=== PATIENT | female | born 1935 | race Caucasian/White ===

== ENCOUNTER 2017-12-19 06:01 | Inpatient (IN) | payer MEDICARE, OTHER, SELFPAY ==
[2017-12-04 14:38] VITALS: BP 141/81; PULSE 71; RESP 16; TEMP 36.2; O2SAT 95; BMI 32.1
--- NOTE | 2017-12-04 14:50 | SDCEKG_ITS ---
Test Reason : Blood Pressure : / mmHG Vent. Rate : 076 BPM Atrial Rate : 048 BPM P-R Int : 152 ms QRS Dur : 102 ms QT Int : 402 ms P-R-T Axes : 030 -02 036 degrees QTc Int : 452 ms Sinus rhythm with frequent Premature ventricular complexes Poor R wave progression Abnormal ECG Confirmed by CLARENCE DIXON, FLAKITO ([id number]), material expeditor JUAN J SALAZAR ([id number]) on 12/06/2017 11:34:57 AM Referred By: Camilo Maya Confirmed By:FLAKITO LIMA MD
[2017-12-04 15:18] LABS: Absolute Lymphocyte Count 1.33 X10^3/ul (0.83-4.51); Basophil# 0.04 X10^3/uL; Basophil% 0.6 % (0-1); Eosinophil# 0.09 X10^3/uL; Eosinophils% 1.3 % (0-5); Hematocrit 40.5 % (37-47); Hemoglobin 13.2 g/dl (12.0-15.0); Lymphocyte # 1.33 X10^3/ul (4.0); Lymphocyte % 18.6 % (19-41); Mean Corp Hgb Conc 32.6 g/gl (32-36); Mean Corpuscular Hgb 31.1 pg (27.0-32.0); Mean Corpuscular Volume 95.5 fL (81-99); Monocyte# 0.67 X10^3/uL; Monocyte% 9.4 % (0-10); Neutrophil # 5.01 X10^3/uL (2.7-7.7); Neutrophil % 69.8 % (47-70); Platelet Count 228 K/mm3 (150-450); RBC Distribution Width CV 12.8 % (11.6-14.6); RBC Distribution Width SD 43.1 fl (35.1-43.9); Red Blood Count 4.24 M/mm3 (4.2-5.4); White Blood Count 7.2 K/mm3 (4.4-11.0)
[2017-12-04 15:22] LABS: POSITIVE COUNT NO; POSITIVE DIFFERENTIAL NO; POSITIVE MORPHOLOGY NO
[2017-12-04 15:26] LABS: Partial Thromboplast Time 29.4 Seconds (24.1-36.2)
[2017-12-04 15:47] LABS: Anion Gap 6 (5-15); BUN 21 mg/dL (7-18); BUN/Creat Ratio 20.4 RATIO (10-20); Calcium,Total 9.1 mg/dL (8.5-10.1); Chloride 109 mmol/L (98-107); Creatinine, Serum 1.03 mg/dL (0.55-1.02); EST Glomerular Filtration Rate 55 mL/min (>60); Est Glom Filt Rate - Afr Amer 66 mL/min (>60); Glucose 105 mg/dL (70-110); Potassium 4.5 mmol/L (3.5-5.1); Sodium Level 146 mmol/L (136-145); Thyroid Stim Hormone (TSH) 0.95 uIU/mL (0.358-3.74)
[2017-12-04 16:00] LABS: Hemoglobin A1c 6.5 % (4.2-6.3)
--- NOTE | 2017-12-06 13:23 | HP.PCM_ITS ---
History and Physical DATE OF SERVICE: 12/19/2017 SCHEDULED PROCEDURE: Direct anterior right total hip arthroplasty HISTORY OF PRESENT ILLNESS: This is an 82-year-old female who is been having ongoing pain in her right hip for the past 6-8 months. Patient states her pain is constant, dull, aching, and sharp. She has increased pain walking any amount of distance and for standing. Sitting and laying down are temporarily helpful. She has increased pain with activities of daily living including housework and shopping. Patient states she has fallen as well as tripped and stumbled due to her right hip pain. Patient complains of pain over the right lateral hip that radiates down into the leg and foot. She does report some numbness and tingling. Pain does awaken her at night. Patient has tried conservative measures consisting of ice , heat, and elevation with temporary relief. She has tried physical therapy with no relief in symptoms. Patient has tried [id number] Tylenol as well as meloxicam with no significant relief in symptoms. She has been using a cane and walker due to the pain. She does wear a back brace. After failing conservative measures and discussing all treatment options with Dr. Maya, the patient would like to proceed with a right total hip arthroplasty. Patient has obtained surgical clearance from her primary care physician Dr. 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 Patient has a medical history pertinent for hypertension , diabetes, as well as nonischemic cardiomyopathy. He currently denies any chest pain, shortness of breath, fevers chills, or recent infections REVIEW OF SYSTEMS: ROS: Const: Denies anorexia, anxiety, change in appetite, fever, hard of hearing, vision problems and weight change. CV: Denies chest pain, heart murmur, irregular heartbeat and peripheral vascular disease. Resp: Denies asthma, cough, pneumonia, sleep apnea, SOB, tuberculosis and wheezing. GI: Reports heartburn, but denies constipation, diarrhea, difficulty swallowing , nausea, bloody stools and vomiting. : Genital: reports postmenopausal. Urinary: denies incontinence. Musculo: Denies leg swelling, limp, trouble walking and weakness. Skin: Denies Raynaud's, history of shingles and tattoo. Neuro: Denies ambulatory dysfunction, dizziness, numbness/tingling and tremor. Psych: Denies anxiety, depression, insomnia, mental illness and stress. Noe/Lymph: Denies anemia, bleeding/bruising tendency and past transfusion. Reviewed, no changes. PAST MEDICAL HISTORY: Advance Care Plan: Other Directive, POA Effective Date: 08/11/2016 Other Directive, LIVING WILL Effective Date: 08/11/2016 PMH: Medical Problems: Diabetes, High Blood Pressure, Asthma, Hypercholesterolemia, Thyroid Disease Accidents: None Surgical Hx: Bunion - BILAT FEET Finger - RT RING FINGER RT TKR - (06/28/2010) [place] @ [facility] LT Hip Nakul - (11/13/2012) [facility] @ [place] Back - (2011) Microdiskectomy - (03/2014) [place] @ [facility] Anesthesia Complications: None Assistive Devices: Glasses, Dentures - PARTIAL Reviewed, no changes. SOCIAL HISTORY: SH: Marital: .Occupation: Retired.Work Status: Retired.Hand Dominance: Ambidextrous. Personal Habits: Smoking: Patient has never smoked.Cigarette Use: Never.Alcohol : Denies use.Drug Use: Denies Use.Enjoy Exercising: Never Exercises. Reviewed, no changes. VITALS: Ht: 65 Wt: 188lb Wt k.277 BMI: 31.3 BP: 120/82 Pulse: 78 Resp: 16 T: 97.8 T: 36.6C ALLERGIES: No Known Drug Allergy MEDICATIONS: Metformin 500mg 1 tab PO bid, Simvastatin 40 mg 1 tab PO daily, Aspir-81 81 mg 1 tab PO daily, Levothyroxine Sodium 75mcg 1 tab PO daily, Omeprazole 40 mg 1 cap PO daily, Gabapentin 400 mg 1 cap PO tid, Glipizide 5 mg 1 tab PO bid, Losartan Potassium 100 mg 1 tab PO daily, Bupropion HCL SR 150 mg 1 tab PO bid, Meloxicam 15 mg 1 by mouth every day, Furosemide 40 mg 1 by mouth every day, Iron 325 (65 Fe) MG 1 by mouth every day, Cyclobenzaprine HCL 10 mg 1 by mouth at bedtime, Symbicort 160-4.5 mcg/Act 2 puffs PO daily, Albuterol Mdi 90 mcg/ Act 2-3 puffs every 6 hours as needed, Klor-Con M10 10 Meq 1 by mouth every day , Loperamide HCL 2 mg one PO daily, Glucerna Advance Shake drink daily, Proair HFA 108 (90 Base) mcg/Act 2 puffs as needed, Carvedilol 12.5 mg 1po qday PRE-OP EXAM: General appearance:NORMAL Other: Eyes: Conjunctivae and lids: NORMAL Pupils: ERR Ears, Nose, Mouth, and Throat: NORMAL Other: Inspection of lips, teeth and gums: NORMAL Other: Neck: Examination of neck: no masses noted. Respiratory: Assessment of respiratory effort: NORMAL Other: Ausculation of lungs: clear to ausculation no wheeses, ronchi or rales. Cardiovascular: Ausculation of heart: regular rate and rhythem, no mummurs, gallops or rubs. Exam of carotid arteries: NORMAL Other: Gastrointestinal: Exam of abdomen: soft, nontender, nondistended bowel sounds present. Lymphatic: Palpation of nodes in neck: NORMAL Other: Palpation of nodes in Axillae: NORMAL Other: Neurological: see below Psychiatric: Orientation to time, place and person: NORMAL Other: Mood and affect: NORMAL Other: PHYSICAL EXAMINATION: Patient walks with an antalgic gait. Patient has increased pain with movement of the right hip including flexion and internal rotation. She has flexion to 70 ?, internal rotation to neutral, external rotation to 20?. Sensations intact to light touch. Neurovascularly intact. IMAGING STUDIES: X-rays were obtained at [facility] on June 07, 2017 which shows joint space narrowing, subchondral sclerosis, and osteophyte formation consistent with severe osteoarthritis with a previous left hip hemiarthroplasty cemented. IMPRESSION: 1. Severe right hip osteoarthritis 2. Hypertension 3. Type 2 diabetes mellitus 4. Asthma 5. Hypercholesterolemia 6. Thyroid disease 7. Nonischemic cardiomyopathy PLAN: Dr. Maya did discuss and review with the patient all treatment options including surgical versus nonsurgical. Patient wishes to proceed with above- stated procedure. Potential risks, benefits, and complications of this procedure were discussed in detail including but not limited to , infection , nerve and blood vessel damage, persistent pain, numbness, tingling, paresthesias, blood clot, pulmonary embolism, and requirement for further surgery. The patient expressed full understanding has no further questions for the doctor. Patient does agree to proceed with the above-stated procedure and has signed the surgery consent form. ___ I have re-examined the patient. There are no clinical changes since date of exam. ___ See progress notes for changes. ___ Dictated on admission Date: Time: Signature:
--- NOTE | 2017-12-12 11:06 | CASEMGMT ---
Social Work Note Attempted to place call to pt 3x, and phone rang busy without an option to leave a vm. RN CM to f/u with post-operatively. Matilde Lazar, [employer]P [employer] CLIENT INSIGHTS CONSULTANT
[2017-12-19] VITALS (17 sets, daily range): BP systolic 102–137; BP diastolic 47–81; PULSE 70–83; RESP 16–18; TEMP 35.6–36.8; O2SAT 94–100; BMI 32.1; BMI 34.5
[2017-12-19] MEDS: oxyCODONE HCl Cr 10 MG Tablet PO (06:49)
[2017-12-19] MEDS: Celecoxib 200 MG Capsule 400 MG PO (06:49)
[2017-12-19] MEDS: Acetaminophen 500 MG Tablet 1000 MG PO ×3 (06:49→22:20)
[2017-12-19 07:01] LABS: Bedside Glucose 161 mg/dL (70-110)
[2017-12-19] MEDS: Lactated Ringers 1,000 ML 999 ML IV (07:15)
[2017-12-19] MEDS: Cefazolin 2 GM in 0.9% Normal Saline 100 ML IV (08:02)
--- NOTE | 2017-12-19 08:15 | RAD_ITS ---
STUDY: X-RAY - PELVIS AND RIGHT HIP REASON FOR EXAM: Female, 82 years old. Total anterior hip replacement. TECHNIQUE: Radiological exam, hip, unilateral, with pelvis when performed; 1 view COMPARISON: None. FINDINGS: Fluoroscopic imaging provided for right total hip replacement. There is good alignment. RAD/Hip 1 view with Pelvis IMPRESSION: Status post right total hip replacement. There is good alignment. Electronically Signed: Felix Ziegler MD at 11:43 EST Tel [phone], Service support ,
--- NOTE | 2017-12-19 09:44 | OP.PCM_ITS ---
Report of Operation Date of Procedure: 12/19/17 Pre-Operative Diagnosis: Right hip primary osteroarthritis Post-Operative Diagnosis: Right hip primary osteroarthritis Surgery/Procedure Performed:: Right direct anterior total hip replacement Description of Surgical Findings:: stAble hip with equal leg lengths paint sprayer sandblaster: Patria Gaytan paint sprayer sandblaster: Dorian Gregorio MS3 Type of Anesthesia:: Spinal Anesthesiologist: Tai Bedoya Special Medications: 2 g Ancef, 1 g TXA at incision, 1 g TXA closure, 10 mg Decadron, joint cocktail (5 mg Duramorph, 30 mL of 0.5% Ropivicaine, 1000 units of epinephrine, 30 mg of Toradol) Specimen's removed: Bony cuts Estimated Blood Loss (mL): 150 Fluids Replaced: 1900 milliliters crystalloid Description of Procedure: Components used: 1. Accolade 2 Divide femoral stem size 5 132? 2. Melisa trident acetabular shell size 56 mm 3. Melisa X3 polyethylene F 4. Divide Biolox delta 36mm, 0mm femoral head Brief history operative indications: 82 yo f who failed conservative measures for their hip osteoarthritis. X-rays were consistent with osteoarthritis including joint space narrowing, osteophyte formation and subchondral cysts. Total hip replacement was discussed with the patient with risks and benefits including but not limited to blood loss, DVTs, PEs, neurovascular damage, dislocation, general risks of anesthesia including loss of life. Patient demonstrated an understanding medical clearance is obtained the patient was consented for surgery. Procedure: On the date of procedure the patient's r hip was marked in the preoperative area. Patient was then taken back to the operating room where anesthesia assumed control of the C-spine and airway and administered anesthetic. Patient was transferred to the operating table and placed in the supine position. The hips were placed at the break of the bed and a sacral bump was placed. The r lower extremity was then prepped out in a sterile fashion using chlorhexidine while the surgeon scrubbed. The PA was vital in the positioning of the patient. Upon reentering the room the r lower extremity was draped in the standard orthopedic fashion and the incision was marked. A timeout was called and everyone agreed upon the side, the site, the procedure be performed, antibody given, and patient's identity. At this time incision was made through skin, subcutaneous tissue, and fat down to fascia. The fascia was then incised and the TFL was retracted laterally. A retractor was placed on the lateral border of the femoral neck. Attention was directed to the inferior portion of the approach and all crossing vessels were identified and appropriately coagulated. A retractor was then placed on the medial portion of the femoral neck. The anterior capsule was then cleared of all soft tissue and then H shaped capsulotomy was made. The retractors were then placed inside the capsule. The femoral neck was identified and a cleanup cut was made. At this time a power corkscrew was used to remove the femoral head. Attention was then turned toward the acetabulum where the soft tissues were appropriately retracted and the acetabulum was sequentially reamed to 55 mm. A 56 mm cup was then selected and impacted into place. Acetabular liner was impacted into place and locking mechanism was verified. The position of the acetabular cup was then verified under live fluoroscopy. Attention was then turned to the femur. Soft tissue releases on the medial and lateral femoral neck were appropriately done, the leg was externally rotated and lateralized. A Salazar retractor was placed medially and proximally to the greater trochanter this allowed appropriate visualization and exposure of the femoral canal. Rongeour was then used to remove excess lateral bone. A canal finder and entry broach were used to open the proximal canal. Once we verified we were down the femoral canal we subsequently broached up to a size 5 femur. The appropriate neck was placed in the previously selected head was trialed with a 0 mm neck. Traction was pulled and the hip was reduced with internal rotation. Once it was appropriately reduced and stability was checked. There was minimal shuck, equal leg lengths and appropriate stability with hyperextension and external rotation as well as with 90? flexion and internal rotation. Fluoroscopy was then also used to verify the position of the components and leg lengths using the contralateral side for comparison. The trial components were then dislocated the proximal femur was again exposed and the components were removed from the wound. The final components were verified and opened. The wound was copiously irrigated out with normal saline. The acetabulum was checked for any residual debris. The final components were placed and impacted. Traction and internal rotation were again used to reduce the hip. After adequate reduction the hip remained stable with appropriate leg lengths. The final components were once again checked with live fluoroscopy and were found to be satisfactory. The wound was then copiously irrigated with normal saline once more, and hemostasis was obtained. Closure was then done using #1 Vicryl runner to close the fascia. A 2-0 vicryl interuppted sutures were used to close the subcutaneous skin. A 3-0 Monocryl and Steri-Strips were used for final skin closure. A Silverlon dressing was placed. Patient was awakened by anesthesia and transferred to the [facility]. Patient was then transferred to the PACU for recovery. Postoperative plan: Patient will get 24 hours postop antibiotics. Patient will get in-house physical therapy and will be weight-bear as tolerated. Patient will follow up in office in 2 weeks for a wound check and x-rays. Grafts/Implants Used: Melisa - Complications none - Admit VTE Documentation VTE Present on Admission: No VTE Mechan Device Prophylaxis: SCD's, Thigh High CAMPBELL Hose VTE Pharm Prophylaxis ordered?: Yes
[2017-12-19] MEDS: Scopolamine 1mg/72hr Patch 1 PATCH TD (10:12)
--- NOTE | 2017-12-19 10:15 | RAD_ITS ---
STUDY: X-RAY - PELVIS AND RIGHT HIP REASON FOR EXAM: Female, 82 years old. Status post right total hip replacement. TECHNIQUE: Radiological exam, hip, unilateral, with pelvis when performed; 2 or 3 views. COMPARISON: None. FINDINGS: The patient is status post right total hip replacement. There is good alignment. Postoperative soft tissue changes. RAD/Hip Min 2 Views (Portable) IMPRESSION: Status post total hip replacement. There is good alignment. Electronically Signed: Felix Ziegler MD at 11:50 EST Tel [phone], Service support ,
[2017-12-19 10:50] LABS: Bedside Glucose 171 mg/dL (70-110)
--- NOTE | 2017-12-19 12:02 | CASEMGMT ---
Social Work Note Call from [place] stating that the pt had called her requesting a bed, and she confirms she would be able to accept the pt. Will confirm plan with pt upon arrival to floor. Transfer Summary to ECF on chart for physician to complete. SW to continue to follow and assist with discharge planning. Matilde Lazar, DEPENDENCY CASE MANAGER PLAN CONSULTANT
[2017-12-19] MEDS: Albuterol 2.5 MG/3 ML VIAL.NEB. INHALATION ×2 (12:50→19:01)
[2017-12-19] MEDS: Budesonide Respules 0.5 MG/2 ML AMPUL.NEB. INHALATION ×2 (12:50→19:01)
[2017-12-19] MEDS: Lactated Ringers 1,000 ML 125 ML IV (13:51)
[2017-12-19] MEDS: Furosemide 20 MG Tablet PO (13:54)
[2017-12-19] MEDS: Gabapentin 400 MG Capsule PO (13:56)
--- NOTE | 2017-12-19 14:12 | PCM.CONS.GEN ---
Problem List (1) CAD (coronary artery disease) Status: Chronic (2) Asthma Status: Chronic (3) Nonrheumatic mitral (valve) prolapse Status: Chronic (4) Benign hypertension Status: Chronic (5) Type 2 diabetes mellitus Status: Chronic (6) Gastroesophageal reflux disease Status: Chronic (7) Hyperlipidemia Status: Chronic Qualifiers: Hyperlipidemia type: pure hypercholesterolemia Qualified Code(s): E78.00 - Pure hypercholesterolemia, unspecified; E78.00 - Pure hypercholesterolemia, unspecified; E78.00 - Pure hypercholesterolemia, unspecified; E78.0 - Pure hypercholesterolemia (8) Hypothyroidism Status: Chronic (9) Osteoarthritis Status: Chronic Reason for Consult Date of Consultation: 12/19/17 Reason for Consultation: Consult requested by Dr. Maya for postoperative medical management History of Present Illness: The patient is a 82 year old F underwent a right direct anterior total hip replacement by Dr. Maya. Patient seen eating lunch and denies any pain at this time. [] Past Medical History Past Medical History (Chronic Problems): Chronic Problems (Last Reviewed 11/06/17 @ 13:33 by Patrick Duenas MD) CAD (coronary artery disease) (Chronic) PVC's (premature ventricular contractions) (Chronic) Nonischemic cardiomyopathy (Chronic) Non-ST elevation (NSTEMI) myocardial infarction (Chronic) Acute respiratory failure (Chronic) Asthma (Chronic) Nonrheumatic mitral (valve) prolapse (Chronic) Nonrheumatic mitral (valve) insufficiency (Chronic) Asthma exacerbation (Chronic) Elevated troponin (Chronic) Benign hypertension (Chronic) Type 2 diabetes mellitus (Chronic) Gastroesophageal reflux disease (Chronic) Hyperlipidemia (Chronic) Hypothyroidism (Chronic) Osteoarthritis (Chronic) Hx of fracture of hip (Chronic) Chronic pain (Chronic) Respiratory failure (Chronic) Acute respiratory failure (Chronic) Non-STEMI (non-ST elevated myocardial infarction) (Chronic) Cardiomyopathy (Chronic) PVT (paroxysmal ventricular tachycardia) (Chronic) Allergies codeine Adverse Reaction (Verified 12/04/17 14:05) constipation Home Medications: Ambulatory Orders Medication Instructions Recorded Aspirin [Aspirin, Baby] 81 mg PO DINNER 11/12/13 Carvedilol [Coreg (Beta Jin)] 12.5 mg PO BID 11/12/13 Gabapentin [Neurontin] 400 mg PO TID 11/12/13 Levothyroxine [Synthroid] 75 mcg PO DAILY 11/12/13 Metformin HCl [Glucophage] 500 mg PO BID 11/12/13 Omeprazole [Prilosec] 40 mg PO DAILY 11/12/13 Simvastatin [Zocor] 40 mg PO QHS 11/12/13 BuPROPion (SR) [Wellbutrin Sr] 150 mg PO BID 10/17/15 Meloxicam [Mobic] 15 mg PO DAILY 10/17/15 ferrous sulfate 325 mg (65 mg 325 mg PO QHS tab 11/02/17 iron) tablet glipizide 5 mg tablet 5 mg PO QDAY 11/02/17 losartan 50 mg tablet 50 mg PO QHS 90 Days #90 tab 11/02/17 budesonide-formoterol HFA 160 2 puff INHALATION BID g 11/06/17 mcg-4.5 mcg/actuation aerosol inhaler cyclobenzaprine 10 mg tablet 10 mg PO TID PRN 11/06/17 furosemide 20 mg tablet 20 mg PO QDAY 11/06/17 loperamide 2 mg capsule 2 mg PO Q1-4H PRN 11/06/17 Albuterol IH (ProAir) [Proair Hfa 2 puff INHALATION Q6H PRN PRN 12/04/17 (SP)Vent Pts] Albuterol Inhaler [Ventolin Hfa] 1 - 2 puff INHALATION BID PRN 12/04/17 Glucerna Shake 120 ml PO DAILY 12/04/17 Potassium Chloride [Klor-Con 10] 20 meq PO DAILY 12/04/17 Sulfamethoxazole/Trimethoprim 1 each PO BID 12/19/17 [Sulfamethoxazole-Tmp Ds Tablet] Surgical History: cataract, total knee arthroplasty Smoking Status: Never smoker - *Family History Maternal History Items: No pertinent history, - - no Heart disease Review of Systems Constitutional: Denies: Chills, Fever, Weight Change Eyes: Denies: Blurred vision, Double vision HEENT: Denies: Head Aches, Sinus Congestion, Sinus Drainage Cardiovascular: Denies: Chest Pain, Palpitations Respiratory: Denies: Cough, Shortness of breath at rest, Sputum production Gastrointestinal: Denies: Abdominal Pain, Nausea, Vomiting Genitourinary: Denies: Dysuria Musculoskeletal: Denies: Joint Pain, Joint Tenderness Skin: Denies: Rash, Wounds Neurological: Denies: Numbness, Tingling, Focal weakness Psychiatric: Reports: Depression. Denies: Anxiety Hematologic/ Lymphatic: Denies: Easy Bruising, Easy Bleeding, Hx of blood clot - Physical Exam General: Alert, Cooperative, No apparent distress, - - up eating lunch HEENT: Atraumatic, Normocephalic Oral: Moist Mucosa, No Gingival or Mucosal Lesions/ Ulcerations Neck: No Nodes, Thyroid Normal Size and Texture Lungs: Clear to auscultation, Normal air movement, No rhonchi, No wheeze Cardiovascular: Regular rate, Regular Rhythm, Normal S1, Normal S2 Abdomen: Bowel Sounds Present, Soft, Non Tender, Non-Distended, No Hepato-splenomegaly Extremities: No edema, No Calf Tenderness Skin: No rashes, No breakdown Musculoskeletal: No Tenderness to Palpation of Joints or Extremities, No Muscle Wasting Psych/Mental Status: Normal Affect, Appropriate Vital Signs Temp Pulse Resp BP Pulse Ox 36.7 C 79 18 124/56 H 95 12/19/17 12:10 12/19/17 13:11 12/19/17 13:13 12/19/17 12:10 12/19/17 13:13 Oxygen Delivery Method Room Air Weight: 94.2 kg Body Mass Index (BMI) 34.5 Finger Stick Blood Glucose 171 Intake and Output for Last 24 Hours 12/17/17 12/18/17 12/19/17 23:59 23:59 23:59 Intake Total 2300 / 2300 Balance 2300 / 2300 POC Glucose 12/19/17 12/19/17 10:46 06:34 POC Glucose 171 H 161 H Assessment/Plan 1. Status post right hip replacement doing remarkably well so far. Further management per orthopedics 2. Diabetes mellitus type 2 Continue with glipizide and metformin I have added sliding scale insulin 3. DVT prophylaxis Management per orthopedics, patient is on aspirin 325 mg twice daily. For the consult. Hospitalist service will follow along. Code Visit Inpatient E&M: 80067 Init Hosp L2
--- NOTE | 2017-12-19 14:19 | CON.PCM_ITS ---
Problem List (1) CAD (coronary artery disease) Status: Chronic (2) Asthma Status: Chronic (3) Nonrheumatic mitral (valve) prolapse Status: Chronic (4) Benign hypertension Status: Chronic (5) Type 2 diabetes mellitus Status: Chronic (6) Gastroesophageal reflux disease Status: Chronic (7) Hyperlipidemia Status: Chronic Qualifiers: Hyperlipidemia type: pure hypercholesterolemia Qualified Code(s): E78.00 - Pure hypercholesterolemia, unspecified; E78.00 - Pure hypercholesterolemia, unspecified; E78.00 - Pure hypercholesterolemia, unspecified; E78.0 - Pure hypercholesterolemia (8) Hypothyroidism Status: Chronic (9) Osteoarthritis Status: Chronic Reason for Consult Date of Consultation: 12/19/17 Reason for Consultation: Consult requested by Dr. Maya for postoperative medical management History of Present Illness: The patient is a 82 year old F underwent a right direct anterior total hip replacement by Dr. Maya. Patient seen eating lunch and denies any pain at this time. [] Past Medical History Past Medical History (Chronic Problems): Chronic Problems (Last Reviewed 11/06/17 @ 13:33 by Patrick Duenas MD) CAD (coronary artery disease) (Chronic) PVC's (premature ventricular contractions) (Chronic) Nonischemic cardiomyopathy (Chronic) Non-ST elevation (NSTEMI) myocardial infarction (Chronic) Acute respiratory failure (Chronic) Asthma (Chronic) Nonrheumatic mitral (valve) prolapse (Chronic) Nonrheumatic mitral (valve) insufficiency (Chronic) Asthma exacerbation (Chronic) Elevated troponin (Chronic) Benign hypertension (Chronic) Type 2 diabetes mellitus (Chronic) Gastroesophageal reflux disease (Chronic) Hyperlipidemia (Chronic) Hypothyroidism (Chronic) Osteoarthritis (Chronic) Hx of fracture of hip (Chronic) Chronic pain (Chronic) Respiratory failure (Chronic) Acute respiratory failure (Chronic) Non-STEMI (non-ST elevated myocardial infarction) (Chronic) Cardiomyopathy (Chronic) PVT (paroxysmal ventricular tachycardia) (Chronic) Allergies codeine Adverse Reaction (Verified 12/04/17 14:05) constipation Home Medications: Ambulatory Orders Medication Instructions Recorded Aspirin [Aspirin, Baby] 81 mg PO DINNER 11/12/13 Carvedilol [Coreg (Beta Jin)] 12.5 mg PO BID 11/12/13 Gabapentin [Neurontin] 400 mg PO TID 11/12/13 Levothyroxine [Synthroid] 75 mcg PO DAILY 11/12/13 Metformin HCl [Glucophage] 500 mg PO BID 11/12/13 Omeprazole [Prilosec] 40 mg PO DAILY 11/12/13 Simvastatin [Zocor] 40 mg PO QHS 11/12/13 BuPROPion (SR) [Wellbutrin Sr] 150 mg PO BID 10/17/15 Meloxicam [Mobic] 15 mg PO DAILY 10/17/15 ferrous sulfate 325 mg (65 mg 325 mg PO QHS tab 11/02/17 iron) tablet glipizide 5 mg tablet 5 mg PO QDAY 11/02/17 losartan 50 mg tablet 50 mg PO QHS 90 Days #90 tab 11/02/17 budesonide-formoterol HFA 160 2 puff INHALATION BID g 11/06/17 mcg-4.5 mcg/actuation aerosol inhaler cyclobenzaprine 10 mg tablet 10 mg PO TID PRN 11/06/17 furosemide 20 mg tablet 20 mg PO QDAY 11/06/17 loperamide 2 mg capsule 2 mg PO Q1-4H PRN 11/06/17 Albuterol IH (ProAir) [Proair Hfa 2 puff INHALATION Q6H PRN PRN 12/04/17 (SP)Vent Pts] Albuterol Inhaler [Ventolin Hfa] 1 - 2 puff INHALATION BID PRN 12/04/17 Glucerna Shake 120 ml PO DAILY 12/04/17 Potassium Chloride [Klor-Con 10] 20 meq PO DAILY 12/04/17 Sulfamethoxazole/Trimethoprim 1 each PO BID 12/19/17 [Sulfamethoxazole-Tmp Ds Tablet] Surgical History: cataract, total knee arthroplasty Smoking Status: Never smoker - *Family History Maternal History Items: No pertinent history, - - no Heart disease Review of Systems Constitutional: Denies: Chills, Fever, Weight Change Eyes: Denies: Blurred vision, Double vision HEENT: Denies: Head Aches, Sinus Congestion, Sinus Drainage Cardiovascular: Denies: Chest Pain, Palpitations Respiratory: Denies: Cough, Shortness of breath at rest, Sputum production Gastrointestinal: Denies: Abdominal Pain, Nausea, Vomiting Genitourinary: Denies: Dysuria Musculoskeletal: Denies: Joint Pain, Joint Tenderness Skin: Denies: Rash, Wounds Neurological: Denies: Numbness, Tingling, Focal weakness Psychiatric: Reports: Depression. Denies: Anxiety Hematologic/ Lymphatic: Denies: Easy Bruising, Easy Bleeding, Hx of blood clot - Physical Exam General: Alert, Cooperative, No apparent distress, - - up eating lunch HEENT: Atraumatic, Normocephalic Oral: Moist Mucosa, No Gingival or Mucosal Lesions/ Ulcerations Neck: No Nodes, Thyroid Normal Size and Texture Lungs: Clear to auscultation, Normal air movement, No rhonchi, No wheeze Cardiovascular: Regular rate, Regular Rhythm, Normal S1, Normal S2 Abdomen: Bowel Sounds Present, Soft, Non Tender, Non-Distended, No Hepato- splenomegaly Extremities: No edema, No Calf Tenderness Skin: No rashes, No breakdown Musculoskeletal: No Tenderness to Palpation of Joints or Extremities, No Muscle Wasting Psych/Mental Status: Normal Affect, Appropriate Vital Signs Temp Pulse Resp BP Pulse Ox 36.7 C 79 18 124/56 H 95 12/19/17 12:10 12/19/17 13:11 12/19/17 13:13 12/19/17 12:10 12/19/17 13:13 Oxygen Delivery Method Room Air Weight: 94.2 kg Body Mass Index (BMI) 34.5 Finger Stick Blood Glucose 171 Intake and Output for Last 24 Hours 12/17/17 12/18/17 12/19/17 23:59 23:59 23:59 Intake Total 2300 / 2300 Balance 2300 / 2300 POC Glucose 12/19/17 12/19/17 10:46 06:34 POC Glucose 171 H 161 H Assessment/Plan 1. Status post right hip replacement * doing remarkably well so far. * Further management per orthopedics 2. Diabetes mellitus type 2 * Continue with glipizide and metformin * I have added sliding scale insulin 3. DVT prophylaxis * Management per orthopedics, patient is on aspirin 325 mg twice daily. For the consult. Hospitalist service will follow along. Code Visit Inpatient E&M: 11530 Init Hosp L2
[2017-12-19] MEDS: Cefazolin 1 GM/50 ML BAG IV (15:44)
[2017-12-19] MEDS: Aspirin 325 MG Tablet PO (15:45)
[2017-12-19 16:06] LABS: Bedside Glucose 321 mg/dL (70-110)
[2017-12-19] MEDS: Senna/Docusate Sodium 1 Tablet 2 TABLET PO (22:18)
[2017-12-19] MEDS: Carvedilol 12.5 MG Tablet PO (22:19)
[2017-12-19] MEDS: Losartan Potassium 50 MG Tablet PO (22:19)
[2017-12-19] MEDS: Atorvastatin Calcium 20 MG Tablet PO (22:19)
[2017-12-19] MEDS: Ferrous Sulfate 325 MG Tablet PO (22:19)
[2017-12-19] MEDS: Smz/Tmp Ds Tablet 1 TABLET PO (22:20)
[2017-12-19 22:36] LABS: Bedside Glucose 189 mg/dL (70-110)
[2017-12-20] MEDS: Cefazolin 1 GM/50 ML BAG IV (00:13)
[2017-12-20] MEDS: Lactated Ringers 1,000 ML 125 ML IV (00:13)
[2017-12-20 03:21] VITALS: BP 120/63; PULSE 70; RESP 16; TEMP 36.6; O2SAT 95
[2017-12-20 06:04] LABS: Hemoglobin 11.9 g/dl (12.0-15.0); Mean Corp Hgb Conc 33.1 g/gl (32-36); Mean Corpuscular Volume 93.8 fL (81-99); Platelet Count 209 K/mm3 (150-450); RBC Distribution Width CV 12.5 % (11.6-14.6); RBC Distribution Width SD 41.6 fl (35.1-43.9); Red Blood Count 3.84 M/mm3 (4.2-5.4); White Blood Count 12.8 K/mm3 (4.4-11.0)
[2017-12-20 06:08] LABS: Scan Indicated on CBC? Y/N NO
[2017-12-20 06:29] LABS: Anion Gap 9 (5-15); BUN 28 mg/dL (7-18); BUN/Creat Ratio 19.6 RATIO (10-20); Calcium,Total 8.7 mg/dL (8.5-10.1); Chloride 103 mmol/L (98-107); Creatinine, Serum 1.43 mg/dL (0.55-1.02); EST Glomerular Filtration Rate 38 mL/min (>60); Est Glom Filt Rate - Afr Amer 45 mL/min (>60); Estimated Creatinine Clearance 28.23 ml/min; Glucose 121 mg/dL (74-106); Potassium 4.5 mmol/L (3.5-5.1); Sodium Level 139 mmol/L (136-145)
[2017-12-20] MEDS: Acetaminophen 500 MG Tablet 1000 MG PO ×3 (06:41→21:33)
[2017-12-20] MEDS: Levothyroxine 75 MCG Tablet PO (06:41)
[2017-12-20] MEDS: Budesonide Respules 0.5 MG/2 ML AMPUL.NEB. INHALATION ×2 (06:54→20:00)
[2017-12-20] MEDS: Albuterol 2.5 MG/3 ML VIAL.NEB. INHALATION ×2 (06:54→19:50)
[2017-12-20 06:56] VITALS: PULSE 72; RESP 16; O2SAT 94
[2017-12-20 06:56] LABS: Bedside Glucose 121 mg/dL (70-110)
[2017-12-20] MEDS: Gabapentin 400 MG Capsule PO ×3 (07:56→17:02)
[2017-12-20] MEDS: Aspirin 325 MG Tablet PO ×2 (07:56→17:02)
[2017-12-20 09:30] VITALS: BP 104/65; PULSE 71; RESP 16; TEMP 37.1; O2SAT 95
[2017-12-20] MEDS: Senna/Docusate Sodium 1 Tablet 2 TABLET PO (09:39)
[2017-12-20] MEDS: Furosemide 20 MG Tablet PO (09:39)
[2017-12-20] MEDS: Famotidine 20 MG Tablet PO (09:39)
[2017-12-20] MEDS: Carvedilol 12.5 MG Tablet PO (09:39)
[2017-12-20] MEDS: Pantoprazole Sodium 40 MG Tablet PO (09:39)
--- NOTE | 2017-12-20 10:03 | PCM.PN.ORT ---
Subjective: The patient was sitting in bed upon examination. Patient denies any chest pain, shortness of breath, dizziness, lightheadedness, nausea or vomiting, or calf pain. Pain is controlled on medications. No adverse overnight events. Just finished with physical therapy and does report soreness in the right hip. Medications are helpful. Plan is for patient to go to transitional care unit due to comorbidities as well as living home alone. Patient is concerned for her safety. Objective: Vital signs stable and afebrile. Patient is able to plantarflex and dorsiflex actively. Sensation is intact to light touch to saphenous, sural, superficial and deep peroneal, and tibial distribution. Dressing is clean dry and intact. Negative Homans bilaterally, negative signs and symptoms of DVT. - Physical Exam General: Alert, Oriented x3, Cooperative, No apparent distress Vital Signs Temp Pulse Resp BP Pulse Ox 98.7 F 71 16 104/65 95 12/20/17 09:30 12/20/17 09:30 12/20/17 09:30 12/20/17 09:30 12/20/17 09:30 Oxygen Delivery Method Room Air Weight: 94.2 kg Body Mass Index (BMI) 34.5 Finger Stick Blood Glucose 171 Intake and Output for Last 24 Hours 12/18/17 12/19/17 12/20/17 23:59 23:59 23:59 Intake Total 3003 / 3003 2588 / 2588 Output Total 3 / 3 Balance 3000 / 3000 2588 / 2588 Laboratory Tests Past 24 Hrs 12/20/17 12/20/17 05:40 05:40 WBC 12.8 H RBC 3.84 L Hgb 11.9 L Hct 36.0 L MCV 93.8 MCH 31.0 MCHC 33.1 RDW 12.5 RDW Differential 41.6 Plt Count 209 MPV 11.0 Sodium 139 Potassium 4.5 Chloride 103 Carbon Dioxide 27.0 Anion Gap 9 BUN 28 H Creatinine 1.43 H Estim Creat Clear Calc 28.23 Est GFR (MDRD) Af Amer 45 L Est GFR (MDRD) Non-Af 38 L BUN/Creatinine Ratio 19.6 Glucose 121 H Calcium 8.7 POC Glucose 12/20/17 12/19/17 12/19/17 06:47 22:30 15:55 POC Glucose 121 H 189 H 321 H 12/19/17 10:46 POC Glucose 171 H Assessment/Plan 1. S/P right direct anterior total hip arthroplasty POD #1 2. Continue Pain Medications: Tylenol and OxyIR 3. DVT Prophylaxis: Aspirin 325 mg twice daily 4. PT/OT: Weightbearing as tolerated 5. H & H: 11.9/36.0, asymptomatic 6. Leukocytosis: Currently 12.8, afebrile. Patient did receive Decadron intraoperatively 7. Encouraged Incentive Spirometry 8. Disposition: Due to patient's comorbidities and safety concerns patient will be going to the transitional care unit here at [facility] upon discharge. Patient will Require a 3 day stay.
--- NOTE | 2017-12-20 10:58 | PCM.PN.HOSP ---
Subjective: feeling good. no hip pain. ambulating (w assist) well. Vitals/I&O's: Vital Signs Temp Pulse Resp BP Pulse Ox 37.1 C 71 16 104/65 95 12/20/17 09:30 12/20/17 09:30 12/20/17 09:30 12/20/17 09:30 12/20/17 09:30 Oxygen Delivery Method Room Air Weight: 94.2 kg Body Mass Index (BMI) 34.5 Finger Stick Blood Glucose 171 Intake and Output for Last 24 Hours 12/18/17 12/19/17 12/20/17 23:59 23:59 23:59 Intake Total 3003 / 3003 2588 / 2588 Output Total 3 / 3 Balance 3000 / 3000 2588 / 2588 General: Alert, Cooperative, No apparent distress HEENT: Atraumatic, Normocephalic Neck: No Nodes, Thyroid Normal Size and Texture Lungs: Clear to auscultation, Normal air movement, No rhonchi, No wheeze Cardiovascular: Regular rate, Regular Rhythm, Normal S1, Normal S2 Abdomen: Bowel Sounds Present, Soft, Non Tender, Non-Distended, No Hepato-splenomegaly Extremities: No edema, No Calf Tenderness Skin: No rashes, No breakdown Psych/Mental Status: Normal Affect, Appropriate Laboratory Results 12/19/17 15:55: POC Glucose 321 H 12/19/17 22:30: POC Glucose 189 H 12/20/17 05:40: WBC 12.8 H, RBC 3.84 L, Hgb 11.9 L, Hct 36.0 L, MCV 93.8, MCH 31.0, MCHC 33.1, RDW 12.5, RDW Differential 41.6, Plt Count 209, MPV 11.0 12/20/17 05:40: Sodium 139, Potassium 4.5, Chloride 103, Carbon Dioxide 27.0, Anion Gap 9, BUN 28 H, Creatinine 1.43 H, Estim Creat Clear Calc 28.23, Est GFR (MDRD) Af Amer 45 L, Est GFR (MDRD) Non-Af 38 L, BUN/Creatinine Ratio 19.6, Glucose 121 H, Calcium 8.7 12/20/17 06:47: POC Glucose 121 H Current Medications Acetaminophen (Tylenol) 1,000 mg PO Q8 MICHELA Last Admin: 12/20/17 06:41 Dose: 1,000 mg Albuterol Sulfate (Ventolin Aerosols) 2.5 mg INHALATION Q4H PRN PRN Reason: SOB AND/OR WHEEZING Albuterol Sulfate (Ventolin Aerosols) 2.5 mg INHALATION Q6HWA.RT [facility] Last Admin: 12/20/17 06:54 Dose: 2.5 mg Aspirin (Aspirin) 325 mg PO BIDCM [facility] Last Admin: 12/20/17 07:56 Dose: 325 mg Atorvastatin Calcium (Lipitor) 20 mg PO QHS [facility] Last Admin: 12/19/17 22:19 Dose: 20 mg Budesonide (Pulmicort Aerosol) 0.5 mg INHALATION Q12H.RT [facility] Last Admin: 12/20/17 06:54 Dose: 0.5 mg Bupropion HCl (Wellbutrin Sr) 150 mg PO BID [facility] Last Admin: 12/20/17 09:39 Dose: 150 mg Carvedilol (Coreg) 12.5 mg PO BID [facility] Last Admin: 12/20/17 09:39 Dose: 12.5 mg Cyclobenzaprine HCl (Flexeril) 10 mg PO TID PRN PRN Reason: MUSCLE SPASMS Dextrose (D50w Syringe) 0 gm IV X1 PRN; Protocol PRN Reason: Hypoglycemia Famotidine (Pepcid) 20 mg PO DAILY [facility] Last Admin: 12/20/17 09:39 Dose: 20 mg Ferrous Sulfate (Ferrous Sulfate) 325 mg PO QHS [facility] Last Admin: 12/19/17 22:19 Dose: 325 mg Furosemide (Lasix) 20 mg PO DAILY [facility] Last Admin: 12/20/17 09:39 Dose: 20 mg Gabapentin (Neurontin) 400 mg PO TIDCM [facility] Last Admin: 12/20/17 07:56 Dose: 400 mg Glipizide (Glucotrol) 5 mg PO DAILY@0800 [facility] Last Admin: 12/20/17 07:56 Dose: 5 mg Glucagon () 1 mg IM .X1 PRN PRN Reason: Hypoglycemia Insulin Aspart (Novolog Flexpen (Bkc)) 0 units SC TIDAC [facility] PRN Reason: Protocol Last Admin: 12/20/17 06:47 Dose: Not Given Ketorolac Tromethamine (Toradol) 15 mg IV Q6H PRN PRN PRN Reason: MILD-MOD PAIN (1-5/10) Levothyroxine Sodium (Synthroid) 75 mcg PO DAILY@0600 [facility] Last Admin: 12/20/17 06:41 Dose: 75 mcg Loperamide HCl (Imodium) 2 mg PO .Q1-4H PRN PRN Reason: Diarrhea Losartan Potassium (Cozaar) 50 mg PO QHS [facility] Last Admin: 12/19/17 22:19 Dose: 50 mg [facility] Last Admin: 12/20/17 07:56 Dose: 500 mg Morphine Sulfate (Morphine) 2 - 4 mg IV Q2H PRN PRN PRN Reason: SEVERE PAIN (6-10/10) Morphine Sulfate (Morphine) 2 - 4 mg IV Q2H PRN PRN PRN Reason: SEVERE PAIN (6-10/10) Nutritional Formula (Lactose Free) (Glucerna Shake) 120 ml PO TIDCM [facility] Last Admin: 12/20/17 07:56 Dose: Not Given Ondansetron HCl (Zofran) 4 mg IV Q8H PRN PRN PRN Reason: NAUSEA Oxycodone HCl (Oxyir) 5 - 10 mg PO Q4H PRN PRN PRN Reason: MOD-SEVERE PAIN (4-10/10) Pantoprazole Sodium (Protonix) 40 mg PO DAILY [facility] Last Admin: 12/20/17 09:39 Dose: 40 mg Potassium [facility] ([facility]Dur) [facility] Last Admin: 12/20/17 07:56 Dose: 20 meq Promethazine HCl (Phenergan (Ll)) 12.5 mg IM Q6H PRN PRN; Protocol PRN Reason: NAUSEA/VOMITING Senna/Docusate Sodium (Senokot-S, Mariana-Colace) 2 tablet PO BID [facility] Last Admin: 12/20/17 09:39 Dose: 2 tablet Assessment/Plan 1. Status post right hip replacement doing remarkably well so far. Further management per orthopedics 2. Diabetes mellitus type 2 Continue with glipizide and metformin I have added sliding scale insulin 3. DVT prophylaxis Management per orthopedics, patient is on aspirin 325 mg twice daily. 4. leukocytosis: likely reactive +/- intraop decadron 5. CKD 3: Cr slightly up from baseline. Monitor. Code Visit Inpatient E&M: 90327 Subs Hosp L2
--- NOTE | 2017-12-20 11:02 | PN_ITS ---
Subjective: feeling good. no hip pain. ambulating (w assist) well. Vitals/I&O's: Vital Signs Temp Pulse Resp BP Pulse Ox 37.1 C 71 16 104/65 95 12/20/17 09:30 12/20/17 09:30 12/20/17 09:30 12/20/17 09:30 12/20/17 09:30 Oxygen Delivery Method Room Air Weight: 94.2 kg Body Mass Index (BMI) 34.5 Finger Stick Blood Glucose 171 Intake and Output for Last 24 Hours 12/18/17 12/19/17 12/20/17 23:59 23:59 23:59 Intake Total 3003 / 3003 2588 / 2588 Output Total 3 / 3 Balance 3000 / 3000 2588 / 2588 General: Alert, Cooperative, No apparent distress HEENT: Atraumatic, Normocephalic Neck: No Nodes, Thyroid Normal Size and Texture Lungs: Clear to auscultation, Normal air movement, No rhonchi, No wheeze Cardiovascular: Regular rate, Regular Rhythm, Normal S1, Normal S2 Abdomen: Bowel Sounds Present, Soft, Non Tender, Non-Distended, No Hepato- splenomegaly Extremities: No edema, No Calf Tenderness Skin: No rashes, No breakdown Psych/Mental Status: Normal Affect, Appropriate Laboratory Results 12/19/17 15:55: POC Glucose 321 H 12/19/17 22:30: POC Glucose 189 H 12/20/17 05:40: WBC 12.8 H, RBC 3.84 L, Hgb 11.9 L, Hct 36.0 L, MCV 93.8, MCH 31.0, MCHC 33.1, RDW 12.5, RDW Differential 41.6, Plt Count 209, MPV 11.0 12/20/17 05:40: Sodium 139, Potassium 4.5, Chloride 103, Carbon Dioxide 27.0, Anion Gap 9, BUN 28 H, Creatinine 1.43 H, Estim Creat Clear Calc 28.23, Est GFR (MDRD) Af Amer 45 L, Est GFR (MDRD) Non-Af 38 L, BUN/Creatinine Ratio 19.6, Glucose 121 H, Calcium 8.7 12/20/17 06:47: POC Glucose 121 H Current Medications Acetaminophen (Tylenol) 1,000 mg PO Q8 MICHELA Last Admin: 12/20/17 06:41 Dose: 1,000 mg Albuterol Sulfate (Ventolin Aerosols) 2.5 mg INHALATION Q4H PRN PRN Reason: SOB AND/OR WHEEZING Albuterol Sulfate (Ventolin Aerosols) 2.5 mg INHALATION Q6HWA.RT [facility] Last Admin: 12/20/17 06:54 Dose: 2.5 mg Aspirin (Aspirin) 325 mg PO BIDCM [facility] Last Admin: 12/20/17 07:56 Dose: 325 mg Atorvastatin Calcium (Lipitor) 20 mg PO QHS [facility] Last Admin: 12/19/17 22:19 Dose: 20 mg Budesonide (Pulmicort Aerosol) 0.5 mg INHALATION Q12H.RT [facility] Last Admin: 12/20/17 06:54 Dose: 0.5 mg Bupropion HCl (Wellbutrin Sr) 150 mg PO BID [facility] Last Admin: 12/20/17 09:39 Dose: 150 mg Carvedilol (Coreg) 12.5 mg PO BID [facility] Last Admin: 12/20/17 09:39 Dose: 12.5 mg Cyclobenzaprine HCl (Flexeril) 10 mg PO TID PRN PRN Reason: MUSCLE SPASMS Dextrose (D50w Syringe) 0 gm IV X1 PRN; Protocol PRN Reason: Hypoglycemia Famotidine (Pepcid) 20 mg PO DAILY [facility] Last Admin: 12/20/17 09:39 Dose: 20 mg Ferrous Sulfate (Ferrous Sulfate) 325 mg PO QHS [facility] Last Admin: 12/19/17 22:19 Dose: 325 mg Furosemide (Lasix) 20 mg PO DAILY [facility] Last Admin: 12/20/17 09:39 Dose: 20 mg Gabapentin (Neurontin) 400 mg PO TIDCM [facility] Last Admin: 12/20/17 07:56 Dose: 400 mg Glipizide (Glucotrol) 5 mg PO DAILY@0800 [facility] Last Admin: 12/20/17 07:56 Dose: 5 mg Glucagon () 1 mg IM .X1 PRN PRN Reason: Hypoglycemia Insulin Aspart (Novolog Flexpen (Bkc)) 0 units SC TIDAC [facility] PRN Reason: Protocol Last Admin: 12/20/17 06:47 Dose: Not Given Ketorolac Tromethamine (Toradol) 15 mg IV Q6H PRN PRN PRN Reason: MILD-MOD PAIN (1-5/10) Levothyroxine Sodium (Synthroid) 75 mcg PO DAILY@0600 [facility] Last Admin: 12/20/17 06:41 Dose: 75 mcg Loperamide HCl (Imodium) 2 mg PO .Q1-4H PRN PRN Reason: Diarrhea Losartan Potassium (Cozaar) 50 mg PO QHS [facility] Last Admin: 12/19/17 22:19 Dose: 50 mg [facility]) [facility] Last Admin: 12/20/17 07:56 Dose: 500 mg Morphine Sulfate (Morphine) 2 - 4 mg IV Q2H PRN PRN PRN Reason: SEVERE PAIN (6-10/10) Morphine Sulfate (Morphine) 2 - 4 mg IV Q2H PRN PRN PRN Reason: SEVERE PAIN (6-10/10) Nutritional Formula (Lactose Free) (Glucerna Shake) 120 ml PO TIDCM [facility] Last Admin: 12/20/17 07:56 Dose: Not Given Ondansetron HCl (Zofran) 4 mg IV Q8H PRN PRN PRN Reason: NAUSEA Oxycodone HCl (Oxyir) 5 - 10 mg PO Q4H PRN PRN PRN Reason: MOD-SEVERE PAIN (4-10/10) Pantoprazole Sodium (Protonix) 40 mg PO DAILY [facility] Last Admin: 12/20/17 09:39 Dose: 40 mg Potassium Chloride (K-Dur) [facility] Last Admin: 12/20/17 07:56 Dose: 20 meq Promethazine HCl (Phenergan (Ll)) 12.5 mg IM Q6H PRN PRN; Protocol PRN Reason: NAUSEA/VOMITING Senna/Docusate Sodium (Senokot-S, Mariana-Colace) 2 tablet PO BID [facility] Last Admin: 12/20/17 09:39 Dose: 2 tablet Assessment/Plan 1. Status post right hip replacement * doing remarkably well so far. * Further management per orthopedics 2. Diabetes mellitus type 2 * Continue with glipizide and metformin * I have added sliding scale insulin 3. DVT prophylaxis * Management per orthopedics, patient is on aspirin 325 mg twice daily. 4. leukocytosis: * likely reactive +/- intraop decadron 5. CKD 3: * Cr slightly up from baseline. Monitor. Code Visit Inpatient E&M: 62932 Subs Hosp L2
[2017-12-20] MEDS: Glucerna Shake 120 ML LIQUID PO ×2 (11:41→18:32)
[2017-12-20 11:46] LABS: Bedside Glucose 100 mg/dL (70-110)
--- NOTE | 2017-12-20 11:52 | CASEMGMT ---
Addendum entered by Swetha Watkins 12/20/17 13:49: TCU will have a pt on Sunday, SW let pt know, pt agreeable. SW will continue to follow for discharge to TCU when ready, likely Sunday. DESEAN Fall, LACING PRESSER Original Note: See assessment. SW spoke w/pt and daughter in room. Pt would like to go to TCU. SW explained referral made, waiting to hear back about bed availability and will let pt know. Pt had called ahead of time and is anticipating there will be a bed. SW will continue to follow. DESEAN Fall, LACING PRESSER
[2017-12-20] MEDS: Magnesium Hydroxide 30 ML UDC PO (12:06)
[2017-12-20] MEDS: oxyCODONE 5 MG Tablet PO (14:47)
[2017-12-20 15:00] VITALS: BP 93/59; PULSE 72; RESP 18; TEMP 37; O2SAT 94
--- NOTE | 2017-12-20 16:06 | CHAPLAIN ---
Type of Pastoral Visit _x__ Initial Visit ___ Follow-up Visit ___ On-call Visit ___ General Patient Visit ___ Spiritual Assessment ___ Family Conference ___ Bereavement ___ Rapid Response ___ Code Blue ___ Other (describe below) Pastoral Care Referral From _x__ Patient ___ Family ___ Nurse ___ Physician ___ Direct Service Worker ___ Electrocardiographic Technician ___ Other (describe below) Sacrament/Intervention ___ Active listening ___ Anointing ___ Yazidism ___ Bereavement ___ Communion ___ Monica exploration ___ ___ Life review _x__ Prayer ___ Reconciliation ___ Sacrament of Sick _x__ Supportive presence ___ Wedding ___ Other (describe below) Pastoral Comments patient desired for her caodaism cashier parking lot to know that she was in the hospital; this chemical mixer contacted her caodaism as requested; pt welcomed prayer and said she was fine otherwise; PT came to give therapy
[2017-12-20 17:31] LABS: Bedside Glucose 154 mg/dL (70-110)
[2017-12-20 19:50] VITALS: PULSE 78; RESP 16
[2017-12-20 20:58] VITALS: BP 95/49; PULSE 66; RESP 18; TEMP 36.6; O2SAT 96
[2017-12-20] MEDS: Ferrous Sulfate 325 MG Tablet PO (21:33)
[2017-12-20] MEDS: Atorvastatin Calcium 20 MG Tablet PO (21:33)
[2017-12-20 23:11] LABS: Bedside Glucose 167 mg/dL (70-110)
[2017-12-21 02:21] VITALS: BP 120/62; PULSE 70; RESP 18; TEMP 36.7; O2SAT 96
[2017-12-21 06:25] LABS: Hematocrit 34.8 % (37-47); Hemoglobin 11.2 g/dl (12.0-15.0); Mean Corp Hgb Conc 32.2 g/gl (32-36); Mean Corpuscular Hgb 30.8 pg (27.0-32.0); Mean Corpuscular Volume 95.6 fL (81-99); Platelet Count 178 K/mm3 (150-450); RBC Distribution Width CV 12.7 % (11.6-14.6); RBC Distribution Width SD 42.8 fl (35.1-43.9); Red Blood Count 3.64 M/mm3 (4.2-5.4); White Blood Count 5.7 K/mm3 (4.4-11.0)
[2017-12-21 06:26] LABS: Scan Indicated on CBC? Y/N NO
[2017-12-21] MEDS: Levothyroxine 75 MCG Tablet PO (06:37)
[2017-12-21] MEDS: Acetaminophen 500 MG Tablet 1000 MG PO ×3 (06:38→22:23)
[2017-12-21 06:50] LABS: Bedside Glucose 132 mg/dL (70-110)
[2017-12-21 07:19] VITALS: PULSE 64; RESP 18
[2017-12-21] MEDS: Budesonide Respules 0.5 MG/2 ML AMPUL.NEB. INHALATION (07:19)
[2017-12-21] MEDS: Albuterol 2.5 MG/3 ML VIAL.NEB. INHALATION ×2 (07:19→13:25)
--- NOTE | 2017-12-21 07:27 | PN.ORTHO_ITS ---
Subjective: The patient was sitting in bedside chair upon examination. Patient denies any chest pain, shortness of breath, dizziness, lightheadedness, nausea or vomiting , or calf pain. Pain is controlled on medications. No adverse overnight events. Patient states she is sore today and may have overdid it yesterday with therapy. Plan is for patient to go to transitional care unit tomorrow. Objective: Vital signs stable and afebrile. Patient is able to plantarflex and dorsiflex actively. Sensation is intact to light touch to saphenous, sural, superficial and deep peroneal, and tibial distribution. Dressing is clean dry and intact. Negative Homans bilaterally, negative signs and symptoms of DVT. - Physical Exam General: Alert, Oriented x3, Cooperative, No apparent distress Vital Signs Temp Pulse Resp BP Pulse Ox 98.1 F 70 18 120/62 96 12/21/17 02:21 12/21/17 02:21 12/21/17 02:21 12/21/17 02:21 12/21/17 02:21 Oxygen Delivery Method Room Air Weight: 94.2 kg Body Mass Index (BMI) 34.5 Finger Stick Blood Glucose 171 Intake and Output for Last 24 Hours 12/19/17 12/20/17 12/21/17 23:59 23:59 23:59 Intake Total 3003 / 3003 2938 / 2938 340 / 340 Output Total 3 / 3 500 / 500 400 / 400 Balance 3000 / 3000 2438 / 2438 -60 / -60 Laboratory Tests Past 24 Hrs 12/21/17 12/21/17 06:13 06:13 WBC 5.7 RBC 3.64 L Hgb 11.2 L Hct 34.8 L MCV 95.6 MCH 30.8 MCHC 32.2 RDW 12.7 RDW Differential 42.8 Plt Count 178 MPV 11.0 Sodium Pending Potassium Pending Chloride Pending Carbon Dioxide Pending Anion Gap Pending BUN Pending Creatinine Pending Est GFR (MDRD) Af Amer Pending Est GFR (MDRD) Non-Af Pending BUN/Creatinine Ratio Pending Glucose Pending Calcium Pending POC Glucose 12/21/17 12/20/17 12/20/17 06:34 23:05 16:58 POC Glucose 132 H 167 H 154 H 12/20/17 11:37 POC Glucose 100 Assessment/Plan 1. S/P right direct anterior total hip arthroplasty POD #2 2. Continue Pain Medications: Tylenol and OxyIR 3. DVT Prophylaxis: Aspirin 325 mg twice daily 4. PT/OT: Weightbearing as tolerated 5. H & H: 11.2/34.8, asymptomatic 6. Leukocytosis: Resolved currently 5.7, afebrile. Patient did receive Decadron intraoperatively 7. Encouraged Incentive Spirometry 8. Disposition: Due to patient's comorbidities and safety concerns patient will be going to the transitional care unit here at [facility] upon discharge. Patient will Require a 3 day stay. Plan will be for discharge to transitional care unit tomorrow December 22, 2017.
[2017-12-21 07:31] LABS: Anion Gap 10 (5-15); BUN 29 mg/dL (7-18); BUN/Creat Ratio 17.9 RATIO (10-20); Calcium,Total 8.2 mg/dL (8.5-10.1); Chloride 106 mmol/L (98-107); Creatinine, Serum 1.62 mg/dL (0.55-1.02); EST Glomerular Filtration Rate 32 mL/min (>60); Est Glom Filt Rate - Afr Amer 39 mL/min (>60); Estimated Creatinine Clearance 24.92 ml/min; Glucose 112 mg/dL (74-106); Potassium 5.1 mmol/L (3.5-5.1); Sodium Level 140 mmol/L (136-145)
[2017-12-21] MEDS: Aspirin 325 MG Tablet PO ×2 (07:53→16:20)
[2017-12-21] MEDS: Gabapentin 400 MG Capsule PO ×3 (07:53→16:20)
[2017-12-21] MEDS: Senna/Docusate Sodium 1 Tablet 2 TABLET PO ×2 (07:53→22:23)
[2017-12-21] MEDS: Carvedilol 12.5 MG Tablet PO ×2 (07:54→22:23)
[2017-12-21] MEDS: Pantoprazole Sodium 40 MG Tablet PO (07:54)
[2017-12-21] MEDS: Famotidine 20 MG Tablet PO (07:54)
[2017-12-21] MEDS: Glucerna Shake 120 ML LIQUID PO ×3 (07:58→16:20)
[2017-12-21] MEDS: Ketorolac 15 MG/ML Vial IV (08:03)
[2017-12-21 08:13] VITALS: BP 117/67; PULSE 78; RESP 14; TEMP 37.2; O2SAT 96
--- NOTE | 2017-12-21 08:43 | CASEMGMT ---
Social Work Note Placed Green Sheet on chart for staff to follow for a Sunday discharge. Plan: TCU for rehabilitation. Matilde Lazar SWIMMING INSTRUCTOR, ENGINE WIPER
--- NOTE | 2017-12-21 10:39 | PCM.PN.HOSP ---
Subjective: Feels good. No current complaints. Vitals/I&O's: Vital Signs Temp Pulse Resp BP Pulse Ox 37.2 C 78 14 117/67 96 12/21/17 08:13 12/21/17 08:13 12/21/17 08:13 12/21/17 08:13 12/21/17 08:13 Oxygen Delivery Method Room Air Weight: 94.2 kg Body Mass Index (BMI) 34.5 Finger Stick Blood Glucose 171 Intake and Output for Last 24 Hours 12/19/17 12/20/17 12/21/17 23:59 23:59 23:59 Intake Total 3003 / 3003 2938 / 2938 340 / 340 Output Total 3 / 3 500 / 500 400 / 400 Balance 3000 / 3000 2438 / 2438 -60 / -60 General: Alert HEENT: Atraumatic, Normocephalic Oral: Moist Mucosa, No Gingival or Mucosal Lesions/ Ulcerations Neck: No Nodes, Thyroid Normal Size and Texture Lungs: Clear to auscultation, Normal air movement, No rhonchi Cardiovascular: Regular rate, Regular Rhythm, Normal S1, Normal S2 Abdomen: Bowel Sounds Present, Soft, Non Tender, Non-Distended, No Hepato-splenomegaly Extremities: No edema, No Calf Tenderness Musculoskeletal: No Tenderness to Palpation of Joints or Extremities, No Muscle Wasting Psych/Mental Status: Normal Affect, Appropriate Laboratory Results 12/20/17 11:37: POC Glucose 100 12/20/17 16:58: POC Glucose 154 H 12/20/17 23:05: POC Glucose 167 H 12/21/17 06:13: WBC 5.7, RBC 3.64 L, Hgb 11.2 L, Hct 34.8 L, MCV 95.6, MCH 30.8, MCHC 32.2, RDW 12.7, RDW Differential 42.8, Plt Count 178, MPV 11.0 12/21/17 06:13: Sodium 140, Potassium 5.1, Chloride 106, Carbon Dioxide 24.0, Anion Gap 10, BUN 29 H, Creatinine 1.62 H, Estim Creat Clear Calc 24.92, Est GFR (MDRD) Af Amer 39 L, Est GFR (MDRD) Non-Af 32 L, BUN/Creatinine Ratio 17.9, Glucose 112 H, Calcium 8.2 L 12/21/17 06:34: POC Glucose 132 H Current Medications Acetaminophen (Tylenol) 1,000 mg PO Q8 [facility] Last Admin: 12/21/17 06:38 Dose: 1,000 mg Albuterol Sulfate (Ventolin Aerosols) 2.5 mg INHALATION Q4H PRN PRN Reason: SOB AND/OR WHEEZING Albuterol Sulfate (Ventolin Aerosols) 2.5 mg INHALATION Q6HWA.RT [facility] Last Admin: 12/21/17 07:19 Dose: 2.5 mg Aspirin (Aspirin) 325 mg PO BIDCM [facility] Last Admin: 12/21/17 07:53 Dose: 325 mg Atorvastatin Calcium (Lipitor) 20 mg PO QHS [facility] Last Admin: 12/20/17 21:33 Dose: 20 mg Budesonide (Pulmicort Aerosol) 0.5 mg INHALATION Q12H.RT [facility] Last Admin: 12/21/17 07:19 Dose: 0.5 mg Bupropion HCl (Wellbutrin Sr) 150 mg PO BID [facility] Last Admin: 12/21/17 07:53 Dose: 150 mg Carvedilol (Coreg) 12.5 mg PO BID [facility] Last Admin: 12/21/17 07:54 Dose: 12.5 mg Cyclobenzaprine HCl (Flexeril) 10 mg PO TID PRN PRN Reason: MUSCLE SPASMS Dextrose (D50w Syringe) 0 gm IV X1 PRN; Protocol PRN Reason: Hypoglycemia Famotidine (Pepcid) 20 mg PO DAILY [facility] Last Admin: 12/21/17 07:54 Dose: 20 mg Ferrous Sulfate (Ferrous Sulfate) 325 mg PO QHS [facility] Last Admin: 12/20/17 21:33 Dose: 325 mg Gabapentin (Neurontin) 400 mg PO TIDCM [facility] Last Admin: 12/21/17 07:53 Dose: 400 mg Glipizide (Glucotrol) 5 mg PO DAILY@0800 [facility] Last Admin: 12/21/17 07:54 Dose: 5 mg Glucagon () 1 mg IM .X1 PRN PRN Reason: Hypoglycemia Insulin Aspart (Novolog Flexpen (Bkc)) 0 units SC TIDAC [facility] PRN Reason: Protocol Last Admin: 12/21/17 06:49 Dose: Not Given Ketorolac Tromethamine (Toradol) 15 mg IV Q6H PRN PRN PRN Reason: MILD-MOD PAIN (1-5/10) Last Admin: 12/21/17 08:03 Dose: 15 mg Levothyroxine Sodium (Synthroid) 75 mcg PO DAILY@0600 [facility] Last Admin: 12/21/17 06:37 Dose: 75 mcg Loperamide HCl (Imodium) 2 mg PO .Q1-4H PRN PRN Reason: Diarrhea Morphine Sulfate (Morphine) 2 - 4 mg IV Q2H PRN PRN PRN Reason: SEVERE PAIN (6-10/10) Morphine Sulfate (Morphine) 2 - 4 mg IV Q2H PRN PRN PRN Reason: SEVERE PAIN (6-10/10) Nutritional Formula (Lactose Free) (Glucerna Shake) 120 ml PO TIDCM [facility] Last Admin: 12/21/17 07:58 Dose: 120 ml Ondansetron HCl (Zofran) 4 mg IV Q8H PRN PRN PRN Reason: NAUSEA Oxycodone HCl (Oxyir) 5 - 10 mg PO Q4H PRN PRN PRN Reason: MOD-SEVERE PAIN (4-10/10) Last Admin: 12/20/17 14:47 Dose: 10 mg Pantoprazole Sodium (Protonix) 40 mg PO DAILY [facility] Last Admin: 12/21/17 07:54 Dose: 40 mg Potassium [facility] ([facility]) [facility] Admin: 12/21/17 07:54 Dose: 20 meq Promethazine HCl (Phenergan (Ll)) 12.5 mg IM Q6H PRN PRN; Protocol PRN Reason: NAUSEA/VOMITING Senna/Docusate Sodium (Senokot-S, Mariana-Colace) 2 tablet PO BID [facility] Last Admin: 12/21/17 07:53 Dose: 2 tablet Assessment/Plan 1. Status post right hip replacement doing remarkably well so far. Further management per orthopedics 2. Diabetes mellitus type 2 Continue with glipizide and metformin I have added sliding scale insulin 3. DVT prophylaxis Management per orthopedics, patient is on aspirin 325 mg twice daily. 4. leukocytosis: likely reactive +/- intraop decadron Resolved. 5. Acute kidney injury 1.03 on December 04 and now is up to 1.62. Suspect due to volume shifts with surgery but also some of her medications. Her lisinopril as well as Lasix for now. Follow-up in the morning. 6. Disposition Is for the patient to go to snf facility on 12/22. If patient's creatinine is stable or improved but have no medical reason to continue to keep the patient in the hospital beyond then. Code Visit Inpatient E&M: 58313 Subs Hosp L2
--- NOTE | 2017-12-21 10:43 | PN_ITS ---
Subjective: Feels good. No current complaints. Vitals/I&O's: Vital Signs Temp Pulse Resp BP Pulse Ox 37.2 C 78 14 117/67 96 12/21/17 08:13 12/21/17 08:13 12/21/17 08:13 12/21/17 08:13 12/21/17 08:13 Oxygen Delivery Method Room Air Weight: 94.2 kg Body Mass Index (BMI) 34.5 Finger Stick Blood Glucose 171 Intake and Output for Last 24 Hours 12/19/17 12/20/17 12/21/17 23:59 23:59 23:59 Intake Total 3003 / 3003 2938 / 2938 340 / 340 Output Total 3 / 3 500 / 500 400 / 400 Balance 3000 / 3000 2438 / 2438 -60 / -60 General: Alert HEENT: Atraumatic, Normocephalic Oral: Moist Mucosa, No Gingival or Mucosal Lesions/ Ulcerations Neck: No Nodes, Thyroid Normal Size and Texture Lungs: Clear to auscultation, Normal air movement, No rhonchi Cardiovascular: Regular rate, Regular Rhythm, Normal S1, Normal S2 Abdomen: Bowel Sounds Present, Soft, Non Tender, Non-Distended, No Hepato- splenomegaly Extremities: No edema, No Calf Tenderness Musculoskeletal: No Tenderness to Palpation of Joints or Extremities, No Muscle Wasting Psych/Mental Status: Normal Affect, Appropriate Laboratory Results 12/20/17 11:37: POC Glucose 100 12/20/17 16:58: POC Glucose 154 H 12/20/17 23:05: POC Glucose 167 H 12/21/17 06:13: WBC 5.7, RBC 3.64 L, Hgb 11.2 L, Hct 34.8 L, MCV 95.6, MCH 30.8 , MCHC 32.2, RDW 12.7, RDW Differential 42.8, Plt Count 178, MPV 11.0 12/21/17 06:13: Sodium 140, Potassium 5.1, Chloride 106, Carbon Dioxide 24.0, Anion Gap 10, BUN 29 H, Creatinine 1.62 H, Estim Creat Clear Calc 24.92, Est GFR (MDRD) Af Amer 39 L, Est GFR (MDRD) Non-Af 32 L, BUN/Creatinine Ratio 17.9, Glucose 112 H, Calcium 8.2 L 12/21/17 06:34: POC Glucose 132 H Current Medications Acetaminophen (Tylenol) 1,000 mg PO Q8 [facility] Last Admin: 12/21/17 06:38 Dose: 1,000 mg Albuterol Sulfate (Ventolin Aerosols) 2.5 mg INHALATION Q4H PRN PRN Reason: SOB AND/OR WHEEZING Albuterol Sulfate (Ventolin Aerosols) 2.5 mg INHALATION Q6HWA.RT [facility] Last Admin: 12/21/17 07:19 Dose: 2.5 mg Aspirin (Aspirin) 325 mg PO BIDCM [facility] Last Admin: 12/21/17 07:53 Dose: 325 mg Atorvastatin Calcium (Lipitor) 20 mg PO QHS [facility] Last Admin: 12/20/17 21:33 Dose: 20 mg Budesonide (Pulmicort Aerosol) 0.5 mg INHALATION Q12H.RT [facility] Last Admin: 12/21/17 07:19 Dose: 0.5 mg Bupropion HCl (Wellbutrin Sr) 150 mg PO BID [facility] Last Admin: 12/21/17 07:53 Dose: 150 mg Carvedilol (Coreg) 12.5 mg PO BID [facility] Last Admin: 12/21/17 07:54 Dose: 12.5 mg Cyclobenzaprine HCl (Flexeril) 10 mg PO TID PRN PRN Reason: MUSCLE SPASMS Dextrose (D50w Syringe) 0 gm IV X1 PRN; Protocol PRN Reason: Hypoglycemia Famotidine (Pepcid) 20 mg PO DAILY [facility] Last Admin: 12/21/17 07:54 Dose: 20 mg Ferrous Sulfate (Ferrous Sulfate) 325 mg PO QHS [facility] Last Admin: 12/20/17 21:33 Dose: 325 mg Gabapentin (Neurontin) 400 mg PO TIDCM [facility] Last Admin: 12/21/17 07:53 Dose: 400 mg Glipizide (Glucotrol) 5 mg PO DAILY@0800 [facility] Last Admin: 12/21/17 07:54 Dose: 5 mg Glucagon () 1 mg IM .X1 PRN PRN Reason: Hypoglycemia Insulin Aspart (Novolog Flexpen (Bkc)) 0 units SC TIDAC [facility] PRN Reason: Protocol Last Admin: 12/21/17 06:49 Dose: Not Given Ketorolac Tromethamine (Toradol) 15 mg IV Q6H PRN PRN PRN Reason: MILD-MOD PAIN (1-5/10) Last Admin: 12/21/17 08:03 Dose: 15 mg Levothyroxine Sodium (Synthroid) 75 mcg PO DAILY@0600 [facility] Last Admin: 12/21/17 06:37 Dose: 75 mcg Loperamide HCl (Imodium) 2 mg PO .Q1-4H PRN PRN Reason: Diarrhea Morphine Sulfate (Morphine) 2 - 4 mg IV Q2H PRN PRN PRN Reason: SEVERE PAIN (6-10/10) Morphine Sulfate (Morphine) 2 - 4 mg IV Q2H PRN PRN PRN Reason: SEVERE PAIN (6-10/10) Nutritional Formula (Lactose Free) (Glucerna Shake) 120 ml PO TIDCM [facility] Last Admin: 12/21/17 07:58 Dose: 120 ml Ondansetron HCl (Zofran) 4 mg IV Q8H PRN PRN PRN Reason: NAUSEA Oxycodone HCl (Oxyir) 5 - 10 mg PO Q4H PRN PRN PRN Reason: MOD-SEVERE PAIN (4-10/10) Last Admin: 12/20/17 14:47 Dose: 10 mg Pantoprazole Sodium (Protonix) 40 mg PO DAILY [facility] Last Admin: 12/21/17 07:54 Dose: 40 mg Potassium [facility] ([facility]) [facility] Admin: 12/21/17 07:54 Dose: 20 meq Promethazine HCl (Phenergan (Ll)) 12.5 mg IM Q6H PRN PRN; Protocol PRN Reason: NAUSEA/VOMITING Senna/Docusate Sodium (Senokot-S, Mariana-Colace) 2 tablet PO BID [facility] Last Admin: 12/21/17 07:53 Dose: 2 tablet Assessment/Plan 1. Status post right hip replacement * doing remarkably well so far. * Further management per orthopedics 2. Diabetes mellitus type 2 * Continue with glipizide and metformin * I have added sliding scale insulin 3. DVT prophylaxis * Management per orthopedics, patient is on aspirin 325 mg twice daily. 4. leukocytosis: * likely reactive +/- intraop decadron * Resolved. 5. Acute kidney injury * 1.03 on December 04 and now is up to 1.62. * Suspect due to volume shifts with surgery but also some of her medications. Her lisinopril as well as Lasix for now. * Follow-up in the morning. 6. Disposition * Is for the patient to go to assisted facility on 12/22. If patient's creatinine is stable or improved but have no medical reason to continue to keep the patient in the hospital beyond then. Code Visit Inpatient E&M: 77505 Subs Hosp L2
[2017-12-21 11:41] LABS: Bedside Glucose 169 mg/dL (70-110)
[2017-12-21 13:25] VITALS: PULSE 71; RESP 18
[2017-12-21 14:14] VITALS: BP 120/62; PULSE 79; RESP 16; TEMP 36.7; O2SAT 96
[2017-12-21 16:26] LABS: Bedside Glucose 139 mg/dL (70-110)
[2017-12-21 22:10] VITALS: BP 108/46; PULSE 70; RESP 16; TEMP 36.8; O2SAT 96
[2017-12-21] MEDS: Ferrous Sulfate 325 MG Tablet PO (22:23)
[2017-12-21] MEDS: Atorvastatin Calcium 20 MG Tablet PO (22:24)
[2017-12-22 00:41] LABS: Bedside Glucose 199 mg/dL (70-110)
[2017-12-22 03:30] VITALS: BP 114/66; PULSE 70; RESP 18; TEMP 36.6; O2SAT 98
[2017-12-22] MEDS: Acetaminophen 500 MG Tablet 1000 MG PO ×2 (06:45→13:10)
[2017-12-22] MEDS: Levothyroxine 75 MCG Tablet PO (06:45)
[2017-12-22 06:56] LABS: Bedside Glucose 155 mg/dL (70-110)
[2017-12-22 06:59] LABS: Anion Gap 4 (5-15); BUN 28 mg/dL (7-18); BUN/Creat Ratio 20.7 RATIO (10-20); Calcium,Total 8.4 mg/dL (8.5-10.1); Chloride 107 mmol/L (98-107); Creatinine, Serum 1.35 mg/dL (0.55-1.02); EST Glomerular Filtration Rate 40 mL/min (>60); Est Glom Filt Rate - Afr Amer 49 mL/min (>60); Estimated Creatinine Clearance 29.91 ml/min; Glucose 150 mg/dL (74-106); Potassium 4.8 mmol/L (3.5-5.1); Sodium Level 140 mmol/L (136-145)
[2017-12-22 07:03] LABS: Hematocrit 36.8 % (37-47); Hemoglobin 11.6 g/dl (12.0-15.0); Mean Corp Hgb Conc 31.5 g/gl (32-36); Mean Corpuscular Hgb 30.5 pg (27.0-32.0); Mean Corpuscular Volume 96.8 fL (81-99); Platelet Count 195 K/mm3 (150-450); RBC Distribution Width CV 12.7 % (11.6-14.6); RBC Distribution Width SD 42.8 fl (35.1-43.9); White Blood Count 6.2 K/mm3 (4.4-11.0)
[2017-12-22 07:05] LABS: Scan Indicated on CBC? Y/N NO
[2017-12-22 07:17] VITALS: PULSE 72; RESP 16
[2017-12-22] MEDS: Albuterol 2.5 MG/3 ML VIAL.NEB. INHALATION (07:17)
[2017-12-22] MEDS: Budesonide Respules 0.5 MG/2 ML AMPUL.NEB. INHALATION (07:17)
[2017-12-22] MEDS: Pantoprazole Sodium 40 MG Tablet PO (08:43)
[2017-12-22] MEDS: Aspirin 325 MG Tablet PO (08:43)
[2017-12-22] MEDS: Gabapentin 400 MG Capsule PO ×2 (08:43→12:24)
[2017-12-22] MEDS: Carvedilol 12.5 MG Tablet PO (08:43)
[2017-12-22] MEDS: Famotidine 20 MG Tablet PO (08:44)
--- NOTE | 2017-12-22 09:53 | PN.ORTHO_ITS ---
Subjective: The patient was sitting in bedside chair upon examination. Patient denies any chest pain, shortness of breath, dizziness, lightheadedness, nausea or vomiting , or calf pain. Pain is controlled on medications. No adverse overnight events. Patient is doing well and has no complaints. Plan is for discharge to transitional care unit today. Objective: Vital signs stable and afebrile. Patient is able to plantarflex and dorsiflex actively. Sensation is intact to light touch to saphenous, sural, superficial and deep peroneal, and tibial distribution. Dressing is clean dry and intact. Negative Homans bilaterally, negative signs and symptoms of DVT. - Physical Exam General: Alert, Oriented x3, Cooperative, No apparent distress Vital Signs Temp Pulse Resp BP Pulse Ox 97.9 F 72 16 114/66 98 12/22/17 03:30 12/22/17 07:17 12/22/17 07:17 12/22/17 03:30 12/22/17 03:30 Oxygen Delivery Method Room Air Weight: 94.2 kg Body Mass Index (BMI) 34.5 Finger Stick Blood Glucose 171 Intake and Output for Last 24 Hours 12/20/17 12/21/17 12/22/17 23:59 23:59 23:59 Intake Total 2938 / 2938 1240 / 1240 400 / 400 Output Total 500 / 500 400 / 400 Balance 2438 / 2438 840 / 840 400 / 400 Laboratory Tests Past 24 Hrs 12/22/17 12/22/17 06:20 06:20 WBC 6.2 RBC 3.80 L Hgb 11.6 L Hct 36.8 L MCV 96.8 MCH 30.5 MCHC 31.5 L RDW 12.7 RDW Differential 42.8 Plt Count 195 MPV 11.0 Sodium 140 Potassium 4.8 Chloride 107 Carbon Dioxide 29.0 Anion Gap 4 L BUN 28 H Creatinine 1.35 H Estim Creat Clear Calc 29.91 Est GFR (MDRD) Af Amer 49 L Est GFR (MDRD) Non-Af 40 L BUN/Creatinine Ratio 20.7 H Glucose 150 H Calcium 8.4 L POC Glucose 12/22/17 12/22/17 12/21/17 06:48 00:32 16:18 POC Glucose 155 H 199 H 139 H 12/21/17 11:27 POC Glucose 169 H Assessment/Plan 1. S/P right direct anterior total hip arthroplasty POD #3 2. Continue Pain Medications: Tylenol and OxyIR 3. DVT Prophylaxis: Aspirin 325 mg twice daily 4. PT/OT: Weightbearing as tolerated 5. H & H: 11.6/36.8, asymptomatic 6. Leukocytosis: Resolved currently 6.2, afebrile. Patient did receive Decadron intraoperatively 7. Encouraged Incentive Spirometry 8. Disposition: Orthopedically stable, plan will be for discharge to transitional care unit today. Patient will follow-up per postop instructions. Prescriptions are attached to chart.
--- NOTE | 2017-12-22 10:33 | PCM.DC.THR ---
Discharge Diet: 1800 Calorie Control Diet Discharge Activity: May Not Drive - while taking narcotic pain medications. May shower in (days): 1 - Turned dressing away from water Weight Bearing Status: Weight bearing as tolerated Additional Activity Instructions:: Wear elastic stockings for 2 weeks. DO NOT use alcohol with narcotic pain medication. DO NOT make important decisions while taking narcotic medication. If you have problems with taking your medication (rash, itching, nausea, etc.) call the office at once. Call your doctor if your incision/area has: Increased Pain/ Swelling, Increased Redness, Foul Smelling Discharge Call your doctor if you observe: Fever of 101 or Higher Remove Dressing in (days):: 2 - Okay to remove on December 24, 2017 Additional Instructions: Follow [facility] postop instructions Allergies/Adverse Reactions: Allergies codeine Adverse Reaction (Verified 12/04/17 14:05) constipation Medications to take at Discharge Carvedilol [Coreg (Beta Jin)] 12.5 mg PO BID 11/12/13 Gabapentin [Neurontin] 400 mg PO TID 11/12/13 Levothyroxine [Synthroid] 75 mcg PO DAILY 11/12/13 Metformin HCl [Glucophage] 500 mg PO BID 11/12/13 Omeprazole [Prilosec] 40 mg PO DAILY 11/12/13 Simvastatin [Zocor] 40 mg PO QHS 11/12/13 BuPROPion (SR) [Wellbutrin Sr] 150 mg PO BID 10/17/15 ferrous sulfate 325 mg (65 mg iron) tablet 325 mg PO QHS tab 11/02/17 glipizide 5 mg tablet 5 mg PO QDAY 11/02/17 losartan 50 mg tablet 50 mg PO QHS 90 Days #90 tab 11/02/17 budesonide-formoterol HFA 160 mcg-4.5 mcg/actuation aerosol inhaler 2 puff INHALATION BID g 11/06/17 cyclobenzaprine 10 mg tablet 10 mg PO TID PRN 11/06/17 furosemide 20 mg tablet 20 mg PO QDAY 11/06/17 loperamide 2 mg capsule 2 mg PO Q1-4H PRN 11/06/17 Albuterol IH (ProAir) [Proair Hfa] 2 puff INHALATION Q6H PRN PRN 12/04/17 Albuterol Inhaler [Ventolin Hfa] 1 - 2 puff INHALATION BID PRN 12/04/17 Glucerna Shake 120 ml PO DAILY 12/04/17 Potassium Chloride [Klor-Con 10] 20 meq PO DAILY 12/04/17 Acetaminophen [Tylenol] 1,000 mg PO Q8 #14 tablet 12/22/17 Aspirin 325 mg PO BIDCM #14 tablet 12/22/17 Oxycodone [Oxyir] 5 - 10 mg PO Q4H PRN PRN 7 Days #80 tab 12/22/17 The following prescriptions were given: Oxycodone [Oxyir] 5 - 10 mg PO Q4H PRN PRN 7 Days #80 tab PRN Reason: Mod-Severe Pain (-08/14) Primary Care Physician: Bo Husain III, MD [Primary Care Provider] - Please Follow Up With: Bobby Arango PA-C When: 01/02/18 @ 10:30 am
--- NOTE | 2017-12-22 10:40 | DS.PCM_ITS ---
Discharge Date and Diagnosis Date of Admission: 12/19/17 Date of Discharge: 12/22/17 - Primary Discharge Diagnosis Direct right anterior total hip arthroplasty - Secondary Discharge Diagnosis Chronic Problems (Last Reviewed 11/06/17 @ 13:33 by Patrick Duenas MD) CAD (coronary artery disease) (Chronic) PVC's (premature ventricular contractions) (Chronic) Nonischemic cardiomyopathy (Chronic) Non-ST elevation (NSTEMI) myocardial infarction (Chronic) Acute respiratory failure (Chronic) Asthma (Chronic) Nonrheumatic mitral (valve) prolapse (Chronic) Nonrheumatic mitral (valve) insufficiency (Chronic) Asthma exacerbation (Chronic) Elevated troponin (Chronic) Benign hypertension (Chronic) Type 2 diabetes mellitus (Chronic) Gastroesophageal reflux disease (Chronic) Hyperlipidemia (Chronic) Hypothyroidism (Chronic) Osteoarthritis (Chronic) Hx of fracture of hip (Chronic) Chronic pain (Chronic) Respiratory failure (Chronic) Acute respiratory failure (Chronic) Non-STEMI (non-ST elevated myocardial infarction) (Chronic) Cardiomyopathy (Chronic) PVT (paroxysmal ventricular tachycardia) (Chronic) Hospital Course and Treatment Operations: None Summary of Care Provided: Patient is a 82-year-old female who had osteoarthritis with joint space narrowing, osteophyte formation, and subchondral cyst. Patient has had pain for the past 8 months. After failing conservative measures, the patient opted to proceed with a right total hip arthroplasty. The patient underwent the above -stated procedure on the 2017. Patient did receive perioperative antibiotics. Intraoperatively was uneventful. For details please see dictated operative note. The patient was placed in thigh-high teds, bilateral SCDs, remained stable in recovery. Patient was admitted to the 3rd floor at [facility]. The patient's pain was managed with the use of IV and p.o. pain medications. Patient participated in physical therapy. Medicine was consulted for postoperative medical management of comorbidities. Patient was discharged on postoperative day #3 to transitional care unit at [facility]. Patient was given medications stated below. Patient will follow up with [facility] per postop instructions for reassessment. [] Discharge Diet: 1800 Calorie Control Diet Discharge Activity: May Not Drive - while taking narcotic pain medications. May shower in (days): 1 - Turned dressing away from water Weight Bearing Status: Weight bearing as tolerated Additional Activity Instructions:: Wear elastic stockings for 2 weeks. DO NOT use alcohol with narcotic pain medication. DO NOT make important decisions while taking narcotic medication. If you have problems with taking your medication (rash, itching, nausea, etc.) call the office at once. Call your doctor if your incision/area has: Increased Pain/ Swelling, Increased Redness, Foul Smelling Discharge Call your doctor if you observe: Fever of 101 or Higher Remove Dressing in (days):: 2 - Okay to remove on December 24, 2017 Home Medications: Medications to take at Discharge Carvedilol [Coreg (Beta Jin)] 12.5 mg PO BID 11/12/13 Gabapentin [Neurontin] 400 mg PO TID 11/12/13 Levothyroxine [Synthroid] 75 mcg PO DAILY 11/12/13 Metformin HCl [Glucophage] 500 mg PO BID 11/12/13 Omeprazole [Prilosec] 40 mg PO DAILY 11/12/13 Simvastatin [Zocor] 40 mg PO QHS 11/12/13 BuPROPion (SR) [Wellbutrin Sr] 150 mg PO BID 10/17/15 ferrous sulfate 325 mg (65 mg iron) tablet 325 mg PO QHS tab 11/02/17 glipizide 5 mg tablet 5 mg PO QDAY 11/02/17 losartan 50 mg tablet 50 mg PO QHS 90 Days #90 tab 11/02/17 budesonide-formoterol HFA 160 mcg-4.5 mcg/actuation aerosol inhaler 2 puff INHALATION BID g 11/06/17 cyclobenzaprine 10 mg tablet 10 mg PO TID PRN 11/06/17 furosemide 20 mg tablet 20 mg PO QDAY 11/06/17 loperamide 2 mg capsule 2 mg PO Q1-4H PRN 11/06/17 Albuterol IH (ProAir) [Proair Hfa] 2 puff INHALATION Q6H PRN PRN 12/04/17 Albuterol Inhaler [Ventolin Hfa] 1 - 2 puff INHALATION BID PRN 12/04/17 Glucerna Shake 120 ml PO DAILY 12/04/17 Potassium Chloride [Klor-Con 10] 20 meq PO DAILY 12/04/17 Acetaminophen [Tylenol] 1,000 mg PO Q8 #14 tablet 12/22/17 Aspirin 325 mg PO BIDCM #14 tablet 12/22/17 Oxycodone [Oxyir] 5 - 10 mg PO Q4H PRN PRN 7 Days #80 tab 12/22/17 Following Prescrptions Were Given to Patient: Oxycodone [Oxyir] 5 - 10 mg PO Q4H PRN PRN 7 Days #80 tab PRN Reason: Mod-Severe Pain (-08/14) Primary Care Physician: Bo Husain III, MD [Primary Care Provider] - Please Follow Up With: Bobby Arango PA-C When: 01/02/18 @ 10:30 am Additional Instructions: Follow [facility] postop instructions Meaningful Use Info Meaningful Use Diagnoses (Choose all that apply): None applicable
--- NOTE | 2017-12-22 11:00 | PCM.PN.HOSP ---
Subjective: Patient is an 82-year-old female with a past history of hypertension, diabetes, hypothyroidism, GERD and CAD who was admitted with osteoarthritis and is status post right total hip arthroplasty on 12/19/17. Today's postop day 3.. Post op period was complicated by AK I which has resolved. She has remained stable. Seen and examined today. She has no complaints and feels well. She denies any fever or chills, any cough or chest pain, any abdominal pain, any diarrhea vomiting. Pain is well controlled. Review of systems otherwise negative. Vitals/I&O's: Vital Signs Temp Pulse Resp BP Pulse Ox 97.9 F 72 16 114/66 98 12/22/17 03:30 12/22/17 07:17 12/22/17 07:17 12/22/17 03:30 12/22/17 03:30 Oxygen Delivery Method Room Air Weight: 207 lb 10.807 oz Body Mass Index (BMI) 34.5 Finger Stick Blood Glucose 171 Intake and Output for Last 24 Hours 12/20/17 12/21/17 12/22/17 23:59 23:59 23:59 Intake Total 2938 / 2938 1240 / 1240 400 / 400 Output Total 500 / 500 400 / 400 Balance 2438 / 2438 840 / 840 400 / 400 General: Alert, Oriented x3, Cooperative HEENT: Atraumatic, PERRLA, EOMI, Normocephalic Oral: Moist Mucosa Neck: Supple, No JVD, Negative Carotid Bruits Lungs: Clear to auscultation, Normal air movement, No rhonchi, No wheeze, No rales Cardiovascular: Regular rate, Regular Rhythm, Normal S1, Normal S2, No murmurs Abdomen: Bowel Sounds Present, Soft, Non Tender, Non-Distended, No Hepato-splenomegaly Extremities: No clubbing, No cyanosis, No edema, Capillary Refill Less than 3 Seconds Skin: No rashes, No breakdown Musculoskeletal: No Tenderness to Palpation of Joints or Extremities Lymphatic: No Cervical, Supraclavicular, or Inguinal Adenopathy Neurological: Cranial nerves II-XII grossly intact Psych/Mental Status: Normal Affect, Alert and oriented to time, place, person, mood and affect Laboratory Results 12/21/17 11:27: POC Glucose 169 H 12/21/17 16:18: POC Glucose 139 H 12/22/17 00:32: POC Glucose 199 H 12/22/17 06:20: WBC 6.2, RBC 3.80 L, Hgb 11.6 L, Hct 36.8 L, MCV 96.8, MCH 30.5, MCHC 31.5 L, RDW 12.7, RDW Differential 42.8, Plt Count 195, MPV 11.0 12/22/17 06:20: Sodium 140, Potassium 4.8, Chloride 107, Carbon Dioxide 29.0, Anion Gap 4 L, BUN 28 H, Creatinine 1.35 H, Estim Creat Clear Calc 29.91, Est GFR (MDRD) Af Amer 49 L, Est GFR (MDRD) Non-Af 40 L, BUN/Creatinine Ratio 20.7 H, Glucose 150 H, Calcium 8.4 L 12/22/17 06:48: POC Glucose 155 H Current Medications Acetaminophen (Tylenol) 1,000 mg PO Q8 [facility] Last Admin: 12/22/17 06:45 Dose: 1,000 mg Albuterol Sulfate (Ventolin Aerosols) 2.5 mg INHALATION Q4H PRN PRN Reason: SOB AND/OR WHEEZING Albuterol Sulfate (Ventolin Aerosols) 2.5 mg INHALATION Q6HWA.RT [facility] Last Admin: 12/22/17 07:17 Dose: 2.5 mg Aspirin (Aspirin) 325 mg PO BIDCM [facility] Last Admin: 12/22/17 08:43 Dose: 325 mg Atorvastatin Calcium (Lipitor) 20 mg PO QHS [facility] Last Admin: 12/21/17 22:24 Dose: 20 mg Budesonide (Pulmicort Aerosol) 0.5 mg INHALATION Q12H.RT [facility] Last Admin: 12/22/17 07:17 Dose: 0.5 mg Bupropion HCl (Wellbutrin Sr) 150 mg PO BID [facility] Last Admin: 12/22/17 08:43 Dose: 150 mg Carvedilol (Coreg) 12.5 mg PO BID [facility] Last Admin: 12/22/17 08:43 Dose: 12.5 mg Cyclobenzaprine HCl (Flexeril) 10 mg PO TID PRN PRN Reason: MUSCLE SPASMS Dextrose (D50w Syringe) 0 gm IV X1 PRN; Protocol PRN Reason: Hypoglycemia Famotidine (Pepcid) 20 mg PO DAILY [facility] Last Admin: 12/22/17 08:44 Dose: 20 mg Ferrous Sulfate (Ferrous Sulfate) 325 mg PO QHS [facility] Last Admin: 12/21/17 22:23 Dose: 325 mg Gabapentin (Neurontin) 400 mg PO TIDCM [facility] Last Admin: 12/22/17 08:43 Dose: 400 mg Glipizide (Glucotrol) 5 mg PO DAILY@0800 [facility] Last Admin: 12/22/17 08:43 Dose: 5 mg Glucagon () 1 mg IM .X1 PRN PRN Reason: Hypoglycemia Insulin Aspart (Novolog Flexpen (Bkc)) 0 units SC TIDAC [facility] PRN Reason: Protocol Last Admin: 12/22/17 06:49 Dose: 1 u Ketorolac Tromethamine (Toradol) 15 mg IV Q6H PRN PRN PRN Reason: MILD-MOD PAIN (1-5/10) Last Admin: 12/21/17 08:03 Dose: 15 mg Levothyroxine Sodium (Synthroid) 75 mcg PO DAILY@0600 [facility] Last Admin: 12/22/17 06:45 Dose: 75 mcg Loperamide HCl (Imodium) 2 mg PO .Q1-4H PRN PRN Reason: Diarrhea Morphine Sulfate (Morphine) 2 - 4 mg IV Q2H PRN PRN PRN Reason: SEVERE PAIN (6-10/10) Morphine Sulfate (Morphine) 2 - 4 mg IV Q2H PRN PRN PRN Reason: SEVERE PAIN (6-10/10) Nutritional Formula (Lactose Free) (Glucerna Shake) 120 ml PO TIDCM [facility] Last Admin: 12/22/17 08:43 Dose: Not Given Ondansetron HCl (Zofran) 4 mg IV Q8H PRN PRN PRN Reason: NAUSEA Oxycodone HCl (Oxyir) 5 - 10 mg PO Q4H PRN PRN PRN Reason: MOD-SEVERE PAIN (4-10/10) Last Admin: 12/20/17 14:47 Dose: 10 mg Pantoprazole Sodium (Protonix) 40 mg PO DAILY [facility] Last Admin: 12/22/17 08:43 Dose: 40 mg Potassium [facility] ([facility]) [facility] Last Admin: 12/22/17 08:43 Dose: 20 meq Promethazine HCl (Phenergan (Ll)) 12.5 mg IM Q6H PRN PRN; Protocol PRN Reason: NAUSEA/VOMITING Senna/Docusate Sodium (Senokot-S, [place]-Colace) 2 tablet PO BID [facility] Last Admin: 12/22/17 08:42 Dose: Not Given Assessment/Plan 1. Osteoarthritis status post right hip replacement Postop day 3. Has remained stable. Has no complaints today. Orthopedics on Board. Has been discharged today by orthopedics to rehab unit. 2. Diabetes On insulin sliding scale and home glipizide and metformin. . 3. Acute kidney injury. resolving Cr Trended up to 1.62 from 1.03. Creatinine is now down to 1.35. lisinopril and Lasix on hold. Will monitor. lisinopril switched to losartan 4. DVT prophylaxis: Per orthopedics on aspirin 325 mg twice daily. Disposition: For discharge to rehab unit today. This note was generated with [employer] dictation software. It may contain incorrect words, spelling, and punctuation that were not noted in checking the note before signing. Code Visit Inpatient E&M: 43432 Subs Hosp L2
--- NOTE | 2017-12-22 11:07 | PN_ITS ---
Subjective: Patient is an 82-year-old female with a past history of hypertension, diabetes, hypothyroidism, GERD and CAD who was admitted with osteoarthritis and is status post right total hip arthroplasty on 12/19/17. Today's postop day 3.. Post op period was complicated by AK I which has resolved. She has remained stable. Seen and examined today. She has no complaints and feels well. She denies any fever or chills, any cough or chest pain, any abdominal pain, any diarrhea vomiting. Pain is well controlled. Review of systems otherwise negative. Vitals/I&O's: Vital Signs Temp Pulse Resp BP Pulse Ox 97.9 F 72 16 114/66 98 12/22/17 03:30 12/22/17 07:17 12/22/17 07:17 12/22/17 03:30 12/22/17 03:30 Oxygen Delivery Method Room Air Weight: 207 lb 10.807 oz Body Mass Index (BMI) 34.5 Finger Stick Blood Glucose 171 Intake and Output for Last 24 Hours 12/20/17 12/21/17 12/22/17 23:59 23:59 23:59 Intake Total 2938 / 2938 1240 / 1240 400 / 400 Output Total 500 / 500 400 / 400 Balance 2438 / 2438 840 / 840 400 / 400 General: Alert, Oriented x3, Cooperative HEENT: Atraumatic, PERRLA, EOMI, Normocephalic Oral: Moist Mucosa Neck: Supple, No JVD, Negative Carotid Bruits Lungs: Clear to auscultation, Normal air movement, No rhonchi, No wheeze, No rales Cardiovascular: Regular rate, Regular Rhythm, Normal S1, Normal S2, No murmurs Abdomen: Bowel Sounds Present, Soft, Non Tender, Non-Distended, No Hepato- splenomegaly Extremities: No clubbing, No cyanosis, No edema, Capillary Refill Less than 3 Seconds Skin: No rashes, No breakdown Musculoskeletal: No Tenderness to Palpation of Joints or Extremities Lymphatic: No Cervical, Supraclavicular, or Inguinal Adenopathy Neurological: Cranial nerves II-XII grossly intact Psych/Mental Status: Normal Affect, Alert and oriented to time, place, person, mood and affect Laboratory Results 12/21/17 11:27: POC Glucose 169 H 12/21/17 16:18: POC Glucose 139 H 12/22/17 00:32: POC Glucose 199 H 12/22/17 06:20: WBC 6.2, RBC 3.80 L, Hgb 11.6 L, Hct 36.8 L, MCV 96.8, MCH 30.5 , MCHC 31.5 L, RDW 12.7, RDW Differential 42.8, Plt Count 195, MPV 11.0 12/22/17 06:20: Sodium 140, Potassium 4.8, Chloride 107, Carbon Dioxide 29.0, Anion Gap 4 L, BUN 28 H, Creatinine 1.35 H, Estim Creat Clear Calc 29.91, Est GFR (MDRD) Af Amer 49 L, Est GFR (MDRD) Non-Af 40 L, BUN/Creatinine Ratio 20.7 H , Glucose 150 H, Calcium 8.4 L 12/22/17 06:48: POC Glucose 155 H Current Medications Acetaminophen (Tylenol) 1,000 mg PO Q8 [facility] Last Admin: 12/22/17 06:45 Dose: 1,000 mg Albuterol Sulfate (Ventolin Aerosols) 2.5 mg INHALATION Q4H PRN PRN Reason: SOB AND/OR WHEEZING Albuterol Sulfate (Ventolin Aerosols) 2.5 mg INHALATION Q6HWA.RT [facility] Last Admin: 12/22/17 07:17 Dose: 2.5 mg Aspirin (Aspirin) 325 mg PO BIDCM [facility] Last Admin: 12/22/17 08:43 Dose: 325 mg Atorvastatin Calcium (Lipitor) 20 mg PO QHS [facility] Last Admin: 12/21/17 22:24 Dose: 20 mg Budesonide (Pulmicort Aerosol) 0.5 mg INHALATION Q12H.RT [facility] Last Admin: 12/22/17 07:17 Dose: 0.5 mg Bupropion HCl (Wellbutrin Sr) 150 mg PO BID [facility] Last Admin: 12/22/17 08:43 Dose: 150 mg Carvedilol (Coreg) 12.5 mg PO BID [facility] Last Admin: 12/22/17 08:43 Dose: 12.5 mg Cyclobenzaprine HCl (Flexeril) 10 mg PO TID PRN PRN Reason: MUSCLE SPASMS Dextrose (D50w Syringe) 0 gm IV X1 PRN; Protocol PRN Reason: Hypoglycemia Famotidine (Pepcid) 20 mg PO DAILY [facility] Last Admin: 12/22/17 08:44 Dose: 20 mg Ferrous Sulfate (Ferrous Sulfate) 325 mg PO QHS [facility] Last Admin: 12/21/17 22:23 Dose: 325 mg Gabapentin (Neurontin) 400 mg PO TIDCM [facility] Last Admin: 12/22/17 08:43 Dose: 400 mg Glipizide (Glucotrol) 5 mg PO DAILY@0800 [facility] Last Admin: 12/22/17 08:43 Dose: 5 mg Glucagon () 1 mg IM .X1 PRN PRN Reason: Hypoglycemia Insulin Aspart (Novolog Flexpen (Bkc)) 0 units SC TIDAC [facility] PRN Reason: Protocol Last Admin: 12/22/17 06:49 Dose: 1 u Ketorolac Tromethamine (Toradol) 15 mg IV Q6H PRN PRN PRN Reason: MILD-MOD PAIN (1-5/10) Last Admin: 12/21/17 08:03 Dose: 15 mg Levothyroxine Sodium (Synthroid) 75 mcg PO DAILY@0600 [facility] Last Admin: 12/22/17 06:45 Dose: 75 mcg Loperamide HCl (Imodium) 2 mg PO .Q1-4H PRN PRN Reason: Diarrhea Morphine Sulfate (Morphine) 2 - 4 mg IV Q2H PRN PRN PRN Reason: SEVERE PAIN (6-10/10) Morphine Sulfate (Morphine) 2 - 4 mg IV Q2H PRN PRN PRN Reason: SEVERE PAIN (6-10/10) Nutritional Formula (Lactose Free) (Glucerna Shake) 120 ml PO TIDCM [facility] Last Admin: 12/22/17 08:43 Dose: Not Given Ondansetron HCl (Zofran) 4 mg IV Q8H PRN PRN PRN Reason: NAUSEA Oxycodone HCl (Oxyir) 5 - 10 mg PO Q4H PRN PRN PRN Reason: MOD-SEVERE PAIN (4-10/10) Last Admin: 12/20/17 14:47 Dose: 10 mg Pantoprazole Sodium (Protonix) 40 mg PO DAILY [facility] Last Admin: 12/22/17 08:43 Dose: 40 mg Potassium [facility]lor[facility] ([facility]-Dur) [facility] Last Admin: 12/22/17 08:43 Dose: 20 meq Promethazine HCl (Phenergan (Ll)) 12.5 mg IM Q6H PRN PRN; Protocol PRN Reason: NAUSEA/VOMITING Senna/Docusate Sodium (Senokot-S, Amriana-Colace) 2 tablet PO BID [facility] Last Admin: 12/22/17 08:42 Dose: Not Given Assessment/Plan 1. Osteoarthritis status post right hip replacement * Postop day 3. Has remained stable. Has no complaints today. * Orthopedics on Board. Has been discharged today by orthopedics to rehab unit. * * 2. Diabetes * On insulin sliding scale and home glipizide and metformin. * . * 3. Acute kidney injury. * resolving * Cr Trended up to 1.62 from 1.03. Creatinine is now down to 1.35. * lisinopril and Lasix on hold. Will monitor. lisinopril switched to losartan * 4. DVT prophylaxis: Per orthopedics on aspirin 325 mg twice daily. Disposition: For discharge to rehab unit today. This note was generated with [employer] dictation software. It may contain incorrect words, spelling, and punctuation that were not noted in checking the note before signing. Code Visit Inpatient E&M: 44530 Subs Hosp L2
[2017-12-22 11:50] LABS: Bedside Glucose 197 mg/dL (70-110)
[2017-12-22] MEDS: Glucerna Shake 120 ML LIQUID PO (12:24)
--- NOTE | 2017-12-22 13:22 | NURSING ---
VERBAL REPORT GIVEN TO AB ferro AT [facility]
== END 2017-12-22 13:39 | disposition skilled nursing facility (03) | DRG 470 ==
PROVIDERS: Anesthesiology; Admitting Provider Specialist; Family Provider Family Medicine; PCP Family Medicine; Visit Provider Student in an Organized Health Care Education/Training Program
PROC: 0SR904A Replacement of Right Hip Joint with Ceramic on Polyethylene Synthetic Substitute, Uncemented, Open Approach (ICD-10-PCS; CPT 27284; principal; 2017-12-19 07:50)
DX: M16.11 Unilateral primary osteoarthritis, right hip (principal); N17.9 Acute kidney failure, unspecified; E11.22 Type 2 diabetes mellitus with diabetic chronic kidney disease; I42.9 Cardiomyopathy, unspecified; N18.3 Chronic kidney disease, stage 3 (moderate); Z79.899 Other long term (current) drug therapy; Z79.84 Long term (current) use of oral hypoglycemic drugs; I12.9 Hypertensive chronic kidney disease with stage 1 through stage 4 chronic kidney disease, or unspecified chronic kidney disease; K21.9 Gastro-esophageal reflux disease without esophagitis; I25.10 Atherosclerotic heart disease of native coronary artery without angina pectoris; E03.9 Hypothyroidism, unspecified; J45.909 Unspecified asthma, uncomplicated; Z96.642 Presence of left artificial hip joint; I25.2 Old myocardial infarction; E78.00 Pure hypercholesterolemia, unspecified
CPT/HCPCS: 36415; 73501; 73502; 76000; 80048; 82962; 83036; 84443; 85025; 85027; 85610; 85730; 87081; 93005; 94640; 97110; 97116; 97162; 97166; 97530; 97535; 99251; J7120; G0463

== ENCOUNTER 2017-12-22 13:45 | Inpatient (IN) | payer MEDICARE, OTHER, SELFPAY ==
[2017-12-22 13:56] VITALS: BP 129/73; PULSE 74; RESP 16; TEMP 36.6; O2SAT 99
--- NOTE | 2017-12-22 13:56 | NURSING ---
PT ARRIVED FROM [facility] VIA BED
[2017-12-22 14:40] VITALS: BMI 32.1
[2017-12-22 15:05] VITALS: BMI 32.1
[2017-12-22 16:00] VITALS: BP 112/60; PULSE 70; RESP 22; TEMP 36.6; O2SAT 96
[2017-12-22] MEDS: Aspirin 325 MG Tablet PO (17:10)
[2017-12-22] MEDS: Carvedilol 12.5 MG Tablet PO (17:10)
[2017-12-22] MEDS: oxyCODONE 5 MG Tablet PO (17:53)
[2017-12-22 18:51] VITALS: O2SAT 97
[2017-12-22] MEDS: Acetaminophen 500 MG Tablet 1000 MG PO (20:57)
[2017-12-22] MEDS: Losartan Potassium 50 MG Tablet PO (20:57)
[2017-12-22] MEDS: Ferrous Sulfate 325 MG Tablet PO (20:57)
[2017-12-22] MEDS: Gabapentin 400 MG Capsule PO (20:57)
[2017-12-22] MEDS: Atorvastatin Calcium 20 MG Tablet PO (20:57)
--- NOTE | 2017-12-22 21:09 | PCM.HP.STD ---
Problem List (1) Osteoarthritis of right hip Status: Chronic (2) Diabetes mellitus Status: Chronic (3) Hypertension Status: Chronic (4) Neuropathic pain Status: Chronic (5) Depression Status: Chronic (6) Iron deficiency anemia Status: Chronic (7) Ischemic cardiomyopathy Status: Chronic (8) Asthma Status: Chronic (9) Gastroesophageal reflux disease Status: Chronic (10) Hyperlipidemia Status: Chronic Qualifiers: (11) Hypothyroidism Status: Chronic History of Present Illness Date of Admission: 12/22/17 Chief Complaint: Here for rehabilitation, strengthening, prior to discharge home alone. The patient is a 82 year old Female with below past medical history hospitalized for right direct total hip replacement 12/19/[address] Maya. Postoperative course complicated by acute kidney injury which resolved. 12/22/2017 Admit to TCU for rehabilitation, strengthening, prior to discharge home alone. Past Medical History Past Medical History (Chronic Problems): Chronic Problems (Last Reviewed 11/06/17 @ 13:33 by Patrick Duenas MD) CAD (coronary artery disease) (Chronic) Osteoarthritis of right hip (Chronic) Diabetes mellitus (Chronic) Hypertension (Chronic) Neuropathic pain (Chronic) Depression (Chronic) Iron deficiency anemia (Chronic) Ischemic cardiomyopathy (Chronic) PVC's (premature ventricular contractions) (Chronic) Nonischemic cardiomyopathy (Chronic) Non-ST elevation (NSTEMI) myocardial infarction (Chronic) Acute respiratory failure (Chronic) Asthma (Chronic) Nonrheumatic mitral (valve) prolapse (Chronic) Nonrheumatic mitral (valve) insufficiency (Chronic) Asthma exacerbation (Chronic) Elevated troponin (Chronic) Benign hypertension (Chronic) Type 2 diabetes mellitus (Chronic) Gastroesophageal reflux disease (Chronic) Hyperlipidemia (Chronic) Hypothyroidism (Chronic) Osteoarthritis (Chronic) Hx of fracture of hip (Chronic) Chronic pain (Chronic) Respiratory failure (Chronic) Acute respiratory failure (Chronic) Non-STEMI (non-ST elevated myocardial infarction) (Chronic) Cardiomyopathy (Chronic) PVT (paroxysmal ventricular tachycardia) (Chronic) Allergies codeine Adverse Reaction (Verified 12/04/17 14:05) constipation Home Medications: Ambulatory Orders Medication Instructions Recorded Carvedilol [Coreg (Beta Jin)] 12.5 mg PO BID 11/12/13 Gabapentin [Neurontin] 400 mg PO TID 11/12/13 Levothyroxine [Synthroid] 75 mcg PO DAILY 11/12/13 Metformin HCl [Glucophage] 500 mg PO BID 11/12/13 Omeprazole [Prilosec] 40 mg PO DAILY 11/12/13 Simvastatin [Zocor] 40 mg PO QHS 11/12/13 BuPROPion (SR) [Wellbutrin Sr] 150 mg PO BID 10/17/15 ferrous sulfate 325 mg (65 mg 325 mg PO QHS tab 11/02/17 iron) tablet glipizide 5 mg tablet 5 mg PO QDAY 11/02/17 losartan 50 mg tablet 50 mg PO QHS 90 Days #90 tab 11/02/17 budesonide-formoterol HFA 160 2 puff INHALATION BID g 11/06/17 mcg-4.5 mcg/actuation aerosol inhaler cyclobenzaprine 10 mg tablet 10 mg PO TID PRN 11/06/17 furosemide 20 mg tablet 20 mg PO QDAY 11/06/17 loperamide 2 mg capsule 2 mg PO Q1-4H PRN 11/06/17 Albuterol IH (ProAir) [Proair Hfa] 2 puff INHALATION Q6H PRN PRN 12/04/17 Albuterol Inhaler [Ventolin Hfa] 1 - 2 puff INHALATION BID PRN 12/04/17 Glucerna Shake 120 ml PO DAILY 12/04/17 Potassium Chloride [Klor-Con 10] 20 meq PO DAILY 12/04/17 Acetaminophen [Tylenol] 1,000 mg PO Q8 12/22/17 Aspirin 325 mg PO BIDCM 12/22/17 Oxycodone [Oxyir] 5 - 10 mg PO Q4H PRN PRN 7 Days 12/22/17 #80 tab Surgical History: cataract, total hip arthroplasty - Left hip hemiarthroplasty, Right total hip arthroplasty., total knee arthroplasty - Right., - - Bilateral bunionectomy, right ring finger, back, microdiskectomy. Psychiatric History: Depression C[employer] History: No pertinent [employer]ATOR [employer] history Lives: Alone Smoking Status: Never smoker Tobacco Use: Non-smoker Alcohol: None Drugs: None - *Family History Maternal History Items: No pertinent history, - - no Heart disease Paternal History Items: No pertinent history Review of Systems Constitutional: Denies: Chills, Fever, Weight Change HEENT: Denies: Head Aches, Sinus Congestion, Sinus Drainage Cardiovascular: Denies: Chest Pain, Palpitations Respiratory: Denies: Cough, Shortness of breath at rest, Sputum production Gastrointestinal: Denies: Abdominal Pain, Nausea, Vomiting Genitourinary: Denies: Dysuria Musculoskeletal: Denies: Joint Pain, Joint Tenderness Skin: Denies: Rash, Wounds Neurological: Denies: Numbness, Tingling, Focal weakness Psychiatric: Denies: Anxiety, Depression, Homicidal Ideations, Suicidal Ideations Hematologic/ Lymphatic: Denies: Easy Bruising, Easy Bleeding VTE Information - Inpt Only VTE Present on Admission: No VTE Mechan Device Prophylaxis: Knee High CAMPBELL Hose VTE Pharm Prophylaxis ordered?: Yes - Physical Exam General: Alert, Oriented x3, Cooperative HEENT: Atraumatic, PERRLA, EOMI, Normocephalic Neck: Supple, No JVD, Negative Carotid Bruits Lungs: Clear to auscultation, Normal air movement Cardiovascular: Regular rate, No murmurs Abdomen: Bowel Sounds Present, Soft, Non Tender Extremities: No edema, Capillary Refill Less than 3 Seconds Skin: No rashes, No breakdown, Incision - Right hip clean, dry, intact. Musculoskeletal: No Tenderness to Palpation of Joints or Extremities Neurological: Cranial nerves II-XII grossly intact Psych/Mental Status: Normal Affect, Appropriate Vital Signs Temp Pulse Resp BP Pulse Ox 97.8 F 70 22 H 112/60 97 12/22/17 16:00 12/22/17 16:00 12/22/17 16:00 12/22/17 16:00 12/22/17 18:51 Oxygen Delivery Method Room Air Weight: 88.9 kg Body Mass Index (BMI) 32.1 Finger Stick Blood Glucose 171 Intake and Output for Last 24 Hours 12/20/17 12/21/17 12/22/17 23:59 23:59 23:59 Intake Total 120 / 120 Balance 120 / 120 Assessment/Plan 82 year old female with below past medical history hospitalized for right direct total hip arthroplasty 12/19/[address] Maya, admitted to TCU for rehabilitation, strengthening, prior to discharge home alone. Debility - PT/OT. Pain - Tylenol 1000MG Q8H, Oxycodone 5-10MG Q4H PRN moderate to severe pain. Bowel - Loperamide 2MG Q1H PRN, order X-ray of abdomen to evaluate for overflow diarrhea. Pneumonia vaccination - Administer Prevnar 13 and/or Pneumovax 23 as necessary. DVT prophylaxis - Aspirin 325MG BID. COPD - Advair 250/50 1 puff BID, Proair MDI 2 puffs Q6H PRN. Hyperlipidemia - Atorvastatin 20MG QHS. Depression - Bupropion 150MG BID. Ischemic cardiomyopathy - Coreg 12.5MG BID, Losartan 50MG QHS. Muscle spasm - Flexeril 10MG TID PRN. Iron deficiency anemia - Ferrex 150MG daily. Edema - Lasix 20MG daily. Neuropathic pain - Gabapentin 400MG TID. Diabetes Mellitus II - Metformin 500MG BID, Glipizide 5MG daily. Nutrition - Glucerna 120ML daily. Hypothyroidism - Levothyroxine 75MCG daily. GERD - Pantoprazole 40MG daily Hypokalemia - K-Dur 20MEQ daily.
--- NOTE | 2017-12-22 21:22 | HP.PCM_ITS ---
Problem List (1) Osteoarthritis of right hip Status: Chronic (2) Diabetes mellitus Status: Chronic (3) Hypertension Status: Chronic (4) Neuropathic pain Status: Chronic (5) Depression Status: Chronic (6) Iron deficiency anemia Status: Chronic (7) Ischemic cardiomyopathy Status: Chronic (8) Asthma Status: Chronic (9) Gastroesophageal reflux disease Status: Chronic (10) Hyperlipidemia Status: Chronic Qualifiers: (11) Hypothyroidism Status: Chronic History of Present Illness Date of Admission: 12/22/17 Chief Complaint: Here for rehabilitation, strengthening, prior to discharge home alone. The patient is a 82 year old Female with below past medical history hospitalized for right direct total hip replacement 12/19/[address] Maya. Postoperative course complicated by acute kidney injury which resolved. 12/22/2017 Admit to TCU for rehabilitation, strengthening, prior to discharge home alone. Past Medical History Past Medical History (Chronic Problems): Chronic Problems (Last Reviewed 11/06/17 @ 13:33 by Patrick Duenas MD) CAD (coronary artery disease) (Chronic) Osteoarthritis of right hip (Chronic) Diabetes mellitus (Chronic) Hypertension (Chronic) Neuropathic pain (Chronic) Depression (Chronic) Iron deficiency anemia (Chronic) Ischemic cardiomyopathy (Chronic) PVC's (premature ventricular contractions) (Chronic) Nonischemic cardiomyopathy (Chronic) Non-ST elevation (NSTEMI) myocardial infarction (Chronic) Acute respiratory failure (Chronic) Asthma (Chronic) Nonrheumatic mitral (valve) prolapse (Chronic) Nonrheumatic mitral (valve) insufficiency (Chronic) Asthma exacerbation (Chronic) Elevated troponin (Chronic) Benign hypertension (Chronic) Type 2 diabetes mellitus (Chronic) Gastroesophageal reflux disease (Chronic) Hyperlipidemia (Chronic) Hypothyroidism (Chronic) Osteoarthritis (Chronic) Hx of fracture of hip (Chronic) Chronic pain (Chronic) Respiratory failure (Chronic) Acute respiratory failure (Chronic) Non-STEMI (non-ST elevated myocardial infarction) (Chronic) Cardiomyopathy (Chronic) PVT (paroxysmal ventricular tachycardia) (Chronic) Allergies codeine Adverse Reaction (Verified 12/04/17 14:05) constipation Home Medications: Ambulatory Orders Medication Instructions Recorded Carvedilol [Coreg (Beta Jin)] 12.5 mg PO BID 11/12/13 Gabapentin [Neurontin] 400 mg PO TID 11/12/13 Levothyroxine [Synthroid] 75 mcg PO DAILY 11/12/13 Metformin HCl [Glucophage] 500 mg PO BID 11/12/13 Omeprazole [Prilosec] 40 mg PO DAILY 11/12/13 Simvastatin [Zocor] 40 mg PO QHS 11/12/13 BuPROPion (SR) [Wellbutrin Sr] 150 mg PO BID 10/17/15 ferrous sulfate 325 mg (65 mg 325 mg PO QHS tab 11/02/17 iron) tablet glipizide 5 mg tablet 5 mg PO QDAY 11/02/17 losartan 50 mg tablet 50 mg PO QHS 90 Days #90 tab 11/02/17 budesonide-formoterol HFA 160 2 puff INHALATION BID g 11/06/17 mcg-4.5 mcg/actuation aerosol inhaler cyclobenzaprine 10 mg tablet 10 mg PO TID PRN 11/06/17 furosemide 20 mg tablet 20 mg PO QDAY 11/06/17 loperamide 2 mg capsule 2 mg PO Q1-4H PRN 11/06/17 Albuterol IH (ProAir) [Proair Hfa] 2 puff INHALATION Q6H PRN PRN 12/04/17 Albuterol Inhaler [Ventolin Hfa] 1 - 2 puff INHALATION BID PRN 12/04/17 Glucerna Shake 120 ml PO DAILY 12/04/17 Potassium Chloride [Klor-Con 10] 20 meq PO DAILY 12/04/17 Acetaminophen [Tylenol] 1,000 mg PO Q8 12/22/17 Aspirin 325 mg PO BIDCM 12/22/17 Oxycodone [Oxyir] 5 - 10 mg PO Q4H PRN PRN 7 Days 12/22/17 #80 tab Surgical History: cataract, total hip arthroplasty - Left hip hemiarthroplasty, Right total hip arthroplasty., total knee arthroplasty - Right., - - Bilateral bunionectomy, right ring finger, back, microdiskectomy. 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 Lives: Alone Smoking Status: Never smoker Tobacco Use: Non-smoker Alcohol: None Drugs: None - *Family History Maternal History Items: No pertinent history, - - no Heart disease Paternal History Items: No pertinent history Review of Systems Constitutional: Denies: Chills, Fever, Weight Change HEENT: Denies: Head Aches, Sinus Congestion, Sinus Drainage Cardiovascular: Denies: Chest Pain, Palpitations Respiratory: Denies: Cough, Shortness of breath at rest, Sputum production Gastrointestinal: Denies: Abdominal Pain, Nausea, Vomiting Genitourinary: Denies: Dysuria Musculoskeletal: Denies: Joint Pain, Joint Tenderness Skin: Denies: Rash, Wounds Neurological: Denies: Numbness, Tingling, Focal weakness Psychiatric: Denies: Anxiety, Depression, Homicidal Ideations, Suicidal Ideations Hematologic/ Lymphatic: Denies: Easy Bruising, Easy Bleeding VTE Information - Inpt Only VTE Present on Admission: No VTE Mechan Device Prophylaxis: Knee High CAMPBELL Hose VTE Pharm Prophylaxis ordered?: Yes - Physical Exam General: Alert, Oriented x3, Cooperative HEENT: Atraumatic, PERRLA, EOMI, Normocephalic Neck: Supple, No JVD, Negative Carotid Bruits Lungs: Clear to auscultation, Normal air movement Cardiovascular: Regular rate, No murmurs Abdomen: Bowel Sounds Present, Soft, Non Tender Extremities: No edema, Capillary Refill Less than 3 Seconds Skin: No rashes, No breakdown, Incision - Right hip clean, dry, intact. Musculoskeletal: No Tenderness to Palpation of Joints or Extremities Neurological: Cranial nerves II-XII grossly intact Psych/Mental Status: Normal Affect, Appropriate Vital Signs Temp Pulse Resp BP Pulse Ox 97.8 F 70 22 H 112/60 97 12/22/17 16:00 12/22/17 16:00 12/22/17 16:00 12/22/17 16:00 12/22/17 18:51 Oxygen Delivery Method Room Air Weight: 88.9 kg Body Mass Index (BMI) 32.1 Finger Stick Blood Glucose 171 Intake and Output for Last 24 Hours 12/20/17 12/21/17 12/22/17 23:59 23:59 23:59 Intake Total 120 / 120 Balance 120 / 120 Assessment/Plan 82 year old female with below past medical history hospitalized for right direct total hip arthroplasty 12/19/[address] Maya, admitted to TCU for rehabilitation, strengthening, prior to discharge home alone. * Debility - PT/OT. * Pain - Tylenol 1000MG Q8H, Oxycodone 5-10MG Q4H PRN moderate to severe pain. * Bowel - Loperamide 2MG Q1H PRN, order X-ray of abdomen to evaluate for overflow diarrhea. * Pneumonia vaccination - Administer Prevnar 13 and/or Pneumovax 23 as necessary. * DVT prophylaxis - Aspirin 325MG BID. * COPD - Advair 250/50 1 puff BID, Proair MDI 2 puffs Q6H PRN. * Hyperlipidemia - Atorvastatin 20MG QHS. * Depression - Bupropion 150MG BID. * Ischemic cardiomyopathy - Coreg 12.5MG BID, Losartan 50MG QHS. * Muscle spasm - Flexeril 10MG TID PRN. * Iron deficiency anemia - Ferrex 150MG daily. * Edema - Lasix 20MG daily. * Neuropathic pain - Gabapentin 400MG TID. * Diabetes Mellitus II - Metformin 500MG BID, Glipizide 5MG daily. * Nutrition - Glucerna 120ML daily. * Hypothyroidism - Levothyroxine 75MCG daily. * GERD - Pantoprazole 40MG daily * Hypokalemia - K-Dur 20MEQ daily.
--- NOTE | 2017-12-22 21:40 | RAD_ITS ---
STUDY: X-RAY - ABDOMEN/PELVIS REASON FOR EXAM: Female, 82 years old. Diarrhea TECHNIQUE: Single AP view of the abdomen / pelvis. COMPARISON: None. FINDINGS: Normal visualized lung bases. Degenerative findings in the lumbar spine. There is scoliosis of the lumbar spine. There is metallic hardware noted in the right hip. Total left hip arthroplasty. There is a moderate amount of colonic fecal material. There is no demonstrated free abdominal air. The visualized liver, spleen and kidneys are grossly normal in size and morphology. Normal soft tissue structures. There are diffuse degenerative changes of the visualized lumbar spine. RAD/Abdomen Single View (Portable) IMPRESSION: Constipation. Electronically Signed: Julio C Crowe MD at 0:01 EST , Service support ,
--- NOTE | 2017-12-22 22:02 | NURSING ---
DR. HANNA ORDERED ABDOMINAL XRAY, THIS NURSE SPOKE WITH PT, PT REFUSING XRAY D/T STATING THAT SHE HAD A MOM AND A BM ON 12/20/17. RATIONAL FOR XRAY EXPLAINED. DR. HANNA UPDATED ON PT REFUSING XRAY, THEN PT CALLED AND SPOKE WITH THIS NURSE AGAIN, STATING IT'S OK TO DO THE XRAY TONIGHT. THIS NURSE ALSO SPOKE WITH DAUGHTER, JESSIE, ABOUT WHY THE XRAY WAS ORDERED.
[2017-12-23] MEDS: Glucerna Shake 120 ML LIQUID PO (05:47)
[2017-12-23] MEDS: Gabapentin 400 MG Capsule PO ×3 (05:48→21:08)
[2017-12-23] MEDS: Carvedilol 12.5 MG Tablet PO ×2 (05:48→17:41)
[2017-12-23] MEDS: Levothyroxine 75 MCG Tablet PO (05:48)
[2017-12-23] MEDS: Pantoprazole Sodium 40 MG Tablet PO (05:48)
[2017-12-23] MEDS: Furosemide 20 MG Tablet PO (05:48)
[2017-12-23] MEDS: Acetaminophen 500 MG Tablet 1000 MG PO ×3 (05:48→21:08)
[2017-12-23 06:49] LABS: Absolute Lymphocyte Count 1.05 X10^3/ul (0.83-4.51); Absolute Neutrophil Count 3.8 X10^3/uL (2.0-7.7); Basophil# 0.02 X10^3/uL; Basophil% 0.3 % (0-1); Eosinophils% 3.5 % (0-5); Hematocrit 35.7 % (37-47); Hemoglobin 11.3 g/dl (12.0-15.0); Lymphocyte # 1.05 X10^3/ul (4.0); Lymphocyte % 18.3 % (19-41); Mean Corp Hgb Conc 31.7 g/gl (32-36); Mean Corpuscular Volume 97.8 fL (81-99); Mean Platelet Vol. 10.8 fl (6.2-12.0); Monocyte# 0.67 X10^3/uL; Monocyte% 11.7 % (0-10); Neutrophil # 3.76 X10^3/uL (2.7-7.7); Neutrophil % 65.7 % (47-70); Platelet Count 203 K/mm3 (150-450); RBC Distribution Width CV 12.7 % (11.6-14.6); RBC Distribution Width SD 43.9 fl (35.1-43.9); Red Blood Count 3.65 M/mm3 (4.2-5.4); White Blood Count 5.7 K/mm3 (4.4-11.0)
[2017-12-23 06:50] VITALS: O2SAT 95
[2017-12-23 06:51] LABS: POSITIVE COUNT NO; POSITIVE DIFFERENTIAL NO; POSITIVE MORPHOLOGY NO
[2017-12-23 07:01] LABS: Bedside Glucose 197 mg/dL (70-110)
[2017-12-23 07:13] LABS: Anion Gap 6 (5-15); BUN 25 mg/dL (7-18); BUN/Creat Ratio 18.4 RATIO (10-20); Calcium,Total 8.6 mg/dL (8.5-10.1); Chloride 107 mmol/L (98-107); Creatinine, Serum 1.36 mg/dL (0.55-1.02); EST Glomerular Filtration Rate 40 mL/min (>60); Est Glom Filt Rate - Afr Amer 48 mL/min (>60); Estimated Creatinine Clearance 29.69 ml/min; Glucose 173 mg/dL (74-106); Potassium 4.4 mmol/L (3.5-5.1); Sodium Level 142 mmol/L (136-145)
[2017-12-23] MEDS: oxyCODONE 5 MG Tablet PO (07:37)
[2017-12-23] MEDS: Iron Polysaccharide Complex 150 MG CAPSULE PO (07:38)
[2017-12-23] MEDS: Aspirin 325 MG Tablet PO ×2 (07:38→17:41)
--- NOTE | 2017-12-23 09:13 | NURSING ---
explained pt xray results and doctors orders and pt ok with drinking nulytely 1 liter as ordered.
[2017-12-23] MEDS: Tuberculin,Purif.prot.deriv. 50 TU/ML Vial 5 ML ID (09:52)
[2017-12-23] MEDS: Electrolyte Solution/Peg's 4000 ML 1000 ML PO (09:56)
--- NOTE | 2017-12-23 14:49 | PCM.PN.RX ---
<Santiago Leon - Last Filed: 12/23/17 14:49> Progress Note - Pharmacy Subjective: TCU Admission Objective: Allergies codeine Adverse Reaction (Verified 12/04/17 14:05) constipation Home Medications Medication Instructions Recorded Carvedilol [Coreg (Beta Jin)] 12.5 mg PO BID 11/12/13 Gabapentin [Neurontin] 400 mg PO TID 11/12/13 Levothyroxine [Synthroid] 75 mcg PO DAILY 11/12/13 Metformin HCl [Glucophage] 500 mg PO BID 11/12/13 Omeprazole [Prilosec] 40 mg PO DAILY 11/12/13 Simvastatin [Zocor] 40 mg PO QHS 11/12/13 BuPROPion (SR) [Wellbutrin Sr] 150 mg PO BID 10/17/15 ferrous sulfate 325 mg (65 mg 325 mg PO QHS tab 11/02/17 iron) tablet glipizide 5 mg tablet 5 mg PO QDAY 11/02/17 losartan 50 mg tablet 50 mg PO QHS 90 Days #90 tab 11/02/17 budesonide-formoterol HFA 160 2 puff INHALATION BID g 11/06/17 mcg-4.5 mcg/actuation aerosol inhaler cyclobenzaprine 10 mg tablet 10 mg PO TID PRN 11/06/17 furosemide 20 mg tablet 20 mg PO QDAY 11/06/17 loperamide 2 mg capsule 2 mg PO Q1-4H PRN 11/06/17 Albuterol IH (ProAir) [Proair Hfa] 2 puff INHALATION Q6H PRN PRN 12/04/17 Albuterol Inhaler [Ventolin Hfa] 1 - 2 puff INHALATION BID PRN 12/04/17 Glucerna Shake 120 ml PO DAILY 12/04/17 Potassium Chloride [Klor-Con 10] 20 meq PO DAILY 12/04/17 Acetaminophen [Tylenol] 1,000 mg PO Q8 12/22/17 Aspirin 325 mg PO BIDCM 12/22/17 Oxycodone [Oxyir] 5 - 10 mg PO Q4H PRN PRN 7 Days 12/22/17 #80 tab Current Medications Generic Name Dose Route Start Last Admin Trade Name Freq PRN Reason Stop Dose Admin Acetaminophen 1,000 mg 12/22/17 22:00 12/23/17 13:53 Tylenol PO 1,000 mg Q8 MICHELA Administration Albuterol Sulfate 2 puff 12/22/17 14:06 12/23/17 11:35 Proair Hfa (Sp) Surgery/Vent Pts INHALATION 2 puff Q6H PRN PRN Administration SOB &/OR WHEEZING Aspirin 325 mg 12/22/17 17:00 12/23/17 07:38 Aspirin PO 325 mg BIDCM [facility] Administration Atorvastatin Calcium 20 mg 12/22/17 22:00 12/22/17 20:57 Lipitor PO 20 mg QHS MICHELA Administration Bisacodyl 10 mg 12/23/17 08:16 Dulcolax PO DAILY PRN Constipation Bupropion HCl 150 mg 12/22/17 18:00 12/23/17 05:48 Wellbutrin Sr PO 150 mg BID MICHELA Administration Carvedilol 12.5 mg 12/22/17 18:00 12/23/17 05:48 Coreg PO 12.5 mg BID [facility] Administration Cyclobenzaprine HCl 10 mg 12/22/17 14:06 Flexeril PO TID PRN PRN MUSCLE SPASMS Furosemide 20 mg 12/23/17 06:00 12/23/17 05:48 Lasix PO 20 mg DAILY [facility] Administration Gabapentin 400 mg 12/22/17 22:00 12/23/17 13:53 Neurontin PO 400 mg TID MICHELA Administration Glipizide 5 mg 12/23/17 08:00 12/23/17 07:38 [facility] Levothyroxine Sodium 75 mcg 12/23/17 06:00 12/23/17 05:48 Synthroid PO 75 mcg DAILY [facility] Administration Losartan Potassium 50 mg 12/22/17 22:00 12/22/17 20:57 Cozaar PO 50 mg QHS MICHELA Administration Metformin HCl 500 mg 12/22/17 17:00 12/23/17 07:37 Glucophage PO 500 mg BIDCM [facility] Administration Nutritional Formula (Lactose Free) 120 ml 12/23/17 06:00 12/23/17 05:47 Glucerna Shake PO 120 ml DAILY [facility] Administration Oxycodone HCl 5 - 10 mg 12/22/17 14:06 12/23/17 07:37 Oxyir PO 10 mg Q4H PRN PRN Administration MOD-SEVERE PAIN (4-10/10) Pantoprazole Sodium 40 mg 12/23/17 06:00 12/23/17 05:48 Protonix PO 40 mg DAILY MICHELA Administration Polyethylene Glycol 17 gm 12/24/17 06:00 Miralax PO DAILY MICHELA Polysaccharide Iron Complex 150 mg 12/23/17 08:00 12/23/17 07:38 Ferrex 150 PO 150 mg DAILYCM [facility] Administration Potassium Chloride 20 meq 12/23/17 08:00 12/23/17 07:37 K-Dur PO 20 meq DAILYCM [facility] Administration Fluticasone/Salmeterol 1 puff 12/22/17 18:00 12/23/17 05:49 Advair 250/50 Mcg Diskus INHALATION 1 puff BID MICHELA Administration Senna/Docusate Sodium 2 tablet 12/23/17 18:00 Senokot-S, Mariana-Colace PO BID MICHELA Tuberculin PPD 5 tu 12/30/17 10:00 Tubersol, Aplisol, Ppd ID 12/30/17 10:01 X1 ONE Problem List (Last Reviewed 11/06/17 @ 13:33 by Patrick Duenas MD) Osteoarthritis of right hip (Chronic) Diabetes mellitus (Chronic) Hypertension (Chronic) Neuropathic pain (Chronic) Depression (Chronic) Iron deficiency anemia (Chronic) Ischemic cardiomyopathy (Chronic) Vital Signs Temp Pulse Resp BP Pulse Ox 97.8 F 70 22 H 112/60 95 12/22/17 16:00 12/22/17 16:00 12/22/17 16:00 12/22/17 16:00 12/23/17 06:50 Oxygen Delivery Method Room Air Weight: 88.9 kg Body Mass Index (BMI) 32.1 Finger Stick Blood Glucose 171 Sodium 142 mmol/L (136-145) 12/23/17 06:29 Potassium 4.4 mmol/L (3.5-5.1) 12/23/17 06:29 Chloride 107 mmol/L (98-107) 12/23/17 06:29 Carbon Dioxide 29.0 mmol/L (21.0-32.0) 12/23/17 06:29 Anion Gap 6 (5-15) 12/23/17 06:29 BUN 25 mg/dL (7-18) H 12/23/17 06:29 Creatinine 1.36 mg/dL (0.55-1.02) H 02/18/18 06:29 Est GFR (MDRD) Af Amer 48 mL/min (>60) L 12/23/17 06:29 Est GFR (MDRD) Non-Af 40 mL/min (>60) L 12/23/17 06:29 BUN/Creatinine Ratio 18.4 RATIO (10-20) 12/23/17 06:29 Glucose 173 mg/dL (74-106) H 12/23/17 06:29 Assessment/Plan: 1) Pain APAP, gabapentin, prn cyclobenzaprine. Continue to monitor prn medication use, daily pain scores. 2) Cardiomyopathy/Edema/HLD Furosemide/KCl, carvedilol, losartan, atorvastatin. BP/HR within goal ranges, BUN/SCr at baseline, K wnl, no recent lipids or hepatic enzymes in EMR for review. Continue to monitor renal function, electrolytes, BP/HR, lipids, hepatic enzymes. 3) Hypothyroidism Levothyroxine daily. Continue to monitor s/s hyper/hypothyroidism. 4) COPD Advair inhaler twice daily, albuterol prn for shortness of breath. Continue to monitor s/s exacerbation. 5) DM2 Glipizide, metformin. Avg BGT < 200 mg/dL. Continue to monitor BGT, renal function, s/s hyper/hypoglycemia. 6) Nutrition KCL, Fe, Glucerna. Continue to monitor electrolytes. 7) GI Pantoprazole daily. Continue to monitor s/s GI distress. 8) DVT PPx ASA twice daily. Continue to monitor s/s bleeding/clot. Psychotropic Medications: 9) Depression Bupropion twice daily. Continue to monitor s/s depression. Unnecessary Medications: None Bowel Regimen: 10) Senna/s, PEG, prn bisacodyl. Continue to monitor prn medication use, for constipation/diarrhea. Date of Note:: 12/23/17 - Provider Comments Provider responsibility: Provider responsible to enter orders to implement recommendations <John Paul Bolton Chi - Last Filed: 12/23/17 22:11> Progress Note - Pharmacy Subjective: [] Objective: Allergies codeine Adverse Reaction (Verified 12/04/17 14:05) constipation Home Medications Medication Instructions Recorded Carvedilol [Coreg (Beta Jin)] 12.5 mg PO BID 11/12/13 Gabapentin [Neurontin] 400 mg PO TID 11/12/13 Levothyroxine [Synthroid] 75 mcg PO DAILY 11/12/13 Metformin HCl [Glucophage] 500 mg PO BID 11/12/13 Omeprazole [Prilosec] 40 mg PO DAILY 11/12/13 Simvastatin [Zocor] 40 mg PO QHS 11/12/13 BuPROPion (SR) [Wellbutrin Sr] 150 mg PO BID 10/17/15 ferrous sulfate 325 mg (65 mg 325 mg PO QHS tab 11/02/17 iron) tablet glipizide 5 mg tablet 5 mg PO QDAY 11/02/17 losartan 50 mg tablet 50 mg PO QHS 90 Days #90 tab 11/02/17 budesonide-formoterol HFA 160 2 puff INHALATION BID g 11/06/17 mcg-4.5 mcg/actuation aerosol inhaler cyclobenzaprine 10 mg tablet 10 mg PO TID PRN 11/06/17 furosemide 20 mg tablet 20 mg PO QDAY 11/06/17 loperamide 2 mg capsule 2 mg PO Q1-4H PRN 11/06/17 Albuterol IH (ProAir) [Proair Hfa] 2 puff INHALATION Q6H PRN PRN 12/04/17 Albuterol Inhaler [Ventolin Hfa] 1 - 2 puff INHALATION BID PRN 12/04/17 Glucerna Shake 120 ml PO DAILY 12/04/17 Potassium Chloride [Klor-Con 10] 20 meq PO DAILY 12/04/17 Acetaminophen [Tylenol] 1,000 mg PO Q8 12/22/17 Aspirin 325 mg PO BIDCM 12/22/17 Oxycodone [Oxyir] 5 - 10 mg PO Q4H PRN PRN 7 Days 12/22/17 #80 tab Current Medications Generic Name Dose Route Start Last Admin Trade Name Freq PRN Reason Stop Dose Admin Acetaminophen 1,000 mg 12/22/17 22:00 12/23/17 21:08 Tylenol PO 1,000 mg Q8 MICHELA Administration Albuterol Sulfate 2 puff 12/22/17 14:06 12/23/17 11:35 Proair Hfa (Sp) Surgery/Vent Pts INHALATION 2 puff Q6H PRN PRN Administration SOB &/OR WHEEZING Aspirin 325 mg 12/22/17 17:00 12/23/17 17:41 Aspirin PO 325 mg BIDCM [facility] Administration Atorvastatin Calcium 20 mg 12/22/17 22:00 12/23/17 21:09 Lipitor PO 20 mg QHS [facility] Administration Bisacodyl 10 mg 12/23/17 08:16 Dulcolax PO DAILY PRN Constipation Bupropion HCl 150 mg 12/22/17 18:00 12/23/17 17:41 Wellbutrin Sr PO 150 mg BID [facility] Administration Carvedilol 12.5 mg 12/22/17 18:00 12/23/17 17:41 Coreg PO 12.5 mg BID [facility] Administration Cyclobenzaprine HCl 10 mg 12/22/17 14:06 Flexeril PO TID PRN PRN MUSCLE SPASMS Furosemide 20 mg 12/23/17 06:00 12/23/17 05:48 Lasix PO 20 mg DAILY [facility] Administration Gabapentin 400 mg 12/22/17 22:00 12/23/17 21:08 Neurontin PO 400 mg TID [facility] Administration Glipizide 5 mg 12/23/17 08:00 12/23/17 07:38 [facility] Administration Levothyroxine Sodium 75 mcg 12/23/17 06:00 12/23/17 05:48 Synthroid PO 75 mcg DAILY [facility] Administration Losartan Potassium 50 mg 12/22/17 22:00 12/23/17 21:09 Cozaar PO 50 mg QHS [facility] Administration Metformin HCl 500 mg 12/22/17 17:00 12/23/17 17:40 Glucophage PO 500 mg BIDCM [facility] Administration Nutritional Formula (Lactose Free) 120 ml 12/23/17 06:00 12/23/17 05:47 Glucerna Shake PO 120 ml DAILY [facility] Administration Oxycodone HCl 5 - 10 mg 12/22/17 14:06 12/23/17 07:37 Oxyir PO 10 mg Q4H PRN PRN Administration MOD-SEVERE PAIN (4-10/10) Pantoprazole Sodium 40 mg 12/23/17 06:00 12/23/17 05:48 Protonix PO 40 mg DAILY [facility] Administration Polyethylene Glycol 17 gm 12/24/17 06:00 Miralax PO DAILY [facility] Polysaccharide Iron Complex 150 mg 12/23/17 08:00 12/23/17 07:38 Ferrex 150 [facility] Administration Potassium Chloride 20 meq 12/23/17 08:00 12/23/17 07:37 K-Dur PO 20 meq DAILYCM [facility] Administration Fluticasone/Salmeterol 1 puff 12/22/17 18:00 12/23/17 17:40 Advair 250/50 Mcg Diskus INHALATION 1 puff BID [facility] Administration Senna/Docusate Sodium 2 tablet 12/23/17 18:00 12/23/17 17:41 Senokot-S, Mariana-Colace PO 2 tablet BID [facility] Administration Tuberculin PPD 5 tu 12/30/17 10:00 Tubersol, Aplisol, Ppd ID 12/30/17 10:01 X1 ONE Problem List (Last Reviewed 11/06/17 @ 13:33 by Patrick Duenas MD) Osteoarthritis of right hip (Chronic) Diabetes mellitus (Chronic) Hypertension (Chronic) Neuropathic pain (Chronic) Depression (Chronic) Iron deficiency anemia (Chronic) Ischemic cardiomyopathy (Chronic) Vital Signs Temp Pulse Resp BP Pulse Ox 98.2 F 70 18 119/75 92 12/23/17 16:00 12/23/17 16:00 12/23/17 16:00 12/23/17 16:00 12/23/17 16:00 Oxygen Delivery Method Room Air Weight: 88.9 kg Body Mass Index (BMI) 32.1 Finger Stick Blood Glucose 171 Sodium 142 mmol/L (136-145) 12/23/17 06:29 Potassium 4.4 mmol/L (3.5-5.1) 12/23/17 06:29 Chloride 107 mmol/L (98-107) 12/23/17 06:29 Carbon Dioxide 29.0 mmol/L (21.0-32.0) 12/23/17 06:29 Anion Gap 6 (5-15) 12/23/17 06:29 BUN 25 mg/dL (7-18) H 12/23/17 06:29 Creatinine 1.36 mg/dL (0.55-1.02) H 12/23/17 06:29 Est GFR (MDRD) Af Amer 48 mL/min (>60) L 12/23/17 06:29 Est GFR (MDRD) Non-Af 40 mL/min (>60) L 12/23/17 06:29 BUN/Creatinine Ratio 18.4 RATIO (10-20) 12/23/17 06:29 Glucose 173 mg/dL (74-106) H 12/23/17 06:29 Assessment/Plan: Psychotropic Medications: Unnecessary Medications: Bowel Regimen: - Provider Comments Provider responsibility: Provider responsible to enter orders to implement recommendations Provider Comments to Recommendations by Pharmacy: Agree
--- NOTE | 2017-12-23 15:18 | PHA.CONS_ITS ---
<Santiago Leon - Last Filed: 12/23/17 14:49> Progress Note - Pharmacy Subjective: TCU Admission Objective: Allergies codeine Adverse Reaction (Verified 12/04/17 14:05) constipation Home Medications Medication Instructions Recorded Carvedilol [Coreg (Beta Jin)] 12.5 mg PO BID 11/12/13 Gabapentin [Neurontin] 400 mg PO TID 11/12/13 Levothyroxine [Synthroid] 75 mcg PO DAILY 11/12/13 Metformin HCl [Glucophage] 500 mg PO BID 11/12/13 Omeprazole [Prilosec] 40 mg PO DAILY 11/12/13 Simvastatin [Zocor] 40 mg PO QHS 11/12/13 BuPROPion (SR) [Wellbutrin Sr] 150 mg PO BID 10/17/15 ferrous sulfate 325 mg (65 mg 325 mg PO QHS tab 11/02/17 iron) tablet glipizide 5 mg tablet 5 mg PO QDAY 11/02/17 losartan 50 mg tablet 50 mg PO QHS 90 Days #90 tab 11/02/17 budesonide-formoterol HFA 160 2 puff INHALATION BID g 11/06/17 mcg-4.5 mcg/actuation aerosol inhaler cyclobenzaprine 10 mg tablet 10 mg PO TID PRN 11/06/17 furosemide 20 mg tablet 20 mg PO QDAY 11/06/17 loperamide 2 mg capsule 2 mg PO Q1-4H PRN 11/06/17 Albuterol IH (ProAir) [Proair Hfa] 2 puff INHALATION Q6H PRN PRN 12/04/17 Albuterol Inhaler [Ventolin Hfa] 1 - 2 puff INHALATION BID PRN 12/04/17 Glucerna Shake 120 ml PO DAILY 12/04/17 Potassium Chloride [Klor-Con 10] 20 meq PO DAILY 12/04/17 Acetaminophen [Tylenol] 1,000 mg PO Q8 12/22/17 Aspirin 325 mg PO BIDCM 12/22/17 Oxycodone [Oxyir] 5 - 10 mg PO Q4H PRN PRN 7 Days 12/22/17 #80 tab Current Medications Generic Name Dose Route Start Last Admin Trade Name Freq PRN Reason Stop Dose Admin Acetaminophen 1,000 mg 12/22/17 22:00 12/23/17 13:53 Tylenol PO 1,000 mg Q8 MICHELA Administration Albuterol Sulfate 2 puff 12/22/17 14:06 12/23/17 11:35 Proair Hfa (Sp) Surgery/Vent Pts INHALATION 2 puff Q6H PRN PRN Administration SOB &/OR WHEEZING Aspirin 325 mg 12/22/17 17:00 12/23/17 07:38 Aspirin PO 325 mg BIDCM [facility] Administration Atorvastatin Calcium 20 mg 12/22/17 22:00 12/22/17 20:57 Lipitor PO 20 mg QHS MICHELA Administration Bisacodyl 10 mg 12/23/17 08:16 Dulcolax PO DAILY PRN Constipation Bupropion HCl 150 mg 12/22/17 18:00 12/23/17 05:48 Wellbutrin Sr PO 150 mg BID MICHELA Administration Carvedilol 12.5 mg 12/22/17 18:00 12/23/17 05:48 Coreg PO 12.5 mg BID [facility] Administration Cyclobenzaprine HCl 10 mg 12/22/17 14:06 Flexeril PO TID PRN PRN MUSCLE SPASMS Furosemide 20 mg 12/23/17 06:00 12/23/17 05:48 Lasix PO 20 mg DAILY [facility] Administration Gabapentin 400 mg 12/22/17 22:00 12/23/17 13:53 Neurontin PO 400 mg TID MICHELA Administration Glipizide 5 mg 12/23/17 08:00 12/23/17 07:38 [facility] Administration Levothyroxine Sodium 75 mcg 12/23/17 06:00 12/23/17 05:48 Synthroid PO 75 mcg DAILY [facility] Administration Losartan Potassium 50 mg 12/22/17 22:00 12/22/17 20:57 Cozaar PO 50 mg QHS MICHELA Administration Metformin HCl 500 mg 12/22/17 17:00 12/23/17 07:37 Glucophage PO 500 mg BIDCM [facility] Administration Nutritional Formula (Lactose Free) 120 ml 12/23/17 06:00 12/23/17 05:47 Glucerna Shake PO 120 ml DAILY [facility] Administration Oxycodone HCl 5 - 10 mg 12/22/17 14:06 12/23/17 07:37 Oxyir PO 10 mg Q4H PRN PRN Administration MOD-SEVERE PAIN (4-10/10) Pantoprazole Sodium 40 mg 12/23/17 06:00 12/23/17 05:48 Protonix PO 40 mg DAILY MICHELA Administration Polyethylene Glycol 17 gm 12/24/17 06:00 Miralax PO DAILY MICHELA Polysaccharide Iron Complex 150 mg 12/23/17 08:00 12/23/17 07:38 Ferrex 150 PO 150 mg DAILYCM MICHELA Administration Potassium Chloride 20 meq 12/23/17 08:00 12/23/17 07:37 K-Dur PO 20 meq DAILYCM MICHELA Administration Fluticasone/Salmeterol 1 puff 12/22/17 18:00 12/23/17 05:49 Advair 250/50 Mcg Diskus INHALATION 1 puff BID MICHELA Administration Senna/Docusate Sodium 2 tablet 12/23/17 18:00 Senokot-S, Mariana-Colace PO BID MICHELA Tuberculin PPD 5 tu 12/30/17 10:00 Tubersol, Aplisol, Ppd ID 12/30/17 10:01 X1 ONE Problem List (Last Reviewed 11/06/17 @ 13:33 by Patrick Duenas MD) Osteoarthritis of right hip (Chronic) Diabetes mellitus (Chronic) Hypertension (Chronic) Neuropathic pain (Chronic) Depression (Chronic) Iron deficiency anemia (Chronic) Ischemic cardiomyopathy (Chronic) Vital Signs Temp Pulse Resp BP Pulse Ox 97.8 F 70 22 H 112/60 95 12/22/17 16:00 12/22/17 16:00 12/22/17 16:00 12/22/17 16:00 12/23/17 06:50 Oxygen Delivery Method Room Air Weight: 88.9 kg Body Mass Index (BMI) 32.1 Finger Stick Blood Glucose 171 Sodium 142 mmol/L (136-145) 12/23/17 06:29 Potassium 4.4 mmol/L (3.5-5.1) 12/23/17 06:29 Chloride 107 mmol/L (98-107) 12/23/17 06:29 Carbon Dioxide 29.0 mmol/L (21.0-32.0) 12/23/17 06:29 Anion Gap 6 (5-15) 12/23/17 06:29 BUN 25 mg/dL (7-18) H 12/23/17 06:29 Creatinine 1.36 mg/dL (0.55-1.02) H 02/18/18 06:29 Est GFR (MDRD) Af Amer 48 mL/min (>60) L 12/23/17 06:29 Est GFR (MDRD) Non-Af 40 mL/min (>60) L 12/23/17 06:29 BUN/Creatinine Ratio 18.4 RATIO (10-20) 12/23/17 06:29 Glucose 173 mg/dL (74-106) H 12/23/17 06:29 Assessment/Plan: 1) Pain APAP, gabapentin, prn cyclobenzaprine. Continue to monitor prn medication use , daily pain scores. 2) Cardiomyopathy/Edema/HLD Furosemide/KCl, carvedilol, losartan, atorvastatin. BP/HR within goal ranges , BUN/SCr at baseline, K wnl, no recent lipids or hepatic enzymes in EMR for review. Continue to monitor renal function, electrolytes, BP/HR, lipids, hepatic enzymes. 3) Hypothyroidism Levothyroxine daily. Continue to monitor s/s hyper/hypothyroidism. 4) COPD Advair inhaler twice daily, albuterol prn for shortness of breath. Continue to monitor s/s exacerbation. 5) DM2 Glipizide, metformin. Avg BGT < 200 mg/dL. Continue to monitor BGT, renal function, s/s hyper/hypoglycemia. 6) Nutrition KCL, Fe, Glucerna. Continue to monitor electrolytes. 7) GI Pantoprazole daily. Continue to monitor s/s GI distress. 8) DVT PPx ASA twice daily. Continue to monitor s/s bleeding/clot. Psychotropic Medications: 9) Depression Bupropion twice daily. Continue to monitor s/s depression. Unnecessary Medications: None Bowel Regimen: 10) Senna/s, PEG, prn bisacodyl. Continue to monitor prn medication use, for constipation/diarrhea. Date of Note:: 12/23/17 - Provider Comments Provider responsibility: Provider responsible to enter orders to implement recommendations <John Paul Bolton Chi - Last Filed: 12/23/17 22:11> Progress Note - Pharmacy Subjective: [] Objective: Allergies codeine Adverse Reaction (Verified 12/04/17 14:05) constipation Home Medications Medication Instructions Recorded Carvedilol [Coreg (Beta Jin)] 12.5 mg PO BID 11/12/13 Gabapentin [Neurontin] 400 mg PO TID 11/12/13 Levothyroxine [Synthroid] 75 mcg PO DAILY 11/12/13 Metformin HCl [Glucophage] 500 mg PO BID 11/12/13 Omeprazole [Prilosec] 40 mg PO DAILY 11/12/13 Simvastatin [Zocor] 40 mg PO QHS 11/12/13 BuPROPion (SR) [Wellbutrin Sr] 150 mg PO BID 10/17/15 ferrous sulfate 325 mg (65 mg 325 mg PO QHS tab 11/02/17 iron) tablet glipizide 5 mg tablet 5 mg PO QDAY 11/02/17 losartan 50 mg tablet 50 mg PO QHS 90 Days #90 tab 11/02/17 budesonide-formoterol HFA 160 2 puff INHALATION BID g 11/06/17 mcg-4.5 mcg/actuation aerosol inhaler cyclobenzaprine 10 mg tablet 10 mg PO TID PRN 11/06/17 furosemide 20 mg tablet 20 mg PO QDAY 11/06/17 loperamide 2 mg capsule 2 mg PO Q1-4H PRN 11/06/17 Albuterol IH (ProAir) [Proair Hfa] 2 puff INHALATION Q6H PRN PRN 12/04/17 Albuterol Inhaler [Ventolin Hfa] 1 - 2 puff INHALATION BID PRN 12/04/17 Glucerna Shake 120 ml PO DAILY 12/04/17 Potassium Chloride [Klor-Con 10] 20 meq PO DAILY 12/04/17 Acetaminophen [Tylenol] 1,000 mg PO Q8 12/22/17 Aspirin 325 mg PO BIDCM 12/22/17 Oxycodone [Oxyir] 5 - 10 mg PO Q4H PRN PRN 7 Days 12/22/17 #80 tab Current Medications Generic Name Dose Route Start Last Admin Trade Name Freq PRN Reason Stop Dose Admin Acetaminophen 1,000 mg 12/22/17 22:00 12/23/17 21:08 Tylenol PO 1,000 mg Q8 MICHELA Administration Albuterol Sulfate 2 puff 12/22/17 14:06 12/23/17 11:35 Proair Hfa (Sp) Surgery/Vent Pts INHALATION 2 puff Q6H PRN PRN Administration SOB &/OR WHEEZING Aspirin 325 mg 12/22/17 17:00 12/23/17 17:41 Aspirin PO 325 mg BIDCM MICHELA Administration Atorvastatin Calcium 20 mg 12/22/17 22:00 12/23/17 21:09 Lipitor PO 20 mg QHS [facility] Administration Bisacodyl 10 mg 12/23/17 08:16 Dulcolax PO DAILY PRN Constipation Bupropion HCl 150 mg 12/22/17 18:00 12/23/17 17:41 Wellbutrin Sr PO 150 mg BID [facility] Administration Carvedilol 12.5 mg 12/22/17 18:00 12/23/17 17:41 Coreg PO 12.5 mg BID [facility] Administration Cyclobenzaprine HCl 10 mg 12/22/17 14:06 Flexeril PO TID PRN PRN MUSCLE SPASMS Furosemide 20 mg 12/23/17 06:00 12/23/17 05:48 Lasix PO 20 mg DAILY [facility] Administration Gabapentin 400 mg 12/22/17 22:00 12/23/17 21:08 Neurontin PO 400 mg TID [facility] Administration Glipizide 5 mg 12/23/17 08:00 12/23/17 07:38 [facility]rol [facility] Administration Levothyroxine Sodium 75 mcg 12/23/17 06:00 12/23/17 05:48 Synthroid PO 75 mcg DAILY [facility] Administration Losartan Potassium 50 mg 12/22/17 22:00 12/23/17 21:09 Cozaar PO 50 mg QHS [facility] Administration Metformin HCl 500 mg 12/22/17 17:00 12/23/17 17:40 Glucophage PO 500 mg BIDCM [facility] Administration Nutritional Formula (Lactose Free) 120 ml 12/23/17 06:00 12/23/17 05:47 Glucerna Shake PO 120 ml DAILY [facility] Administration Oxycodone HCl 5 - 10 mg 12/22/17 14:06 12/23/17 07:37 Oxyir PO 10 mg Q4H PRN PRN Administration MOD-SEVERE PAIN (4-10/10) Pantoprazole Sodium 40 mg 12/23/17 06:00 12/23/17 05:48 Protonix PO 40 mg DAILY [facility] Administration Polyethylene Glycol 17 gm 12/24/17 06:00 Miralax PO DAILY [facility] Polysaccharide Iron Complex 150 mg 12/23/17 08:00 12/23/17 07:38 Ferrex 150 PO 150 [facility] Administration Potassium Chloride 20 meq 12/23/17 08:00 12/23/17 07:37 K-Dur PO 20 meq DAILYCM MICHELA Administration Fluticasone/Salmeterol 1 puff 12/22/17 18:00 12/23/17 17:40 Advair 250/50 Mcg Diskus INHALATION 1 puff BID MICHELA Administration Senna/Docusate Sodium 2 tablet 12/23/17 18:00 12/23/17 17:41 Senokot-S, Mariana-Colace PO 2 tablet BID MICHELA Administration Tuberculin PPD 5 tu 12/30/17 10:00 Tubersol, Aplisol, Ppd ID 12/30/17 10:01 X1 ONE Problem List (Last Reviewed 11/06/17 @ 13:33 by Patrick Duenas MD) Osteoarthritis of right hip (Chronic) Diabetes mellitus (Chronic) Hypertension (Chronic) Neuropathic pain (Chronic) Depression (Chronic) Iron deficiency anemia (Chronic) Ischemic cardiomyopathy (Chronic) Vital Signs Temp Pulse Resp BP Pulse Ox 98.2 F 70 18 119/75 92 12/23/17 16:00 12/23/17 16:00 12/23/17 16:00 12/23/17 16:00 12/23/17 16:00 Oxygen Delivery Method Room Air Weight: 88.9 kg Body Mass Index (BMI) 32.1 Finger Stick Blood Glucose 171 Sodium 142 mmol/L (136-145) 12/23/17 06:29 Potassium 4.4 mmol/L (3.5-5.1) 12/23/17 06:29 Chloride 107 mmol/L (98-107) 12/23/17 06:29 Carbon Dioxide 29.0 mmol/L (21.0-32.0) 12/23/17 06:29 Anion Gap 6 (5-15) 12/23/17 06:29 BUN 25 mg/dL (7-18) H 12/23/17 06:29 Creatinine 1.36 mg/dL (0.55-1.02) H 12/23/17 06:29 Est GFR (MDRD) Af Amer 48 mL/min (>60) L 12/23/17 06:29 Est GFR (MDRD) Non-Af 40 mL/min (>60) L 12/23/17 06:29 BUN/Creatinine Ratio 18.4 RATIO (10-20) 12/23/17 06:29 Glucose 173 mg/dL (74-106) H 12/23/17 06:29 Assessment/Plan: Psychotropic Medications: Unnecessary Medications: Bowel Regimen: - Provider Comments Provider responsibility: Provider responsible to enter orders to implement recommendations Provider Comments to Recommendations by Pharmacy: Agree
[2017-12-23 16:00] VITALS: BP 119/75; PULSE 70; RESP 18; TEMP 36.8; O2SAT 92
[2017-12-23] MEDS: Senna/Docusate Sodium 1 Tablet 2 TABLET PO (17:41)
[2017-12-23] MEDS: Losartan Potassium 50 MG Tablet PO (21:09)
[2017-12-23] MEDS: Atorvastatin Calcium 20 MG Tablet PO (21:09)
[2017-12-24] MEDS: Glucerna Shake 120 ML LIQUID PO (06:22)
[2017-12-24] MEDS: Levothyroxine 75 MCG Tablet PO (06:23)
[2017-12-24] MEDS: Acetaminophen 500 MG Tablet 1000 MG PO ×3 (06:23→21:05)
[2017-12-24] MEDS: Furosemide 20 MG Tablet PO (06:23)
[2017-12-24] MEDS: Pantoprazole Sodium 40 MG Tablet PO (06:23)
[2017-12-24] MEDS: Gabapentin 400 MG Capsule PO ×3 (06:23→21:05)
[2017-12-24] MEDS: Carvedilol 12.5 MG Tablet PO ×2 (06:24→17:32)
[2017-12-24 06:45] VITALS: O2SAT 94
[2017-12-24 06:51] LABS: Bedside Glucose 223 mg/dL (70-110)
[2017-12-24] MEDS: Iron Polysaccharide Complex 150 MG CAPSULE PO (08:14)
[2017-12-24] MEDS: Aspirin 325 MG Tablet PO ×2 (08:14→17:32)
--- NOTE | 2017-12-24 11:22 | NURSING ---
Pt has a sore coated tongue and throat, Dr. Bolton updated and N.O. for nystatin s/s. Pt updated.
[2017-12-24] MEDS: NYSTATIN 500,000 UNIT/5 ML UDC 500000 UNIT PO ×3 (12:34→21:05)
[2017-12-24 15:43] VITALS: BP 114/64; PULSE 72; RESP 22; TEMP 36.4; O2SAT 93
[2017-12-24] MEDS: Senna/Docusate Sodium 1 Tablet 2 TABLET PO (17:32)
[2017-12-24] MEDS: Atorvastatin Calcium 20 MG Tablet PO (21:05)
[2017-12-24] MEDS: Losartan Potassium 50 MG Tablet PO (21:05)
[2017-12-24] MEDS: oxyCODONE 5 MG Tablet PO (21:08)
[2017-12-25 06:31] LABS: Bedside Glucose 161 mg/dL (70-110)
[2017-12-25] MEDS: Carvedilol 12.5 MG Tablet PO ×2 (06:35→16:49)
[2017-12-25] MEDS: Glucerna Shake 120 ML LIQUID PO (06:35)
[2017-12-25] MEDS: Levothyroxine 75 MCG Tablet PO (06:36)
[2017-12-25] MEDS: Pantoprazole Sodium 40 MG Tablet PO (06:36)
[2017-12-25] MEDS: Gabapentin 400 MG Capsule PO ×3 (06:36→21:11)
[2017-12-25] MEDS: NYSTATIN 500,000 UNIT/5 ML UDC 500000 UNIT PO ×4 (06:36→21:12)
[2017-12-25] MEDS: Furosemide 20 MG Tablet PO (06:36)
[2017-12-25] MEDS: Acetaminophen 500 MG Tablet 1000 MG PO ×3 (06:37→21:10)
[2017-12-25 06:39] VITALS: PULSE 72; O2SAT 97
[2017-12-25] MEDS: Iron Polysaccharide Complex 150 MG CAPSULE PO (07:54)
[2017-12-25] MEDS: Aspirin 325 MG Tablet PO ×2 (07:54→16:48)
[2017-12-25 08:04] VITALS: O2SAT 96
[2017-12-25] MEDS: oxyCODONE 5 MG Tablet PO ×2 (15:28→21:14)
[2017-12-25 15:29] VITALS: BP 128/72; PULSE 84; RESP 20; TEMP 36.7; O2SAT 100
--- NOTE | 2017-12-25 15:50 | CHAPLAIN ---
Type of Pastoral Visit _x__ Initial Visit ___ Follow-up Visit ___ On-call Visit ___ General Patient Visit ___ Spiritual Assessment ___ Family Conference ___ Bereavement ___ Rapid Response ___ Code Blue ___ Other (describe below) Pastoral Care Referral From _x__ Patient ___ Family ___ Nurse ___ Physician ___ Ed Transporter ___ Stitching Machine Setter ___ Other (describe below) Sacrament/Intervention _x__ Active listening ___ Anointing ___ Samaritan ___ Bereavement ___ Communion ___ Monica exploration ___ ___ Life review _x__ Prayer ___ Reconciliation ___ Sacrament of Sick _x__ Supportive presence ___ Wedding ___ Other (describe below) Pastoral Comments
[2017-12-25] MEDS: Senna/Docusate Sodium 1 Tablet 2 TABLET PO (16:49)
[2017-12-25] MEDS: Atorvastatin Calcium 20 MG Tablet PO (21:11)
[2017-12-25] MEDS: Losartan Potassium 50 MG Tablet PO (21:11)
[2017-12-26] MEDS: Glucerna Shake 120 ML LIQUID PO (06:45)
[2017-12-26] MEDS: Acetaminophen 500 MG Tablet 1000 MG PO ×3 (06:45→21:07)
[2017-12-26] MEDS: Carvedilol 12.5 MG Tablet PO ×2 (06:45→16:58)
[2017-12-26 06:46] LABS: Bedside Glucose 181 mg/dL (70-110)
[2017-12-26] MEDS: Levothyroxine 75 MCG Tablet PO (06:46)
[2017-12-26] MEDS: Gabapentin 400 MG Capsule PO ×3 (06:46→21:07)
[2017-12-26] MEDS: Furosemide 20 MG Tablet PO (06:46)
[2017-12-26] MEDS: Pantoprazole Sodium 40 MG Tablet PO (06:46)
[2017-12-26] MEDS: NYSTATIN 500,000 UNIT/5 ML UDC 500000 UNIT PO ×4 (06:46→21:07)
[2017-12-26] MEDS: Aspirin 325 MG Tablet PO ×2 (07:55→16:59)
[2017-12-26] MEDS: Iron Polysaccharide Complex 150 MG CAPSULE PO (07:56)
[2017-12-26 08:02] VITALS: O2SAT 98
[2017-12-26 16:00] VITALS: BP 122/70; PULSE 79; RESP 20; TEMP 36.4; O2SAT 98
--- NOTE | 2017-12-26 16:03 | CASEMGMT ---
Social Work Spoke with resident in room. Resident requesting for discharge date to be set for 12/29/17. Spoke with staff/therapy, 12/29/17 is an agreeable date at this time. This social media job titles communicating that physical therapy is recommending for resident to discharge home with continued outpatient physical therapy. Resident is agreeable to recommendation and unsure if resident would like to have therapy through [facility] or [facility]. Resident planning to speak with family and this social media job titles is to follow up with resident decision. Resident agreeable to this social media job titles contacting resident daughterLeslie to inform Leslie of discharge date and plan. Telephone call to Leslie, mail left. This social media job titles encouraging Leslie to contact this social media job titles back with any questions or concerns. Support given. Proposed discharge date: 12/29/17 PLAN: Discharge home with daughter and outpatient physical therapy. Deb KAMARA, ORGANIZATIONAL DEVELOPMENT CONSULTANT
--- NOTE | 2017-12-26 16:37 | CASEMGMT ---
Brief interview for mental status (BIMS) and resident mood interview (PHQ-9) completed on this day. BIMS score 15. PHQ-9 score 01/01. Deb KAMARA, CUSTOMER ADVOCATE
[2017-12-26] MEDS: Senna/Docusate Sodium 1 Tablet 2 TABLET PO (16:59)
[2017-12-26] MEDS: oxyCODONE 5 MG Tablet PO (20:13)
--- NOTE | 2017-12-26 20:38 | PCM.DC ---
- Discharge Diagnoses Current Active Problems: Current Active and Chronic Problems (Last Reviewed 11/06/17 @ 13:33 by Patrick Duenas MD) Osteoarthritis of right hip (Chronic) Diabetes mellitus (Chronic) Hypertension (Chronic) Neuropathic pain (Chronic) Depression (Chronic) Iron deficiency anemia (Chronic) Ischemic cardiomyopathy (Chronic) You will use the following diet at home:: No restrictions, Regular Your food should be the consistency of: Regular Your liquids should be the consistency of: Regular/Thin Discharge Activity: Return to Normal Activity, May Shower, Use Walker Weight Bearing Status: Weight bearing as tolerated Call your doctor if you observe: Fever of 101 or Higher, Inability to urinate, Inability to have a bowel movement, Shortness of breath, Chest pain, Uncontrolled pain Allergies/Adverse Reactions: Allergies codeine Adverse Reaction (Verified 12/04/17 14:05) constipation Medications to take at Discharge Carvedilol [Coreg (Beta Jin)] 12.5 mg PO BID 11/12/13 Gabapentin [Neurontin] 400 mg PO TID 11/12/13 Levothyroxine [Synthroid] 75 mcg PO DAILY 11/12/13 Metformin HCl [Glucophage] 500 mg PO BID 11/12/13 Omeprazole [Prilosec] 40 mg PO DAILY 11/12/13 Simvastatin [Zocor] 40 mg PO QHS 11/12/13 BuPROPion (SR) [Wellbutrin Sr] 150 mg PO BID 10/17/15 glipizide 5 mg tablet 5 mg PO QDAY 11/02/17 losartan 50 mg tablet 50 mg PO QHS 90 Days #90 tab 11/02/17 budesonide-formoterol HFA 160 mcg-4.5 mcg/actuation aerosol inhaler 2 puff INHALATION BID g 11/06/17 cyclobenzaprine 10 mg tablet 10 mg PO TID PRN 11/06/17 furosemide 20 mg tablet 20 mg PO QDAY 11/06/17 Albuterol IH (ProAir) [Proair Hfa] 2 puff INHALATION Q6H PRN PRN 12/04/17 Albuterol Inhaler [Ventolin Hfa] 1 - 2 puff INHALATION BID PRN 12/04/17 Potassium Chloride [Klor-Con 10] 20 meq PO DAILY 12/04/17 Acetaminophen [Tylenol] 1,000 mg PO Q8 12/22/17 Aspirin 325 mg PO BIDCM #36 tab 12/26/17 Iron Polysaccharide Complex [Ferrex 150] 150 mg PO DAILYCM #30 cap 12/26/17 Nystatin 500,000 unit PO 4X/DAY #1 bottle 12/26/17 Oxycodone [Oxyir] 5 - 10 mg PO Q4H PRN PRN 7 Days #42 tab 12/26/17 Polyethylene Glycol 3350 [Miralax] 17 gm PO DAILY #30 packet 12/26/17 The following prescriptions were given: Oxycodone [Oxyir] 5 - 10 mg PO Q4H PRN PRN 7 Days #42 tab PRN Reason: Mod-Severe Pain (-08/14) Iron Polysaccharide Complex [Ferrex 150] 150 mg PO DAILYCM #30 cap Polyethylene Glycol 3350 [Miralax] 17 gm PO DAILY #30 packet Aspirin 325 mg PO BIDCM #36 tab Nystatin 500,000 unit PO 4X/DAY #1 bottle Primary Care Physician: Bo Husain III, MD [Primary Care Provider] - Please follow up with your Primary Care Physician in: 1 week. Please Follow Up With: Bobby Arango PA-C When: 2 weeks. Proposed Discharge Date: 12/29/17
--- NOTE | 2017-12-26 20:40 | PCM.DC.SUM ---
Discharge Date and Diagnosis Date of Admission: 12/22/17 Date of Discharge: 12/29/17 - Secondary Discharge Diagnosis Chronic Problems (Last Reviewed 11/06/17 @ 13:33 by Patrick Duenas MD) CAD (coronary artery disease) (Chronic) Osteoarthritis of right hip (Chronic) Diabetes mellitus (Chronic) Hypertension (Chronic) Neuropathic pain (Chronic) Depression (Chronic) Iron deficiency anemia (Chronic) Ischemic cardiomyopathy (Chronic) PVC's (premature ventricular contractions) (Chronic) Nonischemic cardiomyopathy (Chronic) Non-ST elevation (NSTEMI) myocardial infarction (Chronic) Acute respiratory failure (Chronic) Asthma (Chronic) Nonrheumatic mitral (valve) prolapse (Chronic) Nonrheumatic mitral (valve) insufficiency (Chronic) Asthma exacerbation (Chronic) Elevated troponin (Chronic) Benign hypertension (Chronic) Type 2 diabetes mellitus (Chronic) Gastroesophageal reflux disease (Chronic) Hyperlipidemia (Chronic) Hypothyroidism (Chronic) Osteoarthritis (Chronic) Hx of fracture of hip (Chronic) Chronic pain (Chronic) Respiratory failure (Chronic) Acute respiratory failure (Chronic) Non-STEMI (non-ST elevated myocardial infarction) (Chronic) Cardiomyopathy (Chronic) PVT (paroxysmal ventricular tachycardia) (Chronic) Hospital Course and Treatment Imaging Results: 12/22/17 14:09 Diet: Calorie Controlled Food consistency:: Regular Liquid Consistency:: Regular/Thin Is pt able to select menu?: Yes How many daily calories?: 1800 calorie Clinical Impression(s) from Imaging Studies KUB X-Ray 12/22/17 21:40 IMPRESSION: Constipation. Electronically Signed: Julio C Crowe MD at 0:01 EST , Service support , Labs (Last 48 Hours) 12/25/17 12/26/17 06:19 06:41 POC Glucose 161 H 181 H Operations: None Procedures: None Summary of Care Provided: The patient is a 82 year old Female with below past medical history hospitalized for right direct total hip arthroplasty 12/19/[address] Maya, admitted to TCU for rehabilitation, strengthening, prior to discharge home. [] Discharge home with daughter and outpatient physical therapy. Discharge Diet: No Restrictions Discharge Activity: Return to Normal Activity, May Shower, Use Walker Weight Bearing Status: Weight bearing as tolerated Call your doctor if you observe: Fever of 101 or Higher, Inability to urinate, Inability to have a bowel movement, Shortness of breath, Chest pain, Uncontrolled pain Home Medications: Medications to take at Discharge Carvedilol [Coreg (Beta Jin)] 12.5 mg PO BID 11/12/13 Gabapentin [Neurontin] 400 mg PO TID 11/12/13 Levothyroxine [Synthroid] 75 mcg PO DAILY 11/12/13 Metformin HCl [Glucophage] 500 mg PO BID 11/12/13 Omeprazole [Prilosec] 40 mg PO DAILY 11/12/13 Simvastatin [Zocor] 40 mg PO QHS 11/12/13 BuPROPion (SR) [Wellbutrin Sr] 150 mg PO BID 10/17/15 glipizide 5 mg tablet 5 mg PO QDAY 11/02/17 losartan 50 mg tablet 50 mg PO QHS 90 Days #90 tab 11/02/17 budesonide-formoterol HFA 160 mcg-4.5 mcg/actuation aerosol inhaler 2 puff INHALATION BID g 11/06/17 cyclobenzaprine 10 mg tablet 10 mg PO TID PRN 11/06/17 furosemide 20 mg tablet 20 mg PO QDAY 11/06/17 Albuterol IH (ProAir) [Proair Hfa] 2 puff INHALATION Q6H PRN PRN 12/04/17 Albuterol Inhaler [Ventolin Hfa] 1 - 2 puff INHALATION BID PRN 12/04/17 Potassium Chloride [Klor-Con 10] 20 meq PO DAILY 12/04/17 Acetaminophen [Tylenol] 1,000 mg PO Q8 12/22/17 Aspirin 325 mg PO BIDCM #36 tab 12/26/17 Iron Polysaccharide Complex [Ferrex 150] 150 mg PO DAILYCM #30 cap 12/26/17 Nystatin 500,000 unit PO 4X/DAY #1 bottle 12/26/17 Oxycodone [Oxyir] 5 - 10 mg PO Q4H PRN PRN 7 Days #42 tab 12/26/17 Polyethylene Glycol 3350 [Miralax] 17 gm PO DAILY #30 packet 12/26/17 Following Prescrptions Were Given to Patient: Oxycodone [Oxyir] 5 - 10 mg PO Q4H PRN PRN 7 Days #42 tab PRN Reason: Mod-Severe Pain (-08/14) Iron Polysaccharide Complex [Ferrex 150] 150 mg PO DAILYCM #30 cap Polyethylene Glycol 3350 [Miralax] 17 gm PO DAILY #30 packet Aspirin 325 mg PO BIDCM #36 tab Nystatin 500,000 unit PO 4X/DAY #1 bottle Primary Care Physician: Bo Husain III, MD [Primary Care Provider] - Please follow up with your Primary Care Physician in: 1 week. Please Follow Up With: Bobby Arango PA-C When: 2 weeks. Disposition: Home Minutes spent on discharge:: 30 Patient Condition:: Good Meaningful Use Info Meaningful Use Diagnoses (Choose all that apply): None applicable
[2017-12-26] MEDS: Atorvastatin Calcium 20 MG Tablet PO (21:08)
[2017-12-26] MEDS: Losartan Potassium 50 MG Tablet PO (21:08)
[2017-12-27] MEDS: Glucerna Shake 120 ML LIQUID PO (06:04)
[2017-12-27] MEDS: oxyCODONE 5 MG Tablet PO ×2 (06:04→17:14)
[2017-12-27] MEDS: Levothyroxine 75 MCG Tablet PO (06:05)
[2017-12-27] MEDS: Pantoprazole Sodium 40 MG Tablet PO (06:05)
[2017-12-27] MEDS: Acetaminophen 500 MG Tablet 1000 MG PO ×3 (06:05→20:55)
[2017-12-27] MEDS: Gabapentin 400 MG Capsule PO ×3 (06:06→20:55)
[2017-12-27] MEDS: Carvedilol 12.5 MG Tablet PO ×2 (06:06→17:08)
[2017-12-27] MEDS: Senna/Docusate Sodium 1 Tablet 2 TABLET PO ×2 (06:06→17:08)
[2017-12-27] MEDS: NYSTATIN 500,000 UNIT/5 ML UDC 500000 UNIT PO ×4 (06:06→20:55)
[2017-12-27] MEDS: Furosemide 20 MG Tablet PO (06:07)
[2017-12-27 06:41] LABS: Bedside Glucose 164 mg/dL (70-110)
[2017-12-27 06:57] VITALS: O2SAT 95
[2017-12-27] MEDS: Iron Polysaccharide Complex 150 MG CAPSULE PO (07:36)
[2017-12-27] MEDS: Aspirin 325 MG Tablet PO ×2 (07:36→17:07)
[2017-12-27 08:28] VITALS: RESP 18
--- NOTE | 2017-12-27 12:16 | CASEMGMT ---
Social Work Spoke with resident in room about continued physical therapy. Resident reporting to want to do home therapy as this time due to not feeling able to get out of the home for outpatient physical therapy multiple times a week. Resident requesting for a referral to be made to [facility] ([facility]). Resident daughter to provide transportation home for resident at time of discharge. Resident identifying no further needs at this time. Telephone call to [facility], Charo this director social service making referral for physical therapy. Order to be completed. This director social service also communicating that resident will be discharging to daughters home not residents. Charo has the correct address. Proposed discharge date: 12/29/17 PLAN: Discharge home to daughters home and will have home health therapy. Deb KAMARA, SUCTION WORKER
[2017-12-27 15:32] VITALS: BP 126/72; PULSE 89; RESP 20; TEMP 36.3; O2SAT 98
--- NOTE | 2017-12-27 17:18 | NURSING ---
Addendum entered by Gabrielle Ames 12/27/17 18:07: NEW ORDER FOR DOPPLER RLE. PT UPDATED Original Note: Resident complains of increased pain and swelling to Rt leg today. Lt hip and leg tight and warm to touch. Gabrielle MACIAS updated adn will notify Dr Bolton. Polar care in place and oxy given for pain relief.
--- NOTE | 2017-12-27 18:04 | HHNOTE_ITS ---
Home Health Note - Plan Overview of reason of hospitalization: The patient is a 82 year old Female with below past medical history hospitalized for right direct total hip arthroplasty 12/19/[address] Maya, admitted to TCU for rehabilitation, strengthening, prior to discharge home. [] Discharge home with daughter and outpatient physical therapy. Problems: Patient was seen for (Last Reviewed 11/06/17 @ 13:33 by Patrick Duenas MD) Osteoarthritis of right hip (Chronic) Diabetes mellitus (Chronic) Hypertension (Chronic) Neuropathic pain (Chronic) Depression (Chronic) Iron deficiency anemia (Chronic) Ischemic cardiomyopathy (Chronic) Complete List of Medical Problems (Last Reviewed 11/06/17 @ 13:33 by Patrick Duenas MD) CAD (coronary artery disease) (Chronic) Osteoarthritis of right hip (Chronic) Diabetes mellitus (Chronic) Hypertension (Chronic) Neuropathic pain (Chronic) Depression (Chronic) Iron deficiency anemia (Chronic) Ischemic cardiomyopathy (Chronic) PVC's (premature ventricular contractions) (Chronic) Nonischemic cardiomyopathy (Chronic) Non-ST elevation (NSTEMI) myocardial infarction (Chronic) Acute respiratory failure (Chronic) Asthma (Chronic) Nonrheumatic mitral (valve) prolapse (Chronic) Nonrheumatic mitral (valve) insufficiency (Chronic) Asthma exacerbation (Chronic) Elevated troponin (Chronic) Benign hypertension (Chronic) Type 2 diabetes mellitus (Chronic) Gastroesophageal reflux disease (Chronic) Hyperlipidemia (Chronic) Hypothyroidism (Chronic) Osteoarthritis (Chronic) Hx of fracture of hip (Chronic) Chronic pain (Chronic) Respiratory failure (Chronic) Acute respiratory failure (Chronic) Non-STEMI (non-ST elevated myocardial infarction) (Chronic) Cardiomyopathy (Chronic) PVT (paroxysmal ventricular tachycardia) (Chronic) - Requirements and Reasons Disciplines Needed/Ordered: Physical Therapy Reason for Disciplines: Gait Training, Stair Training, Fall Prevention, Home Safety/Equipment Instruction, Balance and/or Posture Training, Transfer Training Related To: Limited/Poor Endurance, Physical Impairments, Unsteady Gait/Balance , Fall Risk Patient is unable to leave the home: Without Aid of Supportive Devices (crutches , cane, wheelchair, walker)
--- NOTE | 2017-12-27 18:05 | VDLE_ITS ---
Reason For Study: RLE swelling RIGHT LEFT GSV is normal. CFV is compressible, spontaneous, phasic, CFV is compressible, spontaneous, phasic, competent, and demonstrates normal competent and demonstrates normal augmentation. augmentation. FV is compressible, spontaneous, phasic, competent and demonstrates normal augmentation. POP V is compressible, spontaneous, phasic, competent and demonstrates normal augmentation. T/P Trunk is compressible. PTV is compressible. RT PerV is compressible. Limited visibility of calf veins. Procedure Exam performed portable in patient room. The study was technically difficult. The exam was diagnostic. A preliminary report was called and/or faxed to TCU. Interpretation Summary There is no evidence of right lower extremity deep vein thrombosis. Limited ability to image the right calf veins--technically difficult examination. Normal flow patterns left common femoral vein. Ordering Physician: John Paul Bolton Referring Physician: Camilo Maya Performed By: Gina Negro, BRANDEE, RVT
[2017-12-27] MEDS: Losartan Potassium 50 MG Tablet PO (20:55)
[2017-12-27] MEDS: Atorvastatin Calcium 20 MG Tablet PO (20:55)
[2017-12-28] MEDS: Furosemide 20 MG Tablet PO (06:01)
[2017-12-28] MEDS: Carvedilol 12.5 MG Tablet PO ×2 (06:01→16:46)
[2017-12-28] MEDS: oxyCODONE 5 MG Tablet PO ×3 (06:02→19:57)
[2017-12-28] MEDS: Levothyroxine 75 MCG Tablet PO (06:02)
[2017-12-28] MEDS: Gabapentin 400 MG Capsule PO ×3 (06:02→19:56)
[2017-12-28] MEDS: NYSTATIN 500,000 UNIT/5 ML UDC 500000 UNIT PO ×4 (06:02→19:56)
[2017-12-28] MEDS: Senna/Docusate Sodium 1 Tablet 2 TABLET PO ×2 (06:02→16:47)
[2017-12-28] MEDS: Acetaminophen 500 MG Tablet 1000 MG PO ×3 (06:02→22:17)
[2017-12-28] MEDS: Pantoprazole Sodium 40 MG Tablet PO (06:02)
[2017-12-28] MEDS: Polyethylene Glycol 3350 17 GM PACKET PO (06:04)
[2017-12-28] MEDS: Glucerna Shake 120 ML LIQUID PO (06:05)
[2017-12-28 07:06] LABS: Bedside Glucose 181 mg/dL (70-110)
[2017-12-28 07:25] VITALS: O2SAT 93
[2017-12-28] MEDS: Aspirin 325 MG Tablet PO ×2 (07:39→16:45)
[2017-12-28] MEDS: Iron Polysaccharide Complex 150 MG CAPSULE PO (07:39)
--- NOTE | 2017-12-28 11:40 | NURSING ---
DOPPLER DONE TO RLE, NEGATIVE FOR BLOOD CLOTS. PT UPDATED.
[2017-12-28 15:23] VITALS: BP 116/65; PULSE 85; RESP 20; TEMP 36.1; O2SAT 98
[2017-12-28] MEDS: Losartan Potassium 50 MG Tablet PO (19:56)
[2017-12-28] MEDS: Atorvastatin Calcium 20 MG Tablet PO (19:56)
[2017-12-28] MEDS: Nystatin Powder 15gm Bottle 1 APPLIC TOPICAL (22:19)
[2017-12-29 05:56] LABS: Bedside Glucose 95 mg/dL (70-110)
[2017-12-29 06:00] VITALS: BP 129/72; PULSE 79; RESP 15; TEMP 36.3; O2SAT 94
[2017-12-29] MEDS: oxyCODONE 5 MG Tablet PO (06:24)
[2017-12-29] MEDS: Senna/Docusate Sodium 1 Tablet 2 TABLET PO (06:25)
[2017-12-29] MEDS: Pantoprazole Sodium 40 MG Tablet PO (06:25)
[2017-12-29] MEDS: Levothyroxine 75 MCG Tablet PO (06:25)
[2017-12-29] MEDS: Acetaminophen 500 MG Tablet 1000 MG PO (06:26)
[2017-12-29] MEDS: Furosemide 20 MG Tablet PO (06:26)
[2017-12-29] MEDS: Carvedilol 12.5 MG Tablet PO (06:26)
[2017-12-29] MEDS: Gabapentin 400 MG Capsule PO (06:27)
[2017-12-29] MEDS: NYSTATIN 500,000 UNIT/5 ML UDC 500000 UNIT PO (06:29)
[2017-12-29] MEDS: Polyethylene Glycol 3350 17 GM PACKET PO (06:34)
[2017-12-29] MEDS: Nystatin Powder 15gm Bottle 1 APPLIC TOPICAL (06:43)
[2017-12-29] MEDS: Glucerna Shake 120 ML LIQUID PO (06:50)
[2017-12-29 06:52] VITALS: PULSE 79; RESP 15; O2SAT 94
[2017-12-29 07:38] VITALS: O2SAT 92
[2017-12-29] MEDS: Aspirin 325 MG Tablet PO (08:19)
[2017-12-29] MEDS: Iron Polysaccharide Complex 150 MG CAPSULE PO (08:19)
--- NOTE | 2017-12-31 07:51 | MDS.RN ---
Pain interview for RISA 12/29/17 was completed 12/27/17.
--- NOTE | 2018-01-04 11:29 | MDS.RN ---
Information for the mds was obtained from review of the clinical record, interview of resident, staff, and direct observation of resident's care.
== END 2017-12-29 11:26 | disposition home health service (06) | DRG 560 ==
PROVIDERS: Admitting Provider Family Medicine Geriatric Medicine; Family Provider Family Medicine; PCP Family Medicine; Visit Provider Family Medicine Geriatric Medicine
DX: Z47.1 Aftercare following joint replacement surgery (principal); J96.10 Chronic respiratory failure, unspecified whether with hypoxia or hypercapnia; E11.9 Type 2 diabetes mellitus without complications; J44.9 Chronic obstructive pulmonary disease, unspecified; I25.5 Ischemic cardiomyopathy; E03.9 Hypothyroidism, unspecified; E78.5 Hyperlipidemia, unspecified; D50.9 Iron deficiency anemia, unspecified; I25.10 Atherosclerotic heart disease of native coronary artery without angina pectoris; K21.9 Gastro-esophageal reflux disease without esophagitis; Z96.641 Presence of right artificial hip joint; J45.909 Unspecified asthma, uncomplicated; I10 Essential (primary) hypertension; F32.9 Major depressive disorder, single episode, unspecified; E87.6 Hypokalemia; G89.29 Other chronic pain; I25.2 Old myocardial infarction; Z79.899 Other long term (current) drug therapy; Z79.84 Long term (current) use of oral hypoglycemic drugs; Z79.51 Long term (current) use of inhaled steroids
CPT/HCPCS: 36415; 74018; 80048; 82962; 85025; 93971; 97110; 97116; 97161; 97166; 97530; 97535; 97802

== ENCOUNTER 2018-03-02 13:31 | Emergency (ER) | payer MEDICARE, OTHER, SELFPAY ==
[2018-03-02 13:32] VITALS: BP 133/70; PULSE 76; RESP 18; TEMP 36.8; O2SAT 94; BMI 31.2
--- NOTE | 2018-03-02 13:57 | CT_ITS ---
STUDY: CT BRAIN WITHOUT CONTRAST REASON FOR EXAM: Female, 82 years old. Trapped and fell RADIATION DOSAGE (If Supplied By Facility): CTDIvol = ( 44.99 ) mGy, DLP = ( 779.24 ) mGycm TECHNIQUE: Transaxial CT imaging of the brain was performed without administration of intravenous contrast material. Individualized dose optimization techniques were used for this CT. COMPARISON: June 27, 2013 FINDINGS: There is an age-indeterminate calcification of the hard palate possible ostial chondroma. This is partially visualized on the restaurant front manager film prior study. Normal calvarium. There is mild cerebral atrophy with widening of the extra-axial spaces and ventricular dilatation. There are areas of decreased attenuation within the white matter tracts of the supratentorial brain, consistent with microvascular disease changes. There are small punctate calcifications of the basal ganglia which are seen in the aging brain as a normal variant. Normal brainstem. There is mild cerebellar atrophy. There is no intracranial hemorrhage. There are no findings of an acute ischemic infarction. Normal visualized paranasal sinuses. CT/Brain/Head without Contrast IMPRESSION: Atrophy no visualized evidence of acute hemorrhage infarct or edema. Chronic well-corticated calcification of the hard palate which may represent bony hypertrophy or osteochondroma. Electronically Signed: Chio Snell MD at 14:59 EDT Tel , Service support ,
--- NOTE | 2018-03-02 13:58 | CT_ITS ---
STUDY: CT CERVICAL SPINE WITHOUT CONTRAST REASON FOR EXAM: Female, 82 years old. RADIATION DOSAGE (If Supplied By Facility): CTDIvol = ( 23.60 ) mGy, DLP = ( 475.96 ) mGycm TECHNIQUE: High resolution transaxial imaging was performed without contrast material. Sagittal and coronal images were reconstructed. Individualized dose optimization techniques were used for this CT. COMPARISON: None FINDINGS: Straightening of normal cervical lordosis. Craniocervical junction appears unremarkable. The atlantooccipital joints are within normal limits. Atlantodental index is within normal limits. Retrodental calcifications likely related with degenerative changes. Multilevel neural foraminal narrowing including C3-C4, C4-C5, C5-C6 and C6-C7 levels. Anterior and posterior osteophytic spurring. Degenerative disc disease at C4-C5, C5-C6 and C6-7 levels. No paraspinal soft tissue mass or fluid collections. The dens appears intact. Occipital condyles are within normal limits. Vascular calcifications of the carotid arteries. Left apical lung scarring however left upper lobe nodule is not excluded. Please consider nonemergent chest CT. IMPRESSION: No evidence for acute cervical spine fractures. Cervical spondylosis. Please see above incidental findings and recommendations. Electronically Signed: Van Rehman, at 15:09 EDT Tel , Service support , CT/Spine Cervical without Contras
[2018-03-02] MEDS: Diphth,Pertuss(Acell),Tet Vac 0.5 ML Vial IM (14:07)
--- NOTE | 2018-03-02 14:07 | NURSING ---
CALLED [facility]. DR JOSEPH TALKED TO DR WEEKS ABOUT ACCEPTING PATIENT
[2018-03-02] MEDS: Lidocaine/Epi/Tetracaine 50 ML 1 APPLIC TOPICAL (14:08)
[2018-03-02 14:18] LABS: Absolute Lymphocyte Count 1.35 X10^3/ul (0.83-4.51); Basophil# 0.04 X10^3/uL; Basophil% 0.6 % (0-1); Eosinophil# 0.16 X10^3/uL; Eosinophils% 2.2 % (0-5); Hematocrit 45.5 % (37-47); Hemoglobin 14.3 g/dl (12.0-15.0); Lymphocyte # 1.35 X10^3/ul (4.0); Lymphocyte % 18.9 % (19-41); Mean Corp Hgb Conc 31.4 g/gl (32-36); Mean Corpuscular Hgb 29.7 pg (27.0-32.0); Mean Corpuscular Volume 94.4 fL (81-99); Mean Platelet Vol. 10.4 fl (6.2-12.0); Monocyte# 0.59 X10^3/uL; Monocyte% 8.2 % (0-10); Neutrophil # 5.01 X10^3/uL (2.7-7.7); Platelet Count 265 K/mm3 (150-450); RBC Distribution Width CV 13.1 % (11.6-14.6); RBC Distribution Width SD 45.4 fl (35.1-43.9); Red Blood Count 4.82 M/mm3 (4.2-5.4); White Blood Count 7.2 K/mm3 (4.4-11.0)
[2018-03-02 14:19] LABS: POSITIVE COUNT NO; POSITIVE DIFFERENTIAL NO; POSITIVE MORPHOLOGY NO
--- NOTE | 2018-03-02 14:19 | ED.VISSUMM ---
- ER Visit Summary Date of Service: 03/02/18 Chief Complaint: Fall History of Present Illness: The patient is a 82 F here with family mechanical fall at a restaurant around 12:30 PM today, 90 minutes ago. Ambulates with a cane. state there is uneven barbie when she tripped falling with her hands up hitting her face. Denies any loss of consciousness. No headache or neck pain. No back pain. Able to ambulate afterwards. Has bilateral total hip arthroplasties along with right knee arthroplasty. States there is tingling to bilateral upper arms dorsally. She is right-handed. Tetanus unknown. She is on full dose aspirin therapy. Past medical history: Cardiomyopathy, end STEMI, asthma, diabetes, hypertension, hypercholesteremia, GERD, neuropathy, hypothyroid Physical Examination: General: Alert and oriented ?3, no acute distress HEENT: Normocephalic, no scalp hematoma. No hemotympanum. 1.5 cm laceration horizontally upper mid lips right at the vermilion. No active bleeding. Moist mucosa membranes. No dental tenderness or loosening. Neck: supple, No midline tenderness or step-offs. Cardiovascular: Regular rate and rhythm, no murmurs Respiratory: Normal breath sounds, symmetric, no distress Abdomen: Soft, nontender, nondistended Extremities: Nontender, no edema, pulses intact ?4 Neuro: Upper extremity evaluation: There was hypersensitivity bilateral C7 dermatomes. There is weakening to elbow extension on the right. 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 Lower extremity strength was intact and symmetric. Test Results: CT head and neck: Pending final read, however my read notes no intracranial process and degenerative changes C3-C5. Hemoglobin 14.3, WBC 7.2. INR 1.0. Platelets 265. Emergency Department Course and Treatment: Patient vital signs stable. Patient exam and history concerns for central cord syndrome with hypersensitivity bilateral C7 dermatomes on the weakness to the right upper extremity. She is placed in a c-collar maintained. CT head and neck was ordered. After evaluation I did speak with Jenifer de la o, ED physician Dr. rSivastava, discuss concerns, she is accepted to the emergency department for trauma evaluation. Pending final read of imagings, however my read appears to have degenerative changes at C3-C5, no gross fracture was noted. No intracranial process. Basic labs and coags ordered and pending. Patient's lip laceration was repaired with 4, 6-0 simple interrupted nylon sutures. Tetanus updated. 1515: Results of imagings reviewed and read by radiology. No intracranial process. Significant degenerative changes from C3-C7 per radiology. No fractures. Basic labs stable. Creatinine 1.4, compared from previous labs chronic findings. Treatment Plan: [] Disposition: Transfer to [facility] Impression: 1. Close head injury 2. Central cord syndrome 3. Lip laceration 4. Tetanus update This note was generated with [employer] dictation software. It may contain incorrect words, spelling, and punctuation that were not noted in review of the chart prior to signing ED Disposition - Plan for ED Patient: Disposition: [facility] Chief Complaint: Fall Diagnosis: Closed head injury, Central cord syndrome at C7 level of cervical spinal cord, initial encounter, Lip laceration, Tetanus Referrals: Bo Husain III, MD [Primary Care Provider] -
--- NOTE | 2018-03-02 14:22 | ED.DCSUM_ITS ---
- ER Visit Summary Date of Service: 03/02/18 Chief Complaint: Fall History of Present Illness: The patient is a 82 F here with family mechanical fall at a restaurant around 12:30 PM today, 90 minutes ago. Ambulates with a cane. state there is uneven barbie when she tripped falling with her hands up hitting her face. Denies any loss of consciousness. No headache or neck pain. No back pain. Able to ambulate afterwards. Has bilateral total hip arthroplasties along with right knee arthroplasty. States there is tingling to bilateral upper arms dorsally. She is right-handed. Tetanus unknown. She is on full dose aspirin therapy. Past medical history: Cardiomyopathy, end STEMI, asthma, diabetes, hypertension , hypercholesteremia, GERD, neuropathy, hypothyroid Physical Examination: General: Alert and oriented ?3, no acute distress HEENT: Normocephalic, no scalp hematoma. No hemotympanum. 1.5 cm laceration horizontally upper mid lips right at the vermilion. No active bleeding. Moist mucosa membranes. No dental tenderness or loosening. Neck: supple, No midline tenderness or step-offs. Cardiovascular: Regular rate and rhythm, no murmurs Respiratory: Normal breath sounds, symmetric, no distress Abdomen: Soft, nontender, nondistended Extremities: Nontender, no edema, pulses intact ?4 Neuro: Upper extremity evaluation: There was hypersensitivity bilateral C7 dermatomes. There is weakening to elbow extension on the right. 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 Lower extremity strength was intact and symmetric. Test Results: CT head and neck: Pending final read, however my read notes no intracranial process and degenerative changes C3-C5. Hemoglobin 14.3, WBC 7.2. INR 1.0. Platelets 265. Emergency Department Course and Treatment: Patient vital signs stable. Patient exam and history concerns for central cord syndrome with hypersensitivity bilateral C7 dermatomes on the weakness to the right upper extremity. She is placed in a c-collar maintained. CT head and neck was ordered. After evaluation I did speak with Jenifer de la o, ED physician Dr. Srivastava, discuss concerns, she is accepted to the emergency department for trauma evaluation. Pending final read of imagings, however my read appears to have degenerative changes at C3-C5, no gross fracture was noted. No intracranial process. Basic labs and coags ordered and pending. Patient's lip laceration was repaired with 4, 6-0 simple interrupted nylon sutures. Tetanus updated. 1515: Results of imagings reviewed and read by radiology. No intracranial process. Significant degenerative changes from C3-C7 per radiology. No fractures. Basic labs stable. Creatinine 1.4, compared from previous labs chronic findings. Treatment Plan: [] Disposition: Transfer to [facility] Impression: 1. Close head injury 2. Central cord syndrome 3. Lip laceration 4. Tetanus update This note was generated with [employer] dictation software. 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
[2018-03-02 14:26] LABS: Prothrombin Time (Protime)PT. 13.4 SECONDS (11.7-14.9)
[2018-03-02 14:27] LABS: Partial Thromboplast Time 29.2 Seconds (24.1-36.2)
[2018-03-02 14:59] VITALS: BP 127/77; PULSE 77; RESP 10; O2SAT 97
[2018-03-02 15:00] VITALS: BP 130/74; PULSE 78; RESP 17; O2SAT 95
--- NOTE | 2018-03-02 15:05 | NURSING ---
[facility]
[2018-03-02 15:06] LABS: Anion Gap 6 (5-15); BUN 34 mg/dL (7-18); BUN/Creat Ratio 24.1 RATIO (10-20); Calcium,Total 8.9 mg/dL (8.5-10.1); Chloride 106 mmol/L (98-107); Creatinine, Serum 1.41 mg/dL (0.55-1.02); EST Glomerular Filtration Rate 38 mL/min (>60); Est Glom Filt Rate - Afr Amer 46 mL/min (>60); Estimated Creatinine Clearance 28.63 ml/min; Glucose 110 mg/dL (74-106); Potassium 4.4 mmol/L (3.5-5.1); Sodium Level 141 mmol/L (136-145)
[2018-03-02 15:19] VITALS: BP 123/74; PULSE 77; RESP 18; O2SAT 96
== END 2018-03-02 16:04 | disposition short-term general hospital (02) ==
PROVIDERS: Emergency Provider Emergency Medicine; Family Provider Family Medicine; PCP Family Medicine
DX: S09.90XA Unspecified injury of head, initial encounter (principal); S01.511A Laceration without foreign body of lip, initial encounter; W01.198A Fall on same level from slipping, tripping and stumbling with subsequent striking against other object, initial encounter; Y93.89 Activity, other specified; Y92.511 Restaurant or cafe as the place of occurrence of the external cause; Y99.9 Unspecified external cause status; Z79.82 Long term (current) use of aspirin; I25.2 Old myocardial infarction; J45.909 Unspecified asthma, uncomplicated; E11.9 Type 2 diabetes mellitus without complications; I10 Essential (primary) hypertension; E78.00 Pure hypercholesterolemia, unspecified; K21.9 Gastro-esophageal reflux disease without esophagitis; E03.9 Hypothyroidism, unspecified; Z23 Encounter for immunization; I42.9 Cardiomyopathy, unspecified; G62.9 Polyneuropathy, unspecified; Z96.643 Presence of artificial hip joint, bilateral; Z96.651 Presence of right artificial knee joint
CPT/HCPCS: 12011; 70450; 72125; 80048; 85025; 85610; 85730; 90715; 99285; A4216

== ENCOUNTER 2018-06-24 10:38 | Day surgery (SDC) | payer MEDICARE, OTHER, SELFPAY ==
[2018-06-24 10:56] VITALS: BP 149/79; PULSE 70; RESP 16; TEMP 36.3; O2SAT 98; BMI 29.9
[2018-06-24 11:10] LABS: Bedside Glucose 161 mg/dL (70-110)
[2018-06-24] MEDS: MethylPREDNISolone Acetate 80 MG/ML Vial (11:58)
[2018-06-24] MEDS: Bupivacaine 0.25% 30 ML Vial (11:59)
[2018-06-24 12:14] VITALS: BP 118/66; BP 149/79; PULSE 71; RESP 14; TEMP 36.2; O2SAT 95
[2018-06-24 12:20] VITALS: BP 129/65; BP 149/79; PULSE 66; RESP 16; O2SAT 96
[2018-06-24 12:25] VITALS: BP 121/73; BP 149/79; PULSE 70; RESP 16; O2SAT 98
[2018-06-24 12:28] VITALS: BP 112/68; BP 149/79; PULSE 68; RESP 16; TEMP 36.3; O2SAT 95
[2018-06-24 13:16] VITALS: BP 149/79
--- NOTE | 2018-06-24 13:51 | PCM.OPRPT ---
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 Risks and benefits of the procedure were explained. The patient understood, agreed to our procedure, and informed consent was obtained. IV inserted per routine protocol. The patient was taken to the operating room, placed in a supine position the right groin area was prepped and draped in a sterile fashion using iodine ?3 under direct visualization with ultrasound guidance the iliopsoas tendon and bursa are visualized the skin and subcutaneous tissue and size approximately 3 cc of 1% lidocaine using a 25-gauge regular needle under direct visualization with ultrasound guidance using a 22-gauge 3-1/2 inch needle using the in plane technique the needle was advanced under direct visualization with ultrasound guidance towards the iliopsoas bursa avoiding vascular structures surrounding the area after confirmation with ultrasound guidance a and negative aspiration for blood a total of 10 cc of preservative-free 0.25% Marcaine with 40 mg of Depo-Medrol were injected in and around the iliopsoas bursa to the right the spread of the medication was visualized with direct visualization with ultrasound, the needles were then removed intact. The patient experienced no signs or symptoms intrathecal, intravascular injection. The patient experienced no paraesthesia. The procedure was completed without any apparent difficult, any complication. The patient appeared to tolerate well. ASSESSMENT AND PLAN: This is a 83-year-old female with right sided iliopsoas bursitis status post right hip iliopsoas bursa steroid injection under ultrasound guidance. The patient will continue her current medications. The patient will follow in approximately 2 weeks for possible repeat of the procedure if indicated.
== END 2018-06-24 13:17 | disposition home or self-care (01) ==
LOC: SDC 10:39 → AC 10:41
PROVIDERS: Family Provider Family Medicine; PCP Family Medicine; Visit Provider Anesthesiology Pain Medicine
PROC: 3E0U3GC Introduction of Other Therapeutic Substance into Joints, Percutaneous Approach (ICD-10-PCS; CPT 27096; principal; 2018-06-24 11:45)
DX: M70.71 Other bursitis of hip, right hip (principal); M96.1 Postlaminectomy syndrome, not elsewhere classified; M51.26 Other intervertebral disc displacement, lumbar region; Q76.2 Congenital spondylolisthesis; M43.10 Spondylolisthesis, site unspecified; M51.37 Other intervertebral disc degeneration, lumbosacral region; M70.60 Trochanteric bursitis, unspecified hip; M47.27 Other spondylosis with radiculopathy, lumbosacral region; M53.3 Sacrococcygeal disorders, not elsewhere classified; M46.1 Sacroiliitis, not elsewhere classified; M48.07 Spinal stenosis, lumbosacral region; I10 Essential (primary) hypertension; E11.9 Type 2 diabetes mellitus without complications; E78.00 Pure hypercholesterolemia, unspecified; J45.909 Unspecified asthma, uncomplicated; F41.9 Anxiety disorder, unspecified; F32.9 Major depressive disorder, single episode, unspecified; E06.9 Thyroiditis, unspecified; K21.9 Gastro-esophageal reflux disease without esophagitis; Z86.2 Personal history of diseases of the blood and blood-forming organs and certain disorders involving the immune mechanism; Z78.0 Asymptomatic menopausal state; Z96.651 Presence of right artificial knee joint; Z96.643 Presence of artificial hip joint, bilateral; Z79.891 Long term (current) use of opiate analgesic; Z79.82 Long term (current) use of aspirin; Z79.84 Long term (current) use of oral hypoglycemic drugs; Z79.899 Other long term (current) drug therapy
CPT/HCPCS: 20551; 82962; J7120

== ENCOUNTER 2018-12-23 10:18 | Day surgery (SDC) | payer MEDICARE, OTHER, SELFPAY ==
[2018-12-23] VITALS (8 sets, daily range): BP systolic 84–131; BP diastolic 51–81; PULSE 63–71; RESP 14–18; TEMP 36.3–36.9; O2SAT 94–98; BMI 32.1
[2018-12-23 11:01] LABS: Bedside Glucose 112 mg/dL (70-110)
[2018-12-23] MEDS: MethylPREDNISolone Acetate 80 MG/ML Vial (11:33)
[2018-12-23] MEDS: Bupivacaine 0.25% 30 ML Vial (11:33)
--- NOTE | 2018-12-23 12:10 | OP.PCM_ITS ---
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 Risks and benefits of the procedure were explained. The patient understood, agreed to our procedure, and informed consent was obtained. IV inserted per routine protocol. The patient was taken to the operating room, placed in a supine position the right groin area was prepped and draped in a sterile fashion using iodine ?3 under direct visualization with ultrasound guidance the iliopsoas tendon and bursa are visualized the skin and subcutaneous tissue and size approximately 3 cc of 1% lidocaine using a 25-gauge regular needle under direct visualization with ultrasound guidance using a 22-gauge 3- 1/2 inch needle using the in plane technique the needle was advanced under direct visualization with ultrasound guidance towards the iliopsoas bursa avoiding vascular structures surrounding the area after confirmation with ultrasound guidance a and negative aspiration for blood a total of 10 cc of preservative-free 0.25% Marcaine with 40 mg of Depo-Medrol were injected in and around the iliopsoas bursa to the right the spread of the medication was visualized with direct visualization with ultrasound, the needles were then removed intact. The patient experienced no signs or symptoms intrathecal, intravascular injection. The patient experienced no paraesthesia. The procedure was completed without any apparent difficult, any complication. The patient appeared to tolerate well. ASSESSMENT AND PLAN: This is a 83-year-old female with right sided iliopsoas bursitis status post right hip iliopsoas bursa steroid injection under ultrasound guidance. The patient will continue her current medications. The patient will follow in approximately 2 weeks for reevaluation.
== END 2018-12-23 12:49 | disposition home or self-care (01) ==
LOC: SDC 10:21 → AC 10:21
PROVIDERS: Family Provider Family Medicine; PCP Family Medicine; Referring Provider Anesthesiology Pain Medicine; Visit Provider Anesthesiology Pain Medicine
PROC: 3E0U3GC Introduction of Other Therapeutic Substance into Joints, Percutaneous Approach (ICD-10-PCS; CPT 27096; principal; 2018-12-23 11:45)
DX: M70.71 Other bursitis of hip, right hip (principal); I10 Essential (primary) hypertension; E11.9 Type 2 diabetes mellitus without complications; E78.00 Pure hypercholesterolemia, unspecified; M96.1 Postlaminectomy syndrome, not elsewhere classified; M47.817 Spondylosis without myelopathy or radiculopathy, lumbosacral region; M51.26 Other intervertebral disc displacement, lumbar region; Q76.2 Congenital spondylolisthesis; M51.37 Other intervertebral disc degeneration, lumbosacral region; M46.1 Sacroiliitis, not elsewhere classified; M48.07 Spinal stenosis, lumbosacral region; M53.3 Sacrococcygeal disorders, not elsewhere classified; Z79.891 Long term (current) use of opiate analgesic; Z79.82 Long term (current) use of aspirin
CPT/HCPCS: 27096; 82962; J7120

== ENCOUNTER → 2019-02-10 | Outpatient (CLI) | payer MEDICARE, OTHER, SELFPAY ==
[2019-01-14 14:38] VITALS: BMI 29.7
--- NOTE | 2019-02-10 12:40 | ECHOD_ITS ---
Reason For Study: HTN Procedure This was a 2D Doppler, Color Flow transthoracic echocardiogram. Exam performed in department. Left Ventricle Normal LV size. Left ventricular systolic function is lower limits of normal. The estimated ejection fraction is 47 %. Stage 2 diastolic dysfunction. No regional wall motion abnormalities noted. Right Ventricle Normal RV size. Normal systolic function. Atria The left atrium is moderately enlarged. Normal right atrium. Mitral Valve Bileaflet diffuse mitral valve thickening. Mild-Moderate (1-2+) mitral valve insufficiency. Tricuspid Valve Normal tricuspid valve. Mild to moderate (1-2+) tricuspid valve insufficiency. Pulmonary artery systolic pressure is 42 mmHg. Aortic Valve Trisinus/trileaflet aortic valve. Pulmonic Valve Normal pulmonic valve. Great Vessels Normal aortic root. The pulmonary artery is normal size. Normal inferior vena cava. Pericardium/Pleural No pericardial effusion. MMode/2D Measurements & Calculations LVIDd: 5.2 cm IVSd: 0.87 cm Ao root diam: 3.0 cm LVIDs: 3.7 cm LVPWd: 0.94 cm RVDd: 2.9 cm FS: 28.9 % LAV(MOD-bp): 101.7 ml LVAd ap4: 29.4 cm2 SV(MOD-sp4): 44.4 ml LAV(MOD-bp) Indexed: 53.1 ml/m2 EDV(MOD-sp4): 90.9 ml LAV(MOD-sp2): 71.6 ml EDV(sp4-el): 95.9 ml LAV(MOD-sp4): 115.7 ml LVAs ap4: 19.1 cm2 ESV(MOD-sp4): 46.4 ml ESV(sp4-el): 48.2 ml EF(MOD-sp4): 48.9 % EF(sp4-el): 49.7 % SV(sp4-el): 47.6 ml LA A4 area: 32.1 cm2 LA dimension(2D): 5.1 cm RA A4 area: 17.6 cm2 Time Measurements MV dec time: 0.15 sec Doppler Measurements & Calculations MV E max chintan: 130.6 cm/sec Lat Peak E' Chintan: 16.5 cm/sec Med Peak E' Chintan: 5.3 cm/sec MV A max chintan: 85.3 cm/sec E/E' lat: 7.9 E/E' med: 24.7 MV E/A: 1.5 Ao V2 max: 102.8 cm/sec LV V1 max: 75.2 cm/sec PA V2 max: 94.0 cm/sec Ao max P.2 mmHg LV V1 max P.3 mmHg PI end-d chintan: 138.2 cm/sec TR max chintan: 305.1 cm/sec TR max P.5 mmHg Interpretation Summary Normal LV size. Left ventricular systolic function is lower limits of normal. The estimated ejection fraction is 47 %. Stage 2 diastolic dysfunction. Mild-Moderate (1-2+) mitral valve insufficiency. Mild to moderate (1-2+) tricuspid valve insufficiency. Compared to prior study, there is no significant change. Ordering Physician: Patrick Duenas Referring Physician: DANIEL SALEEM Performed By: Perla Hernandez, RDCS, RVT
== END | disposition home or self-care (01) ==
LOC: CVS 12:39
PROVIDERS: Family Provider Family Medicine; PCP Family Medicine; Referring Provider Internal Medicine Cardiovascular Disease; Visit Provider Internal Medicine Cardiovascular Disease
DX: I25.10 Atherosclerotic heart disease of native coronary artery without angina pectoris (principal)
CPT/HCPCS: 93306

== ENCOUNTER → 2019-09-01 | Outpatient (CLI) | payer MEDICARE, OTHER, SELFPAY ==
[2019-07-17 12:48] VITALS: BMI 31.1
--- NOTE | 2019-09-01 12:35 | ART_ITS ---
Reason For Study: PVD Procedure A bilateral lower extremity continuous wave Doppler with analog waveform analysis,segmental pressures,and ankle brachial indexes without exercise. Left Segmental Pressures Left brachial= 130mmHg. Left posterior tibial artery = 192mmHg. Left dorsalis pedis artery = 152mmHg. Left digit = 98 mmHg. The left dorsalis pedis waveforms are triphasic. The left posterior tibial artery waveforms are triphasic. Right Segmental Pressures Right brachial= 132mmHg. Right dorsalis pedis artery = 151mmHg. Right digit = 87 mmHg. FURS SALESPERSON is noncompressible. The right dorsalis pedis waveforms are triphasic. The right posterior tibial artery waveforms are triphasic. Indices The right ankle brachial index by the dorsalis pedis is 1.14. The right digital-brachial index is .66. FURS SALESPERSON is noncompressible. The left ankle brachial index by the posterior tibial artery is 1.45. The left ankle brachial index by the dorsalis pedis is 1.15. The left digital-brachial index is .74. Interpretation Summary Triphasic Doppler waveforms are noted at ankle level bilaterally. Pulse-volume recordings appear satisfactory at low-thigh, calf, and ankle levels bilaterally, but slightly diminished at digital level bilaterally. The resting right ankle-brachial index is normal. The resting left ankle-brachial index is supra-normal. The right digital-brachial index is mildly diminished. The left digital- brachial index is normal. There is evidence of arterial calcification at ankle level bilaterally. However, arterial flow appears normal at ankle level bilaterally, and at digital level on the left. There is evidence of mild, distal, small-vessel arterial occlusive disease at digital level on the right. Ordering Physician: Charles Melendez Performed By: JOANN LÓPEZ RVT
== END | disposition home or self-care (01) ==
LOC: CVS 12:34
PROVIDERS: Family Provider Family Medicine; PCP Family Medicine; Referring Provider Podiatrist; Visit Provider Podiatrist
DX: I73.89 Other specified peripheral vascular diseases (principal)
CPT/HCPCS: 93923

== ENCOUNTER 2020-08-03 13:43 | Emergency (ER) | payer MEDICARE, OTHER, SELFPAY ==
[2019-07-17 12:48] VITALS: BMI 31.1
[2020-08-03 13:44] VITALS: BP 135/89; PULSE 64; RESP 16; TEMP 36.3; O2SAT 95; BMI 30.7
--- NOTE | 2020-08-03 13:56 | CT_ITS ---
STUDY: CT BRAIN WITHOUT CONTRAST REASON FOR EXAM: Female, 85 years old. FALL 1 WEEK AGO, BUMPED HEAD RADIATION DOSAGE (If Supplied By Facility): CTDIvol = ( 44.99 ) mGy, DLP = ( 796.11 ) mGycm TECHNIQUE: Transaxial CT imaging of the brain was performed without administration of intravenous contrast material. Individualized dose optimization techniques were used for this CT. COMPARISON: Comparison is made with prior study dated 03/02/2018. FINDINGS: Normal soft tissue structures. Normal calvarium. There is mild cerebral atrophy with widening of the extra-axial spaces and ventricular dilatation. Normal white matter tracts of the cerebral hemispheres. There are small punctate calcifications of the basal ganglia which are seen in the aging brain as a normal variant. Normal brainstem. There is mild cerebellar atrophy. There is no intracranial hemorrhage. There are no findings of an acute ischemic infarction. Atherosclerotic calcification of the vertebral arteries and cavernous portions of the internal carotid arteries bilaterally. Normal visualized paranasal sinuses. CT/Brain/Head without Contrast IMPRESSION: Chronic involutional changes of the brain. Electronically Signed: Felix Ziegler, at 14:25 EDT , Service support ,
--- NOTE | 2020-08-03 13:58 | ED.DCSUM_ITS ---
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 No loss of conscious. She continues to have headache and have skin sensitivity. She she also injured her pelvis. She went to a urgent care where she had x-rays that reportedly were negative for fracture and is supposed to follow-up with orthopedics for possible muscle strain. Because she continues to have headaches daughter wanted her evaluated. Takes a baby aspirin but no other anticoagulants. No vomiting. No vision or hearing changes. States her arms and her coordination appeared moshe l. - Past Medical History (1) Essential (primary) hypertension Status: Chronic (2) Hyperlipidemia Status: Chronic (3) Non-ST elevation (NSTEMI) myocardial infarction Status: Chronic (4) Non-rheumatic tricuspid valve insufficiency Status: Chronic (5) Nonischemic cardiomyopathy Status: Chronic (6) Nonrheumatic mitral (valve) insufficiency Status: Chronic (7) PVT (paroxysmal ventricular tachycardia) Status: Chronic (8) Secondary pulmonary arterial hypertension Status: Chronic Past Medical History - Allergies and Home Meds Allergies/Adverse Reactions: Allergies No Known Allergies Allergy (Verified 08/03/20 13:44) Primary Care Physician: Bo Husain III, MD [Primary Care Provider] - 1 Week if not improving Surgical History: cataract, total hip arthroplasty - Left hip hemiarthroplasty, Right total hip arthroplasty., total knee arthroplasty - Right., - - Bilateral bunionectomy, right ring finger, back, microdiskectomy. Smoking Status: Never smoker - Family History Maternal Family History: Family History (Last Reviewed 07/17/19 @ 13:29 by Charo PUGH, PA) Sister Asthma Colon cancer Diabetes Brother Cancer Family History: Reports: No pertinent history, - Paternal Family History: Family History (Last Reviewed 07/17/19 @ 13:29 by Charo PUGH, PA) Sister Asthma Colon cancer Diabetes Brother Cancer Family History: Reports: No pertinent history Review of Systems General: Denies: Chills, Fever, Sweats Eyes: Denies: Visual changes - bilaterally, Diplopia ENT: Denies: Rhinorrhea, Sore throat Cardiovascular: Denies: Chest pain, Palpitations Respiratory: Denies: Dyspnea, Cough, Dyspnea on exertion Gastrointestinal: Denies: Abdominal pain, Nausea, Vomiting, Diarrhea, Melena, Hematochezia Genitourinary: Denies: Dysuria, Hematuria, Frequency Musculoskeletal: Reports: Extremity Pain. Denies: Back pain Skin: Denies: Rash, Wounds Neurological: Reports: Headache. Denies: Weakness, Parasthesia, Numbness Physical Exam Vital Signs/Narrative: Vital Signs Temp Pulse Resp BP Pulse Ox 08/03/20 13:44 97.4 F L 64 16 135/89 H 95 Inital Vital Signs reviewed: Yes General: Well nourished, Well developed, No Acute Distress Head: Normocephalic, Atraumatic Eyes: Perrl, EOMI ENT: Moist mucous membranes, No rhinorrhea Neck: Supple, Nontender Cardiovascular: Regular rate, Regular rhythm, No murmurs Respiratory: No distress, CTA bilaterally, Chest nontender Abdomen: Soft, Nontender, Nondistended, Normal bowel sounds Back: Nontender, Normal Inspection Extremities: No edema Skin: Normal color, No rash Neurological: Alert, Oriented x3, Cranial nerves II-XII grossly intact, Normal Strength, Normal Sensation Psychological: Normal affect, Normal Mood Diagnostic/Tx/Re-eval Clinical Impression(s) from Imaging Studies Brain CT 08/03/20 13:56 IMPRESSION: Chronic involutional changes of the brain. Electronically Signed: Felix Ziegler, at 14:25 EDT , Service support , - Medical Decision Making CT of the brain was obtained which does not demonstrate any intracranial hemorrhage or fracture. At this point patient will be discharged home with instructions for follow-up. Return if worsening or concerns ED Disposition - Plan for ED Patient: Disposition: Home or Assisted Living Diagnosis: Concussion Instructions: ED Concussion Referrals: Bo Husain III, MD [Primary Care Provider] - 1 Week if not improving
[2020-08-03 14:33] VITALS: BP 123/79; PULSE 68; RESP 15; O2SAT 98
== END 2020-08-03 14:35 | disposition home or self-care (01) ==
PROVIDERS: Emergency Provider Emergency Medicine; PCP Family Medicine
DX: S06.0X9A Concussion with loss of consciousness of unspecified duration, initial encounter (principal); W22.8XXA Striking against or struck by other objects, initial encounter; Y92.9 Unspecified place or not applicable; Y99.9 Unspecified external cause status; E78.5 Hyperlipidemia, unspecified; I10 Essential (primary) hypertension; I27.21 Secondary pulmonary arterial hypertension; I34.0 Nonrheumatic mitral (valve) insufficiency; I25.2 Old myocardial infarction; I42.8 Other cardiomyopathies
CPT/HCPCS: 70450; 99282

== ENCOUNTER 2020-09-24 15:14 | Emergency (ER) | payer MEDICARE, OTHER, SELFPAY ==
[2020-09-24 15:14] VITALS: BP 135/80; PULSE 69; RESP 18; TEMP 36.2; O2SAT 95; BMI 32.3
--- NOTE | 2020-09-24 15:51 | VDLE_ITS ---
Reason For Study: RLE swelling RIGHT GSV is normal. CFV is compressible, spontaneous, phasic, competent and demonstrates normal augmentation. FV is compressible, spontaneous, phasic, competent and demonstrates normal augmentation. POP V is compressible, spontaneous, phasic, competent and demonstrates normal augmentation. T/P Trunk is compressible. PTV is compressible. RT PerV is compressible. Procedure This is a venous duplex using B-mode, color flow and spectral Doppler. Exam performed portable in ED. The exam was diagnostic. A preliminary report was called and/or faxed to Cleve Haines [facility] & ED. Interpretation Summary There is no evidence of right lower extremity deep vein thrombosis. Right great saphenous vein appears patent and compressible segmentally. Ordering Physician: Thaddeus Rand Referring Physician: Bo Husain Performed By: Gina Negro, BRANDEE, RVT
--- NOTE | 2020-09-24 15:58 | ED.VIS.GEN ---
History of Present Illness Chief Complaint: Edema Informant: Patient Onset: Weeks - 3 Narrative: Sent in by PCP for evaluation right lower leg swelling for 3 weeks. Denies any pain. No chest pains or shortness of breath. She reports she does take a daily diuretic. Denies recent travel or surgeries, no history of DVTs. Denies any orthopnea. No history of CHF. Reports history of hypertension diabetes and asthma. Prior similar symptoms: No Past Medical History - Allergies and Home Meds Allergies/Adverse Reactions: Allergies No Known Allergies Allergy (Verified 09/24/20 15:17) Primary Care Physician: Bo Husain III, MD [Primary Care Provider] - Past Medical History: - - Hypertension, diabetes, asthma, history of coronary disease. Surgical History: cataract, total hip arthroplasty - Left hip hemiarthroplasty, Right total hip arthroplasty., total knee arthroplasty - Right., - - Bilateral bunionectomy, right ring finger, back, microdiskectomy. Smoking Status: Former smoker - Family History Maternal Family History: Family History (Last Reviewed 07/17/19 @ 13:29 by Charo PUGH, PA) Sister Asthma Colon cancer Diabetes Brother Cancer Family History: Reports: No pertinent history, - Paternal Family History: Family History (Last Reviewed 07/17/19 @ 13:29 by Charo PUGH, PA) Sister Asthma Colon cancer Diabetes Brother Cancer Family History: Reports: No pertinent history Review of Systems General: Denies: Chills, Fever, Sweats Eyes: Denies: Visual changes - bilaterally, Diplopia ENT: Denies: Rhinorrhea, Sore throat Cardiovascular: Denies: Chest pain, Palpitations Respiratory: Denies: Dyspnea, Cough, Dyspnea on exertion Gastrointestinal: Denies: Abdominal pain, Nausea, Vomiting, Diarrhea, Melena, Hematochezia Genitourinary: Denies: Dysuria, Hematuria, Frequency Musculoskeletal: Reports: Swelling. Denies: Back pain, Extremity Pain Skin: Denies: Rash, Wounds Neurological: Denies: Headache, Weakness, Numbness Physical Exam Vital Signs/Narrative: Vital Signs Temp Pulse Resp BP Pulse Ox 09/24/20 15:14 97.1 F L 69 18 135/80 H 95 General: Well nourished, Well developed, No Acute Distress Head: Normocephalic, Atraumatic Eyes: Perrl, EOMI ENT: Moist mucous membranes, No rhinorrhea Neck: Supple, Nontender Cardiovascular: Regular rate, Regular rhythm, No murmurs Respiratory: No distress, CTA bilaterally, Chest nontender Abdomen: Soft, Nontender, Nondistended, Normal bowel sounds Back: Nontender, Normal Inspection Extremities: Nontender, Edema, - - 1+ lower extremity pitting edema bilaterally, there is slight asymmetric swelling right greater than left with no calf or medial thigh tenderness. Neuro vas intact distally. Skin: Normal color, No rash Neurological: Alert, Oriented x3, Cranial nerves II-XII grossly intact, Normal Strength, Normal Sensation Psychological: Normal affect, Normal Mood Diagnostic/Tx/Re-eval - Medical Decision Making Patient vitals stable neurovascular intact right lower extremity. No pain. Slight asymmetry. DVT studies of right lower extremity obtained which was negative. She will continue her diuretic and follow-up with her PCP. Signs and symptoms discussed to return. All questions were answered. ED Disposition - Plan for ED Patient: Disposition: Home or Assisted Living Diagnosis: Right leg swelling Instructions: ED Peripheral Edema, Unilateral Referrals: Bo Husain III, MD [Primary Care Provider] - 5-7 Days Additional Instructions: DVT study right lower extremity negative. Follow-up with your doctor.
[2020-09-24 16:54] VITALS: RESP 16
== END 2020-09-24 17:01 | disposition home or self-care (01) ==
PROVIDERS: Emergency Provider Emergency Medicine; PCP Family Medicine
DX: M79.89 Other specified soft tissue disorders (principal); I10 Essential (primary) hypertension; I25.10 Atherosclerotic heart disease of native coronary artery without angina pectoris; E11.9 Type 2 diabetes mellitus without complications; J45.909 Unspecified asthma, uncomplicated
CPT/HCPCS: 93971; 99282

== ENCOUNTER 2022-12-07 05:09 | Emergency (ER) | payer MEDICARE, OTHER, SELFPAY ==
[2022-12-07 05:10] VITALS: BP 192/117; PULSE 87; RESP 18; TEMP 36.6; O2SAT 97; BMI 34.2
--- NOTE | 2022-12-07 05:11 | CT_ITS ---
EXAM: CT ABDOMEN AND PELVIS WITHOUT INTRAVENOUS CONTRAST CLINICAL INDICATION: Kidney Stone -- Pain is on the right side Kidney Stone -- Pain is on the right side TECHNIQUE: Helically acquired images were obtained of the abdomen and pelvis without intravenous contrast. This CT exam was performed using one or more of the following dose reduction techniques: automated exposure control, adjustment of the mA and/or kV according to patient size, and/or use of iterative reconstruction technique. This report was created using [employer] report generation technology. RADIATION DOSE: CTDIvol = 22.96 mGy, DLP = 1115.68 mGy-cm COMPARISON: None. FINDINGS: LOWER THORAX: There is a [id number] hiatal hernia. Lung bases are clear. No cardiomegaly. No significant pericardial effusion. ABDOMEN: LIVER: Unremarkable. Homogeneous. GALLBLADDER AND BILE DUCTS: There are multiple small calcified gallstones. No gallbladder distention or wall edema. No intra- or extrahepatic biliary ductal dilation. PANCREAS: Unremarkable. No focal cystic mass. SPLEEN: Unremarkable. Normal size without focal cystic or solid mass. ADRENALS: Unremarkable. No nodules. KIDNEYS AND URETERS: There are simple appearing peripelvic cysts in both kidneys. There is no demonstrated urinary calculus or hydronephrosis. No follow-up imaging is necessary for simple renal cysts or cysts that are too small to characterize. STOMACH AND BOWEL: There are colonic diverticula. There is no evidence for acute diverticulitis. No stomach or bowel distention. PELVIS: APPENDIX: A normal-appearing appendix is seen on axial images 81-90. BLADDER: Unremarkable. REPRODUCTIVE: There is a vaginal pessary. ABDOMEN and PELVIS: INTRAPERITONEAL SPACE: Unremarkable. No ascites or other fluid collection. No free air. BONES/JOINTS: There are bilateral hip prostheses. There are multilevel degenerative changes in the visualized spine. There is an old compression fracture of the T12 vertebral body. No suspicious lytic or blastic abnormality. SOFT TISSUES: Unremarkable. No discrete abdominal or pelvic wall hernia. VASCULATURE: There is evidence chronic calcification of the abdominal aorta. Abdominal aorta is non-dilated. LYMPH NODES: Unremarkable. No enlarged lymph nodes. CT/Abdomen/Pelvis without Cont IMPRESSION: 1. Hiatal hernia. 2. Gallstones. 3. Colonic diverticulosis, without evidence for acute diverticulitis. 4. Atherosclerosis. 5. Vaginal pessary. 6. No evidence for acute pathology. No demonstrated urinary calculus or hydronephrosis. Electronically Signed: Patrice Dey MD at 6:43 EST Reading Location ID and State: [facility] / [place] , Service support ,
--- NOTE | 2022-12-07 05:15 | EX.ED.DYSGE1 ---
HPI History of Present Illness Chief Complaint: Flank Pain Detail of Chief Complaint: Right flank/anterior abdominal pain Informant: patient Onset/Context/Timing Onset: Hours Context: Sudden Onset Timing: Continuous and Waxes and wanes Quality: Pain Location: Right flank/anterior right side of the abdomen Current Severity: Mild Maximum Severity: Severe Worsened by: Nothing Relieved by: Nothing Associated Symptoms Associated Symptoms: Nausea Narrative Narrative: Patient is an 87-year-old woman with history of nonischemic cardiomyopathy, type 2 diabetes, hypertension, obesity, non-ST elevation myocardial infarction who had a cardiac catheterization that revealed no obstructive coronary lesions. She presents because of abrupt onset of right flank anterior abdominal pain that is waxing waning intensity. There are no precipitating, alleviating or exacerbating factors. She denies history of renal ureterolithiasis. Patient denies vomiting or diarrhea. Patient denies anorexia. Patient denies abnormal vaginal bleeding. She denies dysuria, frequency, urgency or hematuria. There is no history of trauma. She has not noted a rash or any skin lesions. She denies prior episode of similar pain. Patient denies fever, chills night sweats. Denies headache, visual, ocular auditory symptoms. She denies cardiac or respiratory symptoms. Prior similar symptoms: No Recent Illness/Hospitalization: No [facility] Medical History (Updated 12/07/22 @ 06:[address] Patrick Grey MD) Acute respiratory failure Asthma Atherosclerosis of coronary artery of [place] heart without angina pectoris Depression Essential (primary) hypertension GERD (gastroesophageal reflux disease) Hip fracture Hyperlipidemia Hypothyroidism Iron deficiency anemia Neuropathic pain Non-rheumatic tricuspid valve insufficiency Non-ST elevation (NSTEMI) myocardial infarction Nonischemic cardiomyopathy Nonrheumatic mitral (valve) insufficiency Osteoarthritis PVC's (premature ventricular contractions) PVT (paroxysmal ventricular tachycardia) Secondary pulmonary arterial hypertension Type 2 diabetes mellitus Home Medications levothyroxine 75 mcg tablet 75 mcg PO DAILY THYROID 11/12/13 [History Last Taken 12/23/18 06:30 75 MCG] omeprazole 20 mg capsule,delayed release 40 mg PO DAILY GERD 11/12/13 [History Last Taken 12/23/18 06:30 20 mg] simvastatin 40 mg tablet 40 mg PO QHS CHOLESTEROL 11/12/13 [History Last Taken 07/17/17 22:00 40 mg] cyclobenzaprine 10 mg tablet 10 mg PO TID PRN MUSCLE SPASMS 11/06/17 [History Last Taken Unknown] furosemide 20 mg tablet 20 mg PO QDAY SWELLING 11/06/17 [History Last Taken Unknown] albuterol sulfate 90 mcg/actuation aerosol inhaler 2 puff Inhalation Q6H PRN PRN Sob &/Or Wheezing 12/04/17 [History Last Taken Unknown] potassium chloride 10 mEq tablet,extended release 20 meq PO DAILY SUPPLEMENT 12/04/17 [History Last Taken Unknown] meloxicam 15 mg tablet 15 mg PO DAILY 90 days ##90 06/26/18 [History Last Taken Unknown] fluoxetine 20 mg capsule 20 mg PO DAILY 01/14/19 [History Last Taken Unknown] melatonin 10 mg capsule 10 mg PO HS PRN Insomnia 01/14/19 [History Last Taken Unknown] aspirin 81 mg tablet,delayed release (Adult Aspirin Regimen) 81 mg PO DAILY 07/17/19 [History Last Taken Unknown] carvedilol 12.5 mg tablet (Coreg) 6.25 mg PO BID 07/17/19 [History Last Taken Unknown] glipizide 5 mg tablet 5 mg PO BID DIABETES 07/17/19 [History Last Taken Unknown] sulfamethoxazole 800 mg-trimethoprim 160 mg tablet 1 tab PO BID #14 TABLETS 12/07/22 [Rx Last Taken Unknown] Allergy/AdvReac Type Severity Reaction Status Date / Time No Known Allergies Allergy Verified 09/24/20 15:17 Family History Sister Asthma Colon cancer Diabetes Brother Cancer Throat cancer Surgical History History of left heart catheterization (LHC) (02/14/17) 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) Social History Smoking Status: Never smoker alcohol intake: never diet: diabetic what type of physical activity do you participate in: none seatbelt use: always ROS ROS ED Constitutional Constitutional ED: Denies chills, fever(s), subjective, sweats or weight loss Eyes Eyes: Denies blurry vision, change in vision or diplopia ENT ENT ED: Denies ear pain, rhinorrhea or sore throat Cardiovascular Cardiovascular: Denies chest pain, palpitations or racing heartbeat Respiratory/Chest Respiratory/Chest: Denies cough, dyspnea or dyspnea on exertion Gastrointestinal Gastrointestinal: Reports abdominal pain and nausea; Denies constipation, diarrhea, melena or vomiting Genitourinary Genitourinary ED: Denies dysuria, hematuria or urinary frequency Musculoskeletal Musculoskeletal: Reports other Details: Right flank ; Denies arthralgias, back pain, myalgias or neck pain Integumentary Denies rash Neurologic Neurologic: Denies headache(s), paresthesias or weakness Endocrine Endocrinology: Denies cold intolerance, heat intolerance, polydipsia or polyuria Hematologic/Lymphatic Hematologic/Lymphatic: Denies easy bleeding or easy bruising EXAM Physical Exam Const Vital Signs: 12/07/22 05:10 12/07/22 05:10 Temperature 98 F Temperature Source Temporal Pulse Rate 87 Respiratory Rate 18 Respiratory Pattern Normal Blood Pressure 192/117 H Blood Pressure Mean 142 Pulse Ox 97 Oxygen Delivery Method Room Air Positive well nourished, well developed and obese Constitutional Narrative: Patient does appear uncomfortable. General Appearance ED: well developed and pallor; Negative for cyanotic or diaphoretic Nutritional Appearance: obese HEENT HEENT Narrative: Head is atraumatic normocephalic. Ears are normal. Nares are patent. Mucosa is tacky. Uvula is midline. There is no deviation of the tongue with protrusion. Eyes PERRL and EOMs intact bilaterally General Eye ED: Negative for pale conjunctiva or scleral icterus Neck no lymphadenopathy and no JVD Chest Wall inspection of chest normal and palpation of chest normal Resp normal respiratory effort and clear to auscultation bilaterally Cardio regular rate, regular rhythm, S1 normal heart sound, S2 normal heart sound and no murmurs GI normal to inspection, nondistended, normoactive bowel sounds, non-tender, non-distended and no masses; Negative for hepatosplenomegaly Palpation: soft Back/Spine no CVA tenderness Thoracic Spine / Upper Back: Negative for thoracic spinal tenderness Lumbar Spine / Lower Back: Negative for lumbar spinal tenderness Extremity normal to inspection Extremity Narrative: Mild pitting edema lower extremities noted. General Extremety ED: Yes edema; Negative for tenderness General Extremity: edema Neuro oriented x3, CN's II-XII intact bilaterally and no sensory deficits noted Sensorium / Orientation: alert Psych mental status grossly normal Skin no rashes or lesions noted, no wounds and skin turgor normal General Skin Exam: pallor; Negative for elasticity normal or jaundice MDM MDM MDM Narrative Medical decision making narrative: Patient presents with abrupt onset of flank/abdominal pain on the right side with no position of comfort. Pain does wax and wane. Suspect this is due to obstructing ureterolithiasis. Doubt appendicitis. Doubt pyelonephritis. Patient was offered pain medicine which she declined. CBC was obtained assess white count differential. Basic metabolic panel to assess glucose, CO2 anion gap and renal function. UA was obtained to assess for blood and rule out infection. CT of the abdomen pelvis was obtained without contrast to evaluate for obstructing ureteral stone. Patient's last CAT scan was 2016 the CAT scan revealed right middle lobe airspace disease and right lower lobe airspace disease. There was moderate cortical atrophy of the right kidney consistent with chronic medical renal disease. There is moderate cortical atrophy of the left kidney consistent with chronic medical renal disease. There was no evidence of renal calculi. There also was evidence of diffuse atherosclerotic calcification throughout the abdominal aorta. Bones revealed osteopenia. Since patient has not had a CT in approximately 7 years and history is consistent or concerning for stone will obtain CT to evaluate size and location of stone. Lab Data Attestation: I reviewed the patient's lab results. Lab results narrative: CBC is unremarkable. Basic metabolic panel reveals an elevated CO2 of 33. Creatinine is 1.12 with a GFR of 49. Urine reveals protein, occult blood, nitrites and leukoesterase. Micro reveals pyuria with 4+ bacteria. We will send urine culture and treat with 1 g of Rocephin. Labs: Laboratory Results - last 24 hr 12/07/22 12/07/22 12/07/22 05:15 05:15 05:30 WBC 9.7 RBC 5.11 Hgb 14.0 Hct 45.4 MCV 88.8 MCH 27.4 MCHC 30.8 L RDW Std Deviation 44.9 H RDW Coeff of Bhupinder 13.8 Plt Count 269 MPV 10.6 Immature Gran % (Auto) 0.400 Neut % (Auto) 71.3 H Lymph % (Auto) 15.9 L [place] % (Auto) 9.5 Eos % (Auto) 2.2 Baso % (Auto) 0.7 Absolute Neuts (auto) 6.9 Absolute Lymphs (auto) 1.54 Nucleated RBC % 0 Sodium 141 Potassium 4.5 Chloride 106 Carbon Dioxide 33.0 H Anion Gap 2 L BUN 27 H Creatinine 1.12 H Estim Creat Clear Calc 33.05 Est GFR (MDRD) Af Amer 59 L Est GFR (MDRD) Non-Af 49 L BUN/Creatinine Ratio 24.1 H Glucose 129 H Calcium 8.7 Urine Color Yellow Urine Clarity Clear Urine pH 7.0 Ur Specific [place] 1.005 Urine Protein 15 H Urine Glucose (UA) Normal Urine Ketones Negative Urine Occult Blood 10 H Urine Nitrite Positive H Urine Bilirubin Negative Urine Urobilinogen Normal Ur Leukocyte Esterase 500 H Urine RBC 0-5 SEEN Urine WBC 10-25 SEEN Ur Squamous Epith Cells 0-5 SEEN Urine Bacteria 4+ Urine Mucus 0 SEEN Radiography Diagnostic Testing: Clinical Impression(s) from Imaging Studies Abdomen/Pelvis CT 12/07/22 05:11 IMPRESSION: 1. Hiatal hernia. 2. Gallstones. 3. Colonic diverticulosis, without evidence for acute diverticulitis. 4. Atherosclerosis. 5. Vaginal pessary. 6. No evidence for acute pathology. No demonstrated urinary calculus or hydronephrosis. Electronically Signed: Patrice Dey MD at 6:43 EST , CT reveals atrophy of the right and left kidney. Artifact due to prosthetic hips. There is evidence of cholelithiasis. The coronal views are not available for review. We will await read by radiologist. Treatment and Re-Evaluation Narrative: Since there is no evidence of obstructing ureteral stone patient will be discharged to home with prescription for cephalexin. She was informed that she does have gallstones. There is evidence of diverticulosis without evidence of diet lightest. Discharge Plan Triage Chief Complaint: Flank Pain ED Provider: QuePatrick Dx/Rx/DC Orders Clinical Impression: Urinary tract infection in elderly patient, Essential (primary) hypertension, Hyperlipidemia, Nonischemic cardiomyopathy, Secondary pulmonary arterial hypertension, Cholelithiasis, Diverticulosis Instructions: Gallstones Dc, ED Cystitis Female Adult Prescriptions: New sulfamethoxazole-trimethoprim [sulfamethoxazole-trimethoprim] 800-160 mg tablet 1 tab PO BID Qty: 14 0RF No Action furosemide 20 mg tablet 20 mg PO QDAY cyclobenzaprine 10 mg tablet 10 mg PO TID PRN (Reason: MUSCLE SPASMS) glipizide 5 mg tablet 5 mg PO BID Rx Instructions: 2 tabs in am 1 tab qpm meloxicam 15 mg tablet 15 mg PO DAILY 90 Days Qty: 90 Label Comments: fluoxetine 20 mg capsule 20 mg PO DAILY melatonin 10 mg capsule 10 mg PO HS PRN (Reason: Insomnia) aspirin [Adult Aspirin Regimen] 81 mg tablet,delayed release (DR/EC) 81 mg PO DAILY carvedilol [Coreg] 12.5 mg tablet 6.25 mg PO BID simvastatin 40 MG tablet 40 mg PO QHS Label Comments: cholesterol levothyroxine 75 MCG tablet 75 mcg PO DAILY Label Comments: thyroid omeprazole 20 MG capsule 40 mg PO DAILY Label Comments: stomach acid potassium chloride 10 MEQ tablet extended release 20 meq PO DAILY albuterol sulfate 1 PUFF inhaler 2 puff Inhalation Q6H PRN PRN (Reason: Sob &/Or Wheezing) Primary Care Provider: Becca Jacobs NP Referrals: Becca Jacobs NP, [facility] [Primary Care Provider] - 3-5 Days Disposition Disposition: Home, Self Care
[2022-12-07 05:20] LABS: Absolute Lymphocyte Count 1.54 X10^3/uL (0.83-4.51); Absolute Neutrophil Count 6.9 X10^3/uL (2.0-7.7); Basophil# 0.07 X10^3/uL; Basophil% 0.7 % (0-1); Eosinophil# 0.21 X10^3/uL; Eosinophils% 2.2 % (0-5); Hematocrit 45.4 % (37-47); Lymphocyte # 1.54 X10^3/ul (0.83-4.51); Lymphocyte % 15.9 % (19-41); Mean Corp Hgb Conc 30.8 g/dL (32-36); Mean Corpuscular Hgb 27.4 pg (27.0-32.0); Mean Corpuscular Volume 88.8 fL (81-99); Mean Platelet Vol. 10.6 fl (6.2-12.0); Monocyte# 0.92 X10^3/uL; Monocyte% 9.5 % (0-10); NRBC Flagged by Analyzer 0 % (0-5); Neutrophil # 6.91 X10^3/uL (2.7-7.7); Neutrophil % 71.3 % (47-70); Platelet Count 269 K/mm3 (150-450); RBC Distribution Width CV 13.8 % (11.6-14.6); RBC Distribution Width SD 44.9 fl (35.1-43.9); Red Blood Count 5.11 M/mm3 (4.2-5.4); White Blood Count 9.7 K/mm3 (4.4-11.0)
[2022-12-07 05:35] LABS: Anion Gap 2 (5-15); BUN 27 mg/dL (7-18); BUN/Creat Ratio 24.1 RATIO (10-20); Calcium,Total 8.7 mg/dL (8.5-10.1); Chloride 106 mmol/L (98-107); Creatinine, Serum 1.12 mg/dL (0.55-1.02); EST Glomerular Filtration Rate 49 mL/min (>60); Est Glom Filt Rate - Afr Amer 59 mL/min (>60); Estimated Creatinine Clearance 33.05 ml/min; Glucose 129 mg/dL (74-106); Potassium 4.5 mmol/L (3.5-5.1); Sodium Level 141 mmol/L (136-145)
[2022-12-07 05:38] LABS: Mucous, Urine 0 SEEN /hpf (<or=2+)
[2022-12-07 05:40] LABS: Color, Urine Yellow (Yellow); Glucose, Dipstick Normal (Normal); Ketone-Dipstick Negative (Negative); Leukocyte Esterase-Dipstick 500 /ul (Negative); Nitrite-Dipstick Positive (Negative); Occult Blood-Urine 10 /ul (Negative); Protein-Dipstick 15 mg/dl (Negative); Specific Gravity, Urine 1.005 (1.002-1.030); Urine Bilirubin Dipstick Negative (Negative); Urine Clarity Clear (Clear); Urine Urobilinogen Normal (Normal)
[2022-12-07 05:46] LABS: Bacteria 4+ /hpf (None Seen); Red Blood Cells-Urine 0-5 SEEN /hpf (0-5); Squamous Epithelial Cells - UA 0-5 SEEN /hpf (5-10); White Blood Cells 10-25 SEEN /hpf (0-5)
[2022-12-07] MEDS: Ceftriaxone 1 GM/50 ML BAG IV (06:28)
== END 2022-12-07 07:16 | disposition home or self-care (01) ==
PROVIDERS: Emergency Provider Emergency Medicine; PCP Registered Nurse; Visit Provider Emergency Medicine
DX: N39.0 Urinary tract infection, site not specified (principal); G31.9 Degenerative disease of nervous system, unspecified; I42.8 Other cardiomyopathies; E11.40 Type 2 diabetes mellitus with diabetic neuropathy, unspecified; I70.0 Atherosclerosis of aorta; E78.5 Hyperlipidemia, unspecified; Z80.0 Family history of malignant neoplasm of digestive organs; K57.30 Diverticulosis of large intestine without perforation or abscess without bleeding; J98.4 Other disorders of lung; M85.80 Other specified disorders of bone density and structure, unspecified site; I25.10 Atherosclerotic heart disease of native coronary artery without angina pectoris; I10 Essential (primary) hypertension; K80.20 Calculus of gallbladder without cholecystitis without obstruction; E66.9 Obesity, unspecified; I25.2 Old myocardial infarction
CPT/HCPCS: 74176; 80048; 81001; 85025; 87086; 87088; 87186; 96365; 99283

== ENCOUNTER 2023-11-06 16:30 | Emergency (ER) | payer MEDICARE, OTHER, SELFPAY ==
[2023-11-06] VITALS (15 sets, daily range): BP systolic 107–151; BP diastolic 83–100; PULSE 82–99; RESP 16–30; TEMP 36.6; O2SAT 94–95
--- NOTE | 2023-11-06 16:50 | RAD_ITS ---
INDICATION: chest pain EXAMINATION/TECHNIQUE: X-RAY - XR Chest 1 View COMPARISON: July 18, 2017 FINDINGS: LINES/DEVICES: None. LUNGS: No consolidation, edema or effusion. Interstitial prominence bilaterally. No pneumothorax. MEDIASTINUM AND CARDIOVASCULAR STRUCTURES: Cardiac silhouette not enlarged. Central airways and mediastinal contour are unremarkable. BONES AND SOFT TISSUES: Unremarkable. RAD/Chest 1 View (Portable) IMPRESSION: Bilateral mild interstitial prominence. Electronically Signed: Khai Luis DO at 17:02 EST ,
[2023-11-06] MEDS: Aspirin 81 MG TAB.CHEW 324 MG PO (16:55)
[2023-11-06 17:09] LABS: Absolute Lymphocyte Count 1.38 X10^3/uL (0.83-4.51); Basophil# 0.07 X10^3/uL; Basophil% 0.7 % (0-1); Eosinophil# 0.17 X10^3/uL; Eosinophils% 1.8 % (0-5); Hematocrit 43.1 % (37-47); Lymphocyte # 1.38 X10^3/ul (0.83-4.51); Lymphocyte % 14.6 % (19-41); Mean Corp Hgb Conc 30.2 g/dL (32-36); Mean Corpuscular Hgb 26.9 pg (27.0-32.0); Mean Corpuscular Volume 89.2 fL (81-99); Mean Platelet Vol. 10.8 fl (6.2-12.0); Monocyte% 8.4 % (0-10); NRBC Flagged by Analyzer 0 % (0-5); Neutrophil # 7.02 X10^3/uL (2.7-7.7); Neutrophil % 74.1 % (47-70); Platelet Count 258 K/mm3 (150-450); RBC Distribution Width CV 14.1 % (11.6-14.6); Red Blood Count 4.83 M/mm3 (4.2-5.4); White Blood Count 9.5 K/mm3 (4.4-11.0)
[2023-11-06 17:24] LABS: Anion Gap 3 (5-15); BUN 34 mg/dL (7-18); Calcium,Total 8.7 mg/dL (8.5-10.1); Chloride 111 mmol/L (98-107); Creatinine, Serum 1.26 mg/dL (0.55-1.02); EST Glomerular Filtration Rate 43 mL/min (>60); Est Glom Filt Rate - Afr Amer 52 mL/min (>60); Glucose 157 mg/dL (74-106); Potassium 4.7 mmol/L (3.5-5.1); Sodium Level 143 mmol/L (136-145); Troponin-I HS 13 pg/mL (3.0-54.0)
[2023-11-06 17:30] LABS: BNP,B-Type NATRIURETIC PEPTIDE 592.4 pg/mL (0-100)
--- NOTE | 2023-11-06 18:08 | ED.VIS.CHEST ---
HPI History of Present Illness Chief Complaint: Chest Pain Narrative Narrative: 88-year-old female with history of pulmonary hypertension, nonischemic cardiomyopathy, hypertension, PVCs, NSTEMI, hyperlipidemia presenting with generalized fatigue. She states she feels like she has had chest heaviness in and out for 2 weeks initially but then states it has been about a month and she saw her primary care physician at that time and had lab work done that was all normal. She states there is nothing new about the chest discomfort. She has had it there all day since she woke up this morning. She states she will typically wake up in the morning with it and after an hour or so it gets better and she performs her ADLs. She is able to do her ADLs. She is eating and drinking normally. She is making normal urine and stool. She denies cough, fever. She does feel short of breath at times he has a history of this. She states she does have asthma and does have albuterol inhaler at home that she uses periodically but has not been using this more over the last couple weeks. Patient states her last visit with Dr. Duenas was in 2019. She states he is not sure which she discussed at this visit. I did ask her what her primary care physician felt was going on with her a month ago when she was seen and she states that she did not really tell her anything. [facility] Medical History Acute respiratory failure Asthma Atherosclerosis of coronary artery of [place] heart without angina pectoris Depression Essential (primary) hypertension GERD (gastroesophageal reflux disease) Hip fracture Hyperlipidemia Hypothyroidism Iron deficiency anemia Neuropathic pain Non-rheumatic tricuspid valve insufficiency Non-ST elevation (NSTEMI) myocardial infarction Nonischemic cardiomyopathy Nonrheumatic mitral (valve) insufficiency Osteoarthritis PVC's (premature ventricular contractions) PVT (paroxysmal ventricular tachycardia) Secondary pulmonary arterial hypertension Type 2 diabetes mellitus Home Medications levothyroxine 75 mcg tablet 75 mcg PO DAILY THYROID 11/12/13 [History Last Taken 12/23/18 06:30 75 MCG] simvastatin 40 mg tablet 40 mg PO QHS CHOLESTEROL 11/12/13 [History Last Taken 07/17/17 22:00 40 mg] cyclobenzaprine 10 mg tablet 10 mg PO TID PRN MUSCLE SPASMS 11/06/17 [History Last Taken Unknown] furosemide 20 mg tablet 20 mg PO QDAY SWELLING 11/06/17 [History Last Taken Unknown] albuterol sulfate 90 mcg/actuation aerosol inhaler 2 puff Inhalation Q6H PRN PRN Sob &/Or Wheezing 12/04/17 [History Last Taken Unknown] potassium chloride 10 mEq tablet,extended release 20 meq PO DAILY SUPPLEMENT 12/04/17 [History Last Taken Unknown] meloxicam 15 mg tablet 15 mg PO DAILY 90 days ##90 06/26/18 [History Last Taken Unknown] fluoxetine 20 mg capsule 20 mg PO DAILY stress 01/14/19 [History Last Taken Unknown] melatonin 10 mg capsule 10 mg PO HS PRN Insomnia 01/14/19 [History Last Taken Unknown] aspirin 81 mg tablet,delayed release (Adult Aspirin Regimen) 81 mg PO DAILY 07/17/19 [History Last Taken Unknown] carvedilol 12.5 mg tablet (Coreg) 12.5 mg PO BID 07/17/19 [History Last Taken Unknown] glipizide 5 mg tablet 5 mg PO BID DIABETES 07/17/19 [History Last Taken Unknown] budesonide-formoterol HFA 160 mcg-4.5 mcg/actuation aerosol inhaler (Breyna) 2 inh inhalation BID 11/06/23 [History Last Taken Unknown] insulin human U-100 NPH-regulr 70-30 mix 100 unit/mL subcutaneous susp (Novolin 70/30 U-100 Insulin) 10 unit subcut QHS 11/06/23 [History Last Taken Unknown] loperamide 2 mg capsule (Anti-Diarrheal (loperamide)) 10 mg PO DAILY PRN DIARRHEA 11/06/23 [History Last Taken Unknown] losartan 50 mg tablet 50 mg PO DAILY hyperlipidemia 11/06/23 [History Last Taken Unknown] omeprazole 40 mg capsule,delayed release 40 mg PO DAILY GERD 11/06/23 [History Last Taken Unknown] pramipexole 0.125 mg tablet 0.125 mg PO QHS MUSCLE CRAMPING 11/06/23 [History Last Taken Unknown] Allergy/AdvReac Type Severity Reaction Status Date / Time No Known Allergies Allergy Verified 11/06/23 16:32 Family History Sister Asthma Colon cancer Diabetes Brother Cancer Throat cancer Surgical History History of left heart catheterization (LHC) (02/14/17) 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) Social History Smoking Status: Never smoker alcohol intake: never diet: diabetic what type of physical activity do you participate in: none seatbelt use: always ROS ROS ED ROS Narrative Fatigue Constitutional Constitutional ED: Denies chills, fever(s) or sweats Eyes Eyes: Denies blurry vision or change in vision ENT ENT ED: Denies ear pain or sore throat Cardiovascular Cardiovascular: Reports chest pain; Denies palpitations or racing heartbeat Respiratory/Chest Respiratory/Chest: Reports dyspnea; Denies cough or sputum Gastrointestinal Gastrointestinal: Denies abdominal pain, constipation, diarrhea, nausea or vomiting Genitourinary Genitourinary ED: Denies dysuria, hematuria or urinary frequency Musculoskeletal Musculoskeletal: Denies arthralgias, myalgias or neck pain Integumentary Denies abscess, Abrasions or rash Neurologic Neurologic: Denies headache(s), paresthesias or weakness Psychiatric Psychiatric: Denies anxiety, depression, suicidal ideation or suicidal thoughts Endocrine Endocrinology: Denies polydipsia or polyuria EXAM Physical Exam Const Vital Signs: 11/06/23 16:30 11/06/23 16:47 11/06/23 16:47 Temperature 97.8 F Temperature Source Temporal Pulse Rate 99 Respiratory Rate 16 Respiratory Effort Short of Breath Blood Pressure 123/100 H Blood Pressure Mean 107 Pulse Ox 94 Oxygen Delivery Method Room Air Room Air 11/06/23 16:53 11/06/23 17:00 11/06/23 17:10 Temperature Temperature Source Pulse Rate 97 91 Respiratory Rate 23 H 29 H Respiratory Effort Blood Pressure 107/96 H Blood Pressure Mean 100 Pulse Ox 94 94 94 Oxygen Delivery Method 11/06/23 17:15 11/06/23 17:20 11/06/23 17:30 Temperature Temperature Source Pulse Rate 96 Respiratory Rate 25 H Respiratory Effort Blood Pressure 125/89 H 108/87 H Blood Pressure Mean 101 94 Pulse Ox 94 Oxygen Delivery Method 11/06/23 17:40 11/06/23 17:45 11/06/23 17:50 Temperature Temperature Source Pulse Rate 95 86 93 Respiratory Rate 30 H 21 H 29 H Respiratory Effort Blood Pressure 133/91 H Blood Pressure Mean 101 Pulse Ox 94 94 95 Oxygen Delivery Method Room Air 11/06/23 18:00 11/06/23 18:10 11/06/23 18:15 Temperature Temperature Source Pulse Rate 91 82 82 Respiratory Rate 24 H 23 H 25 H Respiratory Effort Blood Pressure 137/90 H 151/83 H Blood Pressure Mean 105 101 Pulse Ox 95 94 94 Oxygen Delivery Method Room Air 11/06/23 18:20 Temperature Temperature Source Pulse Rate 86 Respiratory Rate 22 H Respiratory Effort Blood Pressure Blood Pressure Mean Pulse Ox 95 Oxygen Delivery Method Positive well nourished General Appearance ED: NAD; Negative for pallor HEENT Reports moist mucous membranes normocephalic Eyes PERRL and EOMs intact bilaterally Chest Wall inspection of chest normal Resp normal respiratory effort Resp Narrative: Mild scattered wheeze. Cardio regular rate and regular rhythm Neuro oriented x3 and CN's II-XII intact bilaterally Sensorium / Orientation: awake and alert Skin no rashes or lesions noted General Skin Exam: Negative for jaundice or pallor Heart Score History: Slightly/Non-Suspicious ECG: Normal Age: >/= 65 years Risk Factors: >/= 3 Risk Factors or History of CAD Troponin: </= Normal Limit Score: 4 MDM MDM MDM Narrative Medical decision making narrative: Patient presenting with chest pain, shortness of breath, generalized fatigue. Differential includes ACS, CHF, pneumonia, COVID, influenza, dehydration, electro normalities. CBC was obtained to assess white blood cell count, hemoglobin, platelets. BMP to assess renal function, electrolytes, glucose. High-sensitivity troponin and EKG to assess for ischemia/dysrhythmia. Chest x-ray to rule out pneumonia. BNP will be obtained to assess for CHF. EKG on my interpretation shows atrial fibrillation with ventricular rate of 105 bpm without sign of ischemic change on my interpretation. Chest x-ray on my interpretation shows perihilar prominence with his not much change from chest x-ray. BNP is elevated at 519.4 today. High-sensitivity troponin 13. While the patient ambulate with pulse ox as her workup is ultimately fairly normal. Patient feels well enough to go home. We discussed possibly doubling her Lasix for the next couple of days to see if that gives her improvement in shortness of breath. She was amenable to this. Be ambulated in the argueta with pulse ox and she ambulated well 94% pulse ox with a walker which is her baseline. Recommend follow-up with cardiology. Impression: 1. Generalized weakness 2. Dyspnea Lab Data Labs: Laboratory Results - last 24 hr 11/06/23 16:45 WBC 9.5 RBC 4.83 Hgb 13.0 Hct 43.1 MCV 89.2 MCH 26.9 L MCHC 30.2 L RDW Std Deviation 46.0 H RDW Coeff of Bhupinder 14.1 Plt Count 258 MPV 10.8 Immature Gran % (Auto) 0.400 Neut % (Auto) 74.1 H Lymph % (Auto) 14.6 L Charles % (Auto) 8.4 Eos % (Auto) 1.8 Baso % (Auto) 0.7 Absolute Neuts (auto) 7.0 Absolute Lymphs (auto) 1.38 Nucleated RBC % 0 Sodium 143 Potassium 4.7 Chloride 111 H Carbon Dioxide 29.0 Anion Gap 3 L BUN 34 H Creatinine 1.26 H Est GFR (MDRD) Af Amer 52 L Est GFR (MDRD) Non-Af 43 L BUN/Creatinine Ratio 27.0 H Glucose 157 H Calcium 8.7 Troponin I High Sens 13 B-Natriuretic Peptide 592.4 H Radiography Diagnostic Testing: Clinical Impression(s) from Imaging Studies Chest X-Ray 11/06/23 16:50 IMPRESSION: Bilateral mild interstitial prominence. Electronically Signed: Khai Luis DO at 17:02 EST Reading Location ID and State: [facility] / [place] Tel [phone], Service support , Discharge Plan Triage Chief Complaint: Chest Pain ED Provider: Kristopher Lees Dx/Rx/DC Orders Instructions: ED Chest Pain, Uncertain Cause, ED Weakness (Uncertain Cause) Prescriptions: No Action furosemide 20 mg tablet 20 mg PO QDAY cyclobenzaprine 10 mg tablet 10 mg PO TID PRN (Reason: MUSCLE SPASMS) glipizide 5 mg tablet 5 mg PO BID Rx Instructions: 2 tabs in am 1 tab qpm meloxicam 15 mg tablet 15 mg PO DAILY 90 Days Qty: 90 Patient Comments: fluoxetine 20 mg capsule 20 mg PO DAILY melatonin 10 mg capsule 10 mg PO HS PRN (Reason: Insomnia) aspirin [Adult Aspirin Regimen] 81 mg tablet,delayed release (DR/EC) 81 mg PO DAILY carvedilol [Coreg] 12.5 mg tablet 12.5 mg PO BID simvastatin 40 MG tablet 40 mg PO QHS Patient Comments: cholesterol levothyroxine 75 MCG tablet 75 mcg PO DAILY Patient Comments: thyroid potassium chloride 10 MEQ tablet extended release 20 meq PO DAILY Patient Comments: MAYBE 10 MEQ? albuterol sulfate 1 PUFF inhaler 2 puff Inhalation Q6H PRN PRN (Reason: Sob &/Or Wheezing) losartan 50 mg tablet 50 mg PO DAILY Patient Comments: TAKE 1 TABLET BY MOUTH EVERY DAY omeprazole 40 mg capsule,delayed release(DR/EC) 40 mg PO DAILY Patient Comments: TAKE 1 CAPSULE BY MOUTH EVERY DAY pramipexole 0.125 mg tablet 0.125 mg PO QHS Patient Comments: TAKE 1-2 TABLETS BY MOUTH DAILY AT BEDTIME. loperamide [Anti-Diarrheal (loperamide)] 2 mg capsule 10 mg PO DAILY PRN (Reason: DIARRHEA) budesonide-formoterol [Breyna] 160-4.5 mcg/actuation HFA aerosol inhaler 2 inh inhalation BID Novolin 70/30 U-100 Insulin 100 unit/mL (70-30) suspension 10 unit SUBCUT QHS Primary Care Provider: Becca Jacobs NP Referrals: Patrick Duenas MD [Med Staff - Active Staff] - 3-5 Days Becca Jacobs NP, HOME HEALTH ATTENDANT-C [Primary Care Provider] - Disposition Disposition: Home, Self Care Discharge Date/Time: 11/06/23 19:11
== END 2023-11-06 19:11 | disposition home or self-care (01) ==
PROVIDERS: Emergency Provider Student in an Organized Health Care Education/Training Program; PCP Registered Nurse; Visit Provider Student in an Organized Health Care Education/Training Program
DX: R07.9 Chest pain, unspecified (principal); E11.9 Type 2 diabetes mellitus without complications; Z79.4 Long term (current) use of insulin; R53.1 Weakness; E78.5 Hyperlipidemia, unspecified; R06.00 Dyspnea, unspecified; I10 Essential (primary) hypertension; I5A Non-ischemic myocardial injury (non-traumatic); E03.9 Hypothyroidism, unspecified; Z79.899 Other long term (current) drug therapy; I25.10 Atherosclerotic heart disease of native coronary artery without angina pectoris; Z79.82 Long term (current) use of aspirin; Z79.51 Long term (current) use of inhaled steroids; Z79.84 Long term (current) use of oral hypoglycemic drugs; K21.9 Gastro-esophageal reflux disease without esophagitis; Z96.651 Presence of right artificial knee joint
CPT/HCPCS: 71045; 80048; 83880; 84484; 85025; 93005; 99284; A4216

== ENCOUNTER 2023-12-01 15:04 | Emergency (ER) | payer MEDICARE, OTHER, SELFPAY ==
[2023-12-01] VITALS (9 sets, daily range): BP systolic 123–142; BP diastolic 89–101; PULSE 79–95; RESP 19–26; TEMP 35.8–36; O2SAT 93–99; BMI 32.1
[2023-12-01] MEDS: LORazepam 2 MG/ML Syringe 1 MG IV (15:06)
--- NOTE | 2023-12-01 15:07 | CT_ITS ---
INDICATION: Neuro deficit, acute, stroke suspected EXAMINATION: CTA HEAD - CTA Head and Neck Stroke W/ Contrast (and W/O if performed) TECHNIQUE: [place]/head CT angiogram protocol was performed following IV contrast. Routine carotid CT angiogram protocol was performed without and with IV contrast. NASCET criteria using the distal ICAs for comparison were used for evaluation of stenoses. 3D reconstructions were reviewed of the CT angiogram head and neck. A radiation dose optimization technique was used for this scan. IV Contrast dosage and agent: 100 mL of Isovue-370. COMPARISON: FINDINGS: --Anterior cerebral circulation: ACAs: No significant stenosis at the visualized segments. ACOM: Present. MCAs: No significant stenosis at the visualized segments. --Posterior cerebral circulation: PCOMs: Normal right posterior communicating artery. No visible left posterior communicating artery. product marketing coordinator: No significant stenosis at the visualized segments. BASILAR ARTERY: No significant stenosis. --Carotid and vertebral circulation: AORTIC ARCH AND BRANCHES: Normal anatomy, patent. RIGHT CCA: No occlusion, significant stenosis or dissection. RIGHT ICA: No occlusion, significant stenosis or dissection. LEFT CCA: No occlusion, significant stenosis or dissection. LEFT ICA: No occlusion, significant stenosis or dissection. RIGHT VERTEBRAL ARTERY: No occlusion, significant stenosis or dissection. LEFT VERTEBRAL ARTERY: No occlusion, significant stenosis or dissection. NECK SOFT TISSUES: Unremarkable. LUNG APICES: Left apical pleural scarring. BONES: Unremarkable. CT/STROKE CTA Head AND Neck W/Con IMPRESSION: 1. Negative CTA head. 2. Calcified plaques in both carotid bulbs but no significant stenosis or occlusion of both cervical carotid arteries. 3. Normal bilateral vertebral arteries. 4. Normal aortic arch and origins of the great vessels. 5. Left apical pleural scarring. N.B. : The above Results were Read Back by Miguel Angel Willis MD to Benja Burgos DO, and understanding confirmed on 12/01/2023 15:47:03 (ET). Electronically Signed: Miguel Angel Willis MD at 15:49 EST ,
--- NOTE | 2023-12-01 15:07 | CT_ITS ---
We are attempting to reach an attending provider to discuss findings. An addendum with communication details will be sent when the communication is complete. EXAM: CT HEAD WITHOUT INTRAVENOUS CONTRAST CLINICAL INDICATION: Neuro deficit, acute, stroke suspected TECHNIQUE: Multiple axial images were obtained of the head without intravenous contrast. This CT exam was performed using one or more of the following dose reduction techniques: automated exposure control, adjustment of the mA and/or kV according to patient size, and/or use of iterative reconstruction technique. RADIATION DOSE: CTDIvol = 44.99 mGy, DLP = 829.85 mGy-cm COMPARISON: CT head without contrast 08/03/2020. FINDINGS: BRAIN AND EXTRA-AXIAL SPACES: Unremarkable. No intra- or extra-axial hemorrhage. No evidence of acute infarct. No intracranial mass or mass effect. There is preservation of the acevedo/white matter interface. Posterior fossa structures are unremarkable. Ventricles are appropriate for age. No hydrocephalus. Basal cisterns are patent. BONES/JOINTS: Unremarkable. No discrete lytic or blastic abnormalities. SINUSES: Unremarkable as visualized. Clear. MASTOID AIR CELLS: Unremarkable. Clear. ORBITS: Visualized globes, extraocular muscles, optic nerves and retrobulbar fat appear unremarkable. CT/STROKE Brain/Head without Cont IMPRESSION: 1. No CT evidence of intracranial bleeding or acute ischemic infarct at this time. 2. Total ASPECTS score: 10/10. 3. No significant change when compared to 08/03/2020. Electronically Signed: Miguel Angel Willis MD at 15:19 EST ,
--- OUTSIDE RECORDS SUMMARY | 2023-12-01 15:11 | XMS RPT_ITS | CCD ---
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 Name Role Phone Ornelas, Nisha Unavailable Unavailable Ornelas, Nisha Unavailable Unavailable COLLEEN Zapata, Soheila Frias Unavailable UnavailChica Dodd Unavailable DANIEL SALEEM A III Unavailable Unavailable NADEGE WEEKS Unavailable Unavailable DANIEL SALEEM III Unavailable Unavailable TYLER SHEFFIELD Unavailable Unavailable Ornelas, Nisha Unavailable Unavailable Malinda MACIAS, Rema Gee Unavailable Unavailable Blaz TIPPLE MECHANIC.ALEXANDRA, Benja DUNLAP Unavailable Aliya Salazar MD Primary Care Provider Blaz TIPPLE MECHANIC.FABI MORRIS Daniel Unavailable Haagen TIPPLE MECHANIC.ALEXANDRA, Becca Primary Care Provider Blaz TIPPLE MECHANIC.FABI MORRIS Daniel Unavailable Haagen TIPPLE MECHANIC.ALEXANDRA, Becca Primary Care Provider Blaz TIPPLE MECHANIC.FABI MORRIS Daniel Unavailable Haagen TIPPLE MECHANIC.MGMT SPECIALIST, Becca Primary Care Provider HAAGEN, BECCA Primary Care Unavailable FLOREZLAURA GARCIA Attending Unavailable HAAGEN, BECCA Referring Unavailable HAAGEN, BECCA Primary Care Unavailable HAAGEN, BECCA Attending Unavailable HAAGEN, BECCA Primary Care Unavailable HAAGEN, BECCA Primary Care Unavailable LAURA FLOREZ Attending Unavailable HAAGEN, BECCA Primary Care Unavailable HAAGEN, BECCA Referring Unavailable HAAGEN, BECCA Primary Care Unavailable HAAGEN, BECCA Attending Unavailable HAAGEN, BECCA Primary Care Unavailable TESHA LAURA Attending Unavailable HAAGEN, BECCA Primary Care Unavailable LAURA FLOREZ Attending Unavailable Allergies Allergy Classification Reported Allergen(s) Allergy Type Date of Onset Reaction(s) Facility (20 sources) codeine; Translations: [CODEINE] drug allergy 2 Other: See Comments [facility] Work Phone: (20 sources) diclofenac; Translations: [DICLOFENAC] Drug Allergy 2 Diarrhea [facility] Other [place] [facility] (20 sources) Lisinopril; Translations: [LISINOPRIL] Drug Allergy 9 Cough [facility] (20 sources) metFORMIN; Translations: [METFORMIN] Drug Allergy 9 Diarrhea [facility] Medications Current Medications Medication Drug Class(es) Dates Sig (Normalized) Sig (Original) cephalexin 500 mg oral capsule (2 sources) Cephalosporin Antibacterial Start: 06-16-2022 End: 06-23-2022 take 1 capsule by mouth twice daily cephALEXin (KEFLEX) 500 mg capsule Indications: Acute cystitis without hematuria Take 1 capsule by mouth twice daily for 7 days. 14 capsule 0 06/16/2022 06/23/2022 Active Completed/Discontinued Medications Medication Drug Class(es) Dates Sig (Normalized) Sig (Original) acetaminophen 325 mg / HYDROcodone bitartrate 5 mg oral tablet (20 sources) Opioid Agonist Start: 02-19-2014 End: 03-02-2015 take 1 tablet by mouth every six hours as needed HYDROCODONE-ACETAM INOPHEN 5-325 MG TABS 1 tablet by mouth every 6 hours as needed HYDROCODONE-ACETAM INOPHEN [id number] Patrick Duenas MD Problems Active Problems Problem Classification Problem Date Documented Date Episodic/Chronic Acute myocardial infarction (20 sources) Myocardial infarction; Translations: [Non-ST elevation (NSTEMI) myocardial infarction] Onset: 02-26-2017 02-26-2017 Chronic Adjustment disorders (20 sources) Reactive depression (situational); Translations: [Adjustment disorder with depressed mood] Onset: 11-18-2013 11-11-2018 Chronic Asthma (20 sources) Asthma; Translations: [Moderate persistent asthma, uncomplicated] Onset: 03-30-2017 03-30-2017 Chronic Cardiac dysrhythmias (20 sources) Paroxysmal ventricular tachycardia; Translations: [Ventricular premature beats] Onset: 01-23-2011 01-23-2011 Chronic Chronic kidney disease (20 sources) Chronic kidney disease stage 3B ; Translations: [Stage 3b chronic kidney disease (HCC)] Onset: 09-14-2022 Chronic Chronic kidney disease (1 source) Chronic kidney disease; Translations: [Stage 3b chronic kidney disease (HCC)] Onset: 03-19-2023 Complication of device; implant or graft (2 sources) Abrasion of vagina; Translations: [Other specified complication of genitourinary prosthetic devices, implants and grafts, subsequent encounter] 08-17-2023 Episodic Congestive heart failure; nonhypertensive (20 sources) Chronic congestive heart failure; Translations: [Heart failure, unspecified] Onset: 06-04-2017 06-04-2017 Chronic Coronary atherosclerosis and other heart disease (20 sources) Coronary atherosclerosis; Translations: [Atherosclerotic heart disease of zuni coronary artery without angina pectoris] Onset: 08-01-2017 08-08-2018 Chronic Diabetes mellitus with complications (20 sources) Insulin treated type 2 diabetes mellitus; Translations: [Type 2 diabetes mellitus with diabetic chronic kidney disease] Onset: 12-27-2015 Chronic Diabetes mellitus without complication (1 source) Diabetes mellitus without complication; Translations: [Type 2 diabetes mellitus with stage 3a chronic kidney disease, with long-term current use of insulin ([facility])] Onset: 09-14-2022 Disorders of lipid metabolism (20 sources) Hyperlipidemia; Translations: [Hyperlipidemia, unspecified] Onset: 11-18-2013 12-27-2015 Chronic Esophageal disorders (20 sources) Gastroesophageal reflux disease; Translations: [Gastro-esophageal reflux disease without esophagitis] Onset: 01-22-2012 01-22-2012 Chronic Essential hypertension (20 sources) Benign hypertension; Translations: [Essential (primary) hypertension] Onset: 03-30-2016 03-30-2016 Chronic Genitourinary symptoms and ill-defined conditions (20 sources) Urge incontinence of urine; Translations: [Urge incontinence] Onset: 07-03-2017 07-03-2017 Chronic Heart valve disorders (20 sources) Nonrheumatic mitral (valve) insufficiency; Translations: [Nonrheumatic mitral (valve) prolapse] Onset: 04-02-2017 04-02-2017 Chronic Hypertension with complications and secondary hypertension (18 sources) Hypertensive heart AND chronic kidney disease stage 3; Translations: [Hypertensive heart and chronic kidney disease with heart failure and stage 1 through stage 4 chronic kidney disease, or unspecified chronic kidney disease] Onset: 09-14-2022 09-14-2022 Chronic Malaise and fatigue (2 sources) Fatigue; Translations: [Other fatigue] Onset: 09-21-2023 09-21-2023 Episodic Menopausal disorders (1 source) Atrophy of vagina; Translations: [Postmenopausal atrophic vaginitis] 08-17-2023 Chronic Nonmalignant breast conditions (20 sources) Fibrocystic disease of breast; Translations: [Diffuse cystic mastopathy of unspecified breast] Onset: 05-01-2006 01-22-2012 Chronic Osteoarthritis (20 sources) Arthritis of right knee; Translations: [Unilateral primary osteoarthritis, right knee] Onset: 05-06-2018 05-06-2018 Chronic Other connective tissue disease (20 sources) Artificial knee joint present; Translations: [Presence of unspecified artificial knee joint] Onset: 08-01-2017 08-08-2018 Chronic Other connective tissue disease (20 sources) Hip joint prosthesis present; Translations: [Presence of right artificial hip joint] Onset: 12-31-2017 08-08-2018 Chronic Other diseases of bladder and urethra (20 sources) Neurogenic bladder; Translations: [Neuromuscular dysfunction of bladder, unspecified] Onset: 01-28-2015 01-28-2015 Chronic Other hereditary and degenerative nervous system conditions (2 sources) Restless legs; Translations: [Restless legs syndrome] Chronic Other hereditary and degenerative nervous system conditions (1 source) Restless legs syndrome; Translations: [Restless leg] Onset: 03-19-2023 Chronic Other lower respiratory disease (1 source) Cough; Translations: [Acute cough] Episodic Other nervous system disorders (1 source) Cold feet; Translations: [Unspecified disturbances of skin sensation] Episodic Other nutritional; endocrine; and metabolic disorders (10 sources) Body mass index (BMI) 33.0-33.9, adult; Translations: [Body mass index (BMI) 34.0-34.9, adult] Onset: 08-25-2014 03-02-2015 Chronic Other skin disorders (1 source) Skin irritation ; Translations: [Other skin changes] 09-21-2023 Episodic Other skin disorders (1 source) Other skin changes; Translations: [Skin irritation] Onset: 11-17-2023 Episodic Mariana-; endo-; and myocarditis; cardiomyopathy (20 sources) Cardiomyopathy; Translations: [Cardiomyopathy, unspecified] Onset: 02-26-2017 02-26-2017 Chronic Prolapse of female genital organs (5 sources) Midline cystocele; Translations: [Cystocele, midline] Onset: 06-01-2023 Chronic Rehabilitation care; fitting of prostheses; and adjustment of devices (6 sources) Patient encounter status; Translations: [Encounter for fitting and adjustment of other specified devices] Onset: 06-01-2023 Chronic Residual codes; unclassified (1 source) Difficulty sleeping ; Translations: [Sleep disorder, unspecified] Episodic Spinal cord injury (10 sources) 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; Translations: [Central cord syndrome at C7 level of cervical spinal cord, initial encounter] Onset: 08-08-2018 08-08-2018 Chronic Spinal cord injury (20 sources) Central cord syndrome of cervical spinal cord; Translations: [Central cord syndrome at unspecified level of cervical spinal cord, sequela] Onset: 08-08-2018 09-14-2022 Episodic Spondylosis; intervertebral disc disorders; other back problems (20 sources) Degeneration of lumbar intervertebral disc; Translations: [Other intervertebral disc degeneration, lumbar region] Onset: 02-12-2020 02-12-2020 Chronic Thyroid disorders (20 sources) Hypothyroidism; Translations: [Hypothyroidism, unspecified] Onset: 06-12-2013 06-12-2013 Chronic Urinary tract infections (1 source) Acute cystitis; Translations: [Acute cystitis without hematuria] Episodic Past or Other Problems Problem Classification Problem Date Documented Date Episodic/Chronic Administrative/socia l admission (20 sources) Patient encounter status; Translations: [Other specified counseling] Onset: 06-16-2022 06-16-2022 Episodic Allergic reactions (1 source) Unspecified contact dermatitis, unspecified cause; Translations: [Contact dematitis] Onset: 03-19-2023 Episodic Cardiac dysrhythmias (12 sources) Palpitations; Translations: [Palpitations] Onset: 01-23-2011 Resolved: 02-26-2017 01-23-2011 Episodic Fluid and electrolyte disorders (20 sources) Hypokalemia; Translations: [Hypokalemia] Onset: 08-05-2020 08-05-2020 Episodic Genitourinary symptoms and ill-defined conditions (20 sources) Retention of urine; Translations: [Retention of urine, unspecified] Onset: 03-27-2014 03-27-2014 Episodic Inflammation; infection of eye (except that caused by tuberculosis or sexually transmitteddisease) (20 sources) Allergic conjunctivitis of bilateral eyes; Translations: [Acute atopic conjunctivitis, bilateral] Onset: 01-10-2021 01-10-2021 Episodic Mycoses (1 source) Candidiasis of skin and nail; Translations: [Cutaneous candidiasis] Onset: 03-19-2023 Episodic Nonspecific chest pain (12 sources) Chest pain, unspecified; Translations: [Chest pain, unspecified] Onset: 08-08-2013 Resolved: 02-26-2017 08-08-2013 Episodic Other aftercare (20 sources) Long-term current use of aspirin; Translations: [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] Onset: 08-16-2017 08-08-2018 Episodic Other aftercare (1 source) senior living (current) use of insulin; Translations: [Type 2 diabetes mellitus with stage 3a chronic kidney disease, with long-term current use of insulin (HCC)] Onset: 09-14-2022 Episodic Other circulatory disease (12 sources) Electrocardiogram abnormal; Translations: [Abnormal electrocardiogram [ECG] [EKG]] Onset: 01-23-2011 Resolved: 02-26-2017 01-23-2011 Episodic Other connective tissue disease (10 sources) Subacromial bursitis; Translations: [Full thickness rotator cuff tear] Onset: 08-05-2013 08-05-2013 Episodic Other connective tissue disease (2 sources) Full thickness rotator cuff tear; Translations: [Unspecified rotator cuff tear or rupture of unspecified shoulder, not specified as traumatic] Onset: 08-05-2013 08-05-2013 Episodic Other connective tissue disease (20 sources) Neuropathic pain; Translations: [Neuralgia and neuritis, unspecified] Onset: 08-08-2018 08-08-2018 Episodic Other diseases of veins and lymphatics (20 sources) Peripheral venous insufficiency; Translations: [Venous insufficiency (chronic) (peripheral)] Onset: 09-28-2020 09-28-2020 Episodic Other lower respiratory disease (12 sources) Dyspnea; Translations: [Dyspnea, unspecified] Onset: 08-01-2011 Resolved: 02-26-2017 08-01-2011 Episodic Other nervous system disorders (20 sources) Muscle twitch; Translations: [Fasciculation] Onset: 01-10-2021 01-10-2021 Episodic Other non-traumatic joint disorders (6 sources) Stiffness of unspecified shoulder, not elsewhere classified; Translations: [Stiffness of unspecified shoulder, not elsewhere classified] Onset: 08-05-2013 08-05-2013 Episodic Other skin disorders (20 sources) Hyperhidrosis; Translations: [Generalized hyperhidrosis] Onset: 04-20-2015 04-20-2015 Episodic Respiratory failure; insufficiency; arrest (6 sources) Acute respiratory failure; Translations: [Acute respiratory failure, unspecified whether with hypoxia or hypercapnia] Onset: 02-26-2017 02-26-2017 Episodic Spondylosis; intervertebral disc disorders; other back problems (20 sources) Lumbar radiculopathy; Translations: [Radiculopathy, lumbar region] Onset: 09-18-2012 02-12-2020 Episodic Sprains and strains (12 sources) Sprain of other specified parts of unspecified shoulder girdle, initial encounter; Translations: [Supraspinatus (muscle) (tendon) sprain] Onset: 08-20-2013 08-21-2013 Episodic Thyroid disorders (3 sources) Atrophy of thyroid - acquired; Translations: [Atrophy of thyroid (acquired)] Onset: 06-12-2013 Episodic Unclassified (2 sources) Finding of body mass index; Translations: [Body mass index (BMI) 34.0-34.9, adult] Onset: 08-25-2014 08-25-2014 Results Test Name Value Interpretation Reference Range Facil ity Vital Signs Date Time Vital Sign Value Performing Clinician Ellen foreman 09-21-2023 12:55-0500 Body weight 91.17 kg Becca Jacobs APRN.CNP Work Phone: [facility] 09-21-2023 12:55-0500 Diastolic blood pressure 68 mm[Hg] Becca Jacobs APRN.CNP Work Phone: [facility] 09-21-2023 12:55-0500 Heart rate 67 /min Becca Jacobs APRN.CNP Work Phone: [facility] 09-21-2023 12:55-0500 Respiratory rate 16 /min Becca Jacobs APRN.CNP Work Phone: [facility] 09-21-2023 12:55-0500 SaO2% (BldA) [Mass fraction] 94 % Becca Jacobs TIPPLE MECHANIC.MGMT SPECIALIST Work Phone: [facility] 09-21-2023 12:55-0500 Systolic blood pressure 132 mm[Hg] Becca Jacobs TIPPLE MECHANIC.MGMT SPECIALIST Work Phone: [facility] 08-21-2023 08:54-0400 Body weight 91.17 kg Laura Florez APRN.MGMT SPECIALIST Work Phone: [facility] 08-21-2023 08:54-0400 Diastolic blood pressure 80 mm[Hg] Laura Florez APRN.MGMT SPECIALIST Work Phone: [facility] 08-21-2023 08:54-0400 Systolic blood pressure 126 mm[Hg] Laura Florez APRN.MGMT SPECIALIST Work Phone: [facility] 08-17-2023 10:17-0400 Body weight 91.63 kg Laura Florez APRN.MGMT SPECIALIST Work Phone: [facility] 08-17-2023 10:17-0400 Diastolic blood pressure 74 mm[Hg] Laura Florez TIPPLE MECHANIC.MGMT SPECIALIST Work Phone: [facility] 08-17-2023 10:17-0400 Systolic blood pressure 126 mm[Hg] Laura Florez TIPPLE MECHANIC.MGMT SPECIALIST Work Phone: [facility] 12-01-2022 09:56-0500 Body weight 91.17 kg Laura Florez TIPPLE MECHANIC.MGMT SPECIALIST Work Phone: [facility] 12-01-2022 09:56-0500 Diastolic blood pressure 70 mm[Hg] Laura Florez TIPPLE MECHANIC.MGMT SPECIALIST Work Phone: [facility] 12-01-2022 09:56-0500 Systolic blood pressure 126 mm[Hg] Laura Florez TIPPLE MECHANIC.MGMT SPECIALIST Work Phone: [facility] 09-18-2022 12:59-0500 Body weight 92.53 kg Becca Jacobs TIPPLE MECHANIC.MGMT SPECIALIST Work Phone: [facility] 09-18-2022 12:59-0500 Diastolic blood pressure 84 mm[Hg] Becca Haagen TIPPLE MECHANIC.MGMT SPECIALIST Work Phone: [facility] 09-18-2022 12:59-0500 Heart rate 74 /min Becca Haagen TIPPLE MECHANIC.MGMT SPECIALIST Work Phone: [facility] 09-18-2022 12:59-0500 Respiratory rate 18 /min Becca Haagen TIPPLE MECHANIC.MGMT SPECIALIST Work Phone: [facility] 09-18-2022 12:59-0500 SaO2% (BldA) [Mass fraction] 92 % Becca Haagen TIPPLE MECHANIC.MGMT SPECIALIST Work Phone: [facility] 09-18-2022 12:59-0500 Systolic blood pressure 130 mm[Hg] Becca Haagen TIPPLE MECHANIC.MGMT SPECIALIST Work Phone: [facility] 07-18-2022 11:41-0400 Body weight 92.08 kg Laura Florez TIPPLE MECHANIC.MGMT SPECIALIST Work Phone: [facility] 07-18-2022 11:41-0400 Diastolic blood pressure 80 mm[Hg] Laura Florez TIPPLE MECHANIC.MGMT SPECIALIST Work Phone: [facility] 07-18-2022 11:41-0400 Systolic blood pressure 124 mm[Hg] Laura Florez TIPPLE MECHANIC.MGMT SPECIALIST Work Phone: [facility] 06-16-2022 11:16-0400 Body weight 92.08 kg Becca Jacobs TIPPLE MECHANIC.MGMT SPECIALIST Work Phone: [facility] 06-16-2022 11:16-0400 Diastolic blood pressure 78 mm[Hg] Becca Haagen TIPPLE MECHANIC.MGMT SPECIALIST Work Phone: [facility] 06-16-2022 11:16-0400 Heart rate 76 /min Becca Haagen TIPPLE MECHANIC.MGMT SPECIALIST Work Phone: [facility] 06-16-2022 11:16-0400 Respiratory rate 18 /min Becca Haagen TIPPLE MECHANIC.MGMT SPECIALIST Work Phone: [facility] 06-16-2022 11:16-0400 SaO2% (BldA) [Mass fraction] 94 % Becca Jacobs APRN.MGMT SPECIALIST Work Phone: [facility] 06-16-2022 11:16-0400 Systolic blood pressure 110 mm[Hg] Becca Jacobs APRN.MGMT SPECIALIST Work Phone: [facility] 02-01-2022 08:06-0400 Body weight 93.89 kg Laura Florez APRN.MGMT SPECIALIST Work Phone: [facility] 02-01-2022 08:06-0400 Diastolic blood pressure 82 mm[Hg] Laura Florez APRN.MGMT SPECIALIST Work Phone: [facility] 02-01-2022 08:06-0400 Systolic blood pressure 118 mm[Hg] Laura Florez APRN.MGMT SPECIALIST Work Phone: [facility] 04-03-2017 12:57-0400 BMI (Body Mass Index) 32.44 kg/m2 Nisha [facility] Work Phone: 04-03-2017 12:57-0400 BP Diastolic 60 mm[Hg] [facility] Work Phone: 04-03-2017 12:57-0400 BP Systolic 104 mm[Hg] [facility] Work Phone: 04-03-2017 12:57-0400 Height 162.56 cm [facility] Work Phone: 04-03-2017 12:57-0400 Pulse (Heart Rate) 74 /min [facility] Work Phone: 04-03-2017 12:57-0400 Pulse Oximetry 96 % [facility]un[facility] Work Phone: 04-03-2017 12:57-0400 Respiratory Rate 18 /min [facility]ajunior [facility] Work Phone: 04-03-2017 12:57-0400 Weight 85.73 kg Nisha Ornelas [facility] Work Phone: 02-27-2017 12:58-0400 BMI (Body Mass Index) 31.8 kg/m2 [facility] Work Phone: 02-27-2017 12:58-0400 Body weight 84.05 kg Rema Petty RN [facility] Work Phone: 02-27-2017 12:58-0400 BP Diastolic 54 mm[Hg] Chica [facility] Work Phone: 02-27-2017 12:58-0400 BP Systolic 90 mm[Hg] Chica [facility] Work Phone: 02-27-2017 12:58-0400 Height 162.56 cm Chica [facility] Work Phone: 02-27-2017 12:58-0400 Pulse (Heart Rate) 68 /min Chica [facility] Work Phone: 02-27-2017 12:58-0400 Respiratory Rate 20 /min Chica [facility] Work Phone: 02-27-2017 12:58-0400 Weight 84.05 kg Chica [facility] Work Phone: 02-29-2016 10:55-0400 BSA (Body Surface Area) 1.92 m2 Chica [facility] Work Phone: 03-02-2015 11:19-0400 Heart rate 78 /min Rema Petty RN [facility] Work Phone: 06-19-2012 08:45-0400 Heart rate 424 ms Rema Petty RN [facility] Work Phone: Encounters Encounter Date Encounter Type Care Provider Facility Start: 09-21-2023 End: 09-22-[address] [facility] Facility:[facility] Start: 09-21-2023 End: 09-22-2023 ambulatory [facility] Facility:[facility] Start: 09-21-2023 End: 11-17-2023 Office outpatient visit 25 minutes Becca Jacobs APRN.MGMT SPECIALIST Work Phone: [facility] [place] Procedures Date Procedure Procedure Detail Performing Clinician Start: 06-16-2022 Urnls dip stick/tabl et rgnt auto w/o microscopy Becca Jacobs APRN.MGMT SPECIALIST Work Phone: Start: 04-03-2017 End: 04-03-2017 Follow Up Appt 6 months Rodriguez Hale Start: 04-03-2017 End: 04-03-2017 MMM Patrick Duenas MD Start: 02-27-2017 End: 02-27-2017 Documentation of current medications Rema Petty RN Start: 02-27-2017 End: 04-03-2017 TENA Duenas MD Start: 02-27-2017 End: 04-03-2017 Follow Up Appt 1 month Patrick Duenas MD Start: 02-20-2017 End: 02-20-2017 Nurse, Teaching, Wound Check (no charge) Patrick Duenas MD Start: 02-29-2016 End: 02-29-2016 TENA Duenas MD Start: 02-29-2016 End: 02-29-2016 Follow Up Appt 1 year Patrick Duenas MD Start: 03-02-2015 End: 04-03-2017 TENA Duenas MD Start: 03-02-2015 End: 03-03-2015 Documentation of current medications Patrick Duenas MD Start: 03-02-2015 End: 03-02-2015 Electrocardiogram, complete Patrick Jackson i, MD Start: 03-02-2015 End: 04-03-2017 Follow Up Appt 1 year Patrick Duenas MD Start: 08-25-2014 End: 08-25-2014 Dietary management education, guidance, and counseling Rema Petty RN Start: 08-25-2014 End: 08-25-2014 TENA Cochran PA-C Work Phone: Start: 08-25-2014 End: 08-25-2014 Follow Up Appt 6 months Charo chaudhry PA-C Work Phone: Start: 08-25-2014 End: 08-25-2014 Follow Up Appt Other Charo little PA-C Work Phone: Start: 02-19-2014 End: 02-19-2014 Follow Up Appt 6 months Rodriguez Hale Start: 02-19-2014 End: 02-19-2014 KENTRELL Duenas MD Start: 08-08-2013 End: 08-08-2013 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 Charo Cochran PA-C Work Phone: Start: 08-08-2013 End: 08-08-2013 Electrocardiogram, complete Charo Singh PA-C Work Phone: Start: 08-08-2013 End: 08-08-2013 Follow Up Appt 6 months Charo chaudhry PA-C Work Phone: Start: 08-08-2013 End: 08-27-2013 Nuclear stress test -adenosine Charo Cochran PA-C Work Phone: Start: 01-17-2013 End: 01-30-2013 CBC W Auto Differential panel - Blood Patrick Duenas MD Start: 01-17-2013 End: 01-30-2013 Echocardiography Patrick Duenas MD Start: 01-17-2013 End: 01-17-2013 Follow Up Appt 6 months Rodriguez Hale Start: 01-17-2013 End: 01-17-2013 MMM Patrick Duenas MD Start: 06-19-2012 End: 06-19-2012 Electrocardiogram, complete Patrick Jackson i, MD Start: 06-19-2012 End: 06-19-2012 Follow Up Appt 6 months Rodriguez Hale Start: 02-06-2012 End: 02-06-2012 Follow Up Appt 6 months Rodriguez Hale Start: 10-24-2011 End: 11-02-2011 Echocardiography Patrick Duenas MD Start: 10-24-2011 End: 10-24-2011 Electrocardiogram, complete Patrick Jackson i, MD Plan of Treatment Date Care Activity Detail Author Start: 03-02-2028 Urine microalbumin profile [facility] Start: 07-30-2024 Hepatitis C antibody, confirmatory test Dilated Retinal Exam [facility] Start: 03-21-2024 Hemoglobin A1c/Hemoglobin.total in Blood HbA1C [facility] Start: 03-19-2024 Hepatitis B screening URINE ALBUMIN:CREATININE RATIO [facility] Start: 03-19-2024 Hepatitis B surface antibody level LDL CHOLESTEROL [facility] Start: 09-21-2023 End: 12-21-2023 Basic metabolic 2000 panel - Serum or Plasma [facility] Work Phone: Immunizations Immunization Date Immunization Notes Care Provider Betty marino 08-05-2020 influenza, high-dose , quadrivalent vaccine (FLUZONE HIGH DOSE QUADRIVALENT) [facility] Work Phone: [facility] 08-05-2020 influenza virus vacc ine, unspecified formulation Laura Florez APRN.CNP Work Phone: [facility] 07-25-2019 influenza, high dose seasonal, preservative-free K[facility] Work Phone: [facility] 08-08-2018 influenza, high dose seasonal, preservative-free [facility] [facility] Work [facility]: [facility] 03-02-2018 tetanus toxoid, redu kamilla diphtheria toxoid, and acellular pertussis vaccine, adsorbed [facility] Work Phone: [facility] Work Phone: 08-05-2017 influenza, seasonal, injectable, preservative free [facility] Work Phone: [facility] Work Phone: 07-26-2017 influenza, high dose seasonal, preservative-free [facility] Work Phone: [facility] 08-07-2016 influenza, seasonal, injectable, preservative free [facility] Work Phone: [facility] Work Phone: 07-19-2016 influenza, high dose seasonal, preservative-free [facility] Work Phone: [facility] Work Phone: 12-27-2015 pneumococcal conjuga te vaccine, 13 valent [facility] Work Phone: [facility] 08-19-2015 influenza, high dose seasonal, preservative-free [facility] Work Phone: [facility] 08-13-2014 influenza, seasonal, injectable [facility] Work Phone: [facility] Work Phone: 07-30-2013 influenza virus vacc ine, unspecified formulation [facility] Work Phone: [facility] Work Phone: 08-14-2012 influenza virus vacc ine, unspecified formulation [facility] Work Phone: [facility] 08-24-2011 influenza virus vacc ine, unspecified formulation [facility] Work Phone: [facility] Work Phone: 10-19-2009 novel influenza-H1N1 -09, preservative-free, injectable [facility] Work Phone: [facility] Work Phone: 09-04-2007 influenza virus vacc ine, unspecified formulation [facility] Work Phone: [facility] Work Phone: 09-04-2006 influenza virus vacc ine, unspecified formulation [facility] Work Phone: [facility] Work Phone: 05-01-2006 pneumococcal polysaccharide vaccine, 23 valent [facility] Work Phone: [facility] 09-14-2005 influenza virus vacc ine, unspecified formulation [facility] Work Phone: [facility] Work Phone: 10-16-2000 diphtheria and tetan us toxoids, adsorbed for pediatric use [facility] Work Phone: [facility] Work Phone: Payers Date Payer Category Payer Medicare [id number] 2015 Medicare [id number] 2015 Private Health Insurance HUMANA HUMANA MEDICARE SUPPLEMENT [id number] 2015-Present [phone] [address] [address] [place] [address] Indemnity [id number] 2015 Private Health Insurance HUMANA HUMANA MEDICARE SUPPLEMENT [id number] 2015-Present [phone] [address] [address] [place] [address] Indemnity [id number] 2002 Medicare MEDICARE MEDICAR E A AND B [id number] 2002-Present [phone] [address] [address] [place] [address] Medicare [id number] 2002 Medicare MEDICARE MEDICAR E A AND B [id number] 2002-Present [phone] [place] [address] Medicare [id number] 2002 Medicare [id number] Social History Date Type Detail Facility Tobacco smoking stat [facility] Never smoked tobacco [facility] Work Phone: Start: 12-05-2021 End: 09-21-2023 Alcohol intake Current non-drinker of alcohol (finding) [facility] Start: 08-05-2020 End: 09-28-2020 History SDOH Alcohol Frequency 1 [facility] Start: 07-02-2020 End: 03-18-2023 History SDOH Social Connections Phone 5 [facility] Start: 09-28-2020 End: 03-18-2023 History SDOH Social Connections Get Together 2 [facility] Start: 09-28-2020 History SDOH Social Connections Religion 98 [facility] Start: 07-02-2020 End: 03-18-2023 History SDOH Social Connections Living 4 [facility] Start: 07-02-2020 End: 03-18-2023 History SDOH Physical Activity DPW 0 [facility] Start: 09-28-2020 History SDOH Stress 3 [facility] Start: 07-02-2020 Education 12 [facility] Start: 1935 Sex Assigned At Female [facility] Start: 11-13-2021 End: 09-18-2022 Exposure to SARS-CoV-2 (event) Not sure [facility] Start: 07-02-2020 End: 03-18-2023 History of Social function [facility] Start: 07-02-2020 End: 03-18-2023 Social connection and isolation panel [facility] Do you belong to any clubs or organizations such as temple groups, unions, fraternal or athletic groups, or school groups? No [facility] Are you now , , , , never or living with a partner? [facility] How often to you hav e a drink containing alcohol? Never [facility] Average Number of Drinks Not on file [facility] Do you feel stress - tense, restless, nervous, or anxious, or unable to sleep at night because your mind is troubled all the time - these days [OSQ] Not at all [facility] (I/We) worried wheth er (my/our) food would run out before (I/we) got money to buy more. Never true [facility] Start: 01-25-2020 Gender identity Identifies as female gender (finding) [facility] Start: 01-25-2020 Sexual orientation Heterosexual (finding) [facility] Medical Equipment Procedure Code Equipment Code Equipment Origin al Text Equipment Identifier Dates Start: 01-14-2021 End: 02-02-2023 Goals Date Patient Goal Desired Activity /State Personal health goal Personal health goal Clinical Notes 08-08-2018 to 09-21-2023 Patient InstructionsBecca Jcaobs APRN.MGMT SPECIALIST - 09/21/2023 1:06 PM EST Note Date & Type Note Facility 09-21-2023 Note HNO ID: [id number] Author: Becca Jacobs APRN.MGMT SPECIALIST Service: ? Author Type: Nurse Practitioner Type: Progress Notes Filed: 09/21/2023 4:58 PM Note Text: This is a 88 year old female who presents today with: Patient presents with: Follow Up: 6 month HISTORY OF PRESENT ILLNESS: Gabrielle Claire is a 88 year old female. Patient presents with: Follow Up: 6 month Pt presents today for 6 month follow-up. DM: Reports overall feeling well. Medication side effects: No. Home sugar checks: some. Reports nothing really high or low. Hypoglycemic spells: Yes -- she does get some low sugars. Watching diet: Yes. Unexpected weight loss: No. Polyuria, polydipsia: No. Vision Changes: No. Foot lesions or numbness or pain: no, but sometimes her hands will go to sleep. HTN: Patient is compliant with meds Yes Monitors bp at home: No. Denies side effects: No. Chest pain: No. Dyspnea: No. Edema: chronic swelling of the RLE. . Palpitations: no Syncope: No. Headache: No. Dizziness: No. HYPERLIPIDEMIA: Patient is taking medications: Yes. Patient is watching diet: Yes. Patient denies myalgias: Yes. Patient denies gi upset: Yes HYPOTHYROID: Patient is compliant with medications: Yes Patient has changes in energy: Yes - fatigue Patient has changes in hair or skin: No Patient has temperature intolerance: trouble with skin. Patient has weight changes: No Skin irritation at the anterior perineum. Has been there for awhile. Using bag balm to the area. Gerd: Stable on PPI. Mood: Stable on prozac. PAST MEDICAL HISTORY: PAST MEDICAL HISTORY Diagnosis Date Atherosclerotic heart disease of zuni coronary artery without angina pectoris Benign hypertension 03/30/2016 Cardiopathy nonishchemic Cataracts, bilateral Chronic congestive heart failure (HCC) 06/04/2017 Compression fracture 06/26/2015 [facility] - see scanned documents Depression 11/18/2013 Diverticulosis of colon (without mention of hemorrhage) Diverticulosis Esophageal reflux Essential hypertension, benign Exostosis hard palate, since childhood Hiatal hernia 06/26/2015 [facility] - see scanned documents 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 Hyperlipidemia LDL goal < 100 11/18/2013 Hypothyroidism 2011 Lumbago Lumbar degenerative disc disease 06/20/2012 Lumbar disc disease with radiculopathy 09/18/2012 Neurogenic bladder 01/28/2015 Nonischemic cardiomyopathy (HCC) Osteoarthrosis, unspecified whether generalized or localized, unspecified site Other bursitis of knee, right knee Other cataract Personal history of colonic polyps Colon polyps Presence of right artificial hip joint Presence of right artificial knee joint Pure hypercholesterolemia RLS (restless legs syndrome) Squamous cell skin cancer, jawline 01/30/2015 BUSHRA (stress urinary incontinence, female) 08/18/2016 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 Bunion ESOPHAGOGASTRODUODENOSCOPY TRANSORAL DIAGNOSTIC 08/11/13 EGD ESOPHAGOGASTRODUODENOSCOPY TRANSORAL DIAGNOSTIC 11/28/13 EGD ESOPHAGOGASTRODUODENOSCOPY TRANSORAL DIAGNOSTIC 07/19/2015 EGD LAMINECTOMY W/O FFD 1/2 VERT SEG LUMBAR Laminectomy, lumbar, buldging disc, MAL LESION NECK,HAND,SCAL 1.1-2CM 02/27/15 SCC in situ left neck PAST SURGICAL HISTORY OF 2010 CATARACT REMOVAL BOTH EYES TOTAL HIP REPLACEMENT Right 12/19/2017 [facility] ALLERGIES Codeine, Diclofenac, Lisinopril, and Metformin MEDICATIONS Current Outpatient Medications Medication Sig estradiol (ESTRACE) 0.01 % (0.1 mg/gram) vaginal cream Use 1 g vaginally as directed. Insert 1 gm vaginally every night x 14 nights then insert 1 gm vaginally twice weekly potassium chloride (KLOR-CON 10) 10 mEq tablet Take 2 tablets by mouth daily with breakfast. clobetasol (TEMOVATE) 0.05 % ointment Apply 1 application to affected area twice daily. TO AFFECTED AREA for 4 weeks and then at bedtime. Insulin [place], Disposable, (BD ULTRAFINE III MINI PEN) 31 gauge x 3/16 1 Each one time a week. nystatin (MYCOSTATIN) powder Apply 1 application to affected area four times daily. omeprazole (PRILOSEC) 40 mg capsule Take 1 capsule by mouth once daily. FLUoxetine (PROZAC) 10 mg capsule Take 1 capsule by mouth once daily. Take with 20 mg capsule for total daily dose of 30 mg. levothyroxine (SYNTHROID) 75 mcg tablet TAKE 1 TABLET BY MOUTH ONCE DAILY ON EMPTY STOMACH FOR THYROID meloxicam (MOBIC) 15 mg tablet Take 1 tablet by mouth once daily. carvedilol (COREG) 12.5 mg tablet Take 1 tablet by (more content not included)... [facility] 09-21-2023 Instructions Becca Jacobs APRN.CNP - 09/21/2023 1:29 PM EST Get labs. Try the clobetasol in that spot for 2 weeks. If no improvement, let us know. Continue the other same medications. documented in this encounter [facility] 09-21-2023 History of Present illness Narrative This is a 88 year old female who presents today with: Patient presents with: Follow Up: 6 month HISTORY OF PRESENT ILLNESS: Gabrielle Claire is a 88 year old female. Patient presents with: Follow Up: 6 month Pt presents today for 6 month follow-up. DM: Reports overall feeling well. Medication side effects: No. Home sugar checks: some. Reports nothing really high or low. Hypoglycemic spells: Yes -- she does get some low sugars. Watching diet: Yes. Unexpected weight loss: No. Polyuria, polydipsia: No. Vision Changes: No. Foot lesions or numbness or pain: no, but sometimes her hands will go to sleep. HTN: Patient is compliant with meds Yes Monitors bp at home: No. Denies side effects: No. Chest pain: No. Dyspnea: No. Edema: chronic swelling of the RLE. . Palpitations: no Syncope: No. Headache: No. Dizziness: No. HYPERLIPIDEMIA: Patient is taking medications: Yes. Patient is watching diet: Yes. Patient denies myalgias: Yes. Patient denies gi upset: Yes HYPOTHYROID: Patient is compliant with medications: Yes Patient has changes in energy: Yes - fatigue Patient has changes in hair or skin: No Patient has temperature intolerance: trouble with skin. Patient has weight changes: No Skin irritation at the anterior perineum. Has been there for awhile. Using bag balm to the area. Gerd: Stable on PPI. Mood: Stable on prozac. PAST MEDICAL HISTORY: PAST MEDICAL HISTORY Diagnosis Date Atherosclerotic heart disease of zuni coronary artery without angina pectoris Benign hypertension 03/30/2016 Cardiopathy nonishchemic Cataracts, bilateral Chronic congestive heart failure (HCC) 06/04/2017 Compression fracture 06/26/2015 [facility] - see scanned documents Depression 11/18/2013 Diverticulosis of colon (without mention of hemorrhage) Diverticulosis Esophageal reflux Essential hypertension, benign Exostosis hard palate, since childhood Hiatal hernia 06/26/2015 [facility] - see scanned documents 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 Hyperlipidemia LDL goal < 100 11/18/2013 Hypothyroidism 2011 Lumbago Lumbar degenerative disc disease 06/20/2012 Lumbar disc disease with radiculopathy 09/18/2012 Neurogenic bladder 01/28/2015 Nonischemic cardiomyopathy (HCC) Osteoarthrosis, unspecified whether generalized or localized, unspecified site Other bursitis of knee, right knee Other cataract Personal history of colonic polyps Colon polyps Presence of right artificial hip joint Presence of right artificial knee joint Pure hypercholesterolemia RLS (restless legs syndrome) Squamous cell skin cancer, jawline 01/30/2015 BUSHRA (stress urinary incontinence, female) 08/18/2016 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 Bunion ESOPHAGOGASTRODUODENOSCOPY TRANSORAL DIAGNOSTIC 08/11/13 EGD ESOPHAGOGASTRODUODENOSCOPY TRANSORAL DIAGNOSTIC 11/28/13 EGD ESOPHAGOGASTRODUODENOSCOPY TRANSORAL DIAGNOSTIC 07/19/2015 EGD LAMINECTOMY W/O FFD 1/ VERT SEG LUMBAR Laminectomy, lumbar, buldging disc, MAL LESION NECK,HAND,SCAL 1.1-2CM 02/27/15 SCC in situ left neck PAST SURGICAL HISTORY OF 2010 CATARACT REMOVAL BOTH EYES TOTAL HIP REPLACEMENT Right 12/19/2017 [facility] ALLERGIES Codeine, Diclofenac, Lisinopril, and Metformin MEDICATIONS Current Outpatient Medications Medication Sig estradiol (ESTRACE) 0.01 % (0.1 mg/gram) vaginal cream Use 1 g vaginally as directed. Insert 1 gm vaginally every night x 14 nights then insert 1 gm vaginally twice weekly potassium chloride (KLOR-CON 10) 10 mEq tablet Take 2 tablets by mouth daily with breakfast. clobetasol (TEMOVATE) 0.05 % ointment Apply 1 application to affected area twice daily. TO AFFECTED AREA for 4 weeks and then at bedtime. Insulin [place], Disposable, (BD ULTRAFINE III MINI PEN) 31 gauge x 3/16 1 Each one time a week. nystatin (MYCOSTATIN) powder Apply 1 application to affected area four times daily. omeprazole (PRILOSEC) 40 mg capsule Take 1 capsule by mouth once daily. FLUoxetine (PROZAC) 10 mg capsule Take 1 capsule by mouth once daily. Take with 20 mg capsule for total daily dose of 30 mg. levothyroxine (SYNTHROID) 75 mcg tablet TAKE 1 TABLET BY MOUTH ONCE DAILY ON EMPTY STOMACH FOR THYROID meloxicam (MOBIC) 15 mg tablet Take 1 tablet by mouth once daily. carvedilol (COREG) 12.5 mg tablet Take 1 tablet by mouth twice daily. FLUoxetine (PROZAC) 20 mg capsule Take 1 capsule by mouth once daily. pramipexole (MIRAPEX) 0.125 mg tablet Take 1-2 tablets by mouth daily at bedtime. simvastatin (ZOCOR) 40 mg tablet Take 1 tablet by mouth daily at bedtime. dulaglutide (TRULICITY) 0.75 mg/0.5 mL pen injector Inject 0.75 mg subcutaneously one time a week. losartan (COZAAR) 50 mg tablet Take 1 tablet by mouth once daily. Insulin Syringe-Needle U-100 (BD INSULIN SYRINGE) 0.3 mL 29 gauge x 1/2 syrg USE 1 SYRINGE FOR EACH INSULIN DOSE ONCE PER DAY blood sugar diagnostic ([employer] VERIO TEST STRIPS) test strip 1 Strip once daily. Test blood sugar(s) 1 daily. Dx: Type 2 DM - Controlled E11.9 Insulin: No albuterol HFA (VENTOLIN HFA) 90 mcg/actuation inhaler Inhale 2 Puffs as instructed every 4 hours as needed for wheezing/shortness of breath. cyclobenzaprine (FLEXERIL) 10 mg tablet Take 1 tablet by mouth three times daily as needed. melatonin 10 mg cap One tablet at bedtime. For insomnia furosemide (LASIX) 20 mg tablet Take 20 mg by mouth as needed. loperamide HCl (LOPERAMIDE ORAL) Take 10 mg by mouth as needed. Lancets lancets Test blood sugar(s) 1 times daily. Dx: E11.22 Insulin: No budesonide-formoterol (SYMBICORT) 160-4.5 mcg/actuation inhaler Inhale 2 Puffs as instructed twice daily. ferrous sulfate (IRON ORAL) Take 325 mg by mouth once daily. aspirin, enteric coated (ECOTRIN LOW STRENGTH) 81 mg ORAL EC tablet Take 1 tablet by mouth once daily. insulin 70/30 NPH/regular units/mL (NOVOLIN 70/30 U-100 INSULIN) 100 unit/mL suspension Inject 14 Units subcutaneously twice daily with meals. No current facility-administered medications for this visit. FAMILY HISTORY Problem Relation Age of Onset None Mother Prostate Cancer Father Diabetes Sister Asthma Sister Colon Cancer Sister Diabetes Sister Cancer Brother throat cancer No Known Problems Daughter Heart Attack Daughter Social History Tobacco Use Smoking status: Never Smokeless tobacco: Never Vaping Use Vaping Use: Never used Substance Use Topics Alcohol use: No Drug use: No EXAM: BP 132/68 Pulse 67 Resp 16 Wt 91.2 kg (201 lb) SpO2 94% BMI 34.50 kg/m PHYSICAL EXAM: General Appearance: Well appearing, alert, in no acute distress, well-hydrated, well nourished.. Skin: Skin color, texture, turgor normal, no suspicious rashes or lesions. Attempted to view area with patient standing with difficulty. Did not want further exam. Head: Normocephalic, no masses, lesions, tenderness or abnormalities. Eyes: Anicteric sclera. Extraocular movements are intact. . Lungs: Lungs clear to auscultation. No wheezing, rhonchi, rales.. Heart: RRR without murmur, gallop, or rubs. No ectopy. Extremities: No deformities, edema, skin discoloration, clubbing or cyanosis. Good capillary refill. . Neurologic: Gait normal. ASSESSMENT/PLAN: 1. Type 2 diabetes mellitus with stage 3a chronic kidney disease, with long-term current use of insulin ([facility]) - ICD9: 250.40, 585.3, V58.67, ICD10: E11.22, N18.31, Z79.4 (primary diagnosis) - Controlled - Continue current medications - HGB A1C - DULAGLUTIDE 0.75 MG/0.5 ML SUBCUTANEOUS PEN INJECTOR 2. Hypokalemia - ICD9: 276.8, ICD10: E87.6 - BASIC METABOLIC PNL 3. Situational depression - ICD9: 309.0, ICD10: F43.21 Controlled on current medication regimen. - FLUOXETINE 10 MG CAPSULE - FLUOXETINE 20 MG CAPSULE 4. Gastroesophageal reflux disease without esophagitis - ICD9: 530.81, ICD10: K21.9 Stable. - OMEPRAZOLE 40 MG CAPSULE,DELAYED RELEASE 5. Hypothyroidism due to acquired atrophy of thyroid - ICD9: 244.8, 246.8, ICD10: E03.4 - TSH BLD - LEVOTHYROXINE 75 MCG TABLET 6. Fatigue, unspecified type - ICD9: 780.79, ICD10: R53.83 - CBC + DIFF 7. Essential (primary) hypertension - ICD9: 401.9, ICD10: I10 - Controlled - Continue current medications - Recommend home blood pressure monitoring, to bring results to next visit - Encouraged sodium restriction, DASH or Mediterranean diet - Recommend regular aerobic exercise - CARVEDILOL 12.5 MG TABLET - LOSARTAN 50 MG TABLET 8. Restless leg - ICD9: 333.94, ICD10: G25.81 - PRAMIPEXOLE 0.125 MG TABLET 9. Skin irritation - ICD9: 709.9, ICD10: R23.8 Difficult to adequately visualize in this position. Suspect fissure. Will start short coarse of clobetasol, which patient believes she already has at home. If no improvement/worsening in the next 2 weeks, will need more thorough exam. Discussed treatment plan and patient voices understanding. Patient's questions answered appropriately. Medications and potential side effects were discussed and patient voices understanding. Return to the office as scheduled or as needed for worsening/no improvement. Becca Jacobs APRN.MGMT SPECIALIST documented in this encounter [facility] documented in this encounter [facility]10-17-2023 NoteHNO ID: [id number] Author: Laura Florez APRN.MGMT SPECIALIST Service: ? Author Type: Nurse Practitioner Type: Progress Notes Filed: 08/21/2023 9:32 AM Note Text: Some documentation from previous visit of 08/17/2023 was copied and pasted, documentation has been reviewed and edited as necessary for today's visit. Gabrielle Claire is a 88 year old No obstetric history on file. who presents today for pessary insertion/cleaning. She wears a size 1 ring pessary. She returns today complaints of feeling of pressure and that pessary is sitting too low. Slight increase in incontinence. Unable to insert vaginal estrogen applicator under pessary. - 4 days ago, Changed from Size 2 incontinence dish with support to size 1 ring with support due to vaginal atrophy after having pessary out for 2 months and feeling uncomfortable. EXAM: pleasant, well developed, well nourished, in no apparent distress Pelvic: Bartholin's, urethra and Prestbury's glands were normal. The ring with support pessary was removed. Vagina more pliable since pessary reinserted so the size 1 incontinence dish with support pessary inserted using Trimo-frias. More comfortable than last week. ASSESSMENT/PLAN: 1. Problem with vaginal pessary, subsequent encounter - ICD9: V58.89, 996.76, ICD10: T83.9XXD (primary diagnosis) - The size 1 incontinence dish with support pessary was inserted, patient tolerated the procedure well and the device is comfortable. - Encouraged to try to use estrogen cream to vaginal opening - The size 1 ring with support was cleaned and sent home with pt 2. Encounter for fitting and adjustment of pessary - ICD9: V53.99, ICD10: Z46.89 See above Follow-up in 3 months and as needed. Laura Florez APRN.MGMT SPECIALIST I spent a total of 25 minutes on the date of the service which included preparing to see the patient, [id number] patient care, completing clinical documentation, obtaining and/or reviewing separately obtained history, performing a medically appropriate examination, and counseling and educating the patient/family/caregiver.[facility]10-[facility]23 History of Present illness Narrative* Laura Florez APRN.MGMT SPECIALIST - 08/21/2023 8:50 AM EDT Some documentation from previous visit of 08/17/2023 was copied and pasted, documentation has been reviewed and edited as necessary for today's visit. Gabrielle Claire is a 88 year old No obstetric history on file. who presents today for pessary insertion/cleaning. She wears a size 1 ring pessary. She returns today complaints of feeling of pressure and that pessary is sitting too low. Slight increase in incontinence. Unable to insert vaginal estrogen applicator under pessary. - 4 days ago, Changed from Size 2 incontinence dish with support to size 1ring with support due to vaginal atrophy after having pessary out for 2 months and feeling uncomfortable. EXAM: pleasant, well developed, well nourished, in no apparent distress Pelvic: Bartholin's, urethra and Prestbury's glands were normal. The ring with support pessary was removed. Vagina more pliable since pessary reinserted so the size 1 incontinence dish with support pessary inserted using Trimo-frias. More comfortable than last week. ASSESSMENT/PLAN: 1. Problem with vaginal pessary, subsequent encounter - ICD9: V58.89, 996.76, ICD10: T83.9XXD (primary diagnosis) - The size 1 incontinence dish with support pessary was inserted, patient tolerated the procedure well and the device is comfortable. - Encouraged to try to use estrogen cream to vaginal opening - The size 1 ring with support was cleaned and sent home with pt 2. Encounter for fitting and adjustment of pessary - ICD9: V53.99, ICD10: Z46.89 See above Follow-up in 3 months and as needed. Laura Florez APRN.CNP I spent a total of 25 minutes on the date of the service which included preparing to see the patient, [id number] patient care, completing clinical documentation, obtaining and/or reviewing separately obtained history, performing a medically appropriate examination, and counseling and educating the patient/family/caregiver. documented in this encounterFairfield [facility] Center10-16-2023 Miscellaneous Notes* Telephone Encounter - Mckenna Garcia RN - 08/20/2023 11:31 AM EDT Patient's daughter called and confirmed appointment for tomorrow. Scheduled with 08/21 9:00 AM. MCKENNA GARCIA RN * Telephone Encounter - Jeannette Russell RN - 08/20/2023 11:25 AM EDT Called patients daughter, she is going to call the patient to see if she can come at 9 am tomorrow.Will call back. Jeannette Russell RN * Telephone Encounter - Latricia Mcghee APRN.CNP - 08/20/2023 11:07 AM EDT Put her on Laura's schedule for tomorrow at 9. Latricia Mcghee APRN.CNP * Telephone Encounter - Kait Spence LPN - 08/20/2023 8:31 AM EDT Pt's daughter calling and stated that her mother was seen by Laura on Sunday and had a new pessary reinserted. Daughter is reporting that her mother thinks the pessary has dropped and is needing it reinserted. Please advise is you can see her anywhere on your schedule today. We need to contact pt's daughter Leslie at [phone].Kait Spence LPN documented in this encounterFairfield Medical Center10-13-2023 NoteHNO ID: [id number] Author: Laura Florez APRN.MGMT SPECIALIST Service: ? Author Type: Nurse Practitioner Type: Progress Notes Filed: 08/17/2023 11:41 AM Note Text: Cartoon Animator offered: Patient declines. Gabrielle Claire is a 88 year old No obstetric history on file. who presents today for pessary insertion/cleaning. She wears a size 2 incontinence dish with support pessary which has been out since 2 1/2 months due to vaginal erosion and treatment for BV. She returns today with complaints of increased incontinence. She has not had vaginal discharge. She has not had vaginal bleeding. EXAM: pleasant, well developed, well nourished, in no apparent distress Pelvic: Bartholin's, urethra and Prestbury's glands were normal. Vaginal exam indicated no erythema, no ulcerations, and no vaginal discharge. The size 2 incontinence dish with support pessary was cleaned and replaced using Trimo-frias but very tight fit with knob extending into vagina and uncomfortable for Gabrielle. Appears to be caused by increase in vaginal atrophy. Size 1 incontinence dish with support pessary inserted and much more comfortable temporarily and then become uncomfortable again and asked for it to be removed. Replaced with size 1 ring with support using Trimo-frias and is comfortable. ASSESSMENT/PLAN: 1. Vaginal erosion secondary to pessary use, subsequent encounter - ICD9: V58.89, ICD10: T83.89XD, N89.8 (primary diagnosis) - resolved 2. Encounter for pessary maintenance - ICD9: V53.99, ICD10: Z46.89 - Changed from Size 2 incontinence dish with support to size 1 ring with support due to vaginal atrophy and feeling uncomfortable. The pessary was inserted, patient tolerated the procedure well and the device is comfortable. - Estrace cream started 3. Cystocele, midline - ICD9: 618.01, ICD10: N81.11 Laura Florez APRN.ALEXANDRA I spent a total of 35 minutes on the date of the service which included preparing to see the patient, [id number] patient care, completing clinical documentation, obtaining and/or reviewing separately obtained history, performing a medically appropriate examination, and counseling and educating the patient/family/caregiver.[facility]10-13-2023 Miscellaneous Notes* Addendum Note - Laura Florez APRN.CNP - 08/17/2023 11:41 AM EDTAddended by: LAURA FLOREZ on: 08/17/2023 11:41 AM Modules accepted: Orders documented in this encounterFairfield Medical Center10-13-2023 History of Present illness Narrative* Laura Florez APRN.CNP - 08/17/2023 10:15 AM EDT Cartoon Animator offered: Patient declines. Gabrielle Claire is a 88 year old No obstetric history on file. who presents today for pessary insertion/cleaning. She wears a size 2 incontinence dish with support pessary which has been out since 2 1/2 months due to vaginal erosion and treatment for BV. She returns today with complaints of increased incontinence. She has not had vaginal discharge. She has not had vaginal bleeding. EXAM: pleasant, well developed, well nourished, in no apparent distress Pelvic: Bartholin's, urethra and Prestbury's glands were normal. Vaginal exam indicated no erythema, noulcerations, and no vaginal discharge. The size 2 incontinence dish with support pessary was cleaned and replaced using Trimo-frias but verytight fit with knob extending into vagina and uncomfortable for Gabrielle. Appears to be caused by increase in vaginal atrophy. Size 1 incontinence dish with support pessary inserted and much more comfortable temporarily and then become uncomfortable again and asked for it to be removed. Replaced with size 1 ring with support using Trimo-frias and is comfortable. ASSESSMENT/PLAN: 1. Vaginal erosion secondary to pessary use, subsequent encounter - ICD9: V58.89, ICD10: T83.89XD, N89.8 (primary diagnosis) - resolved 2. Encounter for pessary maintenance - ICD9: V53.99, ICD10: Z46.89 - Changed from Size 2 incontinence dish with support to size 1 ring with support due to vaginal atrophy and feeling uncomfortable. The pessary was inserted, patient tolerated the procedure well and the device is comfortable. - Estrace cream started 3. Cystocele, midline - ICD9: 618.01, ICD10: N81.11 Laura Florez APRN.MGMT SPECIALIST I spent a total of 35 minutes on the date of the service which included preparing to see the patient, [id number] patient care, completing clinical documentation, obtaining and/or reviewing separately obtained history, performing a medically appropriate examination, and counseling and educating the patient/family/caregiver. documented in this encounterFairfield Medical Center09-11-2023 Miscellaneous Notes* Telephone Encounter - Rei Thompson LPN - 07/16/2023 3:58 PM EDT Patient phones requesting refills as follows: Requested Prescriptions Pending Prescriptions Disp Refills potassium chloride (KLOR-CON 10) 10 mEq tablet 180 tablet 1 Sig: Take 2 tablets by mouth daily with breakfast. TANISHA 03/19/23 NOV 09/21/23 Please review and advise. Rei Thompson LPN documented in this encounterFairfield Medical Center08-04-2023 Miscellaneous Notes* Telephone Encounter - Nyla Ho RN - 06/08/2023 2:28 PM EDT Patient's daughter, Leslie, notified. Voiced understanding. Encouraged to call with prn questions/concerns. Nyla Ho RN * Telephone Encounter - Laura Florez APRN.CNP - 06/08/2023 12:45 PM EDT Her culture showed that the vaginal greg was transitioning so she can use OTC RepHesh to help the pH control the shift in the microbiome. I have also sent a prescription for clobetasol ointment for her to use on her vulva where she has itching. This will need to be applied twice a day for the next4 weeks and then at bedtime until her follow-up appointment with me at the end of July. If this does not significantly decrease the itching within the next few weeks, I recommend a vulvar biopsy. Laura Florez APRN.ALEXANDRA * Telephone Encounter - Sarah Stahl RN - 06/08/2023 9:30 AM EDT Patient's daughter calls and states that provider had prescribed clotrimazole/betamethasone cream at patient's last appointment. Daughter reports that this cream is not working for patient. Daughter asking if a different medication can be sent in? Please review and advise, Sarah Stahl RN documented in this encounterFairfield Medical Center07-28-2023 NoteHNO ID: [id number] Author: Laura Florez APRN.ALEXANDRA Service: ? Author Type: Nurse Practitioner Type: Progress Notes Filed: 06/01/2023 12:36 PM Note Text: Cartoon Animator offered: Patient declines. Accompanied by daughter. Gabrielle Claire is a 88 year old who presents today for pessary insertion/cleaning. She wears a size 2 incontinence dish with support pessary. She returns today with soreness to inner and outer top of vulva. No itching. She has not had problems with the pessary. She has not had vaginal discharge. She has not had vaginal bleeding. EXAM: pleasant, well developed, well nourished, in no apparent distress Pelvic: Bartholin's, urethra and Prestbury's glands were normal. The pessary was removed. Vaginal exam indicated erythema to inner vulva, erosions and 2 ulcerations to cervix and vaginal orta and yellow vaginal discharge. Anterior bilateral vulva with hypopigmentation. The pessary was cleaned and placed in a bag for her to take home. ASSESSMENT/PLAN: 1. Vaginal erosion secondary to pessary use, initial encounter ([facility]) - ICD9: 996.76, 623.8, ICD10: T83.89XA, N89.8 (primary diagnosis) - Pessary was not replaced to allow healing 2. Acute vulvitis - ICD9: 616.10, ICD10: N76.2 -Inner bilateral vulva erythematous. Anterior bilateral vulva with hypopigmentation - no itching, if it does not resolve and remains sore - consider vulvar biopsy and/or clobetasol. - CLOTRIMAZOLE-BETAMETHASONE 1 %-0.05 % TOPICAL CREAM 3. Vaginal discharge - ICD9: 623.5, ICD10: N89.8 - BACT/VIJI VAG GRAM STAIN 4. Cystocele, midline - ICD9: 618.01, ICD10: N81.11 Follow-up in 2 months Laura Florez APRN.MGMT SPECIALIST Medical Decision Making: Problems: Moderate: 1+ chronic illnesses with change Data: Unique test(s) ordered: 2 Risk: Moderate: Drug management and Moderate risk from testing/treatment Medical Decision Making Level: 4 - [facility]erateSelect [facility]-05-2023 Miscellaneous Notes* Telephone Encounter - Jeannette Main - 04/09/2023 2:01 PM EDT Finally able to speak with patient. She states she was out of town at her daughters for a few days.I went over Becca's message in detail and explained the lowering of the insulin. Patient wrote everything down and repeated it back to me with understanding. She will recheck labs again in 3 months. Jeannette Main * Telephone Encounter - Karen Cedeño Ma - 04/04/2023 12:53 PM EDT Letter mailed to pt notifying her we've been unable to reach her by phone and [employer]. Asked for call back and to speak with Triage Nurse. Karen Cedeño Ma * Telephone Encounter - Rei Thompson LPN - 03/27/2023 12:41 PM EDT Phoned pt on home phone, no answer, unable to leave message. Phoned pt's mobile number, unable to leave message d/t voicemail box is full. Rei Thompson LPN * Telephone Encounter - Becca Jacobs APRN.ALEXANDRA - 03/27/2023 12:29 PM EDT Can we please verify that patient is aware of medication changes. Becca Jacobs APRN.ALEXANDRA * Telephone Encounter - Bela Delatorre Ma - 03/23/2023 10:21 AM EDT [employer] message sent to pt, asking them to call back for results. Bela Delatorre MA * Telephone Encounter - Rei Thompson LPN - 03/21/2023 2:04 PM EDT Phoned pt, no answer, unable to leave message. Rei Thompson LPN * Telephone Encounter - Becca Jacobs APRN.CNP - 03/21/2023 12:57 PM EDT Can please let patient know that I received her lab results. Everything looks okay. Her diabetes control is really good. I'm actually worried that it may be too good, so I think we should lower her insulin a little bit. Lets lower her 70/30 down to 14 units twice daily. Lets have her recheck an A1Cin 3 months. The order is in. Becca Jacobs APRN.ALEXANDRA documented in this encounterFairfield Medical Center05-15-2023 NoteHNO ID: [id number] Author: Becca Jacobs APRN.CNP Service: ? Author Type: Nurse Practitioner Type: Progress Notes Filed: 03/19/2023 9:12 PM Note Text: This is a 87 year old female who presents today with: Patient presents with: Recheck: 6 month follow up HISTORY OF PRESENT ILLNESS: Gabrielle Claire is a 87 year old female. Patient presents with: Recheck: 6 month follow up DM: Reports overall feeling well. Medication side effects: No. Home sugar checks: occasionally Hypoglycemic spells: No. Watching diet: Yes. Unexpected weight loss: No. Polyuria, polydipsia: No. Vision Changes: No. Foot lesions or numbness or pain: No. HTN: Patient is compliant with meds Yes Monitors bp at home: No. Denies side effects: Yes. Chest pain: No. Dyspnea: No. Edema: No. Palpitations: No. Syncope: No. Headache: No. Dizziness: No. HYPERLIPIDEMIA: Patient is taking medications: Yes. Patient is watching diet: Yes. Patient denies myalgias: No. Patient denies gi upset: No CAD: Follows with Dr. Duenas, unsure of next visit. HYPOTHYROID: Patient is compliant with medications: Yes Patient has changes in energy: No Patient has changes in hair or skin: No Patient has temperature intolerance: No Patient has weight changes: No Mood: Prozac- no changes, mood has been fine. Pt c/o folds between groin and leg get raw . Been using her jibsfb-aa-kwt's powder that helps, but sometimes she forgets to take it. Refers that she also has some itchiness of the anterior chest -- uses a cream that will help some. PAST MEDICAL HISTORY: PAST MEDICAL HISTORY Diagnosis Date Atherosclerotic heart disease of zuni coronary artery without angina pectoris Benign hypertension 03/30/2016 Cardiopathy nonishchemic Cataracts, bilateral Chronic congestive heart failure (HCC) 06/04/2017 Compression fracture 06/26/2015 [facility] - see scanned documents Depression 11/18/2013 Diverticulosis of colon (without mention of hemorrhage) Diverticulosis Esophageal reflux Essential hypertension, benign Exostosis hard palate, since childhood Hiatal hernia 06/26/2015 [facility] - see scanned documents 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 Hyperlipidemia LDL goal < 100 11/18/2013 Hypothyroidism 2010 Lumbago Lumbar degenerative disc disease 06/20/2012 Lumbar disc disease with radiculopathy 09/18/2012 Neurogenic bladder 01/28/2015 Nonischemic cardiomyopathy (HCC) Osteoarthrosis, unspecified whether generalized or localized, unspecified site Other bursitis of knee, right knee Other cataract Personal history of colonic polyps Colon polyps Presence of right artificial hip joint Presence of right artificial knee joint Pure hypercholesterolemia RLS (restless legs syndrome) Squamous cell skin cancer, jawline 01/30/2015 BUSHRA (stress urinary incontinence, female) 08/18/2016 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 Bunion ESOPHAGOGASTRODUODENOSCOPY TRANSORAL DIAGNOSTIC 08/11/13 EGD ESOPHAGOGASTRODUODENOSCOPY TRANSORAL DIAGNOSTIC 11/28/13 EGD ESOPHAGOGASTRODUODENOSCOPY TRANSORAL DIAGNOSTIC 07/19/2015 EGD LAMINECTOMY W/O FFD 1/2 VERT SEG LUMBAR Laminectomy, lumbar, buldging disc, MAL LESION NECK,HAND,SCAL 1.1-2CM 02/27/15 SCC in situ left neck PAST SURGICAL HISTORY OF 2010 CATARACT REMOVAL BOTH EYES TOTAL HIP REPLACEMENT Right 12/19/2017 [facility] ALLERGIES Codeine, Diclofenac, Lisinopril, and Metformin MEDICATIONS Current Outpatient Medications Medication Sig insulin NPH-insulin regular injection Inject 16 Units subcutaneously twice daily with meals. losartan (COZAAR) 50 mg tablet Take 1 tablet by mouth once daily. Insulin Syringe-Needle U-100 (BD INSULIN SYRINGE) 0.3 mL 29 gauge x 1/2 syrg USE 1 SYRINGE FOR EACH INSULIN DOSE ONCE PER DAY potassium chloride (KLOR-CON 10) 10 mEq tablet Take 2 tablets by mouth daily with breakfast. blood sugar diagnostic (ONETOUCH VERIO TEST STRIPS) test strip 1 Strip once daily. Test blood sugar(s) 1 daily. Dx: Type 2 DM - Controlled E11.9 Insulin: No omeprazole (PRILOSEC) 40 mg capsule Take 1 capsule by mouth once daily. FLUoxetine (PROZAC) 10 mg capsule Take 1 capsule by mouth once daily. Take with 20 mg capsule for total daily dose of 30 mg. levothyroxine (SYNTHROID) 75 mcg tablet TAKE 1 TABLET BY MOUTH ONCE DAILY ON EMPTY STOMACH FOR THYROID meloxicam (MOBIC) 15 mg tablet Take 1 tablet by mouth once daily. carvedilol (COREG) 12.5 mg tablet Take 1 tablet by mouth twice daily. FLUoxetine (PROZAC) 20 mg capsule (more content not included)...[facility]04-01-2023 Miscellaneous Notes* Telephone Encounter - Breanne Rico LPN - 02/03/2023 11:15 AM EDT Notified daughter. Breanne Rico LPN * Telephone Encounter - Mauro Back MD - 02/03/2023 11:02 AM EDT Rx sent as requested. Keep f/u appointment next month as scheduled. * Telephone Encounter - Breanne Rico LPN - 02/03/2023 10:54 AM EDT Daughter called and pt is out of insulin and they are at the pharmacy now and was told a new rx is needed. Patient has been identified by name and date of : Yes, Provider Becca Jacobs CNP Date 02/03/23 Time 10:56 am Daughter phones for refill(s): Requested Prescriptions Pending Prescriptions Disp Refills insulin NPH-insulin regular injection 20 mL 1 Sig: Inject 16 Units subcutaneously twice daily with meals. Date of last office visit in primary care: 09/18/22 next apt 03/19/23 Last 2 Encounter Wt Readings: Date: Wt: 12/01/2022 91.2 kg (201 lb) 09/18/2022 92.5 kg (204 lb) Previous labs/tests for medication: Diabetes: Hemoglobin A1C (%) Date Value 09/18/2022 6.3 06/16/2022 6.9 10/06/2021 9.3 01/11/2021 9.7 Please advise. Thank you. Breanne Rico LPN documented in this encounterFairfield Medical Center03-31-2023 Miscellaneous Notes* Telephone Encounter - Colleen Duckworth LPN - 02/02/2023 1:06 PM EDT Patient phones requesting refills as follows: Requested Prescriptions Pending Prescriptions Disp Refills potassium chloride (KLOR-CON 10) 10 mEq tablet 180 tablet 1 Sig: Take 2 tablets by mouth daily with breakfast. TANISHA-09/18/22 Labs-09/18/22 NOV-03/19/23 med filled 10/18/22 Please review and advise. Colleen Duckworth LPN documented in this encounterFairfield Medical Center02-09-2023 Miscellaneous Notes* Telephone Encounter - Karolyn Flores Ma - 12/14/2022 5:03 PM EST Daughter notified of provider message. Verbalizes understanding. Karolyn Flores Ma * Telephone Encounter - Andrei Hills MD - 12/14/2022 3:57 PM EST She may feel a little tired with sugars at 84 but that is actually not hypoglycemic. She should feel normal in the 130s even if she often runs higher. If feels out of it, to er * Telephone Encounter - Sarah Stahl RN - 12/14/2022 3:28 PM EST Patient's daughter called and is concerned because patient's blood sugars in the middle of the night last night was 81 and 2 hours ago it was 84. Daughter reports that patient has felt shaky and out if it. Patient's normal fasting blood sugars is 200s. Per daughter patient was treated last week forUTI. Patient only checks blood sugar in morning. Patient takes Trulicity 0.75 once a week and 16 units insulin NPH twice a day with meals. Daughter had given patient m & m's and orange juice after blood sugar was 84. Asked daughter torecheck patient's blood sugar and it is now 136. Patient still reports to daughter that she still feels out of it No other symptoms noted per daughter. Answer Assessment - Initial Assessment Questions 1. SYMPTOMS: Shaky, out of it, [place] 2. ONSET: Last week it has happened. 3. BLOOD GLUCOSE: 2 hours ago it was 84 4. USUAL RANGE: Daughter states that it is 200s fasting 5. TYPE 1 or 2: Type 2 6. INSULIN: Trulicity one time a week; Novolin 70/30 morning and night; 16 units with meals twice daily 7. DIABETES PILLS: Denies 8. OTHER SYMPTOMS: Denies; Did have UTI a week ago. 9. LOW BLOOD GLUCOSE TREATMENT: Patient was given m & m's and orange juice; Blood Sugar currently is 136 Patient still feeling out of it 10. FOOD: M & Ms and orange juice. 11. ALONE: Daughter is with her Protocols used: Diabetes - Low Blood Dxekb-OWKML-RD * Telephone Encounter - Elvia Lee Ma - 12/14/2022 3:16 PM EST Triage nurse will call to speak to daughter Elvia Suarezjason Jeffrey * Telephone Encounter - Josselyn Hull - 12/14/2022 3:02 PM EST Gabrielle Claire is a patient of Becca Jacobs APRN.CNP today Daughter, Leslie called with concern thatpast few days her mother has low blood sugar. Today it was 81 and now 84 patient had a good lunch. Leslie stated she seems out of it and her Mom can feel she is too. Please call her at [phone]. Patient has been identified by name and birthdate. Duration of symptoms: days Person calling: daughter: Leslie Was an appointment scheduled: No Closing statement: Symptom Call: Thank you for [facility], your call is very important. A nurse will call in approximately 2-4 hours during business hours. If this is an emergency, please contact 911. Josselyn Hull documented in this encounterFairfield Medical Center02-09-2023 Miscellaneous Notes* Telephone Encounter - Cathy Chang APRN.ALEXANDRA - 12/14/2022 3:51 PM EST The following approved medication requests have been transmitted electronically. Requested Prescriptions Pending Prescriptions Disp Refills blood sugar diagnostic (ONETOUCH VERIO TEST STRIPS) test strip 50 Strip 11 Si Strip once daily. Test blood sugar(s) 1 daily. Dx: Type 2 DM - Controlled E11.9 Insulin: No Cathy Chang APRN.ALEXANDRA * Telephone Encounter - Josselyn Cuba Pss - 12/14/2022 3:01 PM EST Patient has been identified by name and date of : Yes Requested Prescriptions Pending Prescriptions Disp Refills blood sugar diagnostic (ONETOUCH VERIO TEST STRIPS) test strip 50 Strip 11 Si Strip once daily. Test blood sugar(s) 1 daily. Dx: Type 2 DM - Controlled E11.9 Insulin: No TANISHA-09/18/22 Labs-09/18/22 NOV-03/19/23 RX INSTRUCTIONS: Patient needs today, she is out. Patient aware RX will be sent to pharmacy. No need to notify patient. Josselyn Hull documented in this encounterFairfield Medical Center01-27-2023 NoteHNO ID: [id number] Author: Laura Florez APRN.CNP Service: ? Author Type: Nurse Practitioner Type: Progress Notes Filed: 12/01/2022 12:14 PM Note Text: Cartoon Animator offered: Patient declines. Accompanied by daughter. Gabrielle Claire is a 87 year old No obstetric history on file. who presents today for pessary insertion/cleaning. She wears a size 2 incontinence dish with support pessary. She returns today with no complaints. She has not had problems with the pessary. She has not had vaginal discharge. She has not had vaginal bleeding. Has had redness to bilateral groin. No itching but area gets sore. Has used pink salve and Gold Ribera powder. Redness has improved. EXAM: pleasant, well developed, well nourished, in no apparent distress Pelvic: Bartholin's, urethra and Prestbury's glands were normal. The pessary was removed. Vaginal exam indicated no ulcerations, no vaginal discharge, and 1 cm area of mild erythema. The pessary was cleaned and re-inserted without difficulty using Trimo-frias. Bilateral groin with normal skin, no redness. Powder in creases. ASSESSMENT/PLAN: 1. Encounter for pessary maintenance - ICD9: V53.99, ICD10: Z46.89 (primary diagnosis) The pessary was inserted, patient tolerated the procedure well and the device is comfortable. 2. Cystocele, midline - ICD9: 618.01, ICD10: N81.11 Follow-up 5-6 months. Can use Gold Ribera Friction Defense in addition to Gold Ribera powder to prevent chafing. Laura Florez APRN.ALEXANDRA I spent a total of 25 minutes on the date of the service which included preparing to see the patient, umpq-yb-cjul patient care, completing clinical documentation, obtaining and/or reviewing separately obtained history, performing a medically appropriate examination, counseling and educating the patient/family/caregiver, and communicating results to the patient/family/caregiver.[facility]01-27-2023 Instructions* Patient Instructions* Laura Florez APRN.CNP - 12/01/2022 10:33 AM EST [employer] documented in this [facility]01-27-[facility]23 History of Present illness Narrative* Laura Florez APRN.CNP - 12/01/2022 9:49 AM EST Cartoon Animator offered: Patient declines. Accompanied by daughter. Gabrielle Claire is a 87 year old No obstetric history on file. who presents today for pessary insertion/cleaning. She wears a size 2 incontinence dish with support pessary. She returns today with no complaints. She has not had problems with the pessary. She has not had vaginal discharge. She has not had vaginal bleeding. Has had redness to bilateral groin. No itching but area gets sore. Has used pink salve and Gold Ribera powder. Redness has improved. EXAM: pleasant, well developed, well nourished, in no apparent distress Pelvic: Bartholin's, urethra and Prestbury's glands were normal. The pessary was removed. Vaginal exam indicated no ulcerations, no vaginal discharge, and 1 cm area of mild erythema. The pessary was cleaned and re-inserted without difficulty using Trimo-frias. Bilateral groin with normal skin, no redness. Powder in creases. ASSESSMENT/PLAN: 1. Encounter for pessary maintenance - ICD9: V53.99, ICD10: Z46.89 (primary diagnosis) The pessary was inserted, patient tolerated the procedure well and the device is comfortable. 2. Cystocele, midline - ICD9: 618.01, ICD10: N81.11 Follow-up 5-6 months. Can use Gold Ribera Friction Defense in addition to Gold Ribera powder to preventchafing. Laura Florez APRN.CNP I spent a total of 25 minutes on the date of the service which included preparing to see the patient, [id number] patient care, completing clinical documentation, obtaining and/or reviewing separately obtained history, performing a medically appropriate examination, counseling and educating the pat ient/family/caregiver, and communicating results to the patient/family/caregiver. documented in this encounterFairfield [facility] Center12-14-2022 Miscellaneous Notes* Telephone Encounter - Jessica Rodriguez LPN - 10/18/2022 3:22 PM EST Last office visit: 09/18/22 Next appointment scheduled: 03/19/23 Last labs: 09/18/22 Patient phones requesting refills as follows: Requested Prescriptions Pending Prescriptions Disp Refills omeprazole (PRILOSEC) 40 mg capsule 90 capsule 1 Sig: Take 1 capsule by mouth once daily. Please review and advise. Jessica Rodriguez LPN documented in this [facility]12-14-2022 Miscellaneous Notes* Telephone Encounter - Rei Thompson LPN - 10/18/2022 3:07 PM EST Patient phones requesting refills as follows: Requested Prescriptions Pending Prescriptions Disp Refills insulin NPH-insulin regular injection 20 mL 1 Sig: Inject 16 Units subcutaneously twice daily with meals. [facility] 09/18/22 03/19/23 Please review and advise. Rei Thompson LPN documented in this [facility]12-14-2022 Miscellaneous Notes* Telephone Encounter - Rei Thompson LPN - 10/18/2022 3:06 PM EST Patient phones requesting refills as follows: Requested Prescriptions Pending Prescriptions Disp Refills FLUoxetine (PROZAC) 10 mg capsule 90 capsule 1 Sig: Take 1 capsule by mouth once daily. Take with 20 mg capsule for total daily dose of 30 mg. levothyroxine (SYNTHROID) 75 mcg tablet 90 tablet 1 Sig: TAKE 1 TABLET BY MOUTH ONCE DAILY ON EMPTY STOMACH FOR THYROID meloxicam (MOBIC) 15 mg tablet 90 tablet 1 Sig: Take 1 tablet by mouth once daily. carvedilol (COREG) 12.5 mg tablet 180 tablet 1 Sig: Take 1 tablet by mouth twice daily. FLUoxetine (PROZAC) 20 mg capsule 90 capsule 1 Sig: Take 1 capsule by mouth once daily. [facility] 09/18/22 03/19/23 Please review and advise. Rei Thompson LPN documented in this encounterFair[facility] Center12-14-2022 Miscellaneous Notes* Telephone Encounter - Rei Thompson LPN - 10/18/2022 3:05 PM EST Patient phones requesting refills as follows: Requested Prescriptions Pending Prescriptions Disp Refills potassium chloride (KLOR-CON 10) 10 mEq tablet 90 tablet 1 Sig: Take 2 tablets by mouth daily with breakfast. T[facility]IS[facility] 09/18/22 NOV 03/19/23 Please review and advise. Rei Thompson LPN documented in this encounterFairfield [facility] Center11-16-2022 Miscellaneous Notes* Telephone Encounter - Rei Thompson LPN - 09/20/2022 5:06 PM EST Pt notified of results/provider response. She verbalized understanding. Rei Thompson LPN * Telephone Encounter - Becca Jacobs APRN.ALEXANDRA - 09/20/2022 4:56 PM EST Can please let patient know that I receive her lab results. Everything looks good. The A1C (3 month average blood sugar) was 6.3 for an average glucose of 134, which is controlled. Her kidney function is improved. During the office visit, she did mention that she was occasionally getting some low blood sugars. Lets have her decrease her NPH insulin to 16 units twice daily. Becca Jacobs APRN.ALEXANDRA documented in this encounterFairfield [facility] Center11-14-2022 Instructions* Patient Instructions* Becca Jacobs APRN.ALEXANDRA - 09/18/2022 1:40 PM EST Continue the same medication. 2. Let me know if cough does not continue to improve or if it worsens. 3. Labs today. 4. Recheck in 6 months. documented in this encounterFairfield [facility] Center11-14-2022 History of Present illness Narrative* Becca Jacobs APRN.CNP - 09/18/2022 1:11 PM EST This is a 87 year old female who presents today with: Patient presents with: Acute Visit: Cough, shortness of breath, wheezing x2 weeks HISTORY OF PRESENT ILLNESS: Gabrielle Claire is a 87 year old female. Patient presents with: Acute Visit: Cough, shortness of breath, wheezing x2 weeks Pt presents today for follow-up. In the interim, she did message in a couple of weeks ago with possible asthma symptoms. She reports childhood hx of asthma. She has been using her rescue inhaler, as well as symbicort. She reports as of this time, her symptoms are improved. Continues with mild cough. DM: Reports overall feeling well. Medication side effects: No. Home sugar checks: once in awhile. Hypoglycemic spells: Yes. Not too often. Watching diet: Yes. Unexpected weight loss: No. Polyuria, polydipsia: Yes. Gets up about every 2 hours over night. Vision Changes: probably due for glasses, but refers not going to do at this age. Foot lesions or numbness or pain: No. HTN: Patient is compliant with meds No Monitors bp at home: No. Denies side effects: No. Chest pain: No. Dyspnea: No. Edema: No. Palpitations: No. Syncope: No. Headache: No. Dizziness: No. PAST MEDICAL HISTORY: PAST MEDICAL HISTORY Diagnosis Date Atherosclerotic heart disease of zuni coronary artery without angina pectoris Benign hypertension 03/30/2016 Cardiopathy nonishchemic Cataracts, bilateral Chronic congestive heart failure (HCC) 06/04/2017 Compression fracture 06/26/2015 [facility] - see scanned documents Depression 11/18/2013 Diverticulosis of colon (without mention of hemorrhage) Diverticulosis Esophageal reflux Essential hypertension, benign Exostosis hard palate, since childhood Hiatal hernia 06/26/2015 [facility] - see scanned documents 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 Hyperlipidemia LDL goal < 100 11/18/2013 Hypothyroidism 2011 Lumbago Lumbar degenerative disc disease 06/20/2012 Lumbar disc disease with radiculopathy 09/18/2012 Neurogenic bladder 01/28/2015 Nonischemic cardiomyopathy (HCC) Osteoarthrosis, unspecified whether generalized or localized, unspecified site Other bursitis of knee, right knee Other cataract Personal history of colonic polyps Colon polyps Presence of right artificial hip joint Presence of right artificial knee joint Pure hypercholesterolemia Squamous cell skin cancer, jawline 01/30/2015 BUSHRA (stress urinary incontinence, female) 08/18/2016 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 Bunion ESOPHAGOGASTRODUODENOSCOPY TRANSORAL DIAGNOSTIC 08/11/13 EGD ESOPHAGOGASTRODUODENOSCOPY TRANSORAL DIAGNOSTIC 11/28/13 EGD ESOPHAGOGASTRODUODENOSCOPY TRANSORAL DIAGNOSTIC 07/19/2015 EGD LAMINECTOMY W/O FFD 11/06 VERT SEG LUMBAR Laminectomy, lumbar, buldging disc, MAL LESION NECK,HAND,SCAL 1.1-2CM 02/27/15 SCC in situ left neck PAST SURGICAL HISTORY OF 2010 CATARACT REMOVAL BOTH EYES TOTAL HIP REPLACEMENT Right 12/19/2017 [facility] ALLERGIES Codeine, Diclofenac, Lisinopril, and Metformin MEDICATIONS Current Outpatient Medications Medication Sig potassium chloride (KLOR-CON 10) 10 mEq tablet Take 2 tablets by mouth daily with breakfast. albuterol HFA (VENTOLIN HFA) 90 mcg/actuation inhaler Inhale 2 Puffs as instructed every 4 hours asneeded for wheezing/shortness of breath. FLUoxetine (PROZAC) 10 mg capsule Take 1 capsule by mouth once daily. Take with 20 mg capsule for total daily dose of 30 mg. pramipexole (MIRAPEX) 0.125 mg tablet Take 1-2 tablets by mouth daily at bedtime. cyclobenzaprine (FLEXERIL) 10 mg tablet Take 1 tablet by mouth three times daily as needed. levothyroxine (SYNTHROID) 75 mcg tablet TAKE 1 TABLET BY MOUTH ONCE DAILY ON EMPTY STOMACH FOR THYROID simvastatin (ZOCOR) 40 mg tablet Take 1 tablet by mouth daily at bedtime. meloxicam (MOBIC) 15 mg tablet Take 1 tablet by mouth once daily. losartan (COZAAR) 50 mg tablet Take 1 tablet by mouth once daily. carvedilol (COREG) 12.5 mg tablet Take 1 tablet by mouth twice daily. FLUoxetine (PROZAC) 20 mg capsule Take 1 capsule by mouth once daily. melatonin 10 mg cap One tablet at bedtime. For insomnia insulin NPH-insulin regular injection (HumuLIN, NovoLIN 70/30) Inject 17 Units subcutaneously twicedaily with meals. dulaglutide (TRULICITY) 0.75 mg/0.5 mL pen injector Inject 0.75 mg subcutaneously one time a week. furosemide (LASIX) 20 mg tablet Take 20 mg by mouth as needed. loperamide HCl (LOPERAMIDE ORAL) Take 10 mg by mouth as needed. Lancets lancets Test blood sugar(s) 1 times daily. Dx: E11.22 Insulin: No budesonide-formoterol (SYMBICORT) 160-4.5 mcg/actuation inhaler Inhale 2 Puffs as instructed twice daily. blood sugar diagnostic (Criteo VERIO TEST STRIPS) test strip 1 Strip once daily. Test blood sugar(s) 1 daily. Dx: Type 2 DM - Controlled E11.9 Insulin: No ferrous sulfate (IRON ORAL) Take 325 mg by mouth once daily. aspirin, enteric coated (ECOTRIN LOW STRENGTH) 81 mg ORAL EC tablet Take 1 tablet by mouth once daily. Insulin Syringe-Needle U-100 (BD INSULIN SYRINGE) 0.3 mL 29 gauge x 1/2 syrg USE 1 SYRINGE FOR EACH INSULIN DOSE ONCE PER DAY omeprazole (PRILOSEC) 40 mg capsule Take 1 capsule by mouth once daily. No current facility-administered medications for this visit. FAMILY HISTORY Problem Relation Age of Onset None Mother Prostate Cancer Father Diabetes Sister Asthma Sister Colon Cancer Sister Diabetes Sister Cancer Brother throat cancer No Known Problems Daughter Heart Attack Daughter Social History Tobacco Use Smoking status: Never Smokeless tobacco: Never Vaping Use Vaping Use: Never used Substance Use Topics Alcohol use: No Drug use: No EXAM: BP 130/84 Pulse 74 Resp 18 Wt 92.5 kg (204 lb) SpO2 92% BMI 35.02 kg/m PHYSICAL EXAM: General Appearance: Well appearing, alert, in no acute distress, well-hydrated, well nourished.. Skin: Skin color, texture, turgor normal, no suspicious rashes or lesions. Head: Normocephalic, no masses, lesions, tenderness or abnormalities. Eyes: Anicteric sclera. Extraocular movements are intact. Lungs: Lungs clear to auscultation. No wheezing, rhonchi, rales.. Heart: RRR without murmur, gallop, or rubs. No ectopy. Extremities: No deformities, edema, skin discoloration, clubbing or cyanosis. Good capillary refill. Neurologic: Gait normal. ASSESSMENT/PLAN: 1. Uncontrolled type 2 diabetes mellitus with hyperglycemia (HCC) - ICD9: 250.02, ICD10: E11.65 (primary diagnosis) Controlled. - Continue current medications - BASIC METABOLIC PNL - HGB A1C 2. Mild intermittent asthma with acute exacerbation - ICD9: 493.92, ICD10: J45.21 Mild intermittent Asthma stable - Continue current meds - Avoidance of triggers recommended - ALBUTEROL SULFATE HFA 90 MCG/ACTUATION AEROSOL INHALER 3. Stage 3b chronic kidney disease (HCC) - ICD9: 585.3, ICD10: N18.32 Recheck labs. Kidney function was decreased w/ last labs, however, pt did not return for repeat labs. Pt did haveUTI at the time. - BASIC METABOLIC PNL 4. Essential (primary) hypertension - ICD9: 401.9, ICD10: I10 - fair control - Continue current medication(s) - Recommended regular aerobic exercise. - Recommend home blood pressure monitoring, to bring results in on next visit - Goal of BP <130/80 - BASIC METABOLIC PNL 5. Acute cough - ICD9: 786.2, ICD10: R05.1 Improved. Refill: - ALBUTEROL SULFATE HFA 90 MCG/ACTUATION AEROSOL INHALER Discussed treatment plan and patient voices understanding. Patient's questions answered appropriately. Medications and potential side effects were discussed and patient voices understanding. Return to the office as scheduled or as needed for worsening/no improvement. Becca Jacobs APRN.MGMT SPECIALIST This note was partially generated using [employer] recognition system. Note was reviewed for accuracy. There may be minor misspellings or grammar miscues with Dragon voice recognition. documented in this encounterFairfield Medical Center09-23-2022 Miscellaneous Notes* Telephone Encounter - Brynn Coronado LPN - 07/28/2022 2:13 PM EDT Patient has been identified by name and date of : Yes Patient phones for refill(s): Requested Prescriptions Pending Prescriptions Disp Refills potassium chloride (KLOR-CON 10) 10 mEq tablet 90 tablet 1 Sig: Take 2 tablets by mouth daily with breakfast. Date of last office visit in primary care: 06/16/22 Last 2 Encounter Wt Readings: Date: Wt: 07/18/2022 92.1 kg (203 lb) 06/16/2022 92.1 kg (203 lb) Previous labs/tests for medication: Not applicable Please advise. Thank you. Brynn Coronado LPN documented in this encounterFairfield Medical Center09-16-2022 Miscellaneous Notes* Telephone Encounter - Jessica Rodriguez LPN - 07/21/2022 10:23 AM EDT Last office visit: 06/16/22 Next appointment scheduled: 09/18/22 Patient phones requesting refills as follows: Requested Prescriptions Pending Prescriptions Disp Refills albuterol HFA (VENTOLIN HFA) 90 mcg/actuation inhaler 8 g 4 Sig: Inhale 2 Puffs as instructed every 4 hours as needed for wheezing/shortness of breath. Please review and advise. Jessica Rodriguez LPN documented in this encounterFairfield Medical Center09-13-2022 History of Present illness Narrative* Laura Florez APRN.ALEXANDRA - 07/18/2022 11:38 AM EDT Gabrielle Claire is a 87 year old No obstetric history on file. who presents today for pessary insertion/cleaning. She wears a size 2 incontinence dish with support pessary. She returns today with no complaints. She has not had problems with the pessary. She has not had vaginal discharge. She has not had vaginal bleeding. EXAM: pleasant, well developed, well nourished, in no apparent distress Pelvic: Bartholin's, urethra and Prestbury's glands were normal. The size 2 incontinence dish with support pessary was removed. Vaginal exam indicated no erythema, no ulcerations, and no vaginal discharge. The pessary was cleaned the pessary was inserted using Trimo-frias without difficulty ASSESSMENT/PLAN: 1. Encounter for pessary maintenance - ICD9: V53.99, ICD10: Z46.89 (primary diagnosis) - The pessary was inserted, patient tolerated the procedure well and the device is comfortable. 2. Cystocele, midline - ICD9: 618.01, ICD10: N81.11 Follow-up in 3-6 months for pessary maintenance. Laura Florez APRN.ALEXANDRA I spent a total of 20 minutes on the date of the service which included preparing to see the patient, [id number] patient care, completing clinical documentation, obtaining and/or reviewing separately obtained history, performing a medically appropriate examination, and counseling and educating the patient/family/caregiver. documented in this encounterFairfield Medical Center08-22-2022 Miscellaneous Notes* Telephone Encounter - Sheba Soto LPN - 06/26/2022 3:07 PM EDT Patient notified and verbalizes understanding. * Telephone Encounter - Jeannette Main - 06/23/2022 3:19 PM EDT Placed call to patient with no answer. Unable to leave message. Try again later. Jeannette Main * Telephone Encounter - Becca Jacobs APRN.CNP - 06/23/2022 2:55 PM EDT Can please let patient know that I received her lab results. Her A1C is much improved. Her thyroid levels are normal. Cholesterol levels were good. Her kidney function really went down. This could be d/t the infection. Please make sure you are getting enough water. Please return next week to repeat the labwork. The order is in, you just need to stop in. Please do this not fasting and well hydrated. Becca Jacobs APRN.CNP documented in this encounterFairfield Medical Center08-12-2022 Miscellaneous Notes* Telephone Encounter - Kimberly Garza LPN - 06/16/2022 1:27 PM EDT Electronic PA completed for cyclobenzaprine. This was approved 11/05/21 to 09/14/22 Pharmacy notified. documented in this encounterFairfield Medical Center08-12-2022 Instructions* Patient Instructions* Becca Jacobs APRN.CNP - 06/16/2022 11:59 AM EDT Increase the prozac to 30 mg daily (20 mg and 10 mg). Send me a message in a month and let me know how the increased prozac dose is working. 2. Get your labwork done. 3. Start the cephalexin twice daily X 7 days for a urinary tract infection. 4. Continue all the other same medications. 5. Schedule the ultrasound of the legs. 6. Recheck in 3 months. documented in this encounterFairfield Medical Center08-12-2022 History of Present illness Narrative* Becca Jacobs APRN.CNP - 06/16/2022 11:28 AM EDT This is a 87 year old female who presents today with: Patient presents with: Establish Care HISTORY OF PRESENT ILLNESS: Gabrielle Claire is a 87 year old female. Patient presents with: Establish Care Pt presents to establish. No problems/concerns. Presents today with daughter. DM: Reports overall feeling well. Medication side effects: No. Home sugar checks: no Hypoglycemic spells: No. Watching diet: No. Unexpected weight loss: No. Polyuria, polydipsia: polyuria. Worse at night. Vision Changes: No. Last eye visit -- last year. Foot lesions or numbness or pain: No. Refers feet area always cold. HTN: Patient is compliant with meds Yes Monitors bp at home: No. Denies side effects: No. Chest pain: No. Dyspnea: No. Edema: a little bit. . Palpitations: No. Syncope: No. Headache: No. Dizziness: No. Depression: Has her days where she gets down in the dumps. Feels like prozac may need to be increased a little bit. Asthma Rare use of rescue inhaler. HYPERLIPIDEMIA: Patient is taking medications: Yes. Patient is watching diet: Yes. Patient denies myalgias: Yes. Patient denies gi upset: Yes CAD: Refers that she follows with Dr. Duenas every 6 months. Asymptomatic -- no CP/SOB/palpitations. Advance Directive: Pt reports she has RODNEY - Leslie Iyer -- [phone]. Will bring in copy. PAST MEDICAL HISTORY: PAST MEDICAL HISTORY Diagnosis Date Atherosclerotic heart disease of zuni coronary artery without angina pectoris Benign hypertension 03/30/2016 Cardiopathy nonishchemic Cataracts, bilateral Chronic congestive heart failure (HCC) 06/04/2017 Compression fracture 06/26/2015 [facility] - see scanned documents Depression 11/18/2013 Diverticulosis of colon (without mention of hemorrhage) Diverticulosis Esophageal reflux Essential hypertension, benign Exostosis hard palate, since childhood Hiatal hernia 06/26/2015 [facility] - see scanned documents 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 Hyperlipidemia LDL goal < 100 11/18/2013 Hypothyroidism 2011 Lumbago Lumbar degenerative disc disease 06/20/2012 Lumbar disc disease with radiculopathy 09/18/2012 Neurogenic bladder 01/28/2015 Nonischemic cardiomyopathy (HCC) Osteoarthrosis, unspecified whether generalized or localized, unspecified site Other bursitis of knee, right knee Other cataract Personal history of colonic polyps Colon polyps Presence of right artificial hip joint Presence of right artificial knee joint Pure hypercholesterolemia Squamous cell skin cancer, jawline 01/30/2015 BUSHRA (stress urinary incontinence, female) 08/18/2016 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 Bunion ESOPHAGOGASTRODUODENOSCOPY TRANSORAL DIAGNOSTIC 08/11/13 EGD ESOPHAGOGASTRODUODENOSCOPY TRANSORAL DIAGNOSTIC 11/28/13 EGD ESOPHAGOGASTRODUODENOSCOPY TRANSORAL DIAGNOSTIC 07/19/2015 EGD LAMINECTOMY W/O FFD 11/06 VERT SEG LUMBAR Laminectomy, lumbar, buldging disc, MAL LESION NECK,HAND,SCAL 1.1-2CM 02/27/15 SCC in situ left neck PAST SURGICAL HISTORY OF 2010 CATARACT REMOVAL BOTH EYES TOTAL HIP REPLACEMENT Right 12/19/2017 [facility] ALLERGIES Codeine, Diclofenac, Lisinopril, and Metformin MEDICATIONS Current Outpatient Medications Medication Sig insulin NPH-insulin regular injection (HumuLIN, NovoLIN 70/30) Inject 17 Units subcutaneously twicedaily with meals. omeprazole (PRILOSEC) 40 mg capsule Take 1 capsule by mouth once daily. potassium chloride (KLOR-CON 10) 10 mEq tablet Take 2 tablets by mouth daily with breakfast. dulaglutide (TRULICITY) 0.75 mg/0.5 mL pen injector Inject 0.75 mg subcutaneously one time a week. furosemide (LASIX) 20 mg tablet Take 20 mg by mouth as needed. loperamide HCl (LOPERAMIDE ORAL) Take 10 mg by mouth as needed. Insulin Syringe-Needle U-100 (BD INSULIN SYRINGE) 0.3 mL 29 gauge x 1/2 syrg USE 1 SYRINGE FOR EACH INSULIN DOSE ONCE PER DAY Lancets lancets Test blood sugar(s) 1 times daily. Dx: E11.22 Insulin: No cyclobenzaprine (FLEXERIL) 10 mg tablet Take 1 tablet by mouth three times daily as needed. pramipexole (MIRAPEX) 0.125 mg tablet Take 1-2 tablets by mouth daily at bedtime. levothyroxine (SYNTHROID) 75 mcg tablet TAKE 1 TABLET BY MOUTH ONCE DAILY ON EMPTY STOMACH FOR THYROID simvastatin (ZOCOR) 40 mg tablet Take 1 tablet by mouth daily at bedtime. meloxicam (MOBIC) 15 mg tablet Take 1 tablet by mouth once daily. losartan (COZAAR) 50 mg tablet Take 1 tablet by mouth once daily. carvedilol (COREG) 12.5 mg tablet Take 1 tablet by mouth twice daily. FLUoxetine (PROZAC) 20 mg capsule Take 1 capsule by mouth once daily. melatonin 10 mg cap One tablet at bedtime. For insomnia budesonide-formoterol (SYMBICORT) 160-4.5 mcg/actuation inhaler Inhale 2 Puffs as instructed twice daily. albuterol HFA (VENTOLIN HFA) 90 mcg/actuation inhaler Inhale 2 Puffs as instructed every 4 hours asneeded for wheezing/shortness of breath. blood sugar diagnostic (Criteo VERIO TEST STRIPS) test strip 1 Strip once daily. Test blood sugar(s) 1 daily. Dx: Type 2 DM - Controlled E11.9 Insulin: No aspirin, enteric coated (ECOTRIN LOW STRENGTH) 81 mg ORAL EC tablet Take 1 tablet by mouth once daily. ferrous sulfate (IRON ORAL) Take 325 mg by mouth once daily. No current facility-administered medications for this visit. FAMILY HISTORY Problem Relation Age of Onset None Mother Prostate Cancer Father Diabetes Sister Asthma Sister Colon Cancer Sister Diabetes Sister Cancer Brother throat cancer No Known Problems Daughter Heart Attack Daughter Social History Tobacco Use Smoking status: Never Smokeless tobacco: Never Vaping Use Vaping Use: Never used Substance Use Topics Alcohol use: No Drug use: No EXAM: BP 110/78 Pulse 76 Resp 18 Wt 92.1 kg (203 lb) SpO2 94% BMI 34.84 kg/m PHYSICAL EXAM: General Appearance: Well appearing, alert, in no acute distress, well-hydrated, well nourished.. Skin: Skin color, texture, turgor normal, no suspicious rashes or lesions. Head: Normocephalic, no masses, lesions, tenderness or abnormalities. Eyes: Anicteric sclera. Extraocular movements are intact. . Neck: Supple, no adenopathy; thyroid symmetric, normal size, no bruits. Lungs: Lungs clear to auscultation. No wheezing, rhonchi, rales.. Heart: RRR without murmur, gallop, or rubs. No ectopy. Abdomen: Abdomen soft, non-tender. Bowel sounds normal. Extremities: No deformities, edema, clubbing. Feet cold w/ bluish/purple discoloration. + pp bilaterally. Neurologic: Gait normal w/ walker. Feet:Shoes and socks removed, No deformities, ulcers, calluses, normal distal pulses, and sensitiveto 10 gm monofilament ASSESSMENT/PLAN: 1. Diabetes mellitus due to underlying condition with hyperglycemia, with long- term current use of insulin (HCC) - ICD9: 249.80, 790.29, V58.67, ICD10: E08.65, Z79.4 (primary diagnosis) Due for labs. Previous followed w/ clinical pharmacist. - PVR ANK PRESS [facility] 2. Urinary frequency - ICD9: 788.41, ICD10: R35.0 - UA DIP, URINE (POC) 3. Uncontrolled type 2 diabetes mellitus with hyperglycemia (HCC) - ICD9: 250.02, ICD10: E11.65 Follow-up pending lab results. - HGB A1C - COMP METABOLIC PANEL - ALBUMIN/CREAT RATIO RND UR - FLUOXETINE 10 MG CAPSULE - ALBUMIN/CREAT RATIO RND UR 4. Hyperlipidemia with target LDL less than 100 - ICD9: 272.4, ICD10: E78.5 - to be determined upon return of lab results - Continue current medication. - LIPID PANEL, NONFASTING 5. Hypothyroidism due to acquired atrophy of thyroid - ICD9: 244.8, 246.8, ICD10: E03.4 - TSH BLD - T4 FREE/FREE THYROX 6. Restless leg - ICD9: 333.94, ICD10: G25.81 Stable on medication. - PRAMIPEXOLE 0.125 MG TABLET 7. Essential (primary) hypertension - ICD9: 401.9, ICD10: I10 - good control - Continue current medication(s) - Recommended regular aerobic exercise. - Recommend home blood pressure monitoring, to bring results in on next visit - Goal of BP <130/80 - LOSARTAN 50 MG TABLET - CARVEDILOL 12.5 MG TABLET 8. Situational depression - ICD9: 309.0, ICD10: F43.21 Feels that she could benefit from an increase in the Prozac dosage. We will go ahead and increase to 30 mg daily. She will send provider a message in 1 month with an update on the effectiveness. - FLUOXETINE 20 MG CAPSULE 9. Sleeping difficulty - ICD9: 780.50, ICD10: G47.9 Uses melatonin as needed. - MELATONIN 10 MG CAPSULE 10. Acute cystitis without hematuria - ICD9: 595.0, ICD10: N30.00 Urine dip is positive for leuks and nitrates. We will go ahead and start cephalexin. - CEPHALEXIN 500 MG CAPSULE - URINE CULTURE 11. Cold feet - ICD9: 782.9, ICD10: R20.9 Chronic in nature. Last GILBERT in 2019. Will get updated. - PVR ANK PRESS [facility] 12. Advanced directives, counseling/discussion - ICD9: V65.49, ICD10: Z71.89 - ADVANCE CARE PLAN DISCUSSION Pt reports she has DPOA - Leslie Iyer -- [phone]. Discussed treatment plan and patient voices understanding. Patient's questions answered appropriately. Medications and potential side effects were discussed and patient voices understanding. Return to the office as scheduled or as needed for worsening/no improvement. Plan to recheck in the office in 3 months. Becca Jacobs APRN.ALEXANDRA This note was partially generated using [employer] voice recognition system. Note was reviewed for accuracy. There may be minor misspellings or grammar miscues with [employer] voice recognition. documented in this encounterFair[facility]06-[facility]22 Miscellaneous Notes* Telephone Encounter - Alysia Simpson Taylor STONE - 04/10/2022 2:47 PM EDT Patient has been identified by name and date of : Yes Patient phones for refill(s): Pending Prescriptions Disp Refills OMEPRAZOLE 40 MG CAPSULE,DELAYED RELEASE 90 capsule 1 Sig: Take 1 capsule by mouth once daily. MARTIN: No POTASSIUM CHLORIDE ER 10 MEQ TABLET,EXTENDED RELEASE 90 tablet 1 Sig: Take 2 tablets by mouth daily with breakfast. MARTIN: No Date of last office visit in primary care: 12/13/2021 Establish: 06/02/2022 Last 2 Encounter Wt Readings: Date: Wt: 02/01/2022 93.9 kg (207 lb) 12/13/2021 95.7 kg (211 lb) Previous labs/tests for medication: Potassium: No components found for: POT Please advise. Thank you. Alysia Vazquez LPN documented in this encounterFairfield [facility] Center04-03-2022 Evaluation note* Diagnosis Type 2 diabetes mellitus with stage 3a chronic kidney disease, with long-term current use of insulin (HCC) documented in this encounter [facility] Miscellaneous Notes* Telephone Encounter - Aliya Salazar MD - 02/05/2022 2:12 AM EDT Okayed * Telephone Encounter - Brynn Coronado LPN - 02/04/2022 10:23 AM EDT Patient has been identified by name and date of : Yes Patient phones for refill(s): Pending Prescriptions Disp Refills TRULICITY 0.75 MG/0.5 ML SUBCUTANEOUS PEN INJECTOR 2 mL 11 Sig: Inject 0.75 mg subcutaneously one time a week. MARTIN: No Date of last office visit in primary care: 12/13/21 Last 2 Encounter Wt Readings: Date: Wt: 02/01/2022 93.9 kg (207 lb) 12/13/2021 95.7 kg (211 lb) Previous labs/tests for medication: Not applicable Please advise. Thank you. Brynn Coronado LPN documented in this encounterFairfield [facility] Center03-30-2022 History of Present illness Narrative* Laura Florez APRN.ALEXANDRA - 02/01/2022 8:04 AM EDT Gabrielle Claire is a 86 year old No obstetric history on file. who presents today for pessary insertion/cleaning. She wears a size 2 incontinence dish with support pessary. She returns today with no complaints. She has not had problems with the pessary. She has not had vaginal discharge. She has not had vaginal bleeding. EXAM: pleasant, well developed, well nourished, in no apparent distress Pelvic: Bartholin's, urethra and [place]'s glands were normal. The pessary was removed. Vaginal exam indicated no erythema, no ulcerations and no vaginal discharge. The pessary was cleaned and replaced using Trimo-sa. ASSESSMENT/PLAN: 1. Encounter for pessary maintenance - ICD9: V53.99, ICD10: Z46.89 (primary diagnosis) - The pessary was inserted, patient tolerated the procedure well and the device is comfortable. 2. Cystocele, midline - ICD9: 618.01, ICD10: N81.11 Follow-up 3-6 months. Laura Florez APRN.CNP I spent a total of 20 minutes on the date of the service which included preparing to see the patient, [id number] patient care, completing clinical documentation, obtaining and/or reviewing separately obtained history, performing a medically appropriate examination, counseling and educating the pat ient/family/caregiver and ordering medications, tests, or procedures. documented in this encounterFairfield Medical Center03-01-2022 History of Present illness Narrative* Nelida Morgan, [facility] - 01/03/2022 2:00 PM EST Primary Care Pharmacy Visit REASON FOR CONSULT: DM GOALS: A1c < 8% CONSULTING PROVIDER: Benja Desai APRN.CNP, DNP Date of Consult: 09/26/21 Gabrielle Claire is a 86 year old female presenting for follow up visit by telephone. Patient consents to pharmacy collaborative practice agreement. Last seen by Nisha Dawson APRN.CNS on 12/13/21. At last PharmD visit on 11/21, dulaglutide was initiated. At last PharmD visit on 12/06,no medication changes made. At last [facility] appt on 12/13, patient was recommended to recheck A1c in 3 months and continue followup with pharmacy for DM management. INTERIM HISTORY: Spoke with patient alone for this visit, due to caregiver (daughter Leslie) unavailable at time of call Patient states she does not have any of her blood sugar readings to review as she left them at her daughter's house. Is not able to recall blood sugar readings or ranges of blood sugars. States they have been prettygood States she has not had any issues with Trulicity. No nausea or feeling sick to her stomach Current DM Medications: Insulin NPH/regular 70/30 - Injecting 17 units twice daily dulaglutide (Trulicity) 0.75 mg weekly Past DM medications: Metformin - unable to tolerate d/t GI symptoms Pioglitazone Trulicity - stopped due to cost Glipizide Glimepiride Avandia Preventative Medications: On PAULETTE/ARB: Yes On Statin: Yes GLYCEMIC CONTROL: Glucometer present at visit: n/a, phone visit SMBG s: No SMBG readings to review Hypoglycemia: denies ROS: Patient denies CP, SOB, RICE, blurred vision, dizziness or lightheadedness Patient denies nausea, vomiting, diarrhea, abdominal pain Patient denies symptoms of hypoglycemia (sweating, anxiety, palpitations, hunger, and tremor) Patient denies symptoms of hyperglycemia (polyuria, polydipsia, polyphagia) Patient denies potential medication adverse effects DIET/EXERCISE/SOCIAL Hx: (unchanged since 10/05 visit) Breakfast (10am): rika bread with turkish cheese and hot peppers, half cup of milk and banana Lunch/dinner (3pm): chicken nuggets and tater tots, apple sauce and sometimes vegetables Snacks: popcorn before bedtime Beverages: water with crystal light, apple and peanut butter Exercise: limited, uses a walker MEDICATIONS: Pill bottles are not present. Adherence: denies missed doses. 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) Essential (Primary) Hypertension 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 Neuropathic Pain Mitral Valve Prolapse Non-St Elevation (Nstemi) Myocardial Infarction (Hcc) Paroxysmal Ventricular Tachycardia (Hcc) Presence of Unspecified Artificial Knee Joint Presence of Right Artificial Hip Joint Ddd (Degenerative Disc Disease), Lumbar Mild Intermittent Asthma With Acute Exacerbation Hypokalemia Peripheral Venous Insufficiency Allergic Conjunctivitis of Both Eyes Muscle Twitching PAST MEDICAL HISTORY Diagnosis Date Atherosclerotic heart disease of [place] coronary artery without angina pectoris Benign hypertension 03/30/2016 Cardiopathy nonishchemic Cataracts, bilateral Chronic congestive heart failure (HCC) 06/04/2017 Compression fracture 06/26/2015 WC - see scanned documents Depression 11/18/2013 Diverticulosis of colon (without mention of hemorrhage) Diverticulosis Esophageal reflux Essential hypertension, benign Exostosis hard palate, since childhood Hiatal hernia 06/26/2015 WC - see scanned documents 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 Hyperlipidemia LDL goal < 100 11/18/2013 Hypothyroidism 2010 Lumbago Lumbar degenerative disc disease 06/20/2012 Lumbar disc disease with radiculopathy 09/18/2012 Neurogenic bladder 01/28/2015 Nonischemic cardiomyopathy (HCC) Osteoarthrosis, unspecified whether generalized or localized, unspecified site Other bursitis of knee, right knee Other cataract Personal history of colonic polyps Colon polyps Presence of right artificial hip joint Presence of right artificial knee joint Pure hypercholesterolemia Squamous cell skin cancer, jawline 01/30/2015 BUSHRA (stress urinary incontinence, female) 08/18/2016 Type 2 diabetes mellitus with stage 3 chronic kidney disease (HCC) 12/27/2015 Unilateral primary osteoarthritis, left knee ALLERGIES Allergen Reactions Codeine Other: See Comments constipation Diclofenac Diarrhea Long, long time time ago. Lisinopril Cough Metformin Diarrhea Current Outpatient Medications Medication Sig furosemide (LASIX) 20 mg tablet Take 20 mg by mouth as needed. loperamide HCl (LOPERAMIDE ORAL) Take 10 mg by mouth as needed. dulaglutide (TRULICITY) 0.75 mg/0.5 mL pen injector Inject 0.75 mg subcutaneously one time a week. Insulin Syringe-Needle U-100 (BD INSULIN SYRINGE) 0.3 mL 29 gauge x 1/2 syrg USE 1 SYRINGE FOR EACH INSULIN DOSE ONCE PER DAY Lancets lancets Test blood sugar(s) 1 times daily. Dx: E11.22 Insulin: No cyclobenzaprine (FLEXERIL) 10 mg tablet Take 1 tablet by mouth three times daily as needed. insulin NPH-insulin regular injection (HumuLIN, NovoLIN 70/30) Inject 17 Units subcutaneously twicedaily with meals. pramipexole (MIRAPEX) 0.125 mg tablet Take 1-2 tablets by mouth daily at bedtime. levothyroxine (SYNTHROID) 75 mcg tablet TAKE 1 TABLET BY MOUTH ONCE DAILY ON EMPTY STOMACH FOR THYROID simvastatin (ZOCOR) 40 mg tablet Take 1 tablet by mouth daily at bedtime. meloxicam (MOBIC) 15 mg tablet Take 1 tablet by mouth once daily. omeprazole (PRILOSEC) 40 mg capsule Take 1 capsule by mouth once daily. losartan (COZAAR) 50 mg tablet Take 1 tablet by mouth once daily. carvedilol (COREG) 12.5 mg tablet Take 1 tablet by mouth twice daily. FLUoxetine (PROZAC) 20 mg capsule Take 1 capsule by mouth once daily. potassium chloride (KLOR-CON 10) 10 mEq tablet Take 2 tablets by mouth daily with breakfast. melatonin 10 mg cap One tablet at bedtime. For insomnia budesonide-formoterol (SYMBICORT) 160-4.5 mcg/actuation inhaler Inhale 2 Puffs as instructed twice daily. albuterol HFA (VENTOLIN HFA) 90 mcg/actuation inhaler Inhale 2 Puffs as instructed every 4 hours asneeded for wheezing/shortness of breath. blood sugar diagnostic ([employer] VERIO TEST STRIPS) test strip 1 Strip once daily. Test blood sugar(s) 1 daily. Dx: Type 2 DM - Controlled E11.9 Insulin: No ferrous sulfate (IRON ORAL) Take 325 mg by mouth once daily. aspirin, enteric coated (ECOTRIN LOW STRENGTH) 81 mg ORAL EC tablet Take 1 tablet by mouth once daily. No current facility-administered medications for this visit. EXAM: Last 3 Encounter BP Readings: Date: BP: 12/13/2021 126/80 10/06/2021 126/80 08/04/2021 104/68 Wt: 95.7 kg (211 lb) BMI: 36.22 kg/(m^2) LABS: Lab Results Component Value Date HBA1C 9.3 10/06/2021 HBA1C 9.7 01/11/2021 HBA1C 8.6 07/02/2020 CMP: Glucose 205 10/06/2021 BUN 23 10/06/2021 Creatinine 1.09 10/06/2021 Sodium 142 10/06/2021 Potassium 4.8 10/06/2021 Chloride 102 10/06/2021 CO2 30 10/06/2021 Protein, Total 6.7 10/06/2021 Albumin 4.3 10/06/2021 Calcium 9.5 10/06/2021 Alkaline Phosphatase 107 10/06/2021 Bilirubin, Total 0.6 10/06/2021 AST 22 10/06/2021 ALT 15 10/06/2021 EGFR: 48 mL/min/1.73m2 No results found for: B12 Lab Results Component Value Date CHOL 133 01/11/2021 LDL 63 01/11/2021 HDL 36 01/11/2021 TG 169 01/11/2021 The ASCVD Risk score (Lulu ELMORE Jr., et al., 2013) failed to calculate for the following reasons: The 2013 ASCVD risk score is only valid for ages 40 to 79 Albumin/Creat Ratio (mg/g) Date Value 01/11/2021 63 (H) PHARMACOTHERAPY ASSESSMENT/PLAN: 1. Type 2 diabetes mellitus with stage 3a chronic kidney disease, with long-term current use of insulin ([facility]) - ICD9: 250.40, 585.3, V58.67, ICD10: E11.22, N18.31, Z79.4 A1c goal < 8%; not at goal (last A1c 9.3%); No SMBG readings to review. Pt is unable to recall blood sugar readings, therefore today will continue current regimen and advised pt to complete A1c lab work as ordered. If A1c result is elevated at upcoming labs, can consider increasing Trulicity dose. CONTINUE Insulin NPH/regular 70/30 - Injecting 17 units twice daily, dulaglutide (Trulicity) 0.75 mg weekly HbA1c: due 01/04/22 Follow up: Patient is scheduled to see PCP on 06/02/22. Patient verbalized understanding of instructions. Nelida Morgan PharmD, BCACP Primary Care Clinical Pharmacist [facility] The majority of the pharmacy visit (> 50%) was spent counseling and/or coordinating care for thepatient. [Telephonic] time was 19 minutes. documented in this encounterFairfield Medical Center10-04-2018 History of Past illness Narrative* Problem Noted Date Resolved Date Acute respiratory failure 08/08/20182017 Exacerbation of asthma 08/08/2018 8 Respiratory failure 08/08/2018 08/08/2018 Hypoxemia 08/16/2017 08/08/2018 Acidosis 08/01/2017 08/08/2018 Acute kidney failure, unspecified 08/01/2017 08/08/2018 Acute posthemorrhagic anemia 08/01/201702/2018 Chronic obstructive pulmonar y disease with acute exacerbation 08/01/2017 11/11/2018 Ventricular tachycardia 08/01/2017 11/11/19 19 Falls 07/03/2016 07/03/2017 Weakness 07/03/2016 07/03/2017 Difficulty walking 07/03/2016 07/03/2017 Squamous cell skin cancer, jawline 01/30/2015 08/08/2018 Complete rupture of rotator cuff 08/05/2013 08/08/2018 Subacromial bursitis 08/05/2013 08/08/2018 DM w/o complication type II, uncontrolled 200506/12/2013 documented as of this encounter (statuses as of 01/25/2022) [facility] of [facility] illness Narrative* Problem Noted Date Resolved Date Acute respiratory failure 08/08/20182017 Exacerbation of asthma 08/08/2018 8 Respiratory failure 08/08/2018 08/08/2018 Hypoxemia 08/16/2017 08/08/2018 Acidosis 08/01/2017 08/08/2018 Acute kidney failure, unspecified 08/01/2017 08/08/2018 Acute posthemorrhagic anemia 08/01/201702/2018 Chronic obstructive pulmonar y disease with acute exacerbation 08/01/2017 11/11/2018 Ventricular tachycardia 08/01/2017 11/11/19 19 Falls 07/03/2016 07/03/2017 Weakness 07/03/2016 07/03/2017 Difficulty walking 07/03/2016 07/03/2017 Squamous cell skin cancer, jawline 01/30/2015 08/08/2018 Complete rupture of rotator cuff 08/05/2013 08/08/2018 Subacromial bursitis 08/05/2013 08/08/2018 DM w/o complication type II, uncontrolled 200506/12/2013 documented as of this encounter (statuses as of 02/01/2022) [facility] Narrative* Problem Noted Date Resolved Date Acute respiratory failure 08/08/20182017 Exacerbation of asthma 08/08/2018 8 Respiratory failure 08/08/2018 08/08/2018 Hypoxemia 08/16/2017 08/08/2018 Acidosis 08/01/2017 08/08/2018 Acute kidney failure, unspecified 08/01/2017 08/08/2018 Acute posthemorrhagic anemia 08/01/201702/2018 Chronic obstructive pulmonar y disease with acute exacerbation 08/01/2017 11/11/2018 Ventricular tachycardia 08/01/2017 11/11/19 19 Falls 07/03/2016 07/03/2017 Weakness 07/03/2016 07/03/2017 Difficulty walking 07/03/2016 07/03/2017 Squamous cell skin cancer, jawline 01/30/2015 08/08/2018 Complete rupture of rotator cuff 08/05/2013 08/08/2018 Subacromial bursitis 08/05/2013 08/08/2018 DM w/o complication type II, uncontrolled 200506/12/2013 documented as of this encounter (statuses as of 02/05/2022) [facility] Narrative* Problem Noted Date Resolved Date Acute respiratory failure 08/08/20182017 Exacerbation of asthma 08/08/2018 8 Respiratory failure 08/08/2018 08/08/2018 Hypoxemia 08/16/2017 08/08/2018 Acidosis 08/01/2017 08/08/2018 Acute kidney failure, unspecified 08/01/2017 08/08/2018 Acute posthemorrhagic anemia 08/01/201702/2018 Chronic obstructive pulmonar y disease with acute exacerbation 08/01/2017 11/11/2018 Ventricular tachycardia 08/01/2017 11/11/19 19 Falls 07/03/2016 07/03/2017 Weakness 07/03/2016 07/03/2017 Difficulty walking 07/03/2016 07/03/2017 Squamous cell skin cancer, jawline 01/30/2015 08/08/2018 Complete rupture of rotator cuff 08/05/2013 08/08/2018 Subacromial bursitis 08/05/2013 08/08/2018 DM w/o complication type II, uncontrolled 200506/12/2013 documented as of this encounter (statuses as of 04/10/2022) [facility] Narrative* Problem Noted Date Resolved Date Acute respiratory failure 08/08/20182017 Exacerbation of asthma 08/08/2018 8 Respiratory failure 08/08/2018 08/08/2018 Hypoxemia 08/16/2017 08/08/2018 Acidosis 08/01/2017 08/08/2018 Acute kidney failure, unspecified 08/01/2017 08/08/2018 Acute posthemorrhagic anemia 08/01/201702/2018 Chronic obstructive pulmonar y disease with acute exacerbation 08/01/2017 11/11/2018 Ventricular tachycardia 08/01/2017 11/11/19 19 Falls 07/03/2016 07/03/2017 Weakness 07/03/2016 07/03/2017 Difficulty walking 07/03/2016 07/03/2017 Squamous cell skin cancer, jawline 01/30/2015 08/08/2018 Complete rupture of rotator cuff 08/05/2013 08/08/2018 Subacromial bursitis 08/05/2013 08/08/2018 DM w/o complication type II, uncontrolled 200506/12/2013 documented as of this encounter (statuses as of 06/16/2022) [facility] Narrative* Problem Noted Date Resolved Date Acute respiratory failure 08/08/20182017 Exacerbation of asthma 08/08/2018 8 Respiratory failure 08/08/2018 08/08/2018 Hypoxemia 08/16/2017 08/08/2018 Acidosis 08/01/2017 08/08/2018 Acute kidney failure, unspecified 08/01/2017 08/08/2018 Acute posthemorrhagic anemia 08/01/201702/2018 Chronic obstructive pulmonar y disease with acute exacerbation 08/01/2017 11/11/2018 Ventricular tachycardia 08/01/2017 11/11/19 19 Falls 07/03/2016 07/03/2017 Weakness 07/03/2016 07/03/2017 Difficulty walking 07/03/2016 07/03/2017 Squamous cell skin cancer, jawline 01/30/2015 08/08/2018 Complete rupture of rotator cuff 08/05/2013 08/08/2018 Subacromial bursitis 08/05/2013 08/08/2018 DM w/o complication type II, uncontrolled 200506/12/2013 documented as of this encounter (statuses as of 06/16/2022) [facility] Narr[facility]* Problem Noted Date Resolved Date Acute respiratory failure 08/08/20182017 Exacerbation of asthma 08/08/2018 8 Respiratory failure 08/08/2018 08/08/2018 Hypoxemia 08/16/2017 08/08/2018 Acidosis 08/01/2017 08/08/2018 Acute kidney failure, unspecified 08/01/2017 08/08/2018 Acute posthemorrhagic anemia 08/01/201702/2018 Chronic obstructive pulmonar y disease with acute exacerbation 08/01/2017 11/11/2018 Ventricular tachycardia 08/01/2017 11/11/19 19 Falls 07/03/2016 07/03/2017 Weakness 07/03/2016 07/03/2017 Difficulty walking 07/03/2016 07/03/2017 Squamous cell skin cancer, jawline 01/30/2015 08/08/2018 Complete rupture of rotator cuff 08/05/2013 08/08/2018 Subacromial bursitis 08/05/2013 08/08/2018 DM w/o complication type II, uncontrolled 200506/12/2013 documented as of this encounter (statuses as of 06/26/2022) [facility] Narrative* Problem Noted Date Resolved Date Acute respiratory failure 08/08/20182017 Exacerbation of asthma 08/08/2018 8 Respiratory failure 08/08/2018 08/08/2018 Hypoxemia 08/16/2017 08/08/2018 Acidosis 08/01/2017 08/08/2018 Acute kidney failure, unspecified 08/01/2017 08/08/2018 Acute posthemorrhagic anemia 08/01/201702/2018 Chronic obstructive pulmonar y disease with acute exacerbation 08/01/2017 11/11/2018 Ventricular tachycardia 08/01/2017 11/11/19 19 Falls 07/03/2016 07/03/2017 Weakness 07/03/2016 07/03/2017 Difficulty walking 07/03/2016 07/03/2017 Squamous cell skin cancer, jawline 01/30/2015 08/08/2018 Complete rupture of rotator cuff 08/05/2013 08/08/2018 Subacromial bursitis 08/05/2013 08/08/2018 DM w/o complication type II, uncontrolled 200506/12/2013 documented as of this encounter (statuses as of 07/18/2022) [facility] Narr[facility]* Problem Noted Date Resolved Date Acute respiratory failure 08/08/20182017 Exacerbation of asthma 08/08/2018 8 Respiratory failure 08/08/2018 08/08/2018 Hypoxemia 08/16/2017 08/08/2018 Acidosis 08/01/2017 08/08/2018 Acute kidney failure, unspecified 08/01/2017 08/08/2018 Acute posthemorrhagic anemia 08/01/201702/2018 Chronic obstructive pulmonar y disease with acute exacerbation 08/01/2017 11/11/2018 Ventricular tachycardia 08/01/2017 11/11/19 19 Falls 07/03/2016 07/03/2017 Weakness 07/03/2016 07/03/2017 Difficulty walking 07/03/2016 07/03/2017 Squamous cell skin cancer, jawline 01/30/2015 08/08/2018 Complete rupture of rotator cuff 08/05/2013 08/08/2018 Subacromial bursitis 08/05/2013 08/08/2018 DM w/o complication type II, uncontrolled 200506/12/2013 documented as of this encounter (statuses as of 07/21/2022) [facility] of [facility]arr[facility]* Problem Noted Date Resolved Date Acute respiratory failure 08/08/20182017 Exacerbation of asthma 08/08/2018 8 Respiratory failure 08/08/2018 08/08/2018 Hypoxemia 08/16/2017 08/08/2018 Acidosis 08/01/2017 08/08/2018 Acute kidney failure, unspecified 08/01/2017 08/08/2018 Acute posthemorrhagic anemia 08/01/201702/2018 Chronic obstructive pulmonar y disease with acute exacerbation 08/01/2017 11/11/2018 Ventricular tachycardia 08/01/2017 11/11/19 19 Falls 07/03/2016 07/03/2017 Weakness 07/03/2016 07/03/2017 Difficulty walking 07/03/2016 07/03/2017 Squamous cell skin cancer, jawline 01/30/2015 08/08/2018 Complete rupture of rotator cuff 08/05/2013 08/08/2018 Subacromial bursitis 08/05/2013 08/08/2018 DM w/o complication type II, uncontrolled 200506/12/2013 documented as of this encounter (statuses as of 07/28/2022) [facility] History of Past illness Narrative* Problem Noted Date Resolved Date Acute respiratory failure 08/08/20182017 Exacerbation of asthma 08/08/2018 8 Respiratory failure 08/08/2018 08/08/2018 Hypoxemia 08/16/2017 08/08/2018 Acidosis 08/01/2017 08/08/2018 Acute kidney failure, unspecified 08/01/2017 08/08/2018 Acute posthemorrhagic anemia 08/01/201702/2018 Chronic obstructive pulmonar y disease with acute exacerbation 08/01/2017 11/11/2018 Ventricular tachycardia 08/01/2017 11/11/19 19 Falls 07/03/2016 07/03/2017 Weakness 07/03/2016 07/03/2017 Difficulty walking 07/03/2016 07/03/2017 Squamous cell skin cancer, jawline 01/30/2015 08/08/2018 Complete rupture of rotator cuff 08/05/2013 08/08/2018 Subacromial bursitis 08/05/2013 08/08/2018 DM w/o complication type II, uncontrolled 200506/12/2013 documented as of this encounter (statuses as of 09/19/2022) [facility] History of Past illness Narrative* Problem Noted Date Resolved Date Acute respiratory failure 08/08/20182017 Exacerbation of asthma 08/08/2018 8 Respiratory failure 08/08/2018 08/08/2018 Hypoxemia 08/16/2017 08/08/2018 Acidosis 08/01/2017 08/08/2018 Acute kidney failure, unspecified 08/01/2017 08/08/2018 Acute posthemorrhagic anemia 08/01/201702/2018 Chronic obstructive pulmonar y disease with acute exacerbation 08/01/2017 11/11/2018 Ventricular tachycardia 08/01/2017 11/11/19 19 Falls 07/03/2016 07/03/2017 Weakness 07/03/2016 07/03/2017 Difficulty walking 07/03/2016 07/03/2017 Squamous cell skin cancer, jawline 01/30/2015 08/08/2018 Complete rupture of rotator cuff 08/05/2013 08/08/2018 Subacromial bursitis 08/05/2013 08/08/2018 DM w/o complication type II, uncontrolled 200506/12/2013 documented as of this encounter (statuses as of 09/20/2022) [facility] History of Past illness Narrative* Problem Noted Date Resolved Date Acute respiratory failure 08/08/20182017 Exacerbation of asthma 08/08/2018 8 Respiratory failure 08/08/2018 08/08/2018 Hypoxemia 08/16/2017 08/08/2018 Acidosis 08/01/2017 08/08/2018 Acute kidney failure, unspecified 08/01/2017 08/08/2018 Acute posthemorrhagic anemia 08/01/201702/2018 Chronic obstructive pulmonar y disease with acute exacerbation 08/01/2017 11/11/2018 Ventricular tachycardia 08/01/2017 11/11/19 19 Falls 07/03/2016 07/03/2017 Weakness 07/03/2016 07/03/2017 Difficulty walking 07/03/2016 07/03/2017 Squamous cell skin cancer, jawline 01/30/2015 08/08/2018 Complete rupture of rotator cuff 08/05/2013 08/08/2018 Subacromial bursitis 08/05/2013 08/08/2018 DM w/o complication type II, uncontrolled 200506/12/2013 documented as of this encounter (statuses as of 10/18/2022) [facility] History of Past illness Narrative* Problem Noted Date Resolved Date Acute respiratory failure 08/08/20182017 Exacerbation of asthma 08/08/2018 8 Respiratory failure 08/08/2018 08/08/2018 Hypoxemia 08/16/2017 08/08/2018 Acidosis 08/01/2017 08/08/2018 Acute kidney failure, unspecified 08/01/2017 08/08/2018 Acute posthemorrhagic anemia 08/01/201702/2018 Chronic obstructive pulmonar y disease with acute exacerbation 08/01/2017 11/11/2018 Ventricular tachycardia 08/01/2017 11/11/19 19 Falls 07/03/2016 07/03/2017 Weakness 07/03/2016 07/03/2017 Difficulty walking 07/03/2016 07/03/2017 Squamous cell skin cancer, jawline 01/30/2015 08/08/2018 Complete rupture of rotator cuff 08/05/2013 08/08/2018 Subacromial bursitis 08/05/2013 08/08/2018 DM w/o complication type II, uncontrolled 200506/12/2013 documented as of this encounter (statuses as of 10/18/2022) [facility] of Past illness Narrative* Problem Noted Date Resolved Date Acute respiratory failure 08/08/20182017 Exacerbation of asthma 08/08/2018 8 Respiratory failure 08/08/2018 08/08/2018 Hypoxemia 08/16/2017 08/08/2018 Acidosis 08/01/2017 08/08/2018 Acute kidney failure, unspecified 08/01/2017 08/08/2018 Acute posthemorrhagic anemia 08/01/201702/2018 Chronic obstructive pulmonar y disease with acute exacerbation 08/01/2017 11/11/2018 Ventricular tachycardia 08/01/2017 11/11/19 19 Falls 07/03/2016 07/03/2017 Weakness 07/03/2016 07/03/2017 Difficulty walking 07/03/2016 07/03/2017 Squamous cell skin cancer, jawline 01/30/2015 08/08/2018 Complete rupture of rotator cuff 08/05/2013 08/08/2018 Subacromial bursitis 08/05/2013 08/08/2018 DM w/o complication type II, uncontrolled 200506/12/2013 documented as of this encounter (statuses as of 10/18/2022) [facility] History of Past illness Narrative* Problem Noted Date Resolved Date Acute respiratory failure 08/08/20182017 Exacerbation of asthma 08/08/2018 8 Respiratory failure 08/08/2018 08/08/2018 Hypoxemia 08/16/2017 08/08/2018 Acidosis 08/01/2017 08/08/2018 Acute kidney failure, unspecified 08/01/2017 08/08/2018 Acute posthemorrhagic anemia 08/01/201702/2018 Chronic obstructive pulmonar y disease with acute exacerbation 08/01/2017 11/11/2018 Ventricular tachycardia 08/01/2017 11/11/19 19 Falls 07/03/2016 07/03/2017 Weakness 07/03/2016 07/03/2017 Difficulty walking 07/03/2016 07/03/2017 Squamous cell skin cancer, jawline 01/30/2015 08/08/2018 Complete rupture of rotator cuff 08/05/2013 08/08/2018 Subacromial bursitis 08/05/2013 08/08/2018 DM w/o complication type II, uncontrolled 200506/12/2013 documented as of this encounter (statuses as of 10/18/2022) [facility] History of Past illness Narrative* Problem Noted Date Resolved Date Acute respiratory failure 08/08/20182017 Exacerbation of asthma 08/08/2018 8 Respiratory failure 08/08/2018 08/08/2018 Hypoxemia 08/16/2017 08/08/2018 Acidosis 08/01/2017 08/08/2018 Acute kidney failure, unspecified 08/01/2017 08/08/2018 Acute posthemorrhagic anemia 08/01/201702/2018 Chronic obstructive pulmonar y disease with acute exacerbation 08/01/2017 11/11/2018 Ventricular tachycardia 08/01/2017 11/11/19 19 Falls 07/03/2016 07/03/2017 Weakness 07/03/2016 07/03/2017 Difficulty walking 07/03/2016 07/03/2017 Squamous cell skin cancer, jawline 01/30/2015 08/08/2018 Complete rupture of rotator cuff 08/05/2013 08/08/2018 Subacromial bursitis 08/05/2013 08/08/2018 DM w/o complication type II, uncontrolled 200506/12/2013 documented as of this encounter (statuses as of 12/01/2022) [facility] History of Past illness Narrative* Problem Noted Date Resolved Date Acute respiratory failure 08/08/20182017 Exacerbation of asthma 08/08/2018 8 Respiratory failure 08/08/2018 08/08/2018 Hypoxemia 08/16/2017 08/08/2018 Acidosis 08/01/2017 08/08/2018 Acute kidney failure, unspecified 08/01/2017 08/08/2018 Acute posthemorrhagic anemia 08/01/201702/2018 Chronic obstructive pulmonar y disease with acute exacerbation 08/01/2017 11/11/2018 Ventricular tachycardia 08/01/2017 11/11/19 19 Falls 07/03/2016 07/03/2017 Weakness 07/03/2016 07/03/2017 Difficulty walking 07/03/2016 07/03/2017 Squamous cell skin cancer, jawline 01/30/2015 08/08/2018 Complete rupture of rotator cuff 08/05/2013 08/08/2018 Subacromial bursitis 08/05/2013 08/08/2018 DM w/o complication type II, uncontrolled 200506/12/2013 documented as of this encounter (statuses as of 12/15/2022) [facility] of Past illness Narrative* Problem Noted Date Resolved Date Acute respiratory failure 08/08/20182017 Exacerbation of asthma 08/08/2018 8 Respiratory failure 08/08/2018 08/08/2018 Hypoxemia 08/16/2017 08/08/2018 Acidosis 08/01/2017 08/08/2018 Acute kidney failure, unspecified 08/01/2017 08/08/2018 Acute posthemorrhagic anemia 08/01/201702/2018 Chronic obstructive pulmonar y disease with acute exacerbation 08/01/2017 11/11/2018 Ventricular tachycardia 08/01/2017 11/11/19 19 Falls 07/03/2016 07/03/2017 Weakness 07/03/2016 07/03/2017 Difficulty walking 07/03/2016 07/03/2017 [facility] 08/08/2018 Complete rupture of rotator cuff 08/05/2013 08/08/2018 Subacromial bursitis 08/05/2013 08/08/2018 DM w/o complication type II, uncontrolled 200506/12/2013 documented as of this encounter (statuses as of 02/02/2023) [facility] History of Past illness Narrative* Problem Noted Date Resolved Date Acute respiratory failure 08/08/20182017 Exacerbation of asthma 08/08/2018 8 Respiratory failure 08/08/2018 08/08/2018 Hypoxemia 08/16/2017 08/08/2018 Acidosis 08/01/2017 08/08/2018 Acute kidney failure, unspecified 08/01/2017 08/08/2018 Acute posthemorrhagic anemia 08/01/201702/2018 Chronic obstructive pulmonar y disease with acute exacerbation 08/01/2017 11/11/2018 Ventricular tachycardia 08/01/2017 11/11/19 19 Falls 07/03/2016 07/03/2017 Weakness 07/03/2016 07/03/2017 Difficulty walking 07/03/2016 07/03/2017 Squamous cell skin cancer, jawline 01/30/2015 08/08/2018 Complete rupture of rotator cuff 08/05/2013 08/08/2018 Subacromial bursitis 08/05/2013 08/08/2018 DM w/o complication type II, uncontrolled 200506/12/2013 documented as of this encounter (statuses as of 02/03/2023) [facility] History of Past illness Narrative* Problem Noted Date Resolved Date Acute respiratory failure 08/08/20182017 Exacerbation of asthma 08/08/2018 8 Respiratory failure 08/08/2018 08/08/2018 Hypoxemia 08/16/2017 08/08/2018 Acidosis 08/01/2017 08/08/2018 Acute kidney failure, unspecified 08/01/2017 08/08/2018 Acute posthemorrhagic anemia 08/01/201702/2018 Chronic obstructive pulmonar y disease with acute exacerbation 08/01/2017 11/11/2018 Ventricular tachycardia 08/01/2017 11/11/19 19 Falls 07/03/2016 07/03/2017 Weakness 07/03/2016 07/03/2017 Difficulty walking 07/03/2016 07/03/2017 Squamous cell skin cancer, jawline 01/30/2015 08/08/2018 Complete rupture of rotator cuff 08/05/2013 08/08/2018 Subacromial bursitis 08/05/2013 08/08/2018 DM w/o complication type II, uncontrolled 200506/12/2013 documented as of this encounter (statuses as of 03/03/2023) [facility] History of Past illness Narrative* Problem Noted Date Resolved Date Acute respiratory failure 08/08/20182017 Exacerbation of asthma 08/08/2018 8 Respiratory failure 08/08/2018 08/08/2018 Hypoxemia 08/16/2017 08/08/2018 Acidosis 08/01/2017 08/08/2018 Acute kidney failure, unspecified 08/01/2017 08/08/2018 Acute posthemorrhagic anemia 08/01/201702/2018 Chronic obstructive pulmonar y disease with acute exacerbation 08/01/2017 11/11/2018 Ventricular tachycardia 08/01/2017 11/11/19 19 Falls 07/03/2016 07/03/2017 Weakness 07/03/2016 07/03/2017 Difficulty walking 07/03/2016 07/03/2017 Squamous cell skin cancer, jawline 01/30/2015 08/08/2018 Complete rupture of rotator cuff 08/05/2013 08/08/2018 Subacromial bursitis 08/05/2013 08/08/2018 DM w/o complication type II, uncontrolled 200506/12/2013 documented as of this encounter (statuses as of 04/09/2023) [facility] of Past illness Narrative* Problem Noted Date Diagnosed Date Resolved Date Acute respiratory failure 08/08/2018 Exacerbation of asthma 08/08/201808/08 Respiratory failure 08/08/2018 08/08/20 18 Hypoxemia 08/16/2017 08/08/2018 Acidosis 08/01/2017 08/08/2018 Acute kidney failure, unspecified 08/01/2017 08/08/2018 Acute posthemorrhagic anemia 08/01/2017 08/08/2018 Chronic obstructive pulmonar y disease with acute exacerbation 08/01/2017 11/11/2018 Ventricular tachycardia 08/01/2017 01/0 05/2019 Falls 07/03/2016 07/03/2017 Weakness 07/03/2016 07/03/2017 Difficulty walking 07/03/2016 7 Squamous cell skin cancer, [facility] 01/30/2015 08/08/2018 Complete rupture of rotator cuff 08/05/2013 08/08/2018 Subacromial bursitis 08/05/2013 018 DM w/o complication type II, uncontrolled 12/22/2005 06/12/2013 documented as of this encounter (statuses as of 06/08/2023) [facility] History of Past illness Narrative* Problem Noted Date Diagnosed Date Resolved Date Acute respiratory failure 08/08/2018 Exacerbation of asthma 08/08/201808/08 Respiratory failure 08/08/2018 08/08/20 18 Hypoxemia 08/16/2017 08/08/2018 Acidosis 08/01/2017 08/08/2018 Acute kidney failure, unspecified 08/01/2017 08/08/2018 Acute posthemorrhagic anemia 08/01/2017 08/08/2018 Chronic obstructive pulmonar y disease with acute exacerbation 08/01/2017 11/11/2018 Ventricular tachycardia 08/01/2017 01/0 05/2019 Falls 07/03/2016 07/03/2017 Weakness 07/03/2016 07/03/2017 Difficulty walking 07/03/2016 7 Squamous cell skin cancer, jawline 01/30/2015 08/08/2018 Complete rupture of rotator cuff 08/05/2013 08/08/2018 Subacromial bursitis 08/05/2013 018 DM w/o complication type II, uncontrolled 12/22/2005 06/12/2013 documented as of this encounter (statuses as of 07/17/2023) [facility] of Past illness Narrative* Problem Noted Date Diagnosed Date Resolved Date Acute respiratory failure 08/08/2018 Exacerbation of asthma 08/08/201808/08 Respiratory failure 08/08/2018 08/08/20 18 Hypoxemia 08/16/2017 08/08/2018 Acidosis 08/01/2017 08/08/2018 Acute kidney failure, unspecified 08/01/2017 08/08/2018 Acute posthemorrhagic anemia 08/01/2017 08/08/2018 Chronic obstructive pulmonar y disease with acute exacerbation 08/01/2017 11/11/2018 Ventricular tachycardia 08/01/2017 01/0 05/2019 Falls 07/03/2016 07/03/2017 Weakness 07/03/2016 07/03/2017 Difficulty walking 07/03/2016 7 Squamous cell skin cancer, jawline 01/30/2015 08/08/2018 Complete rupture of rotator cuff 08/05/2013 08/08/2018 Subacromial bursitis 08/05/2013 018 DM w/o complication type II, uncontrolled 12/22/2005 06/12/2013 documented as of this encounter (statuses as of 08/17/2023) [facility] of Past illness Narrative* Problem Noted Date Diagnosed Date Resolved Date Acute respiratory failure 08/08/2018 Exacerbation of asthma 08/08/201808/08 Respiratory failure 08/08/2018 08/08/20 18 Hypoxemia 08/16/2017 08/08/2018 Acidosis 08/01/2017 08/08/2018 Acute kidney failure, unspecified 08/01/2017 08/08/2018 Acute posthemorrhagic anemia 08/01/2017 08/08/2018 Chronic obstructive pulmonar y disease with acute exacerbation 08/01/2017 11/11/2018 Ventricular tachycardia 08/01/2017 01/0 05/2019 Falls 07/03/2016 07/03/2017 Weakness 07/03/2016 07/03/2017 Difficulty walking 07/03/2016 7 Squamous cell skin cancer, jawline 01/30/2015 08/08/2018 Complete rupture of rotator cuff 08/05/2013 08/08/2018 Subacromial bursitis 08/05/2013 018 DM w/o complication type II, uncontrolled 12/22/2005 06/12/2013 documented as of this encounter (statuses as of 08/20/2023) [facility] of Past illness Narrative* Problem Noted Date Diagnosed Date Resolved Date Acute respiratory failure 08/08/2018 Exacerbation of asthma 08/08/201808/08 Respiratory failure 08/08/2018 08/08/20 18 Hypoxemia 08/16/2017 08/08/2018 Acidosis 08/01/2017 08/08/2018 Acute kidney failure, unspecified 08/01/2017 08/08/2018 Acute posthemorrhagic anemia 08/01/2017 08/08/2018 Chronic obstructive pulmonar y disease with acute exacerbation 08/01/2017 11/11/2018 Ventricular tachycardia 08/01/2017 01/0 05/2019 Falls 07/03/2016 07/03/2017 Weakness 07/03/2016 07/03/2017 Difficulty walking 07/03/2016 7 Squamous cell skin cancer, jawline 01/30/2015 08/08/2018 Complete rupture of rotator cuff 08/05/2013 08/08/2018 Subacromial bursitis 08/05/2013 018 DM w/o complication type II, uncontrolled 12/22/2005 06/12/2013 documented as of this encounter (statuses as of 08/21/2023) [facility] illness Narrative* Problem Noted Date Diagnosed Date Resolved Date Acute respiratory failure 08/08/2018 Exacerbation of asthma 08/08/201808/08 Respiratory failure 08/08/2018 08/08/20 18 Hypoxemia 08/16/2017 08/08/2018 Acidosis 08/01/2017 08/08/2018 Acute kidney failure, unspecified 08/01/2017 08/08/2018 Acute posthemorrhagic anemia 08/01/2017 08/08/2018 Chronic obstructive pulmonar y disease with acute exacerbation 08/01/2017 11/11/2018 Ventricular tachycardia 08/01/2017/05/2019 Falls 07/03/2016 07/03/2017 Weakness 07/03/2016 07/03/2017 Difficulty walking 07/03/2016 7 Squamous cell skin cancer, jawline 01/30/2015 08/08/2018 Complete rupture of rotator cuff 08/05/2013 08/08/2018 Subacromial bursitis 08/05/2013 018 DM w/o complication type II, uncontrolled 12/22/2005 06/12/2013 documented as of this encounter (statuses as of 09/22/2023) [facility] Type 2 diabetes mellitus with stage 3a chronic kidney disease, with long-term current use of insulin ([facility])- Primary [facility] Diagnosis Encounter for pessary maintenance- Primary Fitting and adjustment of other device Cystocele, midline [facility] Diagnosis Gastroesophageal reflux disease without esophagitis Esophageal reflux Hypokalemia Hypopotassemia [facility] Diagnosis Diabetes mellitus due to underlying condition with hyperglycemia, with long-term current use of insulin (HCC)- Primary Urinary frequency Uncontrolled type 2 diabetes mellitus with hyperglycemia (HCC) Hyperlipidemia with target LDL less than 100 Other and unspecified hyperlipidemia Hypothyroidism due to acquired atrophy of thyroid Restless leg Restless legs syndrome (RLS) Essential (primary) hypertension Unspecified essential hypertension Situational depression Adjustment disorder with depressed mood Sleeping difficulty Sleep disturbance, unspecified Acute cystitis without hematuria Acute cystitis Cold feet Other symptoms involving skin and integumentary tissues Advanced directives, counseling/discussion Other specified counseling [facility] Diagnosis Stage 3b chronic kidney disease (HCC)- Primary [facility] Diagnosis Encounter for pessary maintenance- Primary Fitting and adjustment of other device Cystocele, midline [facility] Diagnosis Mild intermittent asthma with acute exacerbation Unspecified asthma, with exacerbation [facility] Diagnosis Hypokalemia Hypopotassemia [facility] Diagnosis Uncontrolled type 2 diabetes mellitus with hyperglycemia (HCC)- Primary Mild intermittent asthma with acute exacerbation Unspecified asthma, with exacerbation Stage 3b chronic kidney disease (HCC) Essential (primary) hypertension Unspecified essential hypertension Acute cough [facility] Diagnosis Gastroesophageal reflux disease without esophagitis Esophageal reflux [facility] Diagnosis Situational depression Adjustment disorder with depressed mood Essential (primary) hypertension Unspecified essential hypertension [facility] Diagnosis Hypokalemia Hypopotassemia [facility] Diagnosis Encounter for pessary maintenance- Primary Fitting and adjustment of other device Cystocele, midline [facility] Diagnosis Hypokalemia Hypopotassemia [facility] Diagnosis Type 2 diabetes mellitus with stage 3 chronic kidney disease, without long-term current use of insulin (HCC) [facility] Diagnosis Type 2 diabetes mellitus with stage 3a chronic kidney disease, with long-term current use of insulin (HCC)- Primary [facility] Diagnosis Hypokalemia Hypopotassemia [facility] Diagnosis Vaginal erosion secondary to pessary use, subsequent encounter- Primary Encounter for pessary maintenance Fitting and adjustment of other device Cystocele, midline Vaginal atrophy Postmenopausal atrophic vaginitis [facility] Diagnosis Problem with vaginal pessary, subsequent encounter- Primary Encounter for fitting and adjustment of pessary Fitting and adjustment of other device documented in this encounter [facility] for referral (narrative)* Outpatient Procedure (Routine) - Authorized Specialty Diagnoses / Procedures Referred By Deedee t Referred To [facility] Diagnoses Cold feet Diabetes mellitus due to underlying condition with hyperglycemia, with long-term current use of insulin (HCC) Procedures PVR ANK PRESS [facility] NON-INVAS PHYSIOLOGIC STD EXTREMITY ART 2 LEVEL Becca Jacobs APRN.MGMT SPECIALIST [address] [place] [address] [facility] [place] [address] [place] [address] Referral ID Status Reason Start Date Expiration Date Visits Requested Visits Authorized [id number] Authorized Auto-Generat ed Referral 06/16/2022 06/16/2023 1 1 * Medication Prior Authorization - Authorized Specialty Diagnoses / Procedures Referred By Deedee t Referred To Contact Becca Jacobs APRN.MGMT SPECIALIST [address] [place] [address] Referral ID Status Reason Start Date Expiration Date V isits Requested Visits Authorized [id number] Authorized 11/05/2021 09/14/2022 1 1 [facility] Summary Purpose Family History No Family History Records FoundNo Family History Records FoundNo Family History Records Found Advance Directives No Advanced Directives Records FoundNo Advanced Directives Records FoundNo Advanced Directives Records Found Additional Source Comments INFORMATION SOURCE (unrecogn ized section and content) DATE CREATED AUTHOR AUTHOR'S ORGANIZ ATION 05/01/2018 [facility] DATE CREATED AUTHOR AUTHOR'S ORGANIZ ATION 11/30/2023 [facility] Source Comments (unrecognize d section and content) In the event this informatio n is protected by the Federal Confidentiality of Alcohol and Drug Abuse Patient Records regulations: The Federal rules restrict any use of the information to criminally investigate or prosecute any alcohol or drug abuse patient.[facility] the event this information is protected by the Federal Confidentiality of Alcohol and Drug Abuse Patient Records regulations: The Federal rules restrict any use of the information to criminally investigate or prosecute any alcohol or drug abuse patient.[facility] the event this information is protected by the Federal Confidentiality of Alcohol and Drug Abuse Patient Records regulations: The Federal rules restrict any use of the information to criminally investigate or prosecute any alcohol or drug abuse patient.[facility] the event this information is protected by the Federal Confidentiality of Alcohol and Drug Abuse Patient Records regulations: The Federal rules restrict any use of the information to criminally investigate or prosecute any alcohol or drug abuse patient.[facility] CenterIn the event this information is protected by the Federal Confidentiality of Alcohol and Drug Abuse Patient Records regulations: The Federal rules restrict any use of the information to criminally investigate or prosecute any alcohol or drug abuse patient.[facility] CenterIn the event this information is protected by the Federal Confidentiality of Alcohol and Drug Abuse Patient Records regulations: The Federal rules restrict any use of the information to criminally investigate or prosecute any alcohol or drug abuse patient.[facility] CenterIn the event this information is protected by the Federal Confidentiality of Alcohol and Drug Abuse Patient Records regulations: The Federal rules restrict any use of the information to criminally investigate or prosecute any alcohol or drug abuse patient.[facility] CenterIn the event this information is protected by the Federal Confidentiality of Alcohol and Drug Abuse Patient Records regulations: The Federal rules restrict any use of the information to criminally investigate or prosecute any alcohol or drug abuse patient.[facility] CenterIn the event this information is protected by the Federal Confidentiality of Alcohol and Drug Abuse Patient Records regulations: The Federal rules restrict any use of the information to criminally investigate or prosecute any alcohol or drug abuse patient.[facility] CenterIn the event this information is protected by the Federal Confidentiality of Alcohol and Drug Abuse Patient Records regulations: The Federal rules restrict any use of the information to criminally investigate or prosecute any alcohol or drug abuse patient.[facility] CenterIn the event this information is protected by the Federal Confidentiality of Alcohol and Drug Abuse Patient Records regulations: The Federal rules restrict any use of the information to criminally investigate or prosecute any alcohol or drug abuse patient.[facility] CenterIn the event this information is protected by the Federal Confidentiality of Alcohol and Drug Abuse Patient Records regulations: The Federal rules restrict any use of the information to criminally investigate or prosecute any alcohol or drug abuse patient.[facility] CenterIn the event this information is protected by the Federal Confidentiality of Alcohol and Drug Abuse Patient Records regulations: The Federal rules restrict any use of the information to criminally investigate or prosecute any alcohol or drug abuse patient.[facility] CenterIn the event this information is protected by the Federal Confidentiality of Alcohol and Drug Abuse Patient Records regulations: The Federal rules restrict any use of the information to criminally investigate or prosecute any alcohol or drug abuse patient.[facility] CenterIn the event this information is protected by the Federal Confidentiality of Alcohol and Drug Abuse Patient Records regulations: The Federal rules restrict any use of the information to criminally investigate or prosecute any alcohol or drug abuse patient.[facility] CenterIn the event this information is protected by the Federal Confidentiality of Alcohol and Drug Abuse Patient Records regulations: The Federal rules restrict any use of the information to criminally investigate or prosecute any alcohol or drug abuse patient.[facility] CenterIn the event this information is protected by the Federal Confidentiality of Alcohol and Drug Abuse Patient Records regulations: The Federal rules restrict any use of the information to criminally investigate or prosecute any alcohol or drug abuse patient.[facility] CenterIn the event this information is protected by the Federal Confidentiality of Alcohol and Drug Abuse Patient Records regulations: The Federal rules restrict any use of the information to criminally investigate or prosecute any alcohol or drug abuse patient.[facility] CenterIn the event this information is protected by the Federal Confidentiality of Alcohol and Drug Abuse Patient Records regulations: The Federal rules restrict any use of the information to criminally investigate or prosecute any alcohol or drug abuse patient.[facility] CenterIn the event this information is protected by the Federal Confidentiality of Alcohol and Drug Abuse Patient Records regulations: The Federal rules restrict any use of the information to criminally investigate or prosecute any alcohol or drug abuse patient.[facility] CenterIn the event this information is protected by the Federal Confidentiality of Alcohol and Drug Abuse Patient Records regulations: The Federal rules restrict any use of the information to criminally investigate or prosecute any alcohol or drug abuse patient.[facility] CenterIn the event this information is protected by the Federal Confidentiality of Alcohol and Drug Abuse Patient Records regulations: The Federal rules restrict any use of the information to criminally investigate or prosecute any alcohol or drug abuse patient.[facility] CenterIn the event this information is protected by the Federal Confidentiality of Alcohol and Drug Abuse Patient Records regulations: The Federal rules restrict any use of the information to criminally investigate or prosecute any alcohol or drug abuse patient.[facility] CenterIn the event this information is protected by the Federal Confidentiality of Alcohol and Drug Abuse Patient Records regulations: The Federal rules restrict any use of the information to criminally investigate or prosecute any alcohol or drug abuse patient.[facility] CenterIn the event this information is protected by the Federal Confidentiality of Alcohol and Drug Abuse Patient Records regulations: The Federal rules restrict any use of the information to criminally investigate or prosecute any alcohol or drug abuse patient.[facility] CenterIn the event this information is protected by the Federal Confidentiality of Alcohol and Drug Abuse Patient Records regulations: The Federal rules restrict any use of the information to criminally investigate or prosecute any alcohol or drug abuse patient.[facility] CenterIn the event this information is protected by the Federal Confidentiality of Alcohol and Drug Abuse Patient Records regulations: The Federal rules restrict any use of the information to criminally investigate or prosecute any alcohol or drug abuse patient.[facility] CenterIn the event this information is protected by the Federal Confidentiality of Alcohol and Drug Abuse Patient Records regulations: The Federal rules restrict any use of the information to criminally investigate or prosecute any alcohol or drug abuse patient.[facility] Reason for Visit (unrecogniz ed section and content) Reason Comments pessary check Reason Onset Date Comments Refill Request 02/03/2022 Reason Onset Date Comments Refill Request 04/10/2022 Reason Comments Insurance Authorization Reason Comments Establish Care Reason Comments Results Reason Comments Pessary Reason Onset Date Comments Refill Request 07/21/2022 Reason Onset Date Comments Refill Request 07/28/2022 Reason Comments Acute Visit Cough, shortness of breath, wheezing x2 weeks Reason Onset Date Comments Refill Request 10/18/2022 Reason Comments Vaginal Problem Pessary check Reason Onset Date Comments Low Blood Sugar 12/14/2022 81/84 Reason Onset Date Comments Refill Request 02/02/2023 Reason Onset Date Comments Refill Request 02/03/2023 Reason Onset Date Comments Refill Request 12/14/2022 Reason Comments Patient Update Reason Onset Date Comments Refill Request 07/16/2023 Reason Comments Pessary Reason Comments Patient Question Reason Comments Follow Up 6 month Care Teams (unrecognized sec tion and content) Rounding And Backing Machine Operator Relationship Specialty Start Date End Date Aliya Salazar MD [address] [facility] [place] [address] PCP - General Internal Medicine 11/09/21 Benja Desai, TIPPLE MECHANIC.ALEXANDRA, DNP [address] [facility] [place] [address] Nurse Practitioner Family Practice 11/09/21 Rounding And Backing Machine Operator Relationship Specialty Start Date End Date Becca Jacobs, TIPPLE MECHANIC.MGMT SPECIALIST [address] [facility] [place] [address] PCP - General Family Practice 06/16/22 Benja Desai, TIPPLE MECHANIC.MGMT SPECIALIST, DNP [address] [facility] [place] [address] Nurse Practitioner Family Practice 11/09/21 Rounding And Backing Machine Operator Relationship Specialty Start Date End Date Becca Jacobs, TIPPLE MECHANIC.MGMT SPECIALIST [address] [facility] [place] [address] PCP - General Family Practice 06/16/22 Benja Desai, TIPPLE MECHANIC.ALEXANDRA, DNP [address] [place] [address] Nurse Practitioner Family Practice 11/09/21 Rounding And Backing Machine Operator Relationship Specialty Start Date End Date Becca Jacobs, TIPPLE MECHANIC.MGMT SPECIALIST [address] [facility] [address] PCP - General Family Practice 06/16/22 Benja Desai, TIPPLE MECHANIC.MGMT SPECIALIST, DNP [address] [place] [address] Nurse Practitioner Family Practice 11/09/21 Rounding And Backing Machine Operator Relationship Specialty Start Date End Date Becca Jacobs, TIPPLE MECHANIC.MGMT SPECIALIST [address] [place] [address] PCP - General Family Practice 06/16/22 Benja Desai, TIPPLE MECHANIC.ALEXANDRA, DNP [address] [place] [address] Nurse Practitioner Family Practice 11/09/21 Rounding And Backing Machine Operator Relationship Specialty Start Date End Date Becca Jacobs, TIPPLE MECHANIC.MGMT SPECIALIST [address] [place] [address] PCP - General Family Medicine 06/16/22 Benja Desai, TIPPLE MECHANIC.ALEXANDRA, DNP [address] [place] [address] Nurse Practitioner Family Medicine 11/09/21 Rounding And Backing Machine Operator Relationship Specialty Start Date End Date Becca Jacobs TIPPLE MECHANIC.MGMT SPECIALIST [address] [place] [address] PCP - General Family Medicine 06/16/22 Benja Desai, TIPPLE MECHANIC.ALEXANDRA, DNP [address] [place] [address] Nurse Practitioner Family Medicine 11/09/21 Rounding And Backing Machine Operator Relationship Specialty Start Date End Date Becca Jacobs, TIPPLE MECHANIC.MGMT SPECIALIST [address] [place] [address] PCP - General Family Medicine 06/16/22 Benja Desai, TIPPLE MECHANIC.MGMT SPECIALIST, DNP [address] [place] [address] Nurse Practitioner Family Medicine 11/09/21 Rounding And Backing Machine Operator Relationship Specialty Start Date End Date Becca Jacobs, TIPPLE MECHANIC.MGMT SPECIALIST [address] [facility] [place] [address] PCP - General Family Medicine 06/16/22 Benja Desai, TIPPLE MECHANIC.MGMT SPECIALIST, DNP [address] [place] [address] Nurse Practitioner Family Medicine 11/09/21 Rounding And Backing Machine Operator Relationship Specialty Start Date End Date Becca Jacobs, TIPPLE MECHANIC.MGMT SPECIALIST [address] [facility] [place] [address] PCP - General Family Medicine 06/16/22 Benja Desai, TIPPLE MECHANIC.MGMT SPECIALIST, DNP [address] [place] [address] Nurse Practitioner Family Medicine 11/09/21 Rounding And Backing Machine Operator Relationship Specialty Start Date End Date Becca Jacobs, TIPPLE MECHANIC.MGMT SPECIALIST [address] [place] [address] PCP - General Family Medicine 06/16/22 Benja Desai, TIPPLE MECHANIC.MGMT SPECIALIST, DNP [address] [place] [address] Nurse Practitioner Family Medicine 11/09/21 Rounding And Backing Machine Operator Relationship Specialty Start Date End Date Becca Jacobs, TIPPLE MECHANIC.MGMT SPECIALIST [address] [facility] [place] [address] PCP - General Family Medicine 06/16/22 Benja Desai, TIPPLE MECHANIC.ALEXANDRA, DNP [address] [place] [address] Nurse Practitioner Family Medicine 11/09/21 Rounding And Backing Machine Operator Relationship Specialty Start Date End Date Becca Jacobs, TIPPLE MECHANIC.MGMT SPECIALIST [address] [place] [address] PCP - General Family Medicine 06/16/22 Benja Desai, TIPPLE MECHANIC.ALEXANDRA, DNP [address] [place] [address] Nurse Practitioner Family Medicine 11/09/21 Rounding And Backing Machine Operator Relationship Specialty Start Date End Date Becca Jacobs, TIPPLE MECHANIC.MGMT SPECIALIST [address] [facility] [place] [address] PCP - General Family Medicine 06/16/22 Benja Desai, TIPPLE MECHANIC.ALEXANDRA DNP [address] [facility] [place] [address] Nurse Practitioner Family Medicine 11/09/21 Rounding And Backing Machine Operator Relationship Specialty Start Date End Date Becca Jacobs TIPPLE MECHANIC.MGMT SPECIALIST [address] [place] [address] PCP - General Family Medicine 06/16/22 Benja Desai, TIPPLE MECHANIC.ALEXANDRA, DNP [address] [place] [address] Nurse Practitioner Family Medicine 11/09/21 Rounding And Backing Machine Operator Relationship Specialty Start Date End Date Becca Jacobs APRN.MGMT SPECIALIST [address] [place] [address] PCP - General Family Medicine 06/16/22 Benja Desai, TIPPLE MECHANIC.FABI MORRIS [address] [place] [address] Nurse Practitioner Family Medicine 11/09/21 Rounding And Backing Machine Operator Relationship Specialty Start Date End Date Becca Jacobs APRN.MGMT SPECIALIST [address] [place] [address] PCP - General Family Medicine 06/16/22 Benja Desai, ERICK.FABI MORRIS [address] [place] [address] Nurse Practitioner Family Medicine 11/09/21 Rounding And Backing Machine Operator Relationship Specialty Start Date End Date Becca Jacobs APRN.MGMT SPECIALIST [address] [place] [address] PCP - General Family Medicine 06/16/22 Benja Desai, TIPPLE MECHANIC.FABI MORRIS [address] [place] [address] Nurse Practitioner Family Medicine 11/09/21 Rounding And Backing Machine Operator Relationship Specialty Start Date End Date Becca Jacobs TIPPLE MECHANIC.MGMT SPECIALIST [address] [place] [address] PCP - General Family Medicine 06/16/22 Benja Desai, TIPPLE MECHANIC.FABI MORRIS [address] [place] [address] Nurse Practitioner Family Medicine 11/09/21 Rounding And Backing Machine Operator Relationship Specialty Start Date End Date Becca Jacobs APRN.MGMT SPECIALIST [address] [place] [address] PCP - General Family Medicine 06/16/22 Benja Desai, TIPPLE MECHANIC.FABI MORRIS [address] [place] [address] Nurse Practitioner Family Medicine 11/09/21 FOR RECORDS PERTAINING TO PATIENTS WHO ARE OR HAVE BEEN ENROLLED IN A CHEMICAL DEPENDENCY/SUBSTANCEABUSE PROGRAM, SOME INFORMATION MAY BE OMITTED. This clinical summary was aggregated from multiple sources. Caution should be exercised in using it in the provision of clinical care. This summary normalizes information from multiple sources, and as a consequence, information in this document may materially change the coding, format and clinical context of patient data. In addition, data may be omitted in some cases. CLINICAL DECISIONS SHOULD BE BASED ON THE PRIMARY CLINICAL RECORDS. [facility]. provides no warranty or guarantee of the accuracy or completeness of information in this document.
--- NOTE | 2023-12-01 15:20 | NURSING ---
1449 STROKE ALERT CALLED PRIOR TO ARRIVAL
[2023-12-01 15:23] LABS: Absolute Lymphocyte Count 1.78 X10^3/uL (0.83-4.51); Absolute Neutrophil Count 7.2 X10^3/uL (2.0-7.7); Basophil# 0.11 X10^3/uL; Basophil% 1.1 % (0-1); Eosinophil# 0.16 X10^3/uL; Eosinophils% 1.6 % (0-5); Hemoglobin 13.6 g/dL (12.0-15.0); Lymphocyte # 1.78 X10^3/ul (0.83-4.51); Lymphocyte % 17.3 % (19-41); Mean Corp Hgb Conc 30.9 g/dL (32-36); Mean Corpuscular Volume 87.3 fL (81-99); Mean Platelet Vol. 11.1 fl (6.2-12.0); Monocyte# 1.04 X10^3/uL; Monocyte% 10.1 % (0-10); NRBC Flagged by Analyzer 0 % (0-5); Neutrophil # 7.18 X10^3/uL (2.7-7.7); Neutrophil % 69.6 % (47-70); Platelet Count 263 K/mm3 (150-450); RBC Distribution Width CV 14.1 % (11.6-14.6); Red Blood Count 5.04 M/mm3 (4.2-5.4); White Blood Count 10.3 K/mm3 (4.4-11.0)
[2023-12-01 15:36] LABS: International Normalized Ratio 1.2; Prothrombin Time (Protime)PT. 15.1 SECONDS (11.7-14.9)
[2023-12-01 15:37] LABS: Partial Thromboplast Time 26.9 Seconds (24.1-36.2)
--- NOTE | 2023-12-01 15:48 | ED.VIS.STROK ---
HPI History of Present Illness Chief Complaint: Stroke Alert Informant: patient, family and EMS Narrative Narrative: 88-year-old female presenting to the emergency room as a prehospital stroke alert by EMS. At 1400 hrs. the patient was riding in a vehicle coming home from a birthday constitution party. This was last known well time. At approximately 1415 hrs. they arrived home and the patient was noted to not be moving the left side of her body. She was carried inside and EMS was called. She has a history of atrial fibrillation but not on blood thinners. The patient per EMS seem to be looking to the left not moving the left side of her body and saying help me . PFSH [facility] Medical History Acute respiratory failure Asthma Atherosclerosis of coronary artery of [place] heart without angina pectoris Chronic congestive heart failure Depression Essential (primary) hypertension Fatigue GERD (gastroesophageal reflux disease) Hiatal hernia Hip fracture Hyperlipidemia Hypothyroidism Iron deficiency anemia Neuropathic pain Non-rheumatic tricuspid valve insufficiency Non-ST elevation (NSTEMI) myocardial infarction Nonischemic cardiomyopathy Nonrheumatic mitral (valve) insufficiency Osteoarthritis PVC's (premature ventricular contractions) PVT (paroxysmal ventricular tachycardia) Restless leg syndrome Secondary pulmonary arterial hypertension Type 2 diabetes mellitus Home Medications levothyroxine 75 mcg tablet 75 mcg PO DAILY THYROID 11/12/13 [History Last Taken 12/23/18 06:30 75 MCG] simvastatin 40 mg tablet 40 mg PO QHS CHOLESTEROL 11/12/13 [History Last Taken 07/17/17 22:00 40 mg] cyclobenzaprine 10 mg tablet 10 mg PO TID PRN MUSCLE SPASMS 11/06/17 [History Last Taken Unknown] albuterol sulfate 90 mcg/actuation aerosol inhaler 2 puff inhalation Q6H PRN PRN Sob &/Or Wheezing 12/04/17 [History Last Taken Unknown] potassium chloride 10 mEq tablet,extended release 20 meq PO DAILY SUPPLEMENT 12/04/17 [History Last Taken Unknown] meloxicam 15 mg tablet 15 mg PO DAILY 90 days ##90 06/26/18 [History Last Taken Unknown] fluoxetine 20 mg capsule 20 mg PO DAILY stress 01/14/19 [History Last Taken Unknown] melatonin 10 mg capsule 10 mg PO HS PRN Insomnia 01/14/19 [History Last Taken Unknown] aspirin 81 mg tablet,delayed release (Adult Aspirin Regimen) 81 mg PO DAILY 07/17/19 [History Last Taken Unknown] carvedilol 12.5 mg tablet (Coreg) 12.5 mg PO BID 07/17/19 [History Last Taken Unknown] loperamide 2 mg capsule (Anti-Diarrheal (loperamide)) 10 mg PO DAILY PRN DIARRHEA 11/06/23 [History Last Taken Unknown] losartan 50 mg tablet 50 mg PO DAILY hyperlipidemia 11/06/23 [History Last Taken Unknown] omeprazole 40 mg capsule,delayed release 40 mg PO DAILY GERD 11/06/23 [History Last Taken Unknown] pramipexole 0.125 mg tablet 0.125 mg PO QHS MUSCLE CRAMPING 11/06/23 [History Last Taken Unknown] dulaglutide 0.75 mg/0.5 mL subcutaneous pen injector (Trulicity) 0.75 mg subcut QWEEK 11/12/23 [History Last Taken Unknown] estradiol 0.01% (0.1 mg/gram) vaginal cream 1 g vaginal 2XW 11/12/23 [History Last Taken Unknown] ferrous sulfate 325 mg (65 mg iron) tablet 325 mg PO DAILY 11/12/23 [History Last Taken Unknown] fluoxetine 10 mg tablet 10 mg PO DAILY 11/12/23 [History Last Taken Unknown] furosemide 20 mg tablet 20 mg PO QDAY PRN SWELLING 11/12/23 [History Last Taken Unknown] insulin human U-100 NPH-regulr 70-30 mix 100 unit/mL subcutaneous susp (Novolin 70/30 U-100 Insulin) 14 unit subcut QHS 11/12/23 [History Last Taken Unknown] nystatin 100,000 unit/gram topical powder 1 applic topical .qid 11/12/23 [History Last Taken Unknown] Allergy/AdvReac Type Severity Reaction Status Date / Time No Known Allergies Allergy Verified 11/06/23 16:32 Family History Sister Asthma Colon cancer Diabetes Brother Cancer Throat cancer Father Prostate cancer Daughter Myocardial infarction Surgical History History of left heart catheterization (LHC) (02/14/17) History of right hip replacement 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) Social History Smoking Status: Never smoker alcohol intake: never diet: diabetic what type of physical activity do you participate in: none seatbelt use: always ROS ROS ED Review of Systems ROS Unobtainable: due to mental status EXAM Physical Exam Const Vital Signs: 12/01/23 15:23 12/01/23 15:30 12/01/23 15:55 Temperature 96.7 F L Temperature Source Temporal Pulse Rate 84 Respiratory Rate 19 H Blood Pressure 126/89 H 142/91 H Blood Pressure Mean 101 Blood Pressure Source Blood Pressure Position Blood Pressure Location Pulse Ox 93 97 Oxygen Delivery Method Nasal Cannula Nasal Cannula Oxygen Flow Rate (L/min) 6 4 12/01/23 16:10 12/01/23 16:25 12/01/23 16:40 Temperature 96.8 F L 96.5 F L 96.8 F L Temperature Source Temporal Temporal Temporal Pulse Rate 79 86 82 Respiratory Rate 21 H 21 H 24 H Blood Pressure 142/94 H 142/94 H 123/89 H Blood Pressure Mean 110 110 100 Blood Pressure Source Monitor Monitor Monitor Blood Pressure Position Semi-Fowlers Semi-Fowlers Semi-Fowlers Blood Pressure Location Right Arm Right Arm Left Arm Pulse Ox 99 98 98 Oxygen Delivery Method Nasal Cannula Nasal Cannula Nasal Cannula Oxygen Flow Rate (L/min) 3 3 3 Positive well nourished and well developed General Appearance ED: well developed HEENT Reports normocephalic, head/scalp atraumatic and moist mucous membranes Eyes PERRL and EOMs intact bilaterally Neck no lymphadenopathy, supple and no JVD Resp normal respiratory effort and clear to auscultation bilaterally Cardio regular rate and no murmurs Rhythm: abnormal rhythm irregularly irregular GI normal to inspection, nondistended, normoactive bowel sounds and non-tender Palpation: soft Back/Spine no CVA tenderness and normal ROM Extremity normal to inspection General Extremety ED: Negative for edema General Extremity: Negative for edema Neuro Neuro Narrative: Patient's eyes are open with her head turned toward the left and her eyes seem to be deviated to the left. Patient is not moving her left arm or leg. Patient says help me when I say her name. As I touch her hand after she says help me, I noticed that her hand starts to twitch and develops tonic-clonic like seizure activity of the left hand. I noticed that the left face also has tonic-clonic like activity. Eyes appear still deviated. Psych Mood & Affect: depressed and tearful Skin no rashes or lesions noted and no wounds MDM MDM MDM Narrative Medical decision making narrative: Patient received a milligram of Ativan as we took her to the CT scanner for CT of the brain. This terminated seizure activity. This was reviewed by myself and I do not see an intracranial hemorrhage. Therefore a CTA was obtained and she was brought back to the ED room. Keppra was ordered and the patient was assessed by [facility]. After their examination and discussion with myself and family shared decision making was used to come to the conclusion that we would give her TNK. Risk benefits were discussed with the patient's family. Due to the lack of EEG ability tonight and tomorrow we feel that is in the patient's best interest to be transferred to [facility]. Patient was given a detailed reassessment at 1645. Patient is now able to open her eyes and follow commands. I am able to get very minimal movement left arm left leg. There is a persistent left facial droop. She can say yes and no but I cannot get her to identify objects. I do not brick picker on dysarthria but again she is only saying yes or no minimally. And get her to close her eyes. Difficult to assess sensation given the patient's either mental status or aphasia. I brought daughters back to the room to be with her. We are currently awaiting transportation to [facility]. Urinalysis did return with evidence of infection and cultures were sent and she received Rocephin. History & Record Review Discussion w/independent historian: EMS personnel, Patient and Family Lab Data Attestation: I reviewed the patient's lab results. Labs: Laboratory Results - last 24 hr 12/01/23 12/01/23 15:14 15:44 WBC 10.3 RBC 5.04 Hgb 13.6 Hct 44.0 MCV 87.3 MCH 27.0 MCHC 30.9 L RDW Std Deviation 45.0 H RDW Coeff of Bhupinder 14.1 Plt Count 263 MPV 11.1 Immature Gran % (Auto) 0.300 Neut % (Auto) 69.6 Lymph % (Auto) 17.3 L [place] % (Auto) 10.1 H Eos % (Auto) 1.6 Baso % (Auto) 1.1 H Absolute Neuts (auto) 7.2 Absolute Lymphs (auto) 1.78 Nucleated RBC % 0 PT 15.1 H INR 1.2 APTT 26.9 Sodium 140 Potassium 5.5 H Chloride 111 H Carbon Dioxide 28.0 Anion Gap 1 L BUN 36 H Creatinine 1.32 H Estim Creat Clear Calc 37.00 Est GFR (MDRD) Af Amer 49 L Est GFR (MDRD) Non-Af 41 L BUN/Creatinine Ratio 27.3 H Glucose 155 H Calcium 8.7 Total Bilirubin 1.40 H Direct Bilirubin 0.33 H AST 31 ALT 22 Alkaline Phosphatase 82 Troponin I High Sens 13 Total Protein 6.5 Albumin 3.4 Globulin 3.1 Urine Color Yellow Urine Clarity Sl. Cloudy Urine pH 6.0 Ur Specific [place] 1.020 Urine Protein 30 H Urine Glucose (UA) Normal Urine Ketones 5 H Urine Occult Blood 25 H Urine Nitrite Positive H Urine Bilirubin 1 H Urine Urobilinogen 1 H Ur Leukocyte Esterase 100 H Urine RBC 0 SEEN Urine WBC 10-25 SEEN Ur Squamous Epith Cells 0 SEEN Urine Bacteria 2+ Urine Mucus 0 SEEN Radiography Diagnostic Testing: Clinical Impression(s) from Imaging Studies Brain CT 12/01/23 15:[address]: [address] evidence of intracranial bleeding or acute ischemic infarct at this time. 2. Total ASPECTS score: 10/10. 3. No significant change when compared to 08/03/2020. Electronically Signed: Miguel Angel Willis MD at 15:19 EST Reading Location ID and State: [address] [place] [address] , Service support , ADDENDUM: 12/01/23 1528 IMPRESSION: 1. No CT evidence of intracranial bleeding or acute ischemic infarct at this time. 2. Total ASPECTS score: 10/10. 3. No significant change when compared to 08/03/2020. N.B. : The above Results were Read Back by Miguel Angel Willis MD to Benja Burgos DO, and understanding confirmed on 12/01/2023 15:21:49 (ET). Electronically Signed: Miguel Angel Willis MD at 15:19 EST Reading Location ID and State: [facility] / [place] , Service support , Head/Neck CTA 12/01/23 15:07 IMPRESSION: 1. Negative CTA head. 2. Calcified plaques in both carotid bulbs but no significant stenosis or occlusion of both cervical carotid arteries. 3. Normal bilateral vertebral arteries. 4. Normal aortic arch and origins of the great vessels. 5. Left apical pleural scarring. N.B. : The above Results were Read Back by Miguel Angel Willis MD to Benja Burgos DO, and understanding confirmed on 12/01/2023 15:47:03 (ET). Electronically Signed: Miguel Angel Willis MD at 15:49 EST , ADDENDUM: 12/01/23 1556 IMPRESSION: 1. Negative CTA head. 2. Calcified plaques in both carotid bulbs but no significant stenosis or occlusion of both cervical carotid arteries. 3. Normal bilateral vertebral arteries. 4. Normal aortic arch and origins of the great vessels. 5. Left apical pleural scarring. N.B. : The above Results were Read Back by Miguel Angel Willis MD to Benja Burgos DO, and understanding confirmed on 12/01/2023 15:47:03 (ET). Electronically Signed: Miguel Angel Willis MD at 15:49 EST , EKG Initial EKG: Attestation: I personally reviewed and interpreted this EKG as follows: Comments: Atrial fibrillation with a ventricular rate of 71 beats per Management Discussion w/another healthcare provider: Lead Portfolio Manager ([facility] (Dr. Chopra)) and Radiologist Discharge Plan Triage Chief Complaint: Stroke Alert ED Provider: Benja Burgos Dx/Rx/DC Orders Clinical Impression: Acute stroke due to ischemia, Essential (primary) hypertension, Hyperlipidemia, Atrial fibrillation, chronic, Complex partial seizure, Acute UTI Prescriptions: No Action cyclobenzaprine 10 mg tablet 10 mg PO TID PRN (Reason: MUSCLE SPASMS) furosemide 20 mg tablet 20 mg PO QDAY PRN (Reason: SWELLING) meloxicam 15 mg tablet 15 mg PO DAILY 90 Days Qty: 90 Patient Comments: fluoxetine 20 mg capsule 20 mg PO DAILY melatonin 10 mg capsule 10 mg PO HS PRN (Reason: Insomnia) aspirin [Adult Aspirin Regimen] 81 mg tablet,delayed release (DR/EC) 81 mg PO DAILY carvedilol [Coreg] 12.5 mg tablet 12.5 mg PO BID estradiol 0.01 % (0.1 mg/gram) cream 1 g vaginal 2XW Patient Comments: PLEASE SEE ATTACHED FOR DETAILED DIRECTIONS nystatin 100,000 unit/gram powder 1 applic topical .qid Patient Comments: APPLY 1 APPLICATION TO AFFECTED AREA FOUR TIMES DAILY. fluoxetine 10 mg tablet 10 mg PO DAILY Trulicity 0.75 mg/0.5 mL pen injector 0.75 mg subcut QWEEK Patient Comments: INJECT 0.75 MG SUBCUTANEOUSLY ONE TIME A WEEK. ferrous sulfate 325 mg (65 mg iron) tablet 325 mg PO DAILY simvastatin 40 MG tablet 40 mg PO QHS Patient Comments: cholesterol levothyroxine 75 MCG tablet 75 mcg PO DAILY Patient Comments: thyroid potassium chloride 10 MEQ tablet extended release 20 meq PO DAILY Patient Comments: MAYBE 10 MEQ? albuterol sulfate 1 PUFF inhaler 2 puff inhalation Q6H PRN PRN (Reason: Sob &/Or Wheezing) losartan 50 mg tablet 50 mg PO DAILY Patient Comments: TAKE 1 TABLET BY MOUTH EVERY DAY omeprazole 40 mg capsule,delayed release(DR/EC) 40 mg PO DAILY Patient Comments: TAKE 1 CAPSULE BY MOUTH EVERY DAY pramipexole 0.125 mg tablet 0.125 mg PO QHS Patient Comments: TAKE 1-2 TABLETS BY MOUTH DAILY AT BEDTIME. loperamide [Anti-Diarrheal (loperamide)] 2 mg capsule 10 mg PO DAILY PRN (Reason: DIARRHEA) Novolin 70/30 U-100 Insulin 100 unit/mL (70-30) suspension 14 unit SUBCUT QHS Primary Care Provider: Becca Jacobs NP Referrals: Becca Jacobs NP, ASSISTANT PROFESSOR OF SPANISH[employer] [Primary Care Provider] - Disposition Disposition: Acute Care Hospital Discharge Location: [facility]
[2023-12-01 15:53] LABS: AST(SGOT) 31 U/L (15-37); Alanine Aminotransfer ALT/SGPT 22 U/L (13-56); Albumin, Serum 3.4 g/dL (3.2-5.0); Alkaline Phosphatase 82 U/L (45-117); Anion Gap 1 (5-15); BUN 36 mg/dL (7-18); BUN/Creat Ratio 27.3 RATIO (10-20); Bilirubin, Direct 0.33 mg/dL (0.00-0.30); Calcium,Total 8.7 mg/dL (8.5-10.1); Chloride 111 mmol/L (98-107); Creatinine, Serum 1.32 mg/dL (0.55-1.02); EST Glomerular Filtration Rate 41 mL/min (>60); Est Glom Filt Rate - Afr Amer 49 mL/min (>60); Globulin 3.1 g/dL (2.2-4.2); Glucose 155 mg/dL (74-106); Potassium 5.5 mmol/L (3.5-5.1); Protein, Total 6.5 g/dL (6.4-8.2); Sodium Level 140 mmol/L (136-145); Troponin-I HS 13 pg/mL (3.0-54.0)
[2023-12-01] MEDS: 0.9% Saline Lock 10 ML Syringe IV (15:55)
[2023-12-01] MEDS: TENECTEPLASE 3441.59999999999991 MG IV (15:55)
[2023-12-01 15:58] LABS: Color, Urine Yellow (Yellow); Glucose, Dipstick Normal (Normal); Ketone-Dipstick 5 mg/dl (Negative); Leukocyte Esterase-Dipstick 100 /ul (Negative); Mucous, Urine 0 SEEN /hpf (<or=2+); Nitrite-Dipstick Positive (Negative); Occult Blood-Urine 25 /ul (Negative); Protein-Dipstick 30 mg/dl (Negative); Red Blood Cells-Urine 0 SEEN /hpf (0-5); Squamous Epithelial Cells - UA 0 SEEN /hpf (5-10); Urine Bilirubin Dipstick 1 mg/dL (Negative); Urine Clarity Sl. Cloudy (Clear); Urine Urobilinogen 1 mg/dl (Normal)
[2023-12-01] MEDS: levETIRAcetam IV 500 MG in 0.9% Normal Saline (100mL Bag) 100 ML 400 MG IV (15:58)
[2023-12-01] MEDS: 0.9% Normal Saline (1000mL) 1,000 ML 150 ML IV (16:03)
--- NOTE | 2023-12-01 16:08 | NURSING ---
CALLED [facility], ETA IS 60 MIN
[2023-12-01 16:16] LABS: Bacteria 2+ /hpf (None Seen); White Blood Cells 10-25 SEEN /hpf (0-5)
[2023-12-01] MEDS: levETIRAcetam IV 1,000 MG/100 ML BAG 400 MG IV (16:16)
--- NOTE | 2023-12-01 16:24 | RAD_ITS ---
EXAM: XR CHEST, 1 VIEW CLINICAL INDICATION: Neuro deficit, acute, stroke suspected TECHNIQUE: Frontal view of the chest. COMPARISON: 11/06/2023 FINDINGS: LUNGS AND PLEURAL SPACES: Right middle and/or lower lobe pulmonary opacity which may be atelectasis or pneumonia. No pneumothorax. No effusion. HEART: Cardiomegaly and/or pericardial effusion. MEDIASTINUM: Central airways and mediastinal contour are unremarkable. BONES/JOINTS: Degenerative changes in the spine and shoulders. No acute fracture. SOFT TISSUES: No significant abnormality. RAD/Chest 1 View IMPRESSION: 1. Cardiomegaly and/or pericardial effusion. 2. Right middle and/or lower lobe pulmonary opacity which may be atelectasis or pneumonia. Electronically Signed: Palomo Garcia DO at 17:03 EST ,
[2023-12-01] MEDS: Ceftriaxone 1 GM/50 ML BAG IV (16:45)
== END 2023-12-01 17:23 | disposition short-term general hospital (02) ==
PROVIDERS: Emergency Provider Emergency Medicine; PCP Registered Nurse; Visit Provider Emergency Medicine
DX: I63.9 Cerebral infarction, unspecified (principal); I11.0 Hypertensive heart disease with heart failure; I50.9 Heart failure, unspecified; I48.20 Chronic atrial fibrillation, unspecified; G40.209 Localization-related (focal) (partial) symptomatic epilepsy and epileptic syndromes with complex partial seizures, not intractable, without status epilepticus; E78.5 Hyperlipidemia, unspecified; N39.0 Urinary tract infection, site not specified; K21.9 Gastro-esophageal reflux disease without esophagitis; I25.2 Old myocardial infarction; I25.10 Atherosclerotic heart disease of native coronary artery without angina pectoris
CPT/HCPCS: 51702; 70450; 70496; 70498; 71045; 80048; 80076; 81001; 84484; 85025; 85610; 85730; 87040; 87077; 87086; 87088; 87186; 93005; 96365; 96367; 96375; 99285; J3101; Q9967; A4216

== ENCOUNTER 2023-12-05 15:33 | Inpatient (IN) | payer MEDICARE, OTHER, SELFPAY ==
[2023-12-05 16:33] VITALS: BMI 30.6
[2023-12-05 16:39] VITALS: BP 124/70; PULSE 87; RESP 17; TEMP 37; O2SAT 95
[2023-12-05 17:05] VITALS: O2SAT 92
[2023-12-05] MEDS: Calcium (Elemental) 500 MG Tablet PO (18:20)
[2023-12-05] MEDS: metFORMIN HCl 1,000 MG Tablet 1000 MG PO (18:20)
[2023-12-05 20:00] VITALS: BP 124/70; PULSE 87; RESP 17; TEMP 37; O2SAT 95
[2023-12-05] MEDS: Insulin Human 75/25 Kwickpen 14 UNIT SC (21:01)
[2023-12-05] MEDS: Carvedilol 12.5 MG Tablet PO (21:02)
[2023-12-05] MEDS: Atorvastatin Calcium 20 MG Tablet PO (21:03)
[2023-12-05] MEDS: Pramipexole Di-HCl 0.125 MG Tablet PO (21:03)
[2023-12-05] MEDS: APIXABAN 5 MG TABLET PO (21:03)
[2023-12-05] MEDS: Nystatin Powder 15gm Bottle 1 APPLIC TOPICAL (21:06)
[2023-12-05] MEDS: Menthol/Lanolin/Calamine/Znox 113 GM Tube 1 APPLIC TOPICAL (21:06)
[2023-12-05 21:12] LABS: Bedside Glucose 148 mg/dL (74-106)
[2023-12-05 22:01] LABS: Bedside Glucose 172 mg/dL (74-106)
[2023-12-06] MEDS: Acetaminophen 325 MG Tablet 650 MG PO (00:18)
[2023-12-06] MEDS: Menthol/Lanolin/Calamine/Znox 113 GM Tube 1 APPLIC TOPICAL ×2 (03:56→21:22)
[2023-12-06] MEDS: Nystatin Powder 15gm Bottle 1 APPLIC TOPICAL ×2 (03:56→21:20)
[2023-12-06] MEDS: Levothyroxine 75 MCG Tablet PO (05:55)
[2023-12-06 05:58] LABS: Absolute Lymphocyte Count 1.19 X10^3/uL (0.83-4.51); Absolute Neutrophil Count 6.1 X10^3/uL (2.0-7.7); Basophil# 0.05 X10^3/uL; Basophil% 0.6 % (0-1); Eosinophil# 0.23 X10^3/uL; Eosinophils% 2.7 % (0-5); Hematocrit 41.4 % (37-47); Hemoglobin 12.4 g/dL (12.0-15.0); Lymphocyte # 1.19 X10^3/ul (0.83-4.51); Lymphocyte % 13.8 % (19-41); Mean Corpuscular Hgb 26.3 pg (27.0-32.0); Mean Corpuscular Volume 87.7 fL (81-99); Mean Platelet Vol. 11.1 fl (6.2-12.0); Monocyte# 1.04 X10^3/uL; NRBC Flagged by Analyzer 0 % (0-5); Neutrophil # 6.09 X10^3/uL (2.7-7.7); Neutrophil % 70.4 % (47-70); Platelet Count 212 K/mm3 (150-450); RBC Distribution Width CV 14.1 % (11.6-14.6); RBC Distribution Width SD 45.1 fl (35.1-43.9); Red Blood Count 4.72 M/mm3 (4.2-5.4); White Blood Count 8.6 K/mm3 (4.4-11.0)
[2023-12-06 06:07] LABS: Bedside Glucose 120 mg/dL (74-106)
[2023-12-06 06:34] LABS: Anion Gap 2 (5-15); BUN 26 mg/dL (7-18); BUN/Creat Ratio 21.7 RATIO (10-20); Calcium,Total 8.8 mg/dL (8.5-10.1); Chloride 102 mmol/L (98-107); EST Glomerular Filtration Rate 45 mL/min (>60); Est Glom Filt Rate - Afr Amer 55 mL/min (>60); Estimated Creatinine Clearance 38.46 ml/min; Glucose 136 mg/dL (74-106); Magnesium 1.7 mg/dL (1.6-2.6); Phosphorus 3.6 mg/dL (2.5-4.9); Potassium 3.9 mmol/L (3.5-5.1); Sodium Level 138 mmol/L (136-145)
[2023-12-06 07:03] VITALS: BP 119/80; PULSE 92; RESP 18; TEMP 36.4; O2SAT 94
[2023-12-06 08:15] VITALS: O2SAT 96
[2023-12-06] MEDS: Meloxicam 15 MG Tablet PO (08:56)
[2023-12-06] MEDS: Calcium (Elemental) 500 MG Tablet PO ×2 (08:57→17:32)
[2023-12-06] MEDS: Pioglitazone Hydrochloride 45 MG Tablet PO (08:57)
[2023-12-06] MEDS: Carvedilol 12.5 MG Tablet PO ×2 (08:57→21:22)
[2023-12-06] MEDS: Pantoprazole Sodium 20 MG Tablet PO (08:57)
[2023-12-06] MEDS: APIXABAN 5 MG TABLET PO ×2 (08:57→21:18)
[2023-12-06] MEDS: metFORMIN HCl 1,000 MG Tablet 1000 MG PO ×2 (08:57→17:32)
[2023-12-06] MEDS: DULoxetine Hcl 30 MG Capsule PO (08:57)
[2023-12-06] MEDS: Ferrous Sulfate 325 MG Tablet PO (08:59)
[2023-12-06 11:38] LABS: Bedside Glucose 162 mg/dL (74-106)
[2023-12-06 17:24] LABS: Bedside Glucose 146 mg/dL (74-106)
--- NOTE | 2023-12-06 17:57 | EX.PCM.HP.RE ---
HPI - General General Date of Admission: 12/05/23 Date of Service: 12/06/23 Chief Complaint: Post stroke debility HPI Narrative DILIA MCKEON, is a 88 YO F with a PMH of nonischemic cardiomyopathy, hypothyroidism, restless leg syndrome, diabetes mellitus type 2, pulmonary hypertension, GERD, hypertension, hyperlipidemia, NSTEMI, osteoarthritis, atrial fibrillation (not on anticoagulation) and obesity who presented to the emergency department at [facility] on 12/01/2023 as a prehospital stroke alert by EMS. EMS was summoned when she was noticed not to be moving the left side of her body and not talking. EMS noted seizure-like activity with clenching of her left face and her left lower extremity shaking for approximately 10 minutes. She was given 1 mg of Ativan upon arrival in the ED. Noncontrast CT brain showed no evidence of acute stroke or hemorrhage. The aspects score was 10/10. CTA of the head and neck showed a negative CTA head and calcified plaque in both carotid bulbs but no significant stenosis or occlusion. The vertebral arteries were normal bilaterally. Teleneurology was consulted and recommended loading with Keppra 1500 mg for seizures, administering TNK and transferring to the [facility] emergency room as a stroke alert. Upon arrival at [facility] her NIH was 3. CT head showed no hemorrhage or large territory infarct. She was admitted to the neurovascular service. EEG showed no epileptiform activity. MRI of the brain showed no acute abnormality. ASA, Lovenox and Keppra were discontinued. She was started on Eliquis for AF. Transthoracic echocardiogram showed a 60% ejection fraction with mild mitral regurgitation and no PFO, thrombus or wall motion abnormality. The atria were of normal size. EKG showed A-fib with PVCs. LDL was 27, HDL was low at 28, triglycerides were 72 and her hemoglobin A1c was 6.8. She was started on atorvastatin 20 mg daily (she had been taking simvastatin at home). While at [facility] she was seen by PT/OT/ST and acute inpatient rehab was recommended. She was transferred to the acute inpatient rehab unit at [facility] on 12/05/2023 for 3 hours of therapy daily to restore function/independence at or near her level prior to the recent hospital admission. A urine culture had been done at [facility] prior to transfer to [facility] and was positive for E. coli. The patient received ceftriaxone 1 g daily for 5 days while at [facility]. Ceftriaxone concluded on 12/05/2023. The DC from [facility] did not say she had a stroke. The diagnosis was given as seizure likely due to UTI lowering seizure threshold. BUT, she has persistent L faial droop and left side weakness and she has cognitive dysfunction. All lab drawn this morning was personally viewed. Potassium is 3.9 and the sodium is normal at 138. Serum bicarb is elevated at 34 and the BUN was 26 with a creatinine of 1.20. BUN has been elevated every time she has had lab work at [facility] for several years. Creatinine over the past year has ranged from 1.2 to 1.26. Creatinine clearance is 38 and GFR is 45 which is consistent with stage III chronic renal failure. Magnesium is borderline low at 1.7M with a history of paroxysmal atrial fibrillation would like to see this closer to 2. The last echocardiogram she had at [facility] was in 2019 and at that time the left atrium was said to be moderately enlarged. She had mild to moderate mitral insufficiency and mild to moderate tricuspid regurgitation. Pulmonary artery systolic pressure was estimated to be 42 which is considered consistent with mild pulmonary hypertension. EF was 47% at that time and she had stage II diastolic dysfunction. The ECHO has improved since she has been on medication. [facility] Medical History (Updated 12/07/23 @ 16:[address] Dilia Fields DO) Acute respiratory failure Asthma Atherosclerosis of coronary artery of [place] heart without angina pectoris Chronic congestive heart failure Depression Essential (primary) hypertension GERD (gastroesophageal reflux disease) Hiatal hernia Hip fracture Hyperlipidemia Hypothyroidism Iron deficiency anemia Neuropathic pain Non-rheumatic tricuspid valve insufficiency Non-ST elevation (NSTEMI) myocardial infarction Nonischemic cardiomyopathy Nonrheumatic mitral (valve) insufficiency Obesity (BMI 30.0-34.9) Osteoarthritis PVC's (premature ventricular contractions) PVT (paroxysmal ventricular tachycardia) Restless leg syndrome Secondary pulmonary arterial hypertension Type 2 diabetes mellitus Home Medications levothyroxine 75 mcg tablet 75 mcg PO DAILY THYROID 11/12/13 [History Last Taken 12/05/23] simvastatin 40 mg tablet 40 mg PO QHS CHOLESTEROL 11/12/13 [History Last Taken 12/04/23] cyclobenzaprine 10 mg tablet 10 mg PO TID PRN MUSCLE SPASMS 11/06/17 [History Last Taken Unknown] albuterol sulfate 90 mcg/actuation aerosol inhaler 2 puff inhalation Q6H PRN PRN Sob &/Or Wheezing 12/04/17 [History Last Taken Unknown] potassium chloride 10 mEq tablet,extended release 20 meq PO DAILY SUPPLEMENT 12/04/17 [History Last Taken Unknown] meloxicam 15 mg tablet 15 mg PO DAILY anti-inflammatory 90 days ##90 06/26/18 [History Last Taken 12/05/23] melatonin 10 mg capsule 10 mg PO HS PRN Insomnia 01/14/19 [History Last Taken Unknown] carvedilol 12.5 mg tablet (Coreg) 12.5 mg PO BID blood pressure 07/17/19 [History Last Taken 12/05/23] loperamide 2 mg capsule (Anti-Diarrheal (loperamide)) 10 mg PO DAILY PRN DIARRHEA 11/06/23 [History Last Taken Unknown] omeprazole 40 mg capsule,delayed release 40 mg PO DAILY GERD 11/06/23 [History Last Taken Unknown] pramipexole 0.125 mg tablet 0.125 mg PO QHS MUSCLE CRAMPING 11/06/23 [History Last Taken 12/04/23] dulaglutide 0.75 mg/0.5 mL subcutaneous pen injector (Trulicity) 0.75 mg subcut QWEEK glucose 11/12/23 [History Last Taken 12/03/23] estradiol 0.01% (0.1 mg/gram) vaginal cream 1 g vaginal 2XW estrogen 11/12/23 [History Last Taken Unknown] ferrous sulfate 325 mg (65 mg iron) tablet 325 mg PO DAILY supplement 11/12/23 [History Last Taken Unknown] furosemide 20 mg tablet 20 mg PO QDAY PRN SWELLING 11/12/23 [History Last Taken 12/05/23] insulin human U-100 NPH-regulr 70-30 mix 100 unit/mL subcutaneous susp (Novolin 70/30 U-100 Insulin) 14 unit subcut QHS glucose 11/12/23 [History Last Taken Unknown] apixaban 5 mg tablet 5 mg PO BID blood thinner 12/05/23 [History Last Taken 12/05/23] calcium carbonate 600 mg calcium (1,500 mg) tablet 600 mg PO BID supplement 12/05/23 [History Last Taken Unknown] duloxetine 30 mg capsule,delayed release (Cymbalta) 30 mg PO DAILY depression 12/05/23 [History Last Taken Unknown] metformin 1,000 mg tablet 1,000 mg PO BID glucose 12/05/23 [History Last Taken Unknown] multivitamin (Daily Multi-Vitamin tablet) 1 tab PO DAILY supplement 12/05/23 [History Last Taken Unknown] omega 4-akk-zky-fish oil 300 mg-1,000 mg capsule (Fish Oil) 1 cap PO BID supplement 12/05/23 [History Last Taken Unknown] pioglitazone 45 mg tablet (Actos) 45 mg PO DAILY glucose 12/05/23 [History Last Taken Unknown] valsartan 160 mg tablet (Diovan) 160 mg PO BID BP 12/05/23 [History Last Taken Unknown] vitamin B complex (B Complex-Vitamin B12 tablet) 1 tab PO DAILY supplement 12/05/23 [History Last Taken Unknown] Allergy/AdvReac Type Severity Reaction Status Date / Time No Known Allergies Allergy Verified 11/06/23 16:32 Family History Sister Asthma Colon cancer Diabetes Brother Cancer Throat cancer Father Prostate cancer Daughter Myocardial infarction Surgical History (Updated 12/07/23 @ 15:[address] Dilia Fields DO) History of cataract extraction with lens replacement History of left heart catheterization (LHC) (02/14/17) History of right hip replacement 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) Social History (Updated 12/07/23 @ 15:[address] Dilia Fields DO) household members: none housing: other details: Lives in a duplex number of children: 2 current occupational status: retired pets and animals: Yes (She has a black poodle named Mary Jane) pets and animals: dog(s) leisure activities: other history of recent travel: No Smoking Status: Never smoker alcohol intake: never diet: diabetic what type of physical activity do you participate in: none seatbelt use: always ROS Review of Systems ROS Unobtainable: other Details: She is unsure about her hx on some things and has some cognitive dysfunction. Constitutional Constitutional: Reports fatigue and weakness Eyes Eyes: Denies change in vision, double vision, irritation or itchy eyes ENT HEENT: Denies dysphagia or loss taste/smell Cardiovascular Cardiovascular: Reports edema; Denies chest pain or orthopnea Respiratory/Chest Respiratory/Chest: Reports shortness of breath with exertion; Denies cough Gastrointestinal Gastrointestinal: Denies abdominal pain, constipation, diarrhea, nausea or vomiting Genitourinary Genitourinary: Reports nocturia; Denies dysuria Musculoskeletal Musculoskeletal: Reports other Details: CO pain in both LE's with any pressure over the anterior tibia. No calf pain. Denies pain in the knee or the ankle. Integumentary Integumentary: Reports dry skin; Denies jaundice, pruritus, rash or wounds Neurologic Neurologic: Reports confusion, focal weakness, lack of coordination, tremor(s) and weakness; Denies dizziness Psychiatric Psychiatric: Reports depression; Denies suicidal ideation Endocrine Endocrinology: Denies polydipsia or polyuria Hematologic/Lymphatic Hematologic/Lymphatic: Reports easy bruising Vital Signs Vital Signs Vital Signs: 12/05/23 20:00 12/06/23 07:03 12/06/23 08:15 Temperature 98.6 F 97.5 F L Temperature Source Oral Temporal Pulse Rate 87 92 Pulse Strength Respiratory Rate 17 18 Blood Pressure 124/70 H 119/80 Blood Pressure Mean 88 93 Blood Pressure Source Monitor Monitor Blood Pressure Position Sitting Sitting Blood Pressure Location Right Arm Left Arm Pulse Ox 95 94 96 Oxygen Delivery Method Room Air Room Air Room Air 12/06/23 10:00 Temperature Temperature Source Pulse Rate Pulse Strength Normal (2+) Respiratory Rate Blood Pressure Blood Pressure Mean Blood Pressure Source Blood Pressure Position Blood Pressure Location Pulse Ox Oxygen Delivery Method Weight Weight: 195 lb 5.273 oz Body Mass Index (BMI) 30.6 Indicators for Scoring Admitted with or Primary Diagnosis of CVA/Stroke: Yes Hx of CVA/Stroke: No Modified Robertson Score MRS Score at time of Evaluation: 4-Moderate/severe disability NIHSS NIHSS 1a. Level of Consciousness: Alert; keenly responsive 1b. LOC Questions: Answers BOTH questions correctly. 1c. LOC Commands: Performs both tasks correctly. 2. Best Gaze: Normal 3. Visual: No visual loss 4. Facial Palsy: Minor paralysis (flattened nasolabial fold, asymmetry on smiling) (when she smiles I can not see as many teeth on the L side. When her face is relaxed the corner of the R mouth droops) 5a. Left Arm: Drift; arm drifts downward but doesn?t hit the bed 5b. Right Arm: No drift; arm holds 90 (or 45) degrees for full 10 seconds 6a. Left Leg: Drift; leg falls by the end of 5-seconds, but does not hit bed 6b. Right Leg: No drift; leg holds 30-degree position for full 5 seconds 7. Limb Ataxia: Absent 8. Sensory: Normal; no sensory loss 9. Best Language: No aphasia; normal 10. Dysarthria: Ivac-hq-[id number] dysarthria; Total: 4 Stroke Questions Stroke Team Activated: No Physical Exam Const alert and no apparent distress Constitutional Narrative: Looks very fatigued. flat affect and minimal facial expression. Makes eye contact with me most of the time. General Appearance: cooperative Orientation / Consciousness: confused HEENT head/scalp atraumatic Mouth: dry mucous membranes Eyes PERRL and EOMs intact bilaterally Neck supple, no JVD, No nodes and no carotid bruits General: trachea midline Resp normal respiratory effort, normal air movement and clear to auscultation bilaterally Effort and Inspection: Negative for tachypneic Cardio no murmurs, no rub and no gallops Cardio Narrative: irreg irreg rhythm. resting HR is mildly increased. GI soft to palpation and non-tender GI Narrative: Bowel sounds are hypoactive. No guarding with palpation. Mildly tympanic. No abdominal bruits. Extremity no calf tenderness Extremity Narrative: The fingers on both hands are warm. She has pain over both shins with more than just very light touch. No pain in the knees or the ankles. Pedal pulses are diminished BL. Arterial studies in 2019 were normal. Venous US in 2020 and 2018 are negative for clot in the RLE General Extremity: Negative for clubbing or edema Skin no wounds, no jaundice and no mottling General Skin Exam: no breakdown Rashes: no rashes Neuro Neuro Narrative: + facial droop on the left and mild left side weakness. Very little expression/masked facies? No cogwheel rigidity. Has had trouble with her balance for a few years and always uses a WW to ambulate. No ataxia with finger-nose or heel-kirby. No extinction. Intact sensation. Decreased blink. D/W ST....... informal cognitive?linguistic assessment completed in conjunction with [facility] and the B CAT score was 27/50 indicating significant cognitive impairment. She had mild dysarthria with reduction in vocal intensity and quality. There were mild word retrieval deficits. Psych cooperative Appearance: appropriate Attitude: calm Activity / Motor Behavior: appropriate eye contact and psychomotor slowing; Negative for fidgetting or restless Speech: slow Mood & Affect: depressed and flat affect Thought Content: No suicidality and No hallucination(s) Attention / Concentration: attention grossly intact Memory / Cognition: memory grossly impaired and cognition impaired Results Lab / Micro Data 12/06/23 05:35 12/06/23 05:35 Labs: Laboratory Results - last 24 hr 12/05/23 16:54: POC Glucose 148 H 12/05/23 21:00: POC Glucose 172 H 12/06/23 05:35: WBC 8.6, RBC 4.72, Hgb 12.4, Hct 41.4, MCV 87.7, MCH 26.3 L, MCHC 30.0 L, RDW Std Deviation 45.1 H, RDW Coeff of Bhupinder 14.1, Plt Count 212, MPV 11.1, Immature Gran % (Auto) 0.500, Neut % (Auto) 70.4 H, Lymph % (Auto) 13.8 L, Cecil % (Auto) 12.0 H, Eos % (Auto) 2.7, Baso % (Auto) 0.6, Absolute Neuts (auto) 6.1, Absolute Lymphs (auto) 1.19, Nucleated RBC % 0, Sodium 138, Potassium 3.9, Chloride 102, Carbon Dioxide 34.0 H, Anion Gap 2 L, BUN 26 H, Creatinine 1.20 H, Estim Creat Clear Calc 38.46, Est GFR (MDRD) Af Amer 55 L, Est GFR (MDRD) Non-Af 45 L, BUN/Creatinine Ratio 21.7 H, Glucose 136 H, Calcium 8.8, Phosphorus 3.6, Magnesium 1.7 12/06/23 05:49: POC Glucose 120 H 12/06/23 11:20: POC Glucose 162 H 12/06/23 17:06: POC Glucose 146 H Assessment & Plan Assessment/Plan (1) Debility: (2) Acute stroke due to ischemia: (3) Complex partial seizure: (4) Acute UTI: (5) Facial droop as late effect of cerebrovascular accident (CVA): (6) Cognitive dysfunction: (7) Metabolic alkalosis with respiratory acidosis: (8) Dehydration: (9) Acute left-sided weakness: (10) Type 2 diabetes mellitus: QUALIFIERS: Diabetes mellitus complication status: with neurologic complications Diabetes mellitus prison insulin use: with prison use (11) Hypothyroidism: QUALIFIERS: Hypothyroidism type: acquired Qualified Code(s): E03.9 - Hypothyroidism, unspecified (12) Depression: QUALIFIERS: Depression Type: unspecified Qualified Code(s): F32.A - Depression, unspecified (13) Atrial fibrillation, chronic: (14) Restless leg syndrome: (15) Hiatal hernia: (16) Chronic congestive heart failure: QUALIFIERS: Heart failure type: combined systolic and diastolic Qualified Code(s): I50.42 - Chronic combined systolic (congestive) and diastolic (congestive) heart failure (17) Secondary pulmonary arterial hypertension: (18) Non-rheumatic tricuspid valve insufficiency: (19) Nonischemic cardiomyopathy: (20) Essential (primary) hypertension: (21) PVC's (premature ventricular contractions): (22) Nonrheumatic mitral (valve) insufficiency: (23) Hyperlipidemia: QUALIFIERS: Hyperlipidemia type: pure hypercholesterolemia Qualified Code(s): E78.00 - Pure hypercholesterolemia, unspecified; E78.0 - Pure hypercholesterolemia (24) PVT (paroxysmal ventricular tachycardia): (25) Obesity (BMI 30.0-34.9): (26) BALJEET (obstructive sleep apnea): PLAN: Plan PLAN PT for gait stability OT for ADL's ST for evaluation Analgesics as needed Bowel protocol Fall precautions Assess for Anxiety/Depression GI prophylaxis -very denies heartburn, nausea, epigastric pain at this time and she is not on a PPI or an H2 cesar She does have a history of hiatal hernia so if she starts c/o heartburn will likely add a PPI. DVT prophylaxis -continue apixaban 5 mg p.o. twice daily for atrial fibrillation. Follow up with neurology, PCP and cardiology following DC from [facility] AM lab including CMP, CBC, Mag and Phos -all personally reviewed Start an oral magnesium supplement and keep the magnesium at approximately 2. Recheck potassium in a few days and keep potassium between 4 and 4.5 given history of atrial fibrillation. Check an overnight trending pulse ox in light of pulmonary hypertension in the past and paroxysmal atrial fibrillation with normal size atria per [facility] TTE. STOP BANG score is 4 for HTN, AGE > 50, feeling tired during the day and snoring. Neck circumference is 38 cm. Neither Dilia nor her dtr know if she stops breathing while sleeping. She has and is being treated for RLS. She has AF and has had a stroke. She is being treated for depression. Has trouble sleeping and does not feel rested in the AM. She has nocturia. She has pulmonary hypertension. Dilia sets up her pill box for a month at a time with no assistance. She tells me that she takes medication twice a day but, she puts all her pills in the same bin and takes them out as she needs to. She tells me that she never misses her medications but, she told the ST she sometimes goes to get her pills in the morning and notices the pills from the previous day are still in the box. This concerns me greatly because she has significant cognitive dysfunction and I suspect she is not taking her medications correctly. She is on a few medications that can cause confusion in the elderly. She had been taking Prozac for years at home and she was switched to Cymbalta while at [facility]. Apply Oxygen at night. Eliminate Melatonin 10 mg at HS. Assess sleeping over the next few days. She had O2 on last night when the pulse ox dropped and nursing told me she slept well. Charges/Coding Visit Charges Inpatient E&M: 73919 Init Hosp L3
[2023-12-06 19:19] VITALS: BP 136/85; PULSE 108; RESP 16; TEMP 36.7; O2SAT 94
[2023-12-06 20:22] LABS: Allen Test Positive; Base Excess 10 mmol/L (-2 to +2); Bicarbonate 33.4 mmol/L (22-26); Blood Gas Specimen Type ART; Mode Not entered; O2 Delivery Device Room Air; PO2 68 mmHG (75-100); SITE R Radial; SO2 94 % (95-99); Total Carbon Dioxide 35 mmol/L; pCO2 47.3 mmHg (35-45); pH 7.46 (7.35-7.45)
[2023-12-06 21:05] VITALS: PULSE 99; RESP 16; O2SAT 94
[2023-12-06] MEDS: Insulin Human 75/25 Kwickpen 14 UNIT SC (21:18)
[2023-12-06] MEDS: Losartan Potassium 50 MG Tablet PO (21:18)
[2023-12-06] MEDS: Atorvastatin Calcium 20 MG Tablet PO (21:19)
[2023-12-06] MEDS: Magnesium Chloride 64 MG Delay Rel.Tablet 128 MG PO (21:19)
[2023-12-06] MEDS: Pramipexole Di-HCl 0.125 MG Tablet PO (21:20)
[2023-12-06 21:51] LABS: Bedside Glucose 138 mg/dL (74-106)
[2023-12-06 21:53] VITALS: PULSE 92; O2SAT 94
[2023-12-07] MEDS: Levothyroxine 75 MCG Tablet PO (06:19)
[2023-12-07] MEDS: Nystatin Powder 15gm Bottle 1 APPLIC TOPICAL ×2 (06:38→21:23)
[2023-12-07] MEDS: Menthol/Lanolin/Calamine/Znox 113 GM Tube 1 APPLIC TOPICAL ×2 (06:38→21:16)
[2023-12-07 07:09] LABS: Bedside Glucose 76 mg/dL (74-106)
[2023-12-07 07:23] VITALS: BP 120/82; PULSE 88; RESP 16; TEMP 36.8; O2SAT 92
[2023-12-07] MEDS: Calcium (Elemental) 500 MG Tablet PO ×2 (08:20→17:14)
[2023-12-07] MEDS: Ferrous Sulfate 325 MG Tablet PO (08:20)
[2023-12-07] MEDS: Losartan Potassium 50 MG Tablet PO ×2 (08:20→21:17)
[2023-12-07] MEDS: Magnesium Chloride 64 MG Delay Rel.Tablet 128 MG PO ×2 (08:20→21:17)
[2023-12-07] MEDS: metFORMIN HCl 1,000 MG Tablet 1000 MG PO ×2 (08:20→17:14)
[2023-12-07] MEDS: Carvedilol 12.5 MG Tablet PO ×2 (08:20→21:16)
[2023-12-07] MEDS: Meloxicam 15 MG Tablet PO (08:21)
[2023-12-07] MEDS: APIXABAN 5 MG TABLET PO ×2 (08:21→21:17)
[2023-12-07] MEDS: Pantoprazole Sodium 20 MG Tablet PO (08:21)
[2023-12-07] MEDS: Senna/Docusate Sodium 1 Tablet 2 TABLET PO (08:21)
[2023-12-07] MEDS: DULoxetine Hcl 30 MG Capsule PO (08:21)
[2023-12-07] MEDS: Pioglitazone Hydrochloride 45 MG Tablet PO (08:21)
--- NOTE | 2023-12-07 11:31 | PCM.RU.PYE ---
Admission Information Primary Diagnosis:: Post stroke debility Status Changes from Prescreening?: No changes Identified Actual Problem List:: Skin Intergrity, Pain, ALteration in Cmfrt, Cognitve Impr/Memory Loss, Depression, Mobility Impaired, Self Care Deficit, Know.Dfct/Disease Process, Know.Dfct of Medicaitons and Fluid Change-Dehydration Potential Problem List:: DVT, Bleeding, Infection, UTI, Aspiration, Falls, Skin Integrity and Depression Risk of Complications DVT: CAMPBELL Hernandez and - (Continue apixaban 5 mg p.o. twice daily for paroxysmal atrial fibrillation.) Bleeding: Monitor Lab Values, Nursing to Teach Precautions for anti-coagulation therapy., Wound, if applicable, to be assessed every shift. and Stroke patients assessed for lethargy or change in status. Infection: Clinical Staff to Monitor for S/S of infection: and S/S of infection include fever, redness, warmth, etc. Urinary Tract Infection: Monitor for frequency, burning, discomfort, or incontinence. and Nursing will obtain urine sample for urinalysis and C&S when ordered. Aspiration: Clinical staff will monitor for coughing, drooling, congestion., Speech will evaluate swallowing and dsyphasia. and Nursing will monitor patient swallowing during meals. Falls: Patient will be evaluated for Fall Precautions and Patient will be placed on Fall Precautions as indicated per protocol. Skin Breakdown: Nursing will assess skin daily using assessment tool. and Nursing will place on Skin Breakdown Precautions as indicated. Pain: Clinical staff will assess patient's pain level per protocol., Medications will be given, if needed, and the pain level reassessed. and Other methods: Massage, distraction, decrease stimulus, etc. used PRN. Plan of Care Patient requires physician specializing in physical medicine and rehab oversight to provide close medical supervision of rehab issues including: Pain Management, Sleep Problems, Bowel and Bladder, Medical and co-morbidity Management, DVT prophylaxis, Rehabilitation Leadership and Coordination of treatment team Patient needs Physical Therapy: For a minimum of 1 hour and At least 5 out of 7 days Patient needs Physical Therapy to improve:: Mobility, Strengthening, Transfers, Stretching, ROM, Endurance, Stairs, Gait and Balance Patient needs Occupational Therapy: For a minimum of 1 hour and At least 5 out of 7 days Patient needs Occupational Therapy to improve ADL's incl.: Eating, Grooming, Bathing, Dressing, Toileting, Toilet transfers, Community Reintegration, Higher functioning activities, Household tasks, Adaptive Equipment, Splinting and Other activities as determined Patient requires speech therapy: For a minimum of 1 hour and At least 5 out of 7 days Patient requires speech therapy for: Swallowing, Cognition, Language Skills and Compensatory Strategies Patient requires 24/7 Rehabilitation Nursing for: Pain Issues, Identifying and preventing risk factors, Monitoring and reporting current medical conditions, Assisting with ambulation, transfer, and all ADL's, Teaching patients about disease process and medications, Family teaching, Providing safe environment, Bowel and Bladder Issues, Skin integrity and Medication Management Patient needs Correctional Supervisor Lieutenant/ Case Management for: Discharge Planning, Arranging Home Equipment or Services and Family Interventions Patient needs Dietary and Nutrition Services for: Adequate Nutrition, Nutritional Supplements and Nutritional Education Goals Goals Patient will remain: free from falls Patient will perform eating at: MOD I level of assist. Patient will perform bed mobility at: MOD I level of assist. Patient will complete transfers from bed to chair at: Standby Assist. Patient will ambulate: - (150 ft with a WW at SHANELLE on various surfaces. ) Patient will complete upper body dressing at: - (Supervision) Patient will complete lower body dressing at: - (Supervision with adaptive equipment as needed for increased independence with self-care) Patient will complete toilet transfer at: - (Supervision) Patient will complete toileting at: - (Supervision) Patient will complete grooming at: - (Supervision while standing at the sink) Patient will achieve: - (1 small curb step with least restrictive device and 1 handrail to allow access to her home at standby assist) Discharge Planning Pt Prognosis for Sig. Practical Improv. w/in Reasonable Time: Good Estimated Length of stay (days): 21 Anticipated D/C Destination: Home w/ family or friends (She plans on going home with her dtr Leslie. ) Was Preadmission Assessment Accurate?: Yes
[2023-12-07 12:24] LABS: Bedside Glucose 98 mg/dL (74-106)
[2023-12-07] MEDS: 0.9% Normal Saline (1000mL) 1,000 ML 75 ML IV (15:34)
[2023-12-07 16:48] LABS: Bedside Glucose 112 mg/dL (74-106)
--- NOTE | 2023-12-07 17:37 | PCM.PROGNOTE ---
Subjective Subjective Afebrile VSS Maintaining appropriate oxygen saturation on RA Oral intake is good. Has taken 75 to 100% of her past 3 meals. Oral fluid intake is poor. The blood sugar record was reviewed. Fasting blood sugar this morning was 76 and the at bedtime blood sugar was 138. Discussed with nursing - no problems that need addressed Reviewed the PT/OT/ST notes Medication list reviewed. Current diabetic medications include Trulicity 0.75 mg weekly, metformin 1000 mg p.o. twice daily, Actos 45 mg p.o. daily and insulin 75/25 14 units nightly. ABG yesterday was consistent with metabolic alkalosis with compensatory respiratory acidosis. IV fluids were started today. She had 3 bowel movements yesterday but there have been none recorded for today. Bowel movements are soft. Still slow to answer questions. Denies cephalgia, vertigo, lightheadedness, chest pain, shortness of breath, cough, nausea/vomiting/abdominal pain, dysuria and calf pain. She is complaining of being tired. Objective Data Objective Data Vital Signs: Vital Signs Temp Pulse Resp BP Pulse Ox O2 Del Method O2 Flow Rate 98.2 F 88 16 120/82 H 92 Room Air 0 12/07/23 07:23 12/07/23 07:23 12/07/23 07:23 12/07/23 07:23 12/07/23 07:23 12/07/23 07:23 12/06/23 21:53 FiO2 21 12/06/23 21:53 Oxygen Flow Rate (L/min) 0 Oxygen Delivery Method Room Air Weight: 195 lb 5.273 oz Body Mass Index (BMI) 30.6 Intake & Output: Intake and Output for Last 24 Hours 12/05/23 12/06/23 12/07/23 23:59 23:59 23:59 Intake Total 270 / 270 920 / 920 600 / 600 Output Total 550 / 550 1100 / 1100 650 / 650 Balance -280 / -280 -180 / -180 -50 / -50 Lab / Micro Data 12/06/23 05:35 12/08/23 05:11 Labs: Laboratory Results - last 24 hr 12/06/23 21:17: POC Glucose 138 H 12/07/23 06:44: POC Glucose 76 12/07/23 12:02: POC Glucose 98 12/07/23 16:30: POC Glucose 112 H ABG Data ABG results: ABG 12/06/23 20:18 Specimen Type ART Sample Site R Radial pH 7.46 H Bicarbonate Actual 33.4 H Total CO2 35 Base Excess 10 H O2 Saturation 94 L ABG pCO2 47.3 H ABG pO2 68 L Rl Test Positive O2 Delivery Device Room Air Vent Mode Not entered Physical Exam Const alert and no apparent distress Constitutional Narrative: Flat affect General Appearance: cooperative Orientation / Consciousness: confused HEENT Mouth: dry mucous membranes Resp normal respiratory effort and clear to auscultation bilaterally Effort and Inspection: Negative for tachypneic or labored Cardio Cardio Narrative: irreg irreg no gallops resting HR is increased in the 90's GI normal to inspection, nondistended, normoactive bowel sounds, soft to palpation and non-tender GI Narrative: BS's are mildly hypoactive. 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): (5) Cognitive dysfunction: (6) Metabolic alkalosis with respiratory acidosis: (7) Dehydration: (8) Acute left-sided weakness: (9) Type 2 diabetes mellitus: QUALIFIERS: Diabetes mellitus buttermaker continuous churn insulin use: with nursing home use Diabetes mellitus complication status: with circulatory complication Diabetes mellitus complication detail: with other circulatory complications Qualified Code(s): E11.59 - Type 2 diabetes mellitus with other circulatory complications; Z79.4 - [facility] (current) use of insulin (10) Hypothyroidism: QUALIFIERS: Hypothyroidism type: acquired Qualified Code(s): E03.9 - Hypothyroidism, unspecified (11) Depression: QUALIFIERS: Depression Type: unspecified Qualified Code(s): F32.A - Depression, unspecified (12) Atrial fibrillation, chronic: (13) Restless leg syndrome: (14) Chronic congestive heart failure: QUALIFIERS: Heart failure type: combined systolic and diastolic Qualified Code(s): I50.42 - Chronic combined systolic (congestive) and diastolic (congestive) heart failure (15) Secondary pulmonary arterial hypertension: (16) Non-rheumatic tricuspid valve insufficiency: (17) Nonischemic cardiomyopathy: (18) Essential (primary) hypertension: (19) Nonrheumatic mitral (valve) insufficiency: (20) Hyperlipidemia: QUALIFIERS: Hyperlipidemia type: pure hypercholesterolemia Qualified Code(s): E78.00 - Pure hypercholesterolemia, unspecified; E78.0 - Pure hypercholesterolemia (21) PVT (paroxysmal ventricular tachycardia): (22) Obesity (BMI 30.0-34.9): (23) BALJEET (obstructive sleep apnea): PLAN: Plan 1. Continue therapy 2. I had the opportunity to talk with Gabrielle's daughter Leslie today and she was able to tell me that Gabrielle snores when she sleeps. She has also noticed that over the past 6 months Gabrielle's cognition has declined. She agrees that very is depressed. Gabrielle admits to being depressed. Continue the duloxetine 30 mg daily. 3. Melatonin has been discontinued. Cyclobenzaprine is also been discontinued because they both contribute to confusion. 4. The blood sugar was low this morning and she is getting 75/25 insulin at at bedtime? The at bedtime sugar was only 138. Will DC 75/25 insulin and start glargine 8 units at at bedtime. Check a 3 AM BS tonight Continue to monitor the BS's AC and HS. continue the 1800-calorie diet with consistent carbohydrates. May need to decrease the dose of the pioglitazone and/or metformin. 5. Normal saline at 75 cc/h x 2 L and then discontinue. Encouraged her to increase her fluid intake. 6. Since she is taking metformin 1000 mg twice daily and having soft loose stool will change the senna/docusate to 2 tabs twice daily as needed. Adjust as needed. 7. Recheck a BMP in the a.m. and also a T4 and TSH. All changes were discussed with Gabrielle and she is agreeable. Charges/Coding Visit Charges Inpatient E&M: 55433 Subs Hosp L2
[2023-12-07] MEDS: Insulin Glargine-YFGN 100 UNIT/ML Pen 8 UNIT SC (21:15)
[2023-12-07] MEDS: Pramipexole Di-HCl 0.125 MG Tablet PO (21:17)
[2023-12-07] MEDS: Atorvastatin Calcium 20 MG Tablet PO (21:17)
[2023-12-07 21:25] VITALS: BP 145/76; PULSE 79; RESP 17; TEMP 36.7; O2SAT 93
[2023-12-07 21:44] LABS: Bedside Glucose 180 mg/dL (74-106)
[2023-12-07 22:00] VITALS: PULSE 83; RESP 16; O2SAT 94
[2023-12-08 03:17] LABS: Bedside Glucose 129 mg/dL (74-106)
[2023-12-08] MEDS: 0.9% Normal Saline (1000mL) 1,000 ML 75 ML IV (05:38)
[2023-12-08] MEDS: Levothyroxine 75 MCG Tablet PO (05:39)
[2023-12-08] MEDS: Nystatin Powder 15gm Bottle 1 APPLIC TOPICAL ×2 (05:39→21:45)
[2023-12-08] MEDS: Menthol/Lanolin/Calamine/Znox 113 GM Tube 1 APPLIC TOPICAL ×2 (05:42→19:53)
[2023-12-08 05:53] VITALS: BP 143/106; BP 157/94; BP 158/107; PULSE 71; PULSE 78; PULSE 91
[2023-12-08 06:54] LABS: Bedside Glucose 121 mg/dL (74-106)
[2023-12-08 07:00] LABS: Anion Gap 2 (5-15); BUN 26 mg/dL (7-18); BUN/Creat Ratio 24.8 RATIO (10-20); Chloride 109 mmol/L (98-107); Creatinine, Serum 1.05 mg/dL (0.55-1.02); EST Glomerular Filtration Rate 53 mL/min (>60); Est Glom Filt Rate - Afr Amer 64 mL/min (>60); Estimated Creatinine Clearance 43.96 ml/min; Glucose 126 mg/dL (74-106); Potassium 4.4 mmol/L (3.5-5.1); Sodium Level 140 mmol/L (136-145); T4 Free Direct 1.28 ng/dL (0.76-1.46); Thyroid Stim Hormone (TSH) 5.15 uIU/mL (0.358-3.74)
[2023-12-08 08:13] VITALS: BP 138/88; PULSE 83; RESP 15; TEMP 36.7; O2SAT 96
[2023-12-08] MEDS: metFORMIN HCl 1,000 MG Tablet 1000 MG PO ×2 (08:14→16:33)
[2023-12-08] MEDS: Magnesium Chloride 64 MG Delay Rel.Tablet 128 MG PO ×2 (08:15→19:52)
[2023-12-08] MEDS: Calcium (Elemental) 500 MG Tablet PO ×2 (08:15→16:33)
[2023-12-08] MEDS: DULoxetine Hcl 30 MG Capsule PO (08:15)
[2023-12-08] MEDS: Carvedilol 12.5 MG Tablet PO ×2 (08:15→19:52)
[2023-12-08] MEDS: Pantoprazole Sodium 20 MG Tablet PO (08:15)
[2023-12-08] MEDS: Losartan Potassium 50 MG Tablet PO ×2 (08:15→19:53)
[2023-12-08] MEDS: APIXABAN 5 MG TABLET PO ×2 (08:15→19:53)
[2023-12-08] MEDS: Pioglitazone Hydrochloride 45 MG Tablet PO (08:16)
[2023-12-08] MEDS: Meloxicam 15 MG Tablet PO (08:16)
[2023-12-08 11:52] LABS: Bedside Glucose 165 mg/dL (74-106)
[2023-12-08] MEDS: Ferrous Sulfate 325 MG Tablet PO (13:38)
[2023-12-08 16:49] LABS: Bedside Glucose 123 mg/dL (74-106)
[2023-12-08 19:30] VITALS: PULSE 78; RESP 16; O2SAT 96
[2023-12-08] MEDS: Pramipexole Di-HCl 0.125 MG Tablet PO (19:52)
[2023-12-08] MEDS: Atorvastatin Calcium 20 MG Tablet PO (19:52)
[2023-12-08] MEDS: Acetaminophen 325 MG Tablet 650 MG PO (19:56)
[2023-12-08 20:21] VITALS: BP 135/81; PULSE 78; RESP 16; TEMP 36.6; O2SAT 96
[2023-12-08] MEDS: Insulin Glargine-YFGN 100 UNIT/ML Pen 8 UNIT SC (21:44)
[2023-12-08 22:13] LABS: Bedside Glucose 163 mg/dL (74-106)
[2023-12-09] MEDS: Levothyroxine 75 MCG Tablet PO (05:45)
[2023-12-09] MEDS: Menthol/Lanolin/Calamine/Znox 113 GM Tube 1 APPLIC TOPICAL ×2 (05:45→20:04)
[2023-12-09] MEDS: Nystatin Powder 15gm Bottle 1 APPLIC TOPICAL ×2 (05:46→20:04)
[2023-12-09 07:13] LABS: Bedside Glucose 102 mg/dL (74-106)
[2023-12-09] MEDS: Calcium (Elemental) 500 MG Tablet PO ×2 (08:12→15:47)
[2023-12-09] MEDS: Pioglitazone Hydrochloride 45 MG Tablet PO (08:12)
[2023-12-09] MEDS: Losartan Potassium 50 MG Tablet PO ×2 (08:12→20:02)
[2023-12-09] MEDS: Meloxicam 15 MG Tablet PO (08:12)
[2023-12-09] MEDS: Pantoprazole Sodium 20 MG Tablet PO (08:12)
[2023-12-09] MEDS: metFORMIN HCl 1,000 MG Tablet 1000 MG PO ×2 (08:12→15:46)
[2023-12-09] MEDS: Magnesium Chloride 64 MG Delay Rel.Tablet 128 MG PO ×2 (08:12→20:02)
[2023-12-09] MEDS: Ferrous Sulfate 325 MG Tablet PO (08:12)
[2023-12-09] MEDS: APIXABAN 5 MG TABLET PO ×2 (08:12→20:03)
[2023-12-09] MEDS: DULoxetine Hcl 30 MG Capsule PO (08:13)
[2023-12-09] MEDS: Carvedilol 12.5 MG Tablet PO ×2 (08:13→20:02)
[2023-12-09 08:38] VITALS: BP 147/86; PULSE 74; RESP 16; TEMP 36.2; O2SAT 98
[2023-12-09 12:20] LABS: Bedside Glucose 135 mg/dL (74-106)
[2023-12-09 17:05] LABS: Bedside Glucose 146 mg/dL (74-106)
[2023-12-09 19:44] VITALS: BP 113/62; PULSE 81; RESP 16; TEMP 36.2; O2SAT 99
[2023-12-09 20:00] VITALS: PULSE 81; RESP 16; O2SAT 99
[2023-12-09] MEDS: Acetaminophen 325 MG Tablet 650 MG PO (20:00)
[2023-12-09] MEDS: Atorvastatin Calcium 20 MG Tablet PO (20:02)
[2023-12-09] MEDS: Pramipexole Di-HCl 0.125 MG Tablet PO (20:03)
[2023-12-09] MEDS: Arthritis Pain Compound 60 CLICK TUBE TOPICAL (20:16)
[2023-12-09] MEDS: Insulin Glargine-YFGN 100 UNIT/ML Pen 8 UNIT SC (20:31)
[2023-12-09 21:22] LABS: Bedside Glucose 146 mg/dL (74-106)
[2023-12-10] MEDS: Levothyroxine 75 MCG Tablet PO (06:25)
[2023-12-10] MEDS: Menthol/Lanolin/Calamine/Znox 113 GM Tube 1 APPLIC TOPICAL ×2 (06:26→21:01)
[2023-12-10] MEDS: Nystatin Powder 15gm Bottle 1 APPLIC TOPICAL ×2 (06:26→21:04)
[2023-12-10 06:47] VITALS: BMI 31.1
[2023-12-10 07:06] VITALS: BP 144/71; PULSE 81; RESP 16; TEMP 36.2; O2SAT 97
[2023-12-10 07:12] LABS: Bedside Glucose 122 mg/dL (74-106)
[2023-12-10] MEDS: Meloxicam 15 MG Tablet PO (08:32)
[2023-12-10] MEDS: metFORMIN HCl 1,000 MG Tablet 1000 MG PO ×2 (08:32→17:03)
[2023-12-10] MEDS: Losartan Potassium 50 MG Tablet PO ×2 (08:32→21:01)
[2023-12-10] MEDS: Magnesium Chloride 64 MG Delay Rel.Tablet 128 MG PO ×2 (08:33→21:03)
[2023-12-10] MEDS: Pantoprazole Sodium 20 MG Tablet PO (08:33)
[2023-12-10] MEDS: APIXABAN 5 MG TABLET PO ×2 (08:33→21:02)
[2023-12-10] MEDS: CARBOXYMETHYLCELLULOSE SODIUM 1 DRP DROPS OPHTHALMIC (08:34)
[2023-12-10] MEDS: Arthritis Pain Compound 60 CLICK TUBE TOPICAL ×2 (08:34→21:00)
[2023-12-10] MEDS: Pioglitazone Hydrochloride 45 MG Tablet PO (08:35)
[2023-12-10] MEDS: DULoxetine Hcl 30 MG Capsule PO (08:35)
[2023-12-10] MEDS: Carvedilol 12.5 MG Tablet PO ×2 (08:35→21:01)
[2023-12-10] MEDS: Calcium (Elemental) 500 MG Tablet PO ×2 (08:36→17:03)
--- NOTE | 2023-12-10 10:34 | PN_ITS ---
Subjective Subjective Gabrielle was seen on team rounds today. Her daughter Leslie was present in the room for rounds and Leslie sister participated by phone. Afebrile VSS-orthostatics on Sunday were negative. Maintaining appropriate oxygen saturation on RA Oral intake is good for food intake and poor for oral intake....yesterday it was better. Blood sugars are well-controlled with no hypoglycemia. The blood sugar record was reviewed. Last bowel movement was 12/08/2023. Discussed with nursing - no problems that need addressed Reviewed the PT/OT/ST notes Medication list reviewed. TSH was 5.15 but the free T4 is 1.28. Sodium, potassium and calcium are all normal on Sunday. Creatinine was down to 1.05 following hydration. Gabrielle is c/o dry itchy eyes. At home she uses Pataday eyedrops and her daughter Leslie will bring these in. Gabrielle also complains that she is not sleeping well at night. At home she was taking 10 mg of melatonin. this has been a chronic problem. Gabrielle denies headache, lightheadedness, shortness of breath, chest pain, nausea/vomiting/heartburn/abdominal pain, dysuria and calf pain. Objective Data Objective Data Vital Signs: Vital Signs Temp Pulse Resp BP Pulse Ox O2 Del Method O2 Flow Rate 97.2 F L 81 16 144/71 H 97 Room Air 0 12/10/23 07:06 12/10/23 07:06 12/10/23 07:06 12/10/23 07:06 12/10/23 07:06 12/10/23 07:06 12/06/23 21:53 FiO2 21 12/06/23 21:53 Oxygen Flow Rate (L/min) 0 Oxygen Delivery Method Room Air Weight: 198 lb 13.711 oz Body Mass Index (BMI) 31.1 Intake & Output: Intake and Output for Last 24 Hours 12/08/23 12/09/23 12/10/23 23:59 23:59 23:59 Intake Total 2845 / 2845 1700 / 1700 360 / 360 Output Total 650 / 650 750 / 750 450 / 450 Balance 2195 / 2195 950 / 950 -90 / -90 Lab / Micro Data 12/06/23 05:35 12/08/23 05:11 Labs: Laboratory Results - last 24 hr 12/09/23 11:45: POC Glucose 135 H 12/09/23 16:46: POC Glucose 146 H 12/09/23 20:30: POC Glucose 146 H 12/10/23 06:46: POC Glucose 122 H Physical Exam Const alert Constitutional Narrative: She has more facial expression than she had at admission to rehab and she is smiling. she is more alert and her dtr Leslie has noticed a significant improvement in her ability to participate in conversation. General Appearance: cooperative Orientation / Consciousness: confused Resp normal respiratory effort, normal air movement and clear to auscultation bilaterally Effort and Inspection: Negative for tachypneic Cardio no murmurs, no rub and no gallops Cardio Narrative: irreg irreg rhythm. GI soft to palpation and non-tender GI Narrative: Bowel sounds are hypoactive. No guarding with palpation. Mildly tympanic. No abdominal bruits. 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): (5) Cognitive dysfunction: (6) Metabolic alkalosis with respiratory acidosis: PLAN: Resolved with hydration (7) Dehydration: (8) Acute left-sided weakness: (9) Type 2 diabetes mellitus: QUALIFIERS: Diabetes mellitus retirement insulin use: with buttermaker continuous churn use Diabetes mellitus complication status: with circulatory complication Diabetes mellitus complication detail: with other circulatory complications Qualified Code(s): E11.59 - Type 2 diabetes mellitus with other circulatory complications; Z79.4 - buttermaker continuous churn (current) use of insulin (10) Hypothyroidism: QUALIFIERS: Hypothyroidism type: acquired Qualified Code(s): E03.9 - Hypothyroidism, unspecified (11) Depression: QUALIFIERS: Depression Type: unspecified Qualified Code(s): F32.A - Depression, unspecified (12) Atrial fibrillation, chronic: (13) Restless leg syndrome: (14) Chronic congestive heart failure: QUALIFIERS: Heart failure type: combined systolic and diastolic Qualified Code(s): I50.42 - Chronic combined systolic (congestive) and diastolic (congestive) heart failure (15) Secondary pulmonary arterial hypertension: (16) Non-rheumatic tricuspid valve insufficiency: (17) Nonischemic cardiomyopathy: (18) Essential (primary) hypertension: (19) Nonrheumatic mitral (valve) insufficiency: (20) Hyperlipidemia: QUALIFIERS: Hyperlipidemia type: pure hypercholesterolemia Qualified Code(s): E78.00 - Pure hypercholesterolemia, unspecified; E78.0 - Pure hypercholesterolemia (21) PVT (paroxysmal ventricular tachycardia): (22) Obesity (BMI 30.0-34.9): (23) BALJEET (obstructive sleep apnea): PLAN: Plan 1. Continue therapy 2. Add trazodone 50 mg p.o. nightly to her current drug regimen 3. Increase levothyroxine to 88 mcg p.o. daily....recheck a TSH and T4 in 6 weeks. 4. Continue to encourage increased fluid intake - dtr brought in some Crystal Light because Gabrielle likes this better than plain water. 5. Repeat a BMP on 6. Continue duloxetine in the AM. Gabrielle does have some chronic pain and this will likely help with chronic pain in addition to treating depression. 7. Plan an overnight sleep study on the date of discharge from acute rehab. 8.. I suspect the cognitive dysfunction is a multifactorial problem. Depression, isolation, recent CVA, sleep deprivation all contribute. I also suspect she may have underlying dementia. Will check a B12 level and an LOBO. She will follow up with neurology post DC from rehab. She will be moving in with her dtr Leslie and she is OK with this. The suggestion was made to have Leslie set up the pill boxes and manage Gabrielle's finances. ST is recommending 24/7 supervision at DC due to poor cognitive function and poor safety awareness. Charges/Coding Visit Charges Inpatient E&M: 62511 Subs Hosp L2
[2023-12-10 11:31] LABS: Bedside Glucose 114 mg/dL (74-106)
[2023-12-10] MEDS: Ferrous Sulfate 325 MG Tablet PO (13:02)
--- NOTE | 2023-12-10 13:18 | CASEMGMT ---
Social Work IDT met with patient and dtr for Team meeting. Discussed patient's progress in PT/OT/ST/SN. Educated to Medicare approval of 17 days with DC 12/22. Currently, IDT is recommending 28/05 care. 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 SW offered ongoing assistance with those options. Will ReTeam next week and better determine needs for DC after further improvement. SW will continue to follow. MITALI CopeW
[2023-12-10] MEDS: DULAGLUTIDE 0.75 MG/0.5 ML PEN.INJCTR SC (16:26)
--- NOTE | 2023-12-10 16:31 | CHAPLAIN ---
Type of Pastoral Visit _x__ Initial Visit ___ Follow-up Visit ___ On-call Visit ___ General Patient Visit ___ Spiritual Assessment ___ Family Conference ___ Bereavement ___ Rapid Response ___ Code Blue ___ Other (describe below) Pastoral Care Referral From _x__ Patient ___ Family ___ Nurse ___ Physician ___ Tc Operator ___ Traffic Court Referee ___ Other (describe below) Sacrament/Intervention _x__ Active listening ___ Anointing ___ Baptist ___ Bereavement ___ Communion ___ Monica exploration ___ _x__ Life review _x__ Prayer ___ Reconciliation ___ Sacrament of Sick _x__ Supportive presence ___ Wedding ___ Other (describe below) Pastoral Comments patient is soft spoken but pleasant to talk with at this visit; pt states her reason for being in rehab and that she sees some improvements already; pt has been but has family in the area for support; pt talks about her working career and how much she enjoyed her jobs; pt was involved in a rastafari and hasn't attended services for a long time but misses it; pt appreciated the visit and prayer support give for spiritual care
[2023-12-10 16:45] LABS: Bedside Glucose 128 mg/dL (74-106)
[2023-12-10 19:40] VITALS: BP 143/94; PULSE 90; RESP 16; TEMP 36.7; O2SAT 96
[2023-12-10] MEDS: 0.9% Saline Lock 10 ML Syringe IV (20:10)
[2023-12-10 20:42] VITALS: PULSE 90; RESP 16; O2SAT 99
[2023-12-10] MEDS: Insulin Glargine-YFGN 100 UNIT/ML Pen 8 UNIT SC (21:02)
[2023-12-10] MEDS: traZODone 50 MG Tablet PO (21:02)
[2023-12-10] MEDS: Atorvastatin Calcium 20 MG Tablet PO (21:02)
[2023-12-10] MEDS: Pramipexole Di-HCl 0.125 MG Tablet PO (21:03)
[2023-12-10] MEDS: OLOPATADINE HCL OPHTHALMIC (21:18)
[2023-12-10 21:36] LABS: Bedside Glucose 127 mg/dL (74-106)
[2023-12-11] MEDS: Levothyroxine 88 MCG Tablet PO (06:21)
[2023-12-11] MEDS: Menthol/Lanolin/Calamine/Znox 113 GM Tube 1 APPLIC TOPICAL ×2 (06:25→21:42)
[2023-12-11] MEDS: Nystatin Powder 15gm Bottle 1 APPLIC TOPICAL ×2 (06:25→21:24)
[2023-12-11 06:50] LABS: Bedside Glucose 107 mg/dL (74-106)
[2023-12-11 07:04] VITALS: BP 138/86; PULSE 88; RESP 16; TEMP 37; O2SAT 97
--- NOTE | 2023-12-11 07:50 | PCM.PROGNOTE ---
Subjective Subjective Afebrile VSS-the last 2 blood pressures have ranged from 138/86 to 143/94. Heart rate has ranged from 81-98 over the past 24 hours. Maintaining appropriate oxygen saturation on RA Oral intake is pretty good. She took 50 to 74% of her breakfast and lunch yesterday and 75 to 100% of her dinner. Oral fluid intake yesterday was 1270 and the fluid balance was -10 for the day. Last bowel movement was 12/10/2023. It was formed. The blood sugar record was reviewed and the blood sugars are under excellent control with no hypoglycemia. Fasting blood sugar this morning is 107. Discussed with nursing - no problems that need addressed. Slept a little better last night after Trazodone but, she gets up frequently to toilet. Reviewed the PT/OT/ST notes Medication list reviewed. Antihypertensives include carvedilol 12.5 mg p.o. twice daily and losartan 50 mg p.o. twice daily.. Cozaar dose was just increased to 50 BID yesterday......she had been on 50 once a day. Gabrielle has a very poor memory and can not tell me if she slept better last night or not. She denies chest pain, cephalgia, lightheadedness, visual changes, shortness of breath, palpitations, nausea/vomiting/abdominal pain, dysuria and calf pain.. Objective Data Objective Data Vital Signs: Vital Signs Temp Pulse Resp BP Pulse Ox O2 Del Method O2 Flow Rate 98.6 F 88 16 138/86 H 97 Room Air 0 12/11/23 07:04 12/11/23 07:04 12/11/23 07:04 12/11/23 07:04 12/11/23 07:04 12/11/23 07:04 12/06/23 21:53 FiO2 21 12/06/23 21:53 Oxygen Flow Rate (L/min) 0 Oxygen Delivery Method Room Air Weight: 198 lb 13.711 oz Body Mass Index (BMI) 31.1 Intake & Output: Intake and Output for Last 24 Hours 12/09/23 12/10/23 12/11/23 23:59 23:59 23:59 Intake Total 1700 / 1700 1270 / 1270 110 / 110 Output Total 750 / 750 1280 / 1280 540 / 540 Balance 950 / 950 -10 / -10 -430 / -430 Lab / Micro Data 12/06/23 05:35 12/08/23 05:11 Labs: Laboratory Results - last 24 hr 12/10/23 11:13: POC Glucose 114 H 12/10/23 16:20: POC Glucose 128 H 12/10/23 20:57: POC Glucose 127 H 12/11/23 06:30: POC Glucose 107 H Physical Exam Const alert Constitutional Narrative: Flat affect General Appearance: cooperative Orientation / Consciousness: confused HEENT head/scalp atraumatic Eyes PERRL and EOMs intact bilaterally Neck supple, no JVD, No nodes and no carotid bruits General: trachea midline Resp normal respiratory effort, normal air movement and clear to auscultation bilaterally Effort and Inspection: Negative for tachypneic Cardio no murmurs, no rub and no gallops Cardio Narrative: irreg irreg rhythm. GI soft to palpation and non-tender GI Narrative: Bowel sounds are hypoactive. No guarding with palpation. Mildly tympanic. No abdominal bruits. Extremity no calf tenderness Extremity Narrative: The fingers on both hands are warm. She has pain over both shins with more than just very light touch. No pain in the knees or the ankles. Pedal pulses are diminished BL. Arterial studies in 2019 were normal. Venous US in 2020 and 2018 are negative for clot in the RLE General Extremity: Negative for edema Skin no wounds General Skin Exam: no breakdown Rashes: no rashes Neuro Neuro Narrative: + facial droop on the left and mild left side weakness. Very little expression/masked facies? No cogwheel rigidity. Has had trouble with her balance for a few years and always uses a WW to ambulate. No ataxia with finger-nose or heel-kirby. No extinction. Intact sensation. Decreased blink. D/W ST....... informal cognitive?linguistic assessment completed in conjunction with [facility] and the B CAT score was 27/50 indicating significant cognitive impairment. She had mild dysarthria with reduction in vocal intensity and quality. There were mild word retrieval deficits. 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): (5) Cognitive dysfunction: (6) Acute left-sided weakness: (7) Type 2 diabetes mellitus: QUALIFIERS: Diabetes mellitus keno terminal operator insulin use: with keno terminal operator use Diabetes mellitus complication status: with circulatory complication Diabetes mellitus complication detail: with other circulatory complications Qualified Code(s): E11.59 - Type 2 diabetes mellitus with other circulatory complications; Z79.4 - intermediate (current) use of insulin (8) Hypothyroidism: QUALIFIERS: Hypothyroidism type: acquired Qualified Code(s): E03.9 - Hypothyroidism, unspecified (9) Depression: QUALIFIERS: Depression Type: unspecified Qualified Code(s): F32.A - Depression, unspecified (10) Atrial fibrillation, chronic: (11) Restless leg syndrome: (12) Chronic congestive heart failure: QUALIFIERS: Heart failure type: combined systolic and diastolic Qualified Code(s): I50.42 - Chronic combined systolic (congestive) and diastolic (congestive) heart failure (13) Secondary pulmonary arterial hypertension: (14) Non-rheumatic tricuspid valve insufficiency: (15) Nonischemic cardiomyopathy: (16) Essential (primary) hypertension: (17) Nonrheumatic mitral (valve) insufficiency: (18) Hyperlipidemia: QUALIFIERS: Hyperlipidemia type: pure hypercholesterolemia Qualified Code(s): E78.00 - Pure hypercholesterolemia, unspecified; E78.0 - Pure hypercholesterolemia (19) PVT (paroxysmal ventricular tachycardia): (20) Obesity (BMI 30.0-34.9): (21) BALJEET (obstructive sleep apnea): PLAN: Plan 1. Continue therapy 2. Decrease Accu-Cheks to twice daily 3. BMP ordered for 12/13/2023. 4. Increase trazodone to [address] Mirapex on hold. Charges/Coding Visit Charges Inpatient E&M: 25936 Subs Hosp L2
[2023-12-11] MEDS: OLOPATADINE HCL OPHTHALMIC ×2 (08:12→21:25)
[2023-12-11] MEDS: Losartan Potassium 50 MG Tablet PO ×2 (08:13→21:24)
[2023-12-11] MEDS: Carvedilol 12.5 MG Tablet PO ×2 (08:13→21:24)
[2023-12-11] MEDS: Pioglitazone Hydrochloride 45 MG Tablet PO (08:13)
[2023-12-11] MEDS: APIXABAN 5 MG TABLET PO ×2 (08:13→21:25)
[2023-12-11] MEDS: Pantoprazole Sodium 20 MG Tablet PO (08:13)
[2023-12-11] MEDS: Calcium (Elemental) 500 MG Tablet PO ×2 (08:13→17:19)
[2023-12-11] MEDS: DULoxetine Hcl 30 MG Capsule PO (08:13)
[2023-12-11] MEDS: Meloxicam 15 MG Tablet PO (08:13)
[2023-12-11] MEDS: Magnesium Chloride 64 MG Delay Rel.Tablet 128 MG PO ×2 (08:13→21:25)
[2023-12-11] MEDS: metFORMIN HCl 1,000 MG Tablet 1000 MG PO ×2 (08:14→17:19)
[2023-12-11] MEDS: Arthritis Pain Compound 60 CLICK TUBE TOPICAL ×2 (08:14→21:24)
[2023-12-11] MEDS: Ferrous Sulfate 325 MG Tablet PO (11:46)
[2023-12-11 16:24] LABS: Bedside Glucose 98 mg/dL (74-106)
[2023-12-11 19:14] VITALS: BP 102/58; PULSE 74; RESP 17; TEMP 36.9; O2SAT 96
[2023-12-11] MEDS: Acetaminophen 325 MG Tablet 650 MG PO (20:51)
[2023-12-11] MEDS: 0.9% Saline Lock 10 ML Syringe IV (21:23)
[2023-12-11] MEDS: Atorvastatin Calcium 20 MG Tablet PO (21:24)
[2023-12-11] MEDS: traZODone 100 MG Tablet PO (21:25)
[2023-12-11] MEDS: Insulin Glargine-YFGN 100 UNIT/ML Pen 8 UNIT SC (21:29)
[2023-12-11 22:00] VITALS: PULSE 74; RESP 17; O2SAT 96
[2023-12-11 22:13] LABS: Bedside Glucose 116 mg/dL (74-106)
--- NOTE | 2023-12-12 01:18 | NURSING ---
Pt called for assistance within 20 minutes of lowering thermostat temperature, increasing fan speed, repositioning in bed, and removing sheet, pt asked for all adjustments to be reversed. [place] added with sheet. Lower fan speed and then turn fan completely off. Thermostat temp checked. Needs are met at this time, per pt.
[2023-12-12] MEDS: Levothyroxine 88 MCG Tablet PO (05:37)
[2023-12-12] MEDS: Nystatin Powder 15gm Bottle 1 APPLIC TOPICAL ×2 (05:37→21:10)
[2023-12-12] MEDS: Menthol/Lanolin/Calamine/Znox 113 GM Tube 1 APPLIC TOPICAL ×2 (05:37→21:10)
[2023-12-12] MEDS: Acetaminophen 325 MG Tablet 650 MG PO ×2 (05:46→21:40)
[2023-12-12 06:07] LABS: Bedside Glucose 93 mg/dL (74-106)
[2023-12-12 06:41] VITALS: BMI 31.4
[2023-12-12 07:14] VITALS: BP 141/66; PULSE 76; RESP 15; TEMP 36.9; O2SAT 95
[2023-12-12] MEDS: Pantoprazole Sodium 20 MG Tablet PO (08:45)
[2023-12-12] MEDS: Magnesium Chloride 64 MG Delay Rel.Tablet 128 MG PO ×2 (08:45→21:01)
[2023-12-12] MEDS: Pioglitazone Hydrochloride 45 MG Tablet PO (08:45)
[2023-12-12] MEDS: APIXABAN 5 MG TABLET PO ×2 (08:45→21:01)
[2023-12-12] MEDS: DULoxetine Hcl 30 MG Capsule PO (08:45)
[2023-12-12] MEDS: Meloxicam 15 MG Tablet PO (08:45)
[2023-12-12] MEDS: Losartan Potassium 50 MG Tablet PO ×2 (08:46→21:01)
[2023-12-12] MEDS: Carvedilol 12.5 MG Tablet PO ×2 (08:46→21:01)
[2023-12-12] MEDS: Calcium (Elemental) 500 MG Tablet PO ×2 (08:46→17:03)
[2023-12-12] MEDS: Arthritis Pain Compound 60 CLICK TUBE TOPICAL ×2 (08:46→21:03)
[2023-12-12] MEDS: metFORMIN HCl 1,000 MG Tablet 1000 MG PO ×2 (08:46→17:03)
[2023-12-12] MEDS: OLOPATADINE HCL OPHTHALMIC ×2 (08:46→21:02)
[2023-12-12] MEDS: Ferrous Sulfate 325 MG Tablet PO (13:49)
[2023-12-12 16:58] LABS: Bedside Glucose 107 mg/dL (74-106)
[2023-12-12 19:22] VITALS: BP 144/94; PULSE 78; RESP 16; TEMP 36.6; O2SAT 96
[2023-12-12] MEDS: Atorvastatin Calcium 20 MG Tablet PO (21:00)
[2023-12-12] MEDS: traZODone 100 MG Tablet PO (21:00)
[2023-12-12] MEDS: Insulin Glargine-YFGN 100 UNIT/ML Pen 8 UNIT SC (21:01)
[2023-12-12 21:30] LABS: Bedside Glucose 114 mg/dL (74-106)
[2023-12-13] MEDS: Nystatin Powder 15gm Bottle 1 APPLIC TOPICAL ×2 (05:35→21:44)
[2023-12-13] MEDS: Levothyroxine 88 MCG Tablet PO (05:35)
[2023-12-13] MEDS: Menthol/Lanolin/Calamine/Znox 113 GM Tube 1 APPLIC TOPICAL ×2 (05:36→21:44)
[2023-12-13] MEDS: Acetaminophen 325 MG Tablet 650 MG PO ×2 (05:45→21:37)
[2023-12-13 06:05] LABS: Bedside Glucose 109 mg/dL (74-106)
[2023-12-13 06:11] LABS: Anion Gap 2 (5-15); BUN 32 mg/dL (7-18); BUN/Creat Ratio 26.9 RATIO (10-20); Calcium,Total 9.1 mg/dL (8.5-10.1); Chloride 108 mmol/L (98-107); Creatinine, Serum 1.19 mg/dL (0.55-1.02); EST Glomerular Filtration Rate 46 mL/min (>60); Est Glom Filt Rate - Afr Amer 55 mL/min (>60); Estimated Creatinine Clearance 39.32 ml/min; Glucose 110 mg/dL (74-106); Potassium 4.5 mmol/L (3.5-5.1); Sodium Level 137 mmol/L (136-145)
[2023-12-13 07:32] VITALS: BP 141/79; PULSE 80; RESP 18; TEMP 36.4; O2SAT 94
[2023-12-13] MEDS: Calcium (Elemental) 500 MG Tablet PO ×2 (07:50→16:32)
[2023-12-13] MEDS: APIXABAN 5 MG TABLET PO ×2 (07:50→21:38)
[2023-12-13] MEDS: Losartan Potassium 50 MG Tablet PO ×2 (07:50→21:38)
[2023-12-13] MEDS: Carvedilol 12.5 MG Tablet PO ×2 (07:50→21:38)
[2023-12-13] MEDS: Pioglitazone Hydrochloride 30 MG Tablet PO (07:50)
[2023-12-13] MEDS: metFORMIN HCl 1,000 MG Tablet 1000 MG PO ×2 (07:50→16:32)
[2023-12-13] MEDS: DULoxetine Hcl 30 MG Capsule PO (07:50)
[2023-12-13] MEDS: Arthritis Pain Compound 60 CLICK TUBE TOPICAL (07:51)
[2023-12-13] MEDS: Magnesium Chloride 64 MG Delay Rel.Tablet 128 MG PO ×2 (07:51→21:38)
[2023-12-13] MEDS: Pantoprazole Sodium 20 MG Tablet PO (07:51)
[2023-12-13] MEDS: OLOPATADINE HCL OPHTHALMIC ×2 (07:51→21:37)
[2023-12-13] MEDS: Meloxicam 15 MG Tablet PO (07:51)
--- NOTE | 2023-12-13 09:41 | PCM.PROGNOTE ---
Subjective Subjective Afebrile VSS-systolic remains mildly elevated. Cozaar was increased from 50 to 100 mg daily a few days ago. Will continue to monitor Maintaining appropriate oxygen saturation on RA while awake Oral intake is much better. Oral fluid intake is fair. She took 1120 yesterday. Blood sugars remain very well-controlled with no hypoglycemia. Last bowel movement was 12/10/2023. She has not been getting any stool softeners. they are PRN and she is moving her bowels only every 3-4 days. She denies feeling bloated. Discussed with nursing - no problems that need addressed. She is not motivated to do things for herself. Wants the nurses to put the toothpaste on the brush and then hand her the brush. Wants the nurse to pepper picker her legs and put a pillow under her knees........she is able to do this without assist. Telling the nurses the arthritis cream we are using to control pain over the anterior shins is helping but, tells her dtr it is not. Memory is poor but, she is doing better with the memory aids the ST is teaching her. Reviewed the PT/OT/ST notes Medication list reviewed. All lab from this AM has been personally reviewed. BUN is increasing and is 32 today, up from 26 on 12/08/2023. Creatinine is 1.19, up from 1.05 on 12/08/2023. GFR is 46 which is consistent with stage III chronic renal failure. Calcium is within normal limits. B12 is pending. Gabrielle denies lightheadedness, cephalgia, vertigo, chest pain, shortness of breath, cough, nausea/vomiting/abdominal pain, dysuria and calf pain. She tells me she thinks her mood is improved since she has been in rehab. She recognizes that she still needs a lot of assistance with some activities. She tells me she has trouble standing at the sink and maintaining her posture while brushing her teeth. Still wants to use the WC when standing at the sink. She has been incontinent of urine and feces the past few days. Gabrielle denies restless leg at night and the Mirapex was held last night. Objective Data Objective Data Vital Signs: Vital Signs Temp Pulse Resp BP Pulse Ox O2 Del Method O2 Flow Rate 97.6 F L 80 18 141/79 H 94 Room Air 0 12/13/23 07:32 12/13/23 07:32 12/13/23 07:32 12/13/23 07:32 12/13/23 07:32 12/13/23 07:32 12/06/23 21:53 FiO2 21 12/06/23 21:53 Oxygen Flow Rate (L/min) 0 Oxygen Delivery Method Room Air Weight: 200 lb 13.458 oz Body Mass Index (BMI) 31.4 Intake & Output: Intake and Output for Last 24 Hours 12/11/23 12/12/23 12/13/23 23:59 23:59 23:59 Intake Total 1030 / 1030 1120 / 1360 530 / 530 Output Total 1240 / 1240 720 / 1270 850 / 850 Balance -210 / -210 400 / 90 -320 / -320 Lab / Micro Data 12/06/23 05:35 12/13/23 05:38 Labs: Laboratory Results - last 24 hr 12/12/23 16:21: POC Glucose 107 H 12/12/23 20:59: POC Glucose 114 H 12/13/23 05:38: Sodium 137, Potassium 4.5, Chloride 108 H, Carbon Dioxide 27.0, Anion Gap 2 L, BUN 32 H, Creatinine 1.19 H, Estim Creat Clear Calc 39.32, Est GFR (MDRD) Af Amer 55 L, Est GFR (MDRD) Non-Af 46 L, BUN/Creatinine Ratio 26.9 H, Glucose 110 H, Calcium 9.1 12/13/23 05:46: POC Glucose 109 H Physical Exam Const alert Constitutional Narrative: Talkative. Making good eye contact with me today. She blinks her eyes more often now and she has increased facial expression. She is answering questions and following commands appropriately. More modulation to her voice and talking more than at admission. She is oriented to person and place and knows the month. She initially told me she was 65 years old but then corrected herself and said 88. She could not recall the name of the governor of [place] or the vice president [employer]. General Appearance: cooperative Resp clear to auscultation bilaterally Resp Narrative: No conversational dyspnea. Cardio Cardio Narrative: Irregular irregular with controlled ventricular response. GI normal to inspection, nondistended, normoactive bowel sounds, soft to palpation and non-tender Neuro Neuro Narrative: 1. LOC Alert: 0 2. LOC/Orientation: 1 3. LOC Commands: 0 4. Horizontal extraocular movements : 0 5. Visual narayan: 0 6. Facial Paresis: 0 7. Dysarthria: 0 8. Best Language/aphasia: 0 9. Motor Left ARM : 0 10. Motor Left LE 11. Motor Right ARM: 0 12. Motor Right leg LE 13. Limb ataxia: 0 14. Sensory: 0 15. Neglect: 0 Total score 1 Gabrielle was able to correctly name 6 of 6 objects on the NIH stroke scale naming list. She was able to correctly read all the phrases. She had no dysarthria with reading the words. She was able to tell me what was going on in the picture. Coordination / Balance: [id number] test normal and [id number] test normal Speech: speech normal Psych cooperative Psych Narrative: Affect is no longer flat. She is more engaged when I am talking with her and she is making excellent eye contact today. She has increased facial expression and she is smiling a lot. Her voice is projecting better and her voice is not as flat but has more modulation to it. 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): (5) Cognitive dysfunction: (6) Acute left-sided weakness: (7) Type 2 diabetes mellitus: QUALIFIERS: Diabetes mellitus long-term insulin use: with medical terminologist use Diabetes mellitus complication status: with circulatory complication Diabetes mellitus complication detail: with other circulatory complications Qualified Code(s): E11.59 - Type 2 diabetes mellitus with other circulatory complications; Z79.4 - buttermaker (current) use of insulin (8) Hypothyroidism: QUALIFIERS: Hypothyroidism type: acquired Qualified Code(s): E03.9 - Hypothyroidism, unspecified (9) Depression: QUALIFIERS: Depression Type: unspecified Qualified Code(s): F32.A - Depression, unspecified (10) Atrial fibrillation, chronic: (11) Restless leg syndrome: (12) Chronic congestive heart failure: QUALIFIERS: Heart failure type: combined systolic and diastolic Qualified Code(s): I50.42 - Chronic combined systolic (congestive) and diastolic (congestive) heart failure (13) Secondary pulmonary arterial hypertension: (14) Non-rheumatic tricuspid valve insufficiency: (15) Nonischemic cardiomyopathy: (16) Essential (primary) hypertension: (17) Nonrheumatic mitral (valve) insufficiency: (18) Hyperlipidemia: QUALIFIERS: Hyperlipidemia type: pure hypercholesterolemia Qualified Code(s): E78.00 - Pure hypercholesterolemia, unspecified; E78.0 - Pure hypercholesterolemia (19) PVT (paroxysmal ventricular tachycardia): (20) Obesity (BMI 30.0-34.9): (21) BALJEET (obstructive sleep apnea): PLAN: Plan 1. Continue therapy. 2. I talked with Gabrielle's dtr, Leslie, today and she will be coming in tomorrow morning to participate in shared care with the therapists. I suspect Gabrielle has significant underlying dementia and will need much more care than Leslie will be able to provide. Leslie babysits her grandchildren 3 days a week and is already admittedly feeling overwhelmed. There is no evidence of NPH on the CT brain, T4 is normal, B12 is pending. Will refer to a neurologist at [facility] from rehab so that she can be evaluated for dementia and started on tx if indicated. 3. Will have the give Leslie a list of area memory care facilities to consider. Charges/Coding Visit Charges Inpatient E&M: 72398 Subs Hosp L2
[2023-12-13 11:54] LABS: Vitamin B12 193 pg/mL (211-911)
[2023-12-13] MEDS: Ferrous Sulfate 325 MG Tablet PO (12:12)
[2023-12-13 17:07] LABS: Bedside Glucose 100 mg/dL (74-106)
[2023-12-13 20:30] VITALS: BP 117/76; PULSE 84; RESP 15; TEMP 36.3; O2SAT 96
[2023-12-13] MEDS: Atorvastatin Calcium 20 MG Tablet PO (21:37)
[2023-12-13] MEDS: Senna/Docusate Sodium 1 Tablet PO (21:37)
[2023-12-13] MEDS: Insulin Glargine-YFGN 100 UNIT/ML Pen 8 UNIT SC (21:38)
[2023-12-13] MEDS: traZODone 100 MG Tablet PO (21:38)
[2023-12-14] MEDS: Levothyroxine 88 MCG Tablet PO (04:57)
[2023-12-14 06:51] LABS: Bedside Glucose 88 mg/dL (74-106)
[2023-12-14 07:20] VITALS: BP 108/59; PULSE 77; RESP 17; TEMP 36.3; O2SAT 94
[2023-12-14] MEDS: Carvedilol 12.5 MG Tablet PO ×2 (08:07→21:39)
[2023-12-14] MEDS: Senna/Docusate Sodium 1 Tablet PO ×2 (08:07→21:39)
[2023-12-14] MEDS: metFORMIN HCl 1,000 MG Tablet 1000 MG PO ×2 (08:07→17:12)
[2023-12-14] MEDS: APIXABAN 5 MG TABLET PO ×2 (08:07→21:39)
[2023-12-14] MEDS: Pioglitazone Hydrochloride 30 MG Tablet PO (08:08)
[2023-12-14] MEDS: Meloxicam 15 MG Tablet PO (08:08)
[2023-12-14] MEDS: OLOPATADINE HCL OPHTHALMIC ×2 (08:08→21:41)
[2023-12-14] MEDS: Pantoprazole Sodium 20 MG Tablet PO (08:08)
[2023-12-14] MEDS: DULoxetine Hcl 30 MG Capsule PO (08:08)
[2023-12-14] MEDS: Magnesium Chloride 64 MG Delay Rel.Tablet 128 MG PO ×2 (08:08→21:39)
[2023-12-14] MEDS: Losartan Potassium 50 MG Tablet PO ×2 (08:08→21:39)
[2023-12-14] MEDS: Calcium (Elemental) 500 MG Tablet PO ×2 (08:08→17:12)
[2023-12-14] MEDS: Cyanocobalamin (B12) 1,000 MCG/ML Vial 1000 MCG SC (08:10)
--- NOTE | 2023-12-14 10:17 | PCM.PN.BLA ---
Progress Note Afebrile VSS-blood pressure is 108/59 today and it was 117/76 at at bedtime last night. Cozaar was increased to 50 mg BID earlier in the week for elevated systolic BP. Continue to monitor and put a hold order on the Cozaar for systolic < 110. Oral intake is good. She took over 1600 cc p.o. and fluids yesterday. Last bowel movement was this morning. Weight is stable. and has increased a few lbs since admission to rehab. The blood sugar record was reviewed. She has had no hypoglycemia but blood sugars are lower than I would like to see them in this 88-year-old female. Discussed with nursing - night nursing reports that she was up every 2 hours last night to urinate. Reviewed the PT/OT/ST notes Medication list reviewed. IF AB is pending. Gabrielle c/o pain in her legs to nursing and occasionally to me. Her dtr requested we resume Biofreeze that she uses at home rather than the compounded arthritis cream containing Lidocaine, Voltaren and Baclofen. She is taking Meloxicam 15 mg daily and usually gets 2 doses of Tylenol 650 mg twice a day. She seems to c/o pain in the legs more in the evening. Assessment & Plan Assessment/Plan (1) Debility: (2) Acute stroke due to ischemia: (3) Complex partial seizure: PLAN: No seizures since admission to rehab. 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 (5) Cognitive dysfunction: PLAN: Improving with ST, treating depression, having her interact more with people rather than isolating at home. I suspect this will continue to improve since she is now receiving supplementation for B12 deficiency. (6) Acute left-sided weakness: (7) Type 2 diabetes mellitus: QUALIFIERS: Diabetes mellitus intermodal customer service insulin use: with group home use Diabetes mellitus complication status: with circulatory complication Diabetes mellitus complication detail: with other circulatory complications Qualified Code(s): E11.59 - Type 2 diabetes mellitus with other circulatory complications; Z79.4 - manager terminal (current) use of insulin (8) Hypothyroidism: QUALIFIERS: Hypothyroidism type: acquired Qualified Code(s): E03.9 - Hypothyroidism, unspecified (9) Depression: QUALIFIERS: Depression Type: unspecified Qualified Code(s): F32.A - Depression, unspecified (10) Atrial fibrillation, chronic: (11) Restless leg syndrome: PLAN: No complaints since the Mirapex was placed on hold. (12) Chronic congestive heart failure: QUALIFIERS: Heart failure type: combined systolic and diastolic Qualified Code(s): I50.42 - Chronic combined systolic (congestive) and diastolic (congestive) heart failure (13) Secondary pulmonary arterial hypertension: (14) Non-rheumatic tricuspid valve insufficiency: (15) Nonischemic cardiomyopathy: (16) Essential (primary) hypertension: (17) Nonrheumatic mitral (valve) insufficiency: (18) Hyperlipidemia: QUALIFIERS: Hyperlipidemia type: pure hypercholesterolemia Qualified Code(s): E78.00 - Pure hypercholesterolemia, unspecified; E78.0 - Pure hypercholesterolemia (19) PVT (paroxysmal ventricular tachycardia): (20) Obesity (BMI 30.0-34.9): (21) BALJEET (obstructive sleep apnea): PLAN: Plan 1. Continue therapy 2. DC as needed acetaminophen and start 1000 mg at 1 PM and 9 PM daily. Continue Biofreeze. Would like to avoid any medications that would make her drowsy or confused if possible, 3. Decrease Actos to 15 mg daily. Continue to monitor the Accucheks BID. 4. Urine is very strong/foul smelling today and she had frequency last night. Will order a straight cath and send urine for LEO. 5. Spoke with Leslie who would like to take Gabrielle home with her and see how she does. We discussed the B12 deficiency and how this contributes to confusion and trouble with ambulation. I suspect Gabrielle is going to continue to improve IF she maintains her current activity level at home. 6. Hold Cozaar if the systolic is < 110. Visit Charges Inpatient E&M: 77763 Subs Hosp L2
--- NOTE | 2023-12-14 12:10 | CASEMGMT ---
Social Work SW left printed list of SNFs in [facility], indicating memory care units, with quality and resource data via CarePort Guide, in room for dtr review. Akila Hogan, SDET SUPERVIS[employer]SEM[employer]
[2023-12-14] MEDS: Acetaminophen 500 MG Tablet 1000 MG PO ×2 (12:16→21:38)
[2023-12-14] MEDS: Ferrous Sulfate 325 MG Tablet PO (12:16)
[2023-12-14 13:51] LABS: Bacteria 0 SEEN /hpf (None Seen); Mucous, Urine 0 SEEN /hpf (<or=2+); Red Blood Cells-Urine 0 SEEN /hpf (0-5); White Blood Cells 0 SEEN /hpf (0-5)
[2023-12-14 13:52] LABS: Glucose, Dipstick Normal (Normal); Ketone-Dipstick Negative (Negative); Leukocyte Esterase-Dipstick Negative /ul (Negative); Nitrite-Dipstick Negative (Negative); Occult Blood-Urine Negative /ul (Negative); Protein-Dipstick Negative (Negative); Urine Bilirubin Dipstick Negative (Negative); Urine Urobilinogen Normal (Normal)
[2023-12-14 13:54] LABS: Color, Urine Yellow (Yellow); Urine Clarity Clear (Clear)
[2023-12-14 14:01] LABS: Squamous Epithelial Cells - UA 0-5 SEEN /hpf (5-10)
--- NOTE | 2023-12-14 14:07 | NURSING ---
Insulin pen education provided to daughter during family education. Daughter practiced with pen multiple times.
[2023-12-14 16:28] LABS: Bedside Glucose 83 mg/dL (74-106)
[2023-12-14 19:00] VITALS: BP 162/91; PULSE 74; RESP 16; TEMP 36.5; O2SAT 93
[2023-12-14 21:00] VITALS: BP 141/85; PULSE 81
[2023-12-14] MEDS: Atorvastatin Calcium 20 MG Tablet PO (21:39)
[2023-12-14] MEDS: traZODone 100 MG Tablet PO (21:39)
[2023-12-14] MEDS: Insulin Glargine-YFGN 100 UNIT/ML Pen 8 UNIT SC (21:40)
[2023-12-14] MEDS: Menthol/Lanolin/Calamine/Znox 113 GM Tube 1 APPLIC TOPICAL (21:49)
[2023-12-14] MEDS: Nystatin Powder 15gm Bottle 1 APPLIC TOPICAL (21:49)
[2023-12-14 22:00] VITALS: PULSE 74; RESP 16
[2023-12-15] MEDS: Levothyroxine 88 MCG Tablet PO (05:32)
[2023-12-15] MEDS: Menthol/Lanolin/Calamine/Znox 113 GM Tube 1 APPLIC TOPICAL ×2 (05:54→21:40)
[2023-12-15] MEDS: Nystatin Powder 15gm Bottle 1 APPLIC TOPICAL ×2 (05:55→21:40)
[2023-12-15 06:31] LABS: Bedside Glucose 96 mg/dL (74-106)
[2023-12-15] MEDS: metFORMIN HCl 1,000 MG Tablet 1000 MG PO ×2 (08:08→16:36)
[2023-12-15] MEDS: Calcium (Elemental) 500 MG Tablet PO ×2 (08:08→16:35)
[2023-12-15] MEDS: Carvedilol 12.5 MG Tablet PO ×2 (08:09→21:39)
[2023-12-15] MEDS: Losartan Potassium 50 MG Tablet PO ×2 (08:09→21:39)
[2023-12-15] MEDS: Pioglitazone Hydrochloride 15 MG Tablet PO (08:09)
[2023-12-15] MEDS: Meloxicam 15 MG Tablet PO (08:10)
[2023-12-15] MEDS: OLOPATADINE HCL OPHTHALMIC ×2 (08:10→21:39)
[2023-12-15] MEDS: DULoxetine Hcl 30 MG Capsule PO (08:10)
[2023-12-15] MEDS: Magnesium Chloride 64 MG Delay Rel.Tablet 128 MG PO ×2 (08:10→21:39)
[2023-12-15] MEDS: APIXABAN 5 MG TABLET PO ×2 (08:10→21:39)
[2023-12-15] MEDS: Cyanocobalamin (B12) 1,000 MCG/ML Vial 1000 MCG SC (08:11)
[2023-12-15] MEDS: Pantoprazole Sodium 20 MG Tablet PO (08:11)
[2023-12-15 08:17] VITALS: BP 113/71; PULSE 80; RESP 16; TEMP 36.6; O2SAT 95
[2023-12-15] MEDS: Acetaminophen 500 MG Tablet 1000 MG PO ×2 (12:31→21:38)
[2023-12-15] MEDS: Ferrous Sulfate 325 MG Tablet PO (12:31)
[2023-12-15 17:03] LABS: Bedside Glucose 124 mg/dL (74-106)
[2023-12-15 19:57] VITALS: BP 117/77; PULSE 74; RESP 17; TEMP 36.4; O2SAT 94
[2023-12-15] MEDS: Atorvastatin Calcium 20 MG Tablet PO (21:39)
[2023-12-15] MEDS: Senna/Docusate Sodium 1 Tablet PO (21:39)
[2023-12-15] MEDS: traZODone 100 MG Tablet PO (21:39)
[2023-12-15] MEDS: Insulin Glargine-YFGN 100 UNIT/ML Pen 8 UNIT SC (21:45)
[2023-12-15 22:03] LABS: Bedside Glucose 112 mg/dL (74-106)
[2023-12-16] MEDS: Menthol/Lanolin/Calamine/Znox 113 GM Tube 1 APPLIC TOPICAL ×2 (06:07→21:24)
[2023-12-16] MEDS: Levothyroxine 88 MCG Tablet PO (06:08)
[2023-12-16] MEDS: Nystatin Powder 15gm Bottle 1 APPLIC TOPICAL ×2 (06:08→21:24)
[2023-12-16 07:07] LABS: Bedside Glucose 104 mg/dL (74-106)
[2023-12-16 07:21] VITALS: BP 152/98; PULSE 86; RESP 18; TEMP 36.6; O2SAT 94
[2023-12-16 08:10] VITALS: BP 125/74; PULSE 74
[2023-12-16] MEDS: APIXABAN 5 MG TABLET PO ×2 (08:11→21:24)
[2023-12-16] MEDS: Pioglitazone Hydrochloride 15 MG Tablet PO (08:11)
[2023-12-16] MEDS: Calcium (Elemental) 500 MG Tablet PO ×2 (08:11→17:30)
[2023-12-16] MEDS: DULoxetine Hcl 30 MG Capsule PO (08:11)
[2023-12-16] MEDS: Losartan Potassium 50 MG Tablet PO ×2 (08:11→21:23)
[2023-12-16] MEDS: metFORMIN HCl 1,000 MG Tablet 1000 MG PO ×2 (08:11→17:30)
[2023-12-16] MEDS: Carvedilol 12.5 MG Tablet PO ×2 (08:11→21:23)
[2023-12-16] MEDS: Magnesium Chloride 64 MG Delay Rel.Tablet 128 MG PO ×2 (08:12→21:24)
[2023-12-16] MEDS: Cyanocobalamin (B12) 1,000 MCG/ML Vial 1000 MCG SC (08:12)
[2023-12-16] MEDS: Pantoprazole Sodium 20 MG Tablet PO (08:12)
[2023-12-16] MEDS: Meloxicam 15 MG Tablet PO (08:12)
[2023-12-16] MEDS: OLOPATADINE HCL OPHTHALMIC ×2 (08:12→21:24)
[2023-12-16] MEDS: Acetaminophen 500 MG Tablet 1000 MG PO ×2 (12:31→21:23)
[2023-12-16] MEDS: Ferrous Sulfate 325 MG Tablet PO (12:31)
[2023-12-16 17:36] LABS: Bedside Glucose 97 mg/dL (74-106)
[2023-12-16 19:37] VITALS: BP 146/80; PULSE 76; RESP 18; TEMP 36.7; O2SAT 94
[2023-12-16 21:16] VITALS: BP 147/76; PULSE 80
[2023-12-16] MEDS: Atorvastatin Calcium 20 MG Tablet PO (21:23)
[2023-12-16] MEDS: traZODone 100 MG Tablet PO (21:23)
[2023-12-16] MEDS: Insulin Glargine-YFGN 100 UNIT/ML Pen 8 UNIT SC (21:23)
[2023-12-16] MEDS: Senna/Docusate Sodium 1 Tablet PO (21:24)
[2023-12-16 23:04] LABS: Bedside Glucose 126 mg/dL (74-106)
[2023-12-17] MEDS: Levothyroxine 88 MCG Tablet PO (05:17)
[2023-12-17] MEDS: Menthol/Lanolin/Calamine/Znox 113 GM Tube 1 APPLIC TOPICAL ×2 (05:17→21:27)
[2023-12-17] MEDS: Nystatin Powder 15gm Bottle 1 APPLIC TOPICAL ×2 (05:19→21:27)
[2023-12-17 06:15] LABS: Bedside Glucose 83 mg/dL (74-106)
[2023-12-17 07:03] VITALS: BP 143/74; PULSE 82; RESP 16; TEMP 36.1; O2SAT 95
[2023-12-17] MEDS: Senna/Docusate Sodium 1 Tablet PO (08:05)
[2023-12-17] MEDS: Magnesium Chloride 64 MG Delay Rel.Tablet 128 MG PO ×2 (08:05→21:25)
[2023-12-17] MEDS: APIXABAN 5 MG TABLET PO ×2 (08:05→21:25)
[2023-12-17] MEDS: Carvedilol 12.5 MG Tablet PO ×2 (08:05→21:21)
[2023-12-17] MEDS: DULoxetine Hcl 30 MG Capsule PO (08:05)
[2023-12-17] MEDS: Meloxicam 15 MG Tablet PO (08:06)
[2023-12-17] MEDS: OLOPATADINE HCL OPHTHALMIC ×2 (08:06→21:26)
[2023-12-17] MEDS: Pantoprazole Sodium 20 MG Tablet PO (08:06)
[2023-12-17] MEDS: Losartan Potassium 50 MG Tablet PO ×2 (08:06→21:21)
[2023-12-17] MEDS: Pioglitazone Hydrochloride 15 MG Tablet PO (08:06)
[2023-12-17] MEDS: Calcium (Elemental) 500 MG Tablet PO ×2 (08:06→16:07)
[2023-12-17] MEDS: metFORMIN HCl 1,000 MG Tablet 1000 MG PO ×2 (08:06→16:07)
[2023-12-17] MEDS: Cyanocobalamin (B12) 1,000 MCG/ML Vial 1000 MCG SC (08:07)
--- NOTE | 2023-12-17 09:26 | PN_ITS ---
Subjective Subjective Gabrielle was seen on team rounds today. Her daughter Leslie was present in the room. Afebrile VSS Maintaining appropriate oxygen saturation on RA Oral intake is good. Fluid intake has been better. Blood sugar record was reviewed. The blood sugar has ranged from 83-126 over the past 72 hours. No hypoglycemia. Discussed with nursing - Still not sleeping well some nights. Currently taking Trazodone 100 mg at HS. Reviewed the PT/OT/ST notes. Gabrielle did not do as well with PT today as she did on Sunday.....this may be related to having no therapy on Sundays and doing more sitting. Both physical therapy and Occupational Therapy feel her memory is very poor and she is not able to retain information from one day to the next. ST believes she is better than at admission but, she requires a lot of encouragemen t to complete memory tasks. Medication list reviewed. Gabrielle denies restless leg. She tells me that she slept like a log last night . Tells me that she was also not sleeping well prior to the stroke. She would get up a few times a night. Her one persistent complaint is pain in the legs that is constant. The pain goes from the knee to the ankle. She denies pain in her feet and also denies n umbness in the feet. No pain in the buttocks or the upper thighs. Gabrielle denies CP, SOB, N/V/abd pain, dysuria, cephalgia, lightheadedness and calf pain. Objective Data Objective Data Vital Signs: Vital Signs Temp Pulse Resp BP Pulse Ox O2 Del Method O2 Flow Rate 96.9 F L 82 16 143/74 H 95 Room Air 0 12/17/23 07:03 12/17/23 07:03 12/17/23 07:03 12/17/23 07:03 12/17/23 07:03 12/17/23 07:03 12/06/23 21:53 FiO2 21 12/06/23 21:53 Oxygen Flow Rate (L/min) 0 Oxygen Delivery Method Room Air Weight: 200 lb 13.458 oz Body Mass Index (BMI) 31.4 Intake & Output: Intake and Output for Last 24 Hours 12/15/23 12/16/23 12/17/23 23:59 23:59 23:59 Intake Total 1320 / 1320 1300 / 1300 360 / 360 Output Total 1200 / 1200 900 / 900 450 / 450 Balance 120 / 120 400 / 400 -90 / -90 Lab / Micro Data 12/06/23 05:35 12/13/23 05:38 Labs: Laboratory Results - last 24 hr 12/16/23 17:16: POC Glucose 97 12/16/23 21:22: POC Glucose 126 H 12/17/23 05:27: POC Glucose 83 Physical Exam Const alert Constitutional Narrative: Much more alert during the day than at admission to rehab. General Appearance: cooperative Resp clear to auscultation bilaterally Auscultation: diminished lung sounds localized (in the bases due to less than g ood effort. ) GI normal to inspection, nondistended, normoactive bowel sounds, soft to palpation and non-tender GI Narrative: No guarding with palpation Extremity no calf tenderness Extremity Narrative: mild edema of the toes and ankles........sits with her legs dependent a large amount of time. Edema is a little worse than it has been. General Extremity: edema Skin General Skin Exam: no breakdown Rashes: no rashes Psych Psych Narrative: Making better eye contact when I am talking with her. smiles more. Still has a lack of motivation to get up and get moving. Requests a lot of assistance with things she could be doing herself. Needs a lot of encouragement. Appearance: appropriate Attitude: No agitated Activity / Motor Behavior: Negative for restless Thought Content: No hallucination(s) Assessment & Plan Assessment/Plan (1) Debility: (2) Acute stroke due to ischemia: (3) Complex partial seizure: PLAN: No seizures observed since admission to rehab. Remains of Keppra. 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 Started on B12 supplementation with SQ B12 started last week. (7) BALJEET (obstructive sleep apnea): PLAN: Suspected. Will discuss with sleep lab whether or not they are able to schedule a sleep study for Sunday night.........if they can I will DC Sunday and not Sunday as planned. (8) Nonischemic cardiomyopathy: PLAN: Weight has increased about 5 lbs. She has a hx of pulmonary HTN and nonischemic cardiomyopathy with her last echocardiogram in 2019 showing a 47% ejection fraction with stage II diastolic dysfunction. She was dehydrated with a metabolic alkalosis and compensatory resp acidosis earlier in the admission. She had been taking Lasix 20 mg daily prior to the stroke. This resolved with hydration and discontinuation of Lasix. Will restart Lasix 20 mg Q 48 hours and recheck a BMP prior to DC. (9) Secondary pulmonary arterial hypertension: (10) Type 2 diabetes mellitus: QUALIFIERS: Diabetes mellitus brazer controlled atmospheric furnace insulin use: with brazer controlled atmospheric furnace use Diabetes mellitus complication status: with circulatory complication Diabetes mellitus complication detail: with other circulatory complications Qualified Code(s): E11.59 - Type 2 diabetes mellitus with other circulatory complications; Z79.4 - FPC (current) use of insulin PLAN: Very well-controlled on current diabetic diet. We have been able to decrease medications significantly. Blood sugars are a little on the low side for me especially for an 88-year-old with cognitive dysfunction. Will hold the glargine at at bedtime and continue the other medications as ordered. Continue Accu-Cheks. (11) B12 deficiency: PLAN: Intrinsic factor antibody is at the upper limits of normal which is 1.1. May be able to take increased dose of B12 orally rather than having SQ. (12) Atrial fibrillation, chronic: PLAN: She was not on anticoagulation prior to this recent stroke. She is now on apixaban. (13) Insomnia: (14) Neuropathic pain of both legs: PLAN: Plan 1. Continue therapy 2. Discontinue duloxetine. This may be contributing to insomnia. 3. Start sertraline 50 mg daily starting on 12/19/2023. Previously on Prozac but, I am not sure she was taking her medications as directed.....significant cognitive dysfunction and she was managing her medications by herself with no supervision. 4. Hold glargine at night and continue Accu-Cheks. 5. DC the Trazodone and start Gabapentin at HS. 6. DC Mirapex. Charges/Coding Visit Charges Inpatient E&M: 58683 Subs Hosp L2
[2023-12-17] MEDS: Ferrous Sulfate 325 MG Tablet PO (11:56)
[2023-12-17] MEDS: Acetaminophen 500 MG Tablet 1000 MG PO ×2 (11:57→21:21)
--- NOTE | 2023-12-17 12:49 | CASEMGMT ---
Addendum entered by Akila Hogan 12/17/23 15:35: [facility] can accept with SOC 12/24 Addendum entered by Akila Hogan 12/17/23 13:47: [facility] SW phoned referral. Original Note: Social Work IDT met with patient and dtr for Team meeting. Discussed patient's progress in PT/OT/ST/SN. Medicare approved with DC 12/22. Dtr attended therapy training on Sunday and confirms she can care for pt at home. SW educated to hiring nonskilled [employer] and [facility] to help offset caregiver burnout as dtr is also caring for three grandchildren during the day/-. Dtr requesting [facility] for home. Agreed to skilled HHC. Offered skilled HHC agency list of providers with quality and resource data via CarePort Guide. Dtr agreed. TELMA provided list and resources to dtr to review. TELMA sent referral for [facility] to [facility]. Plan: DC home with dtr 12/22, HHC PT/OT/ST/SN/[facility]
[2023-12-17 15:08] LABS: Intrinsic Factor Ab 1.1 AU/mL (0.0-1.1)
[2023-12-17] MEDS: DULAGLUTIDE 0.75 MG/0.5 ML PEN.INJCTR SC (15:58)
[2023-12-17 16:28] LABS: Bedside Glucose 111 mg/dL (74-106)
[2023-12-17 19:41] VITALS: BP 137/70; PULSE 88; RESP 16; TEMP 36.2; O2SAT 96
[2023-12-17] MEDS: Gabapentin 100 MG Capsule 200 MG PO (21:21)
[2023-12-17] MEDS: Atorvastatin Calcium 20 MG Tablet PO (21:26)
[2023-12-18] MEDS: Nystatin Powder 15gm Bottle 1 APPLIC TOPICAL ×2 (05:48→22:09)
[2023-12-18] MEDS: Levothyroxine 88 MCG Tablet PO (05:49)
[2023-12-18] MEDS: Menthol/Lanolin/Calamine/Znox 113 GM Tube 1 APPLIC TOPICAL ×2 (05:49→22:08)
[2023-12-18 06:03] LABS: Hematocrit 40.3 % (37-47); Hemoglobin 12.1 g/dL (12.0-15.0)
[2023-12-18 06:19] LABS: Bedside Glucose 111 mg/dL (74-106)
[2023-12-18 06:40] LABS: ALB/GLOB Ratio 1.1 RATIO (0.9-2.4); AST(SGOT) 15 U/L (15-37); Alanine Aminotransfer ALT/SGPT 16 U/L (13-56); Albumin, Serum 2.9 g/dL (3.2-5.0); Alkaline Phosphatase 71 U/L (45-117); Anion Gap 3 (5-15); BUN 30 mg/dL (7-18); BUN/Creat Ratio 25.9 RATIO (10-20); Calcium,Total 8.7 mg/dL (8.5-10.1); Chloride 110 mmol/L (98-107); Creatinine, Serum 1.16 mg/dL (0.55-1.02); EST Glomerular Filtration Rate 47 mL/min (>60); Est Glom Filt Rate - Afr Amer 57 mL/min (>60); Estimated Creatinine Clearance 40.34 ml/min; Globulin 2.6 g/dL (2.2-4.2); Glucose 109 mg/dL (74-106); Potassium 4.6 mmol/L (3.5-5.1); Protein, Total 5.5 g/dL (6.4-8.2); Sodium Level 142 mmol/L (136-145)
[2023-12-18 07:14] VITALS: BP 111/74; PULSE 77; RESP 17; TEMP 37.2; O2SAT 94
[2023-12-18] MEDS: Meloxicam 15 MG Tablet PO (07:53)
[2023-12-18] MEDS: Cyanocobalamin (B12) 1,000 MCG/ML Vial 1000 MCG SC (07:53)
[2023-12-18] MEDS: Pantoprazole Sodium 20 MG Tablet PO (07:53)
[2023-12-18] MEDS: OLOPATADINE HCL OPHTHALMIC ×2 (07:53→22:09)
[2023-12-18] MEDS: Losartan Potassium 50 MG Tablet PO ×2 (07:54→22:09)
[2023-12-18] MEDS: Pioglitazone Hydrochloride 15 MG Tablet PO (07:54)
[2023-12-18] MEDS: Magnesium Chloride 64 MG Delay Rel.Tablet 128 MG PO ×2 (07:54→22:08)
[2023-12-18] MEDS: APIXABAN 5 MG TABLET PO ×2 (07:55→22:08)
[2023-12-18] MEDS: Calcium (Elemental) 500 MG Tablet PO ×2 (07:55→17:21)
[2023-12-18] MEDS: Carvedilol 12.5 MG Tablet PO ×2 (07:55→22:09)
[2023-12-18] MEDS: metFORMIN HCl 1,000 MG Tablet 1000 MG PO ×2 (07:55→17:21)
--- NOTE | 2023-12-18 10:21 | PCM.PROGNOTE ---
Subjective Subjective Afebrile VSS Maintaining appropriate oxygen saturation on RA Oral intake is good The blood sugar record was reviewed. Blood sugar at supper yesterday was 111 and it was 111 this morning fasting. Glargine was held last night. Fluid balance yesterday was -100. Discussed with nursing - no problems that need addressed Reviewed the PT/OT/ST notes Medication list reviewed. All lab from this AM was personally reviewed. Hemoglobin is 12.1 which is stable. Sodium is 142 today and the potassium is 4.6. BUN is 30 and the creatinine is stable at 1.16. LFTs are normal. The albumin is 2.9 and calcium is 8.7. Calcium corrected for hypoalbuminemia is within normal limits at 9.5. Gabrielle is c/o feeling weak today. PT tells me that she was losing her balance in the BR this morning and leaning over the sink rather than standing up straight to do hand hygiene. She denies lightheadedness. Hx is difficult with Gabrielle......she can no remember from day to day what she said or did. Today she tells me that she has no pain from the knees distally but, she is c/o pain in the knees BL. When I applied pressure to the anterior shins today she did not c/o pain or grimace. She denies cephalgia, shortness of breath, palpitations, nausea/vomiting/abdominal pain, diarrhea/constipation, burning with urination and calf pain. Her only complaint is that she feels weak and tired today. She tells me that she did not sleep as well last night as she did the preceding night but, nursing did not comment that she slept poorly. Objective Data Objective Data Vital Signs: Vital Signs Temp Pulse Resp BP Pulse Ox O2 Del Method O2 Flow Rate 98.9 F 77 17 111/74 94 Room Air 0 12/18/23 07:14 12/18/23 07:14 12/18/23 07:14 12/18/23 07:14 12/18/23 07:14 12/18/23 07:14 12/06/23 21:53 FiO2 21 12/06/23 21:53 Oxygen Flow Rate (L/min) 0 Oxygen Delivery Method Room Air Weight: 200 lb 13.458 oz Body Mass Index (BMI) 31.4 Intake & Output: Intake and Output for Last 24 Hours 12/16/23 12/17/23 12/18/23 23:59 23:59 23:59 Intake Total 1300 / 1300 900 / 900 660 / 660 Output Total 900 / 900 1000 / 1000 450 / 450 Balance 400 / 400 -100 / -100 210 / 210 Lab / Micro Data 12/18/23 05:46 12/18/23 05:46 Labs: Laboratory Results - last 24 hr 12/13/23 10:52: Intrinsic Factor Ab 1.1 12/17/23 15:59: POC Glucose 111 H 12/18/23 05:46: Hgb 12.1, Hct 40.3, Sodium 142, Potassium 4.6, Chloride 110 H, Carbon Dioxide 29.0, Anion Gap 3 L, BUN 30 H, Creatinine 1.16 H, Estim Creat Clear Calc 40.34, Est GFR (MDRD) Af Amer 57 L, Est GFR (MDRD) Non-Af 47 L, BUN/Creatinine Ratio 25.9 H, Glucose 109 H, Calcium 8.7, Total Bilirubin 0.80, AST 15, ALT 16, Alkaline Phosphatase 71, Total Protein 5.5 L, Albumin 2.9 L, Globulin 2.6, Albumin/Globulin Ratio 1.1 12/18/23 05:54: POC Glucose 111 H Physical Exam Const alert and no apparent distress Constitutional Narrative: sitting in the recliner at the bedside. General Appearance: cooperative Orientation / Consciousness: confused HEENT moist oral mucous membranes HEENT Narrative: tongue deviates mildly to the left when protruded Eyes PERRL and EOMs intact bilaterally Neck supple General: trachea midline Resp normal respiratory effort, normal air movement and clear to auscultation bilaterally Resp Narrative: No cough with deep breathing. No conversational dyspnea. Effort and Inspection: Negative for tachypneic or labored Cardio Cardio Narrative: irreg irreg with controlled VR. GI normal to inspection, nondistended, normoactive bowel sounds, soft to palpation and non-tender Extremity Negative for no calf tenderness General Extremity: Negative for edema Skin General Skin Exam: no breakdown Rashes: no rashes Neuro Neuro Narrative: Dysarthria is much better. No aphasia. Poor memory. Motor Exam: general weakness Psych cooperative and affect normal Psych Narrative: Making good eye contact. Much more responsive when I am talking with her. Smiling at people now. No longer sleeping most of the day. More alert. No agitation, no hallucinations. Excited about getting out of the hospital this weekend. Activity / Motor Behavior: Negative for restless Assessment & Plan Assessment/Plan (1) Debility: (2) Acute stroke due to ischemia: (3) Complex partial seizure: PLAN: No seizures observed since admission to rehab. Remains of Keppra. 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 Started on B12 supplementation with SQ B12 started last week. (7) BALJEET (obstructive sleep apnea): PLAN: Suspected. Will discuss with sleep lab whether or not they are able to schedule a sleep study for Sunday night.........if they can I will DC Sunday and not Sunday as planned. (8) Nonischemic cardiomyopathy: PLAN: Weight has increased about 5 lbs. She has a hx of pulmonary HTN and nonischemic cardiomyopathy with her last echocardiogram in 2018 showing a 47% ejection fraction with stage II diastolic dysfunction. She was dehydrated with a metabolic alkalosis and compensatory resp acidosis earlier in the admission. She had been taking Lasix 20 mg daily prior to the stroke. This resolved with hydration and discontinuation of Lasix. Will restart Lasix 20 mg Q 48 hours and recheck a BMP prior to DC. (9) Secondary pulmonary arterial hypertension: (10) Type 2 diabetes mellitus: QUALIFIERS: Diabetes mellitus extermination supervisor insulin use: with half-way use Diabetes mellitus complication status: with circulatory complication Diabetes mellitus complication detail: with other circulatory complications Qualified Code(s): E11.59 - Type 2 diabetes mellitus with other circulatory complications; Z79.4 - buttermaker (current) use of insulin PLAN: Very well-controlled on current diabetic diet. We have been able to decrease medications significantly. Blood sugars are a little on the low side for me especially for an 88-year-old with cognitive dysfunction. Will hold the glargine at at bedtime and continue the other medications as ordered. Continue Accu-Cheks. (11) B12 deficiency: PLAN: Intrinsic factor antibody is at the upper limits of normal which is 1.1. May be able to take increased dose of B12 orally rather than having SQ. (12) Atrial fibrillation, chronic: PLAN: She was not on anticoagulation prior to this recent stroke. She is now on apixaban. (13) Insomnia: (14) Neuropathic pain of both legs: PLAN: Plan 1. Continue therapy 2. Change Accu-Cheks to ACHS and 3 AM the next 48 hours. 3. Discontinue Actos and continue to hold glargine. 4. Lungs are CTA today and there is no peripheral edema. Instead of scheduling Lasix will make it PRN for increase in wt by > 5 lbs in 1 week. Will have her get weighed daily as an OP and keep a record. May be getting hypoglycemic during the night and this may be what is leading to fatigue. Gabapentin could be contributing to fatigue today. will change the time of administration from 9 PM to 8 PM nightly. It seems to be helping with the distal LE circumferential pain so will try and continue with this medication. Will need to follow up with neurology post DC for the stroke and for evaluation for memory loss. Charges/Coding Visit Charges Inpatient E&M: 41232 Subs Hosp L2
[2023-12-18 11:28] LABS: Bedside Glucose 74 mg/dL (74-106)
[2023-12-18] MEDS: Ferrous Sulfate 325 MG Tablet PO (12:16)
[2023-12-18] MEDS: Acetaminophen 500 MG Tablet 1000 MG PO ×2 (12:18→21:07)
[2023-12-18 16:50] LABS: Bedside Glucose 101 mg/dL (74-106)
[2023-12-18] MEDS: Gabapentin 100 MG Capsule 200 MG PO (21:07)
[2023-12-18 22:00] VITALS: BP 121/68; PULSE 87; RESP 18; TEMP 36.6; O2SAT 95
[2023-12-18] MEDS: Senna/Docusate Sodium 1 Tablet PO (22:08)
[2023-12-18] MEDS: Atorvastatin Calcium 20 MG Tablet PO (22:09)
[2023-12-18 22:43] LABS: Bedside Glucose 111 mg/dL (74-106)
--- NOTE | 2023-12-19 03:27 | NURSING ---
Pt unsteady and can be wobbly at night at the toilet. Pt needed repositioned twice for hygiene. Pt encouraged/reminded to do as much for self as possible. Pt waited at edge of bed for assistance into bed. When reminded that she has been getting legs into bed on her own, pt maneuvered legs into bed and rolled to left side.
[2023-12-19 03:37] LABS: Bedside Glucose 92 mg/dL (74-106)
[2023-12-19 06:00] VITALS: BMI 31.4
[2023-12-19] MEDS: Nystatin Powder 15gm Bottle 1 APPLIC TOPICAL (06:35)
[2023-12-19] MEDS: Menthol/Lanolin/Calamine/Znox 113 GM Tube 1 APPLIC TOPICAL ×2 (06:35→22:21)
[2023-12-19] MEDS: Levothyroxine 88 MCG Tablet PO (06:36)
[2023-12-19 07:16] LABS: Bedside Glucose 115 mg/dL (74-106)
[2023-12-19] MEDS: Calcium (Elemental) 500 MG Tablet PO ×2 (08:12→16:42)
[2023-12-19] MEDS: Carvedilol 12.5 MG Tablet PO ×2 (08:12→22:20)
[2023-12-19] MEDS: metFORMIN HCl 1,000 MG Tablet 1000 MG PO ×2 (08:12→16:42)
[2023-12-19] MEDS: Losartan Potassium 50 MG Tablet PO ×2 (08:12→22:20)
[2023-12-19] MEDS: Magnesium Chloride 64 MG Delay Rel.Tablet 128 MG PO ×2 (08:12→22:21)
[2023-12-19] MEDS: Meloxicam 15 MG Tablet PO (08:13)
[2023-12-19] MEDS: APIXABAN 5 MG TABLET PO ×2 (08:13→22:20)
[2023-12-19] MEDS: Cyanocobalamin (B12) 1,000 MCG/ML Vial 1000 MCG SC (08:13)
[2023-12-19] MEDS: Pantoprazole Sodium 20 MG Tablet PO (08:13)
[2023-12-19] MEDS: OLOPATADINE HCL OPHTHALMIC ×2 (08:13→22:21)
[2023-12-19] MEDS: Sertraline 50 MG Tablet PO (08:14)
[2023-12-19 08:35] VITALS: BP 130/90; PULSE 84; RESP 16; TEMP 37.1; O2SAT 94
[2023-12-19] MEDS: Ferrous Sulfate 325 MG Tablet PO (11:55)
[2023-12-19] MEDS: Acetaminophen 500 MG Tablet 1000 MG PO ×2 (11:58→22:20)
[2023-12-19 12:52] LABS: Bedside Glucose 100 mg/dL (74-106)
[2023-12-19 16:53] LABS: Bedside Glucose 137 mg/dL (74-106)
[2023-12-19] MEDS: Gabapentin 100 MG Capsule 200 MG PO (19:59)
[2023-12-19 22:04] LABS: Bedside Glucose 132 mg/dL (74-106)
[2023-12-19 22:15] VITALS: BP 130/87; PULSE 89; RESP 18; TEMP 36.4; O2SAT 96
[2023-12-19] MEDS: Senna/Docusate Sodium 1 Tablet PO (22:20)
[2023-12-19] MEDS: Atorvastatin Calcium 20 MG Tablet PO (22:20)
[2023-12-20 04:01] LABS: Bedside Glucose 110 mg/dL (74-106)
[2023-12-20 06:58] LABS: Bedside Glucose 116 mg/dL (74-106)
[2023-12-20] MEDS: Levothyroxine 88 MCG Tablet PO (07:08)
[2023-12-20] MEDS: Menthol/Lanolin/Calamine/Znox 113 GM Tube 1 APPLIC TOPICAL ×2 (07:08→21:05)
[2023-12-20 09:24] VITALS: BP 120/79; PULSE 89; RESP 16; TEMP 36.3; O2SAT 92
[2023-12-20] MEDS: metFORMIN HCl 1,000 MG Tablet 1000 MG PO ×2 (10:17→17:38)
[2023-12-20] MEDS: Carvedilol 12.5 MG Tablet PO ×2 (10:17→21:03)
[2023-12-20] MEDS: Losartan Potassium 50 MG Tablet PO ×2 (10:17→21:03)
[2023-12-20] MEDS: Calcium (Elemental) 500 MG Tablet PO ×2 (10:17→17:38)
[2023-12-20] MEDS: Pantoprazole Sodium 20 MG Tablet PO (10:18)
[2023-12-20] MEDS: OLOPATADINE HCL OPHTHALMIC ×2 (10:18→21:04)
[2023-12-20] MEDS: APIXABAN 5 MG TABLET PO ×2 (10:18→21:03)
[2023-12-20] MEDS: Meloxicam 15 MG Tablet PO (10:18)
[2023-12-20] MEDS: Magnesium Chloride 64 MG Delay Rel.Tablet 128 MG PO ×2 (10:18→21:04)
[2023-12-20] MEDS: Cyanocobalamin (B12) 1,000 MCG/ML Vial 1000 MCG SC (10:18)
[2023-12-20] MEDS: Sertraline 50 MG Tablet PO (10:19)
--- NOTE | 2023-12-20 11:15 | PN_ITS ---
Subjective Subjective Afebrile VSS-systolic blood pressures have improved and the blood pressure today is 120/79. Maintaining appropriate oxygen saturation on RA Oral intake is good for food and fair for fluids. The blood sugar record for the past 2 days was reviewed. Blood sugars are under excellent control with no hypoglycemia. BS's consistently in the low 100's for the past 4 accucheks Weight is stable at approximately 200 pounds. Discussed with nursing - Night nurses report that she had scattered wheezes and crackles but, after using IS and PEP she was CTA. I have not heard her coughing. Reviewed the PT/OT/ST notes Medication list reviewed. Gabrielle is c/o dry mouth today. Fluid intake has been down the past few days. Gabrielle denies restless legs. She tells me the pain in her legs is much improved since the gabapentin was started. She is doing better in therapy the past 2 days and I think the trouble she was having Sunday and Sunday are related to sleep deprivation. She is sleeping better with the Gabapentin. Gabrielle denies lightheadedness, cephalgia, shortness of breath, cough, racing heart, nausea/vomiting/abdominal pain, dysuria and calf pain. She is looking very alert today and is smiling and pleasant. She is even making jokes today. Objective Data Objective Data Vital Signs: Vital Signs Temp Pulse Resp BP Pulse Ox O2 Del Method O2 Flow Rate 97.3 F L 89 16 120/79 92 Room Air 0 12/20/23 09:24 12/20/23 09:24 12/20/23 09:24 12/20/23 09:24 12/20/23 09:24 12/20/23 09:24 12/06/23 21:53 FiO2 21 12/06/23 21:53 Oxygen Flow Rate (L/min) 0 Oxygen Delivery Method Room Air Weight: 200 lb 6.403 oz Body Mass Index (BMI) 31.4 Intake & Output: Intake and Output for Last 24 Hours 12/18/23 12/19/23 12/20/23 23:59 23:59 23:59 Intake Total 1880 / 1880 1066 / 1066 690 / 690 Output Total 900 / 900 875 / 875 1450 / 1450 Balance 980 / 980 191 / 191 -760 / -760 Lab / Micro Data 12/21/23 05:50 12/21/23 05:50 Labs: Laboratory Results - last 24 hr 12/19/23 12:00: POC Glucose 100 12/19/23 16:35: POC Glucose 137 H 12/19/23 21:46: POC Glucose 132 H 12/20/23 03:41: POC Glucose 110 H 12/20/23 06:25: POC Glucose 116 H Physical Exam Const alert General Appearance: cooperative HEENT HEENT Narrative: No evidence of thrush. Mouth: dry mucous membranes Neck supple Resp normal respiratory effort, normal air movement and clear to auscultation bilaterally Resp Narrative: No conversational dyspnea, even while exercising. Effort and Inspection: Negative for tachypneic or labored Cardio Cardio Narrative: Irregular irregular rhythm with mildly increased heart rate while she is exercising. GI normal to inspection, nondistended, normoactive bowel sounds and soft to palpation GI Narrative: No guarding with palpation. Extremity no calf tenderness Extremity Narrative: Clifford wraps are in place and currently she has no pitting edema of her ankles. She does tend to develop edema towards the end of the day when she is sitting with her legs dependent. This also usually occurs when the Clifford wrap's have slipped down. Skin Rashes: no rashes Psych cooperative and affect normal Psych Narrative: She is pleasant, talkative and interacting with staff very well. Making good eye contact when I talk with her. She is more animated than at admission. Appearance: appropriate Attitude: No agitated Activity / Motor Behavior: Negative for restless Assessment & Plan Assessment/Plan (1) Debility: (2) Acute stroke due to ischemia: (3) Complex partial seizure: PLAN: No seizures observed since admission to rehab. Remains of [facility]. 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 Started on B12 supplementation with SQ B12 started last week. (7) BALJEET (obstructive sleep apnea): PLAN: Suspected. Will discuss with sleep lab whether or not they are able to schedule a sleep study for Sunday night.........if they can I will DC Sunday and not Sunday as planned. (8) Nonischemic cardiomyopathy: (9) Type 2 diabetes mellitus: QUALIFIERS: Diabetes mellitus complication detail: with other circulatory complications Diabetes mellitus complication status: with circulatory complication Diabetes mellitus longterm insulin use: with meterman use Qualified Code(s): E11.59 - Type 2 diabetes mellitus with other circulatory complications; Z79.4 - senior living (current) use of insulin PLAN: Very well-controlled on current diabetic diet. We have been able to decrease medications significantly. Blood sugars are a little on the low side for me especially for an 88-year-old with cognitive dysfunction. Will hold the glargine at at bedtime and continue the other medications as ordered. Continue Accu-Cheks. (10) B12 deficiency: PLAN: Intrinsic factor antibody is at the upper limits of normal which is 1.1. May be able to take increased dose of B12 orally rather than having SQ. (11) Neuropathic pain of both legs: PLAN: Plan 1. Continue therapy 2. Plan discharge for Sunday12/22/23. will be going home to live her dtr. Gabrielle is good with this and Leslie has come in for family training and she is also good with taking Gabrielle home with her. 3. Continue gabapentin 200 mg p.o. nightly as it seems to be working very well to control the pain in her lower extremities. Gabapentin will also treat restless leg. Will discontinue Mirapex. It has been on hold for several days now with no complaints of restless leg. 4. Blood pressure and diabetes are under excellent control-continue current medications. 5. Encouraged increased fluid intake today. 6. Hemoglobin has been stable on apixaban. 7. Tolerating sertraline with no adverse side effects. I suspect the duloxetine may have been contributing to insomnia so will continue sertraline at discharge. 8. Recheck a CBC, BMP and magnesium in the AM.
[2023-12-20 11:44] LABS: Bedside Glucose 93 mg/dL (74-106)
[2023-12-20] MEDS: Ferrous Sulfate 325 MG Tablet PO (12:17)
[2023-12-20] MEDS: Acetaminophen 500 MG Tablet 1000 MG PO ×2 (12:18→21:08)
[2023-12-20 17:05] LABS: Bedside Glucose 126 mg/dL (74-106)
[2023-12-20 19:30] VITALS: BP 145/90; PULSE 92; RESP 16; TEMP 36.7; O2SAT 98
[2023-12-20] MEDS: Atorvastatin Calcium 20 MG Tablet PO (21:03)
[2023-12-20] MEDS: Gabapentin 100 MG Capsule 200 MG PO (21:03)
[2023-12-20 21:36] LABS: Bedside Glucose 132 mg/dL (74-106)
[2023-12-21 03:15] LABS: Bedside Glucose 138 mg/dL (74-106)
[2023-12-21] MEDS: Levothyroxine 88 MCG Tablet PO (06:00)
[2023-12-21] MEDS: Menthol/Lanolin/Calamine/Znox 113 GM Tube 1 APPLIC TOPICAL ×2 (06:04→20:58)
[2023-12-21 06:06] LABS: Hematocrit 39.9 % (37-47); Mean Corp Hgb Conc 30.1 g/dL (32-36); Mean Corpuscular Hgb 26.5 pg (27.0-32.0); Mean Corpuscular Volume 88.1 fL (81-99); Mean Platelet Vol. 10.6 fl (6.2-12.0); Platelet Count 215 K/mm3 (150-450); RBC Distribution Width CV 14.9 % (11.6-14.6); RBC Distribution Width SD 47.6 fl (35.1-43.9); Red Blood Count 4.53 M/mm3 (4.2-5.4); White Blood Count 8.4 K/mm3 (4.4-11.0)
[2023-12-21 06:23] LABS: Bedside Glucose 131 mg/dL (74-106)
[2023-12-21 06:33] LABS: Anion Gap 0 (5-15); BUN 31 mg/dL (7-18); Chloride 110 mmol/L (98-107); Creatinine, Serum 1.29 mg/dL (0.55-1.02); EST Glomerular Filtration Rate 42 mL/min (>60); Est Glom Filt Rate - Afr Amer 50 mL/min (>60); Estimated Creatinine Clearance 36.23 ml/min; Glucose 141 mg/dL (74-106); Magnesium 1.5 mg/dL (1.6-2.6); Potassium 4.9 mmol/L (3.5-5.1); Sodium Level 143 mmol/L (136-145)
[2023-12-21 07:58] VITALS: BP 119/71; PULSE 81; RESP 17; TEMP 36.6; O2SAT 95
[2023-12-21] MEDS: Sertraline 50 MG Tablet PO (09:10)
[2023-12-21] MEDS: APIXABAN 5 MG TABLET PO ×2 (09:10→21:00)
[2023-12-21] MEDS: Pantoprazole Sodium 20 MG Tablet PO (09:10)
[2023-12-21] MEDS: Meloxicam 15 MG Tablet PO (09:10)
[2023-12-21] MEDS: metFORMIN HCl 1,000 MG Tablet 1000 MG PO ×2 (09:10→17:08)
[2023-12-21] MEDS: Carvedilol 12.5 MG Tablet PO ×2 (09:10→21:01)
[2023-12-21] MEDS: Magnesium Chloride 64 MG Delay Rel.Tablet 128 MG PO ×2 (09:10→21:01)
[2023-12-21] MEDS: Calcium (Elemental) 500 MG Tablet PO ×2 (09:10→17:08)
[2023-12-21] MEDS: Losartan Potassium 50 MG Tablet PO ×2 (09:10→21:00)
[2023-12-21] MEDS: OLOPATADINE HCL OPHTHALMIC ×2 (09:11→21:03)
[2023-12-21 12:22] LABS: Bedside Glucose 84 mg/dL (74-106)
[2023-12-21] MEDS: Ferrous Sulfate 325 MG Tablet PO (12:26)
[2023-12-21] MEDS: Acetaminophen 500 MG Tablet 1000 MG PO ×2 (12:27→20:42)
--- NOTE | 2023-12-21 12:53 | PN_ITS ---
Subjective Subjective Afebrile VSS Maintaining appropriate oxygen saturation on RA Oral intake is good for food and Fair for fluids. Fluid balance yesterday was -1010. In addition she had 2 large liquidy stools. Discussed with nursing - no problems that need addressed. Was incontinent of a diarrhea stool last night per nursing. She had another loose stool earlier this morning but, no further BM's since then. Reviewed the PT/OT/ST notes Medication list reviewed. All lab from this morning was personally reviewed. The white blood cell count is normal at 8.4 and hemoglobin is 12 which is stable. Platelets are within normal limits. Sodium is 143 and the potassium is 4.9. Serum bicarb is mildly elevated at 33, up from 27 on 12/13/2023. The BUN is 31 and the creatinine is up to 1.29 from 1.05 on 12/08/2023. Magnesium is low at 1.5 despite taking magnesium chloride 128 mg p.o. twice daily. Calcium is within normal limits. Gabrielle denies nausea and vomiting. She ate 75% to 100% of her breakfast today. She denies abdominal pain. She continues to complain of dry mouth. She tells me she did not sleep well but nursing documents that she did not sleep well. I do not think Gabrielle can remember from 1 days to the next how she slept. She denies chest pain, orthopnea, paroxysmal nocturnal dyspnea, cough, shortness of breath with exertion, nausea/vomiting/abdominal pain, dysuria and calf pain. Objective Data Objective Data Vital Signs: Vital Signs Temp Pulse Resp BP Pulse Ox O2 Del Method O2 Flow Rate 97.9 F 81 17 119/71 95 Room Air 0 12/21/23 07:58 12/21/23 07:58 12/21/23 07:58 12/21/23 07:58 12/21/23 07:58 12/21/23 07:58 12/06/23 21:53 FiO2 21 12/06/23 21:53 Oxygen Flow Rate (L/min) 0 Oxygen Delivery Method Room Air Weight: 200 lb 6.403 oz Body Mass Index (BMI) 31.4 Intake & Output: Intake and Output for Last 24 Hours 12/19/23 12/20/23 12/21/23 23:59 23:59 23:59 Intake Total 1066 / 1066 1290 / 1290 340 / 340 Output Total 875 / 875 2300 / 2300 1000 / 1000 Balance 191 / 191 -1010 / -1010 -660 / -660 Lab / Micro Data 12/21/23 05:50 12/21/23 05:50 Labs: Laboratory Results - last 24 hr 12/20/23 16:45: POC Glucose 126 H 12/20/23 21:13: POC Glucose 132 H 12/21/23 02:55: POC Glucose 138 H 12/21/23 05:50: WBC 8.4, RBC 4.53, Hgb 12.0, Hct 39.9, MCV 88.1, MCH 26.5 L, MCHC 30.1 L, RDW Std Deviation 47.6 H, RDW Coeff of Bhupinder 14.9 H, Plt Count 215, MPV 10.6, Sodium 143, Potassium 4.9, Chloride 110 H, Carbon Dioxide 33.0 H, Anion Gap 0 L, BUN 31 H, Creatinine 1.29 H, Estim Creat Clear Calc 36.23, Est GFR (MDRD) Af Amer 50 L, Est GFR (MDRD) Non-Af 42 L, BUN/Creatinine Ratio 24.0 H , Glucose 141 H, Calcium 9.0, Magnesium 1.5 L 12/21/23 06:03: POC Glucose 131 H 12/21/23 12:01: POC Glucose 84 Physical Exam Const alert and no apparent distress General Appearance: cooperative HEENT Mouth: dry mucous membranes Resp normal respiratory effort and clear to auscultation bilaterally Effort and Inspection: Negative for tachypneic Cardio no rub and no gallops Cardio Narrative: irreg irreg with increased resting HR today. GI normal to inspection, nondistended, normoactive bowel sounds, soft to palpation and non-tender GI Narrative: No guarding with palpation. Extremity no calf tenderness General Extremity: Negative for edema Skin General Skin Exam: no breakdown Rashes: no rashes Psych cooperative and affect normal Appearance: appropriate Attitude: No agitated Assessment & Plan Assessment/Plan (1) Debility: (2) Acute stroke due to ischemia: PLAN: Appt scheduled with neurology, Dr. Romain Hand, post [place]. He will evaluate for post stroke care and memory loss that predated the stroke. Discharged on Apixaban, ASA, statin. (3) Atrial fibrillation: PLAN: discharge on Apixaban. HGB is stable. (4) Complex partial seizure: PLAN: EEG was negative and Keppra was stopped. No seizures while she has been on rehab. (5) Acute left-sided weakness: PLAN: Improved. Will continue PT/OT with [facility] after DC. 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 Due to undertreated depression, non-compliance with medication due to memory loss, B12 deficiency, acute CVA, polypharmacy. (8) BALJEET (obstructive sleep apnea): PLAN: Has been diagnosed with this in the past and is not on PAP therapy. Sleep lab will contact Gabrielle Nelson's dtr, to schedule an overnight sleep study. (9) Nonischemic cardiomyopathy: PLAN: Will follow up with Charo Cochran from [facility]. (10) Type 2 diabetes mellitus: QUALIFIERS: Diabetes mellitus intermediate insulin use: with termite renewal inspector use Diabetes mellitus complication status: with circulatory complication Diabetes mellitus complication detail: with other circulatory complications Qualified Code(s): E11.59 - Type 2 diabetes mellitus with other circulatory complications; Z79.4 - termite renewal inspector (current) use of insulin PLAN: VEry well controlled at DC with no hypoglycemia. Able to DC Insulin and Actos while on rehab. Continue 1800 calorie carb controlled, low fat diet. (11) B12 deficiency: (12) Neuropathic pain of both legs: (13) Hypomagnesemia: PLAN: Plan 1. Magnesium sulfate 4 g IV today 2. Continue magnesium chloride twice daily 3. Start an IV of normal saline at 75 cc/h x 2 L for contraction alkalosis and increasing creatinine. 4. Plan discharge home with her daughter Leslie tomorrow and home health care. 5. Leslie will be assisting Gabrielle with managing her medications. 6. She is going to follow-up with Dr. Romain Hand for the stroke and for evaluation for memory loss. Charges/Coding Visit Charges Inpatient E&M: 64417 Subs Hosp L2
[2023-12-21] MEDS: 0.9% Normal Saline (1000mL) 1,000 ML 75 ML IV (14:51)
[2023-12-21] MEDS: Magnesium Sulfate 4gm/100mL 4 GM/100 ML IV.SOLN. IV (14:52)
--- NOTE | 2023-12-21 15:53 | EX.DISCHREH ---
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 Romain Hand, post DC. He will evaluate for post stroke care and memory loss that predated the stroke. Discharged on Apixaban, ASA, statin. (3) Atrial fibrillation: Status: Acute Code(s): I48.91 - Unspecified atrial fibrillation Plan: discharged on Apixaban. HGB is stable. (4) Complex partial seizure: Status: Resolved Code(s): G40.209 - Localization-related (focal) (partial) symptomatic epilepsy and epileptic syndromes with complex partial seizures, not intractable, without status epilepticus Plan: EEG was negative and Keppra was stopped. No seizures while she has been on rehab. (5) Acute left-sided weakness: Status: Acute Code(s): R53.1 - Weakness Plan: Improved. Will continue PT/OT with [facility] after DC. 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 Due to undertreated depression, non-compliance with medication due to memory loss, B12 deficiency, acute CVA, polypharmacy. (8) BALJEET (obstructive sleep apnea): Status: Suspected Code(s): G47.33 - Obstructive sleep apnea (adult) (pediatric) Plan: Has been diagnosed with this in the past and is not on PAP therapy. Sleep lab will contact Dilia Nelson's dtr, to schedule an overnight sleep study. (9) Nonischemic cardiomyopathy: Status: Chronic Code(s): I42.8 - Other cardiomyopathies Plan: Will follow up with Charo Cochran from [facility]. (10) Type 2 diabetes mellitus: Status: Acute Code(s): E11.9 - Type 2 diabetes mellitus without complications Qualifiers: Diabetes mellitus complication detail: with other circulatory complications Diabetes mellitus complication status: with circulatory complication Diabetes mellitus senior living insulin use: with superintendent container terminal use Qualified Code(s): E11.59 - Type 2 diabetes mellitus with other circulatory complications; Z79.4 - buttermaker continuous churn (current) use of insulin Plan: VEry well controlled at CO with no hypoglycemia. Able to DC Insulin and Actos while on rehab. Continue 1800 calorie carb controlled, low fat diet. (11) B12 deficiency: Status: Acute Code(s): E53.8 - Deficiency of other specified B group vitamins (12) Neuropathic pain of both legs: Status: Chronic Code(s): G57.93 - Unspecified mononeuropathy of bilateral lower limbs (13) Hypomagnesemia: Status: Acute Code(s): E83.42 - Hypomagnesemia Plan 1. Dc home with neri Nelson 2. [facility] for PT/OT/ST/SN/SW 3. Follow up with PCP 4. Will need a TSH and T4 in 4-6 weeks since the Levothyroxine dose was increased from 0.75 mg to 0.88 mg daily. 5. DC on oral B12, 3,000 mg daily. would recheck a B12 in 6-8 weeks. IF AB was 1.1 and the highest normal value is 1.1. 6. Daily weights at home....Lasix ordered PRN for increase in wt by greater than or equal to 3 pounds in a couple days or greater than 5 pounds in 1 week. 7. Recommend she continue with compression stockings.......she has venous insufficiency and her legs are swollen toward the end of the day, especially if she does not elevate. the compression stockings decrease the nocturia. Medications at Discharge Home Medications albuterol sulfate 90 mcg/actuation aerosol inhaler 2 puff inhalation Q6H PRN PRN Sob &/Or Wheezing 12/04/17 meloxicam 15 mg tablet 15 mg PO DAILY anti-inflammatory 90 days ##90 06/26/18 omeprazole 40 mg capsule,delayed release 40 mg PO DAILY GERD 11/06/23 multivitamin (Daily Multi-Vitamin tablet) 1 tab PO DAILY supplement 12/05/23 omega 6-vjj-tki-fish oil 300 mg-1,000 mg capsule (Fish Oil) 1 cap PO BID supplement 12/05/23 Olopatadine HCl 0 ml ophthalmic (eye) BID ##0 12/21/23 acetaminophen 500 mg tablet 1,000 mg (2 x 500 mg) PO 1300,2100 #120 tabs 12/21/23 apixaban 5 mg tablet 5 mg PO BID blood thinner #60 tabs 12/21/23 calcium carbonate 500 mg calcium (1,250 mg) tablet (Oyster Shell Calcium 500) 500 mg PO BIDCM #60 tabs 12/21/23 carvedilol 12.5 mg tablet (Coreg) 12.5 mg PO BID blood pressure #60 tabs 12/21/23 cyanocobalamin (vitamin B-12) 3,000 mcg capsule 3,000 mcg PO DAILY #30 caps 12/21/23 dulaglutide 0.75 mg/0.5 mL subcutaneous pen injector (Trulicity) 0.75 mg (0.5 mL) subcut QWEEK glucose #2 mL 12/21/23 ferrous sulfate 325 mg (65 mg iron) tablet (FeroSul) 325 mg PO DAILY@1200 #30 tabs 12/21/23 furosemide 20 mg tablet 20 mg PO QDAY PRN SWELLING #10 tabs 12/21/23 gabapentin 100 mg capsule 200 mg (2 x 100 mg) PO 2000 #60 caps 12/21/23 levothyroxine 88 mcg tablet 88 mcg PO 0600 #30 tabs 12/21/23 losartan 50 mg tablet 50 mg PO BID #60 tabs 12/21/23 magnesium chloride 64 mg (magnesium chloride) tablet,delayed release (Mag 64) 128 mg (2 x 64 mg) PO BID #120 tabs 12/21/23 metformin 1,000 mg tablet 1,000 mg PO BID glucose #60 tabs 12/21/23 sertraline 50 mg tablet 50 mg PO DAILY #30 tabs 12/21/23 simvastatin 40 mg tablet 40 mg PO QHS CHOLESTEROL #30 tabs 12/21/23 Hospital Course Operations None Procedures None Summary of Care Provided Minutes Spent on Discharge: 40 Hospital Course: DILIA MCKEON, is a 88 YO F with a PMH of nonischemic cardiomyopathy, hypothyroidism, restless leg syndrome, diabetes mellitus type 2, pulmonary hypertension, GERD, hypertension, hyperlipidemia, NSTEMI, osteoarthritis, atrial fibrillation (not on anticoagulation) and obesity who presented to the emergency department at [facility] on 12/01/2023 as a prehospital stroke alert by EMS. EMS was summoned when she was noticed not to be moving the left side of her body and not talking. EMS noted seizure-like activity with clenching of her left face and her left lower extremity shaking for approximately 10 minutes. She was given 1 mg of Ativan upon arrival in the ED. Noncontrast CT brain showed no evidence of acute stroke or hemorrhage. The aspects score was 10/10. CTA of the head and neck showed a negative CTA head and calcified plaque in both carotid bulbs but no significant stenosis or occlusion. The vertebral arteries were normal bilaterally. UA in the ED was + for UTI. Teleneurology was consulted and recommended loading with Keppra 1500 mg for seizures, administering TNK and transferring to the [facility] emergency room as a stroke alert. Upon arrival at [facility] her NIH was 3. CT head showed no hemorrhage or large territory infarct. She was admitted to the neurovascular service. EEG showed no epileptiform activity. MRI of the brain showed no acute abnormality. ASA, Lovenox and Keppra were discontinued. She was started on Eliquis for AF. Transthoracic echocardiogram showed a 60% ejection fraction with mild mitral regurgitation and no PFO, thrombus or wall motion abnormality. The atria were of normal size. EKG showed A-fib with PVCs. LDL was 27, HDL was low at 28, triglycerides were 72 and her hemoglobin A1c was 6.8. She was started on atorvastatin 20 mg daily (she had been taking simvastatin at home). While at [facility] she was seen by PT/OT/ST and acute inpatient rehab was recommended. She was transferred to the acute inpatient rehab unit at [facility] on 12/05/2023 for 3 hours of therapy daily to restore function/independence at or near her level prior to the recent hospital admission. the DC summary from [facility] states the diagnosis was seizure due to UTI? Pt had persistent neurologic deficits at presentation to [facility] rehab and we treated her for CVA. Severity of CVA deficits were likely mild due to the fact that she received TNK in a very timely fashion. She was treated for E. Coli UTI at [facility]. Following antibiotics a repeat UA was done on rehab and she had no WBC's and no bacteria. Dilia was quite confused at presentation to rehab with very poor memory. Affect was very flat. She was on Prozac for depression however, Dilia had been setting up a single pillbox by herself with no one to check her work. She put all her pills for 1 day in the same box and admitted that sometimes she noticed the next day that there were pills left over from the previous day. I am fairly sure she was not taking her medication as prescribed. While at [facility] she was transitioned to Cymbalta. We continued Cymbalta initially but she consistently complained of insomnia and the Cymbalta was discontinued and she was started on sertraline 50 mg daily which she is tolerating well. She always tells me that she did not sleep well when I see her in the morning but, nursing documented she sleeps well most nights. She did not sleep well the night prior to DC. I suspect this was due to urinary frequency and also to anxiety about leaving rehab and going home with her dtr. Lab 1 day prior to DC showed a contraction alkalosis and she was started on IV fluids. Dilia normally has a poor fluid intake despite frequent encouragement to drink more. She did not receive any Lasix while on rehab. Her weight at admission to rehab was 195 pounds but she was very dehydrated and was administered IV fluids. Weight at discharge is stable at 200 pounds. Her weight approximately 1 year ago was 205 pounds. Blood sugars were initially high on rehab and I suspect this was related to the acute stroke. After 7-10 days the BS's dropped and Actos was able to be discontinued. We were also able to discontinue all insulin. At the time of discharge the blood sugars are very well-controlled with no hypoglycemia on metformin 1000 mg twice daily and Trulicity once a week. TSH was mildly increased at 5.15 and the free T4 was 1.28. Because of the memory loss the levothyroxine dose was increased to 0.88 mg daily. She will need a follow-up TSH and T4 in approximately 4 to 6 weeks. A B12 was checked, also because of memory loss was found to be low at 193. She received SQ B12 1000 mg daily x 7 days. She was then transition to 1000 mg subcutaneously weekly and at discharge she was transition to 3000 mg orally daily. And intrinsic factor antibody was checked and was within normal limits at 1.1 but 1.1 is the highest normal. I suspect with an increased oral dose she will be able to maintain a normal B12 level but, would recheck the B12 level in 6-8 weeks and if it is low she will need to have monthly injections. Dilia did well on rehab. With treatment of depression and supplementation of B12 her level of alertness and cognitive function improved significantly. The facial droop is very mild now and her strength and exercise tolerance has also improved. She is no longer napping throughout the day and she no longer tries to refuse therapy. she has been very cooperative. At the time of discharge she is supervision/set up for eating and upper body dressing. She requires only minimal assistance with lower body dressing. She is standby assist for grooming and toilet transfer. She still requires moderate assistance for toileting. She is contact-guard assist for tub/shower transfer. She has ambulated up to 140 feet with a front wheel walker at contact-guard assist. She is able to complete transfers to stand at standby assist/contact-guard assist from various surfaces. She is able to complete two 6 inch steps with 1 handrail at min assist. She goes up and down sidestepping which she feels more comfortable with. Dilia's dtr Leslie came in for family training prior to DC and feels that she will be able to care for her mother at home. I have some reservation about this since Leslie babysits her small grandchildren and Dilia is still needing assistance with Toileting and LB dressing. Leslie was given resources by the hospital social worker for nonskilled home health assist and [place] services to offset caregiver burnout. Dilia has follow up appts with her primary care provider, cardiology and neurology scheduled. She has been diagnosed in the past with BALJEET but, has not been treated. The sleep lab will contact Leslie to schedule a overnight sleep study. Leslie will be supervising her mother when the pill boxes are filled and correcting any mistakes that Dilia is making. Leslie will also need to monitor Dilia's pill box to make sure that she is taking the medications as prescribed. Would avoid any mediations that contribute to confusion and sedation. Dilia was taking 10 mg of Melatonin every night prior to admission to rehabb and she became much more alert and quicker to respond when this medication was stopped. Flexeril was also stopped. I think a big part of the reason she has trouble sleeping is anxiety. would avoid antihistamines and Benzo's because these medications cause confusion and contribute to falls. If she continues to be ansious following DC would consider starting Buspar 5 mg BID. Weight / BMI Weight Weight: 200 lb 6.403 oz Body Mass Index (BMI) 31.4 ABG / Lab / Microbiology Data 12/21/23 05:50 12/21/23 05:50 Laboratory: Laboratory Results - last 24 hr 12/20/23 16:45: POC Glucose 126 H 12/20/23 21:13: POC Glucose 132 H 12/21/23 02:55: POC Glucose 138 H 12/21/23 05:50: WBC 8.4, RBC 4.53, Hgb 12.0, Hct 39.9, MCV 88.1, MCH 26.5 L, MCHC 30.1 L, RDW Std Deviation 47.6 H, RDW Coeff of Bhupinder 14.9 H, Plt Count 215, MPV 10.6, Sodium 143, Potassium 4.9, Chloride 110 H, Carbon Dioxide 33.0 H, Anion Gap 0 L, BUN 31 H, Creatinine 1.29 H, Estim Creat Clear Calc 36.23, Est GFR (MDRD) Af Amer 50 L, Est GFR (MDRD) Non-Af 42 L, BUN/Creatinine Ratio 24.0 H, Glucose 141 H, Calcium 9.0, Magnesium 1.5 L 12/21/23 06:03: POC Glucose 131 H 12/21/23 12:01: POC Glucose 84 Indicators for Scoring Admitted with or Primary Diagnosis of CVA/Stroke: Yes Hx of CVA/Stroke: No Modified Bascom Score MRS Score at time of Evaluation: 4-Moderate/severe disability NIHSS NIHSS 1a. Level of Consciousness: Alert; keenly responsive 1b. LOC Questions: Answers BOTH questions correctly. 1c. LOC Commands: Performs both tasks correctly. 2. Best Gaze: Normal 3. Visual: No visual loss 4. Facial Palsy: Minor paralysis (flattened nasolabial fold, asymmetry on smiling) (much improved) 5a. Left Arm: No drift; arm holds 90 (or 45) degrees for full 10 seconds 5b. Right Arm: No drift; arm holds 90 (or 45) degrees for full 10 seconds 6a. Left Leg: Drift; leg falls by the end of 5-seconds, but does not hit bed 6b. Right Leg: No drift; leg holds 30-degree position for full 5 seconds 7. Limb Ataxia: Absent 8. Sensory: Normal; no sensory loss 9. Best Language: No aphasia; normal 10. Dysarthria: Normal 11. Extinction and Inattention: No abnormality Total: 2 (down from 4 at admission to rehab) Stroke Questions Stroke Team Activated: No Meaningful Use Info Meaningful Use Diagnoses (Choose all that apply): Ischemic CVA CVA Therapy Assessed for PT,OT and/or ST?: Yes Ischemic Stroke Antithrombotic order at d/c?: No Reason antithrombotic not ordered: Drug Intolerance (she is on Meloxicam to control OA pain and did not tolerate addition of ASA. Also she came to us from [facility] neurology and she was not on an anti-platelet drug. ) Dx of Atrial fib/flutter?: Yes Anticoagulant at discharge?: Yes Statins at discharge?: Yes Primary Dx Acute Ischemic CVA?: Yes IV thrombolytic ordered during stay?: No Reason IV thrombolytic not ordered: Treatment not Indicated (She received TNK in the ER long before coming to acute rehab.) Discharge Plan Admission Admit Date/Time: 12/05/23 15:33 Primary Reason for Your Visit: Post stroke debility Attending Provider: Dilia Fields Primary Care Provider: Becca Jacobs NP Instructions Patient Instructions: Vitamin B-12, Depression Affects Your Mind ..., Counseling for Depression, Dementia Safety Tips for Caregivers, Dementia Daily Care, Dementia Caregivers Plan Future, AFib Preventing Stroke Additional Instructions / Restrictions: 1. You were admitted to rehab because you had a stroke. You have a problem with the rhythm of your heart called atrial fibrillation. this causes little clots to form in the heart and then they can go out of the heart into the brain and cause strokes. To prevent any further strokes you have been started on an anticoagulant called Apixaban which you are taking twice a day. 2. A stroke can cause trouble with your thought processing and memory. You have other reasons that also contribute to poor memory. These other reasons include depression and B12 deficiency. B12 is a vitamin that is very important in maintaining good nervous system function. You are now on an antidepressant called sertraline (also called Zoloft). You are doing well on this medication and I have noticed a big improvement. You are not as fatigued and you are not wanting to sleep during the days. You smile a lot and you are much more talkative. Your thought processing has improved significantly on testing done by the speech therapist. You are very cooperative with therapy when they come and get you to work with them. We gave you 7 daily injections of B12 and you will get one a week for 4 weeks and then your doctor may want to start you on an oral B12 supplement or give you an injection of B12 once a month. 3. You blood sugars have been under excellent control while you have been on rehab and we have been able to get rid of Actos (pioglitazone). you were getting insulin at bedtime but, we have been able to get rid of this as well. you are going to be discharged on Metformin and Trulicity. If you continue with the same diet you have been on in the hospital I expect your blood sugars will stay well controlled on these 2 medications. Florinda bread is not your friend. Bread, pasta, pastries, rice, white potatoes and candy all have a lot of carbohydrates and it is carbohydrates that make the blood sugars go up. It is best to avoid these foods or eat them in small controlled quantities. 4. You memory is still not the greatest but, it has improved. We recommend that Leslie supervise you when you are setting up your pill boxes to make sure there are not any mistakes. Taking your medication exactly as directed is VERY IMPORTANT. 5. You were on a diuretic called Furosemide(also called Lasix) when you came to us. You are not very good at drinking enough fluid to keep you well hydration. Hydration is important to maintain good blood flow to the brain. You should drink enough fluids to keep you urine a pale yellow. If you start retaining water at home your weight will go up. I want you to weigh yourself every morning at home. Weigh with only your PJ's on every morning after urinating and write the number down. If you gain > 3 lbs in a couple days or greater than 5 lbs in a week then you should take a Lasix. 6. The pain in your legs you were having was due to nerve dysfunction. We call this neuropathy. You were started on a drug called Neurontin(also called Gabapentin). This medication treats nerve pain. You are doing well on only one dose a day and we give it to you at bedtime because it can make you sleepy. 7. I have changed some of your medications and gotten rid of a few. Take only the medications on the list that I give you at discharge. We will send a copy of the discharge instructions which includes the medications you are being discharged on to all your doctors. 8. It has been a pleasure to meet you Dilia and I am very happy with your progress on rehab. You will be getting additional therapy at home by [facility]. We have made you an appt with a neurologist to follow up with you for stroke and for memory loss. His name is Dr. Romain Hand and his office is in [place]. 9. I increased the dose of Levothyroxine you were taking from 0.75 mg to 0.88 mg daily. Your family doctor will want ot check the TSH and T4 in 4-6 weeks to make sure the dose is appropriate. 10. If you or Leslie has any questions after you leave rehab please do not hesitate to call me. OFFICE: [phone] CELL: [phone] Discharge Orders/Prescriptions Prescriptions: New losartan 50 mg Tablet 50 mg PO BID Qty: 60 0RF calcium carbonate [Oyster Shell Calcium 500] 500 mg calcium (1,250 mg) Tablet 500 mg PO BIDCM Qty: 60 0RF acetaminophen 500 mg Tablet 1,000 mg PO 1300,2100 Qty: 120 0RF levothyroxine 88 mcg Tablet 88 mcg PO 0600 Qty: 30 0RF ferrous sulfate [FeroSul] 325 mg (65 mg iron) Tablet 325 mg PO DAILY@1200 Qty: 30 0RF gabapentin 100 mg Capsule 200 mg PO 2000 Qty: 60 0RF Rx Instructions: 2 capsules at 8 PM nightly for nerve pain in the legs Mag 64 64 mg Tablet,Delayed Release (Dr/Ec) 128 mg PO BID Qty: 120 0RF Rx Instructions: 2 tabs twice a day Olopatadine Hcl 0 ml ophthalmic (eye) BID Qty: 0 0RF sertraline 50 mg Tablet 50 mg PO DAILY Qty: 30 0RF cyanocobalamin (vitamin B-12) 3,000 mcg capsule 3,000 mcg PO DAILY Qty: 30 0RF Continued meloxicam 15 mg tablet 15 mg PO DAILY 90 Days Qty: 90 Patient Comments: albuterol sulfate 1 PUFF inhaler 2 puff inhalation Q6H PRN PRN (Reason: Sob &/Or Wheezing) omeprazole 40 mg capsule,delayed release(DR/EC) 40 mg PO DAILY Patient Comments: TAKE 1 CAPSULE BY MOUTH EVERY DAY omega 7-imh-stf-fish oil [Fish Oil] 300-1,000 mg capsule 1 cap PO BID multivitamin [Daily Multi-Vitamin] Tablet 1 tab PO DAILY carvedilol [Coreg] 12.5 mg tablet 12.5 mg PO BID Qty: 60 0RF simvastatin 40 MG tablet 40 mg PO QHS Qty: 30 0RF metformin 1,000 mg tablet 1,000 mg PO BID Qty: 60 0RF furosemide 20 mg tablet 20 mg PO QDAY PRN (Reason: SWELLING) Qty: 10 0RF Rx Instructions: take if your weight goes up >3 lbs in a couple days or 5 lbs in a week apixaban 5 mg tablet 5 mg PO BID Qty: 60 0RF Trulicity 0.75 mg/0.5 mL pen injector 0.75 mg subcut QWEEK Qty: 2 0RF Patient Comments: INJECT 0.75 MG SUBCUTANEOUSLY ONE TIME A WEEK. Rx Instructions: Take on Sunday Discontinued cyclobenzaprine 10 mg tablet 10 mg PO TID PRN (Reason: MUSCLE SPASMS) melatonin 10 mg capsule 10 mg PO HS PRN (Reason: Insomnia) estradiol 0.01 % (0.1 mg/gram) cream 1 g vaginal 2XW Patient Comments: PLEASE SEE ATTACHED FOR DETAILED DIRECTIONS ferrous sulfate 325 mg (65 mg iron) tablet 325 mg PO DAILY levothyroxine 75 MCG tablet 75 mcg PO DAILY Patient Comments: thyroid potassium chloride 10 MEQ tablet extended release 20 meq PO DAILY Patient Comments: MAYBE 10 MEQ? pramipexole 0.125 mg tablet 0.125 mg PO QHS Patient Comments: TAKE 1-2 TABLETS BY MOUTH DAILY AT BEDTIME. loperamide [Anti-Diarrheal (loperamide)] 2 mg capsule 10 mg PO DAILY PRN (Reason: DIARRHEA) Novolin 70/30 U-100 Insulin 100 unit/mL (70-30) suspension 14 unit SUBCUT QHS pioglitazone [Actos] 45 mg tablet 45 mg PO DAILY calcium carbonate 600 mg calcium (1,500 mg) tablet 600 mg PO BID valsartan [Diovan] 160 mg tablet 160 mg PO BID duloxetine [Cymbalta] 30 mg capsule,delayed release(DR/EC) 30 mg PO DAILY vitamin B complex [B Complex-Vitamin B12] Tablet 1 tab PO DAILY Referrals / Follow Up: Patrick Duenas MD [Med Staff - Active Staff] - 12/28/23 11:00 am Romain Hand MD [Non-Staff] - 12/26/23 8:10 am (BRING ID AND MEDICATION LIST) Becca Jacobs HEAD REFRIGERATION ENGINEER, HEAD REFRIGERATION ENGINEER-C [Primary Care Provider] - 12/25/23 10:20 am Disposition Disposition (needs filled in before D/C Order can be placed): Home Health Service Charges/Coding Visit Charges Inpatient E&M: 83569 Disch Hosp >30min
[2023-12-21 17:28] LABS: Bedside Glucose 131 mg/dL (74-106)
[2023-12-21] MEDS: Gabapentin 100 MG Capsule 200 MG PO (20:42)
[2023-12-21 20:45] VITALS: BP 150/99; PULSE 88; RESP 16; TEMP 36.9; O2SAT 98
[2023-12-21] MEDS: Atorvastatin Calcium 20 MG Tablet PO (21:00)
[2023-12-21 21:14] LABS: Bedside Glucose 134 mg/dL (74-106)
[2023-12-22 04:08] LABS: Bedside Glucose 141 mg/dL (74-106)
[2023-12-22] MEDS: Levothyroxine 88 MCG Tablet PO (05:02)
[2023-12-22] MEDS: Menthol/Lanolin/Calamine/Znox 113 GM Tube 1 APPLIC TOPICAL (05:03)
[2023-12-22] MEDS: 0.9% Saline Lock 10 ML Syringe IV (05:03)
[2023-12-22] MEDS: 0.9% Normal Saline (1000mL) 1,000 ML 75 ML IV (06:31)
[2023-12-22 06:57] LABS: Bedside Glucose 146 mg/dL (74-106)
[2023-12-22 07:00] VITALS: BP 146/80; PULSE 95; RESP 19; TEMP 37.1; O2SAT 98
[2023-12-22] MEDS: Carvedilol 12.5 MG Tablet PO (08:20)
[2023-12-22] MEDS: Pantoprazole Sodium 20 MG Tablet PO (08:20)
[2023-12-22] MEDS: metFORMIN HCl 1,000 MG Tablet 1000 MG PO (08:20)
[2023-12-22] MEDS: Calcium (Elemental) 500 MG Tablet PO (08:20)
[2023-12-22] MEDS: Meloxicam 15 MG Tablet PO (08:20)
[2023-12-22] MEDS: Sertraline 50 MG Tablet PO (08:20)
[2023-12-22] MEDS: Losartan Potassium 50 MG Tablet PO (08:20)
[2023-12-22] MEDS: Magnesium Chloride 64 MG Delay Rel.Tablet 128 MG PO (08:20)
[2023-12-22] MEDS: APIXABAN 5 MG TABLET PO (08:21)
[2023-12-22] MEDS: OLOPATADINE HCL OPHTHALMIC (08:21)
[2023-12-22] MEDS: Ferrous Sulfate 325 MG Tablet PO (11:23)
[2023-12-22] MEDS: Acetaminophen 500 MG Tablet 1000 MG PO (11:24)
[2023-12-22 11:31] LABS: Bedside Glucose 140 mg/dL (74-106)
[2023-12-22 16:00] VITALS: BP 132/68; PULSE 69; RESP 17; TEMP 36.7; O2SAT 97
--- NOTE | 2023-12-22 16:00 | NURSING ---
Family given DC instruct and verbalized understanding. Education provided for htn, dm, stroke, and diet.
== END 2023-12-22 16:00 | disposition home health service (06) | DRG 57 ==
PROVIDERS: Admitting Provider Internal Medicine; PCP Registered Nurse; Visit Provider Internal Medicine
DX: I69.354 Hemiplegia and hemiparesis following cerebral infarction affecting left non-dominant side (principal); G40.209 Localization-related (focal) (partial) symptomatic epilepsy and epileptic syndromes with complex partial seizures, not intractable, without status epilepticus; I13.0 Hypertensive heart and chronic kidney disease with heart failure and stage 1 through stage 4 chronic kidney disease, or unspecified chronic kidney disease; N39.0 Urinary tract infection, site not specified; I42.8 Other cardiomyopathies; I50.42 Chronic combined systolic (congestive) and diastolic (congestive) heart failure; I48.20 Chronic atrial fibrillation, unspecified; E11.41 Type 2 diabetes mellitus with diabetic mononeuropathy; E11.22 Type 2 diabetes mellitus with diabetic chronic kidney disease; B96.20 Unspecified Escherichia coli [E. coli] as the cause of diseases classified elsewhere; D50.9 Iron deficiency anemia, unspecified; E03.9 Hypothyroidism, unspecified; N18.30 Chronic kidney disease, stage 3 unspecified; E11.40 Type 2 diabetes mellitus with diabetic neuropathy, unspecified; Z79.4 Long term (current) use of insulin; E11.59 Type 2 diabetes mellitus with other circulatory complications; I69.311 Memory deficit following cerebral infarction; J45.909 Unspecified asthma, uncomplicated; I69.392 Facial weakness following cerebral infarction; I25.10 Atherosclerotic heart disease of native coronary artery without angina pectoris; K21.9 Gastro-esophageal reflux disease without esophagitis; E78.00 Pure hypercholesterolemia, unspecified; E53.8 Deficiency of other specified B group vitamins; I87.2 Venous insufficiency (chronic) (peripheral); Z79.84 Long term (current) use of oral hypoglycemic drugs; Z79.899 Other long term (current) drug therapy; Z79.890 Hormone replacement therapy; G47.00 Insomnia, unspecified
CPT/HCPCS: 36415; 36600; 80048; 80053; 81001; 82607; 82803; 82962; 83735; 84100; 84439; 84443; 85014; 85018; 85025; 85027; 86340; 92507; 92523; 92526; 94668; 94762; 97110; 97112; 97116; 97129; 97130; 97162; 97166; 97530; 97535; J7030; A4216; J3420

== ENCOUNTER 2023-12-28 10:13 | Outpatient (RCR) | payer MEDICARE, OTHER, SELFPAY ==
[2023-12-28 11:04] LABS: Color, Urine Yellow (Yellow); Glucose, Dipstick Normal (Normal); Ketone-Dipstick 5 mg/dl (Negative); Leukocyte Esterase-Dipstick Negative /ul (Negative); Nitrite-Dipstick Negative (Negative); Occult Blood-Urine 10 /ul (Negative); Protein-Dipstick 15 mg/dl (Negative); Urine Bilirubin Dipstick Negative (Negative); Urine Clarity Clear (Clear); Urine Urobilinogen Normal (Normal); Urine pH 6.5 (5.0 - 8.0)
== END 2024-01-03 18:00 | disposition home or self-care (01) ==
LOC: HHLAB 10:13
PROVIDERS: PCP Registered Nurse; Visit Provider Family Medicine
DX: I69.392 Facial weakness following cerebral infarction (principal)
CPT/HCPCS: 81002; 87086

== ENCOUNTER 2024-01-29 09:49 | Outpatient (RCR) | payer MEDICARE, OTHER, SELFPAY ==
[2024-01-07 12:45] LABS: Vitamin B12 1649 pg/mL (211-911)
[2024-01-07 12:51] LABS: CRP < 2.90 mg/L (0.0-3.0); Thyroid Stim Hormone (TSH) 0.76 uIU/mL (0.358-3.74)
[2024-01-07 12:55] LABS: Erythrocyte Sedimentation Rate 12 mm/hr (0-30)
[2024-01-12 03:07] LABS: Arsenic 7245 1 ug/L (0-9); Lead, Blood < 1.0 ug/dL (0.0-3.4); Mercury, Blood 85324 < 1.0 ug/L (0.0-14.9)
[2024-01-29 10:06] LABS: Hematocrit 47.3 % (37-47); Hemoglobin 14.6 g/dL (12.0-15.0); Mean Corp Hgb Conc 30.9 g/dL (32-36); Mean Corpuscular Hgb 26.8 pg (27.0-32.0); Mean Corpuscular Volume 86.9 fL (81-99); Mean Platelet Vol. 11.3 fl (6.2-12.0); Platelet Count 220 K/mm3 (150-450); RBC Distribution Width CV 17.2 % (11.6-14.6); RBC Distribution Width SD 53.3 fl (35.1-43.9); Red Blood Count 5.44 M/mm3 (4.2-5.4); White Blood Count 10.3 K/mm3 (4.4-11.0)
[2024-01-29 10:25] LABS: ALB/GLOB Ratio 1.1 RATIO (0.9-2.4); AST(SGOT) 18 U/L (15-37); Alanine Aminotransfer ALT/SGPT 20 U/L (13-56); Albumin, Serum 3.5 g/dL (3.2-5.0); Alkaline Phosphatase 74 U/L (45-117); Anion Gap 8 (5-15); BUN 34 mg/dL (7-18); BUN/Creat Ratio 28.1 RATIO (10-20); Calcium,Total 9.2 mg/dL (8.5-10.1); Chloride 102 mmol/L (98-107); Creatinine, Serum 1.21 mg/dL (0.55-1.02); EST Glomerular Filtration Rate 45 mL/min (>60); Est Glom Filt Rate - Afr Amer 54 mL/min (>60); Globulin 3.1 g/dL (2.2-4.2); Glucose 192 mg/dL (74-106); Potassium 4.3 mmol/L (3.5-5.1); Protein, Total 6.6 g/dL (6.4-8.2); Sodium Level 139 mmol/L (136-145); Thyroid Stim Hormone (TSH) 0.93 uIU/mL (0.358-3.74)
== END 2024-02-02 18:00 | disposition home or self-care (01) ==
LOC: HHLAB 09:49
PROVIDERS: PCP Registered Nurse; Referring Provider Psychiatry & Neurology Neurology; Visit Provider Psychiatry & Neurology Neurology
DX: I63.9 Cerebral infarction, unspecified (principal); G93.40 Encephalopathy, unspecified; I69.392 Facial weakness following cerebral infarction; G40.209 Localization-related (focal) (partial) symptomatic epilepsy and epileptic syndromes with complex partial seizures, not intractable, without status epilepticus; I69.398 Other sequelae of cerebral infarction; R53.81 Other malaise; R53.1 Weakness; R41.89 Other symptoms and signs involving cognitive functions and awareness
CPT/HCPCS: 80053; 82140; 82175; 82248; 82607; 83655; 83825; 84443; 85027; 85652; 86140

== ENCOUNTER → 2024-02-01 | Outpatient (CLI) | payer MEDICARE, OTHER, SELFPAY ==
--- NOTE | 2024-02-01 12:50 | ECHOD_ITS ---
Reason For Study: Afib, Aflutter, MR Procedure This was a 2D Doppler, Color Flow transthoracic echocardiogram. Exam performed in department. Left Ventricle Normal LV size. The estimated ejection fraction is 40 %. There is mild to moderate global hypokinesis of the left ventricle. Right Ventricle Normal right ventricle. Normal systolic function. Atria The left atrium is mildly enlarged. The right atrium is severely enlarged. Mitral Valve Bileaflet diffuse mitral valve thickening. There is Mild focal posterior mitral annular calcification. Mild-Moderate (1-2+) posteriorly directed mitral valve insufficiency. Tricuspid Valve Normal tricuspid valve. Mild (1+) tricuspid valve insufficiency. Pulmonary artery systolic pressure is 29 mmHg. Aortic Valve Trisinus/trileaflet aortic valve. Pulmonic Valve Normal pulmonic valve. Great Vessels Normal aortic root. The pulmonary artery is normal size. Inferior vena cava collapse with respiration. Pericardium/Pleural No pericardial effusion. MMode/2D Measurements & Calculations LVIDd: 4.9 cm IVSd: 1.1 cm Ao root diam: 3.1 cm LVIDs: 3.7 cm LVPWd: 1.3 cm RVDd: 3.8 cm FS: 24.6 % LAV(MOD-bp): 125.6 ml LVAd ap4: 18.1 cm2 LVAd ap2: 22.4 cm2 LAV(MOD-bp) Indexed: 66.7 ml/m2 LVLd ap4: 5.4 cm LVLd ap2: 6.4 cm LAV(MOD-sp2): 107.9 ml EDV(MOD-sp4): 49.7 ml EDV(MOD-sp2): 66.3 ml LAV(MOD-sp4): 123.3 ml EDV(sp4-el): 51.7 ml EDV(sp2-el): 66.9 ml LVAs ap4: 13.8 cm2 LVAs ap2: 16.5 cm2 LVLs ap4: 5.2 cm LVLs ap2: 6.1 cm ESV(MOD-sp4): 31.1 ml ESV(MOD-sp2): 39.3 ml ESV(sp4-el): 31.4 ml ESV(sp2-el): 38.0 ml EF(MOD-sp4): 37.4 % EF(MOD-sp2): 40.7 % EF(sp4-el): 39.3 % SV(MOD-sp4): 18.6 ml SV(MOD-sp2): 26.9 ml SV(sp4-el): 20.3 ml LA dimension(2D): 5.2 cm LA A4 area: 33.8 cm2 RA A4 area: 23.6 cm2 TAPSE: 2.0 cm Doppler Measurements & Calculations MV E max chintan: 104.5 cm/sec Lat Peak E' Chintan: 8.5 cm/sec Med Peak E' Chintan: 5.6 cm/sec E/E' lat: 12.3 E/E' med: 18.6 Ao V2 max: 99.7 cm/sec LV V1 max: 77.1 cm/sec PA V2 max: 78.3 cm/sec Ao max P.0 mmHg LV V1 max P.4 mmHg Ao V2 mean: 79.2 cm/sec Ao mean P.7 mmHg Ao V2 VTI: 15.8 cm TR max chintan: 254.0 cm/sec TR max P.8 mmHg ECHO/Echo Complete Interpretation Summary Normal LV size. The estimated ejection fraction is 40 %. There is mild to moderate global hypokinesis of the left ventricle. Bileaflet diffuse mitral valve thickening. Mild-Moderate (1-2+) posteriorly directed mitral valve insufficiency. There is Mild focal posterior mitral annular calcification. Ordering Physician: Patrick Duenas Referring Physician: Becca Jacobs Performed By: Serena Meyer, RDCS, RVT
== END | disposition home or self-care (01) ==
LOC: CVS 12:49
PROVIDERS: PCP Registered Nurse; Referring Provider Internal Medicine Cardiovascular Disease; Visit Provider Internal Medicine Cardiovascular Disease
DX: I34.0 Nonrheumatic mitral (valve) insufficiency (principal)
CPT/HCPCS: 93306

== ENCOUNTER 2024-04-13 13:54 | Emergency (ER) | payer MEDICARE, OTHER, SELFPAY ==
[2024-04-13 13:55] VITALS: BP 124/88; PULSE 75; RESP 16; TEMP 36.4; O2SAT 96
[2024-04-13 13:57] VITALS: BP 124/88; PULSE 75; RESP 16; TEMP 36.4; O2SAT 95
--- NOTE | 2024-04-13 15:06 | EX.ED.DYSGE1 ---
HPI <KEATON Toro - Last Filed: 04/13/24 17:06> History of Present Illness Chief Complaint: Wound Narrative Narrative: Patient presenting today with a blister to her left hip that she has had for several weeks. Her daughter first noticed it today and decided to bring her in for evaluation. Patient reports that the area is not painful and has not been bothering her. She denies any fevers or chills or injury to the area. PFSH <KEATON Toro - Last Filed: 04/13/24 17:06> [facility] Medical History Cardiomyopathy CVA (cerebral vascular accident) Atrial fibrillation Obesity (BMI 30.0-34.9) Restless leg syndrome Hiatal hernia Chronic congestive heart failure Secondary pulmonary arterial hypertension Non-rheumatic tricuspid valve insufficiency Nonischemic cardiomyopathy GERD (gastroesophageal reflux disease) Iron deficiency anemia Depression Neuropathic pain Hip fracture Hypothyroidism Type 2 diabetes mellitus Osteoarthritis Asthma Essential (primary) hypertension Atherosclerosis of coronary artery of [place] heart without angina pectoris PVC's (premature ventricular contractions) Non-ST elevation (NSTEMI) myocardial infarction Acute respiratory failure Nonrheumatic mitral (valve) insufficiency PVT (paroxysmal ventricular tachycardia) Hyperlipidemia Home Medications ?Medication ?Instructions ?Recorded ?Last Taken ?Type albuterol sulfate 90 mcg/actuation 2 puff inhalation Q6H PRN PRN Sob 12/04/17 Unknown History aerosol inhaler &/Or Wheezing omeprazole 40 mg capsule,delayed 40 mg PO DAILY GERD 11/06/23 Unknown History release multivitamin (Daily Multi-Vitamin 1 tab PO DAILY supplement 12/05/23 Unknown History tablet) Olopatadine HCl 0 ml ophthalmic (eye) BID ##0 12/21/23 Unknown Rx acetaminophen 500 mg tablet 1,000 mg (2 x 500 mg) PO 1300,2100 12/21/23 Unknown Rx #120 tabs cyanocobalamin (vitamin B-12) 3,000 mcg PO DAILY #30 caps 12/21/23 Unknown Rx 3,000 mcg capsule dulaglutide 0.75 mg/0.5 mL 0.75 mg (0.5 mL) subcut QWEEK 12/21/23 12/03/23 Rx subcutaneous pen injector glucose #2 mL (Trulicity) ferrous sulfate 325 mg (65 mg 325 mg PO DAILY@1200 #30 tabs 12/21/23 Unknown Rx iron) tablet (FeroSul) gabapentin 100 mg capsule 200 mg (2 x 100 mg) PO 2000 #60 12/21/23 Unknown Rx caps levothyroxine 88 mcg tablet 88 mcg PO 0600 #30 tabs 12/21/23 Unknown Rx magnesium chloride 64 mg 128 mg (2 x 64 mg) PO BID #120 tabs 12/21/23 Unknown Rx (magnesium chloride) tablet,delayed release (Mag 64) sertraline 50 mg tablet 50 mg PO DAILY #30 tabs 12/21/23 Unknown Rx simvastatin 40 mg tablet 40 mg PO QHS CHOLESTEROL #30 tabs 12/21/23 Unknown Rx levetiracetam 500 mg tablet 500 mg PO BID 12/28/23 Unknown History apixaban 5 mg tablet 5 mg PO BID blood thinner #60 tabs 12/31/23 Unknown Rx carvedilol 25 mg tablet 25 mg PO BID #60 tabs 12/31/23 Unknown Rx furosemide 40 mg tablet (Lasix) 40 mg PO DAILY please adjust 01/29/24 Unknown Rx prepackaged meds #90 tabs losartan 50 mg tablet 50 mg PO BID #60 tabs 02/19/24 Unknown Rx calcium carbonate 200 mg PO BID 03/21/24 Unknown History Allergy/AdvReac Type Severity Reaction Status Date / Time No Known Allergies Allergy Verified 04/13/24 13:57 Family History Sister Asthma Colon cancer Diabetes Brother Cancer Throat cancer Father Prostate cancer Daughter Myocardial infarction Surgical History History of cataract extraction with lens replacement History of right hip replacement 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) History of left heart catheterization (LHC) (02/14/17) Social History household members: none housing: other details: Lives in a duplex number of children: 2 current occupational status: retired pets and animals: Yes (She has a black poodle named Mary Jane) pets and animals: dog(s) leisure activities: other history of recent travel: No Smoking Status: Never smoker alcohol intake: never diet: diabetic what type of physical activity do you participate in: none seatbelt use: always ROS <KEATON Toro - Last Filed: 04/13/24 17:06> ROS ED Constitutional Constitutional ED: Denies chills or fever(s) Cardiovascular Cardiovascular: Denies chest pain Respiratory/Chest Respiratory/Chest: Denies dyspnea Gastrointestinal Gastrointestinal: Denies abdominal pain, nausea or vomiting Musculoskeletal Musculoskeletal: Denies arthralgias Integumentary Reports other Details: wound Neurologic Neurologic: Denies weakness EXAM <KEATON Toro - Last Filed: 04/13/24 17:06> Physical Exam Const Vital Signs: 04/13/24 13:55 04/13/24 13:57 04/13/24 16:26 Temperature 97.6 F L 97.6 F L Temperature Source Temporal Temporal Pulse Rate 75 75 74 Respiratory Rate 16 16 16 Blood Pressure 124/88 H 124/88 H 130/78 H Blood Pressure Mean 100 100 95 Pulse Ox 96 95 99 Oxygen Delivery Method Room Air Room Air Room Air Positive well nourished, well developed and no apparent distress General Appearance ED: well developed HEENT Reports normocephalic and head/scalp atraumatic Mouth ED: Yes moist mucous membranes normal Eyes PERRL and EOMs intact bilaterally Neck full ROM and supple Chest Wall inspection of chest normal Resp normal respiratory effort and clear to auscultation bilaterally Cardio regular rate and regular rhythm GI non-tender and non-distended Palpation: soft Back/Spine normal ROM and normal to inspection Extremity normal to inspection and full ROM Neuro oriented x3, CN's II-XII intact bilaterally, moves all extremities, no focal motor deficits and no sensory deficits noted Sensorium / Orientation: awake and alert Psych mental status grossly normal and thought process normal Skin Skin Narrative: Blister to the left hip, no signs of infection, nontender, no purulent discharge. Full ROM to the left hip. <Dr. Margaux Amador DO - Last Filed: 04/14/24 17:27> Physical Exam Const Vital Signs: 04/13/24 13:55 04/13/24 13:57 04/13/24 16:26 Temperature 97.6 F L 97.6 F L Temperature Source Temporal Temporal Pulse Rate 75 75 74 Respiratory Rate 16 16 16 Blood Pressure 124/88 H 124/88 H 130/78 H Blood Pressure Mean 100 100 95 Pulse Ox 96 95 99 Oxygen Delivery Method Room Air Room Air Room Air [facility] <KEATON Toro - Last Filed: 04/13/24 17:06> [facility] Narrative Medical decision making narrative: Patient presenting with a nonpainful blister to her left hip that she has had for a few weeks. Her daughter takes care of her and just noticed it today for the first time. Patient does sleep on her left side every night, this is likely a pressure sore. This does not look infected and is not causing patient any pain. She has full range of motion to the left hip without any pain. I encouraged that she sleep on her right side or back and avoid putting pressure on the area. I have given her a dermatology referral. I will give her bacitracin ointment to use if the blister pops to help prevent infection. Wound was bandaged here. Patient discharged home in stable condition. <Dr. Margaux Amador DO - Last Filed: 04/14/24 17:27> [facility] Narrative Medical decision making narrative: Patient presenting with a nonpainful blister to her left hip that she has had for a few weeks. Her daughter takes care of her and just noticed it today for the first time. Patient does sleep on her left side every night, this is likely a pressure sore. This does not look infected and is not causing patient any pain. She has full range of motion to the left hip without any pain. I encouraged that she sleep on her right side or back and avoid putting pressure on the area. I have given her a dermatology referral. I will give her bacitracin ointment to use if the blister pops to help prevent infection. Wound was bandaged here. Patient discharged home in stable condition. I have personally performed a face to face assessment of the patient and have reviewed the ALEXANDRU Note. I performed a substantive portion of the visit including all aspects of the following. My telles findings include: History is Is an 88-year-old female who with history of stroke and poor mobility/activity at baseline presenting with concern of blister/wound on her left hip. Patient states it has been there for couple weeks but daughter just noticed it today. Apparently patient lays on the side quite frequently throughout the day and at night and daughter is quite concerned that this could be a pressure wound. On exam patient has a remote surgical incision over her left hip consistent with a prior hip surgery. At the distal aspect of the incision there is approximately 1 cm in circumference fluid-filled blister present. No active drainage. Seems to be filled with serous fluid. There is some mild associated erythema but this seems more consistent with irritation and not cellulitic in nature. It is mobile and does not seem to track deep. She does not have any associated range of motion pain of the hip. No other wounds are appreciated. I suspect this is a pressure blister/sore. It does not appear secondarily infected. Daughter was counseled on wound care for it and encouraged to follow-up with dermatology as this is a unique appearance of pressure wound. At this time I do not think requires any imaging and she does not have any other symptoms or systemic symptoms. No other rash and no lesions in the mucosal membranes. Daughter and patient agree with plan of care. Discharged home in stable condition. Other additions or changes: [None] Discharge Plan Triage Chief Complaint: Wound ED Midlevel Provider: Tasha Arzola ED Provider: Margaux Amador Dx/Rx/DC Orders Clinical Impression: Pressure sore of hip Instructions: ED Simple Pressure Injury Prescriptions: No Action levetiracetam 500 mg tablet 500 mg PO BID calcium carbonate 200 mg calcium (500 mg) tablet,chewable 200 mg PO BID albuterol sulfate 1 PUFF inhaler 2 puff inhalation Q6H PRN PRN (Reason: Sob &/Or Wheezing) omeprazole 40 mg capsule,delayed release(DR/EC) 40 mg PO DAILY Patient Comments: TAKE 1 CAPSULE BY MOUTH EVERY DAY multivitamin [Daily Multi-Vitamin] Tablet 1 tab PO DAILY acetaminophen 500 mg Tablet 1,000 mg PO 1300,2100 Qty: 120 0RF levothyroxine 88 mcg Tablet 88 mcg PO 0600 Qty: 30 0RF ferrous sulfate [FeroSul] 325 mg (65 mg iron) Tablet 325 mg PO DAILY@1200 Qty: 30 0RF gabapentin 100 mg Capsule 200 mg PO 2000 Qty: 60 0RF Rx Instructions: 2 capsules at 8 PM nightly for nerve pain in the legs Mag 64 64 mg Tablet,Delayed Release (Dr/Ec) 128 mg PO BID Qty: 120 0RF Rx Instructions: 2 tabs twice a day Olopatadine Hcl 0 ml ophthalmic (eye) BID Qty: 0 0RF sertraline 50 mg Tablet 50 mg PO DAILY Qty: 30 0RF cyanocobalamin (vitamin B-12) 3,000 mcg capsule 3,000 mcg PO DAILY Qty: 30 0RF simvastatin 40 MG tablet 40 mg PO QHS Qty: 30 0RF Trulicity 0.75 mg/0.5 mL pen injector 0.75 mg subcut QWEEK Qty: 2 0RF Patient Comments: INJECT 0.75 MG SUBCUTANEOUSLY ONE TIME A WEEK. Rx Instructions: Take on Sunday carvedilol 25 mg tablet 25 mg PO BID Qty: 60 11RF Rx Instructions: must administer with a meal/food apixaban 5 mg tablet 5 mg PO BID Qty: 60 11RF furosemide [Lasix] 40 mg tablet 40 mg PO DAILY Qty: 90 3RF losartan 50 mg tablet 50 mg PO BID Qty: 60 11RF Primary Care Provider: Becca Jacobs NP Referrals: Alysia Herrera MD [Non-Staff] - 1 Week Becca Jacobs NP, [facility] [Primary Care Provider] - Activity Restrictions/Additional Instructions: You can apply the bacitracin ointment twice daily if the blister ruptures to prevent infection. Try to avoid sleeping on your left side. I have also given you a dermatology referral to follow-up with. Print Language: Brazilian Disposition Disposition: Home, Self Care Discharge Date/Time: 04/13/24 16:29
[2024-04-13 16:26] VITALS: BP 130/78; PULSE 74; RESP 16; O2SAT 99
[2024-04-13] MEDS: BACITRACIN 15 GM Tube 1 APPLIC TOPICAL (16:27)
== END 2024-04-13 16:29 | disposition home or self-care (01) ==
PROVIDERS: Emergency Provider Emergency Medicine; PCP Registered Nurse; Visit Provider Emergency Medicine
DX: L89.209 Pressure ulcer of unspecified hip, unspecified stage (principal); I48.91 Unspecified atrial fibrillation; I10 Essential (primary) hypertension; I25.2 Old myocardial infarction; E03.9 Hypothyroidism, unspecified; E78.5 Hyperlipidemia, unspecified; D50.9 Iron deficiency anemia, unspecified; Z86.73 Personal history of transient ischemic attack (TIA), and cerebral infarction without residual deficits
CPT/HCPCS: 99282

== ENCOUNTER 2024-10-16 20:17 | Emergency (ER) | payer MEDICARE, OTHER, SELFPAY ==
[2024-10-16 20:19] VITALS: BP 121/62; PULSE 106; RESP 18; TEMP 36.7; O2SAT 92
[2024-10-16 20:22] VITALS: BP 121/67; PULSE 51; RESP 16; TEMP 36.4; O2SAT 95
[2024-10-16 20:27] VITALS: BMI 35.6
[2024-10-16 21:22] VITALS: BP 124/72; PULSE 76; RESP 16; TEMP 36.4; O2SAT 98
[2024-10-16 21:25] LABS: Bacteria 0 SEEN /hpf (None Seen); Mucous, Urine 0 SEEN /hpf (<or=2+); Red Blood Cells-Urine 0 SEEN /hpf (0-5); White Blood Cells 0 SEEN /hpf (0-5)
[2024-10-16 21:27] LABS: Absolute Lymphocyte Count 1.51 X10^3/uL (0.83-4.51); Absolute Neutrophil Count 8.7 X10^3/uL (2.0-7.7); Basophil# 0.08 X10^3/uL; Basophil% 0.7 % (0-1); Eosinophil# 0.31 X10^3/uL; Eosinophils% 2.7 % (0-5); Hemoglobin 14.5 g/dL (12.0-15.0); Lymphocyte # 1.51 X10^3/ul (0.83-4.51); Lymphocyte % 13.2 % (19-41); Mean Corpuscular Hgb 31.2 pg (27.0-32.0); Mean Corpuscular Volume 94.6 fL (81-99); Mean Platelet Vol. 9.8 fl (6.2-12.0); NRBC Flagged by Analyzer 0 % (0-5); Neutrophil # 8.68 X10^3/uL (2.7-7.7); Neutrophil % 75.8 % (47-70); Platelet Count 342 K/mm3 (150-450); RBC Distribution Width CV 12.3 % (11.6-14.6); Red Blood Count 4.65 M/mm3 (4.2-5.4); White Blood Count 11.5 K/mm3 (4.4-11.0)
--- NOTE | 2024-10-16 21:37 | EDS_ITS ---
HPI History of Present Illness Chief Complaint: Complaint Informant: patient and family (Daughter) Narrative Narrative: 89-year-old female presenting to the emergency room out of concern for UTI. Daughter states that the patient is currently on Augmentin for a upper respiratory infection with cough. She is also per the home list on nitrofurantoin as a daily medicine. Daughter notes that she seemed more weaker than normal. She has not had much of an appetite today. She has had urinary frequency. No reported fevers. Daughter states she did a home test for UTI and it was positive they went to urgent care and had difficulty obtaining a specimen eventually came here. Daughter notes the patient has been having diarrhea since being on the Augmentin. [facility] Medical History Cardiomyopathy CVA (cerebral vascular accident) Atrial fibrillation Obesity (BMI 30.0-34.9) Restless leg syndrome Hiatal hernia Chronic congestive heart failure Secondary pulmonary arterial hypertension Non-rheumatic tricuspid valve insufficiency Nonischemic cardiomyopathy GERD (gastroesophageal reflux disease) Iron deficiency anemia Depression Neuropathic pain Hip fracture Hypothyroidism Type 2 diabetes mellitus Osteoarthritis Asthma Essential (primary) hypertension Atherosclerosis of coronary artery of [place] heart without angina pectoris PVC's (premature ventricular contractions) Non-ST elevation (NSTEMI) myocardial infarction Acute respiratory failure Nonrheumatic mitral (valve) insufficiency PVT (paroxysmal ventricular tachycardia) Hyperlipidemia Home Medications ?Medication ?Instructions ?Recorded ?Last Taken ?Type albuterol sulfate 90 mcg/actuation 2 puff inhalation Q6H PRN PRN Sob 12/04/17 Unknown History aerosol inhaler &/Or Wheezing omeprazole 40 mg capsule,delayed 40 mg PO DAILY GERD 11/06/23 Unknown History release multivitamin (Daily Multi-Vitamin 1 tab PO DAILY supplement 12/05/23 Unknown History tablet) Olopatadine HCl 0 ml ophthalmic (eye) BID ##0 12/21/23 Unknown Rx acetaminophen 500 mg tablet 1,000 mg (2 x 500 mg) PO 1300,2100 12/21/23 Unknown Rx #120 tabs cyanocobalamin (vitamin B-12) 3,000 mcg PO DAILY #30 caps 12/21/23 Unknown Rx 3,000 mcg capsule dulaglutide 0.75 mg/0.5 mL 0.75 mg (0.5 mL) subcut QWEEK 12/21/23 12/03/23 Rx subcutaneous pen injector glucose #2 mL (Trulicity) ferrous sulfate 325 mg (65 mg 325 mg PO DAILY@1200 #30 tabs 12/21/23 Unknown Rx iron) tablet (FeroSul) gabapentin 100 mg capsule 200 mg (2 x 100 mg) PO 2000 #60 12/21/23 Unknown Rx caps levothyroxine 88 mcg tablet 88 mcg PO 0600 #30 tabs 12/21/23 Unknown Rx sertraline 50 mg tablet 50 mg PO DAILY #30 tabs 12/21/23 Unknown Rx levetiracetam 500 mg tablet 500 mg PO BID 12/28/23 Unknown History apixaban 5 mg tablet 5 mg PO BID blood thinner #60 tabs 12/31/23 Unknown Rx carvedilol 25 mg tablet 25 mg PO BID #60 tabs 12/31/23 Unknown Rx furosemide 40 mg tablet (Lasix) 40 mg PO DAILY please adjust 01/29/24 Unknown Rx prepackaged meds #90 tabs losartan 50 mg tablet 50 mg PO BID #60 tabs 02/19/24 Unknown Rx calcium carbonate 200 mg PO BID 03/21/24 Unknown History simvastatin 40 mg tablet 40 mg PO QHS CHOLESTEROL #90 tabs 07/25/24 Unknown Rx amoxicillin 875 mg-potassium 1 tab PO BID 10/16/24 Unknown History clavulanate 125 mg tablet apixaban 5 mg tablet (Eliquis) 5 mg PO BID 10/16/24 Unknown History benzonatate 100 mg capsule 100 mg PO TID PRN PRN cough 10/16/24 Unknown History magnesium chloride 64 mg 128 mg PO DAILY 10/16/24 Unknown History (magnesium chloride) tablet,delayed release (Mag 64) Allergy/AdvReac Type Severity Reaction Status Date / Time No Known Allergies Allergy Verified 10/16/24 20:23 Family History Sister Asthma Colon cancer Diabetes Brother Cancer Throat cancer Father Prostate cancer Daughter Myocardial infarction Surgical History History of cataract extraction with lens replacement History of right hip replacement 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) History of left heart catheterization (LHC) (02/14/17) Social History household members: none housing: other details: Lives in a duplex number of children: 2 current occupational status: retired pets and animals: Yes (She has a black poodle named Mary Jane) pets and animals: dog(s) leisure activities: other history of recent travel: No Smoking Status: Never smoker alcohol intake: never diet: diabetic what type of physical activity do you participate in: none seatbelt use: always ROS ROS ED ROS Narrative Generally weak Constitutional Constitutional ED: Denies chills or weight loss Eyes Eyes: Denies change in vision or diplopia ENT ENT ED: Denies ear pain, rhinorrhea or sore throat Cardiovascular Cardiovascular: Denies chest pain, orthopnea, palpitations or racing heartbeat Respiratory/Chest Respiratory/Chest: Denies cough, dyspnea or orthopnea Gastrointestinal Gastrointestinal: Reports diarrhea; Denies abdominal pain Genitourinary Genitourinary ED: Reports urinary frequency; Denies dysuria or hematuria Musculoskeletal Musculoskeletal: Denies arthralgias or myalgias Integumentary Denies abscess or rash Neurologic Neurologic: Denies headache(s) or weakness Psychiatric Psychiatric: Denies anxiety, depression, suicidal ideation or suicidal thoughts Endocrine Endocrinology: Denies polydipsia, polyphagia or polyuria Allergic/Immunologic Allergic/Immunologic ED: Denies mouth swelling, tongue swelling or urticaria EXAM Physical Exam Const Vital Signs: 10/16/24 20:19 10/16/24 20:22 10/16/24 21:22 Temperature 98.0 F 97.6 F L 97.6 F L Temperature Source Temporal Oral Oral Pulse Rate 106 H 51 L 76 Respiratory Rate 18 16 16 Blood Pressure 121/62 H 121/67 H 124/72 H Blood Pressure Mean 81 85 89 Pulse Ox 92 95 98 Oxygen Delivery Method Room Air Room Air Room Air Positive well nourished and well developed General Appearance ED: well developed HEENT Reports normocephalic, head/scalp atraumatic and moist mucous membranes Eyes PERRL and EOMs intact bilaterally Neck no lymphadenopathy, supple and no JVD Resp normal respiratory effort and clear to auscultation bilaterally Cardio no murmurs Rhythm: abnormal rhythm irregularly irregular (Heart rate ranges from 60-100) GI normal to inspection, nondistended, normoactive bowel sounds and non-tender Palpation: soft Back/Spine no CVA tenderness and normal ROM Extremity normal to inspection General Extremety ED: Negative for edema General Extremity: Negative for edema Neuro oriented x3 and CN's II-XII intact bilaterally Sensorium / Orientation: alert Motor Exam: strength 5/5 throughout Psych mental status grossly normal Mood & Affect: Negative for depressed or tearful Skin no rashes or lesions noted and no wounds MDM MDM MDM Narrative Medical decision making narrative: Differential diagnosis includes but not limited to UTI electrolyte abnormality dehydration TONY antibiotic-associated diarrhea pneumonia Patient's white count nonspecifically elevated 11.5 BMP within normal limits gl ucose noted to be elevated to 29. Creatinine 1.30 near baseline BUN of 18 anion gap for serum CO2 33. Normal LFTs. My independent interpretation of the chest x-ray is no acute process. Urinalysis is normal. At this point patient appears clinically well. I do not see anything on the laboratory workup would recommend the patient continue her antibiotics continue to hydrate and follow-up with her doctor return if worsening History & Record Review Discussion w/independent historian: Patient and Family Lab Data Attestation: I reviewed the patient's lab results. Labs: Laboratory Results - last 24 hr 10/16/24 10/16/24 20:59 21:10 WBC 11.5 H RBC 4.65 Hgb 14.5 Hct 44.0 MCV 94.6 MCH 31.2 MCHC 33.0 RDW Std Deviation 42.0 RDW Coeff of Bhupinder 12.3 Plt Count 342 MPV 9.8 Immature Gran % (Auto) 0.600 Neut % (Auto) 75.8 H Lymph % (Auto) 13.2 L [place] % (Auto) 7.0 Eos % (Auto) 2.7 Baso % (Auto) 0.7 Absolute Neuts (auto) 8.7 H Absolute Lymphs (auto) 1.51 Nucleated RBC % 0 Sodium 140 Potassium 3.7 Chloride 103 Carbon Dioxide 33.0 H Anion Gap 4 L BUN 18 Creatinine 1.30 H Estim Creat Clear Calc 35.14 Est GFR (MDRD) Af Amer 50 L Est GFR (MDRD) Non-Af 41 L BUN/Creatinine Ratio 13.8 Glucose 229 H Calcium 9.2 Total Bilirubin 0.40 Direct Bilirubin 0.15 AST 16 ALT 15 Alkaline Phosphatase 107 Total Protein 6.7 Albumin 2.9 L Globulin 3.8 Lipase 36 Urine Color Yellow Urine Clarity Clear Urine pH 5.[address] 1.015 Urine Protein Negative Urine Glucose (UA) Normal Urine Ketones Negative Urine Occult Blood Negative Urine Nitrite Negative Urine Bilirubin Negative Urine Urobilinogen Normal Ur Leukocyte Esterase Negative Urine RBC 0 SEEN Urine WBC 0 SEEN Ur Squamous Epith Cells 0-5 SEEN Urine Bacteria 0 SEEN Urine Mucus 0 SEEN Discharge Plan Triage Chief Complaint: Complaint ED Provider: Benja Burgos Dx/Rx/DC Orders Clinical Impression: Fatigue, Diarrhea, URI (upper respiratory infection) Prescriptions: No Action levetiracetam 500 mg tablet 500 mg PO BID calcium carbonate 200 mg calcium (500 mg) tablet,chewable 200 mg PO BID albuterol sulfate 1 PUFF inhaler 2 puff inhalation Q6H PRN PRN (Reason: Sob &/Or Wheezing) omeprazole 40 mg capsule,delayed release(DR/EC) 40 mg PO DAILY Patient Comments: TAKE 1 CAPSULE BY MOUTH EVERY DAY multivitamin [Daily Multi-Vitamin] Tablet 1 tab PO DAILY acetaminophen 500 mg Tablet 1,000 mg PO 1300,2100 Qty: 120 0RF levothyroxine 88 mcg Tablet 88 mcg PO 0600 Qty: 30 0RF ferrous sulfate [FeroSul] 325 mg (65 mg iron) Tablet 325 mg PO DAILY@1200 Qty: 30 0RF gabapentin 100 mg Capsule 200 mg PO 1999 Qty: 60 0RF Rx Instructions: 2 capsules at 8 PM nightly for nerve pain in the legs Olopatadine Hcl 0 ml ophthalmic (eye) BID Qty: 0 0RF sertraline 50 mg Tablet 50 mg PO DAILY Qty: 30 0RF cyanocobalamin (vitamin B-12) 3,000 mcg capsule 3,000 mcg PO DAILY Qty: 30 0RF Trulicity 0.75 mg/0.5 mL pen injector 0.75 mg subcut QWEEK Qty: 2 0RF Patient Comments: INJECT 0.75 MG SUBCUTANEOUSLY ONE TIME A WEEK. Rx Instructions: Take on Sunday benzonatate 100 mg capsule 100 mg PO TID PRN PRN (Reason: cough) amoxicillin-pot clavulanate 875-125 mg tablet 1 tab PO BID Eliquis 5 mg tablet 5 mg PO BID magnesium chloride [Mag 64] 64 mg Tablet,Delayed Release (Dr/Ec) 128 mg PO DAILY Rx Instructions: 2 tabs twice a day carvedilol 25 mg tablet 25 mg PO BID Qty: 60 11RF Rx Instructions: must administer with a meal/food apixaban 5 mg tablet 5 mg PO BID Qty: 60 11RF furosemide [Lasix] 40 mg tablet 40 mg PO DAILY Qty: 90 3RF losartan 50 mg tablet 50 mg PO BID Qty: 60 11RF simvastatin 40 mg tablet 40 mg PO QHS Qty: 90 3RF Primary Care Provider: Becca Jacobs NP Referrals: Becca Jacobs NP, NITROCELLULOSE OPERATOR-C [Primary Care Provider] - As Needed Print Language: Urdu Disposition Disposition: Home, Self Care
--- NOTE | 2024-10-16 21:40 | RAD_ITS ---
STUDY: X-RAY CHEST REASON FOR EXAM: Female, 89 years old. cough TECHNIQUE: Single frontal view of the chest. COMPARISON: May 01, 2034. FINDINGS: Possible developing nodule left upper lobe. There is no demonstrated pleural abnormality. Cardiomegaly. Calcific mitral valve disease. Normal mediastinum and erik. Normal visualized pulmonary arteries. Normal visualized aortic arch and descending thoracic aorta. Normal visualized thoracic spine. Normal visualized ribs, clavicles, and shoulders. There is no demonstrated abnormality of the visualized soft tissue structures of the upper abdomen. RAD/Chest 1 View (Portable) IMPRESSION: Possible new nodule left upper lobe. Recommend CT chest with IV contrast. Otherwise no acute disease. Electronically Signed: Jaxson Richey MD at 22:33 EST ,
[2024-10-16 21:42] LABS: Color, Urine Yellow (Yellow); Glucose, Dipstick Normal (Normal); Ketone-Dipstick Negative (Negative); Leukocyte Esterase-Dipstick Negative /ul (Negative); Nitrite-Dipstick Negative (Negative); Occult Blood-Urine Negative /ul (Negative); Protein-Dipstick Negative (Negative); Specific Gravity, Urine 1.015 (1.002-1.030); Urine Bilirubin Dipstick Negative (Negative); Urine Clarity Clear (Clear); Urine Urobilinogen Normal (Normal)
[2024-10-16 21:45] LABS: AST(SGOT) 16 U/L (15-37); Alanine Aminotransfer ALT/SGPT 15 U/L (13-56); Albumin, Serum 2.9 g/dL (3.2-5.0); Alkaline Phosphatase 107 U/L (45-117); Anion Gap 4 (5-15); BUN 18 mg/dL (7-18); BUN/Creat Ratio 13.8 RATIO (10-20); Bilirubin, Direct 0.15 mg/dL (0.00-0.30); Calcium,Total 9.2 mg/dL (8.5-10.1); Chloride 103 mmol/L (98-107); EST Glomerular Filtration Rate 41 mL/min (>60); Est Glom Filt Rate - Afr Amer 50 mL/min (>60); Estimated Creatinine Clearance 35.14 ml/min; Globulin 3.8 g/dL (2.2-4.2); Glucose 229 mg/dL (74-106); Lipase 36 U/L (13-75); Potassium 3.7 mmol/L (3.5-5.1); Protein, Total 6.7 g/dL (6.4-8.2); Sodium Level 140 mmol/L (136-145)
[2024-10-16 21:50] LABS: Squamous Epithelial Cells - UA 0-5 SEEN /hpf (5-10)
[2024-10-16 22:00] VITALS: BP 125/93; PULSE 98; RESP 16; TEMP 36.4; O2SAT 95
[2024-10-16 22:14] VITALS: BP 125/93; PULSE 98; RESP 16; TEMP 36.4; O2SAT 95
== END 2024-10-16 22:21 | disposition home or self-care (01) ==
PROVIDERS: Emergency Provider Emergency Medicine; PCP Registered Nurse; Referring Provider Emergency Medicine; Visit Provider Emergency Medicine
DX: R53.83 Other fatigue (principal); I11.0 Hypertensive heart disease with heart failure; I50.9 Heart failure, unspecified; I42.8 Other cardiomyopathies; E11.40 Type 2 diabetes mellitus with diabetic neuropathy, unspecified; J06.9 Acute upper respiratory infection, unspecified; R19.7 Diarrhea, unspecified; I25.10 Atherosclerotic heart disease of native coronary artery without angina pectoris; R35.0 Frequency of micturition; Z86.73 Personal history of transient ischemic attack (TIA), and cerebral infarction without residual deficits; I25.2 Old myocardial infarction; E78.5 Hyperlipidemia, unspecified; E03.9 Hypothyroidism, unspecified; R05.9 Cough, unspecified
CPT/HCPCS: 99283; 71045; 80048; 80076; 81001; 83690; 85025; 87086

== ENCOUNTER 2024-10-17 18:02 | Inpatient (IN) | payer MEDICARE, OTHER, SELFPAY ==
[2024-10-17] VITALS (14 sets, daily range): BP systolic 87–116; BP diastolic 61–77; PULSE 101–122; RESP 16–26; TEMP 36.7–36.8; O2SAT 89–98; BMI 33.3; BMI 32.7
--- NOTE | 2024-10-17 18:19 | CT_ITS ---
EXAM: CT CHEST, ABDOMEN AND PELVIS WITH INTRAVENOUS CONTRAST CLINICAL INDICATION: cough/abdominal pain weakness. Diabetes. TECHNIQUE: Helically acquired images were obtained of the chest, abdomen and pelvis with intravenous contrast. This CT exam was performed using one or more of the following dose reduction techniques: automated exposure control, adjustment of the mA and/or kV according to patient size, and/or use of iterative reconstruction technique. CONTRAST: IV 75mL Isovue-370 RADIATION DOSE: CTDIvol = 21.93 mGy, DLP = 1920.78 mGy-cm COMPARISON: No relevant prior studies available. FINDINGS: CHEST: LUNGS AND PLEURAL SPACES: Hyperexpansion of the lungs consistent with COPD Ill-defined pulmonary opacities in the right apex, and especially in both lower lobes, worse on the left. Findings are consistent with infiltrates from inflammatory process/pneumonia along with probable small areas of atelectasis. Very small left pleural effusion. No definite mass. HEART: Moderate cardiomegaly. No pericardial effusion. MEDIASTINUM: Unremarkable. No mediastinal or hilar adenopathy. Esophagus is unremarkable. No hiatal hernia. THYROID: Unremarkable. No thyroid lesions. ABDOMEN: LIVER: There is hepatomegaly. No focal liver mass. GALLBLADDER AND BILE DUCTS: Distended gallbladder with at least one small stone. No wall thickening. No intra- or extrahepatic biliary ductal dilation. PANCREAS: Unremarkable. No focal cystic or solid mass. SPLEEN: Unremarkable. Normal size without focal cystic or solid mass. ADRENALS: Unremarkable. No nodules. KIDNEYS AND URETERS: No acute abnormality. Normal renal size and position. No hydronephrosis. No stones STOMACH AND BOWEL: Evaluation of the GI tract is limited by absence of oral contrast. Small hiatal hernia. Cannot exclude stomach wall thickening. No dilated loops of bowel or evidence for obstruction. Cannot exclude segmental thickening of the orta of the small or large bowel. Cannot exclude enteritis or colitis. Moderate diffuse fecal retention. Diverticulosis without definite diverticulitis. Appendix within normal limits. PELVIS: APPENDIX: No evidence of acute appendicitis. BLADDER: Unremarkable. REPRODUCTIVE: Atrophic uterus. Pessary in place. CHEST, ABDOMEN and PELVIS: INTRAPERITONEAL SPACE: Unremarkable. No ascites or other fluid collection. No free air. BONES/JOINTS: Bilateral incompletely visualized hip arthroplasties, grossly satisfactory appearance. Compression fracture of L1 appears old. Degenerative changes throughout the spine. No definite acute fractures. No suspicious lytic or blastic abnormality. SOFT TISSUES: Unremarkable. No discrete abdominal or pelvic wall hernia. VASCULATURE: Calcified plaque of the aortic. Aorta is non-dilated. No aortic dissection. No obvious central pulmonary embolism although this study was not performed with the pulmonary embolism protocol. LYMPH NODES: Unremarkable. No enlarged lymph nodes. CT/CT Chest, Abd, Pel w/Contrast IMPRESSION: 1. Multifocal infiltrates in both lungs most consistent with pneumonia. 2. Cholelithiasis. Electronically Signed: Cedric Da Silva MD at 20:35 EST ,
--- NOTE | 2024-10-17 18:20 | EKG12_ITS ---
Test Reason : DYSRHYTHMIA Blood Pressure : */* mmHG Vent. Rate : 109 BPM Atrial Rate : * BPM P-R Int : * ms QRS Dur : 100 ms QT Int : 372 ms P-R-T Axes : * 21 152 degrees QTcB Int : 500 ms Atrial fibrillation with rapid ventricular response Septal infarct , age undetermined ST & T wave abnormality, consider lateral ischemia Abnormal ECG Confirmed by DAVIDE DIXON, ARA ([id number]), editor book JEREMIAH SALCIDO ([id number]) on 10/22/2024 1:35:00 P M Referred By: Confirmed By: ARA AUGUSTINE MD
--- NOTE | 2024-10-17 18:26 | EX.ED.DYSGE1 ---
HPI <MAK Alfred - Last Filed: 10/17/24 20:49> History of Present Illness Chief Complaint: Weakness Narrative Narrative: Patient is an 89-year-old female lives at home with her daughter. Patient has history of CVA, atrial fibrillation on Eliquis, CHF, cardiomyopathy who presents to the emerged department for ongoing weakness. Patient is currently on Augmentin for upper respiratory tract infection, was seen here yesterday for weakness, concern for UTI. Patient had a negative workup, and was discharged home. Today, the patient states she feels more ill-appearing, she states she is more weak and cannot get around, here for evaluation. Per the patient, she is having more abdominal pain today however she is unsure if this is from coughing. Patient does have some more shortness of breath today. PFSH <MAK Alfred - Last Filed: 10/17/24 20:49> [facility] Medical History (Updated 10/17/24 @ 23:[address] Thaddeus Rand DO) Diabetes Osteoporosis Congestive heart failure (CHF) Hypertension Dementia Cardiomyopathy CVA (cerebral vascular accident) Atrial fibrillation Obesity (BMI 30.0-34.9) Restless leg syndrome Hiatal hernia Chronic congestive heart failure Secondary pulmonary arterial hypertension Non-rheumatic tricuspid valve insufficiency Nonischemic cardiomyopathy GERD (gastroesophageal reflux disease) Iron deficiency anemia Depression Neuropathic pain Hip fracture Hypothyroidism Type 2 diabetes mellitus Osteoarthritis Asthma Essential (primary) hypertension Atherosclerosis of coronary artery of [place] heart without angina pectoris PVC's (premature ventricular contractions) Non-ST elevation (NSTEMI) myocardial infarction Acute respiratory failure Nonrheumatic mitral (valve) insufficiency PVT (paroxysmal ventricular tachycardia) Hyperlipidemia Home Medications ?Medication ?Instructions ?Recorded ?Last Taken ?Type albuterol sulfate 90 mcg/actuation 2 puff inhalation Q6H PRN PRN Sob 12/04/17 Unknown History aerosol inhaler &/Or Wheezing omeprazole 40 mg capsule,delayed 40 mg PO DAILY GERD 11/06/23 Unknown History release multivitamin (Daily Multi-Vitamin 1 tab PO DAILY supplement 12/05/23 Unknown History tablet) Olopatadine HCl 0 ml ophthalmic (eye) BID ##0 12/21/23 Unknown Rx acetaminophen 500 mg tablet 1,000 mg (2 x 500 mg) PO 1300,2100 12/21/23 10/16/24 Rx #120 tabs cyanocobalamin (vitamin B-12) 3,000 mcg PO DAILY #30 caps 12/21/23 Unknown Rx 3,000 mcg capsule dulaglutide 0.75 mg/0.5 mL 0.75 mg (0.5 mL) subcut QWEEK 12/21/23 10/06/24 Rx subcutaneous pen injector glucose #2 mL (Trulicity) ferrous sulfate 325 mg (65 mg 325 mg PO DAILY@1200 #30 tabs 12/21/23 Unknown Rx iron) tablet (FeroSul) gabapentin 100 mg capsule 200 mg (2 x 100 mg) PO 2000 pain 12/21/23 Unknown Rx #60 caps levothyroxine 88 mcg tablet 88 mcg PO 0600 #30 tabs 12/21/23 10/17/24 Rx sertraline 50 mg tablet 50 mg PO DAILY #30 tabs 12/21/23 Unknown Rx levetiracetam 500 mg tablet 500 mg PO BID 12/28/23 10/17/24 History apixaban 5 mg tablet 5 mg PO BID blood thinner #60 tabs 12/31/23 Unknown Rx carvedilol 25 mg tablet 25 mg PO BID #60 tabs 12/31/23 10/17/24 Rx furosemide 40 mg tablet (Lasix) 40 mg PO DAILY please adjust 01/29/24 Unknown Rx prepackaged meds #90 tabs losartan 50 mg tablet 50 mg PO BID #60 tabs 02/19/24 10/17/24 Rx calcium carbonate 500 mg PO BID supplement 03/21/24 Unknown History simvastatin 40 mg tablet 40 mg PO QHS CHOLESTEROL #90 tabs 07/25/24 Unknown Rx amoxicillin 875 mg-potassium 1 tab PO BID 10/16/24 Unknown History clavulanate 125 mg tablet apixaban 5 mg tablet (Eliquis) 5 mg PO BID 10/16/24 10/17/24 History benzonatate 100 mg capsule 100 mg PO TID PRN PRN cough 10/16/24 Unknown History magnesium chloride 64 mg 64 mg PO DAILY supplement 10/16/24 Unknown History (magnesium chloride) tablet,delayed release (Mag 64) nitrofurantoin 1 cap PO DAILY urinary uti 10/17/24 Unknown History monohydrate/macrocrystals 100 mg capsule systane dry eye dry eyes 10/17/24 Unknown History Allergy/AdvReac Type Severity Reaction Status Date / Time No Known Allergies Allergy Verified 10/17/24 18:40 Family History Sister Asthma Colon cancer Diabetes Brother Cancer Throat cancer Father Prostate cancer Daughter Myocardial infarction Surgical History History of cataract extraction with lens replacement History of right hip replacement 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) History of left heart catheterization (LHC) (02/14/17) Social History household members: none housing: other details: Lives in a duplex number of children: 2 current occupational status: retired pets and animals: Yes (She has a black poodle named Mary Jane) pets and animals: dog(s) leisure activities: other history of recent travel: No Smoking Status: Never smoker alcohol intake: never diet: diabetic what type of physical activity do you participate in: none seatbelt use: always ROS <MAK Alfred - Last Filed: 10/17/24 20:49> ROS ED ROS Narrative Constitutional: Negative for fever, chills, weight loss. Positive for weakness Eyes: Negative for vision loss, vision change, double vision ENT: Negative for any sore throat, ear pain, congestion Cardiovascular: Negative for any chest pain, tightness, palpitations Respiratory: Negative for any sputum production, hemoptysis.positive for cough, dyspnea dyspnea, dyspnea on exertion, orthopnea Gastrointestinal: Negative for any nausea, vomiting, diarrhea, constipation, blood in stool, blood in vomit. Positive for abdominal pain : Negative for any urinary frequency, dysuria, retention, blood in urine Muscle skeletal: Negative for any neck pain, back pain Neurological: Negative for any headache, syncope, dizziness Skin: Negative for any rashes, itching, abrasions, lacerations Psychiatric: Negative for any depression, anxiety, stress, suicidal ideation, homicidal ideation Hematologic: Negative for any excessive bruising, easy bleeding EXAM <MAK Alfred - Last Filed: 10/17/24 20:49> Physical Exam Narrative Exam Narrative: Vital signs reviewed. Patient is normotensive however does have tachycardia, appears irregular. Patient is alert and orient x 4. Does have a pale appearance to her. HEET: Head normocephalic atraumatic, TMs clear bilaterally. Posterior pharynx is clear, dry mucous membranes. Nares clear bilaterally. Neck: Supple with no lymphadenopathy or tenderness. No signs of meningismus. Cardiac: Tachycardic irregular rhythm no murmurs gallops or rubs, equal peripheral pulses bilaterally. Respiratory: Expiratory wheezes throughout pulmonary exam,. No chest tenderness. Abdomen: Soft, nondistended. No abdominal bruit or pulsatile masses. No hepatosplenomegaly. Tenderness to the left lower abdomen Extremities: No peripheral edema, no signs of gross trauma or deformity. Active full range of motion of all extremities. Neuro: Cranial nerves II through XII intact, no focal neurological deficits. Skin: Clean dry and intact with no rash, purpura, petechiae, vesicles or pustules. Backs/flank: No CVA tenderness, no midline spinal tenderness, no deformity. Psych: Normal mood and affect. No SI, HI or acute psychosis. Const Vital Signs: 10/17/24 18:03 10/17/24 18:17 10/17/24 18:23 Temperature 98.2 F Temperature Source Oral Pulse Rate 116 H Respiratory Rate 19 H Respiratory Pattern Normal Blood Pressure 112/77 Blood Pressure Mean 88 Pulse Ox 94 94 Oxygen Delivery Method Room Air Nasal Cannula Oxygen Flow Rate (L/min) 2 10/17/24 18:25 10/17/24 18:26 10/17/24 18:34 Temperature 98.2 F Temperature Source Oral Pulse Rate 122 H 108 H Respiratory Rate 19 H 26 H Respiratory Pattern Tachypnea Blood Pressure 112/77 Blood Pressure Mean 88 Pulse Ox 95 89 Oxygen Delivery Method Nasal Cannula Room Air Oxygen Flow Rate (L/min) 2 10/17/24 19:07 10/17/24 20:00 Temperature 98.3 F 98.2 F Temperature Source Oral Oral Pulse Rate 102 H 102 H Respiratory Rate 18 19 H Respiratory Pattern Blood Pressure 112/63 116/74 Blood Pressure Mean 79 88 Pulse Ox 96 97 Oxygen Delivery Method Nasal Cannula Nasal Cannula Oxygen Flow Rate (L/min) 2 2 <Dr. Thaddeus Rand, DO - Last Filed: 10/17/24 23:38> Physical Exam Const Vital Signs: 10/17/24 18:03 10/17/24 18:17 10/17/24 18:23 Temperature 98.2 F Temperature Source Oral Pulse Rate 116 H Respiratory Rate 19 H Respiratory Pattern Normal Blood Pressure 112/77 Blood Pressure Mean 88 Pulse Ox 94 94 Oxygen Delivery Method Room Air Nasal Cannula Oxygen Flow Rate (L/min) 2 10/17/24 18:25 10/17/24 18:26 10/17/24 18:34 Temperature 98.2 F Temperature Source Oral Pulse Rate 122 H 108 H Respiratory Rate 19 H 26 H Respiratory Pattern Tachypnea Blood Pressure 112/77 Blood Pressure Mean 88 Pulse Ox 95 89 Oxygen Delivery Method Nasal Cannula Room Air Oxygen Flow Rate (L/min) 2 10/17/24 19:07 10/17/24 20:00 Temperature 98.3 F 98.2 F Temperature Source Oral Oral Pulse Rate 102 H 102 H Respiratory Rate 18 19 H Respiratory Pattern Blood Pressure 112/63 116/74 Blood Pressure Mean 79 88 Pulse Ox 96 97 Oxygen Delivery Method Nasal Cannula Nasal Cannula Oxygen Flow Rate (L/min) 2 2 MDM <OSBALDO AlfredC - Last Filed: 10/17/24 20:49> [facility] Lab Data Labs: Laboratory Results - last 24 hr 10/17/24 10/17/24 10/17/24 18:14 18:20 19:10 WBC 18.8 H RBC 4.49 Hgb 14.1 Hct 42.6 MCV 94.9 MCH 31.4 MCHC 33.1 RDW Std Deviation 42.7 RDW Coeff of Bhupinder 12.5 Plt Count 303 MPV 10.3 Immature Gran % (Auto) 0.900 Neut % (Auto) 91.8 H Lymph % (Auto) 2.1 L Dickey % (Auto) 3.9 Eos % (Auto) 0.8 Baso % (Auto) 0.5 Absolute Neuts (auto) 17.2 H Absolute Lymphs (auto) 0.39 L Nucleated RBC % 0 Sodium 136 Potassium 4.1 Chloride 100 Carbon Dioxide 31.0 Anion Gap 5 BUN 20 H Creatinine 1.36 H Estim Creat Clear Calc 32.44 Est GFR (MDRD) Af Amer 47 L Est GFR (MDRD) Non-Af 39 L BUN/Creatinine Ratio 14.7 Glucose 359 H Lactic Acid 3.2 H* Calcium 9.2 Phosphorus 2.8 Magnesium 1.6 Total Bilirubin 0.60 AST 22 ALT 17 Alkaline Phosphatase 98 Total Protein 6.7 Albumin 3.0 L Globulin 3.7 Albumin/Globulin Ratio 0.8 L Lipase 28 Urine Color Straw Urine Clarity Clear Urine pH 5.0 Ur Specific [place] 1.015 Urine Protein Negative Urine Glucose (UA) 250 H Urine Ketones Negative Urine Occult Blood Negative Urine Nitrite Negative Urine Bilirubin Negative Urine Urobilinogen Normal Ur Leukocyte Esterase Negative Urine RBC 0-5 SEEN Urine WBC 0-5 SEEN Ur Squamous Epith Cells 0-5 SEEN Urine Bacteria 0 SEEN Hyaline Casts 0-5 SEEN Urine Mucus 1+ Radiography Diagnostic Testing: Clinical Impression(s) from Imaging Studies Chest/Abdomen/Pelvis CT 10/17/24 18:19 IMPRESSION: 1. Multifocal infiltrates in both lungs most consistent with pneumonia. 2. Cholelithiasis. Electronically Signed: Cedric Da Silva MD at 20:35 EST , EKG Atrial fibrillation: Attestation: I personally reviewed and interpreted this EKG as follows: Interpretation: Atrial Fibrillation Comments: Atrial fibrillation, rate 109 bpm, QRS duration 100 ms, no acute ST elevation, no acute infarct noted. Treatment and Re-Evaluation :: Differential diagnosis includes however is not limited to: UTI, COVID-19 influenza RSV, other virus, worsening community-acquired pneumonia, COPD exacerbation, CHF exacerbation, electrolyte abnormality, A-fib with RVR, dehydration Patient is tachycardic however the remainder of the patient's vital signs are stable. Patient does look like she does not feel well however do not believe she is septic. Patient will receive a repeat workup, including CBC CMP lipase, lactic as well as CT scan of the chest abdomen pelvis. A complete respiratory panel will be completed. All radiologic examinations were read, reviewed by the emergency department attending. From these reads, a plan of care will be put in place. Patient will receive IV fluids 500 cc. Patient was given another liter of normal saline. Patient's laboratory values shows a leukocytosis with a white blood count of 18.8, this is significant increase from yesterday that was 11.5. Patient's creatinine is 1.36 this is baseline. Patient's blood glucose was 259 with a lactic acid of 3.2. Lipase was negative. Currently waiting on the urinalysis. Patient was placed on 2 L nasal cannula oxygen. EKG shows atrial fibrillation which has history of. Patient CT scan of chest abdomen pelvis shows multifocal infiltrates in both lungs most consistent with pneumonia. Cholelithiasis. Patient started on IV Zosyn, vancomycin. Patient will need to be admitted to the hospital for hypoxia, failed outpatient therapy. I spoke with the patient as well as the patient's daughters, they are in agreement. Patient on 2 L is in a position of comfort, I will speak to the hospitalist. <Dr. Thaddeus Rand, DO - Last Filed: 10/17/24 23:38> [facility] Narrative Medical decision making narrative: Attending note: I have personally performed a face to face assessment of the patient and have reviewed the ALEXANDRU note. I personally made/approved the management plan and take responsibility for the patient management. I performed a substantive portion of the visit including all aspects of the following. My telles findings include: Presented to the ED with daughter worsening dyspnea and cough today. Nonproductive cough approximately week ago saw PCP office placed on Augmentin. She is on chronic nitrofurantoin for UTIs. She was seen yesterday in the ED reporting concerns of have a UTI. Her workup urine was negative. Chest x-ray negative yesterday. Labs are stable. Discharged continue of her Augmentin. Today sudden worsening dyspnea and cough reported intermittent wheezing with history of asthma. Denies any fevers. History of A-fib on Eliquis and Coreg. Exam on arrival 89% on room air. Patient had wheezing on exam by surfacer operator during my exam after aerosol treatments this was improved. She is on 2 L nasal cannula. Heart was irregular and tachycardic. Patient had labs drawn. White count returned to 18. Additional sepsis labs were ordered. Lactic acid returned at 3.2. She had CT chest abdomen pelvis reported abdominal pain with cough along with diarrhea since being on Augmentin. Stool studies ordered and was pending. CT scan concerns for multifocal pneumonia. Due to being on Augmentin she was covered with Zosyn and vancomycin in the ED. Urine was negative. Discussed with hospitalist for admission. Lab Data Attestation: I reviewed the patient's lab results. Labs: Laboratory Results - last 24 hr 10/17/24 10/17/24 10/17/24 18:14 18:20 19:10 WBC 18.8 H RBC 4.49 Hgb 14.1 Hct 42.6 MCV 94.9 MCH 31.4 MCHC 33.1 RDW Std Deviation 42.7 RDW Coeff of Bhupinder 12.5 Plt Count 303 MPV 10.3 Immature Gran % (Auto) 0.900 Neut % (Auto) 91.8 H Lymph % (Auto) 2.1 L Dickey % (Auto) 3.9 Eos % (Auto) 0.8 Baso % (Auto) 0.5 Absolute Neuts (auto) 17.2 H Absolute Lymphs (auto) 0.39 L Nucleated RBC % 0 Sodium 136 Potassium 4.1 Chloride 100 Carbon Dioxide 31.0 Anion Gap 5 BUN 20 H Creatinine 1.36 H Estim Creat Clear Calc 32.44 Est GFR (MDRD) Af Amer 47 L Est GFR (MDRD) Non-Af 39 L BUN/Creatinine Ratio 14.7 Glucose 359 H Lactic Acid 3.2 H* Calcium 9.2 Phosphorus 2.8 Magnesium 1.6 Total Bilirubin 0.60 AST 22 ALT 17 Alkaline Phosphatase 98 Total Protein 6.7 Albumin 3.0 L Globulin 3.7 Albumin/Globulin Ratio 0.8 L Lipase 28 Urine Color Straw Urine Clarity Clear Urine pH 5.0 Ur Specific [place] 1.015 Urine Protein Negative Urine Glucose (UA) 250 H Urine Ketones Negative Urine Occult Blood Negative Urine Nitrite Negative Urine Bilirubin Negative Urine Urobilinogen Normal Ur Leukocyte Esterase Negative Urine RBC 0-5 SEEN Urine WBC 0-5 SEEN Ur Squamous Epith Cells 0-5 SEEN Urine Bacteria 0 SEEN Hyaline Casts 0-5 SEEN Urine Mucus 1+ Radiography Diagnostic Testing: Clinical Impression(s) from Imaging Studies Chest/Abdomen/Pelvis CT 10/17/24 18:19 IMPRESSION: 1. Multifocal infiltrates in both lungs most consistent with pneumonia. 2. Cholelithiasis. Electronically Signed: Cedric Da Silva MD at 20:35 EST , Discharge Plan Dx/Rx/DC Orders Clinical Impression: Community acquired pneumonia, Hypoxia, Weakness, Atrial fibrillation, Asthma Disposition Disposition: Acute Care Hospital [facility] Discharge Date/Time: 10/17/24 21:31
[2024-10-17] MEDS: Albuterol 2.5 MG/3 ML VIAL.NEB. INHALATION ×2 (18:34→23:18)
[2024-10-17] MEDS: Ipratropium/Albuterol Sulfate 3 ML AMPUL.NEB INHALATION (18:34)
[2024-10-17] MEDS: 0.9% Normal Saline (500mL Bag) 500 ML 999 ML IV (18:38)
[2024-10-17 18:46] LABS: Absolute Lymphocyte Count 0.39 X10^3/uL (0.83-4.51); Absolute Neutrophil Count 17.2 X10^3/uL (2.0-7.7); Basophil# 0.09 X10^3/uL; Basophil% 0.5 % (0-1); Eosinophil# 0.15 X10^3/uL; Eosinophils% 0.8 % (0-5); Hematocrit 42.6 % (37-47); Hemoglobin 14.1 g/dL (12.0-15.0); Lymphocyte # 0.39 X10^3/ul (0.83-4.51); Lymphocyte % 2.1 % (19-41); Mean Corp Hgb Conc 33.1 g/dL (32-36); Mean Corpuscular Hgb 31.4 pg (27.0-32.0); Mean Corpuscular Volume 94.9 fL (81-99); Mean Platelet Vol. 10.3 fl (6.2-12.0); Monocyte# 0.73 X10^3/uL; Monocyte% 3.9 % (0-10); NRBC Flagged by Analyzer 0 % (0-5); Neutrophil # 17.24 X10^3/uL (2.7-7.7); Neutrophil % 91.8 % (47-70); POSITIVE DIFFERENTIAL YES; Platelet Count 303 K/mm3 (150-450); RBC Distribution Width CV 12.5 % (11.6-14.6); RBC Distribution Width SD 42.7 fl (35.1-43.9); Red Blood Count 4.49 M/mm3 (4.2-5.4); White Blood Count 18.8 K/mm3 (4.4-11.0)
[2024-10-17 19:02] LABS: ALB/GLOB Ratio 0.8 RATIO (0.9-2.4); AST(SGOT) 22 U/L (15-37); Alanine Aminotransfer ALT/SGPT 17 U/L (13-56); Alkaline Phosphatase 98 U/L (45-117); Anion Gap 5 (5-15); BUN 20 mg/dL (7-18); BUN/Creat Ratio 14.7 RATIO (10-20); Calcium,Total 9.2 mg/dL (8.5-10.1); Chloride 100 mmol/L (98-107); Creatinine, Serum 1.36 mg/dL (0.55-1.02); EST Glomerular Filtration Rate 39 mL/min (>60); Est Glom Filt Rate - Afr Amer 47 mL/min (>60); Estimated Creatinine Clearance 32.44 ml/min; Globulin 3.7 g/dL (2.2-4.2); Glucose 359 mg/dL (74-106); Lipase 28 U/L (13-75); Potassium 4.1 mmol/L (3.5-5.1); Protein, Total 6.7 g/dL (6.4-8.2); Sodium Level 136 mmol/L (136-145)
[2024-10-17 19:14] LABS: Bacteria 0 SEEN /hpf (None Seen)
[2024-10-17 19:16] LABS: Color, Urine Straw (Yellow); Glucose, Dipstick 250 mg/dl (Normal); Ketone-Dipstick Negative (Negative); Leukocyte Esterase-Dipstick Negative /ul (Negative); Nitrite-Dipstick Negative (Negative); Occult Blood-Urine Negative /ul (Negative); Protein-Dipstick Negative (Negative); Specific Gravity, Urine 1.015 (1.002-1.030); Urine Bilirubin Dipstick Negative (Negative); Urine Clarity Clear (Clear); Urine Urobilinogen Normal (Normal)
[2024-10-17 19:34] LABS: Lactic Acid 3.2 mmol/L (0.4-1.9)
[2024-10-17] MEDS: 0.9% Normal Saline (1000mL) 1,000 ML 999 ML IV (19:52)
--- NOTE | 2024-10-17 19:55 | CPS ---
[1834] x1 Albuterol given to pt. in ER as well
[2024-10-17 19:57] LABS: Hyaline Cast 0-5 SEEN /lpf (0-5); Mucous, Urine 1+ /hpf (<or=2+); Red Blood Cells-Urine 0-5 SEEN /hpf (0-5); Squamous Epithelial Cells - UA 0-5 SEEN /hpf (5-10); White Blood Cells 0-5 SEEN /hpf (0-5)
[2024-10-17] MEDS: Piperacil/Tazobactam 3.375 GM in 0.9% Normal Saline (50mL MB+) 50 ML IV (20:09)
[2024-10-17] MEDS: Vancomycin HCl 1,250 MG in 0.9% Normal Saline (250mL Bag) 250 ML 167 MG IV (20:45)
--- NOTE | 2024-10-17 20:55 | PCM.HP.STD ---
HPI - General General Date of Admission: 10/17/24 Date of Service: 10/17/24 Chief Complaint: Cough, dyspnea, worsening, diarrhea. HPI Narrative The patient is an 89 y/o F w/ PMHx: Seizure disorder, Obesity, CKD stage III unclear subtype per GFR trending, Diabetes mellitus type II w/ chronic neuropathy, HTN, HLD, Hx CVA, PAF, HFmrEF/Nonischemic cardiomyopathy, Anxiety and Depression, Chronic Fe deficiency, GERD, Asthma, Hypothyroidism, RLS who presents to the [facility] ED on 10/17/24 with history of living at home with her daughter with persistent ongoing weakness recently started on Augmentin for an upper respiratory tract infection in the ED the day prior secondary to weakness and at that time concern for UTI however workup was unremarkable discharged to home but she felt more ill 1 day of presentation with increasing weakness and inability to get around at her home as well as some generalized abdominal discomfort possibly from coughing and more dyspnea on day of presentation prompting repeat ED reevaluation. She notes that she started the Augmentin on October 09. She does have a son-in-law who recently was diagnosed with influenza A. She primarily has been significantly fatigued, weak and has had a severe ongoing persistent cough. She does report since starting the Augmentin she is has had notable diarrhea and poor appetite. Workup in the ED included T90.2, heart rate 116, BP 112/77, respiratory rate 19, initially 94% on room air with desaturation down to 89% with most recent repeat vital signs T98.2, heart rate 102, BP 116/74, respiratory rate 19, 97% on 2 L nasal cannula, CBC with WBC 18.8, human 14.1, platelets 303 with left shift and lymphopenia, CMP with BUN/creatinine 20/1.36, GFR 39, glucose 359, hepatic profile not marked appearing, lactic acid 3.2, SARS COVID negative, pending blood culture x 2, CT chest/abdomen/pelvis with multifocal infiltrates in both lungs consistent with pneumonia and evidence of cholelithiasis, EKG with atrial fibrillation with no acute evidence of ischemia. In the ED patient ministered IV vancomycin, IV Zosyn, DuoNeb and albuterol therapy as well as 1 L normal saline. [facility]LY [facility] Medical History Cardiomyopathy CVA (cerebral vascular accident) Atrial fibrillation Obesity (BMI 30.0-34.9) Restless leg syndrome Hiatal hernia Chronic congestive heart failure Secondary pulmonary arterial hypertension Non-rheumatic tricuspid valve insufficiency Nonischemic cardiomyopathy GERD (gastroesophageal reflux disease) Iron deficiency anemia Depression Neuropathic pain Hip fracture Hypothyroidism Type 2 diabetes mellitus Osteoarthritis Asthma Essential (primary) hypertension Atherosclerosis of coronary artery of [place] heart without angina pectoris PVC's (premature ventricular contractions) Non-ST elevation (NSTEMI) myocardial infarction Acute respiratory failure Nonrheumatic mitral (valve) insufficiency PVT (paroxysmal ventricular tachycardia) Hyperlipidemia Home Medications ?Medication ?Instructions ?Recorded ?Last Taken ?Type albuterol sulfate 90 mcg/actuation 2 puff inhalation Q6H PRN PRN Sob 12/04/17 Unknown History aerosol inhaler &/Or Wheezing omeprazole 40 mg capsule,delayed 40 mg PO DAILY GERD 11/06/23 Unknown History release multivitamin (Daily Multi-Vitamin 1 tab PO DAILY supplement 12/05/23 Unknown History tablet) Olopatadine HCl 0 ml ophthalmic (eye) BID ##0 12/21/23 Unknown Rx acetaminophen 500 mg tablet 1,000 mg (2 x 500 mg) PO 1300,2100 12/21/23 10/16/24 Rx #120 tabs cyanocobalamin (vitamin B-12) 3,000 mcg PO DAILY #30 caps 12/21/23 Unknown Rx 3,000 mcg capsule dulaglutide 0.75 mg/0.5 mL 0.75 mg (0.5 mL) subcut QWEEK 12/21/23 12/03/23 Rx subcutaneous pen injector glucose #2 mL (Trulicity) ferrous sulfate 325 mg (65 mg 325 mg PO DAILY@1200 #30 tabs 12/21/23 Unknown Rx iron) tablet (FeroSul) gabapentin 100 mg capsule 200 mg (2 x 100 mg) PO 2000 #60 12/21/23 Unknown Rx caps levothyroxine 88 mcg tablet 88 mcg PO 0600 #30 tabs 12/21/23 10/17/24 Rx sertraline 50 mg tablet 50 mg PO DAILY #30 tabs 12/21/23 Unknown Rx levetiracetam 500 mg tablet 500 mg PO BID 12/28/23 10/17/24 History apixaban 5 mg tablet 5 mg PO BID blood thinner #60 tabs 12/31/23 Unknown Rx carvedilol 25 mg tablet 25 mg PO BID #60 tabs 12/31/23 10/17/24 Rx furosemide 40 mg tablet (Lasix) 40 mg PO DAILY please adjust 01/29/24 Unknown Rx prepackaged meds #90 tabs losartan 50 mg tablet 50 mg PO BID #60 tabs 02/19/24 10/17/24 Rx calcium carbonate 200 mg PO BID 03/21/24 Unknown History simvastatin 40 mg tablet 40 mg PO QHS CHOLESTEROL #90 tabs 07/25/24 Unknown Rx amoxicillin 875 mg-potassium 1 tab PO BID 10/16/24 Unknown History clavulanate 125 mg tablet apixaban 5 mg tablet (Eliquis) 5 mg PO BID 10/16/24 10/17/24 History benzonatate 100 mg capsule 100 mg PO TID PRN PRN cough 10/16/24 Unknown History magnesium chloride 64 mg 128 mg PO DAILY 10/16/24 Unknown History (magnesium chloride) tablet,delayed release (Mag 64) Allergy/AdvReac Type Severity Reaction Status Date / Time No Known Allergies Allergy Verified 10/17/24 18:40 Family History Sister Asthma Colon cancer Diabetes Brother Cancer Throat cancer Father Prostate cancer Daughter Myocardial infarction Surgical History History of cataract extraction with lens replacement History of right hip replacement 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) History of left heart catheterization (LHC) (02/14/17) Social History household members: none housing: other details: Lives in a duplex number of children: 2 current occupational status: retired pets and animals: Yes (She has a black poodle named Mary Jane) pets and animals: dog(s) leisure activities: other history of recent travel: No Smoking Status: Never smoker alcohol intake: never diet: diabetic what type of physical activity do you participate in: none seatbelt use: always ROS ROS Narrative Admission Review of Systems: CONSTITUTIONAL: No weight loss, fever, chills, + weakness or fatigue. HEENT: + Cough, congestion. Eyes: No visual loss, blurred vision, double vision or yellow sclerae. Ears, Nose, Throat: No hearing loss, sneezing. SKIN: No rash or itching, lesions, wounds. CARDIOVASCULAR: No chest pain, chest pressure or chest discomfort, palpitations, edema, orthopnea, syncopal events. RESPIRATORY: + Dyspnea, cough, occasional wheezing. No hemoptysis. GASTROINTESTINAL:+ Anorexia, diarrhea. No nausea, vomiting, abdominal pain, melena, BRBPR. GENITOURINARY: No dysuria, frequency, urgency or retention. NEUROLOGICAL: History of previous CVA, history of seizure disorder. No headache, dizziness, syncope, paralysis. MUSCULOSKELETAL: + muscle, back pain, joint pain or stiffness. HEMATOLOGIC: + History of iron deficiency, easy bleeding/bruising. LYMPHATICS: No enlarged nodes. No history of splenectomy. PSYCHIATRIC: + History of anxiety and depression. ENDOCRINOLOGIC: No reports of sweating, cold or heat intolerance. No polyuria or polydipsia. ALLERGIES: + History of asthma. Vital Signs Vital Signs Vital Signs: 10/17/24 18:03 10/17/24 18:17 10/17/24 18:23 Temperature 98.2 F Temperature Source Oral Pulse Rate 116 H Respiratory Rate 19 H Respiratory Pattern Normal Blood Pressure 112/77 Blood Pressure Mean 88 Pulse Ox 94 94 Oxygen Delivery Method Room Air Nasal Cannula Oxygen Flow Rate (L/min) 2 10/17/24 18:25 10/17/24 18:26 10/17/24 18:34 Temperature 98.2 F Temperature Source Oral Pulse Rate 122 H 108 H Respiratory Rate 19 H 26 H Respiratory Pattern Tachypnea Blood Pressure 112/77 Blood Pressure Mean 88 Pulse Ox 95 89 Oxygen Delivery Method Nasal Cannula Room Air Oxygen Flow Rate (L/min) 2 10/17/24 19:07 10/17/24 20:00 Temperature 98.3 F 98.2 F Temperature Source Oral Oral Pulse Rate 102 H 102 H Respiratory Rate 18 19 H Respiratory Pattern Blood Pressure 112/63 116/74 Blood Pressure Mean 79 88 Pulse Ox 96 97 Oxygen Delivery Method Nasal Cannula Nasal Cannula Oxygen Flow Rate (L/min) 2 2 Weight Weight: 200 lb 2.876 oz Body Mass Index (BMI) 33.3 Physical Exam Narrative Physical Examination: General: Awake, alert, oriented to self, place and recent events, able to read nice family and give appropriate historical context, remains cooperative, laying in the ED bed, fatigued and ill-appearing. Skin: Normal color, normal turgor, no icterus, no cyanosis except occasional staged ecchymoses, abrasions HEENT: AT/NC, EOMI, PERRLA, dry MM, no carotid bruits or JVD noted. Lungs: Significantly diminished, greater bases, mildly increased respiratory rate but no distress, no rales, ronchi or wheezing. Heart: Tachycardic, irregular; no gallop, rub audible. Abdomen: Soft, NTTP, ND, mildly hyperactive BS, no appreciated HSM. Extremities: No cyanosis, clubbing, or edema. Neurological: Patient awake, alert, oriented as noted, cognitive function intact although significantly fatigued and weak with acute illness; pupils equally reactive to light and accommodation, cranial nerves currently appear grossly normal aside history of a mild facial droop and CVA previously, moving all 4 extremities, strength severely globally decreased. Psychiatric: Affect appears flat, fatigued, ill-appearing, no acute evidence of depressive or anxiety feelings but does have underlying history. Results Lab / Micro Data 10/17/24 18:14 10/17/24 18:14 Labs: Laboratory Results - last 24 hr 10/17/24 18:14: WBC 18.8 H, RBC 4.49, Hgb 14.1, Hct 42.6, MCV 94.9, MCH 31.4, MCHC 33.1, RDW Std Deviation 42.7, RDW Coeff of Bhupinder 12.5, Plt Count 303, MPV 10.3, Immature Gran % (Auto) 0.900, Neut % (Auto) 91.8 H, Lymph % (Auto) 2.1 L, [place] % (Auto) 3.9, Eos % (Auto) 0.8, Baso % (Auto) 0.5, Absolute Neuts (auto) 17.2 H, Absolute Lymphs (auto) 0.39 L, Nucleated RBC % 0, Sodium 136, Potassium 4.1, Chloride 100, Carbon Dioxide 31.0, Anion Gap 5, BUN 20 H, Creatinine 1.36 H, Estim Creat Clear Calc 32.44, Est GFR (MDRD) Af Amer 47 L, Est GFR (MDRD) Non-Af 39 L, BUN/Creatinine Ratio 14.7, Glucose 359 H, Calcium 9.2, Total Bilirubin 0.60, AST 22, ALT 17, Alkaline Phosphatase 98, Total Protein 6.7, Albumin 3.0 L, Globulin 3.7, Albumin/Globulin Ratio 0.8 L, Lipase 28 10/17/24 18:20: Lactic Acid 3.2 H* 10/17/24 19:10: Urine Color Straw, Urine Clarity Clear, Urine pH 5.0, Ur Specific [place] 1.015, Urine Protein Negative, Urine Glucose (UA) 250 H, Urine Ketones Negative, Urine Occult Blood Negative, Urine Nitrite Negative, Urine Bilirubin Negative, Urine Urobilinogen Normal, Ur Leukocyte Esterase Negative, Urine RBC 0-5 SEEN, Urine WBC 0-5 SEEN, Ur Squamous Epith Cells 0-5 SEEN, Urine Bacteria 0 SEEN, Hyaline Casts 0-5 SEEN, Urine Mucus 1+ Micro: Microbiology 10/17/24 18:50 Mucosa - Nose Coronavirus COVID-19 PCR - Final Imaging Radiology Impression Chest/Abdomen/Pelvis CT 10/17/24 18:19 IMPRESSION: 1. Multifocal infiltrates in both lungs most consistent with pneumonia. 2. Cholelithiasis. Electronically Signed: Cedric Da Silva MD at 20:35 EST , Assessment & Plan Assessment/Plan (1) Hypoxia: (2) Community acquired pneumonia: PLAN: Plan The patient is an 89 y/o F w/ PMHx: Seizure disorder, Obesity, CKD stage III unclear subtype per GFR trending, Diabetes mellitus type II w/ chronic neuropathy, HTN, HLD, Hx CVA, PAF, HFmrEF/Nonischemic cardiomyopathy, Anxiety and Depression, Chronic Fe deficiency, GERD, Asthma, Hypothyroidism, RLS who presents to the [facility] ED on 10/17/24 with history of living at home with her daughter with persistent ongoing weakness recently started on Augmentin for an upper respiratory tract infection in the ED the day prior secondary to weakness and at that time concern for UTI however workup was unremarkable discharged to home but she felt more ill 1 day of presentation with increasing weakness and inability to get around at her home as well as some generalized abdominal discomfort possibly from coughing and more dyspnea on day of presentation prompting repeat ED reevaluation. #1. Acute Hypoxia secondary to multifocal community acquired pneumonia, failed outpatient antibiotic therapy with associated adult failure to thrive (SIRS w/ tachycardia, tachypnea, WBC elevation with SEP 1 with lactic acidosis suspected secondary to dehydration and also hypoxemia but no evidence otherwise of end organ damage to constitute sepsis, ruled out): Will admit to PCU, maintain on oxygen with wean as tolerated to room airmaintain on ATC budesonide, PRN albuterol, maintained on IV Rocephin 2 g IV every 24 and azithromycin 500 mg IV every 24 per severe pneumonia order set protocol, administered significant broad-spectrum antibiotic therapy in the ED with IV vancomycin and IV Zosyn thus certainly could broaden regimen again but at this time we will go per protocol, MRSA screen requested, HOB, IS parameters w/ pending sputum cultures and urine antigens as well as full respiratory viral panel, procalcitonin and mycoplasma pneumonia IgG and IgM in addition to C. difficile and enteric pathogen's given severe diarrhea although sounds likely secondary to antibiotic therapy. Bld cx x 2 obtained in the ED. PT/OT/case management consulted for discharge planning. #2. Diabetes mellitus type II with chronic neuropathy with hyperglycemia: Hold oral home regimen, hold Trulicity, maintain on ADA diet, accu checks w/ ISS, hemoglobin A1c requested given significant hyperglycemia upon ED arrival with glucose noted 359 likely from #1. #3. HFmrEF, Nonischemic Cardiomyopathy: Echocardiogram 02/01/2024 with normal LV size, EF 40%, mild to moderate global hypokinesis LV, bileaflet diffuse MV thickening, mild to moderate posteriorly directed MV insufficiency, mild focal posterior wall annular calcification judiciously hydrating given history, will continue Eliquis, statin, Coreg and ARB as BP allows with hold parameters as needed, temporally holding Lasix with plan judicious hydration, resume once following. #4. Chronic Kidney Disease Stage III, unclear subtype per GFR trend: Admission BUN/Cr 20/1.36, GFR 39, baseline renal function 1.0-1.3, repeat BMP in AM. #5. Chronic asthma: Complicated by a presentation as noted #1, will maintain on ATC budesonide therapy, PRN albuterol, HOB, IS parameters. #6. Hx CVA: Patient with history of acute stroke with left-sided weakness as well as left facial droop, we will continue patient home Eliquis, hypertension regimen with adjustment/hold parameters as noted, statin therapy, diabetic regimen with adjustment/holds as noted. #7. PAF: We will continue patient home Eliquis and Coreg regimen with hold parameters as needed. #8. Anxiety and depression: We will continue patient home sertraline regimen. #9. Chronic iron deficiency: Admission hemoglobin 14.1, MCV 94.9, similar to previous baseline, we will continue patient home iron supplementation. #10. Seizure disorder: We will continue patient home Keppra regimen. #11. Hypothyroidism: We will continue patient home levothyroxine regimen. #12. Hypertension: Continue home regimen including losartan, Coreg with hold parameters, will temporally hold Lasix with planned hydration, resume once appropriate, PRN hydralazine. #13. Hyperlipidemia: We will continue patient home statin therapy. #14. GERD: We will continue patient on PPI. #15. Obesity: Weight loss and lifestyle changes encouraged. #16. DVT prophylaxis: Will continue patient home Eliquis regimen. #17. CODE status: Patient ZORAIDA is her daughter who is present and living will is currently in place. Discussed CODE status at length including difference between FULL code, DNR-CCA and DNR-CC status. Following discussions about the differences in these status, requested DNR-CCA, no intubation status. Advanced Care Planning Face to Face Time: 16 minutes. Charges/Coding Visit Charges Inpatient E&M: 57397 Init Hosp L3 Procedures Hospitalists Procedures: 27964 Advncd Care Plan 30 Min
[2024-10-17 22:41] LABS: Reflex Lactate? Y
[2024-10-17 22:41] LABS: Magnesium 1.6 mg/dL (1.6-2.6); Phosphorus 2.8 mg/dL (2.5-4.9)
[2024-10-17] MEDS: 0.9% Normal Saline (1000mL) 1,000 ML 100 ML IV (23:07)
[2024-10-17] MEDS: guaiFENesin 10 ML UDC (200MG/10ML) 20 ML PO (23:13)
[2024-10-17] MEDS: Lactobacillis Acidophilus 1 CAP PO (23:14)
[2024-10-17] MEDS: Acetaminophen 325 MG Tablet 650 MG PO (23:14)
[2024-10-17] MEDS: Budesonide Respules 0.5 MG/2 ML AMPUL.NEB. INHALATION (23:18)
[2024-10-17] MEDS: Atorvastatin Calcium 20 MG Tablet PO (23:28)
[2024-10-17] MEDS: levETIRAcetam 500 MG Tablet PO (23:28)
[2024-10-17] MEDS: APIXABAN 5 MG TABLET PO (23:28)
[2024-10-17] MEDS: Menthol/Lanolin/Calamine/Znox 113 GM Tube 1 APPLIC TOPICAL (23:37)
[2024-10-17] MEDS: Insulin Lispro 100 UNIT/ML INSULN.PEN SC (23:45)
[2024-10-18] VITALS (11 sets, daily range): BP systolic 95–124; BP diastolic 63–88; PULSE 78–101; RESP 17–27; TEMP 36.3–37.6; O2SAT 93–100; BMI 32.7
[2024-10-18 00:08] LABS: Lactic Acid 1.7 mmol/L (0.4-1.9)
[2024-10-18 02:51] LABS: Bedside Glucose 211 mg/dL (74-106)
[2024-10-18] MEDS: Acetaminophen 325 MG Tablet 650 MG PO ×2 (05:48→16:51)
[2024-10-18] MEDS: Levothyroxine 88 MCG Tablet PO (05:48)
[2024-10-18] MEDS: Insulin Lispro 100 UNIT/ML INSULN.PEN SC ×3 (06:36→16:54)
[2024-10-18] MEDS: Budesonide Respules 0.5 MG/2 ML AMPUL.NEB. INHALATION ×2 (06:41→19:28)
[2024-10-18] MEDS: Albuterol 2.5 MG/3 ML VIAL.NEB. INHALATION (06:41)
[2024-10-18 06:48] LABS: Absolute Lymphocyte Count 0.67 X10^3/uL (0.83-4.51); Absolute Neutrophil Count 7.4 X10^3/uL (2.0-7.7); Basophil# 0.03 X10^3/uL; Basophil% 0.3 % (0-1); Eosinophil# 0.05 X10^3/uL; Eosinophils% 0.5 % (0-5); Hematocrit 37.7 % (37-47); Hemoglobin 12.1 g/dL (12.0-15.0); Lymphocyte # 0.67 X10^3/ul (0.83-4.51); Lymphocyte % 7.3 % (19-41); Mean Corp Hgb Conc 32.1 g/dL (32-36); Mean Corpuscular Hgb 31.1 pg (27.0-32.0); Mean Corpuscular Volume 96.9 fL (81-99); Mean Platelet Vol. 10.3 fl (6.2-12.0); Monocyte# 0.93 X10^3/uL; Monocyte% 10.1 % (0-10); NRBC Flagged by Analyzer 0 % (0-5); Neutrophil # 7.43 X10^3/uL (2.7-7.7); Neutrophil % 80.9 % (47-70); Platelet Count 255 K/mm3 (150-450); RBC Distribution Width CV 12.6 % (11.6-14.6); RBC Distribution Width SD 43.8 fl (35.1-43.9); Red Blood Count 3.89 M/mm3 (4.2-5.4); White Blood Count 9.2 K/mm3 (4.4-11.0)
[2024-10-18 06:56] LABS: Bedside Glucose 171 mg/dL (74-106)
[2024-10-18 07:43] LABS: ALB/GLOB Ratio 0.8 RATIO (0.9-2.4); AST(SGOT) 22 U/L (15-37); Alanine Aminotransfer ALT/SGPT 13 U/L (13-56); Albumin, Serum 2.7 g/dL (3.2-5.0); Alkaline Phosphatase 75 U/L (45-117); Anion Gap 4 (5-15); BUN 15 mg/dL (7-18); BUN/Creat Ratio 13.9 RATIO (10-20); Calcium,Total 8.1 mg/dL (8.5-10.1); Chloride 104 mmol/L (98-107); Creatinine, Serum 1.08 mg/dL (0.55-1.02); EST Glomerular Filtration Rate 51 mL/min (>60); Est Glom Filt Rate - Afr Amer 62 mL/min (>60); Estimated Creatinine Clearance 40.51 ml/min; Globulin 3.2 g/dL (2.2-4.2); Glucose 169 mg/dL (74-106); Potassium 3.6 mmol/L (3.5-5.1); Protein, Total 5.9 g/dL (6.4-8.2); Sodium Level 140 mmol/L (136-145)
[2024-10-18] MEDS: guaiFENesin 10 ML UDC (200MG/10ML) 20 ML PO (10:24)
[2024-10-18] MEDS: Ceftriaxone 2 GM in 0.9% Normal Saline (50mL MB+) 50 ML IV (10:24)
[2024-10-18] MEDS: levETIRAcetam 500 MG Tablet PO ×2 (10:26→21:42)
[2024-10-18] MEDS: Pantoprazole Sodium 40 MG Tablet PO (10:28)
[2024-10-18] MEDS: Lactobacillis Acidophilus 1 CAP PO ×2 (10:29→21:42)
[2024-10-18] MEDS: Carvedilol 25 MG Tablet PO ×2 (10:29→21:42)
[2024-10-18] MEDS: APIXABAN 5 MG TABLET PO ×2 (10:29→21:42)
[2024-10-18] MEDS: Ferrous Sulfate 325 MG Tablet PO (10:30)
[2024-10-18] MEDS: 0.9% Normal Saline (1000mL) 1,000 ML 100 ML IV (10:30)
[2024-10-18] MEDS: Sertraline 50 MG Tablet PO (10:30)
[2024-10-18] MEDS: Ondansetron 4 MG/2 ML Vial IV (11:40)
[2024-10-18] MEDS: 0.9% Saline Lock 10 ML Syringe IV (11:40)
[2024-10-18] MEDS: Azithromycin 500 MG in Dextrose 5%-Water (250mL Bag) 250 ML 250 MG IV (11:46)
--- NOTE | 2024-10-18 12:15 | PCM.PROGNOTE ---
Subjective Subjective Patient seen and examined. She complained of feeling weak and tired. She admits to wheezing a bit and has a cough which is dry. She denies any chest pain, palpitations, dizziness, nausea vomiting or any other symptoms. Review of systems otherwise negative. Objective Data Objective Data Vital Signs: Vital Signs Temp Pulse Resp BP Pulse Ox O2 Del Method O2 Flow Rate 97.7 F L 98 24 H 111/79 98 Nasal Cannula 2 10/18/24 09:00 10/18/24 09:00 10/18/24 09:00 10/18/24 09:00 10/18/24 09:00 10/18/24 10:00 10/18/24 10:19 Oxygen Flow Rate (L/min) 2 Oxygen Delivery Method Nasal Cannula Weight: 196 lb 13.965 oz Body Mass Index (BMI) 32.7 Intake & Output: Intake and Output for Last 24 Hours 10/16/24 10/17/24 10/18/24 23:59 23:59 23:59 Intake Total 1550 / 1750 1775 / 1775 Balance 1550 / 1750 1775 / 1775 Lab / Micro Data 10/18/24 06:18 10/18/24 06:18 Labs: Laboratory Results - last 24 hr 10/17/24 18:14: WBC 18.8 H, RBC 4.49, Hgb 14.1, Hct 42.6, MCV 94.9, MCH 31.4, MCHC 33.1, RDW Std Deviation 42.7, RDW Coeff of Bhupinder 12.5, Plt Count 303, MPV 10.3, Immature Gran % (Auto) 0.900, Neut % (Auto) 91.8 H, Lymph % (Auto) 2.1 L, [place] % (Auto) 3.9, Eos % (Auto) 0.8, Baso % (Auto) 0.5, Absolute Neuts (auto) 17.2 H, Absolute Lymphs (auto) 0.39 L, Nucleated RBC % 0, Sodium 136, Potassium 4.1, Chloride 100, Carbon Dioxide 31.0, Anion Gap 5, BUN 20 H, Creatinine 1.36 H, Estim Creat Clear Calc 32.44, Est GFR (MDRD) Af Amer 47 L, Est GFR (MDRD) Non-Af 39 L, BUN/Creatinine Ratio 14.7, Glucose 359 H, Calcium 9.2, Phosphorus 2.8, Magnesium 1.6, Total Bilirubin 0.60, AST 22, ALT 17, Alkaline Phosphatase 98, Total Protein 6.7, Albumin 3.0 L, Globulin 3.7, Albumin/Globulin Ratio 0.8 L, Lipase 28 10/17/24 18:20: Lactic Acid 3.2 H* 10/17/24 19:10: Urine Color Straw, Urine Clarity Clear, Urine pH 5.0, Ur Specific [place] 1.015, Urine Protein Negative, Urine Glucose (UA) 250 H, Urine Ketones Negative, Urine Occult Blood Negative, Urine Nitrite Negative, Urine Bilirubin Negative, Urine Urobilinogen Normal, Ur Leukocyte Esterase Negative, Urine RBC 0-5 SEEN, Urine WBC 0-5 SEEN, Ur Squamous Epith Cells 0-5 SEEN, Urine Bacteria 0 SEEN, Hyaline Casts 0-5 SEEN, Urine Mucus 1+ 10/17/24 23:05: Lactic Acid 1.7 10/17/24 23:19: POC Glucose 211 H 10/18/24 06:18: WBC 9.2, RBC 3.89 L, Hgb 12.1, Hct 37.7, MCV 96.9, MCH 31.1, MCHC 32.1, RDW Std Deviation 43.8, RDW Coeff of Bhupinder 12.6, Plt Count 255, MPV 10.3, Immature Gran % (Auto) 0.900, Neut % (Auto) 80.9 H, Lymph % (Auto) 7.3 L, [place] % (Auto) 10.1 H, Eos % (Auto) 0.5, Baso % (Auto) 0.3, Absolute Neuts (auto) 7.4, Absolute Lymphs (auto) 0.67 L, Nucleated RBC % 0, Sodium 140, Potassium 3.6, Chloride 104, Carbon Dioxide 31.0, Anion Gap 4 L, BUN 15, Creatinine 1.08 H, Estim Creat Clear Calc 40.51, Est GFR (MDRD) Af Amer 62, Est GFR (MDRD) Non-Af 51 L, BUN/Creatinine Ratio 13.9, Glucose 169 H, Calcium 8.1 L, Total Bilirubin 0.40, AST 22, ALT 13, Alkaline Phosphatase 75, Total Protein 5.9 L, Albumin 2.7 L, Globulin 3.2, Albumin/Globulin Ratio 0.8 L 10/18/24 06:34: POC Glucose 171 H Micro: Microbiology 10/18/24 02:45 Stool Enteric Bacteriology - Final 10/18/24 02:45 Stool Clostridioides difficile (PCR) - Final 10/17/24 23:55 Nasal Secretion MRSA (PCR) - Final 10/17/24 18:58 Urine, Clean Catch Legionella Antigen - Final 10/17/24 18:58 Urine, Clean Catch Streptococcus pneumoniae Antigen (M - Final 10/17/24 18:58 Mucosa - Nose Respiratory Panel (PCR) - Final Influenzae A Influenza A (Subtype H1) 10/17/24 18:50 Mucosa - Nose Coronavirus COVID-19 PCR - Final Radiography Diagnostic Testing: Radiology Impression Chest/Abdomen/Pelvis CT 10/17/24 18:19 IMPRESSION: 1. Multifocal infiltrates in both lungs most consistent with pneumonia. 2. Cholelithiasis. Electronically Signed: Cedric Da Silva MD at 20:35 EST , Physical Exam Const alert and oriented x3 Constitutional Narrative: weak and lethargic. General Appearance: cooperative HEENT normocephalic and head/scalp atraumatic Mouth: dry mucous membranes Eyes PERRL and EOMs intact bilaterally Neck no lymphadenopathy, supple and no JVD Lymph Lymphatic: no lymphadenopathy noted and no lymphedema noted Resp Resp Narrative: mildly diminished breath sounds bibasally, no wheezes or crackles. On 2L of oxygen by nasal canula. Cardio regular rate, regular rhythm, S1 normal heart sound, S2 normal heart sound and no murmurs GI normal to inspection, nondistended, normoactive bowel sounds, soft to palpation, non-tender and non-distended Extremity normal capillary refill, no clubbing, cyanosis or edema and no calf tenderness General Extremity: no tenderness to palpation of joints or extremities Skin General Skin Exam: no breakdown Neuro CN's II-XII intact bilaterally, no focal motor deficits and no sensory deficits noted Motor Exam: general weakness Psych thought process normal and cooperative Mood & Affect: flat affect Assessment & Plan Assessment/Plan (1) Community acquired pneumonia: (2) URI (upper respiratory infection): PLAN: Plan #Hypoxia due to post influenza pneumonia Patient tested positive for influenza. She came in with a complaint of generalized weakness symptoms of upper respiratory tract infection. There was concern for UTI so she had been seen in the ED the day before admission but workup for UTI was negative. Still felt unwell at home with positive coughing and shortness of breath which came into the ED. Was tested positive for influenza. Currently on IV Rocephin and azithromycin. Will start on Tamiflu since tested positive for influenza. Breathing treatments bronchodilators. Titrate oxygen to maintain saturation above 90%. #Type 2 diabetes mellitus with neuropathy: Oral meds on hold. Trulicity also on hold. Insulin sliding scale. Accu-Cheks ACHS. A1c pending. #History of heart failure with reduced ejection fraction Has known EF of 40% from previous echoes done in January 2024 which showed mild to moderate global hypokinesis of the left ventricle. On Coreg and losartan. Also on Lasix #History of CVA with residual left-sided weakness: On Eliquis and statin #History of paroxysmal A-fib: On Eliquis and Coreg. #Anxiety depression: On sertraline #History of seizure disorder: On Keppra #Hypothyroidism: On Synthroid #Hypertension: On losartan and Coreg. IV hydralazine as needed #Hyperlipidemia: On statin #GERD: On PPI #DVT prophylaxis: Already on Eliquis Charges/Coding Visit Charges Inpatient E&M: 27178 [facility] Hosp L3
[2024-10-18] MEDS: Menthol/Lanolin/Calamine/Znox 113 GM Tube 1 APPLIC TOPICAL ×3 (12:18→21:43)
[2024-10-18 12:21] LABS: Bedside Glucose 179 mg/dL (74-106)
--- NOTE | 2024-10-18 13:31 | CASEMGMT ---
COLLEEN CHIRINOS Assessment Face to Face with patient for initial transition planning/care coordination assessment. RN CANDIS introduced self and role at [facility], pt voices understanding. Pt is A&Ox4 and is resting comfortably in bed and is calm. Care providers, pharmacy, and demographics verified. Admitting dx: Hypoxia, PNA PCP: Becca Jacobs Specialists: denies Preferred Pharmacy: [facility] Insurance: [employer] A/B, [employer] Prescription Benefit: Yes LNOK: Leslie Iyer (Daughter), Shagufta Avina (Daughter) Living Arrangements: Pt states that she recently moved out of her apartment and moved into her daughter (Leslie) and SONG's home. This is a single story home with 3 steps to enter with a handrail. ADLs/IADLs: Pt requires assistance and the pt daughter provided this help Transportation: Pt does not drive. Pt daughter drives her. DME: Functioning [employer] with sufficient supplies. Rollator. Shower chair. Grab bars. Pt is currently requiring additional oxygen and may qualify for home oxygen use. A verbal list of local in-network DME companies were provided to the pt at this time. Pt prefers [facility] HHC/SNF: Reports HH Hx but cannot recall the name of the agency. Denies SNF Hx Pt?s goal: Return to PLOF Plan: TBD. Anticipate HH vs SNF. Follow oxygen. PT is recommending TCU for the pt. Pt states that she would rather DC home. Pt may be open to HH if she were to DC home. Pt states that this RN CANDIS can call the pt daughter. This RN CANDIS called the pt daughter, Leslie to f/u with DC planning. Leslie states that she would like to wait and see how the pt progresses in the hospital prior to making a final DC plan. Pt daughter denies further concerns at this time. CM/SW to follow. Aury Iyer RN, CM
[2024-10-18] MEDS: Oseltamivir Phosphate 75 MG Capsule PO (13:55)
[2024-10-18 14:29] LABS: Hemoglobin A1c 8.6 % (3.8-5.6)
[2024-10-18 17:23] LABS: Bedside Glucose 169 mg/dL (74-106)
[2024-10-18] MEDS: Oseltamivir Phosphate 30 MG Capsule PO (21:42)
[2024-10-18] MEDS: Atorvastatin Calcium 20 MG Tablet PO (21:52)
[2024-10-18] MEDS: Losartan Potassium 50 MG Tablet PO (21:52)
[2024-10-18 23:08] LABS: Bedside Glucose 120 mg/dL (74-106)
[2024-10-19] VITALS (8 sets, daily range): BP systolic 108–130; BP diastolic 54–83; PULSE 74–98; RESP 16–20; TEMP 36.8–37.6; O2SAT 94–98; BMI 33.0
[2024-10-19] MEDS: Ondansetron 4 MG/2 ML Vial IV ×2 (02:24→16:29)
[2024-10-19] MEDS: 0.9% Saline Lock 10 ML Syringe IV ×2 (02:24→16:29)
[2024-10-19] MEDS: Levothyroxine 88 MCG Tablet PO (06:22)
[2024-10-19 06:34] LABS: Absolute Lymphocyte Count 0.57 X10^3/uL (0.83-4.51); Absolute Neutrophil Count 7.4 X10^3/uL (2.0-7.7); Basophil# 0.04 X10^3/uL; Basophil% 0.5 % (0-1); Eosinophil# 0.01 X10^3/uL; Eosinophils% 0.1 % (0-5); Hematocrit 36.7 % (37-47); Hemoglobin 11.8 g/dL (12.0-15.0); Lymphocyte # 0.57 X10^3/ul (0.83-4.51); Lymphocyte % 6.6 % (19-41); Mean Corp Hgb Conc 32.2 g/dL (32-36); Mean Corpuscular Hgb 31.6 pg (27.0-32.0); Mean Corpuscular Volume 98.1 fL (81-99); Mean Platelet Vol. 10.9 fl (6.2-12.0); Monocyte# 0.57 X10^3/uL; Monocyte% 6.6 % (0-10); NRBC Flagged by Analyzer 0 % (0-5); Neutrophil # 7.43 X10^3/uL (2.7-7.7); Neutrophil % 85.4 % (47-70); POSITIVE DIFFERENTIAL YES; Platelet Count 212 K/mm3 (150-450); RBC Distribution Width CV 12.6 % (11.6-14.6); RBC Distribution Width SD 44.9 fl (35.1-43.9); Red Blood Count 3.74 M/mm3 (4.2-5.4); White Blood Count 8.7 K/mm3 (4.4-11.0)
[2024-10-19] MEDS: Insulin Lispro 100 UNIT/ML INSULN.PEN SC ×3 (06:46→16:27)
[2024-10-19 07:00] LABS: Anion Gap 6 (5-15); BUN 12 mg/dL (7-18); BUN/Creat Ratio 14.1 RATIO (10-20); Calcium,Total 8.4 mg/dL (8.5-10.1); Chloride 105 mmol/L (98-107); Creatinine, Serum 0.85 mg/dL (0.55-1.02); EST Glomerular Filtration Rate 67 mL/min (>60); Est Glom Filt Rate - Afr Amer 81 mL/min (>60); Estimated Creatinine Clearance 51.67 ml/min; Glucose 209 mg/dL (74-106); Potassium 3.8 mmol/L (3.5-5.1); Sodium Level 137 mmol/L (136-145)
[2024-10-19 07:05] LABS: Bedside Glucose 191 mg/dL (74-106)
[2024-10-19] MEDS: Budesonide Respules 0.5 MG/2 ML AMPUL.NEB. INHALATION ×2 (07:33→19:58)
[2024-10-19] MEDS: Ceftriaxone 2 GM in 0.9% Normal Saline (50mL MB+) 50 ML IV (08:11)
[2024-10-19] MEDS: APIXABAN 5 MG TABLET PO ×2 (08:11→21:45)
[2024-10-19] MEDS: Acetaminophen 325 MG Tablet 650 MG PO ×2 (08:11→18:24)
[2024-10-19] MEDS: Oseltamivir Phosphate 30 MG Capsule PO ×2 (08:17→21:45)
[2024-10-19] MEDS: Lactobacillis Acidophilus 1 CAP PO ×2 (08:17→21:45)
[2024-10-19] MEDS: Carvedilol 25 MG Tablet PO (08:18)
[2024-10-19] MEDS: Losartan Potassium 50 MG Tablet PO (08:18)
[2024-10-19] MEDS: Pantoprazole Sodium 40 MG Tablet PO (08:18)
[2024-10-19] MEDS: levETIRAcetam 500 MG Tablet PO ×2 (08:18→21:45)
[2024-10-19] MEDS: Sertraline 50 MG Tablet PO (08:19)
--- NOTE | 2024-10-19 09:26 | PN_ITS ---
Subjective Subjective Patient seen and examined. She says she is feeling a bit better today. She denied any dizziness, lightheadedness, nausea, vomiting or shortness of breath. Review of systems is otherwise negative. Objective Data Objective Data Vital Signs: Vital Signs Temp Pulse Resp BP Pulse Ox O2 Del Method O2 Flow Rate 98.7 F 98 18 130/75 H 96 Nasal Cannula 2 10/19/24 08:15 10/19/24 08:15 10/19/24 08:15 10/19/24 08:15 10/19/24 08:15 10/19/24 09:03 10/19/24 09:03 Oxygen Flow Rate (L/min) 2 Oxygen Delivery Method Nasal Cannula Weight: 198 lb 6.656 oz Body Mass Index (BMI) 33.0 Intake & Output: Intake and Output for Last 24 Hours 10/17/24 10/18/24 10/19/24 23:59 23:59 23:59 Intake Total 1550 / 1750 3216.67 / 3216.67 50 / 50 Output Total 550 / 550 Balance 1550 / 1750 2666.67 / 2666.67 50 / 50 Lab / Micro Data 10/19/24 04:35 10/19/24 04:35 Labs: Laboratory Results - last 24 hr 10/18/24 06:18: Hemoglobin A1c 8.6 H 10/18/24 11:44: POC Glucose 179 H 10/18/24 16:53: POC Glucose 169 H 10/18/24 21:40: POC Glucose 120 H 10/19/24 04:35: WBC 8.7, RBC 3.74 L, Hgb 11.8 L, Hct 36.7 L, MCV 98.1, MCH 31.6, MCHC 32.2, RDW Std Deviation 44.9 H, RDW Coeff of Bhupinder 12.6, Plt Count 212, MPV 10.9, Immature Gran % (Auto) 0.800, Neut % (Auto) 85.4 H, Lymph % (Auto) 6.6 L, [place] % (Auto) 6.6, Eos % (Auto) 0.1, Baso % (Auto) 0.5, Absolute Neuts (auto) 7.4, Absolute Lymphs (auto) 0.57 L, Nucleated RBC % 0, Sodium 137, Potassium 3.8, Chloride 105, Carbon Dioxide 26.0, Anion Gap 6, BUN 12, Creatinine 0.85, Estim Creat Clear Calc 51.67, Est GFR (MDRD) Af Amer 81, Est GFR (MDRD) Non-Af 67, BUN/Creatinine Ratio 14.1, Glucose 209 H, Calcium 8.4 L 10/19/24 06:45: POC Glucose 191 H Micro: Microbiology 10/18/24 02:45 Stool Enteric Bacteriology - Final 10/18/24 02:45 Stool Clostridioides difficile (PCR) - Final 10/17/24 23:55 Nasal Secretion MRSA (PCR) - Final 10/17/24 18:58 Urine, Clean Catch Legionella Antigen - Final 10/17/24 18:58 Urine, Clean Catch Streptococcus pneumoniae Antigen (M - Final 10/17/24 18:58 Mucosa - Nose Respiratory Panel (PCR) - Final Influenzae A Influenza A (Subtype H1) 10/17/24 18:50 Mucosa - Nose Coronavirus COVID-19 PCR - Final Physical Exam Const alert and oriented x3 Constitutional Narrative: still weak, but looks a bit better today. General Appearance: cooperative HEENT normocephalic and head/scalp atraumatic Eyes PERRL and EOMs intact bilaterally Neck no lymphadenopathy, supple and no JVD Lymph Lymphatic: no lymphadenopathy noted and no lymphedema noted Resp Resp Narrative: mildly diminished breath sounds bibasally, no wheezes or crackles. Still on 2L of oxygen by nasal canula. Cardio regular rate, regular rhythm, S1 normal heart sound, S2 normal heart sound and no murmurs GI normal to inspection, nondistended, normoactive bowel sounds, soft to palpation, non-tender and non-distended Extremity normal capillary refill, no clubbing, cyanosis or edema and no calf tenderness General Extremity: no tenderness to palpation of joints or extremities Skin General Skin Exam: no breakdown Neuro CN's II-XII intact bilaterally, no focal motor deficits and no sensory deficits noted Motor Exam: general weakness Psych thought process normal and cooperative Assessment & Plan Assessment/Plan (1) Community acquired pneumonia: (2) URI (upper respiratory infection): PLAN: Plan #Hypoxia due to post influenza pneumonia * Patient tested positive for influenza. She came in with a complaint of generalized weakness symptoms of upper respiratory tract infection. There was concern for UTI so she had been seen in the ED the day before admission but workup for UTI was negative. Still felt unwell at home with positive coughing and shortness of breath which came into the ED. * Was tested positive for influenza. Currently on IV Rocephin and azithromycin. * on Tamiflu since tested positive for influenza; to complete a 5 day course. * Breathing treatments bronchodilators. Titrate oxygen to maintain saturation above 90%. #Type 2 diabetes mellitus with neuropathy: * Oral meds on hold. Trulicity also on hold. * Insulin sliding scale. Accu-Cheks ACHS. * A1c pending. #History of heart failure with reduced ejection fraction * Has known EF of 40% from previous echoes done in January 2024 which showed mild to moderate global hypokinesis of the left ventricle. On Coreg and losartan. * Also on Lasix * not in exacerbation #History of CVA with residual left-sided weakness: On Eliquis and statin #History of paroxysmal A-fib: On Eliquis and Coreg. #Anxiety depression: On sertraline #History of seizure disorder: On Keppra #Hypothyroidism: On Synthroid #Hypertension: On losartan and Coreg. IV hydralazine as needed #Hyperlipidemia: On statin #GERD: On PPI #DVT prophylaxis: Already on Eliquis Charges/Coding Visit Charges Inpatient E&M: 85071 Subs Hosp L2
[2024-10-19] MEDS: Azithromycin 500 MG in Dextrose 5%-Water (250mL Bag) 250 ML 250 MG IV (09:33)
[2024-10-19] MEDS: Menthol/Lanolin/Calamine/Znox 113 GM Tube 1 APPLIC TOPICAL ×4 (11:14→21:45)
[2024-10-19] MEDS: Ferrous Sulfate 325 MG Tablet PO (11:15)
[2024-10-19 11:45] LABS: Bedside Glucose 177 mg/dL (74-106)
[2024-10-19] MEDS: Loperamide 2 MG Capsule PO (11:55)
[2024-10-19 16:52] LABS: Bedside Glucose 217 mg/dL (74-106)
[2024-10-19 18:24] LABS: Mucous, Urine 0 SEEN /hpf (<or=2+)
[2024-10-19 18:55] LABS: Color, Urine Yellow (Yellow); Glucose, Dipstick 50 mg/dl (Normal); Ketone-Dipstick Negative (Negative); Leukocyte Esterase-Dipstick 500 /ul (Negative); Nitrite-Dipstick Negative (Negative); Occult Blood-Urine 10 /ul (Negative); Protein-Dipstick 30 mg/dl (Negative); Urine Bilirubin Dipstick Negative (Negative); Urine Clarity Sl. Cloudy (Clear); Urine Urobilinogen Normal (Normal)
[2024-10-19 19:07] LABS: Bacteria RARE /hpf (None Seen); Red Blood Cells-Urine 0-5 SEEN /hpf (0-5); Squamous Epithelial Cells - UA 5-10 SEEN /hpf (5-10); White Blood Cells 5-10 SEEN /hpf (0-5)
[2024-10-19] MEDS: Atorvastatin Calcium 20 MG Tablet PO (21:45)
[2024-10-19 22:19] LABS: Bedside Glucose 130 mg/dL (74-106)
[2024-10-19] MEDS: Nystatin Powder 15gm Bottle 1 APPLIC TOPICAL (22:19)
[2024-10-20] VITALS (9 sets, daily range): BP systolic 93–131; BP diastolic 58–81; PULSE 77–101; RESP 16–20; TEMP 36.6–37.1; O2SAT 88–99; BMI 33.3
[2024-10-20] MEDS: Levothyroxine 88 MCG Tablet PO (06:10)
[2024-10-20 06:31] LABS: Bedside Glucose 136 mg/dL (74-106)
[2024-10-20 06:38] LABS: Absolute Lymphocyte Count 1.21 X10^3/uL (0.83-4.51); Absolute Neutrophil Count 3.3 X10^3/uL (2.0-7.7); Basophil# 0.05 X10^3/uL; Eosinophil# 0.04 X10^3/uL; Eosinophils% 0.8 % (0-5); Hematocrit 37.6 % (37-47); Hemoglobin 11.8 g/dL (12.0-15.0); Lymphocyte # 1.21 X10^3/ul (0.83-4.51); Lymphocyte % 23.4 % (19-41); Mean Corp Hgb Conc 31.4 g/dL (32-36); Mean Corpuscular Hgb 30.8 pg (27.0-32.0); Mean Corpuscular Volume 98.2 fL (81-99); Mean Platelet Vol. 10.2 fl (6.2-12.0); Monocyte# 0.56 X10^3/uL; Monocyte% 10.9 % (0-10); NRBC Flagged by Analyzer 0 % (0-5); Neutrophil # 3.27 X10^3/uL (2.7-7.7); Neutrophil % 63.3 % (47-70); Platelet Count 188 K/mm3 (150-450); RBC Distribution Width CV 12.7 % (11.6-14.6); RBC Distribution Width SD 45.2 fl (35.1-43.9); Red Blood Count 3.83 M/mm3 (4.2-5.4); White Blood Count 5.2 K/mm3 (4.4-11.0)
[2024-10-20 07:11] LABS: Anion Gap 3 (5-15); BUN 14 mg/dL (7-18); BUN/Creat Ratio 15.9 RATIO (10-20); Calcium,Total 8.2 mg/dL (8.5-10.1); Chloride 106 mmol/L (98-107); Creatinine, Serum 0.88 mg/dL (0.55-1.02); EST Glomerular Filtration Rate 65 mL/min (>60); Est Glom Filt Rate - Afr Amer 78 mL/min (>60); Estimated Creatinine Clearance 50.17 ml/min; Glucose 144 mg/dL (74-106); Potassium 3.8 mmol/L (3.5-5.1); Sodium Level 139 mmol/L (136-145)
[2024-10-20] MEDS: Budesonide Respules 0.5 MG/2 ML AMPUL.NEB. INHALATION ×2 (07:24→19:23)
[2024-10-20] MEDS: Acetaminophen 325 MG Tablet 650 MG PO ×3 (09:41→21:22)
[2024-10-20] MEDS: Lactobacillis Acidophilus 1 CAP PO ×2 (09:44→21:43)
[2024-10-20] MEDS: Carvedilol 25 MG Tablet PO ×2 (09:44→21:43)
[2024-10-20] MEDS: Menthol/Lanolin/Calamine/Znox 113 GM Tube 1 APPLIC TOPICAL ×3 (09:44→21:43)
[2024-10-20] MEDS: Losartan Potassium 50 MG Tablet PO ×2 (09:44→21:43)
[2024-10-20] MEDS: Pantoprazole Sodium 40 MG Tablet PO (09:45)
[2024-10-20] MEDS: Sertraline 50 MG Tablet PO (09:45)
[2024-10-20] MEDS: levETIRAcetam 500 MG Tablet PO ×2 (09:45→21:44)
[2024-10-20] MEDS: Oseltamivir Phosphate 30 MG Capsule PO ×2 (09:45→21:44)
[2024-10-20] MEDS: Nystatin Powder 15gm Bottle 1 APPLIC TOPICAL ×2 (09:45→21:44)
[2024-10-20] MEDS: APIXABAN 5 MG TABLET PO ×2 (09:45→21:43)
[2024-10-20] MEDS: Ceftriaxone 2 GM in 0.9% Normal Saline (50mL MB+) 50 ML IV (09:53)
--- NOTE | 2024-10-20 10:51 | PN_ITS ---
Subjective Subjective Patient seen and examined. She had no active complaints. She still feels weak but feels a bit better today. Review of systems otherwise negative. She has remained hemodynamically stable. Objective Data Objective Data Vital Signs: Vital Signs Temp Pulse Resp BP Pulse Ox O2 Del Method O2 Flow Rate 98.3 F 101 H 18 111/74 98 Nasal Cannula 2 10/20/24 09:40 10/20/24 09:40 10/20/24 09:40 10/20/24 09:40 10/20/24 09:40 10/20/24 09:40 10/20/24 09:40 Oxygen Flow Rate (L/min) 2 Oxygen Delivery Method Nasal Cannula Weight: 200 lb 6.403 oz Body Mass Index (BMI) 33.3 Intake & Output: Intake and Output for Last 24 Hours 10/18/24 10/19/24 10/20/24 23:59 23:59 23:59 Intake Total 3216.67 / 3216.67 855 / 975 120 / 120 Output Total 550 / 550 500 / 500 Balance 2666.67 / 2666.67 355 / 475 120 / 120 Lab / Micro Data 10/20/24 06:16 10/20/24 06:16 Labs: Laboratory Results - last 24 hr 10/19/24 11:11: POC Glucose 177 H 10/19/24 16:24: POC Glucose 217 H 10/19/24 18:20: Urine Color Yellow, Urine Clarity Sl. Cloudy, Urine pH 6.0, Ur Specific [place] 1.020, Urine Protein 30 H, Urine Glucose (UA) 50 H, Urine Ketones Negative, Urine Occult Blood 10 H, Urine Nitrite Negative, Urine Bilirubin Negative, Urine Urobilinogen Normal, Ur Leukocyte Esterase 500 H, Urine RBC 0-5 SEEN, Urine WBC 5-10 SEEN, Ur Squamous Epith Cells 5-10 SEEN, Urine Bacteria RARE, Urine Mucus 0 SEEN 10/19/24 21:40: POC Glucose 130 H 10/20/24 06:10: POC Glucose 136 H 10/20/24 06:16: WBC 5.2, RBC 3.83 L, Hgb 11.8 L, Hct 37.6, MCV 98.2, MCH 30.8, M CHC 31.4 L, RDW Std Deviation 45.2 H, RDW Coeff of Bhupinder 12.7, Plt Count 188, MPV 10.2, Immature Gran % (Auto) 0.600, Neut % (Auto) 63.3, Lymph % (Auto) 23.4, [place] % (Auto) 10.9 H, Eos % (Auto) 0.8, Baso % (Auto) 1.0, Absolute Neuts (auto) 3.3, Absolute Lymphs (auto) 1.21, Nucleated RBC % 0, Sodium 139, Potassium 3.8, Chloride 106, Carbon Dioxide 30.0, Anion Gap 3 L, BUN 14, Creatinine 0.88, Estim Creat Clear Calc 50.17, Est GFR (MDRD) Af Amer 78, Est GFR (MDRD) Non-Af 65, BUN/Creatinine Ratio 15.9, Glucose 144 H, Calcium 8.2 L Micro: Microbiology 10/17/24 20:00 Blood Culture (Wb) #2 - Left Hand Blood Culture - Preliminary No growth in 48 hours. 10/17/24 19:46 Blood Culture (Wb) - Anticubital Left Blood Culture - Preliminary No growth in 48 hours. 10/17/24 18:58 Mucosa - Nose Respiratory Panel (PCR) - Final Influenzae A Influenza A (Subtype H1) 10/18/24 02:45 Stool Enteric Bacteriology - Final 10/18/24 02:45 Stool Clostridioides difficile (PCR) - Final 10/17/24 23:55 Nasal Secretion MRSA (PCR) - Final 10/17/24 18:58 Urine, Clean Catch Legionella Antigen - Final 10/17/24 18:58 Urine, Clean Catch Streptococcus pneumoniae Antigen (M - Final 10/17/24 18:50 Mucosa - Nose Coronavirus COVID-19 PCR - Final Physical Exam Const alert and oriented x3 Constitutional Narrative: still weak, but looks better today. General Appearance: cooperative HEENT normocephalic and head/scalp atraumatic Eyes PERRL and EOMs intact bilaterally Neck no lymphadenopathy, supple and no JVD Lymph Lymphatic: no lymphadenopathy noted and no lymphedema noted Resp Resp Narrative: mildly diminished breath sounds bibasally, no wheezes or crackles. Still on 2L of oxygen by nasal canula. Cardio regular rate, regular rhythm, S1 normal heart sound, S2 normal heart sound and no murmurs GI normal to inspection, nondistended, normoactive bowel sounds, soft to palpation, non-tender and non-distended Extremity normal capillary refill, no clubbing, cyanosis or edema and no calf tenderness General Extremity: no tenderness to palpation of joints or extremities Skin General Skin Exam: no breakdown Neuro CN's II-XII intact bilaterally, no focal motor deficits and no sensory deficits noted Motor Exam: general weakness Psych thought process normal and cooperative Mood & Affect: flat affect Assessment & Plan Assessment/Plan (1) Community acquired pneumonia: (2) URI (upper respiratory infection): PLAN: Plan #Hypoxia due to post influenza pneumonia * Patient tested positive for influenza. She came in with a complaint of generalized weakness symptoms of upper respiratory tract infection. There was concern for UTI so she had been seen in the ED the day before admission but workup for UTI was negative. Still felt unwell at home with positive coughing and shortness of breath which came into the ED. * Was tested positive for influenza. Currently on IV Rocephin and azithromycin. * on Tamiflu since she tested positive for influenza; to complete a 5 day course. * Breathing treatments bronchodilators. Titrate oxygen to maintain saturation above 90%. #Type 2 diabetes mellitus with neuropathy: * Oral meds on hold. Trulicity also on hold. * Insulin sliding scale. Accu-Cheks ACHS. * A1c is 8.6. #History of heart failure with reduced ejection fraction * Has known EF of 40% from previous echoes done in January 2024 which showed mild to moderate global hypokinesis of the left ventricle. On Coreg and losartan. * Also on Lasix * not in exacerbation #History of CVA with residual left-sided weakness: On Eliquis and statin #History of paroxysmal A-fib: On Eliquis and Coreg. #Anxiety depression: On sertraline #History of seizure disorder: On Keppra #Hypothyroidism: On Synthroid #Hypertension: On losartan and Coreg. IV hydralazine as needed #Hyperlipidemia: On statin #GERD: On PPI #DVT prophylaxis: Already on Eliquis Disposition: Anticipate discharge over the next day or 2. Charges/Coding Visit Charges Inpatient E&M: 23509 Subs Hosp L2
[2024-10-20] MEDS: Azithromycin 500 MG in Dextrose 5%-Water (250mL Bag) 250 ML 250 MG IV (10:55)
[2024-10-20] MEDS: Ferrous Sulfate 325 MG Tablet PO (11:21)
[2024-10-20] MEDS: Insulin Lispro 100 UNIT/ML INSULN.PEN SC ×3 (11:22→21:43)
[2024-10-20 12:25] LABS: Bedside Glucose 208 mg/dL (74-106)
[2024-10-20] MEDS: 0.9% Saline Lock 10 ML Syringe IV (14:21)
[2024-10-20 15:07] LABS: Mycoplasma Pneum AB IgG 244 U/mL (0-99); Mycoplasma pneum. AB IgM < 770 U/mL (0-769)
[2024-10-20 17:35] LABS: Procalcitonin 2.59 ng/mL (0.00-0.09)
[2024-10-20] MEDS: Loperamide 2 MG Capsule PO (17:50)
[2024-10-20 18:29] LABS: Bedside Glucose 177 mg/dL (74-106)
[2024-10-20] MEDS: Atorvastatin Calcium 20 MG Tablet PO (21:44)
[2024-10-20 22:14] LABS: Bedside Glucose 186 mg/dL (74-106)
[2024-10-21] VITALS (12 sets, daily range): BP systolic 99–152; BP diastolic 61–95; PULSE 72–86; RESP 16–24; TEMP 36.4–37.1; O2SAT 95–100
[2024-10-21 06:19] LABS: Absolute Lymphocyte Count 1.36 X10^3/uL (0.83-4.51); Absolute Neutrophil Count 2.6 X10^3/uL (2.0-7.7); Basophil# 0.03 X10^3/uL; Basophil% 0.7 % (0-1); Eosinophil# 0.07 X10^3/uL; Eosinophils% 1.5 % (0-5); Hematocrit 36.9 % (37-47); Hemoglobin 11.7 g/dL (12.0-15.0); Lymphocyte # 1.36 X10^3/ul (0.83-4.51); Lymphocyte % 29.8 % (19-41); Mean Corp Hgb Conc 31.7 g/dL (32-36); Mean Corpuscular Hgb 31.2 pg (27.0-32.0); Mean Corpuscular Volume 98.4 fL (81-99); Mean Platelet Vol. 10.3 fl (6.2-12.0); Monocyte# 0.46 X10^3/uL; Monocyte% 10.1 % (0-10); NRBC Flagged by Analyzer 0 % (0-5); Neutrophil # 2.62 X10^3/uL (2.7-7.7); Neutrophil % 57.5 % (47-70); Platelet Count 191 K/mm3 (150-450); RBC Distribution Width CV 12.6 % (11.6-14.6); Red Blood Count 3.75 M/mm3 (4.2-5.4); White Blood Count 4.6 K/mm3 (4.4-11.0)
[2024-10-21] MEDS: Insulin Lispro 100 UNIT/ML INSULN.PEN SC ×3 (06:30→21:06)
[2024-10-21] MEDS: Levothyroxine 88 MCG Tablet PO (06:30)
[2024-10-21 06:42] LABS: Anion Gap 3 (5-15); BUN 12 mg/dL (7-18); BUN/Creat Ratio 13.2 RATIO (10-20); Calcium,Total 8.4 mg/dL (8.5-10.1); Chloride 108 mmol/L (98-107); Creatinine, Serum 0.91 mg/dL (0.55-1.02); EST Glomerular Filtration Rate 62 mL/min (>60); Est Glom Filt Rate - Afr Amer 75 mL/min (>60); Estimated Creatinine Clearance 48.52 ml/min; Glucose 185 mg/dL (74-106); Potassium 3.7 mmol/L (3.5-5.1); Sodium Level 140 mmol/L (136-145)
[2024-10-21 06:50] LABS: Bedside Glucose 180 mg/dL (74-106)
[2024-10-21] MEDS: Budesonide Respules 0.5 MG/2 ML AMPUL.NEB. INHALATION ×2 (06:55→19:36)
[2024-10-21] MEDS: 0.9% Saline Lock 10 ML Syringe IV ×2 (09:25→12:13)
[2024-10-21] MEDS: Lactobacillis Acidophilus 1 CAP PO ×2 (09:26→21:04)
[2024-10-21] MEDS: Azithromycin 500 MG in Dextrose 5%-Water (250mL Bag) 250 ML 250 MG IV (09:26)
[2024-10-21] MEDS: APIXABAN 5 MG TABLET PO ×2 (09:26→21:06)
[2024-10-21] MEDS: levETIRAcetam 500 MG Tablet PO ×2 (09:27→21:06)
[2024-10-21] MEDS: Sertraline 50 MG Tablet PO (09:27)
[2024-10-21] MEDS: Oseltamivir Phosphate 30 MG Capsule PO ×2 (09:27→21:06)
[2024-10-21] MEDS: Menthol/Lanolin/Calamine/Znox 113 GM Tube 1 APPLIC TOPICAL ×4 (09:27→21:04)
[2024-10-21] MEDS: Nystatin Powder 15gm Bottle 1 APPLIC TOPICAL ×2 (09:28→21:05)
[2024-10-21] MEDS: Ceftriaxone 2 GM in 0.9% Normal Saline (50mL MB+) 50 ML IV (11:02)
[2024-10-21 11:46] LABS: Bedside Glucose 249 mg/dL (74-106)
[2024-10-21] MEDS: Pantoprazole Sodium 40 MG Tablet PO (12:13)
[2024-10-21] MEDS: Ferrous Sulfate 325 MG Tablet PO (12:13)
[2024-10-21] MEDS: Carvedilol 25 MG Tablet PO ×2 (12:22→21:05)
--- NOTE | 2024-10-21 12:30 | PN_ITS ---
Subjective Subjective Patient seen and examined. She had no active complaints. She still feels weak. Review of systems otherwise negative. She is on 2 L of oxygen. Objective Data Objective Data Vital Signs: Vital Signs Temp Pulse Resp BP Pulse Ox O2 Del Method O2 Flow Rate 97.5 F L 74 18 126/84 H 95 Nasal Cannula 2 10/21/24 12:18 10/21/24 12:18 10/21/24 12:18 10/21/24 12:18 10/21/24 12:18 10/21/24 12:18 10/21/24 12:18 Oxygen Flow Rate (L/min) 2 Oxygen Delivery Method Nasal Cannula Weight: 200 lb 6.403 oz Body Mass Index (BMI) 33.3 Intake & Output: Intake and Output for Last 24 Hours 10/19/24 10/20/24 10/21/24 23:59 23:59 23:59 Intake Total 855 / 975 1285 / 1285 505 / 505 Output Total 500 / 500 Balance 355 / 475 1285 / 1285 505 / 505 Lab / Micro Data 10/21/24 06:06 10/21/24 06:06 Labs: Laboratory Results - last 24 hr 10/18/24 06:18: Procalcitonin 2.59 H, Mycoplasma pneumon IgG 244 H, Mycoplasma pneumon IgM < 770 10/20/24 17:10: POC Glucose 177 H 10/20/24 21:40: POC Glucose 186 H 10/21/24 06:06: WBC 4.6, RBC 3.75 L, Hgb 11.7 L, Hct 36.9 L, MCV 98.4, MCH 31.2, MCHC 31.7 L, RDW Std Deviation 45.0 H, RDW Coeff of Bhupinder 12.6, Plt Count 191, MPV 10.3, Immature Gran % (Auto) 0.400, Neut % (Auto) 57.5, Lymph % (Auto) 29.8, [place] % (Auto) 10.1 H, Eos % (Auto) 1.5, Baso % (Auto) 0.7, Absolute Neuts (auto) 2.6, Absolute Lymphs (auto) 1.36, Nucleated RBC % 0, Sodium 140, Potassium 3.7, Chloride 108 H, Carbon Dioxide 29.0, Anion Gap 3 L, BUN 12, Creatinine 0.91, Estim Creat Clear Calc 48.52, Est GFR (MDRD) Af Amer 75, Est GFR (MDRD) Non-Af 62, BUN/Creatinine Ratio 13.2, Glucose 185 H, Calcium 8.4 L 10/21/24 06:29: POC Glucose 180 H 10/21/24 11:27: POC Glucose 249 H Micro: Microbiology 10/17/24 20:00 Blood Culture (Wb) #2 - Left Hand Blood Culture - Preliminary No growth in 48 hours. 10/17/24 19:46 Blood Culture (Wb) - Anticubital Left Blood Culture - Preliminary No growth in 48 hours. 10/17/24 18:58 Mucosa - Nose Respiratory Panel (PCR) - Final Influenzae A Influenza A (Subtype H1) 10/18/24 02:45 Stool Enteric Bacteriology - Final 10/18/24 02:45 Stool Clostridioides difficile (PCR) - Final 10/17/24 23:55 Nasal Secretion MRSA (PCR) - Final 10/17/24 18:58 Urine, Clean Catch Legionella Antigen - Final 10/17/24 18:58 Urine, Clean Catch Streptococcus pneumoniae Antigen (M - Final 10/17/24 18:50 Mucosa - Nose Coronavirus COVID-19 PCR - Final Physical Exam Const alert and oriented x3 Constitutional Narrative: still feels weak. General Appearance: cooperative HEENT normocephalic and head/scalp atraumatic Eyes PERRL and EOMs intact bilaterally Neck no lymphadenopathy, supple and no JVD Lymph Lymphatic: no lymphadenopathy noted and no lymphedema noted Resp Resp Narrative: mildly diminished breath sounds bibasally, no wheezes or crackles. Still on 2L of oxygen by nasal canula. Cardio regular rate, regular rhythm, S1 normal heart sound, S2 normal heart sound and no murmurs GI normal to inspection, nondistended, normoactive bowel sounds, soft to palpation, non-tender and non-distended Extremity normal capillary refill, no clubbing, cyanosis or edema and no calf tenderness General Extremity: no tenderness to palpation of joints or extremities Skin General Skin Exam: no breakdown Neuro CN's II-XII intact bilaterally, no focal motor deficits and no sensory deficits noted Motor Exam: general weakness Psych thought process normal and cooperative Mood & Affect: flat affect Assessment & Plan Assessment/Plan (1) Community acquired pneumonia: (2) URI (upper respiratory infection): PLAN: Plan #Hypoxia due to post influenza pneumonia * Patient tested positive for influenza. * She came in with a complaint of generalized weakness symptoms of upper respiratory tract infection. There was concern for UTI so she had been seen in the ED the day before admission but workup for UTI was negative. Still felt unwell at home with positive coughing and shortness of breath which came into the ED. * Currently on IV Rocephin and azithromycin. * on tamiflu * blood cultures show no growth in 48 hours. * on Tamiflu since she tested positive for influenza; to complete a 5 day course. * Breathing treatments bronchodilators. Titrate oxygen to maintain saturation above 90%. #Type 2 diabetes mellitus with neuropathy: * Oral meds on hold. Trulicity also on hold. * Insulin sliding scale. Accu-Cheks ACHS. * A1c is 8.6. #History of heart failure with reduced ejection fraction * Has known EF of 40% from previous echoes done in January 2024 which showed mild to moderate global hypokinesis of the left ventricle. On Coreg and losartan. * Also on Lasix * not in exacerbation #History of CVA with residual left-sided weakness: On Eliquis and statin #History of paroxysmal A-fib: On Eliquis and Coreg. #Anxiety depression: On sertraline #History of seizure disorder: On Keppra #Hypothyroidism: On Synthroid #Hypertension: On losartan and Coreg. IV hydralazine as needed #Hyperlipidemia: On statin #GERD: On PPI #DVT prophylaxis: Already on Eliquis Disposition: Anticipate discharge over the next 24-48 hours. Charges/Coding Visit Charges Inpatient E&M: 18904 Subs Hosp L2
--- NOTE | 2024-10-21 14:39 | CASEMGMT ---
Discharge Planning A list of?SNF and HH providers including quality and resource use data and consistent with the patient's preferred geographic region, medical needs, and insurance network was created in [facility].? This list was provided to the RN CM. Rema Dasilva, Discharge Planning Asst.
--- NOTE | 2024-10-21 14:49 | CASEMGMT ---
Addendum entered by Xin Lester 10/21/24 15:06: Daughter Leslie voiced interest in TCU, RN CM updated that we could inquire about bed availability. RN CM updated SW. Original Note: RN CANDIS called daughter, Leslie, to discuss discharge planning. RN CM reviewed progress with therapy, daughter voiced concern and states she feels patient would benefit from SNF at discharge. RN CM updated daughter that patient has been telling therapy that her daughter will help her at home. RN CM encouraged daughter to discuss needs at discharge and daughter's capability to assist patient at home. Daughter states she will be in this evening with sister and will discuss with patient. RN CM updated that SNF and HHC list will be left with patient to review. Daughter voiced understanding and appreciation. RN CM in to patient's room to discuss progress with therapy with patient. Patient states she was able to toilet self at home prior to admission and states she is requiring help. RN CM updated patient regarding daughter's concern for caring for patient at home as she is weaker. RN CM updated patient regarding SNF vs HHC levels or care and coverage. Patient states she is willing to consider SNF but would like to discuss with daughters when they visit. RN CM updated patient that RN CM will follow-up with patient and daughter in the morning. Patient had no further questions or concerns. CM will continue to follow this patient and plan for a safe discharge.
--- NOTE | 2024-10-21 16:14 | CASEMGMT ---
SW met with patient and her daughter Leslie. Discussed discharge options. Leslie and patient would be agreeable to TCU. However, Leslie said she will be off the next couple of weeks and is willing to help patient as long as she is a one person assist. SW reviewed therapy notes and patient was CG 38'. However, patient did require assistance getting up and down off of toilet and chair. It was decided that SW will check with TCU tomorrow to see if they can take patient. SW will notify Leslie whether or not TCU can take patient. See how patient does with therapy tomorrow. Leslie and her sister will also talk with patient together. SW to check back tomorrow. Rebecac Casanova K[employer] REGENERATOR OPERATOR ABRAHAM
[2024-10-21 16:34] LABS: Bedside Glucose 128 mg/dL (74-106)
[2024-10-21] MEDS: Acetaminophen 325 MG Tablet 650 MG PO (18:58)
[2024-10-21] MEDS: Losartan Potassium 50 MG Tablet PO (21:06)
[2024-10-21] MEDS: Atorvastatin Calcium 20 MG Tablet PO (21:06)
[2024-10-21 21:33] LABS: Bedside Glucose 155 mg/dL (74-106)
[2024-10-22] VITALS (8 sets, daily range): BP systolic 106–148; BP diastolic 61–99; PULSE 61–89; RESP 16–18; TEMP 36.4–36.8; O2SAT 93–100; BMI 33.1
[2024-10-22] MEDS: Levothyroxine 88 MCG Tablet PO (06:25)
[2024-10-22 06:44] LABS: Bedside Glucose 132 mg/dL (74-106)
[2024-10-22] MEDS: Budesonide Respules 0.5 MG/2 ML AMPUL.NEB. INHALATION (06:46)
[2024-10-22 07:32] LABS: Absolute Lymphocyte Count 1.26 X10^3/uL (0.83-4.51); Absolute Neutrophil Count 3.2 X10^3/uL (2.0-7.7); Basophil# 0.03 X10^3/uL; Basophil% 0.6 % (0-1); Hematocrit 37.8 % (37-47); Hemoglobin 11.8 g/dL (12.0-15.0); Lymphocyte # 1.26 X10^3/ul (0.83-4.51); Mean Corp Hgb Conc 31.2 g/dL (32-36); Mean Corpuscular Hgb 30.4 pg (27.0-32.0); Mean Corpuscular Volume 97.4 fL (81-99); Mean Platelet Vol. 10.6 fl (6.2-12.0); Monocyte# 0.45 X10^3/uL; Monocyte% 8.9 % (0-10); NRBC Flagged by Analyzer 0 % (0-5); Neutrophil # 3.18 X10^3/uL (2.7-7.7); Neutrophil % 63.1 % (47-70); Platelet Count 189 K/mm3 (150-450); RBC Distribution Width CV 12.7 % (11.6-14.6); RBC Distribution Width SD 44.9 fl (35.1-43.9); Red Blood Count 3.88 M/mm3 (4.2-5.4)
[2024-10-22 07:49] LABS: Anion Gap 1 (5-15); BUN 10 mg/dL (7-18); BUN/Creat Ratio 12.8 RATIO (10-20); Calcium,Total 8.5 mg/dL (8.5-10.1); Chloride 108 mmol/L (98-107); Creatinine, Serum 0.78 mg/dL (0.55-1.02); EST Glomerular Filtration Rate 74 mL/min (>60); Est Glom Filt Rate - Afr Amer 89 mL/min (>60); Glucose 162 mg/dL (74-106); Potassium 3.8 mmol/L (3.5-5.1); Sodium Level 140 mmol/L (136-145)
--- NOTE | 2024-10-22 09:20 | NURSING ---
charge nurse monitoring telemetry at nurses station
[2024-10-22] MEDS: Losartan Potassium 50 MG Tablet PO ×2 (09:53→21:56)
[2024-10-22] MEDS: Carvedilol 25 MG Tablet PO ×2 (09:53→21:55)
[2024-10-22] MEDS: Ceftriaxone 2 GM in 0.9% Normal Saline (50mL MB+) 50 ML IV (09:54)
[2024-10-22] MEDS: Sertraline 50 MG Tablet PO (10:42)
[2024-10-22] MEDS: Lactobacillis Acidophilus 1 CAP PO ×2 (10:42→21:54)
[2024-10-22] MEDS: Pantoprazole Sodium 40 MG Tablet PO (10:42)
[2024-10-22] MEDS: levETIRAcetam 500 MG Tablet PO ×2 (10:42→21:56)
[2024-10-22] MEDS: APIXABAN 5 MG TABLET PO ×2 (10:42→21:56)
[2024-10-22] MEDS: Oseltamivir Phosphate 30 MG Capsule PO ×2 (10:43→21:57)
[2024-10-22] MEDS: Menthol/Lanolin/Calamine/Znox 113 GM Tube 1 APPLIC TOPICAL ×4 (10:45→21:55)
[2024-10-22] MEDS: Nystatin Powder 15gm Bottle 1 APPLIC TOPICAL ×2 (10:45→21:57)
--- NOTE | 2024-10-22 11:18 | NURSING ---
SPO2 had been 96% @ 2 L. Turned off while sitting in chair. Rechecked and SPO@ 88%. Replaced NC and turned back on 2L
[2024-10-22] MEDS: Azithromycin 500 MG in Dextrose 5%-Water (250mL Bag) 250 ML 250 MG IV (11:36)
[2024-10-22 12:29] LABS: Bedside Glucose 268 mg/dL (74-106)
--- NOTE | 2024-10-22 13:15 | PN_ITS ---
Subjective Subjective Patient seen and examined. She had no active complaints and felt well. Review of systems is otherwise negative. She remains on 2L of oxygen by nasal canula. Objective Data Objective Data Vital Signs: Vital Signs Temp Pulse Resp BP Pulse Ox O2 Del Method O2 Flow Rate 97.6 F L 83 18 124/99 H 99 Nasal Cannula 2 10/22/24 09:00 10/22/24 09:00 10/22/24 09:00 10/22/24 09:00 10/22/24 09:00 10/22/24 10:00 10/22/24 10:00 Oxygen Flow Rate (L/min) 2 Oxygen Delivery Method Nasal Cannula Weight: 199 lb 1.239 oz Body Mass Index (BMI) 33.1 Intake & Output: Intake and Output for Last 24 Hours 10/20/24 10/21/24 10/22/24 23:59 23:59 23:59 Intake Total 1285 / 1285 955 / 955 Balance 1285 / 1285 955 / 955 Lab / Micro Data 10/22/24 07:13 10/22/24 07:13 Labs: Laboratory Results - last 24 hr 10/21/24 16:12: POC Glucose 128 H 10/21/24 21:03: POC Glucose 155 H 10/22/24 06:23: POC Glucose 132 H 10/22/24 07:13: WBC 5.0, RBC 3.88 L, Hgb 11.8 L, Hct 37.8, MCV 97.4, MCH 30.4, M CHC 31.2 L, RDW Std Deviation 44.9 H, RDW Coeff of Bhupinder 12.7, Plt Count 189, MPV 10.6, Immature Gran % (Auto) 0.400, Neut % (Auto) 63.1, Lymph % (Auto) 25.0, [place] % (Auto) 8.9, Eos % (Auto) 2.0, Baso % (Auto) 0.6, Absolute Neuts (auto) 3.2, Absolute Lymphs (auto) 1.26, Nucleated RBC % 0, Sodium 140, Potassium 3.8, Chloride 108 H, Carbon Dioxide 31.0, Anion Gap 1 L, BUN 10, Creatinine 0.78, Estim Creat Clear Calc 55.00, Est GFR (MDRD) Af Amer 89, Est GFR (MDRD) Non-Af 74, BUN/Creatinine Ratio 12.8, Glucose 162 H, Calcium 8.5 10/22/24 12:11: POC Glucose 268 H Micro: Microbiology 10/17/24 20:00 Blood Culture (Wb) #2 - Left Hand Blood Culture - Preliminary No growth in 48 hours. 10/17/24 19:46 Blood Culture (Wb) - Anticubital Left Blood Culture - Preliminary No growth in 48 hours. 10/17/24 18:58 Mucosa - Nose Respiratory Panel (PCR) - Final Influenzae A Influenza A (Subtype H1) 10/18/24 02:45 Stool Enteric Bacteriology - Final 10/18/24 02:45 Stool Clostridioides difficile (PCR) - Final 10/17/24 23:55 Nasal Secretion MRSA (PCR) - Final 10/17/24 18:58 Urine, Clean Catch Legionella Antigen - Final 10/17/24 18:58 Urine, Clean Catch Streptococcus pneumoniae Antigen (M - Final 10/17/24 18:50 Mucosa - Nose Coronavirus COVID-19 PCR - Final Physical Exam Const alert and oriented x3 Constitutional Narrative: still feels weak. General Appearance: cooperative HEENT normocephalic and head/scalp atraumatic Eyes PERRL and EOMs intact bilaterally Neck no lymphadenopathy, supple and no JVD Lymph Lymphatic: no lymphadenopathy noted and no lymphedema noted Resp Resp Narrative: mildly diminished breath sounds bibasally, no wheezes or crackles. Still on 2L of oxygen by nasal canula. Cardio regular rate, regular rhythm, S1 normal heart sound, S2 normal heart sound and no murmurs GI normal to inspection, nondistended, normoactive bowel sounds, soft to palpation, non-tender and non-distended Extremity normal capillary refill, no clubbing, cyanosis or edema and no calf tenderness General Extremity: no tenderness to palpation of joints or extremities Skin General Skin Exam: no breakdown Neuro CN's II-XII intact bilaterally, no focal motor deficits and no sensory deficits noted Motor Exam: general weakness Psych thought process normal and cooperative Assessment & Plan Assessment/Plan (1) Community acquired pneumonia: (2) URI (upper respiratory infection): PLAN: Plan #Hypoxia due to post influenza pneumonia * Patient tested positive for influenza. * She came in with a complaint of generalized weakness symptoms of upper respiratory tract infection. There was concern for UTI so she had been seen in the ED the day before admission but workup for UTI was negative. Still felt unwell at home with positive coughing and shortness of breath which came into the ED. * Currently on IV Rocephin and azithromycin. to complete a 5 day course, with last dose being tomorrow. * blood cultures show no growth in 48 hours. * on Tamiflu since she tested positive for influenza; to complete a 5 day course. * Breathing treatments bronchodilators. Titrate oxygen to maintain saturation above 90%. #Type 2 diabetes mellitus with neuropathy: * Oral meds on hold. Trulicity also on hold. * Insulin sliding scale. Accu-Cheks ACHS. * A1c is 8.6. #History of heart failure with reduced ejection fraction * Has known EF of 40% from previous echoes done in January 2024 which showed mild to moderate global hypokinesis of the left ventricle. On Coreg and losartan. * Also on Lasix * not in exacerbation #History of CVA with residual left-sided weakness: On Eliquis and statin #History of paroxysmal A-fib: On Eliquis and Coreg. #Anxiety depression: On sertraline #History of seizure disorder: On Keppra #Hypothyroidism: On Synthroid #Hypertension: On losartan and Coreg. IV hydralazine as needed #Hyperlipidemia: On statin #GERD: On PPI #DVT prophylaxis: Already on Eliquis Disposition: Patient wishes to go home but her daughter wants her to go to a rehab facility or SNF. Case management on board. Charges/Coding Visit Charges Inpatient E&M: 55558 Subs Hosp L2
[2024-10-22] MEDS: Ferrous Sulfate 325 MG Tablet PO (13:52)
[2024-10-22] MEDS: Acetaminophen 325 MG Tablet 650 MG PO (13:52)
[2024-10-22] MEDS: Insulin Lispro 100 UNIT/ML INSULN.PEN SC ×2 (13:53→21:58)
--- NOTE | 2024-10-22 14:22 | CASEMGMT ---
SW went to patient's room and inquired if she and her daughters talked about her discharge plan. Patient said they did not. SW asked patient if she would be agreeable to [facility] TCU. Patient said she does not know she has to talk to her daughter. TELMA came out of patient's room and called patient's daughter Leslie. It went right to voice mail. TELMA left her a message asking if they talked about a discharge plan as TCU may have a bed. TELMA then received a call from patient's daughter Leslie. Leslie asked if SW just spoke to patient. TELMA told her SW did. Leslie said it would be better if SW left patient out of the discussion as everything upsets her. Leslie said they would like patient to go to TCU if possible. TELMA let Leslie know TCU was able to take patient, however TELMA is not sure there is a bed available now. TELMA told Leslie SW will let her know as soon as TELMA finds out about bed availability. Rebecca Casanova CRACKING MACHINE OPERATOR ABRAHAM
--- NOTE | 2024-10-22 16:08 | CASEMGMT ---
TELMA called patient's daughter Leslie and let her know that SW is not going to have an answer for her regarding bed availability in TCU today. TELMA let Leslie know that SW will get back to her tomorrow. Plan: Possibly [facility] TCU pending bed availability. Rebecca ROSARIO
[2024-10-22 17:26] LABS: Bedside Glucose 89 mg/dL (74-106)
[2024-10-22] MEDS: LORazepam 1 MG Tablet PO (17:47)
[2024-10-22] MEDS: Atorvastatin Calcium 20 MG Tablet PO (21:57)
[2024-10-22 23:26] LABS: Bedside Glucose 166 mg/dL (74-106)
[2024-10-23 03:46] VITALS: BP 117/82; PULSE 73; RESP 18; TEMP 36.5; O2SAT 98
[2024-10-23] MEDS: Levothyroxine 88 MCG Tablet PO (05:04)
[2024-10-23 05:33] VITALS: BMI 33.1
[2024-10-23 05:55] LABS: Absolute Lymphocyte Count 1.39 X10^3/uL (0.83-4.51); Basophil# 0.02 X10^3/uL; Basophil% 0.5 % (0-1); Eosinophil# 0.08 X10^3/uL; Eosinophils% 2.1 % (0-5); Hematocrit 35.4 % (37-47); Hemoglobin 11.5 g/dL (12.0-15.0); Lymphocyte # 1.39 X10^3/ul (0.83-4.51); Lymphocyte % 35.7 % (19-41); Mean Corp Hgb Conc 32.5 g/dL (32-36); Mean Corpuscular Hgb 31.4 pg (27.0-32.0); Mean Corpuscular Volume 96.7 fL (81-99); Mean Platelet Vol. 10.2 fl (6.2-12.0); Monocyte# 0.39 X10^3/uL; NRBC Flagged by Analyzer 0 % (0-5); Neutrophil # 1.99 X10^3/uL (2.7-7.7); Neutrophil % 51.2 % (47-70); POSITIVE MORPHOLOGY YES; Platelet Count 186 K/mm3 (150-450); RBC Distribution Width CV 12.6 % (11.6-14.6); RBC Distribution Width SD 44.8 fl (35.1-43.9); Red Blood Count 3.66 M/mm3 (4.2-5.4); White Blood Count 3.9 K/mm3 (4.4-11.0)
[2024-10-23 06:21] LABS: Differential Indicated SCAN CRITERIA MET
[2024-10-23 06:40] LABS: Anion Gap 2 (5-15); BUN 9 mg/dL (7-18); BUN/Creat Ratio 11.1 RATIO (10-20); Calcium,Total 8.6 mg/dL (8.5-10.1); Chloride 106 mmol/L (98-107); Creatinine, Serum 0.81 mg/dL (0.55-1.02); EST Glomerular Filtration Rate 71 mL/min (>60); Est Glom Filt Rate - Afr Amer 86 mL/min (>60); Estimated Creatinine Clearance 54.32 ml/min; Glucose 164 mg/dL (74-106); Potassium 3.9 mmol/L (3.5-5.1); Sodium Level 140 mmol/L (136-145)
[2024-10-23 06:51] LABS: Differential Comment SCANNED; Platelet Estimate ADEQUATE (ADEQ); Red Cell Morphology NORM C+C NORMAL (NORM C&C)
[2024-10-23 07:04] VITALS: PULSE 79; RESP 20; O2SAT 94
[2024-10-23] MEDS: Budesonide Respules 0.5 MG/2 ML AMPUL.NEB. INHALATION (07:04)
[2024-10-23 07:14] LABS: Bedside Glucose 147 mg/dL (74-106)
[2024-10-23 09:45] VITALS: BP 134/78; PULSE 86; RESP 17; TEMP 36.8; O2SAT 96
[2024-10-23] MEDS: Ceftriaxone 2 GM in 0.9% Normal Saline (50mL MB+) 50 ML IV (10:18)
[2024-10-23] MEDS: Pantoprazole Sodium 40 MG Tablet PO (10:18)
[2024-10-23] MEDS: levETIRAcetam 500 MG Tablet PO (10:18)
[2024-10-23] MEDS: Losartan Potassium 50 MG Tablet PO (10:18)
[2024-10-23] MEDS: Sertraline 50 MG Tablet PO (10:18)
[2024-10-23] MEDS: APIXABAN 5 MG TABLET PO (10:19)
[2024-10-23] MEDS: Lactobacillis Acidophilus 1 CAP PO (10:19)
[2024-10-23] MEDS: Furosemide 40 MG Tablet PO (10:19)
[2024-10-23] MEDS: Carvedilol 25 MG Tablet PO (10:19)
[2024-10-23] MEDS: Menthol/Lanolin/Calamine/Znox 113 GM Tube 1 APPLIC TOPICAL (10:20)
--- NOTE | 2024-10-23 10:31 | CASEMGMT ---
Addendum entered by Dorota Bowden 10/23/24 11:57: Social Work Per physician, pt is ready for discharge. DC orders faxed to TCU and RN and TCU notified of dc today. Disposition: TCU, skilled level of care [facility] Original Note: Social Work SW spoke with TCU and they are able to accept pt today. Phone call to pt's dgt Leslie and notified of acceptance. Also notified that pt would get a substitute for Trulicity while in TCU and Leslie is agreeable to this. TELMA spoke with Leslie regarding pt's agreement to go to TCU and Leslie states she did notify pt of dc plan last night. With Leslie's permission, TELMA met with pt and discussed discharge plan. Pt is agreeable to discharge to TCU. Physician notified that pt can dc to TCU when medically ready. Plan: TCU, when medically ready [facility]
[2024-10-23] MEDS: Azithromycin 500 MG in Dextrose 5%-Water (250mL Bag) 250 ML 250 MG IV (10:58)
--- NOTE | 2024-10-23 11:10 | TREXTCAR_ITS ---
Diet Diet Order/Speech Therapy: 10/17/24 22:11 Diet: Cardiac: Calorie-Controlled Food consistency:: Regular Liquid Consistency:: Regular/Thin Type of Dietary Supplement:: Glucerna Shake Diet Comments: 120mL glucerna shake with meals How many daily calories?: 1800 calorie Routine Orders/Code Status Enema Type: Fleetz Enema Frequency: Daily PRN Suppository Type: Dulcolax 10mg Suppository Frequency: Daily PRN DC O2, CPAP, BIPAP needs Home O2 Discharge instructions: Yes Type of respiratory needs?: Oxygen (2) Oxygen frequency: Continuous Continuous oxygen liters per minute: 2 Therapies Weight Bearing: Weight bearing as tolerated Physical Therapy: Eval and Treat Occupational Therapy: Eval and Treat Problem/Diagnosis (1) Community acquired pneumonia: Status: Acute Code(s): J18.9 - Pneumonia, unspecified organism (2) URI (upper respiratory infection): Status: Acute Code(s): J06.9 - Acute upper respiratory infection, unspecified Plan #Hypoxia due to post influenza pneumonia * Patient tested positive for influenza. * She came in with a complaint of generalized weakness symptoms of upper respiratory tract infection. There was concern for UTI so she had been seen in the ED the day before admission but workup for UTI was negative. Still felt unwell at home with positive coughing and shortness of breath which came into the ED. * Currently on IV Rocephin and azithromycin. to complete a 5 day course, with last dose being tomorrow. * blood cultures show no growth in 48 hours. * on Tamiflu since she tested positive for influenza; to complete a 5 day course. * Breathing treatments bronchodilators. Titrate oxygen to maintain saturation above 90%. #Type 2 diabetes mellitus with neuropathy: * Oral meds on hold. Trulicity also on hold. * Insulin sliding scale. Accu-Cheks ACHS. * A1c is 8.6. #History of heart failure with reduced ejection fraction * Has known EF of 40% from previous echoes done in January 2024 which showed mild to moderate global hypokinesis of the left ventricle. On Coreg and losartan. * Also on Lasix * not in exacerbation #History of CVA with residual left-sided weakness: On Eliquis and statin #History of paroxysmal A-fib: On Eliquis and Coreg. #Anxiety depression: On sertraline #History of seizure disorder: On Keppra #Hypothyroidism: On Synthroid #Hypertension: On losartan and Coreg. IV hydralazine as needed #Hyperlipidemia: On statin #GERD: On PPI #DVT prophylaxis: Already on Eliquis Disposition: Patient wishes to go home but her daughter wants her to go to a rehab facility or SNF. Case management on board. Allergies/Procedures Done in Hospital Allergies No Known Allergies Allergy (Verified 10/17/24 18:40) Procedures: 2-D Echocardiogram Type of Care/Length of Stay Estimated LOS: Convalescent Care Less Than 30 days Type of Care Needed: Skilled Rehab Potential: Fair Prognosis: Fair Additional Orders/Day of Discharge Day of Discharge: 10/23/24 Dietary and Speech Recommendations Dietitian Recommendations/Changes: Will continue 1800 calorie/Cardiac diet. Will add 120mL Glucerna Shake 3 times per day w/ medpass. Discharge Plan Admission Admit Date/Time: 10/17/24 20:56 Primary Reason for Your Visit: influenza, pneumonia Attending Provider: Cecilia Ruiz Primary Care Provider: Becca Jacobs SECURITIES DEALER Consulting Providers: Divina Florence Instructions Patient Instructions: ED Influenza (Adult), ED Pneumonia (Adult) Discharge Orders/Prescriptions Prescriptions: Continued levetiracetam 500 mg tablet 500 mg PO BID calcium carbonate 200 mg calcium (500 mg) tablet,chewable 500 mg PO BID albuterol sulfate 1 PUFF inhaler 2 puff inhalation Q6H PRN PRN (Reason: Sob &/Or Wheezing) omeprazole 40 mg capsule,delayed release(DR/EC) 40 mg PO DAILY Patient Comments: TAKE 1 CAPSULE BY MOUTH EVERY DAY multivitamin [Daily Multi-Vitamin] Tablet 1 tab PO DAILY acetaminophen 500 mg Tablet 1,000 mg PO 1300,2100 Qty: 120 0RF levothyroxine 88 mcg Tablet 88 mcg PO 0600 Qty: 30 0RF ferrous sulfate [FeroSul] 325 mg (65 mg iron) Tablet 325 mg PO DAILY@1200 Qty: 30 0RF gabapentin 100 mg Capsule 200 mg PO 2000 Qty: 60 0RF Rx Instructions: 2 capsules at 8 PM nightly for nerve pain in the legs Olopatadine Hcl 0 ml ophthalmic (eye) BID Qty: 0 0RF sertraline 50 mg Tablet 50 mg PO DAILY Qty: 30 0RF cyanocobalamin (vitamin B-12) 3,000 mcg capsule 3,000 mcg PO DAILY Qty: 30 0RF Trulicity 0.75 mg/0.5 mL pen injector 0.75 mg subcut QWEEK Qty: 2 0RF Patient Comments: INJECT 0.75 MG SUBCUTANEOUSLY ONE TIME A WEEK. Rx Instructions: Take on Sunday systane dry eye nitrofurantoin monohyd/m-cryst 100 mg capsule 1 cap PO DAILY benzonatate 100 mg capsule 100 mg PO TID PRN PRN (Reason: cough) Eliquis 5 mg tablet 5 mg PO BID magnesium chloride [Mag 64] 64 mg Tablet,Delayed Release (Dr/Ec) 64 mg PO DAILY Rx Instructions: 2 tabs twice a day carvedilol 25 mg tablet 25 mg PO BID Qty: 60 11RF Rx Instructions: must administer with a meal/food apixaban 5 mg tablet 5 mg PO BID Qty: 60 11RF furosemide [Lasix] 40 mg tablet 40 mg PO DAILY Qty: 90 3RF losartan 50 mg tablet 50 mg PO BID Qty: 60 11RF simvastatin 40 mg tablet 40 mg PO QHS Qty: 90 3RF Discontinued amoxicillin-pot clavulanate 875-125 mg tablet 1 tab PO BID Referrals / Follow Up: Becca Jacobs NP, SECURITIES DEALER-C [Primary Care Provider] - Within 1 Week Disposition Disposition (needs filled in before D/C Order can be placed): [facility]
--- NOTE | 2024-10-23 11:11 | DS.PCM_ITS ---
Providers Date of Admission: 10/17/24 Date of Discharge: 10/23/24 Primary Care Physician: MAK Colby Reason For Visit: HYPOXIA PNA Diagnosis Discharge Diagnosis (1) Community acquired pneumonia: Status: Acute Code(s): J18.9 - Pneumonia, unspecified organism (2) URI (upper respiratory infection): Status: Acute Code(s): J06.9 - Acute upper respiratory infection, unspecified Plan #Hypoxia due to post influenza pneumonia * Patient tested positive for influenza. * She came in with a complaint of generalized weakness symptoms of upper respiratory tract infection. There was concern for UTI so she had been seen in the ED the day before admission but workup for UTI was negative. Still felt unwell at home with positive coughing and shortness of breath which came into the ED. * Currently on IV Rocephin and azithromycin. to complete a 5 day course, with last dose being tomorrow. * blood cultures show no growth in 48 hours. * on Tamiflu since she tested positive for influenza; to complete a 5 day course. * Breathing treatments bronchodilators. Titrate oxygen to maintain saturation above 90%. #Type 2 diabetes mellitus with neuropathy: * Oral meds on hold. Trulicity also on hold. * Insulin sliding scale. Accu-Cheks ACHS. * A1c is 8.6. #History of heart failure with reduced ejection fraction * Has known EF of 40% from previous echoes done in January 2024 which showed mild to moderate global hypokinesis of the left ventricle. On Coreg and losartan. * Also on Lasix * not in exacerbation #History of CVA with residual left-sided weakness: On Eliquis and statin #History of paroxysmal A-fib: On Eliquis and Coreg. #Anxiety depression: On sertraline #History of seizure disorder: On Keppra #Hypothyroidism: On Synthroid #Hypertension: On losartan and Coreg. IV hydralazine as needed #Hyperlipidemia: On statin #GERD: On PPI #DVT prophylaxis: Already on Eliquis Disposition: Patient wishes to go home but her daughter wants her to go to a rehab facility or SNF. Case management on board. Medications at Discharge Home Medications albuterol sulfate 90 mcg/actuation aerosol inhaler 2 puff inhalation Q6H PRN PRN Sob &/Or Wheezing 12/04/17 omeprazole 40 mg capsule,delayed release 40 mg PO DAILY GERD 11/06/23 multivitamin (Daily Multi-Vitamin tablet) 1 tab PO DAILY supplement 12/05/23 Olopatadine HCl 0 ml ophthalmic (eye) BID ##0 12/21/23 acetaminophen 500 mg tablet 1,000 mg (2 x 500 mg) PO 1300,2100 Pain #120 tabs 12/21/23 cyanocobalamin (vitamin B-12) 3,000 mcg capsule 3,000 mcg PO DAILY health maintenance #30 caps 12/21/23 dulaglutide 0.75 mg/0.5 mL subcutaneous pen injector (Trulicity) 0.75 mg (0.5 mL) subcut QWEEK glucose #2 mL 12/21/23 ferrous sulfate 325 mg (65 mg iron) tablet (FeroSul) 325 mg PO DAILY@1200 health maintenance #30 tabs 12/21/23 gabapentin 100 mg capsule 200 mg (2 x 100 mg) PO 2000 pain #60 caps 12/21/23 levothyroxine 88 mcg tablet 88 mcg PO 0600 Thyroid #30 tabs 12/21/23 sertraline 50 mg tablet 50 mg PO DAILY Depression #30 tabs 12/21/23 levetiracetam 500 mg tablet 500 mg PO BID seizures 12/28/23 apixaban 5 mg tablet 5 mg PO BID blood thinner #60 tabs 12/31/23 carvedilol 25 mg tablet 25 mg PO BID BP #60 tabs 12/31/23 furosemide 40 mg tablet (Lasix) 40 mg PO DAILY please adjust prepackaged meds #90 tabs 01/29/24 losartan 50 mg tablet 50 mg PO BID BP #60 tabs 02/19/24 calcium carbonate 500 mg PO BID supplement 03/21/24 simvastatin 40 mg tablet 40 mg PO QHS CHOLESTEROL #90 tabs 07/25/24 apixaban 5 mg tablet (Eliquis) 5 mg PO BID 10/16/24 benzonatate 100 mg capsule 100 mg PO TID PRN PRN cough 10/16/24 magnesium chloride 64 mg (magnesium chloride) tablet,delayed release (Mag 64) 64 mg PO DAILY supplement 10/16/24 nitrofurantoin monohydrate/macrocrystals 100 mg capsule 1 cap PO DAILY urinary uti 10/17/24 systane dry eye dry eyes 10/17/24 cholecalciferol (vitamin D3) 50 mcg (2,000 unit) capsule 50 mcg PO DAILY health 10/23/24 Hospital Course Operations None Procedures None Summary of Care Provided Minutes Spent on Discharge: 50 Hospital Course: Patient is an 89-year-old female with past medical history as outlined was admitted through the ED on 10/17/2024 with a complaint of weakness and debility. She had been seen in the ED the day before admission for weakness and was diagnosed with UTI. She was discharged home. She had also been on oral Augmentin for upper respiratory tract infection. However she came back to the ED because she was getting weaker and felt more short of breath and was also coughing. She said she had been having diarrhea since she started the Augmentin. On admission COVID test was negative and CT of the chest abdomen and pelvis showed multifocal infiltrates in both lungs consistent with pneumonia. EKG showed A-fib. She was admitted and started on IV vancomycin and Zosyn. Influenza test done was positive so she was placed on Tamiflu. Of note antibiotics were transitioned to IV ceftriaxone and azithromycin. Patient shortness of breath improved though she did remain 2 L of oxygen. She completed a 5-day course of antibiotics and also completed a 5-day course of Tamiflu. Patient had wished to go home but she was skilled as needing further therapy. She was therefore discharged to the transitional care unit on 10/23/2024. She was discharged on 2 L of oxygen. She is to follow-up with her primary care doctor within 1 to 2 weeks. Patient seen and examined prior to discharge. She was still unhappy about having to go to a facility as she preferred to go home but understood that her daughter had a lot on her plate with caring for her family. Review of systems otherwise negative. Labs and vitals reviewed. Home medication reviewed and reconciled. Physical Exam Const alert and oriented x3 General Appearance: cooperative and comfortable Orientation / Consciousness: awake Exam Limitations: no limitations HEENT normocephalic, head/scalp atraumatic, hearing grossly normal bilaterally and moist oral mucous membranes Mouth: oral and palatal mucosa normal Eyes PERRL, EOMs intact bilaterally and conjunctivae normal Neck no lymphadenopathy, supple and no JVD Lymph Lymphatic: no lymphadenopathy noted and no lymphedema noted Resp Resp Narrative: mildly diminished breath sounds bibasally, no wheezes or crackles. Still on 2L of oxygen by nasal canula. Cardio regular rate, regular rhythm, S1 normal heart sound, S2 normal heart sound and no murmurs GI normal to inspection, nondistended, normoactive bowel sounds, soft to palpation, non-tender and non-distended Extremity normal to inspection, full ROM, normal capillary refill, no clubbing, cyanosis or edema and no calf tenderness General Extremity: no tenderness to palpation of joints or extremities Skin no rashes or lesions noted General Skin Exam: no breakdown Neuro oriented x3, CN's II-XII intact bilaterally, moves all extremities, no focal motor deficits and no sensory deficits noted Sensorium / Orientation: awake and alert Motor Exam: strength 5/5 throughout Psych thought process normal and cooperative Mood & Affect: flat affect Weight / BMI Weight Weight: 199 lb 1.239 oz Body Mass Index (BMI) 33.1 ABG / Lab / Microbiology Data 10/23/24 05:42 10/23/24 05:42 Laboratory: Laboratory Results - last 24 hr 10/22/24 17:08: POC Glucose 89 10/22/24 21:53: POC Glucose 166 H 10/23/24 05:42: WBC 3.9 L, RBC 3.66 L, Hgb 11.5 L, Hct 35.4 L, MCV 96.7, MCH 31.4, MCHC 32.5, RDW Std Deviation 44.8 H, RDW Coeff of Bhupinder 12.6, Plt Count 186, MPV 10.2, Immature Gran % (Auto) 0.500, Neut % (Auto) 51.2, Lymph % (Auto) 35.7, [place] % (Auto) 10.0, Eos % (Auto) 2.1, Baso % (Auto) 0.5, Absolute Neuts (auto) 2.0, Absolute Lymphs (auto) 1.39, Nucleated RBC % 0, Differential Comment SCANNED, Platelet Estimate ADEQUATE, RBC Morphology NORM C+C, Sodium 140, Potassium 3.9, Chloride 106, Carbon Dioxide 33.0 H, Anion Gap 2 L, BUN 9, Creatinine 0.81, Estim Creat Clear Calc 54.32, Est GFR (MDRD) Af Amer 86, Est GFR (MDRD) Non-Af 71, BUN/Creatinine Ratio 11.1, Glucose 164 H, Calcium 8.6 10/23/24 06:46: POC Glucose 147 H 10/23/24 12:01: POC Glucose 255 H Microbiology: Microbiology 10/17/24 20:00 Blood Culture (Wb) #2 - Left Hand Blood Culture - Final No growth in 5 days. 10/17/24 19:46 Blood Culture (Wb) - Anticubital Left Blood Culture - Final No growth in 5 days. 10/17/24 18:58 Mucosa - Nose Respiratory Panel (PCR) - Final Influenzae A Influenza A (Subtype H1) 10/18/24 02:45 Stool Enteric Bacteriology - Final 10/18/24 02:45 Stool Clostridioides difficile (PCR) - Final 10/17/24 23:55 Nasal Secretion MRSA (PCR) - Final 10/17/24 18:58 Urine, Clean Catch Legionella Antigen - Final 10/17/24 18:58 Urine, Clean Catch Streptococcus pneumoniae Antigen (M - Final 10/17/24 18:50 Mucosa - Nose Coronavirus COVID-19 PCR - Final D/C Instructions Discharge Diet: Low fat / Low cholesterol Discharge Activity: Return to Normal Activity Weight Bearing Status: Weight bearing as tolerated Call your doctor if you observe: Fever of 101 or Higher, Shortness of breath, Dizziness, Swelling in the ankles and Chest pain DC O2, CPAP, BIPAP Needs Home O2 Discharge instructions: Yes Type of respiratory needs?: Oxygen (2) Oxygen frequency: Continuous Continuous oxygen liters per minute: 2 DC home with Oxygen: Yes Home O2 MD Review: I have reviewed the oxygen testing, and the patient qualifies for home oxygen equipment and portability. The patient is mobile in the home and the community. Meaningful Use Info Meaningful Use Meaningful Use Diagnoses (Choose all that apply): None applicable Ischemic Stroke Statin Dosing Therapy Reference: STATIN DOSE THERAPY REFERENCE: * Patients > 75 years receive moderate or high dose statin therapy. * Patients 75 years or YOUNGER should receive HIGH intensity statin dose unless contraindicated. You will be required to document reason for non-treatment if statin daily dose does not meet guidelines. HIGH DOSE STATIN THERAPY DAILY Atorvastatin > than or = to 40 mg Rosuvastatin > than or = to 20 mg Amlodipine + Atorvastatin > than or = to 2.5/40 mg Ezetimibe + Simvastatin 10/80 mg Simvastatin 80mg Discharge Plan Admission Admit Date/Time: 10/17/24 20:56 Primary Reason for Your Visit: influenza, pneumonia Attending Provider: Cecilia Ruiz Primary Care Provider: Haagen,Becca PAINT DIPPER Consulting Providers: Divina Florence Instructions Patient Instructions: ED Influenza (Adult), ED Pneumonia (Adult) Discharge Orders/Prescriptions Prescriptions: Continued levetiracetam 500 mg tablet 500 mg PO BID calcium carbonate 200 mg calcium (500 mg) tablet,chewable 500 mg PO BID albuterol sulfate 1 PUFF inhaler 2 puff inhalation Q6H PRN PRN (Reason: Sob &/Or Wheezing) omeprazole 40 mg capsule,delayed release(DR/EC) 40 mg PO DAILY Patient Comments: TAKE 1 CAPSULE BY MOUTH EVERY DAY multivitamin [Daily Multi-Vitamin] Tablet 1 tab PO DAILY acetaminophen 500 mg Tablet 1,000 mg PO 1300,2100 Qty: 120 0RF levothyroxine 88 mcg Tablet 88 mcg PO 0600 Qty: 30 0RF ferrous sulfate [FeroSul] 325 mg (65 mg iron) Tablet 325 mg PO DAILY@1200 Qty: 30 0RF gabapentin 100 mg Capsule 200 mg PO 2000 Qty: 60 0RF Rx Instructions: 2 capsules at 8 PM nightly for nerve pain in the legs Olopatadine Hcl 0 ml ophthalmic (eye) BID Qty: 0 0RF sertraline 50 mg Tablet 50 mg PO DAILY Qty: 30 0RF cyanocobalamin (vitamin B-12) 3,000 mcg capsule 3,000 mcg PO DAILY Qty: 30 0RF Trulicity 0.75 mg/0.5 mL pen injector 0.75 mg subcut QWEEK Qty: 2 0RF Patient Comments: INJECT 0.75 MG SUBCUTANEOUSLY ONE TIME A WEEK. Rx Instructions: Take on Sunday systane dry eye nitrofurantoin monohyd/m-cryst 100 mg capsule 1 cap PO DAILY benzonatate 100 mg capsule 100 mg PO TID PRN PRN (Reason: cough) Eliquis 5 mg tablet 5 mg PO BID magnesium chloride [Mag 64] 64 mg Tablet,Delayed Release (Dr/Ec) 64 mg PO DAILY Rx Instructions: 2 tabs twice a day carvedilol 25 mg tablet 25 mg PO BID Qty: 60 11RF Rx Instructions: must administer with a meal/food apixaban 5 mg tablet 5 mg PO BID Qty: 60 11RF furosemide [Lasix] 40 mg tablet 40 mg PO DAILY Qty: 90 3RF losartan 50 mg tablet 50 mg PO BID Qty: 60 11RF simvastatin 40 mg tablet 40 mg PO QHS Qty: 90 3RF Discontinued amoxicillin-pot clavulanate 875-125 mg tablet 1 tab PO BID No Action cholecalciferol (vitamin D3) 50 mcg (2,000 unit) capsule 50 mcg PO DAILY Referrals / Follow Up: Becca Jacobs PAINT DIPPER, PAINT DIPPER-C [Primary Care Provider] - Within 1 Week Disposition Disposition (needs filled in before D/C Order can be placed): Longterm Facility Charges/Coding Visit Charges Inpatient E&M: 02569 Disch Hosp >30min
[2024-10-23 12:18] LABS: Bedside Glucose 255 mg/dL (74-106)
[2024-10-23] MEDS: Nystatin Powder 15gm Bottle 1 APPLIC TOPICAL (12:19)
[2024-10-23] MEDS: Ferrous Sulfate 325 MG Tablet PO (12:20)
[2024-10-23] MEDS: Insulin Lispro 100 UNIT/ML INSULN.PEN SC (12:20)
[2024-10-23 14:00] VITALS: BP 132/78; PULSE 84; RESP 17; TEMP 36.9; O2SAT 96
--- NOTE | 2024-10-23 14:54 | NURSING ---
Report called to Char[facility] on TCU wi all quest answered. IV x's 1 left in pt arm per Charlette's request.
== END 2024-10-23 14:56 | disposition skilled nursing facility (03) | DRG 194 ==
LOC: ED 20:49 → PCU 21:17
PROVIDERS: Nurse Practitioner; Admitting Provider Family Medicine; Emergency Provider Emergency Medicine; PCP Registered Nurse; Visit Provider Student in an Organized Health Care Education/Training Program
DX: J10.01 Influenza due to other identified influenza virus with the same other identified influenza virus pneumonia (principal); I42.8 Other cardiomyopathies; E87.20 Acidosis, unspecified; I69.354 Hemiplegia and hemiparesis following cerebral infarction affecting left non-dominant side; I50.22 Chronic systolic (congestive) heart failure; I13.0 Hypertensive heart and chronic kidney disease with heart failure and stage 1 through stage 4 chronic kidney disease, or unspecified chronic kidney disease; E11.22 Type 2 diabetes mellitus with diabetic chronic kidney disease; D50.9 Iron deficiency anemia, unspecified; R62.7 Adult failure to thrive; G40.909 Epilepsy, unspecified, not intractable, without status epilepticus; I48.91 Unspecified atrial fibrillation; N18.30 Chronic kidney disease, stage 3 unspecified; E03.9 Hypothyroidism, unspecified; J45.909 Unspecified asthma, uncomplicated; E66.9 Obesity, unspecified; E11.65 Type 2 diabetes mellitus with hyperglycemia; K21.9 Gastro-esophageal reflux disease without esophagitis; I25.10 Atherosclerotic heart disease of native coronary artery without angina pectoris; J06.9 Acute upper respiratory infection, unspecified; E11.40 Type 2 diabetes mellitus with diabetic neuropathy, unspecified; E78.5 Hyperlipidemia, unspecified; Z79.890 Hormone replacement therapy; Z79.01 Long term (current) use of anticoagulants; Z79.85 Long-term (current) use of injectable non-insulin antidiabetic drugs; Z80.0 Family history of malignant neoplasm of digestive organs; Z68.33 Body mass index [BMI] 33.0-33.9, adult; Z87.440 Personal history of urinary (tract) infections
CPT/HCPCS: 36415; 71045; 71260; 74177; 80048; 80053; 80076; 81001; 82962; 83036; 83605; 83690; 83735; 84100; 84145; 85025; 86738; 87040; 87086; 87449; 87493; 87506; 87633; 87635; 87641; 93005; 94640; 94668; 97110; 97116; 97162; 97166; 97530; 97535; 99283; 99285; Q9967; A4216; J0696; J2405

== ENCOUNTER 2024-10-23 15:09 | Inpatient (IN) | payer MEDICARE, OTHER, SELFPAY ==
[2024-10-23 15:51] VITALS: BP 123/75; PULSE 79; RESP 26; TEMP 36.7; O2SAT 99
[2024-10-23 15:53] VITALS: BMI 32.5
[2024-10-23 16:56] LABS: Bedside Glucose 177 mg/dL (74-106)
--- NOTE | 2024-10-23 19:43 | HP.PCM_ITS ---
HPI - General General Date of Admission: 10/23/24 Date of Service: 10/23/24 Chief Complaint: Here for rehabilitation. HPI Narrative DILIA MCKEON, is a 89 Female who presents with followin10/17/2024 [facility] ED weakness. Ongoing weakness, on Augmentin for upper respiratory infection. Ill appearing, more weak, cannot get around. Abdominal pain, shortness of breath, IV fluids given. WBC 18.8, Glucose 259, Lactic acid 3.2. CT A/P shows bilateral multifocal infiltrates consistent with pneumonia. Zosyn, Vancomycin given, oxygen applied. 10/17/2024 Admit [facility]. Rocephin, Azithromycin for pneumonia. Check C. Diff for diarrhea. PT/OT for debility. 10/18/2024 Weak, tired, wheezing, dry cough. Tamiflu for influenza. Rocephin, Azithromycin for pneumonia. 10/19/2024 Feeling better. Tamiflu x 5 days for influenza. Wean oxygen as tolerated. 10/20/2024 Weak, but better. Rocephin, Azithromycin for pneumonia. A1c 8.6. 10/21/2024 Feels weak, oxygen 2 liters per nasal cannula. Plan unchanged, blood cultures negative. 10/22/2024 Oxygen 2 liters per nasal cannula. Rocephin, Azithromycin x 5 edays, last dose tomorrow. PT/OT SNF. 10/23/2024 Admit to TCU with debility, here for rehabilitation, strengthening, prior to discharge home with daughter. [facility] Medical History (Updated 10/23/24 @ 19:[address] John Paul Bolton MD) Depression Hypothyroidism Hyperlipidemia Diabetes Osteoporosis Congestive heart failure (CHF) Hypertension Dementia Cardiomyopathy CVA (cerebral vascular accident) Atrial fibrillation Obesity (BMI 30.0-34.9) Restless leg syndrome Hiatal hernia Chronic congestive heart failure Secondary pulmonary arterial hypertension Non-rheumatic tricuspid valve insufficiency Nonischemic cardiomyopathy GERD (gastroesophageal reflux disease) Iron deficiency anemia Neuropathic pain Hip fracture Type 2 diabetes mellitus Osteoarthritis Asthma Essential (primary) hypertension Atherosclerosis of coronary artery of nikolai heart without angina pectoris PVC's (premature ventricular contractions) Non-ST elevation (NSTEMI) myocardial infarction Acute respiratory failure Nonrheumatic mitral (valve) insufficiency PVT (paroxysmal ventricular tachycardia) Home Medications ?Medication ?Instructions ?Recorded ?Last Taken ?Type albuterol sulfate 90 mcg/actuation 2 puff inhalation Q6H PRN PRN Sob 12/04/17 Unknown History aerosol inhaler &/Or Wheezing omeprazole 40 mg capsule,delayed 40 mg PO DAILY GERD 11/06/23 Unknown History release multivitamin (Daily Multi-Vitamin 1 tab PO DAILY supplement 12/05/23 Unknown History tablet) Olopatadine HCl 0 ml ophthalmic (eye) BID ##0 12/21/23 Unknown Rx acetaminophen 500 mg tablet 1,000 mg (2 x 500 mg) PO 1300,2100 12/21/23 10/16/24 Rx Pain #120 tabs cyanocobalamin (vitamin B-12) 3,000 mcg PO DAILY health 12/21/23 Unknown Rx 3,000 mcg capsule maintenance #30 caps dulaglutide 0.75 mg/0.5 mL 0.75 mg (0.5 mL) subcut QWEEK 12/21/23 10/06/24 Rx subcutaneous pen injector glucose #2 mL (Trulicity) ferrous sulfate 325 mg (65 mg 325 mg PO DAILY@1200 health 12/21/23 10/22/24 13:30 Rx iron) tablet (FeroSul) maintenance #30 tabs gabapentin 100 mg capsule 200 mg (2 x 100 mg) PO 2000 pain 12/21/23 Unknown Rx #60 caps levothyroxine 88 mcg tablet 88 mcg PO 0600 Thyroid #30 tabs 12/21/23 10/23/24 05:05 Rx sertraline 50 mg tablet 50 mg PO DAILY Depression #30 tabs 12/21/23 10/23/24 10:15 Rx levetiracetam 500 mg tablet 500 mg PO BID seizures 12/28/23 10/23/24 10:15 History apixaban 5 mg tablet 5 mg PO BID blood thinner #60 tabs 12/31/23 Unknown Rx carvedilol 25 mg tablet 25 mg PO BID BP #60 tabs 12/31/23 10/23/24 10:20 Rx furosemide 40 mg tablet (Lasix) 40 mg PO DAILY please adjust 01/29/24 10/23/24 10:20 Rx prepackaged meds #90 tabs losartan 50 mg tablet 50 mg PO BID BP #60 tabs 02/19/24 10/23/24 10:15 Rx calcium carbonate 500 mg PO BID supplement 03/21/24 Unknown History simvastatin 40 mg tablet 40 mg PO QHS CHOLESTEROL #90 tabs 07/25/24 10/22/24 21:53 Rx apixaban 5 mg tablet (Eliquis) 5 mg PO BID 10/16/24 10/17/24 History benzonatate 100 mg capsule 100 mg PO TID PRN PRN cough 10/16/24 Unknown History magnesium chloride 64 mg 64 mg PO DAILY supplement 10/16/24 Unknown History (magnesium chloride) tablet,delayed release (Mag 64) nitrofurantoin 1 cap PO DAILY urinary uti 10/17/24 Unknown History monohydrate/macrocrystals 100 mg capsule systane dry eye dry eyes 10/17/24 Unknown History cholecalciferol (vitamin D3) 50 50 mcg PO DAILY health 10/23/24 Unknown History mcg (2,000 unit) capsule Allergy/AdvReac Type Severity Reaction Status Date / Time No Known Allergies Allergy Verified 10/17/24 18:40 Family History Sister Asthma Colon cancer Diabetes Brother Cancer Throat cancer Father Prostate cancer Daughter Myocardial infarction Surgical History History of cataract extraction with lens replacement History of right hip replacement 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) History of left heart catheterization (LHC) (02/14/17) Social History household members: none housing: other details: [facility] number of children: 2 current occupational status: retired pets and animals: Yes (She has a black poodle named Mary Jane) pets and animals: dog(s) leisure activities: other history of recent travel: No Smoking Status: Never smoker alcohol intake: never diet: diabetic what type of physical activity do you participate in: none seatbelt use: always ROS Constitutional Constitutional: Reports weakness; Denies chills, fever(s) or weight gain ENT HEENT: Denies headache(s), nasal congestion or nasal discharge Cardiovascular Cardiovascular: Denies chest pain or palpitations Respiratory/Chest Respiratory/Chest: Denies cough, excessive phlegm production or shortness of breath with exertion Gastrointestinal Gastrointestinal: Denies abdominal pain, nausea or vomiting Genitourinary Genitourinary: Denies dysuria Musculoskeletal Musculoskeletal: Denies joint pain or joint swelling Integumentary Integumentary: Denies rash or wounds Neurologic Neurologic: Denies focal weakness, numbness or tingling Psychiatric Psychiatric: Denies anxiety, auditory hallucinations, depression, homicidal ideation or suicidal ideation Vital Signs Vital Signs Vital Signs: 10/23/24 15:38 10/23/24 15:51 Temperature 98.1 F Temperature Source Temporal Pulse Rate 79 Pulse Rhythm Regular Respiratory Rate 26 H Respiratory Effort Normal Non-Labored Respiratory Depth Normal Respiratory Pattern Normal Blood Pressure 123/75 H Blood Pressure Mean 91 Blood Pressure Source Monitor Blood Pressure Position Sitting Pulse Ox 99 Oxygen Delivery Method Room Air Nasal Cannula Oxygen Flow Rate (L/min) 99 2 Weight Weight: 88.859 kg Body Mass Index (BMI) 32.5 Physical Exam Const alert General Appearance: cooperative HEENT normocephalic Eyes PERRL and EOMs intact bilaterally Neck supple, no JVD and no carotid bruits Resp normal respiratory effort, normal air movement and clear to auscultation bilaterally Auscultation: rhonchi and wheezes Cardio regular rate and regular rhythm GI normal to inspection, nondistended, normoactive bowel sounds, non-tender and non-distended Extremity normal capillary refill General Extremity: Negative for edema Skin no rashes or lesions noted General Skin Exam: no breakdown Psych affect normal Appearance: appropriate Results Lab / Micro Data Labs: Laboratory Results - last 24 hr 10/23/24 16:37: POC Glucose 177 H Assessment & Plan Assessment/Plan (1) Debility: (2) Weakness: (3) Hypoxia: (4) Pneumonia: (5) Influenza A: (6) CVA (cerebral vascular accident): (7) Atrial fibrillation: (8) HFrEF (heart failure with reduced ejection fraction): (9) GERD (gastroesophageal reflux disease): (10) Allergic conjunctivitis: (11) B12 deficiency: (12) Diabetes: (13) Iron deficiency anemia: (14) Neuropathic pain: (15) Hypothyroidism: QUALIFIERS: Hypothyroidism type: acquired Qualified Code(s): E03.9 - Hypothyroidism, unspecified (16) Depression: QUALIFIERS: Depression Type: unspecified Qualified Code(s): F32.A - Depression, unspecified (17) Seizure disorder: (18) Hyperlipidemia: QUALIFIERS: Hyperlipidemia type: pure hypercholesterolemia Qualified Code(s): E78.00 - Pure hypercholesterolemia, unspecified; E78.0 - Pure hypercholesterolemia (19) Hypomagnesemia: PLAN: Plan 89 year old female with below past medical history hospitalized for weakness, acute respiratory failure with hypoxia 2/2 pneumonia, influenza A, admitted to TCU with debility, here for rehabilitation, strengthening, prior to discharge home with daughter. * Debility - PT/OT. * Cognition - ST. * Pain - Tylenol 1000mg q8. * Bowel - senna/colace 1 tablet bid, Magnesium citrate 300mL daily prn. * Adult immunization - Administer pneumonia vaccine, covid vaccine, flu vaccine as appropriate. * DVT prophylaxis - on Eliquis. * Asthma - [id number] 2 puffs q6 prn. * Atrial fibrillation - Coreg 25mg bid, Eliquis 5mg bid. * Hyperlipidemia - Atorvastatin 20mg qhs. * Cough - Tessalon perles 100mg tid prn. * Calcium deficiency - TUMS 500mg bid. * Vitamin B12 deficiency - B12 3000mcg daily. * Iron deficiency anemia - Ferrous sulfate 325mg daily. * HFrEF - Coreg 25mg bid, Losartan 50mg bid, Furosemide 40mg daily. * Neuropathic pain - Gabapentin 200mg daily. * Seizure disorder - Keppra 500mg bid. * Hypothyroidism - Levothyroxine 88mcg daily. * Hypomagnesemia - Magnesium chloride 128mg daily. * Skin irritation - Calmoseptine topical bid. * Nutrition - MVI 1 tablet daily * Recurrent UTI - Nitrofurantoin 100mg daily. * GERD - Pantoprazole 40mg daily. * Depression - Sertraline 50mg daily, stable chronic nursing home use, GDR not recommended.
[2024-10-23 21:46] VITALS: BP 144/81; PULSE 84; O2SAT 96
[2024-10-23] MEDS: Menthol/Lanolin/Calamine/Znox 113 GM Tube 1 APPLIC TOPICAL (21:50)
[2024-10-23] MEDS: 0.9% Saline Lock 10 ML Syringe IV (21:51)
[2024-10-23] MEDS: Gabapentin 100 MG Capsule 200 MG PO (21:51)
[2024-10-23] MEDS: Carvedilol 25 MG Tablet PO (21:52)
[2024-10-23] MEDS: Losartan Potassium 50 MG Tablet PO (21:53)
[2024-10-23] MEDS: APIXABAN 5 MG TABLET PO (21:53)
[2024-10-23] MEDS: levETIRAcetam 500 MG Tablet PO (21:53)
[2024-10-23] MEDS: Atorvastatin Calcium 20 MG Tablet PO (21:54)
[2024-10-23] MEDS: Calcium Carbonate 500 MG Tablet PO (21:55)
[2024-10-23] MEDS: Benzonatate 100 MG Capsule PO (21:57)
[2024-10-23] MEDS: Senna/Docusate Sodium 1 Tablet PO (23:31)
[2024-10-23] MEDS: Acetaminophen 500 MG Tablet 1000 MG PO (23:31)
[2024-10-24] MEDS: Levothyroxine 88 MCG Tablet PO (05:21)
[2024-10-24] MEDS: Acetaminophen 500 MG Tablet 1000 MG PO ×3 (05:21→21:39)
[2024-10-24 06:31] VITALS: O2SAT 96
--- NOTE | 2024-10-24 06:43 | NURSING ---
All patient care provided in room due to contact isolation precautions.
[2024-10-24 06:49] LABS: Bedside Glucose 179 mg/dL (74-106)
[2024-10-24 08:05] LABS: Absolute Lymphocyte Count 1.59 X10^3/uL (0.83-4.51); Absolute Neutrophil Count 2.7 X10^3/uL (2.0-7.7); Basophil# 0.03 X10^3/uL; Basophil% 0.6 % (0-1); Eosinophil# 0.06 X10^3/uL; Eosinophils% 1.2 % (0-5); Hemoglobin 11.7 g/dL (12.0-15.0); Lymphocyte # 1.59 X10^3/ul (0.83-4.51); Lymphocyte % 32.9 % (19-41); Mean Corp Hgb Conc 31.6 g/dL (32-36); Mean Corpuscular Hgb 30.5 pg (27.0-32.0); Mean Corpuscular Volume 96.4 fL (81-99); Mean Platelet Vol. 10.9 fl (6.2-12.0); Monocyte# 0.43 X10^3/uL; Monocyte% 8.9 % (0-10); NRBC Flagged by Analyzer 0 % (0-5); Platelet Count 218 K/mm3 (150-450); RBC Distribution Width CV 12.7 % (11.6-14.6); RBC Distribution Width SD 44.1 fl (35.1-43.9); Red Blood Count 3.84 M/mm3 (4.2-5.4); White Blood Count 4.8 K/mm3 (4.4-11.0)
[2024-10-24] MEDS: Furosemide 40 MG Tablet PO (08:11)
[2024-10-24] MEDS: APIXABAN 5 MG TABLET PO ×2 (08:11→21:37)
[2024-10-24] MEDS: levETIRAcetam 500 MG Tablet PO ×2 (08:11→21:37)
[2024-10-24] MEDS: Losartan Potassium 50 MG Tablet PO ×2 (08:11→21:36)
[2024-10-24] MEDS: Carvedilol 25 MG Tablet PO ×2 (08:11→21:36)
[2024-10-24] MEDS: Magnesium Chloride 64 MG Delay Rel.Tablet 128 MG PO (08:11)
[2024-10-24] MEDS: Nitrofurantoin Macrocrystals 100 MG Capsule PO (08:11)
[2024-10-24] MEDS: Multivitamins,Therapeutic Tablet 1 TABLET PO (08:11)
[2024-10-24] MEDS: Cyanocobalamin 500 MCG Tablet 3000 MCG PO (08:12)
[2024-10-24] MEDS: Pantoprazole Sodium 40 MG Tablet PO (08:12)
[2024-10-24] MEDS: Calcium Carbonate 500 MG Tablet PO ×2 (08:12→21:38)
[2024-10-24] MEDS: Menthol/Lanolin/Calamine/Znox 113 GM Tube 1 APPLIC TOPICAL ×2 (08:12→21:34)
[2024-10-24] MEDS: Senna/Docusate Sodium 1 Tablet PO ×2 (08:12→21:38)
[2024-10-24] MEDS: Sertraline 50 MG Tablet PO (08:12)
[2024-10-24 08:32] LABS: Anion Gap 6 (5-15); BUN 10 mg/dL (7-18); BUN/Creat Ratio 10.7 RATIO (10-20); Calcium,Total 8.8 mg/dL (8.5-10.1); Chloride 102 mmol/L (98-107); Creatinine, Serum 0.93 mg/dL (0.55-1.02); EST Glomerular Filtration Rate 60 mL/min (>60); Est Glom Filt Rate - Afr Amer 73 mL/min (>60); Estimated Creatinine Clearance 46.92 ml/min; Glucose 170 mg/dL (74-106); Potassium 3.6 mmol/L (3.5-5.1); Sodium Level 141 mmol/L (136-145)
[2024-10-24 08:35] VITALS: O2SAT 98
[2024-10-24] MEDS: Tuberculin,Purif.prot.deriv. 50 TU/ML Vial 0.1 ML ID (09:26)
[2024-10-24 11:33] VITALS: BP 115/76; PULSE 70; RESP 18; TEMP 36.7; O2SAT 99
[2024-10-24 11:40] LABS: Bedside Glucose 211 mg/dL (74-106)
[2024-10-24] MEDS: Ferrous Sulfate 325 MG Tablet PO (12:14)
--- NOTE | 2024-10-24 12:18 | NURSING ---
Gauge Maker Apprentice Note; Activity Asset: Petty Anthony is independent in her choice of daily activities. She was admitted on droplet ISO and will have in room activities at this time. She reads, watches tv enjoys word puzzles and having family around. Staff will continue in room activities till ISO is over then remind her of social activities and respect her right to say no.
--- NOTE | 2024-10-24 16:53 | CASEMGMT ---
Social work SW met with patient to complete initial assessment. Introduced self and role at [facility]. Verified/updated contacts. Patient confirmed code status. Patient wishes to be DNR-CCA, no intubation. Verified advance directives were on file. Patient's goal is to return home with her daughter, eLslie. SW will continue to follow for DC planning. Snow Horne, LEAD BI DEVELOPER, LUBE ATTENDANT
[2024-10-24 17:22] LABS: Bedside Glucose 143 mg/dL (74-106)
[2024-10-24 20:00] VITALS: PULSE 84; O2SAT 98
[2024-10-24] MEDS: 0.9% Saline Lock 10 ML Syringe IV (21:34)
[2024-10-24] MEDS: Gabapentin 100 MG Capsule 200 MG PO (21:34)
[2024-10-24 21:35] VITALS: BP 121/78; PULSE 85; O2SAT 98
[2024-10-24] MEDS: Atorvastatin Calcium 20 MG Tablet PO (21:38)
[2024-10-24 21:43] LABS: Bedside Glucose 159 mg/dL (74-106)
[2024-10-25] MEDS: Acetaminophen 500 MG Tablet 1000 MG PO ×3 (05:29→19:51)
[2024-10-25] MEDS: Levothyroxine 88 MCG Tablet PO (05:29)
[2024-10-25 06:17] VITALS: PULSE 88; O2SAT 98
[2024-10-25 06:18] LABS: Bedside Glucose 153 mg/dL (74-106)
[2024-10-25] MEDS: Menthol/Lanolin/Calamine/Znox 113 GM Tube 1 APPLIC TOPICAL ×2 (07:37→21:17)
[2024-10-25] MEDS: Multivitamins,Therapeutic Tablet 1 TABLET PO (07:37)
[2024-10-25] MEDS: Carvedilol 25 MG Tablet PO ×2 (07:38→21:12)
[2024-10-25] MEDS: Senna/Docusate Sodium 1 Tablet PO ×2 (07:38→21:13)
[2024-10-25] MEDS: APIXABAN 5 MG TABLET PO ×2 (07:38→21:12)
[2024-10-25] MEDS: Losartan Potassium 50 MG Tablet PO ×2 (07:38→21:11)
[2024-10-25] MEDS: Pantoprazole Sodium 40 MG Tablet PO (07:38)
[2024-10-25] MEDS: Sertraline 50 MG Tablet PO (07:38)
[2024-10-25] MEDS: levETIRAcetam 500 MG Tablet PO ×2 (07:38→21:11)
[2024-10-25] MEDS: Cyanocobalamin 500 MCG Tablet 3000 MCG PO (07:38)
[2024-10-25] MEDS: Nitrofurantoin Macrocrystals 100 MG Capsule PO (07:38)
[2024-10-25] MEDS: Magnesium Chloride 64 MG Delay Rel.Tablet 128 MG PO (07:38)
[2024-10-25] MEDS: Calcium Carbonate 500 MG Tablet PO ×2 (07:38→21:13)
[2024-10-25] MEDS: Furosemide 40 MG Tablet PO (07:38)
--- NOTE | 2024-10-25 09:02 | PHA.CONS_ITS ---
Documented by User: Washington Baird 10/25/24 10:07 TCU RX Drug Regimen Review Subjective/Objective Subjective/Objective Subjective: TCU admission note. 89 year old female with below past medical history hospitalized for weakness, acute respiratory failure with hypoxia 2/2 pneumonia, influenza A, admitted to TCU with debility, here for rehabilitation, strengthening, prior to discharge home with daughter. Objective: Allergies No Known Allergies Allergy (Verified 10/17/24 18:40) Current Medications Generic Name Dose Route Start Last Admin Trade Name Freq PRN Reason Stop Dose Admin Acetaminophen 1,000 mg 10/23/24 22:00 10/25/24 05:29 Acetaminophen 500 Mg Tablet PO 1,000 mg Q8 MICHELA Administration Albuterol Sulfate 2 puff 10/23/24 16:33 Albuterol Ih (6.7 Gm) 1 Puff Inhaler INHALATION Q6H PRN PRN Sob &/Or Wheezing Apixaban 5 mg 10/23/24 22:00 10/25/24 07:38 Apixaban 5 Mg Tablet PO 5 mg BID MICHELA Administration Atorvastatin Calcium 20 mg 10/23/24 22:00 10/24/24 21:38 Atorvastatin Calcium 20 Mg Tablet PO 20 mg QHS MICHELA Administration Benzonatate 100 mg 10/23/24 16:14 10/23/24 21:57 Benzonatate 100 Mg Capsule PO 100 mg TID PRN PRN Administration cough Calamine/Phenol 1 applic 10/23/24 22:00 10/25/24 07:37 Menthol/Lanolin/Calamine/Znox 113 Gm Tube TOPICAL 1 applic BID MICHELA Administration Protocol Calcium Carbonate 500 mg 10/23/24 22:00 10/25/24 07:38 Calcium Carbonate 500 Mg Tablet PO 500 mg BID MICHELA Administration Carvedilol 25 mg 10/23/24 22:00 10/25/24 07:38 Carvedilol 25 Mg Tablet PO 25 mg BID MICHELA Administration Protocol Cyanocobalamin 3,000 mcg 10/24/24 10:00 10/25/24 07:38 Cyanocobalamin 500 Mcg Tablet PO 3,000 mcg DAILY MICHELA Administration Ferrous Sulfate 325 mg 10/24/24 12:00 10/24/24 12:14 Ferrous Sulfate 325 Mg Tablet PO 325 mg DAILY@1200 MICHELA Administration Furosemide 40 mg 10/24/24 10:00 10/25/24 07:38 Furosemide 40 Mg Tablet PO 40 mg DAILY MICHELA Administration Protocol Gabapentin 200 mg 10/23/24 20:00 10/24/24 21:34 Gabapentin 100 Mg Capsule PO 200 mg 2000 MICHELA Administration Levetiracetam 500 mg 10/23/24 22:00 10/25/24 07:38 Levetiracetam 500 Mg Tablet PO 500 mg BID MICHELA Administration Levothyroxine Sodium 88 mcg 10/24/24 06:00 10/25/24 05:29 Levothyroxine 88 Mcg Tablet PO 88 mcg 0600 MICHELA Administration Losartan Potassium 50 mg 10/23/24 22:00 10/25/24 07:38 Losartan Potassium 50 Mg Tablet PO 50 mg BID MICHELA Administration Protocol Magnesium Chloride 128 mg 10/24/24 10:00 10/25/24 07:38 Magnesium Chloride 64 Mg Delay Rel.Tablet PO 128 mg DAILY MICHELA Administration Magnesium Citrate 300 ml 10/23/24 20:03 Magnesium Citrate 300 Ml PO DAILY PRN CONSTIPATION Multivitamins 1 tablet 10/24/24 08:00 10/25/24 07:37 Multivitamins,Therapeutic Tablet PO 1 tablet DAILYCM MICHELA Administration Nitrofurantoin Macrocrystals 100 mg 10/24/24 10:00 10/25/24 07:38 Nitrofurantoin Macrocrystals 100 Mg Capsule PO 100 mg DAILY MICHELA Administration Pantoprazole Sodium 40 mg 10/24/24 10:00 10/25/24 07:38 Pantoprazole Sodium 40 Mg Tablet PO 40 mg DAILY MICHELA Administration Senna/Docusate Sodium 1 tablet 10/23/24 22:00 10/25/24 07:38 Senna/Docusate Sodium 1 Tablet PO 1 tablet BID MICHELA Administration Sertraline HCl 50 mg 10/24/24 10:00 10/25/24 07:38 Sertraline 50 Mg Tablet PO 50 mg DAILY MICHELA Administration Sodium Chloride 10 - 40 ml 10/23/24 16:12 10/24/24 21:34 0.9% Saline Lock 10 Ml Syringe IV 20 ml UD PRN Administration SALINE FLUSH Tuberculin PPD 0.1 ml 10/31/24 10:00 Tuberculin,Purif.Prot.Deriv. 50 Tu/Ml Vial ID 10/31/24 10:01 X1 ONE Problem List Hyperlipidemia (Acute) Seizure disorder (Acute) Depression (Acute) Hypothyroidism (Acute) Neuropathic pain (Acute) Iron deficiency anemia (Acute) Diabetes (Acute) Allergic conjunctivitis (Acute) GERD (gastroesophageal reflux disease) (Acute) HFrEF (heart failure with reduced ejection fraction) (Acute) Influenza A (Acute) Pneumonia (Acute) Hypomagnesemia (Acute) B12 deficiency (Acute) Debility (Acute) CVA (cerebral vascular accident) (Acute) Vital Signs Temp Pulse Resp BP Pulse Ox O2 Del Method O2 Flow Rate 98.1 F 88 18 121/78 H 98 Nasal Cannula 2 10/24/24 11:33 10/25/24 06:17 10/24/24 11:33 10/24/24 21:35 10/25/24 06:17 10/25/24 08:24 10/25/24 08:24 Oxygen Flow Rate (L/min) 2 Oxygen Delivery Method Nasal Cannula Weight: 88.859 kg Body Mass Index (BMI) 32.5 Sodium 141 mmol/L (136-145) 10/24/24 06:26 Potassium 3.6 mmol/L (3.5-5.1) 10/24/24 06:26 Chloride 102 mmol/L (98-107) 10/24/24 06:26 Carbon Dioxide 33.0 mmol/L (21.0-32.0) H 10/24/24 06:26 Anion Gap 6 (5-15) 10/24/24 06:26 BUN 10 mg/dL (7-18) 10/24/24 06:26 Creatinine 0.93 mg/dL (0.55-1.02) 10/24/24 06:26 Est GFR (MDRD) Af Amer 73 mL/min (>60) 10/24/24 06:26 Est GFR (MDRD) Non-Af 60 mL/min (>60) 10/24/24 06:26 BUN/Creatinine Ratio 10.7 RATIO (10-20) 10/24/24 06:26 Glucose 170 mg/dL (74-106) H 10/24/24 06:26 Assessment/Plan: 1. Pain: acetaminophen 1000 mg PO Q8H. Please continue to monitor pain levels, and LFTs (AST/ALT = 22/13 U/L on 10/18/24). 2. Bowel: senna/docusate 1 tablet PO BID, magnesium citrate 300 mL PO daily PRN constipation. The patient has not required any PRN doses of magnesium citrate so far this admission and the patient's last bowel movement is documented on 10/24/24. Please continue to monitor for bowel movements, for constipation, diarrhea and for PRN medication usage. 3. Atrial fibrillation/HFrEF: apixaban 5 mg Po BID, carvedilol 25 mg PO BID, losartan 50 mg PO BID, furosemide 40 mg PO daily. Please continue to monitor for s/s of stroke, for bleeding/excessive bruising, for s/s of a heart failure exacerbation such as shortness of breath, and edema, hemoglobin levels (Hgb = 11.7 g/dL on 10/24/24), platelet counts (Plt = 218 K/mm3 on 10/24/24), renal function (serum creatinine = 0.93 mg/dL with creatinine clearance ~ 47 mL/min on 10/24/24), blood pressures (recent range = 106-152/61-95 mmHg), heart rates (recent range = 61-88 beats/min), for fatigue, potassium levels (K = 3.6 mmol/L on 10/24/24), calcium levels (Ca = 8.8 mg/dL on 10/24/24), and for s/s of dehydration. 4. Seizure disorder: levetiracetam 500 mg Po BID. Please continue to monitor for s/s of seizures, renal function (serum creatinine = 0.93 mg/dL with creatinine clearance ~ 47 mL/min on 10/24/24), and for agitation. 5. Hyperlipidemia: atorvastatin 20 mg PO QHS. Please continue to monitor lipid levels (no recent lipid levels documented), LFTs (AST/ALT = 22/13 U/L on 10/18/24), and for myalgias. Please consider ordering an annual lipid panel if clinically indicated. 6. Hypothyroidism: levothyroxine 88 mcg PO daily. Please continue to monitor thyroid hormone levels (TSH = 0.93 uIU/mL on 01/29/24 and free T4 = 1.28 ng/dL on 12/09/23), and for s/s of hypo/hyperthyroidism. 7. Recurrent UTI: nitrofurantoin 100 mg PO daily. Please continue to monitor for s/s of a UTI such as dysuria, urgency, frequency as well as renal function (serum creatinine = 0.93 mg/dL with creatinine clearance ~ 47 mL/min on 10/24/24). 8. GERD: pantoprazole 40 mg PO daily. Please continue to monitor for s/s of GERD, for diarrhea that could indicate a clostridium difficile infection and for s/s of bone resorption such as fractures. 9. Neuropathic pain: gabapentin 200 mg PO daily. Please continue to monitor for neuropathic pain, renal function (serum creatinine = 0.93 mg/dL with creatinine clearance ~ 47 mL/min on 10/24/24), and for dizziness/drowsiness and lower extremity edema. 10. Asthma: albuterol inhaler 2 puffs Q6H PRN shortness of breath/wheezing. The patient has not required any PRN doses of albuterol so far this admission. Please continue to monitor for shortness of breath, wheezing, cough and for PRN medication usage. 11. Cough: benzonatate 100 mg PO TID PRN cough. The patient has used 1 dose of benzonatate so far this admission. Please continue to monitor for cough, throat/mouth numbness and for PRN medication usage. 12. Calcium/vitamin B12/iron/magnesium deficiencies: calcium carbonate 500 mg PO BID, cyanocobalamin 3000 mcg PO daily, ferrous sulfate 325 mg PO daily, magnesium chloride 128 mg PO daily. Please continue to monitor calcium levels (Ca = 8.8 mg/dL on 10/24/24), vitamin B12 levels (B12 = 1649 pg/mL on 01/07/24), iron levels (no recent iron levels documented), hemoglobin levels (Hgb = 11.7 g/dL on 10/24/24), and magnesium levels (Mg = 1.6 mg/dL on 10/17/24). The patient's last vitamin B12 level was high, and the patient continues to be on a high dose of vitamin B12. Please consider obtaining another vitamin B12 level to assess lowering the patient's vitmain B12 level if clinically indicated. 13. Nutrition: multivitamin 1 tablet PO daily. Please continue to monitor nutritional status. 14. Skin irritation: calmoseptine 1 application topically BID. Please continue to monitor for skin irritation. Assessment/Plan for indications treated with psychotropic medications: 1. Depression: sertraline 50 mg PO daily. Please see provider note regarding stable chronic long-term use GDR not recommended. Please continue to monitor for s/s of depression, for SI, for s/s of serotonin syndrome, for abdominal pain, nausea/vomiting and sodium levels (Na = 141 mmol/L on 10/24/24). Medical chart and medication regimen reviewed. The following medication irregula rities or issues were identified: 1. Hyperlipidemia: atorvastatin 20 mg PO QHS. Please consider ordering an annual lipid panel if clinically indicated. 2. Calcium/vitamin B12/iron/magnesium deficiencies: calcium carbonate 500 mg PO BID, cyanocobalamin 3000 mcg PO daily, ferrous sulfate 325 mg PO daily, magnesium chloride 128 mg PO daily. The patient's last vitamin B12 level was high, and the patient continues to be on a high dose of vitamin B12. Please consider obtaining another vitamin B12 level to assess lowering the patient's vitmain B12 level if clinically indicated. Date Date of Note: 10/25/24 Documented by User: Dr. John Paul Bolton MD 10/26/24 13:11 TCU RX Drug Regimen Review Provider Comments Provider responsibility Provider Comments to Recommendations by Pharmacy Agree
[2024-10-25 09:22] VITALS: BP 124/77; PULSE 62; RESP 18; TEMP 36.5; O2SAT 96
[2024-10-25] MEDS: Ferrous Sulfate 325 MG Tablet PO (11:12)
[2024-10-25 12:00] LABS: Bedside Glucose 207 mg/dL (74-106)
[2024-10-25] MEDS: Nystatin Powder 15gm Bottle 1 APPLIC TOPICAL ×2 (15:15→21:16)
[2024-10-25 16:44] LABS: Bedside Glucose 157 mg/dL (74-106)
[2024-10-25] MEDS: Benzonatate 100 MG Capsule PO (19:54)
[2024-10-25] MEDS: Gabapentin 100 MG Capsule 200 MG PO (21:11)
[2024-10-25] MEDS: Atorvastatin Calcium 20 MG Tablet PO (21:13)
[2024-10-25] MEDS: 0.9% Saline Lock 10 ML Syringe IV (21:28)
[2024-10-25 21:29] VITALS: BP 124/73; PULSE 73
[2024-10-25 21:29] LABS: Bedside Glucose 187 mg/dL (74-106)
[2024-10-26] MEDS: Acetaminophen 500 MG Tablet 1000 MG PO ×3 (05:54→20:31)
[2024-10-26] MEDS: Levothyroxine 88 MCG Tablet PO (05:54)
[2024-10-26 06:39] LABS: Bedside Glucose 146 mg/dL (74-106)
[2024-10-26 08:00] VITALS: BP 112/67; PULSE 72; RESP 18; TEMP 36.3; O2SAT 98
[2024-10-26] MEDS: levETIRAcetam 500 MG Tablet PO ×2 (08:53→20:31)
[2024-10-26] MEDS: Senna/Docusate Sodium 1 Tablet PO ×2 (08:53→20:31)
[2024-10-26] MEDS: Losartan Potassium 50 MG Tablet PO ×2 (08:53→20:31)
[2024-10-26] MEDS: Multivitamins,Therapeutic Tablet 1 TABLET PO (08:53)
[2024-10-26] MEDS: Nitrofurantoin Macrocrystals 100 MG Capsule PO (08:54)
[2024-10-26] MEDS: APIXABAN 5 MG TABLET PO ×2 (08:54→20:30)
[2024-10-26] MEDS: Pantoprazole Sodium 40 MG Tablet PO (08:54)
[2024-10-26] MEDS: Sertraline 50 MG Tablet PO (08:54)
[2024-10-26] MEDS: Furosemide 40 MG Tablet PO (08:54)
[2024-10-26] MEDS: Calcium Carbonate 500 MG Tablet PO ×2 (08:54→20:30)
[2024-10-26] MEDS: Carvedilol 25 MG Tablet PO ×2 (08:54→20:32)
[2024-10-26] MEDS: Magnesium Chloride 64 MG Delay Rel.Tablet 128 MG PO (08:54)
[2024-10-26] MEDS: Cyanocobalamin 500 MCG Tablet 3000 MCG PO (08:54)
[2024-10-26] MEDS: Menthol/Lanolin/Calamine/Znox 113 GM Tube 1 APPLIC TOPICAL ×2 (08:55→20:32)
[2024-10-26] MEDS: 0.9% Saline Lock 10 ML Syringe IV ×2 (08:56→20:36)
[2024-10-26] MEDS: Nystatin Powder 15gm Bottle 1 APPLIC TOPICAL (08:56)
[2024-10-26 11:45] LABS: Bedside Glucose 195 mg/dL (74-106)
[2024-10-26] MEDS: Ferrous Sulfate 325 MG Tablet PO (11:54)
[2024-10-26 16:57] LABS: Bedside Glucose 151 mg/dL (74-106)
--- NOTE | 2024-10-26 17:07 | NURSING ---
Patient C/O increased soreness to pop area this morning. Patient given bath this morning. Pop area cleansed and dried. Slight redness noted to outside area. No discharge noted. No drainage noted. Multiple creams and powders have been applied over the weekend and all have been ineffective. Daughter was in this shift and stated they use a cream at home that has some effectiveness and would like to bring it in. Family to bring in cream for nursing to eval and verify with Dr. Bolton.
[2024-10-26] MEDS: Gabapentin 100 MG Capsule 200 MG PO (20:29)
[2024-10-26] MEDS: Atorvastatin Calcium 20 MG Tablet PO (20:31)
[2024-10-26 20:35] VITALS: PULSE 86; RESP 16
[2024-10-26 20:58] VITALS: BP 119/73; PULSE 87
--- NOTE | 2024-10-26 20:58 | NURSING ---
Contacted Dr. Bolton via telephone, notified of pt. c/o leg pain and request for PRN pain medication and c/o anxiety at times, per dayshift WOUND/OSTOMY CLINICAL NURSE SPECIALIST family requesting anxiety med as well for patient. New orders received for Tramadol 50mg Q6H PRN pain and Vistaril 25mg Q6H PRN anxiety/restlessness. Orders repeated back to Dr. Bolton.
[2024-10-26] MEDS: traMADol 50 MG Tablet PO (21:19)
[2024-10-26 22:56] LABS: Bedside Glucose 232 mg/dL (74-106)
[2024-10-27] MEDS: Acetaminophen 500 MG Tablet 1000 MG PO ×3 (05:14→21:39)
[2024-10-27] MEDS: Levothyroxine 88 MCG Tablet PO (05:14)
[2024-10-27 06:18] LABS: Cholesterol 102 mg/dL (200); High Density Lipoprotein 31 mg/dL; Triglycerides 228 mg/dL; Very Low Density Lipoprotein 46 mg/dL (5-40)
[2024-10-27 06:44] LABS: Bedside Glucose 114 mg/dL (74-106)
[2024-10-27 08:26] LABS: Vitamin B12 > 2000 pg/mL (211-911)
[2024-10-27] MEDS: Multivitamins,Therapeutic Tablet 1 TABLET PO (08:26)
[2024-10-27] MEDS: Menthol/Lanolin/Calamine/Znox 113 GM Tube 1 APPLIC TOPICAL ×2 (08:26→21:35)
[2024-10-27] MEDS: Pantoprazole Sodium 40 MG Tablet PO (08:27)
[2024-10-27] MEDS: Furosemide 40 MG Tablet PO (08:27)
[2024-10-27] MEDS: Losartan Potassium 50 MG Tablet PO ×2 (08:27→21:36)
[2024-10-27] MEDS: Magnesium Chloride 64 MG Delay Rel.Tablet 128 MG PO (08:27)
[2024-10-27] MEDS: Carvedilol 25 MG Tablet PO ×2 (08:27→21:36)
[2024-10-27] MEDS: levETIRAcetam 500 MG Tablet PO ×2 (08:27→21:37)
[2024-10-27] MEDS: Nitrofurantoin Macrocrystals 100 MG Capsule PO (08:27)
[2024-10-27] MEDS: Calcium Carbonate 500 MG Tablet PO ×2 (08:27→21:38)
[2024-10-27] MEDS: APIXABAN 5 MG TABLET PO ×2 (08:27→21:37)
[2024-10-27] MEDS: Cyanocobalamin 500 MCG Tablet 3000 MCG PO (08:28)
[2024-10-27] MEDS: Sertraline 50 MG Tablet PO (08:28)
[2024-10-27] MEDS: Senna/Docusate Sodium 1 Tablet PO ×2 (08:28→21:38)
--- NOTE | 2024-10-27 08:52 | NURSING ---
Offered covid vaccine, VIS provided. Resident refuses at this time.
[2024-10-27 10:55] VITALS: BP 110/64; PULSE 82; RESP 16; TEMP 36.3; O2SAT 99
[2024-10-27 11:25] LABS: Bedside Glucose 246 mg/dL (74-106)
[2024-10-27] MEDS: Ferrous Sulfate 325 MG Tablet PO (11:53)
[2024-10-27 16:32] LABS: Bedside Glucose 156 mg/dL (74-106)
[2024-10-27 17:38] VITALS: O2SAT 92
[2024-10-27 21:29] VITALS: BP 129/67; PULSE 77
[2024-10-27] MEDS: Gabapentin 100 MG Capsule 200 MG PO (21:32)
[2024-10-27] MEDS: 0.9% Saline Lock 10 ML Syringe IV (21:33)
[2024-10-27] MEDS: Benzonatate 100 MG Capsule PO (21:33)
[2024-10-27] MEDS: Atorvastatin Calcium 20 MG Tablet PO (21:37)
[2024-10-27 21:40] LABS: Bedside Glucose 200 mg/dL (74-106)
[2024-10-28] MEDS: Levothyroxine 88 MCG Tablet PO (05:07)
[2024-10-28] MEDS: Benzonatate 100 MG Capsule PO (05:08)
[2024-10-28] MEDS: Acetaminophen 500 MG Tablet 1000 MG PO ×3 (05:08→21:22)
[2024-10-28] MEDS: Albuterol IH (6.7 GM) 1 PUFF INHALER 2 PUFF INHALATION (06:15)
[2024-10-28 06:47] LABS: Bedside Glucose 184 mg/dL (74-106)
[2024-10-28] MEDS: Furosemide 40 MG Tablet PO (07:52)
[2024-10-28] MEDS: Multivitamins,Therapeutic Tablet 1 TABLET PO (07:52)
[2024-10-28] MEDS: Nitrofurantoin Macrocrystals 100 MG Capsule PO (07:52)
[2024-10-28] MEDS: Menthol/Lanolin/Calamine/Znox 113 GM Tube 1 APPLIC TOPICAL ×2 (07:52→21:23)
[2024-10-28] MEDS: levETIRAcetam 500 MG Tablet PO ×2 (07:52→21:20)
[2024-10-28] MEDS: Losartan Potassium 50 MG Tablet PO ×2 (07:52→21:20)
[2024-10-28] MEDS: APIXABAN 5 MG TABLET PO ×2 (07:52→21:19)
[2024-10-28] MEDS: Carvedilol 25 MG Tablet PO ×2 (07:52→21:20)
[2024-10-28] MEDS: Magnesium Chloride 64 MG Delay Rel.Tablet 128 MG PO (07:52)
[2024-10-28] MEDS: Pantoprazole Sodium 40 MG Tablet PO (07:53)
[2024-10-28] MEDS: Calcium Carbonate 500 MG Tablet PO ×2 (07:53→21:19)
[2024-10-28] MEDS: Sertraline 50 MG Tablet PO (07:53)
[2024-10-28] MEDS: Nystatin Powder 15gm Bottle 1 APPLIC TOPICAL ×2 (07:53→21:23)
[2024-10-28] MEDS: Cyanocobalamin 500 MCG Tablet 1000 MCG PO (07:53)
[2024-10-28] MEDS: Senna/Docusate Sodium 1 Tablet PO ×2 (07:53→21:21)
[2024-10-28 10:55] VITALS: BP 125/81; PULSE 84; RESP 18; TEMP 36.3; O2SAT 96
[2024-10-28] MEDS: Ferrous Sulfate 325 MG Tablet PO (11:23)
[2024-10-28 12:04] LABS: Bedside Glucose 174 mg/dL (74-106)
[2024-10-28] MEDS: busPIRone 5 MG Tablet PO ×2 (13:12→21:22)
[2024-10-28] MEDS: guaiFENesin Dm 10 ML UDC PO ×2 (13:30→21:19)
[2024-10-28 14:11] VITALS: BMI 32.1
--- NOTE | 2024-10-28 14:21 | CHAPLAIN ---
Type of Pastoral Visit ___ Initial Visit ___ Follow-up Visit ___ On-call Visit ___ General Patient Visit ___ Spiritual Assessment ___ Family Conference ___ Bereavement ___ Rapid Response ___ Code Blue ___ Other (describe below) Pastoral Care Referral From ___ Patient ___ Family ___ Nurse ___ Physician ___ Poultry Farmworker ___ Carpentry Foreman ___ Other (describe below) Sacrament/Intervention ___ Active listening ___ Anointing ___ Amish ___ Bereavement ___ Communion ___ Monica exploration ___ ___ Life review ___ Prayer ___ Reconciliation ___ Sacrament of Sick ___ Supportive presence ___ Wedding ___ Other (describe below) Pastoral Comments patient was sound asleep and was not awakened
[2024-10-28 18:16] LABS: Bedside Glucose 204 mg/dL (74-106)
[2024-10-28] MEDS: Gabapentin 100 MG Capsule 200 MG PO (21:18)
[2024-10-28] MEDS: Atorvastatin Calcium 20 MG Tablet PO (21:21)
[2024-10-28] MEDS: 0.9% Saline Lock 10 ML Syringe IV (21:22)
[2024-10-28 21:26] VITALS: BP 140/73; PULSE 82
[2024-10-28 22:17] LABS: Bedside Glucose 233 mg/dL (74-106)
[2024-10-29] MEDS: guaiFENesin Dm 10 ML UDC PO ×3 (05:47→20:24)
[2024-10-29] MEDS: Acetaminophen 500 MG Tablet 1000 MG PO ×3 (05:47→20:24)
[2024-10-29] MEDS: Levothyroxine 88 MCG Tablet PO (05:47)
[2024-10-29 06:30] LABS: Bedside Glucose 187 mg/dL (74-106)
[2024-10-29 07:46] VITALS: O2SAT 96
[2024-10-29 08:00] VITALS: BP 149/83; PULSE 84; O2SAT 93
[2024-10-29] MEDS: Senna/Docusate Sodium 1 Tablet PO ×2 (08:03→20:24)
[2024-10-29] MEDS: Calcium Carbonate 500 MG Tablet PO ×2 (08:03→20:24)
[2024-10-29] MEDS: Cyanocobalamin 500 MCG Tablet 1000 MCG PO (08:03)
[2024-10-29] MEDS: Magnesium Chloride 64 MG Delay Rel.Tablet 128 MG PO (08:04)
[2024-10-29] MEDS: Nitrofurantoin Macrocrystals 100 MG Capsule PO (08:04)
[2024-10-29] MEDS: APIXABAN 5 MG TABLET PO ×2 (08:04→20:24)
[2024-10-29] MEDS: levETIRAcetam 500 MG Tablet PO ×2 (08:04→20:24)
[2024-10-29] MEDS: Menthol/Lanolin/Calamine/Znox 113 GM Tube 1 APPLIC TOPICAL ×2 (08:04→20:24)
[2024-10-29] MEDS: Sertraline 50 MG Tablet PO (08:04)
[2024-10-29] MEDS: Furosemide 40 MG Tablet PO (08:04)
[2024-10-29] MEDS: Multivitamins,Therapeutic Tablet 1 TABLET PO (08:04)
[2024-10-29] MEDS: busPIRone 5 MG Tablet PO ×2 (08:04→20:24)
[2024-10-29] MEDS: Carvedilol 25 MG Tablet PO ×2 (08:04→20:24)
[2024-10-29] MEDS: Losartan Potassium 50 MG Tablet PO ×2 (08:04→20:24)
[2024-10-29] MEDS: Pantoprazole Sodium 40 MG Tablet PO (08:05)
[2024-10-29] MEDS: Nystatin Powder 15gm Bottle 1 APPLIC TOPICAL ×2 (08:05→20:24)
[2024-10-29] MEDS: Ferrous Sulfate 325 MG Tablet PO (11:46)
[2024-10-29 12:05] LABS: Bedside Glucose 199 mg/dL (74-106)
--- NOTE | 2024-10-29 14:22 | NURSING ---
This RN was called into pt's room by pt's daughters. Daughters were cleaning up pt in bed and said we are getting her up and showering her. This RN told daughters that we need a clearance from physical therapy/doctor to shower, but pt's daughters were insistent on showering pt. Would not take no as answer. Aware of risks. Will monitor.
[2024-10-29 17:46] LABS: Bedside Glucose 197 mg/dL (74-106)
[2024-10-29] MEDS: Gabapentin 100 MG Capsule 200 MG PO (20:24)
[2024-10-29] MEDS: Atorvastatin Calcium 20 MG Tablet PO (20:24)
[2024-10-29 21:37] LABS: Bedside Glucose 277 mg/dL (74-106)
[2024-10-30] MEDS: Acetaminophen 500 MG Tablet 1000 MG PO ×3 (05:42→20:58)
[2024-10-30] MEDS: guaiFENesin Dm 10 ML UDC PO ×3 (05:43→20:56)
[2024-10-30] MEDS: Levothyroxine 88 MCG Tablet PO (05:45)
[2024-10-30 07:00] LABS: Bedside Glucose 189 mg/dL (74-106)
--- NOTE | 2024-10-30 07:54 | NURSING ---
Resident calls for assistance to toilet. Call light answered within a minute. Resident irritable w/ this nurse immediately upon applying slipper socks stating hurry up. Informed resident staff needs to ensure safety w/ transfers and mobility. Will continue to monitor.
[2024-10-30] MEDS: Multivitamins,Therapeutic Tablet 1 TABLET PO (08:04)
--- NOTE | 2024-10-30 08:06 | NURSING ---
I went into patients room to get her washed and dressed for the day . Got her all cleaned up and dressed and she was complaining about the top inside of her vagina hurting . I told her I could not put anything on the inside, I could only put the khurram cream on the outside not the inside. She said ok do that then grumpily. She snapped at me and said you didn't even get it in the right spot I apologized and told her i could not put it in side the vagina.Reported to the nurse she wanted cream inside her vagina , we don't have cream or an order for that When I told patient we don't have an order for anything for the inside of her vagina I noticed her attends sticking out of her pants and wanted to fix it and she yelled at me my stomach is down there I told her to please not yell at me, I was being nice and just trying to adjust her attends and pants .
--- NOTE | 2024-10-30 10:32 | CASEMGMT ---
BIMS (10/19) and PHQ9 (4) interviews completed on this date for MDS assessment. ANH Glaser
[2024-10-30] MEDS: Cyanocobalamin 500 MCG Tablet 1000 MCG PO (11:00)
[2024-10-30] MEDS: Magnesium Chloride 64 MG Delay Rel.Tablet 128 MG PO (11:00)
[2024-10-30] MEDS: Sertraline 50 MG Tablet PO (11:01)
[2024-10-30] MEDS: Furosemide 40 MG Tablet PO (11:01)
[2024-10-30] MEDS: Pantoprazole Sodium 40 MG Tablet PO (11:01)
[2024-10-30] MEDS: Carvedilol 25 MG Tablet PO ×2 (11:01→20:59)
[2024-10-30] MEDS: levETIRAcetam 500 MG Tablet PO ×2 (11:02→20:57)
[2024-10-30] MEDS: Ferrous Sulfate 325 MG Tablet PO (11:05)
[2024-10-30] MEDS: APIXABAN 5 MG TABLET PO ×2 (11:05→20:56)
[2024-10-30] MEDS: Calcium Carbonate 500 MG Tablet PO ×2 (11:05→20:59)
[2024-10-30] MEDS: busPIRone 5 MG Tablet PO ×2 (11:05→20:58)
[2024-10-30] MEDS: Nitrofurantoin Macrocrystals 100 MG Capsule PO (11:05)
[2024-10-30] MEDS: Senna/Docusate Sodium 1 Tablet PO ×2 (11:06→20:57)
[2024-10-30] MEDS: Losartan Potassium 50 MG Tablet PO ×2 (11:06→20:57)
[2024-10-30] MEDS: Menthol/Lanolin/Calamine/Znox 113 GM Tube 1 APPLIC TOPICAL ×2 (11:06→21:00)
[2024-10-30] MEDS: Nystatin Powder 15gm Bottle 1 APPLIC TOPICAL ×2 (11:07→21:00)
[2024-10-30 12:01] LABS: Bedside Glucose 236 mg/dL (74-106)
--- NOTE | 2024-10-30 12:05 | CHAPLAIN ---
Type of Pastoral Visit _x__ Initial Visit ___ Follow-up Visit ___ On-call Visit ___ General Patient Visit ___ Spiritual Assessment ___ Family Conference ___ Bereavement ___ Rapid Response ___ Code Blue ___ Other (describe below) Pastoral Care Referral From _x__ Patient ___ Family ___ Nurse ___ Physician ___ Instrumentation Specialist ___ Auto Seat Cover Installer ___ Other (describe below) Sacrament/Intervention _x__ Active listening ___ Anointing ___ Restorationist ___ Bereavement ___ Communion ___ Monica exploration ___ _x__ Life review _x__ Prayer ___ Reconciliation ___ Sacrament of Sick ___ Supportive presence ___ Wedding ___ Other (describe below) Pastoral Comments patient gives her assessment of how she is doing and how she hopes to be going home soon; pt lives with a daughter and has confidence in the outcome of going home; pt answers questions and engages in conversation about her interests and the celebration of Momo when she returns home; pt is member of a local religious but has not been active in recent years; pt welcomes prayer for support today
[2024-10-30 14:49] VITALS: O2SAT 93
[2024-10-30] MEDS: Albuterol IH (6.7 GM) 1 PUFF INHALER 2 PUFF INHALATION (16:51)
[2024-10-30 17:48] LABS: Bedside Glucose 220 mg/dL (74-106)
[2024-10-30] MEDS: Gabapentin 100 MG Capsule 200 MG PO (20:56)
[2024-10-30] MEDS: Atorvastatin Calcium 20 MG Tablet PO (20:58)
[2024-10-30 21:00] VITALS: BP 109/69; PULSE 74; RESP 16
[2024-10-30 21:42] LABS: Bedside Glucose 214 mg/dL (74-106)
[2024-10-31] MEDS: Acetaminophen 500 MG Tablet 1000 MG PO ×2 (05:14→14:22)
[2024-10-31] MEDS: guaiFENesin Dm 10 ML UDC PO ×2 (05:14→14:22)
[2024-10-31] MEDS: Levothyroxine 88 MCG Tablet PO (05:14)
[2024-10-31 06:04] LABS: Absolute Lymphocyte Count 1.46 X10^3/uL (0.83-4.51); Absolute Neutrophil Count 3.3 X10^3/uL (2.0-7.7); Basophil# 0.07 X10^3/uL; Basophil% 1.2 % (0-1); Eosinophil# 0.35 X10^3/uL; Eosinophils% 5.9 % (0-5); Hematocrit 40.1 % (37-47); Hemoglobin 12.9 g/dL (12.0-15.0); Lymphocyte # 1.46 X10^3/ul (0.83-4.51); Lymphocyte % 24.5 % (19-41); Mean Corp Hgb Conc 32.2 g/dL (32-36); Mean Corpuscular Hgb 31.2 pg (27.0-32.0); Mean Corpuscular Volume 96.9 fL (81-99); Mean Platelet Vol. 10.6 fl (6.2-12.0); Monocyte# 0.72 X10^3/uL; Monocyte% 12.1 % (0-10); NRBC Flagged by Analyzer 0 % (0-5); Neutrophil # 3.31 X10^3/uL (2.7-7.7); Neutrophil % 55.6 % (47-70); Platelet Count 243 K/mm3 (150-450); RBC Distribution Width CV 13.2 % (11.6-14.6); Red Blood Count 4.14 M/mm3 (4.2-5.4)
[2024-10-31 06:40] LABS: Anion Gap 3 (5-15); BUN 22 mg/dL (7-18); BUN/Creat Ratio 19.1 RATIO (10-20); Chloride 102 mmol/L (98-107); Creatinine, Serum 1.15 mg/dL (0.55-1.02); EST Glomerular Filtration Rate 47 mL/min (>60); Est Glom Filt Rate - Afr Amer 57 mL/min (>60); Estimated Creatinine Clearance 37.63 ml/min; Glucose 223 mg/dL (74-106); Potassium 3.4 mmol/L (3.5-5.1); Sodium Level 140 mmol/L (136-145)
[2024-10-31 06:56] LABS: Bedside Glucose 234 mg/dL (74-106)
[2024-10-31 07:43] VITALS: O2SAT 99
[2024-10-31] MEDS: APIXABAN 5 MG TABLET PO (07:52)
[2024-10-31] MEDS: Cyanocobalamin 500 MCG Tablet 1000 MCG PO (07:52)
[2024-10-31] MEDS: Multivitamins,Therapeutic Tablet 1 TABLET PO (07:52)
[2024-10-31] MEDS: Sertraline 50 MG Tablet PO (07:52)
[2024-10-31] MEDS: Senna/Docusate Sodium 1 Tablet PO (07:52)
[2024-10-31] MEDS: busPIRone 5 MG Tablet PO (07:52)
[2024-10-31] MEDS: Carvedilol 25 MG Tablet PO (07:52)
[2024-10-31] MEDS: Nitrofurantoin Macrocrystals 100 MG Capsule PO (07:52)
[2024-10-31] MEDS: Losartan Potassium 50 MG Tablet PO (07:52)
[2024-10-31] MEDS: levETIRAcetam 500 MG Tablet PO (07:53)
[2024-10-31] MEDS: Menthol/Lanolin/Calamine/Znox 113 GM Tube 1 APPLIC TOPICAL (07:53)
[2024-10-31] MEDS: Pantoprazole Sodium 40 MG Tablet PO (07:53)
[2024-10-31] MEDS: Furosemide 40 MG Tablet PO (07:53)
[2024-10-31] MEDS: Magnesium Chloride 64 MG Delay Rel.Tablet 128 MG PO (07:53)
[2024-10-31] MEDS: Calcium Carbonate 500 MG Tablet PO (07:53)
[2024-10-31] MEDS: Nystatin Powder 15gm Bottle 1 APPLIC TOPICAL (07:54)
[2024-10-31 08:00] VITALS: BP 132/90; PULSE 97; RESP 18; TEMP 36.3; O2SAT 99
--- NOTE | 2024-10-31 08:45 | NURSING ---
Plan Manager Note; MDS for 10/30/2024 Complete
--- NOTE | 2024-10-31 10:18 | CASEMGMT ---
Addendum entered by Dorota Bowden 10/31/24 11:54: Social Work [facility] is able to accept pt for PT/OT/SN with start of care on 11/03. ANH Glaser Original Note: Plan of care meeting held with pt and pt's dgts Leslie and Shagufta in attendance. PT/OT/ST discussed pt progress with therapy. Pt became tearful and stating that she wants to go home today and will not stay in TCU any longer. Pt's dgts stating that they feel pt is back to baseline and they are agreeable for pt to return home today. Pt lives with her dgt Leslie who is able to assist as needed. SW spoke with physician who is agreeable to dc home today. IDT also agreeable. Pt's dgt stating that she would like home health care through [facility] (PT/OT). VM left with referral. Discharge Date: 10/31 Discharge Disposition: home with [facility] PT/OT ANH Glaser
[2024-10-31] MEDS: Ferrous Sulfate 325 MG Tablet PO (11:43)
[2024-10-31 11:54] LABS: Bedside Glucose 271 mg/dL (74-106)
[2024-10-31 12:15] VITALS: PULSE 97; RESP 18; O2SAT 99
--- NOTE | 2024-10-31 12:55 | DCINST_ITS ---
Discharge Instructions Diet Discharge Diet: - (1800-calorie carb controlled diet. Low-fat, no added salt.) DC O2, CPAP, BIPAP needs Home O2 Discharge instructions: No Dressing / Incision Discharge Activity: May Not Drive, May Shower and Use Walker Weight Bearing Status: Full weight bearing Keep extremity elevated above heart level: Legs Dressing / Incision Call your doctor if you observe: Fever of 101 or Higher, Inability to have a bowel movement, Shortness of breath, Fainting spells, Chest pain, Increased palpitations (irregular heartbeat), Calf discomfort, Uncontrolled pain and - (STROKE symptoms: facial droop, slurred speech, inability to get words out, weakness on 1 side of the body and not the other, numbness on 1 side of the body and not the other, inability to maintain your balance sitting or standing, vertigo. ) Follow Up Care Please Follow Up With: PCP When: Within 2 weeks of discharge. Test Results: Test results from this visit will be discussed in further detail at your follow- up appointment, if applicable. Discharge Plan Admission Admit Date/Time: 10/23/24 15:09 Primary Reason for Your Visit: Debility secondary to pneumonia/generalized weakness Attending Provider: John Paul Bolton Chi Primary Care Provider: Becca Jacobs NP Discharge Orders/Prescriptions Prescriptions: New buspirone 5 mg Tablet 5 mg PO BID Qty: 60 0RF Rx Instructions: Take this medication twice a day to control anxiety magnesium chloride [Mag 64] 64 mg Tablet,Delayed Release (Dr/Ec) 128 mg PO DAILY Qty: 60 0RF Rx Instructions: You will take 2 tablets once daily. acetaminophen 325 mg tablet 650 mg PO Q4H PRN (Reason: pain) Qty: 120 0RF Continued levetiracetam 500 mg tablet 500 mg PO BID calcium carbonate 200 mg calcium (500 mg) tablet,chewable 500 mg PO BID albuterol sulfate 1 PUFF inhaler 2 puff inhalation Q6H PRN PRN (Reason: Sob &/Or Wheezing) omeprazole 40 mg capsule,delayed release(DR/EC) 40 mg PO DAILY Patient Comments: TAKE 1 CAPSULE BY MOUTH EVERY DAY multivitamin [Daily Multi-Vitamin] Tablet 1 tab PO DAILY levothyroxine 88 mcg Tablet 88 mcg PO 0600 Qty: 30 0RF ferrous sulfate [FeroSul] 325 mg (65 mg iron) Tablet 325 mg PO DAILY@1200 Qty: 30 0RF gabapentin 100 mg Capsule 200 mg PO 1999 Qty: 60 0RF Rx Instructions: 2 capsules at 8 PM nightly for nerve pain in the legs Olopatadine Hcl 0 ml ophthalmic (eye) BID Qty: 0 0RF sertraline 50 mg Tablet 50 mg PO DAILY Qty: 30 0RF cyanocobalamin (vitamin B-12) 3,000 mcg capsule 3,000 mcg PO DAILY Qty: 30 0RF Trulicity 0.75 mg/0.5 mL pen injector 0.75 mg subcut QWEEK Qty: 2 0RF Patient Comments: INJECT 0.75 MG SUBCUTANEOUSLY ONE TIME A WEEK. Rx Instructions: Take on Sunday systane dry eye nitrofurantoin monohyd/m-cryst 100 mg capsule 1 cap PO DAILY cholecalciferol (vitamin D3) 50 mcg (2,000 unit) capsule 50 mcg PO DAILY Eliquis 5 mg tablet 5 mg PO BID carvedilol 25 mg tablet 25 mg PO BID Qty: 60 11RF Rx Instructions: must administer with a meal/food furosemide [Lasix] 40 mg tablet 40 mg PO DAILY Qty: 90 3RF losartan 50 mg tablet 50 mg PO BID Qty: 60 11RF simvastatin 40 mg tablet 40 mg PO QHS Qty: 90 3RF Discontinued acetaminophen 500 mg Tablet 1,000 mg PO 1300,2100 Qty: 120 0RF benzonatate 100 mg capsule 100 mg PO TID PRN PRN (Reason: cough) magnesium chloride [Mag 64] 64 mg Tablet,Delayed Release (Dr/Ec) 64 mg PO DAILY Rx Instructions: 2 tabs twice a day apixaban 5 mg tablet 5 mg PO BID Qty: 60 11RF Referrals / Follow Up: Becca Jacobs NP, METER READERS SUPERVISOR-C [Primary Care Provider] - Disposition Disposition (needs filled in before D/C Order can be placed): Home, Self Care
[2024-10-31 13:22] VITALS: BP 132/90; PULSE 97; RESP 18; TEMP 36.3; O2SAT 99
--- NOTE | 2024-10-31 13:32 | PCM.DC.SUM ---
Providers Date of Admission: 10/23/24 Date of Discharge: 10/31/24 Primary Care Physician: MAK Colby Reason For Visit: HYPOXIA & PNEUMONIA Diagnosis Discharge Diagnosis (1) Debility: Status: Acute Code(s): R53.81 - Other malaise Plan: Due to multifocal pneumonia, influenza A and generalized weakness. (2) Weakness: Status: Resolved Code(s): R53.1 - Weakness (3) Hypoxia: Status: Resolved Code(s): R09.02 - Hypoxemia (4) Pneumonia: Status: Resolved Code(s): J18.9 - Pneumonia, unspecified organism Qualifiers: Pneumonia type: due to influenza A virus Qualified Code(s): J10.00 - Influenza due to other identified influenza virus with unspecified type of pneumonia (5) Influenza A: Status: Acute Code(s): J10.1 - Influenza due to other identified influenza virus with other respiratory manifestations (6) CVA (cerebral vascular accident): Status: Inactive Code(s): I63.9 - Cerebral infarction, unspecified Qualifiers: CVA mechanism: unspecified Qualified Code(s): I63.9 - Cerebral infarction, unspecified (7) Atrial fibrillation: Status: Chronic Code(s): I48.91 - Unspecified atrial fibrillation Qualifiers: Atrial fibrillation type: unspecified chronic Qualified Code(s): I48.20 - Chronic atrial fibrillation, unspecified (8) HFrEF (heart failure with reduced ejection fraction): Status: Chronic Code(s): I50.20 - Unspecified systolic (congestive) heart failure (9) GERD (gastroesophageal reflux disease): Status: Chronic Code(s): K21.9 - Gastro-esophageal reflux disease without esophagitis Qualifiers: Esophagitis presence: esophagitis presence not specified Qualified Code(s): K21.9 - Gastro-esophageal reflux disease without esophagitis (10) Allergic conjunctivitis: Status: Chronic Code(s): H10.10 - Acute atopic conjunctivitis, unspecified eye Qualifiers: Laterality: bilateral Qualified Code(s): H10.13 - Acute atopic conjunctivitis, bilateral (11) B12 deficiency: Status: Acute Code(s): E53.8 - Deficiency of other specified B group vitamins (12) Diabetes: Status: Chronic Code(s): E11.9 - Type 2 diabetes mellitus without complications Qualifiers: Diabetes mellitus type: type 2 Diabetes mellitus laborer marine terminal insulin use: without laborer marine terminal use Diabetes mellitus complication status: with circulatory complication Diabetes mellitus complication detail: with other circulatory complications Qualified Code(s): E11.59 - Type 2 diabetes mellitus with other circulatory complications Plan: Hemoglobin A1c at admission to the hospital was 8.6. (13) Iron deficiency anemia: Status: Resolved Code(s): D50.9 - Iron deficiency anemia, unspecified Qualifiers: Iron deficiency anemia type: unspecified iron deficiency Qualified Code(s): D50.9 - Iron deficiency anemia, unspecified Plan: She is on Plavix and Eliquis-chronically takes iron to prevent anemia. (14) Neuropathic pain: Status: Chronic Code(s): M79.2 - Neuralgia and neuritis, unspecified (15) Hypothyroidism: Status: Chronic Code(s): E03.9 - Hypothyroidism, unspecified Qualifiers: Hypothyroidism type: acquired Qualified Code(s): E03.9 - Hypothyroidism, unspecified (16) Depression: Status: Chronic Code(s): F32.9 - Major depressive disorder, single episode, unspecified Qualifiers: Depression Type: unspecified Qualified Code(s): F32.A - Depression, unspecified (17) Seizure disorder: Status: Chronic Code(s): G40.909 - Epilepsy, unspecified, not intractable, without status epilepticus (18) Hyperlipidemia: Status: Chronic Code(s): E78.5 - Hyperlipidemia, unspecified Qualifiers: Hyperlipidemia type: pure hypercholesterolemia Qualified Code(s): E78.00 - Pure hypercholesterolemia, unspecified; E78.0 - Pure hypercholesterolemia (19) Hypomagnesemia: Status: Chronic Code(s): E83.42 - Hypomagnesemia (20) Anxiety: Status: Acute Code(s): F41.9 - Anxiety disorder, unspecified Plan: Started on BuSpar 5 mg p.o. twice daily and tells me at discharge that her anxiety is better and she would like to continue BuSpar 5 mg twice daily. Prescription was written. Plan 1. Discharge home with [facility] home health service. Has been living with her daughter who is comfortable taking her home and feels she is at her baseline. Medications at Discharge Home Medications albuterol sulfate 90 mcg/actuation aerosol inhaler 2 puff inhalation Q6H PRN PRN Sob &/Or Wheezing 12/04/17 omeprazole 40 mg capsule,delayed release 40 mg PO DAILY GERD 11/06/23 multivitamin (Daily Multi-Vitamin tablet) 1 tab PO DAILY supplement 12/05/23 Olopatadine HCl 0 ml ophthalmic (eye) BID ##0 12/21/23 cyanocobalamin (vitamin B-12) 3,000 mcg capsule 3,000 mcg PO DAILY health maintenance #30 caps 12/21/23 dulaglutide 0.75 mg/0.5 mL subcutaneous pen injector (Trulicity) 0.75 mg (0.5 mL) subcut QWEEK glucose #2 mL 12/21/23 ferrous sulfate 325 mg (65 mg iron) tablet (FeroSul) 325 mg PO DAILY@1200 health maintenance #30 tabs 12/21/23 gabapentin 100 mg capsule 200 mg (2 x 100 mg) PO 2000 pain #60 caps 12/21/23 levothyroxine 88 mcg tablet 88 mcg PO 0600 Thyroid #30 tabs 12/21/23 sertraline 50 mg tablet 50 mg PO DAILY Depression #30 tabs 12/21/23 levetiracetam 500 mg tablet 500 mg PO BID seizures 12/28/23 carvedilol 25 mg tablet 25 mg PO BID BP #60 tabs 12/31/23 furosemide 40 mg tablet (Lasix) 40 mg PO DAILY please adjust prepackaged meds #90 tabs 01/29/24 losartan 50 mg tablet 50 mg PO BID BP #60 tabs 02/19/24 calcium carbonate 500 mg PO BID supplement 03/21/24 simvastatin 40 mg tablet 40 mg PO QHS CHOLESTEROL #90 tabs 07/25/24 apixaban 5 mg tablet (Eliquis) 5 mg PO BID 10/16/24 nitrofurantoin monohydrate/macrocrystals 100 mg capsule 1 cap PO DAILY urinary uti 10/17/24 systane dry eye dry eyes 10/17/24 cholecalciferol (vitamin D3) 50 mcg (2,000 unit) capsule 50 mcg PO DAILY health 10/23/24 acetaminophen 325 mg tablet 650 mg (2 x 325 mg) PO Q4H PRN pain #120 tabs 10/31/24 buspirone 5 mg tablet 5 mg PO BID #60 tabs 10/31/24 magnesium chloride 64 mg (magnesium chloride) tablet,delayed release (Mag 64) 128 mg (2 x 64 mg) PO DAILY #60 tabs 10/31/24 Hospital Course Operations None Procedures None Summary of Care Provided Minutes Spent on Discharge: 30 Hospital Course: DILIA MCKEON, is a 89 Female who presents with followin10/17/2024 [facility] ED weakness. Ongoing weakness, on Augmentin for upper respiratory infection. Ill appearing, more weak, cannot get around. Abdominal pain, shortness of breath, IV fluids given. WBC 18.8, Glucose 259, Lactic acid 3.2. CT A/P shows bilateral multifocal infiltrates consistent with pneumonia. Zosyn, Vancomycin given, oxygen applied. 10/17/2024 Admit [facility]. Rocephin, Azithromycin for pneumonia. Check C. Diff for diarrhea. PT/OT for debility. 10/18/2024 Weak, tired, wheezing, dry cough. Tamiflu for influenza. Rocephin, Azithromycin for pneumonia. 10/19/2024 Feeling better. Tamiflu x 5 days for influenza. Wean oxygen as tolerated. 10/20/2024 Weak, but better. Rocephin, Azithromycin for pneumonia. A1c 8.6. 10/21/2024 Feels weak, oxygen 2 liters per nasal cannula. Plan unchanged, blood cultures negative. 10/22/2024 Oxygen 2 liters per nasal cannula. Rocephin, Azithromycin x 5 edays, last dose tomorrow. PT/OT SNF. 10/23/2024 Admit to TCU with debility, here for rehabilitation, strengthening, prior to discharge home with daughter. Dilia did not really significantly improve with regard to her functional abilities while on TCU. At the time of discharge she is able to do 6 sit to stands in 30 seconds (unchanged from admission). She is able to do the timed up and go test in 30 seconds with a wheeled walker (unchanged from admission). She is able to ascend/descend 3 steps with 2 handrails at contact-guard assist and ambulate 60 feet with a wheeled walker and this is unchanged from admission. She is now mod assist with bathing and she was maximum assistance at admission to TCU. She requires minimal assistance with upper body dressing and this is unchanged. She requires max assist with lower body dressing and this also is unchanged from admission to TCU. Complications while on TCU included a persistent cough which was unresponsive to Tessalon Perles but responded well to Robitussin DM. She has a rare cough at the time of discharge. Dilia was quite anxious at times while on TCU. She and her daughter both requested that she be started on something for anxiety. She was started on BuSpar 5 mg p.o. twice daily and she feels this has made a significant improvement in her level of anxiety. She requested that I write a prescription for BuSpar and continue it at discharge. On 10/31/2024 Dilia's daughter felt that she was at her baseline and that she could handle her at home. She was discharged to home on 10/31/2024 and will have [facility] home health care at discharge. She will follow-up with her primary care physician within 2 weeks postdischarge. Blood sugars are not adequately controlled at discharge and her hemoglobin A1c was greater than 8 at admission. Adjustments to her hypoglycemic regimen have been deferred to her primary care doctor. Physical Exam Const alert, oriented x3 and no apparent distress Constitutional Narrative: Appears much less anxious than she was 3 days prior to discharge when I saw her. General Appearance: cooperative and well kempt HEENT head/scalp atraumatic Eyes PERRL, EOMs intact bilaterally, conjunctivae normal and no scleral icterus Eyes Narrative: No discharge from the eyes Neck supple Chest Chest: symmetrical chest wall rise Resp normal respiratory effort, normal air movement, no use of accessory muscles and clear to auscultation bilaterally Effort and Inspection: able to speak in complete sentences Cardio no rub and no gallops Cardio Narrative: She was in a regular rhythm at the time of discharge with a normal heart rate. GI normal to inspection, nondistended, normoactive bowel sounds and soft to palpation GI Narrative: No guarding with palpation Extremity no calf tenderness and no pedal edema Skin Rashes: no rashes Psych Psych Narrative: She makes good eye contact with me when we are talking and she is much less anxious than she was when I saw her 3 days ago. Appearance: grossly normal, appropriate and well kempt Weight / BMI Weight Weight: 192 lb 11.2 oz Body Mass Index (BMI) 32.1 ABG / Lab / Microbiology Data 10/31/24 05:04 10/31/24 05:04 Laboratory: Laboratory Results - last 24 hr 10/30/24 16:56: POC Glucose 220 H 10/30/24 21:22: POC Glucose 214 H 10/31/24 05:04: WBC 6.0, RBC 4.14 L, Hgb 12.9, Hct 40.1, MCV 96.9, MCH 31.2, MCHC 32.2, RDW Std Deviation 46.0 H, RDW Coeff of Bhupinder 13.2, Plt Count 243, MPV 10.6, Immature Gran % (Auto) 0.700, Neut % (Auto) 55.6, Lymph % (Auto) 24.5, [place] % (Auto) 12.1 H, Eos % (Auto) 5.9 H, Baso % (Auto) 1.2 H, Absolute Neuts (auto) 3.3, Absolute Lymphs (auto) 1.46, Nucleated RBC % 0, Sodium 140, Potassium 3.4 L, Chloride 102, Carbon Dioxide 35.0 H, Anion Gap 3 L, BUN 22 H, Creatinine 1.15 H, Estim Creat Clear Calc 37.63, Est GFR (MDRD) Af Amer 57 L, Est GFR (MDRD) Non-Af 47 L, BUN/Creatinine Ratio 19.1, Glucose 223 H, Calcium 9.0 10/31/24 06:37: POC Glucose 234 H 10/31/24 11:13: POC Glucose 271 H Microbiology: Microbiology 10/27/24 10:03 Nasal Secretion SARS-CoV-2 Antigen (Rapid) - Final D/C Instructions Discharge Diet: - (1800-calorie carb controlled diet. Low-fat, no added salt.) Weight Bearing Status: Full weight bearing Keep extremity elevated above heart level: Legs Call your doctor if you observe: Fever of 101 or Higher, Inability to have a bowel movement, Shortness of breath, Fainting spells, Chest pain, Increased palpitations (irregular heartbeat), Calf discomfort, Uncontrolled pain and - (STROKE symptoms: facial droop, slurred speech, inability to get words out, weakness on 1 side of the body and not the other, numbness on 1 side of the body and not the other, inability to maintain your balance sitting or standing, vertigo. ) DC O2, CPAP, BIPAP Needs Home O2 Discharge instructions: No Please Follow Up With: PCP When: Within 2 weeks of discharge. Meaningful Use Info Meaningful Use Meaningful Use Diagnoses (Choose all that apply): None applicable Ischemic Stroke Statin Dosing Therapy Reference: STATIN DOSE THERAPY REFERENCE: * Patients > 75 years receive moderate or high dose statin therapy. * Patients 75 years or YOUNGER should receive HIGH intensity statin dose unless contraindicated. You will be required to document reason for non-treatment if statin daily dose does not meet guidelines. HIGH DOSE STATIN THERAPY DAILY Atorvastatin > than or = to 40 mg Rosuvastatin > than or = to 20 mg Amlodipine + Atorvastatin > than or = to 2.5/40 mg Ezetimibe + Simvastatin 10/80 mg Simvastatin 80mg Discharge Plan Admission Admit Date/Time: 10/23/24 15:09 Primary Reason for Your Visit: Debility secondary to pneumonia/generalized weakness Attending Provider: John Paul Bolton Chi Primary Care Provider: Becca Jacobs NETWORK SYSTEMS ENGINEER Discharge Orders/Prescriptions Prescriptions: New buspirone 5 mg Tablet 5 mg PO BID Qty: 60 0RF Rx Instructions: Take this medication twice a day to control anxiety magnesium chloride [Mag 64] 64 mg Tablet,Delayed Release (Dr/Ec) 128 mg PO DAILY Qty: 60 0RF Rx Instructions: You will take 2 tablets once daily. acetaminophen 325 mg tablet 650 mg PO Q4H PRN (Reason: pain) Qty: 120 0RF Continued levetiracetam 500 mg tablet 500 mg PO BID calcium carbonate 200 mg calcium (500 mg) tablet,chewable 500 mg PO BID albuterol sulfate 1 PUFF inhaler 2 puff inhalation Q6H PRN PRN (Reason: Sob &/Or Wheezing) omeprazole 40 mg capsule,delayed release(DR/EC) 40 mg PO DAILY Patient Comments: TAKE 1 CAPSULE BY MOUTH EVERY DAY multivitamin [Daily Multi-Vitamin] Tablet 1 tab PO DAILY levothyroxine 88 mcg Tablet 88 mcg PO 0600 Qty: 30 0RF ferrous sulfate [FeroSul] 325 mg (65 mg iron) Tablet 325 mg PO DAILY@1200 Qty: 30 0RF gabapentin 100 mg Capsule 200 mg PO 2000 Qty: 60 0RF Rx Instructions: 2 capsules at 8 PM nightly for nerve pain in the legs Olopatadine Hcl 0 ml ophthalmic (eye) BID Qty: 0 0RF sertraline 50 mg Tablet 50 mg PO DAILY Qty: 30 0RF cyanocobalamin (vitamin B-12) 3,000 mcg capsule 3,000 mcg PO DAILY Qty: 30 0RF Trulicity 0.75 mg/0.5 mL pen injector 0.75 mg subcut QWEEK Qty: 2 0RF Patient Comments: INJECT 0.75 MG SUBCUTANEOUSLY ONE TIME A WEEK. Rx Instructions: Take on Sunday systane dry eye nitrofurantoin monohyd/m-cryst 100 mg capsule 1 cap PO DAILY cholecalciferol (vitamin D3) 50 mcg (2,000 unit) capsule 50 mcg PO DAILY Eliquis 5 mg tablet 5 mg PO BID carvedilol 25 mg tablet 25 mg PO BID Qty: 60 11RF Rx Instructions: must administer with a meal/food furosemide [Lasix] 40 mg tablet 40 mg PO DAILY Qty: 90 3RF losartan 50 mg tablet 50 mg PO BID Qty: 60 11RF simvastatin 40 mg tablet 40 mg PO QHS Qty: 90 3RF Discontinued acetaminophen 500 mg Tablet 1,000 mg PO 1300,2100 Qty: 120 0RF benzonatate 100 mg capsule 100 mg PO TID PRN PRN (Reason: cough) magnesium chloride [Mag 64] 64 mg Tablet,Delayed Release (Dr/Ec) 64 mg PO DAILY Rx Instructions: 2 tabs twice a day apixaban 5 mg tablet 5 mg PO BID Qty: 60 11RF Referrals / Follow Up: Becca Jacobs NP, NETWORK SYSTEMS ENGINEER-C [Primary Care Provider] - Disposition Disposition (needs filled in before D/C Order can be placed): Home, Self Care Charges/Coding Visit Charges Inpatient E&M: 24094 SNF Disch
--- NOTE | 2024-10-31 14:42 | CASEMGMT ---
Social Work Per pt's dgt, pt is current with Palliative Medicine. Discharge orders securely emailed to [facility] Palliative Medicine ANH Glaser
--- NOTE | 2024-11-04 10:40 | MDS.RN ---
Information for the MDS was obtained from review of the clinical record, interview of resident, staff, and direct observation of resident?s care.
== END 2024-10-31 16:20 | disposition home health service (06) | DRG 194 ==
PROVIDERS: Admitting Provider Family Medicine Geriatric Medicine; PCP Registered Nurse; Visit Provider Family Medicine Geriatric Medicine
DX: J10.00 Influenza due to other identified influenza virus with unspecified type of pneumonia (principal); I42.8 Other cardiomyopathies; I48.20 Chronic atrial fibrillation, unspecified; I50.22 Chronic systolic (congestive) heart failure; I27.21 Secondary pulmonary arterial hypertension; D50.9 Iron deficiency anemia, unspecified; E11.40 Type 2 diabetes mellitus with diabetic neuropathy, unspecified; E03.9 Hypothyroidism, unspecified; I11.0 Hypertensive heart disease with heart failure; G40.909 Epilepsy, unspecified, not intractable, without status epilepticus; F32.9 Major depressive disorder, single episode, unspecified; E53.8 Deficiency of other specified B group vitamins; I25.10 Atherosclerotic heart disease of native coronary artery without angina pectoris; E78.00 Pure hypercholesterolemia, unspecified; K21.9 Gastro-esophageal reflux disease without esophagitis; E83.42 Hypomagnesemia; F41.9 Anxiety disorder, unspecified; E11.59 Type 2 diabetes mellitus with other circulatory complications; Z79.890 Hormone replacement therapy; R09.02 Hypoxemia; Z79.85 Long-term (current) use of injectable non-insulin antidiabetic drugs; Z79.01 Long term (current) use of anticoagulants; Z79.899 Other long term (current) drug therapy; Z86.73 Personal history of transient ischemic attack (TIA), and cerebral infarction without residual deficits
CPT/HCPCS: 36415; 80048; 80061; 82607; 82962; 85025; 87811; 92507; 92523; 97110; 97116; 97129; 97162; 97166; 97530; 97535; 97802; A4216

== ENCOUNTER 2024-11-28 14:56 | Outpatient (RCR) | payer MEDICARE, OTHER, SELFPAY ==
[2024-11-28 15:28] LABS: Color, Urine Yellow (Yellow); Glucose, Dipstick Normal (Normal); Ketone-Dipstick Negative (Negative); Leukocyte Esterase-Dipstick 500 /ul (Negative); Nitrite-Dipstick Negative (Negative); Occult Blood-Urine Negative /ul (Negative); Protein-Dipstick 15 mg/dl (Negative); Urine Bilirubin Dipstick Negative (Negative); Urine Clarity Clear (Clear); Urine Urobilinogen Normal (Normal)
== END 2024-11-28 18:00 | disposition home or self-care (01) ==
LOC: HHLAB 14:56
PROVIDERS: PCP Registered Nurse; Referring Provider Clinical Nurse Specialist Adult Health; Visit Provider Clinical Nurse Specialist Adult Health
DX: J10.1 Influenza due to other identified influenza virus with other respiratory manifestations (principal)
CPT/HCPCS: 81002; 87077; 87086; 87088; 87186